=== PATIENT | male | born 1945 | race Caucasian/White ===

== ENCOUNTER 2016-10-26 20:18 | Emergency (ER) | payer MEDICARE, OTHER ==
[~2016-10-26] VITALS: Ht 175.3 cm; Wt 113.8 kg
[~2016-10-26 20:18] MED LIST: BENADRYL ALLERG25 MG PO; COUMADIN5 MG PO; DILAUDID4 MG PO; ENOXAPARIN120 MG/0.8 SUB-Q; FAMOTIDINE40 MG PO; FENOFIBRATE40 MG PO; GLUCOPHAGE XR500 MG PO; IRON325 MG PO; LEVOTHYROXINE50 MCG PO; LISINOPRIL5 MG PO; METOPROLOL SUCC50 MG PO; MIRALAX17 GM PO; OXYCODONE HCL10 MG PO; PERCOCET 10-321 EACH PO; PERCOCET 5-3251 EACH PO; SUPER B COMPLE1 EACH PO; TOPROL XL100 MG PO; TOPROL XL50 MG PO; XARELTO10 MG PO; XARELTO20 MG PO; ZOSTAVAX VIAL1 VIAL SUB-Q
[2016-10-26] MEDS ORDERED: EZETIMIBE10 MG PO (20:28)
--- NOTE | 2016-10-27 12:27 | EKG ---
[facility] [address] [facility] [place], [place] [address] Signed Normal sinus rhythm Normal ECG No previous ECGs available Confirmed by SUREKHA ESPARZA MD ([id number]) on 10/27/2016 12:27:43 PM Electronically Signed By: SUREKHA ESPARZA MD 10/27/16 1227 PATIENT NAME: NOLA VELASCO JR Electrocardiogram DATE OF : 47 PHYSICIAN: SUREKHA ESPARZA MD REPORT #: [id number] REPORT IS CONFIDENTIAL AND NOT TO BE RELEASED WITHOUT AUTHORIZATION
[2016-11-07] MEDS ORDERED: BAYER CHEWABLE81 MG PO (08:32)
[2016-11-07] MEDS ORDERED: PLAVIX75 MG PO (08:32)
[2017-01-16] MEDS ORDERED: VITAMIN D1000 UNI1 PO (08:44)
== END 2016-10-27 01:49 | disposition short-term general hospital (02) ==
LOC: ED 20:18
DX: I20.0 Unstable angina (principal); E11.9 Type 2 diabetes mellitus without complications; E78.00 Pure hypercholesterolemia, unspecified; I10 Essential (primary) hypertension; E03.9 Hypothyroidism, unspecified; Z87.891 Personal history of nicotine dependence; Z88.0 Allergy status to penicillin; Z88.5 Allergy status to narcotic agent; Z88.8 Allergy status to other drugs, medicaments and biological substances; Z90.49 Acquired absence of other specified parts of digestive tract; Z96.653 Presence of artificial knee joint, bilateral; Z96.612 Presence of left artificial shoulder joint; Z79.899 Other long term (current) drug therapy; Z79.84 Long term (current) use of oral hypoglycemic drugs
CPT/HCPCS: 71010; 80053; 82550; 82553; 83735; 83874; 84484; 85025; 85610; 85730; 93005; 93010; 99285

== ENCOUNTER 2017-10-15 18:27 | Emergency (ER) | payer MEDICARE, OTHER ==
[~2017-10-15] VITALS: Ht 175.3 cm; Wt 113.8 kg
[~2017-10-15 18:27] MED LIST changes: +BAYER CHEWABLE81 MG PO; +EZETIMIBE10 MG PO; +PLAVIX75 MG PO; +VITAMIN D1000 UNI1 PO
== END 2017-10-15 19:05 | disposition home or self-care (01) ==
LOC: ED 18:27
DX: S51.012A Laceration without foreign body of left elbow, initial encounter (principal); E11.9 Type 2 diabetes mellitus without complications; E78.00 Pure hypercholesterolemia, unspecified; I10 Essential (primary) hypertension; E03.9 Hypothyroidism, unspecified; Z87.891 Personal history of nicotine dependence; Z88.0 Allergy status to penicillin; Z88.8 Allergy status to other drugs, medicaments and biological substances; Z88.5 Allergy status to narcotic agent; Z88.1 Allergy status to other antibiotic agents; Z79.899 Other long term (current) drug therapy; Z79.84 Long term (current) use of oral hypoglycemic drugs; Z79.01 Long term (current) use of anticoagulants; W22.8XXA Striking against or struck by other objects, initial encounter
CPT/HCPCS: 99282

== ENCOUNTER 2019-02-10 15:20 | Inpatient (IN) | payer MEDICARE, OTHER ==
[~2019-02-10] VITALS: Ht 175.3 cm; Wt 119.3 kg
--- OUTSIDE RECORDS SUMMARY | ~2019-02-10 | XMS | Encounter Summary ---
Demographics + + + | Address | [address] | | | [place] [address] | + + + | Home Phone | | + + + | Preferred Language | Unknown | + + + | Marital Status | | + + + | Moravian Affiliation | NRP | + + + | Race | White | + + + | Ethnic Group | Not or | + + + Author + + + | Organization | Unknown | + + + | Address | Unknown | + + + | Phone | Unavailable | + + + Support + + +---------+ + | Name | Relationship | Address | Phone | + + +---------+ + | Lara Azevedo | BECKY | Unknown | | + + +---------+ + Care Team Providers + +------+ + | Care Black Studies Professor Name | Role | Phone | + +------+ + | Kait Velazquez MD PCP | | + +------+ + Encounter Details +--------+--------+ + + + | Date | Type | Department | Care Team | Description | +--------+--------+ + + + | 11/19/ | Travel | | | | | 2019 | | | | | +--------+--------+ + + + Social History + +-------+ [...] Description | +--------+---------+ + + + | 02/18/ | Office | Urology | Andrew Cloud, | | | 2018 | Visit | | [address] | | | | | | [address] | | | | | | [place] [address] | | | | | | [phone] | | | | | | | | +--------+---------+ + + + | 02/28/ | Office | Neurological Surgery | Cosme Baker, | | | 2019 | Visit | | [address] | | | | | | [place] | | | | | | [address] | | | | | | | | +--------+---------+ + + + documented as of this encounter Visit Diagnoses Not on filedocumented in this encounter"
--- OUTSIDE RECORDS SUMMARY | ~2019-02-10 | XMS | Encounter Summary ---
Demographics + + + | Address | [address] | | | [place] [address] | + + + | Home Phone | | + + + | Preferred Language | Unknown | + + + | Marital Status | | + + + | Temple Affiliation | NRP | + + + [...] Team Providers + +------+ + | Care Signal Maintainer Name | Role | Phone | + [...] INTERBODY FUSION | | | | [address] [place], [place] | [address] | L4-5/TRANSFORAMINAL | | | | [address] | [place] [address] | INTERBODY FUSION | | | | | [phone] | L5-S1/POSTERIOR | | | | | [...] + documented as of this encounter Discharge Instructions Discharge Instr - [...] -No forward bending to the floor to fern picker objects -Keep head above the level [...] NOT RESTART THESE MEDICATIONS UNTIL CLEARED BY [facility] NE[facility]OS[facility]ERY. Activity: -Activity instructions: no strenuous exercise, no bending/twisting, lifting restricted to < 1/2 gallon of milk in weight. -No forward bending to the floor to fern picker objects -Keep head above the level [...] appt. Check in on 1st Floor in [address] [place] [address] Building. Office Address: Dr Sanjay Finnegan [facility] [address], [address] [place] [address] PPD per policy Facility MD to follow/manage patient "I certify that post-hospital inpatient fdc facility care is medically necessar y on [...] - 02/10/2019 11:27 AM PDTPt discharged to [facility]. Pt left at 1125. [facility] [place]. Medicated with Robaxin and oxycodone prio [...] for d/c: Discharge to swing bed at [facility] ([phone]). RNC M received message regarding call from Maryann at [facility]. RNCM left voice message request ing call back to discuss discharge planning. Discharge destination: [facility] ([phone]) Transportation (mode/via): [facility] / Stretcher Patient Support/Family Contact (name & #): JASMIN AZEVEDO (spouse) : [phone] Potential Barriers to discharge : None Communication: Hospitalist and message left for floor RN. Brigid Suresh RN ladys Motta P A-C - 02/10/2019 9:03 AM PDT [...] 10 mg 10 mg oral QPM Perico Brwon MD 10 mg at 01/15 apixaban (ELIQUIS) [...] 1 capsule 1 capsule oral DAILY Cryst al Tamar Pagan, RD 1 capsule at 02/10/19 0819 [...] Marvin Coburn MD 50 mg at 02/09/19 2047 mineral oil (FLEET MINERAL OIL) rectal enema [...] Marvin Coburn MD 34 g a t 02/07/195 senna-docusate (SENOKOT S) 8.6-50 mg 2 tablet [...] 5 C8 (Wrist Ext) 5 5 C8 (Herb Digger) 5 5 T1 (Pinky Abd) 5 5 [...] Care Post-Op Abx: -Cipro 400 mg IV [id number] Consults: -Hospitalist service to assess medical issues. [...] Discharge to SNF today. Gladys Motta PA-C [facility] MED SURG [address] [address] Chloe Del Angel DO - 02/09/2019 8:55 [...] hours) at 02/09/20192054 Last data filed at 02/09/2019 181 Gross per 24 hour Intake 250 ml [...] started. Montano came out and patient is voi ding w/o difficulty. #Opiate-induced constipation: Continue senna and [...] Contact - Anticipated Discharge - Sunday to [facility] Chloe Osei DO [facility] Medicine This note was written using the assistance of [employer] dictation software. I spent more than 25 [...] by RNCM. [facility] E[facility]. Original document given to Patient. 02/09/19 at 1615 Yvonne DELEON automotive glass technician Marvin Rodríguez M D - 02/09/2019 7:31 [...] QPM, Perico Brown MD, 10 mg at 2217 bisacodyl (DULCOLAX) suppository 10 mg, 10 mg, [...] QPM, Chloe Osei DO, 40 mg at 02/08/192217 famotidine (PEPCID) tablet 20 mg, 20 mg, oral, BID, Sanjay Finnegan MD, 20 mg at 02/08/192217 glucagon (GLUCAGEN) injection 1 mg, 1 mg, intramuscular, PRN, Gianna Glynn MD hydrocortisone 1 % cream, , topical, BID, Sanjay Finnegan MD insulin lispro (HUMALOG) injection 1-11 Units, 1-11 Units, subcutaneous, TID W/MEALS, Minet effie Glynn MD, 1 Units at 02/08/19 0100 lactobacillus [...] 133 mL, rectal, DAILY PRN, Cosme sifuentes, PA-C, 133 mL at 02/06/19 1733 ondansetron [...] lumbar region Essential hypertension Coronary arteriosclerosis in sokaogon artery Chronic anticoagulation Chronic deep vein thrombosis (DVT) of femoral vein of left lower extremity (HCC) Dyslipidemia Hypothyroidism Morbid obesity (HCC) Obstructive sleep apnea syndrome Paroxysmal atrial fibrillation (HCC) Status post insertion of drug-eluting stent into left anterior descending (LAD) artery 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 [...] then voiding trial in their office at [facility] t time. No prophylactic abx indicated for [...] given his procedure and duratio n/distance to [facility].Pt will require medication prior to discharge. I saw and performed a physical examination of the patient and discussed the patient's manag ement with Dr Coburn's. I reviewed Dr Coburn note and agree with the documented findings and plan of care. Jamie Deng MD [facility] Department of Neurological Detective Bureau ChiefStaining Machine Operator hloe Osei, DO - 1 4:24 PM PDT Hospital [...] Contact - Anticipated Discharge - Sunday to [facility] Chloe Osei DO Hospital Medicine This note was written using the assistance of [employer] dictation software. 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 [...] then voiding trial in their office at [facility] t time. No prophylactic abx indicated for [...] DVT DVT prophylaxis Jamie Deng MD [facility] Department of Neurological Detective Bureau ChiefStaining Machine Operator Marvin Coburn MD - 02/07/2019 8:07 PM PDTFormatting of [...] 4 mg, 4 mg, intravenous, Q12H, Kenyetta Osei, dextrose (GLUTOSE) 40 % gel 15 g, [...] 1-11 Units, 1-11 Units, subcutaneous, TID W/MEALS, Mineramiro Davis MD, 1 Units at 02/07/19 1713 labetalol (TRANDATE) IV injection 10-20 mg, 10-20 mg, intravenous, Q10MIN PRN, Marvin roland MD lactobacillus rhamnosus (GG) (CULTURELLE) capsule 1 capsule, 1 capsule, oral, DAILY, Smitha Pagan RD, 1 capsule at 02/07/19 0758 levothyroxine tablet [...] lumbar region Essential hypertension Coronary arteriosclerosis in sokaogon artery Chronic anticoagulation Chronic deep vein thrombosis [...] Post-Op Abx: -Continue Cipro 400 mg IV [id number] Consults: -Hospitalist service to assess medical issues. [...] Coburn MD Neurosurgery, PGY-4 8:12 PM 02/07/2019 hloe roger, DO - 1 7:01 PM PDT [facility] Medicine Progress Note Hospital Day# 4 Interval [...] Discharge - 1-2 days to SNF Chloe Osei, DO Hospital Medicine This note was written using the assistance of [employer] dictation software. I spent more than 35 [...] for SNF rehab have been placed to [facility], [facility] and [facility] Transitional Care unit. All 3 faciliti es has accepted patient. Patient and his would like to go to [facility]. RNCM contacted [facility], and [facility] to advise that patient has elected to go to [facility] in [place] which is where he lives. Transportation discussed. Patient and have elected to use [employer] stretcher transpo rt. They are aware that they may be financially respondsive and have made a 50% payment to [employer]. Transport is tentatively scheduled for Sunday @ 9 am. RNCM left message for [facility] @ [facility], about their ability to accept patie nt [...] patient and his . Patient lives in [facility]. They are agreeable to SNF rehab. Provided list of SNF facility in [place] as requested from Medicare.gov. Referrals sent to [facility] [place], [facility] and [facility] Transitional care unit in [place]. Transport discussed with . Will need to determine if patient will require stretcher vs reclining w/c. Arranged by: June Bell RN onnors, Yue Boyle RD - 02/06/2019 3:02 PM PDTFormatting of [...] [facility] [address] [facility] [place] [address] [id number] signed by Yue Pagan RD at 02/06/2019 3:06 PM PDTGiles, Cosmezbigniew Mahoney PA-C - 02/06/2019 1:49 PM PDTFormatting of this note might be different from th e original. Neurosurgery - Follow Up Chief Complaint: [...] to void spontaneously. He has been straight access hospital dayton'ed multiple times. No BM yet. He was [...] capsule, 1 capsule, oral, DAILY, Smitha Pagan, RD, 1 capsule at 02/06/19 1613 levothyroxine [...] Marvin Coburn MD, 50 mg at 02/05/19 2155 mineral oil (FLEET MINERAL OIL) rectal enema [...] lumbar region Essential hypertension Coronary arteriosclerosis in sokaogon artery Chronic anticoagulation Chronic deep vein thrombosis [...] Post-Op Abx: -Continue Cipro 400 mg IV [id number] Consults: -Hospitalist service to assess medical issues. [...] ready. -Consult case management. COSME KENNY PA-C [facility] [address] [facility] [address] [facility] [address] [place] [address] Associated attestation - Jamie Deng MD - 02/06/2019 9:08 PM PDTNeurosurgery Attend ing I saw and performed a physical examination of the patient and discussed the patient's manag ement with MAKSIM Kenny. I reviewed MAKSIM Kenny note and agree with the documented findings and yanci n of care. Jamie Deng MD [facility] Department of Neurological Detective Bureau ChiefStaining Machine Operator Josee Wilson RN - 02/06/2019 2:00 AM PDTWife left beside as patient appears to be comfo rtable and resting. Pain currently controlled with IV dilaudid and first dose of IV decadron . Patient aroused with gentle touch. Bed alarm placed. osee Wilson RN - 02/05/2019 9:37 PM PDTPatient confused [...] by Josee Wilson RN at 9:48 PM PDTLadiges, Gladys To PA-C - 02/05/2019 10:51 AM PDT Neurosurgery [...] Q12H Sanjay Finnegan MD Stopped at 02/05/19 09 hydrALAZINE (APRESOLINE) injection 10-20 mg 10-20 mg intravenous Q10MIN PRN Marvin alvarez MD hydrocortisone 0.5 % cream topical BID [...] Marvin Coburn MD 500 mg a t 02/04/191952 metoclopramide HCl (REGLAN) injection 5-10 mg 5-10 mg intravenous Q4H PRN Marvin roland MD metoclopramide HCl (REGLAN) tablet 5-10 mg 5-10 mg oral Q4H PRN Marvin Coburn MD metoprolol succinate (TOPROL-XL) tablet 50 mg 50 mg oral HS Marvin Coburn MD 50 mg at 02/04/192134 ondansetron (ZOFRAN) injection 4 mg 4 mg [...] lumbar region Essential hypertension Coronary arteriosclerosis in sokaogon artery Chronic anticoagulation Chronic deep vein thrombosis [...] ready. -Consult case management. Gladys Motta PA-C [facility] MED SURG [address] [address] Apolonia Pickard RN - 02/04/2019 1:07 PM [...] Provider: CPAP Home Health/Infusion Agency: N/A Insurance/Funding: @PAYORNAME@, Assessment: Antonio Azevedo is a 74 y.o. male HD#1 with lumbar DDD, L4-S1 foraminal stenosi s, degenerative scoliosis s/p L4-5 XLIF/L5-S1 TLIF/L4-S1 PIF on 02/03/19. Spoke with patient and Jasmin [phone] at bedside. The plan is to discharge [...] in place BRIONNA outputs since [place]: flank=50, kdst=067 OBJECTIVE: Last 24 hour min/max Temp: 37.7 [...] intake/output data recorded. 02/03 0701 - 02/04 0700 In: 4253.8 [P.O.:600; I.V.:3653.8] Out: 1410 [Urine:1250; [...] sample for T&Sc confirmatory. Lab called . 0845 Lab here to draw spec. Call placed into the [place] to report patient's yeast areas, additional order received. 2177 Fluconazole hung. P DTdocumented in this encounter Plan of Treatment +--------+---------+ + + + | Date | Type | Specialty | Care Team | Description | +--------+---------+ + + + | 02/18/ | Office | Urology | Andrew Cloud, | | | 2019 | Visit | | MD [address] | | | | | | [address] | | | | | | [place] [address] | | | | | | [phone] | | | | | | | | +--------+---------+ + + + | 02/28/ | Office | Neurological Surgery | Cosme Kenny, | | | 2019 | Visit | | MAKSIM[facility] [address] | | | | | | [place], [place] | | | | | | [address] | | | | | | | | +--------+---------+ + + + + + +--------+ + + | Name | Type | Priori | Associated Diagnoses | Order Schedule | | | | ty | | | + + +--------+ + + | GLUCOSE, POC | Lab - Point | Routin | | As Needed for 20 | | | of Care | e | | Occurrences starting | | | Interface | | | 02/06/2019 | + + +--------+ + + documented as of this encounter [...] Note | + -------+ | Service Account, Picturae Res In Interface - 02/06/2019 3:03 PM PDT [...] RADIOLOGY | [address] | [place] [address] | [phone] | | VOICE RECOGNITION | | | [...] Note | + --------+ | Service Account, Picturae Res In Interface - 02/06/2019 2:55 PM [...] RADIOLOGY | [address] | [place] [address] | [phone] | | VOICE RECOGNITION | | | [...] to this test. | | | | [facility] | | | [facility] | + + + + + + + + | Performing | Address | City/State/Zipcode | Phone Number | | Organization | | | | + + + + + | [facility] | [address] | [place] [address] | | | LAB | | | | + + + + + MAGNESIUM, PLASMA (02/06/2019 1:46 PM PDT) + +-------+ + + + | Component | Value | Ref Range | Performed | Pathologist | | | | | At | Signature | + +-------+ + + + | MAGNESIUM,P | 2.1 | 1.6 - 2.6 mg/dL | [facility] | | | [facility] | | | [...] [facility] | [address] | [place] [address] | | | LAB | | | [...] | | [facility] | | | [place] [facility] | | | | | + +---------+ [...] [facility] | [address] | [place] [address] | | | LAB | | | [...] | [address] | [place], [place] [address] | | | LAB | | | [...] [facility] | [address] | [place] [address] | | | LAB | | | [...] [facility] | [address] | [place] [address] | | | LAB | | | [...] [facility] | [address] | [place] [address] | | | LAB | | | [...] | | [facility] | | | [place] | | | | | + +---------+ [...] Disease Education Program. Estimated GFR Interpretive | [facility] | | Information: <60 mL/min/1.73 sq m [...] [facility] | [address] | [place] [address] | | | LAB | | | [...] gross fracture identified. Vertebral body heights appear maintainmario dMayo | | | |IMPRESSION: | |Status post [...] RADIOLOGY | [address] | [place] [address] | [phone] | | VOICE RECOGNITION | | | [...] RADIOLOGY | [address] | [place] [address] | [phone] | + + + + + CONFIRMATORY [...] BLOOD | [address] | [place] [address] | | | BANK | | | [...] | | | 02/06/19 at 1829, Until | | | | | | | Discontinued, fever, mild pain | | | | | | [...] | | | | | modification) on [facility] 02/06/19 at | | | | [...] DAILY, First | | | dose on 02/10/19 at 2100, | | | Until Discontinued [...] g, oral, NEEDED, | | | Starting [facility] 02/06/19 at 2220, | | | Until Discontinued, PRN blood | | | glucose LESS THAN 70. Give if | | | able to take PO. May substitute | | | with 4 ounces juice or regular | | | soda, or 8 ounces fat free or 1% | | | milk | | + +---+ | | | + +---+ | dextrose 50 % in water IV 25 mL | | | 25 mL, intravenous, NEEDED, | | | Starting [facility] 02/06/19 at 2220, | | | Until Discontinued, CBG less than | | | 70 mg/dL if unable to take PO | | + +---+ | | | + +---+ + +-------+ +-------+---+---+ | famotidine (PEPCID) tablet 20 | Given | 02/11/20 | 20 mg | | | | mg 20 mg, oral, TWICE DAILY, | | 19 8:19 | | | | | First dose on [facility] 02/06/19 at | | AM PDT [...] 02/06/19 at | | | 2220, Until Discontinued, CBG | | | less than 70 mg/dL per Adult | [...] | | WITH MEALS, First dose on Sun | | | | | | | [...] PDT | | | | | Until Discontinued, insomnia | | | | | | [...] | | | 02/03/19 at 1850, Until | | | | | | | Discontinued, muscle spasms | | | | | [...] | | Tiara 02/06/19 at 1144, Until | | | | | | | Discontinued, constipation | | | | | | + +-------+ +--------+---+---+ +---+---+ | | | +---+---+ + +-------+ +------+---+---+ | oxyCODONE (immediate release) | Given | 02/11/20 | 5 mg | | | | (ROXICODONE) tablet 5-15 mg 5-15 | | 19 11:00 | | | | | mg, oral, EVERY 3 HOURS | | AM PDT | | | | | NEEDED, Starting 02/03/19 at | | | | | | | 1850, Until Discontinued, | | | | | | | [...] | | | | First dose on 02/03/19 at | | AM PDT | | [...] | | | 02/03/19 at 1850, Until | | | | | | | Discontinued, 1st line - for no | | | | | | | BM for 2 days | | | [...] | | | | | dose on 02/05/19 at 1230, | | AM PDT | [...] +-------+ +--------+---+---+ +---+---+ | | | +---+---+ +---+ | | +---+ + +--------+ +---------+------+ + | Medication Order | MAR | Action | Dose | Rate | Site | | | Action | Date | | | | + +--------+ +---------+------+ + | bacitracin (BACIIM) injection | Given | 02/04/20 | 50,000 | | Surgical | | INTRAPROCEDURE PRN, Starting Mon | | 19 12:28 | Units | | Site | | 02/03/19 at 1228, Until Mon | | PM PDT | | | | | 02/03/19 at 1637 | | | | | | + +--------+ +---------+------+ + +---+---+ | | | +---+---+ documented in this encounter
--- OUTSIDE RECORDS SUMMARY | ~2019-02-10 | XMS | Encounter Summary ---
Demographics + + + | Address | [address] | | | [place] [address] | + + + | Home Phone | | + + + | Preferred Language | Unknown | + + + | Marital Status | | + + + | Nondenominational Affiliation | NRP | + + + [...] Team Providers + +------+ + | Care Arc Furnace Operator Name | Role | Phone | [...] | | | | [address] | [place] [address] | | | | | [place], [place] | [phone] | | | | | [address] | | | | | | [phone] | | | +--------+ + + + [...] | Visit | | [address] | | | | | | [facility] [address] | | | | | | [place] [address] | | | | | | [phone] | | | | | | | | +--------+---------+ + + + | 02/28/ | Office | Neurological Surgery | Cosme Baker, | | | 2018 | Visit | | [facility] [address] | | | | | | [place] | | | | | | [address] | | | | | | | | +--------+---------+ + + + documented as of this encounter Visit Diagnoses Not on filedocumented in this encounter"
--- OUTSIDE RECORDS SUMMARY | ~2019-02-10 | XMS | Encounter Summary ---
Demographics + + + | Address | [address] | | | [place] [address] | + + + | Home Phone | | + + + | Preferred Language | Unknown | + + + | Marital Status | | + + + | Nondenominational Affiliation | Unknown | + + + | Race | Unknown | + + + | Ethnic Group | Unknown | + + + Author + + + | Author | [facility] | | | and [place] | + + + | Organization | [facility] | | | [...] Team Providers + +------+ + | Care Warehouse Associate Driver Name | Role | Phone | + +------+ + | Kait Velazquez MD | PCP | | + +------+ + Reason for Visit +--------+ + | Reason | Comments | +--------+ + | Other | Lab codes | +--------+ + Encounter Details +--------+ + + + + | Date | Type | Department | Care Team | Description | +--------+ + + + + | 11/14/ | Telephone | [facility] | Shemar Gillis, | Other (Lab codes) | | 2019 | | PHYSIATRY [address] | PA-C [address] | | | | | [place], | [address] [place] | | | | | [place] [address] | [place] [address] | | | | | [phone] | [phone] | | | | | | | [...] + +---------+ + | Alcohol Use | Drinks/We | oz/Week | Comments | | | ek | | | + + +---------+ + | Yes [...] Description | +--------+---------+ + + + | 02/12/ | Office | Cardiology | Bing Terrazas, | | | 2019 | Visit | | MD [address] | | | | | | [place] | | | | | | [address] | | | | | | | | +--------+---------+ + + + documented as of this encounter Visit Diagnoses Not on filedocumented in this encounter"
--- OUTSIDE RECORDS SUMMARY | ~2019-02-10 | XMS | Encounter Summary ---
Demographics + + + | Address | [address] | | | [place] [address] | + + + | Home Phone | | + + + | Preferred Language | Unknown | + + + | Marital Status | | + + + | Zoroastrian Affiliation | NRP | + + + [...] Team Providers + +------+ + | Care Wet Pan Operator Name | Role | Phone | + +------+ + PCP | Unavailable | + +------+ + Encounter Details +--------+ + + + + | Date | Type | Department | Care Team | Description | +--------+ + + + + | 10/07/ | Document-Sc | [facility] | Sanjay Finnegan MD | | | 2019 | anned | [facility] | [address] | | | | | [address] | [address] | | | | | [address] | [place] [address] | | | | | [place], [place] | [phone] | | | | | [address] | | | | | | [phone] | | | +--------+ + + + [...] | | | | | | [address] | | | | | | [place] [address] | | | | | | [phone] | | | | | | | | +--------+---------+ + + + | 02/28/ | Office | Neurological Surgery | Cosme Baker, | | | 2018 | Visit | | [facility] [address] | | | | | | [place], [place] | | | | | | [address] | | | | | | | | +--------+---------+ + + + documented as of this encounter Procedures + +--------+ + + + | Procedure Name | Priori | Date/Time | Associated Diagnosis | Comments | | | ty | | | | + +--------+ + + + | OUTSIDE RADIOLOGY - | | 10/07/2018 | | Results for this | | MRI | | 12:00 AM | | procedure are in the | | | | PDT | | results section. | + +--------+ + + + documented in this encounter Results OUTSIDE RADIOLOGY - MRI (10/07/2018 12:00 AM PDT) + + + | Narrative | Performed At | + + + | | | + + + documented in this encounter Visit Diagnoses Not on filedocumented in this encounter"
--- OUTSIDE RECORDS SUMMARY | ~2019-02-10 | XMS | Encounter Summary ---
Demographics + + + | Address | [address] | | | [place] [address] | + + + | Home Phone | | + + + | Preferred Language | Unknown | + + + | Marital Status | | + + + | Adventist Affiliation | NRP | + + + | Race | White | + + + | Ethnic Group | Not or | + + + Author + + + | Author | [facility] | + + + | Organization | [facility] | + + + | Address | Unknown | + + + | Phone | Unavailable | + + + Support + + +---------+ + | Name | Relationship | Address | Phone | + + +---------+ + | Lara Azevedo | ECON | Unknown | | + + +---------+ + Care Team Providers + +------+ + | Care Child Development Professor Name | Role | Phone | + +------+ + PCP | Unavailable | + +------+ + Encounter Details +--------+ + + + + | Date | Type | Department | Care Team | Description | +--------+ + + + + | 06/23/ | Hospital | Dermatopathology | | | | 2017 | Encounter | [address] | | | | | | Mailcode: [id number] | | | | | | [facility] | | | | | | and Healing, | | | | | | [facility] [address] | | | | | | [place], [place] | | | | | | [address] | | | | | | [phone] | | | +--------+ + + + [...] | | 2018 | Visit | | MD Nima Kelly | | | | | | [facility] [address] | | | | | | [place] [address] | | | | | | [phone] | | | | | | | | +--------+---------+ + + + | 02/28/ | Office | Neurological Surgery | Cosme Baker, | | | 2019 | Visit | | [address] | | | | | | [place], [place] | | | | | | [address] | | | | | | | | +--------+---------+ + + + documented as of this encounter Procedures + +--------+ + + + | Procedure Name | Priori | Date/Time | Associated Diagnosis | Comments | | | ty | | | | + +--------+ + + + | DERM PATHOLOGY | Routin | 06/23/2016 | Other seborrheic | Results for this | | | e | | keratosis Carcinoma | procedure are in the | | | | | in situ of skin of | results section. | | | | | other parts of face | | + +--------+ + + + documented in this encounter Results DERM PATHOLOGY (06/23/2016) + + + + + + | Component | Value | Ref Range | Performed | Pathologist | | | | | At | Signature | + + + + + + | DERMATOPATH | SOURCE OF SPECIMEN:A Rt. | | [facility] | | | OLOGY(WET | dorsal arm, shave | | DERMATOPATH | | | MNT) | biopsySOURCE OF | | OLOGY | | | | SPECIMEN:B Rt. | | | | | | preauricular, shave | | | | | | biopsy CLINICAL | | | | | | DESCRIPTION:A: 4 x 4 | | | | | | pink papule; r/o NMSC.B: | | | | | | 3 x 3 mm pink papule; | | | | | | r/o MNSC. GROSS | | | | | | DESCRIPTION:Received in | | | | | | formalin are two | | | | | | specimens labeled | | | | | | Antonio Azevedo:A: | | | | | | Specimen is labeled "A | | | | | | | | | | | | | | | | | | R dorsal arm" and | | | | | | consists of an | | | | | | irregularshave of | | | | | | papular white-rico skin, | | | | | | [id number]. The surgical | | | | | | margin is inkedblack; | | | | | | the tissue is bisected, | | | | | | and entirely submitted | | | | | | in cassette A1.B: | | | | | | Specimen is labeled "B | | | | | | | | | | | | | | | | | | R preauricular" and | | | | | | consists of an | | | | | | irregularshave of scaly | | | | | | papular white-rico skin, | | | | | | [id number]. The surgical | | | | | | margin isinked black; | | | | | | the tissue is bisected, | | | | | | and entirely submitted | | | | | | in cassette B1. | | | | | | MICROSCOPIC | | | | | | DESCRIPTION:A: There is | | | | | | epidermal hyperplasia | | | | | | with interweaving of the | | | | | | rete and nucleiof | | | | | | uniform size and shape. | | | | | | B: There is an | | | | | | asymmetric and poorly | | | | | | circumscribed neoplasm | | | | | | characterizedby | | | | | | parakeratosis overlying | | | | | | atypical keratinocytes | | | | | | at all levels of | | | | | | theepidermis. Most of | | | | | | the cells have | | | | | | pleomorphic, | | | | | | hyperchromatic nuclei, | | | | | | someare in mitosis, and | | | | | | most have eosinophilic | | | | | | cytoplasm. | | | | | | DIAGNOSIS:A: SEBORRHEIC | | | | | | KERATOSIS. B: | | | | | | SQUAMOUS CELL CARCINOMA | | | | | | IN SITU, INVOLVING | | | | | | FOLLICULAR EPITHELIUM. | | | | | | NOTE: The right | | | | | | pre-auricular SQUAMOUS | | | | | | CELL CARCINOMA IN SITU | | | | | | extends tothe surgical | | | | | | margins of the shave | | | | | | specimen and additional | | | | | | treatment toassure | | | | | | complete removal would | | | | | | be prudent. My | | | | | | electronic signature | | | | | | indicates that I have | | | | | | personally reviewed | | | | | | alldiagnostic slides, | | | | | | the gross and/or | | | | | | microscopic portion of | | | | | | thisreport and | | | | | | formulated the final | | | | | | diagnosis. 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
--- OUTSIDE RECORDS SUMMARY | ~2019-02-10 | XMS | Clinical Summary ---
Demographics + + + | Address | [address] | | | [place] [address] | + + + | Home Phone | | + + + | Preferred Language | Unknown | + + + | Marital Status | | + + + | Baptism Affiliation | Unknown | + + + | Race | Unknown | + + + | Ethnic Group | Unknown | + + + Author + + + | Author | [facility] | | | and [place] | + + + | Organization | [facility] | | | and [...] Team Providers + +------+ + | Care Produce Clerk Name | Role | Phone | + +------+ + | Kait Velazquez MD | PCP | | + +------+ + Allergies + + + + + + | Active Allergy | Reactions | Severity | Noted | Comments | | | | | Date | | + + + + + + | Food | Shortness Of Breath | High | 10/11/19 | Seafood, shellfish | | | | | 18 | | + + + + + + | Formaldehyde | Shortness Of Breath | High | 10/28/19 | | | | | | 17 | | + + + + + + | Hydrocodone-Acetamin | Rash | Low | 09/21/19 | | | ophen | | | 17 | | + + + + + + | Iodinated Diagnostic | Shortness Of Breath, | High | 10/28/19 | Trouble Breathing | | Agents | Rash | | 17 | | + + + + + + | Iodine | Anaphylaxis | High | 10/12/19 | | | | | | 18 | | + + + + + + | Lovastatin | Anaphylaxis, | High | 09/21/19 | Aches and pains | | | Diarrhea, Nausea And | | 17 | | | | Vomiting | | | | + + + + + + | Niacin And Related | Other (See Comments) | | 10/28/19 | Doesn't recall | | | | | 17 | | + + + + + + | Penicillins | Shortness Of Breath, | High | 09/21/19 | | | | Rash | | 17 | | + + + + + + | Povidone Iodine | Hives | | 10/26/19 | | | | | | 19 | | + + + + + + | Sodium Chloride | Shortness Of Breath | High | 10/28/19 | "hallogens" | | | | | 17 | | + + + + + + | Tamsulosin | Other (See Comments) | Medium | 09/21/19 | Unable to remember | | | | | 17 | | + + + + + + Medications + + + +---------+------+------+-------+ | Medication | Sig | Dispensed | Refills | Star | End | Statu | | | | | | t | Date | s | | | | | | Date | | | + + + +---------+------+------+-------+ | levothyroxine | Take 50 mcg by mouth | | 0 | | | Activ | | (SYNTHROID) 50 mcg | Daily. | | | | | e | | tablet | | | | | | | + + + +---------+------+------+-------+ | metoprolol | Take 50 mg by mouth | | 0 | | | Activ | | succinate | nightly. | | | | | e | | (TOPROL-XL) 50 mg 24 | | | | | | | | hr tablet | | | | | | | + + + +---------+------+------+-------+ | nitroglycerin | Place 0.4 mg under | | 0 | 07/1 | | Activ | | (NITROSTAT) 0.4 mg | the tongue as | | | 5/20 | | e | | SL tablet | needed. | | | 17 | | | + + + +---------+------+------+-------+ | aspirin 81 MG | Take 81 mg by mouth | | 0 | | | Activ | | tablet | Daily. | | | | | e | + + + +---------+------+------+-------+ | ELIQUIS 5 MG | Take 1 tablet by | | 4 | 08/2 | | Activ | | tablet | mouth 2 times daily. | | | 2/20 | | e | | | | | | 18 | | | + + + +---------+------+------+-------+ | lisinopril | Take 10 mg by mouth | | 0 | | | Activ | | (PRINIVIL, ZESTRIL) | Daily. | | | | | e | | 10 mg tablet | | | | | | | + + + +---------+------+------+-------+ | amitriptyline | Take 50 mg by mouth | | 0 | | | Activ | | (ELAVIL) 50 mg | nightly. | | | | | e | | tablet | | | | | | | + + + +---------+------+------+-------+ | oxyCODONE | Take 5 mg by mouth | | 0 | | | Activ | | (ROXICODONE) 5 mg | every 12 hours as | | | | | e | | tablet | needed for Pain. | | | | | | + + + +---------+------+------+-------+ | ezetimibe (ZETIA) | take 1 tablet by | 90 | 3 | 10/2 | | Activ | | 10 mg tablet | mouth once daily | tablet | | 1/20 | | e | | | | | | 19 | | | + + + +---------+------+------+-------+ | Desoximetasone | Apply 1 Application | | 0 | | 10/1 | Disco | | 0.05 % GEL | topically 2 times | | | | 7/20 | ntinu | | | daily. | | | | 19 | ed | + + + +---------+------+------+-------+ | cetirizine | Take 10 mg by mouth | | 0 | | 10/1 | Disco | | (ZYRTEC) 10 mg | Daily. | | | | 7/20 | ntinu | | tablet | | | | | 19 | ed | + + + +---------+------+------+-------+ | ezetimibe (ZETIA) | Take 10 mg by mouth | | 0 | | 10/2 | Disco | | 10 mg tablet | Daily. | | | | /20 | ntinu | | | | | | | 19 | ed | + + + +---------+------+------+-------+ | ezetimibe (ZETIA) | take 1 tablet by | | 0 | 07/1 | 10/1 | Disco | | 10 mg tablet | mouth once daily | | | 7/20 | 7/20 | ntinu | | | | | | 19 | 19 | ed | + + + +---------+------+------+-------+ | diphenhydrAMINE | Take 25 mg by mouth | | 0 | | 10/1 | Disco | | (BENADRYL) 25 mg | Daily. Take two | | | | 7/20 | ntinu | | tablet | tablets by mouth | | | | 19 | ed | | | nightly | | | | | | + + + +---------+------+------+-------+ Active Problems + + + | Problem | Noted Date | + + + | Expected difficult intubation | 01/23/2019 | + + + | Paroxysmal atrial fibrillation | 12/26/2018 | + + + | Status post insertion of drug-eluting stent into left anterior | 12/26/2018 | | descending (LAD) artery | | + + + | Dyslipidemia | 12/26/2018 | + + + | Statin intolerance | 12/26/2018 | + + + | Essential hypertension | 12/26/2018 | + + + | Recurrent deep vein thrombosis (DVT) | 12/26/2018 | + + + | Chronic anticoagulation | 12/26/2018 | + + + | Hypothyroidism | 12/26/2018 | + + + | Pre-operative cardiovascular examination | 12/26/2018 | + + + | Screening for iron deficiency anemia | 12/26/2018 | + + + | Lumbar spine scoliosis | 11/19/2018 | + + + | Other spondylosis with radiculopathy, lumbar region | 11/19/2018 | + + + | Coronary artery disease involving [place] heart without angina | 01/02/2018 | | pectoris | | + + + | Morbid obesity | 08/08/2017 | + + + | Lumbar spondylosis | 07/30/2017 | + + + | Lumbar facet arthropathy | 04/13/2017 | + + + | Lumbar foraminal stenosis | 04/13/2017 | + + + | Lumbar degenerative disc disease | 04/13/2017 | + + + | Lumbar radicular pain | 04/13/2017 | + + + | High cholesterol | 10/27/2016 | + + + + + | Overview: Last Assessment & Plan: | | History of statin intolerance, recetly started on Zetia | | Plan | | Check fasting panel | | Continue Zetia | + + + + + | Type 2 diabetes mellitus with stage 3 chronic kidney disease, | 10/27/2016 | | without long-term current use of insulin | | + + + + + | Overview: Last Assessment & Plan: | | Type 2 DM managed by diet and Metformin, generally FBS ~ 100-110 | | Plan | | Holding metformin for Dye marybeth | | Cover with insulin sliding scale | + + + + + | Chronic deep vein thrombosis (DVT) of femoral vein of left lower | 09/20/2016 | | extremity | | + + + | APRIL on CPAP | 09/20/2016 | + + + Encounters +--------+ + + + + | Date | Type | Specialty | Care Team | Description | +--------+ + + + + | 02/03/ | Refill | Cardiology | Bing Terrazas, | Medication Refill | | 2019 | | | MD | | +--------+ + + + + | 01/30/ | Office | Cardiology | Mercedes Berrios | Coronary artery | | 2019 | Visit | | [address] | disease involving | | | | | | [place] coronary | | | | | | artery of [place] | | | | | | heart without angina | | | | | | pectoris (Primary | | | | | | Dx); Status post | | | | | | insertion of | | | | | | drug-eluting stent | | | | | | into left anterior | | | | | | descending (LAD) | | | | | | artery; Paroxysmal | | | | | | atrial fibrillation | | | | | | ([facility]); Essential | | | | | | hypertension; | | | | | | Dyslipidemia; Statin | | | | | | intolerance; | | | | | | Recurrent deep vein | | | | | | thrombosis (DVT) | | | | | | ([facility]); Chronic | | | | | | anticoagulation; | | | | | | Hypothyroidism, | | | | | | unspecified type; | | | | | | Type 2 diabetes | | | | | | mellitus with stage | | | | | | 3 chronic kidney | | | | | | disease, without | | | | | | long-term current | | | | | | use of insulin | | | | | | (HCC); Pre-operative | | | | | | cardiovascular | | | | | | examination; | | | | | | Screening for iron | | | | | | deficiency anemia | +--------+ + + + + | 01/24/ | Telephone | Oncology | Mahin Marks, | Other | | 2019 | | | MD | | +--------+ + + + + | 12/26/ | Office | Cardiology | Mercedes Berrios | Coronary artery | | 2018 | Visit | | [address] | disease involving | | | | | | [place] coronary | | | | | | artery of [place] | | | | | | heart without angina | | | | | | pectoris (Primary | | | | | | Dx); Status post | | | | | | insertion of | | | | | | drug-eluting stent | | | | | | into left anterior | | | | | | descending (LAD) | | | | | | artery; Paroxysmal | | | | | | atrial fibrillation | | | | | | (HCC); Essential | | | | | | hypertension; | | | | | | Dyslipidemia; Statin | | | | | | intolerance; | | | | | | Recurrent deep vein | | | | | | thrombosis (DVT) | | | | | | ([facility]); Chronic | | | | | | anticoagulation; | | | | | | Hypothyroidism, | | | | | | unspecified type; | | | | | | Type 2 diabetes | | | | | | mellitus with stage | | | | | | 3 chronic kidney | | | | | | disease, without | | | | | | long-term current | | | | | | use of insulin | | | | | | ([facility]); Pre-operative | | | | | | cardiovascular | | | | | | examination; | | | | | | Screening for iron | | | | | | deficiency anemia; | | | | | | Murmur | +--------+ + + + + | 12/25/ | Office | Physical Medicine | Shemar Gillis, | Lumbar radiculopathy | | 2019 | Visit | and Rehabilitation | PA-C | (Primary Dx) | +--------+ + + + + | 11/14/ | Telephone | Physical Medicine | Shemar Gillis, | Other (Lab codes) | | 2019 | | and Rehabilitation | PA-C | | +--------+ + + + + from Last 3 Months Family History + + +------+ + | Medical History | Relation | Name | Comments | + + +------+ + | Lung cancer | Brother | | | + + +------+ + | Bleeding problems | Father | | Blood Clots | + + +------+ + | Heart disease | Father | | | + + +------+ + | No known problems | Maternal | | | | | Grandfath | | | | | er | | | + + +------+ + | No known problems | Maternal | | | | | Grandmoth | | | | | er | | | + + +------+ + | Arthritis | Mother | | | + + +------+ + | Cancer | Mother | | | + + +------+ + | Diabetes | Mother | | | + + +------+ + | Heart disease | Mother | | | + + +------+ + | Hypertension | Mother | | | + + +------+ + | High blood pressure | Other | | | + + +------+ + | Cancer | Paternal | | | | | Grandfath | | | | | er | | | + + +------+ + | No known problems | Paternal | | | | | Grandmoth | | | | | er | | | + + +------+ + | Bleeding problems | Paternal | | Blood Clots | | | Uncle | | | + + +------+ + | Lung cancer | Sister | | | + + +------+ + + +------+ + + | Relation | Name | Status | Comments | + +------+ + + | Brother | | | | + +------+ + + | Father | | | Heart disease, hypertension | | | | (Age | | | | | 73) | | + +------+ + + | Maternal Grandfather | | | | + +------+ + + | Maternal Grandmother | | | | + +------+ + + | Mother | | | Heart hypertension, diabetes, skin ca | | | | (Age | | | | | 88) | | + +------+ + + | Other | | | | + +------+ + + | Paternal Grandfather | | | | + +------+ + + | Paternal Grandmother | | | | + +------+ + + | Paternal Uncle | | | | + +------+ + + | Sister | | | Lung Cancer | | | | (Age | | | | | 66) | | + +------+ + + Social History + + + [...] | | + + +---------+ + | Not [...] recent travel history available. | + + Last Filed Vital Signs + + + + | Vital Sign | Reading | Time Taken | + + + + | Blood Pressure | 116/56 | 01/30/2019 1046 PDT | + + + + | Pulse | 85 | 01/30/20191045 PDT | + + + + | Temperature | 37.3 C (99.1 F) | 10/30/20181444 PDT | + + + + | Respiratory Rate | 18 | 10/30/20181444 PDT | + + + + | Oxygen Saturation | 95% | 01/30/20191045 PDT | + + + + | Inhaled Oxygen | - | - | | Concentration | | | + + + + | Weight | 127.6 kg (281 lb 3.2 | 01/30/20191045 PDT | | | oz) | | + + + + | Height | 175.3 cm (5' 9") | 01/30/20191045 PDT | + + + + | Body Mass Index | 41.53 | 01/30/20191045 PDT | + + + + Plan of Treatment +--------+---------+ + + + | Date | Type | Specialty | Care Team | Description | +--------+---------+ + + + | 02/12/ | Office | Cardiology | Bing Terrazas, | | | 2018 | Visit | | MD Chin A[place] | | | | | | [facility] | | | | | | [address] | | | | | | | | +--------+---------+ + + + + + + + + | Health Maintenance | Due Date | Last Done | Comments | + + + + + | Hepatitis C | | | | | Screening | 6 | | | + + + + + | Diabetic Eye Exam | | | | | | 4 | | | + + + + + | Diabetic Foot Exam | | | | | | 4 | | | + + + + + | Hemoglobin A1c | | | | | Screening | 4 | | | + + + + + | Vaccine: | | | | | Dtap/Tdap/Td (1 - | 5 | | | | Tdap) | | | | + + + + + | AAA Screening | | | | | | 1 | | | + + + + + | Adult Annual | | | | | Wellness Visit | 7 | | | + + + + + | Vaccine: | | 07/12/2016 | | | Pneumococcal 65+ | 8 | | | | Low/Medium Risk (2 | | | | | of 2 - PCV13) | | | | + + + + + | Colorectal Cancer | | 04/16/2008 | | | Screening | 9 | | | | (Colonoscopy) | | | | + + + + + | Vaccine: Zoster | Completed | 05/03/2018, 02/06/2018, | | | | | 06/16/2014 | | + + + + + | Vaccine: Influenza | Completed | 01/20/2019, 01/31/2018, | | | | | 03/14/2017, Additional history | | | | | exists | | + + + + + Procedures + +--------+ + + + | Procedure Name | Priori | Date/Time | Associated Diagnosis | Comments | | | ty | | | | + +--------+ + + + | ECG 12 LEAD | Routin | 12/26/2018 | Coronary artery | Results for this | | | e | 12:41 PDT | disease involving | procedure are in the | | | | | [place] coronary | results section. | | | | | artery of [place] | | | | | | heart without angina | | | | | | pectoris | | | | | | Paroxysmal atrial | | | | | | fibrillation (HCC) | | | | | | Essential | | | | | | hypertension | | + +--------+ + + + from Last 3 Months Results ECG 12 lead (12/26/2018 12:41 PDT) + + + + + + | Component | Value | Ref Range | Performed | Pathologist | | | | | At | Signature | + + + + + + | VENTRICULAR | 69 | BPM | [facility] | | | RATE EKG | | | | | + + + + + + | ATRIAL RATE | 69 | BPM | [facility] | | + + + + + + | P-R | 140 | ms | [facility] | | | INTERVAL | | | | | + + + + + + | QRS | 82 | ms | [facility] | | | DURATION | | | | | + + + + + + | Q-T | 402 | ms | [facility] | | | INTERVAL | | | | | + + + + + + | Q-T | 430 | ms | [facility] | | | INTERVAL | | | | | | (CORRECTED) | | | | | + + + + + + | P WAVE AXIS | 51 | degrees | [facility] | | + + + + + + | QRS AXIS | 36 | degrees | [facility] | | + + + + + + | T AXIS | 43 | degrees | [facility] | | + + + + + + | INTERPRETAT | Please refer to | | [facility] | | | ION TEXT | Providers office visit | | | | | | note for Providers | | | | | | Interpretation.Confirmed | | | | | | by [facility] [place] Read Only, | | | | | | [facility] ([id number]), | | | | | | editor house organ KARLOS SLAUGHTER | | | | | | ([id number]) on 12/30/2018 | | | | | | 1:25:55 PM | | | | + + + [...] | | + +---------+ + + | [facility] | | | | + +---------+ + + from Last 3 Months Insurance + +--------+ +--------+ +---------+--------+ | Payer | Benefi | Subscriber | Effect | Phone | Address | Type | | | t Plan | ID | meghann | | | | | | / | | Dates | | | | | | Group | | | | | | + +--------+ +--------+ +---------+--------+ | MEDICARE | MEDICA | [id number] | | [phone] | | Medica | | | RE | | 011-Pr | 5 | | re | | | PART A | | esent | | | | | | AND B | | | | | | + +--------+ +--------+ +---------+--------+ | MEDICARE | MEDICA | [id number] | | [phone] | | Medica | | | RE | | 011-Pr | 5 | | re | | | PART A | | esent | | | | | | AND B | | | | | | + +--------+ +--------+ +---------+--------+ | [employer] | [place] | [id number] | | [phone] | | Indemn | | | OF | | 018-Pr | 0 | | ity | | | [employer] | | esent | | | | | | MDCR | | | | | | | | SUPPL | | | | | | + +--------+ +--------+ +---------+--------+ | [employer] | [place] | [id number] | | [phone] | | Indemn | | | OF | | 018-Pr | 0 | | ity | | | [employer] | | esent | | | | | | MDCR | | | | | | | | SUPPL | | | | | | + +--------+ +--------+ +---------+--------+ + +--------+ +--------+ + + | Guarantor Name | Accoun | Relation to | Date | Phone | Billing Address | | | t Type | Patient | of | | | | | | | | | | + +--------+ +--------+ + + | Antonio Azevedo | Person | Self | [birth year] | [address] | | . | al/Fam | | 1945 | [phone] | [place] | | | [place] | | | 0 (Home) | [address] | | | | | | [phone] | | | | | | | 5 (Work) | | + +--------+ +--------+ + + | Antonio Azevedo | Person | Self | [birth year] | [address] | | . | al/Fam | | 1945 | [phone] | [place] | | | [place] | | | 0 (Home) | [address] | | | | | | [phone] | | | | | | | 5 (Work) | | + +--------+ +--------+ + + Advance Directives Patient has advance care planning documents on file. For more information, please contact:[facility] [place] [address]
--- OUTSIDE RECORDS SUMMARY | ~2019-02-10 | XMS | Encounter Summary ---
Demographics + + + | Address | [address] | | | [place] [address] | + + + | Home Phone | | + + + | Preferred Language | Unknown | + + + | Marital Status | | + + + | Taoist Affiliation | NRP | + + + [...] Team Providers + +------+ + | Care Reflow Operator Name | Role | Phone | + +------+ + | Kait Velazquez MD | PCP | | + +------+ + Reason for Visit + + + | Reason | Comments | + + + | Question | | + + + Encounter Details +--------+ + + + + | Date | Type | Department | Care Team | Description | +--------+ + + + + | 11/28/ | Telephone | [facility] | Sanjay Finnegan MD | Question | | 2019 | | Neurosurgery at [address] | [address] | | | | | [address] | [address] | | | | | [address] | [place] [address] | | | | | [place], [place] | [phone] | | | | | [address] | | | | | | [phone] | | | +--------+ + + + [...] Ave | | | | | | [facility] [address] | | | | | | [facility] [place] [address] | | | | | | [phone] | | | | | | | | +--------+---------+ + + + | 02/28/ | Office | Neurological Surgery | Cosme Baker, | | | 2018 | Visit | | [address] | | | | | | [place], [place] | | | | | | [address] | | | | | | | | +--------+---------+ + + + documented as of this encounter Visit Diagnoses Not on filedocumented in this encounter"
--- OUTSIDE RECORDS SUMMARY | ~2019-02-10 | XMS | Encounter Summary ---
Demographics + + + | Address | [address] | | | [place] [address] | + + + | Home Phone | | + + + | Preferred Language | Unknown | + + + | Marital Status | | + + + | Sikh Affiliation | Unknown | + + + | Race | Unknown | + + + | Ethnic Group | Unknown | + + + Author + + + | Author | [facility] | | | and [place] | + + + | Organization | [facility] | | | [...] Team Providers + +------+ + | Care Professor Of Musicology Name | Role | Phone | + [...] + + | 02/03/ | Refill | [facility] | Bing Terrazas, | Medication Refill | | 2019 | | CARDIOLOGY [facility] | [address] | | | | | [address] | [place], [place] | | | | | [place], [place] | [address] | | | | | [address] | | | | | | [phone] | | | +--------+--------+ + + + [...] | | | | | | [place], [place] | | | | | | [address] | | | | | | | | +--------+---------+ + + + documented as of this encounter Visit Diagnoses Not on filedocumented in this encounter"
--- OUTSIDE RECORDS SUMMARY | ~2019-02-10 | XMS | Encounter Summary ---
Demographics + + + | Address | [address] | | | [place] [address] | + + + | Home Phone | | + + + | Preferred Language | Unknown | + + + | Marital Status | | + + + | Roman Catholic Affiliation | Unknown | + + + [...] Team Providers + +------+ + | Care Social Media Marketing Specialist Name | Role | Phone | [...] + + | 01/30/ | Office | [facility] | Mercedes Berrios | Coronary artery | | 2019 | Visit | CARDIOLOGY [place] | [address] | disease involving | | | | [address] | [address] | [place] coronary | | | | [address] | [place] [address] | artery of [place] | | | | [place] | [phone] | heart without angina | | | | [address] | | pectoris (Primary | | | | [phone] | | Dx); Status post | | [...] + | Blood Pressure | 116/56 | 01/30/20191045 PDT | + + + [...] 01/30/20191045 PDT | + + + + documented in this encounter Patient Instructions Patient Instructions Mercedes Berrios FNP - 01/30/2019 11:00 PDTYour Echo was very nor mal, and I consider you a low cardiac risk of surgery Your labs overall looked good, but LDL over 100 , and sugars higher, so work and on diet an d exercise Stop Benadryl, as to 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 Terrazas next, but see me if needed documented in this encounter Progress Notes Mercedes Berrios FNP - 01/30/2019 1100 PDTFormatting of this note might be different f rom the original. Date of visit: 01/31/2019 Primary Care Physician: Kait Velazquez MD CHIEF COMPLAINT: Chief Complaint Patient presents with Follow-up, Office Visit Echo , pre-op CV risk assessment HISTORY OF PRESENT ILLNESS: Mr. Catracho Azevedo is a 74 year old man who is here today to for preoperative cardiac r isk evaluation for planned back surgery In [place] , and to follow up on his [...] CPAP use, history of recurrent DVT and filament tester lyle back pain due to degenerative lumbar [...] Finnegan, who he previously sa w in [place], but is now at [facility] in [facility], which is [facility] with [facility]. He reports he will be getting [...] He quit smoking in 1990 with a 01-amjp-rmox history but denies any ongoing pulmonary diseas [...] shoulder reyes rgery, bilateral knee replacement in 2014 and 16, nerve ablation for back pain [...] recreational or illicit drug use. Lives in [place] . to [place]. Since June 2018 Outpatient [...] results found for: TOTEPI CARDIAC PROCEDURES/IMAGING Last angiogram:10/27/2016:[facility]. Left main with no significant disease. LAD [...] QRS leads III, aVL, aVF, previous inferior HI. Rate 90 bpm, HI 126 ms, QRS 86 ms, QTC 420 ms, tracing personally reviewed by me EK02/06/2018: Normal sinus rhythm, low voltage QRS to limb leads, V1. Rate 70 bpm, HI 1 34 ms, QRS 78 ms, QTC 412 ms, old inferior HI, tracing personally reviewed by me EK12/26/2018: Normal sinus rhythm, persistent low voltage QRS to inferior leads consisten t with previous inferior HI, low voltage QRS to limb leads V1, V2. Rate 69 bpm, HI 140 ms, QRS 82 ms, QTC 430 [...] risk evaluation for planned back surgery at [facility] in [place], [place] by Dr. Yam He has problems as detailed below. His [...] echo performed on January 07, 2019 at [facility] was a normal echo with an [...] normal testing. 1. Coronary artery disease involving [place] coronary artery of [place] heart without angina pectoris 2. Status post insertion of drug-eluting stent into left anterior descending (LAD) artery 3. Paroxysmal atrial fibrillation (HCC) 4. Essential hypertension 5. Dyslipidemia 6. Statin intolerance 7. Recurrent deep vein thrombosis (DVT) (HCC) 8. Chronic anticoagulation 9. Hypothyroidism, unspecified type [...] procedure reports and d manish, medication bottles brought to visit today Allergies, current medications.labs Family history, past medical history, past social history, past surgical history. Problem list. [facility] Cardiology 01/31/2019 document ed in this encounter Plan of Treatment +--------+---------+ + + + | Date | Type | Specialty | Care Team | Description | +--------+---------+ + + + | 02/12/ | Office | Cardiology | Bing Terrazas, | | | 2018 | Visit | | MD Chin AUG[place] | | | | | | [place] | | | | | | [address] | | | | | | | | +--------+---------+ + + + documented as of this encounter Visit Diagnoses + + | Diagnosis | + + | Coronary artery disease involving [place] coronary artery of [place] heart without | | angina pectoris - [...]
--- OUTSIDE RECORDS SUMMARY | ~2019-02-10 | XMS | Clinical Summary ---
Demographics + + + | Address | [address] | | | [place] [address] | + + + | Home Phone | | + + + | Preferred Language | Unknown | + + + | Marital Status | | + + + | Caodaism Affiliation | Unknown | + + + | Race | Unknown | + + + | Ethnic Group | Unknown | + + + Author + + + | Author | [facility] (Historical as of | | | 11-30-18) | + + + | Organization | [facility] (Historical as of | | | 11-30-18) [...] Team Providers + +------+ + | Care Field Project Manager Name | Role | Phone | [...] + + | Coronary artery disease involving [place] coronary artery of | 10/28/2016 | | [place] heart without angina pectoris | | + [...] + + | 02/12/ | Office | | Bing Terrazas, | | | 2019 | Visit | | MD Chin Knutson | | | | | | Dr [address], | | | | | | [place] [address] | | | | | | [phone] | | | | | | | [...] + +--------+ +------+-------+ + | [employer] [place] | MUTUAL | [id number] | | | | | | [place] | | | | | | | [place] | | | | | + +--------+ +------+-------+ + | MEDICARE | MEDICA | [id number] | | | [address] | | | RE | | | | [place] [address] | | | IP-OP | | | [...] | Self | [birth year] Home: | [address] | | | al/[place] | | 1945 | [phone] [place] | | | fernanda | | | [address] | [phone] | + +--------+ +--------+ + +
--- OUTSIDE RECORDS SUMMARY | ~2019-02-10 | XMS | Encounter Summary ---
Demographics + + + | Address | [address] | | | [place] [address] | + + + | Home Phone | | + + + | Preferred Language | Unknown | + + + | Marital Status | | + + + | Muslim Affiliation | NRP | + + + [...] Providers + +------+ + | Care Metal Casting Trades Worker Name | Role | Phone | [...] Av | | | | [facility] [place], [place] | | | | | [place] [address] | [address] | | | | | [phone] | | | +--------+ + + + [...] Ave | | | | | | [address] | | | | | | [place] [address] | | | | | | [phone] | | | | | | | | +--------+---------+ + + + | 02/28/ | Office | Neurological Surgery | Cosme Baker, | | | 2018 | Visit | | [facility] [address] | | | | | | [place], [place] | | | | | | [address] | | | | | | | | +--------+---------+ + + + documented as of this encounter Visit Diagnoses Not on filedocumented in this encounter"
--- OUTSIDE RECORDS SUMMARY | ~2019-02-10 | XMS | Encounter Summary ---
Demographics + + + | Address | [address] | | | [place] [address] | + + + | Home Phone | | + + + | Preferred Language | Unknown | + + + | Marital Status | | + + + | Jain Affiliation | NRP | + + + [...] Team Providers + +------+ + | Care Meat Products Demonstrator Name | Role | Phone | + [...] + + + + | 02/03/ | Anesthesia | [facility] | Ivis Williamson, | | | 2018 | Event | OP LOC [address] | [address] | | | | | Ave [place], [place] | [place] [address] | | | | | [address] | [phone] | | +--------+ + + + + Anesthesia Record + + + + + | Procedure Name | Responsible | Anesthesia Start | Anesthesia Stop Time | | | Anesthesiologist | Time | | + + + + + | EXTREME LATERAL | Ivis Ambriz MD | 02/03/19 1123 | 02/03/19 1643 | | INTERBODY FUSION | | | | | L4-5/TRANSFORAMINAL | | | | | INTERBODY FUSION | | | | | L5-S1/POSTERIOR | | | | | L4-S1 FUSION (N/A | | | | | Neck) | | | | + + + + + +----+---+ + + | Da | T | Event | Comment | | te | i | | | | | m | | | | | e | | | +----+---+ + + | 10 | 1 | Abx | | | /2 | 0 | Administere | | | 1/ | 3 | d | | | 20 | 0 | | | | 19 | | | | +----+---+ + + | | 1 | Eq Check | Anesthesia machine checked Equipment verified | | | 0 | | | | | 4 | | | | | 4 | | | +----+---+ + + | | 1 | Pt. Check | Prior to anesthesia start, pt. Identified, examined, chart | | | 0 | | reviewed, PARQ held, anesthetic plan made or approved by | | | 4 | | attending anesthesiologist. NPO status confirmed as appropriate | | | 6 | | for procedure Preoperative evaluation: unchanged | +----+---+ + + | | 1 | Ready | | | | 0 | | | | | 4 | | | | | 6 | | | +----+---+ + + | | 1 | An Start | | | | 0 | Data | | | | 4 | | | | | 6 | | | +----+---+ + + | | 1 | An Start | | | | 1 | | | | | 2 | | | | | 3 | | | +----+---+ + + | | 1 | an michale now | | | | 1 | | | | | 2 | | | | | 6 | | | +----+---+ + + | | 1 | Vitals | Monitors applied Vital signs checked Patient ready for anesthesia | | | 1 | Checked | | | | 3 | | | | | 2 | | | +----+---+ + + | | 1 | ETT | | | | 1 | | | | | 3 | | | | | 7 | | | +----+---+ + + | | 1 | an michael now | | | | 1 | | | | | 4 | | | | | 8 | | | +----+---+ + + | | 1 | Quick Note | Right lateral position | | | 1 | | | | | 4 | | | | | 8 | | | +----+---+ + + | | 1 | Incision | | | | 2 | | | | | 0 | | | | | 5 | | | +----+---+ + + | | 1 | an michael now | | | | 3 | | | | | 0 | | | | | 3 | | | +----+---+ + + | | 1 | Quick Note | Placed in prone position. Pressure points checked. Left UE with | | | 3 | | limited mobility - placed in neutral position with padding. | | | 0 | | Pulse Ox placed on Left finger for perfusion | | | 3 | | | +----+---+ + + | | 1 | Quick Note | TLIF incision | | | 3 | | | | | 2 | | | | | 7 | | | +----+---+ + + | | 1 | Quick Note | No urine in montano despite fluid bolus. Unable to check montano | | | 3 | | placement | | | 3 | | | | | 0 | | | +----+---+ + + | | 1 | Quick Note | Reinserting montano | | | 6 | | | | | 3 | | | | | 3 | | | +----+---+ + + | | 1 | An Extubate | Neuromuscular function Intact. Pharynx suctioned. Patient obeys | | | 6 | | commands. Adequate pulmonary mechanics. 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 Procedure: 1. Minimally invasive L4-S1 | | | 4 | | fusion using anterior and posterior approaches 2. Posterolateral | | | 3 | | and posterior interbody arthrodesis L5-S1 3. Posterolateral | | | | | lumbar arthrodesis L4-5 4. Anterior lumbar interbody arthrodesis | | | | | L4-5 5. PEEK interbody spacer L4-5 and L5-S1 6. Posterior | | | | | spinal instrumentation L4-S1 using Precept 7. L5 and partial S1 | | | | | laminectomy, L5-S1 facetectomy, L5 and S1 foraminotomy for | | | | | decompression of L5 and S1 nerves 8. Microsurgical technique | | | | | with use of operating microscope 9. Allograft for arthrodesis. | +----+---+ + + | | 1 | PACU Rpt | | | | 6 | Given | | | | 4 | | | | | 3 | | | +----+---+ + + | | 1 | Post-Op | | | | 8 | Page | | | | 3 | | | | | 0 | | | +----+---+ + + +------+ | Meds | +------+ + + + | Name | Total | + + + | midazolam IV 1 mg/mL | 2 mg | + + + | fentaNYL inj | 250 mcg | + + + | ondansetron inj | 8 mg | + + + | propofol IV | 170 mg | + + + | rocuronium IV | 50 mg | + + + | succinylcholine IV | 200 mg | + + + | HYDROmorphone 1mg/mL | 1 mg | + + + | PHENYLEPHrine 100mcg/mL | 450 mcg | + + + | propofol (DIPRIVAN) 200 mg | 1,957,777.5 mcg | + + + | remifentanil (ULTIVA) INF 1 mg | 1,860.36 mcg | + + + | PHENYLEPHrine | 377.1 mcg | + + + | tranexamic acid (CYCLOKAPRON) IV | 1,000 mg | | (minibag+) 1,000 mg | | + + + | vancomycin 1g | 2 g | + + + | lactated ringers IV | 2,300 mL | + + + + + | Name | + + | O2 FR Avance (Total Liters) | + + | N2O FR Avance (l/min) | + + | Air FR Avance (l/min) | + + | Insp Sevo | + + | Et Sevo | + + | EtN2O % | + + | Insp N2O % | + + + + | No blood administrations on file. | + + +--------+ + + + | Type | Details | Placement | Removal | +--------+ + + + | Incisi | 02/03/19; Dr. Isidro; Left; Lateral; | 02/03/19 0000 by | | | on | flank | Moses Alexandra RN | | +--------+ + + + | Drain | 02/03/19; dR. ISIDRO; Other | 02/03/19 0000 by | | | | (Comment) (10FR CHANNEL DRAIN); | Moses Alexandra RN | | | | Other (comment); Lateral; (LEFT | | | | | FLANK); 1 | | | +--------+ + + + | Incisi | 02/03/19; 1205; dr isidro; | 02/03/19 1205 by | | | on | Posterior; back | Juanis Blair RN | | +--------+ + + + | Incisi | 02/03/19; 1326; Dr Isidro; Midline, | 02/03/19 1326 by | | | on | Posterior; back | Juanis Blair RN | | +--------+ + + + | Urethr | 02/03/19; moses anders; 2; | 02/03/19 0000 by | 02/04/19 1331 by | | al | Montano; 16 Fr.; 10 mL; 02/04/19; | Moses Alexandra RN | Ambar Nath CNA | | Cathet | 1331; Discharge | | | | er | | | | +--------+ + + + | Periph | 02/03/19; 0839; Carolyn; Right; | 02/03/19 0839 by | 02/04/19 1032 by | | eral | Distal; Wrist; 18 g; No; | Nisa Leon RN | Angela Salazar RN | | IV | Lidocaine; Positive; 02/04/19; | | | | | 1032; Infiltrated | | | +--------+ + + + | ETT | 02/03/19; 1137 (created via | 02/03/19 1137 by | 02/03/19 163 by | | | procedure documentation); 7.5; | Ivis Ambriz MD | Ivis Ambriz MD | | | Oral; Cuffed; 02/03/19; 1635 | | | +--------+ + + + | Drain | 02/03/19; 160; dr liberty Armstrong ( | 02/03/19 160 by | 02/05/192119 by | | | fr channel); Left; Posterior; | Juanis Blair RN | Josee Wilson RN | | | back; 2; 02/05/19; 2119; Removed | | | | | by patient | | | +--------+ + + + documented in this encounter Social [...] | | 2019 | Visit | | [address] | | | | | | [address] | | | | | | [place] [address] | | | | | | [phone] | | | | | | | | +--------+---------+ + + + | 02/28/ | Office | Neurological Surgery | Cosme Baker, | | | 2018 | Visit | | [address] | | | | | | [place], [place] | | | | | | [address] | | | | | | | | +--------+---------+ + + + documented as of this encounter Procedures + +--------+ + + + | Procedure Name | Priori | Date/Time | Associated Diagnosis | Comments | | | ty | | | | + +--------+ + + + | ANE ETT | Routin | 02/03/2019 | | Results for this | | | e | 1:56 PM | | procedure are in the | | | | PDT | | results section. | + +--------+ + + + documented in this encounter Results ETT (02/03/2019 1:56 PM PDT) + + + | Narrative | Performed At | + + + | Ivis Ambriz MD 02/03/2019 1:57 PM AIRWAY MANAGEMENT - | | | ETT Time of Placement: 02/03/2019 11:37 AM Intubation Reason: For | | | surgical procedure Positioning: Supine Location Performed:OR | | | OXYGENATION Patient was preoxygenated No apneic oxygenation Grade: | | | Grade 0 - Ventilation by mask not attempted Manual in-Line | | | Stabilization: No Induction:Rapid sequence, with Cricoid Pressure | | | INTUBATION ATTEMPT 1 Videolaryngoscopy: Glidescope Intubation | | | Adjuncts: w/ Stylet Laryngoscopic View: Grade I Surgical Airway: no | | | Surgical Airway ETT DETAILS ETT Type:Standard, Hi-Lo Cuffed | | | Intubation Type: Oral Cuff Status: Cuffed Size: 7.5 ETT secured | | | with adhesive tape Depth at Lip: 23 cm Airway Leak: Yes 25 cmH2O | | | CONFIRMATION Number of Attempts: 1 Atraumatic placement Positive | | | for EtCO2:Waveform capnography Breath Sounds: Bilateral and equal | | | NARRATIVE Attending was physically present for the critical portions | | | of the procedure as described in the procedure note | | | Attending/Authorizing Provider: Ivis Ambriz MD Performing | | | Provider: Ivis M Christina Huh, MD | | + + + documented in this encounter Visit Diagnoses Not on filedocumented in this encounter Administered Medications + +--------+ +--------+------+------+ | Medication Order | MAR | Action | Dose | Rate | Site | | | Action | Date | | | | + +--------+ +--------+------+------+ | fentaNYL (SUBLIMAZE) injection | Given | 02/04/20 | 50 mcg | | | | intravenous, INTRAPROCEDURE PRN, | | 19 11:34 | | | | | Starting Sun02/03/19 at 1123, | | AM PDT | | | | | Until Sun02/03/19 at 1638 | | | | | | + +--------+ +--------+------+------+ +-------+ +--------+---+---+ | Given | 02/04/20 | 50 mcg | | | | | 19 11:32 | | | | | | AM PDT | | | | +-------+ +--------+---+---+ | Given | 02/04/20 | 50 mcg | | | | | 19 11:26 | | | | | | AM PDT | | | | +-------+ +--------+---+---+ +---+---+ | | | +---+---+ + +-------+ +--------+---+---+ | HYDROmorphone (DILAUDID) | Given | 02/04/20 | 0.2 mg | | | | injection intravenous, | | 19 4:32 | | | | | INTRAPROCEDURE PRN, Starting Mon | | PM PDT | | | | | 02/03/19 at 1621, Until Mon | | | | | | | 02/03/19 at 1638 | | | | | | + +-------+ +--------+---+---+ +-------+ +--------+---+---+ | Given | 02/04/20 | 0.2 mg | | | | | 19 4:30 | | | | | | PM PDT | | | | +-------+ +--------+---+---+ | Given | 10/21/20 | 0.2 mg | | | | | 19 4:27 | | | | | | PM [...] | +---+---+ + +-------+ +------+---+---+ | midazolam (PF) (VERSED) | Given | 02/04/20 | 2 mg | | | | injection intravenous, | | 19 11:23 | | | | | INTRAPROCEDURE PRN, Starting Mon | | AM PDT | | | | | 02/03/19 at 1123, Until Mon | | | | | | | 02/03/19 at 1638 | | | | | | + +-------+ +------+---+---+ +---+---+ | | | +---+---+ + +-------+ +------+---+---+ | ondansetron (ZOFRAN) injection | Given | 02/04/20 | 4 mg | | | | intravenous, INTRAPROCEDURE PRN, | | 19 4:15 | | | | | Starting 02/03/19 at 1123, | | PM PDT | | | | | Until 02/03/19 at 1638 | | | | | | + +-------+ +------+---+---+ +-------+ +------+---+---+ | Given | 02/04/20 | 4 mg | | | | | 19 11:23 | | | | | | AM PDT | | | | +-------+ +------+---+---+ +---+---+ | | | +---+---+ + +-------+ +---------+---+---+ | PHENYLEPHrine 100 mcg/mL IV | Given | 02/04/20 | 100 mcg | | | | syringe intravenous, | | 19 12:40 | | | | | INTRAPROCEDURE PRN, Starting Mon | | PM PDT | | | | | 02/03/19 at 1138, Until Mon | | | | | | | 02/03/19 at 1638 | | | | | | + +-------+ +---------+---+---+ +-------+ +---------+---+---+ | Given | 02/04/20 | 100 mcg | | | | | 19 12:33 | | | | | | PM PDT | | | | +-------+ +---------+---+---+ | Given | 02/04/20 | 50 mcg | | | | | 19 12:31 | | | | | | PM PDT | | | | +-------+ +---------+---+---+ +---+---+ | | | +---+---+ + +---------+ + +--------+---+ | PHENYLEPHrine INTRAPROCEDURE | New Bag | 02/04/20 | 0.5 | 38.09 | | | CONTINUOUS PRN, Starting Mon | | 19 12:51 | mcg/kg/m | mL/hr | | | 02/03/19 at 1251, Until Mon | | PM PDT | in | | | | 02/03/19 at 1638 | | | | | | + +---------+ + +--------+---+ +---+---+ | | | +---+---+ + + + + +---+---+ | propofol (DIPRIVAN) 200 mg | Rate/Dos | 02/04/20 | 50 | | | | intravenous, INTRAPROCEDURE | e Change | 19 1:45 | mcg/kg/m | | | | CONTINUOUS PRN, Starting Mon | | PM PDT | in | | | | 02/03/19 at 1200, Until Mon | | | | | | | 02/03/19 at 1638 | | | | | | + + + + +---+---+ +---------+ + +---+---+ | New Bag | 02/04/20 | 75 | | | | | 19 12:00 | mcg/kg/m | | | | | PM PDT | in | | | +---------+ + +---+---+ +---+---+ | | | +---+---+ + +-------+ +-------+---+---+ | propofol (DIPRIVAN) injection | Given | 02/04/20 | 50 mg | | | | intravenous, INTRAPROCEDURE PRN, | | 19 12:27 | | | | | Starting Sun02/03/19 at 1136, | | PM PDT | | | | | Until Sun02/03/19 at 1638 | | | | | | + +-------+ +-------+---+---+ +-------+ +--------+---+---+ | Given | 02/04/20 | 120 mg | | | | | 19 11:36 | | | | | | AM PDT | | | | +-------+ +--------+---+---+ +---+---+ | | | +---+---+ + + + + +---+---+ | remifentanil (ULTIVA) INF 1 mg | Rate/Dos | 02/04/20 | 0.03 | | | | INTRAPROCEDURE CONTINUOUS PRN, | e Change | 19 2:35 | mcg/kg/m | | | | Starting 02/03/19 at 1215, | | PM PDT | in | | | | Until Sun02/03/19 at 1638 | | | | | | + + + + +---+---+ + + + +---+---+ | Rate/Dose Change | 02/04/20 | 0.05 | | | | | 19 1:45 | mcg/kg/m | | | | | PM PDT | in | | | + + + +---+---+ | Rate/Dose Change | 02/04/20 | 0.07 | | | | | 19 1:34 | mcg/kg/m | | | | | PM PDT | in | | | + + + +---+---+ +---+---+ | | | +---+---+ + +-------+ +-------+---+---+ | Rocuronium injection syrg | Given | 02/04/20 | 40 mg | | | | intravenous, INTRAPROCEDURE PRN, | | 19 1:00 | | | | | Starting Sun02/03/19 at 1136, | | PM PDT | | | | | Until Sun02/03/19 at 1638 | | | | | | + +-------+ +-------+---+---+ +-------+ +-------+---+---+ | Given | 02/04/20 | 10 mg | | | | | 19 11:36 | | | | | | AM PDT | | | | +-------+ +-------+---+---+ +---+---+ | | | +---+---+ + +-------+ +--------+---+---+ | succinylcholine (PF) (ANECTINE) | Given | 02/04/20 | 200 mg | | | | injection intravenous, | | 19 11:36 | | | | | INTRAPROCEDURE PRN, Starting Mon | | AM PDT | | | | | 02/03/19 at 1136, Until Mon | | | | | | | 02/03/19 at 1638 | | | | | | + +-------+ +--------+---+---+ +---+---+ | | | +---+---+ + +---------+ + +---+---+ | tranexamic acid (CYCLOKAPRON) | New Bag | 02/04/20 | 1,000 mg | | | | IV (minibag+) 1,000 mg 1,000 mg, | | 19 1:20 | | | | | intravenous, ONCE, 1 dose, Mon | | PM PDT | | | | | 02/03/19 at 1245 | | | | | | + +---------+ + +---+---+ +---+---+ | | | +---+---+ + +-------+ +-----+---+---+ | vancomycin (VANCOCIN) injection | Given | 02/04/20 | 2 g | | | | intravenous, INTRAPROCEDURE | | 19 10:30 | | | | | PRN, Starting 02/03/19 at | | AM PDT | | | | | 1030, Until Sun02/03/19 at 1638 | | | | | | + +-------+ +-----+---+---+ +---+---+ | | | +---+---+ documented in this encounter"
--- OUTSIDE RECORDS SUMMARY | ~2019-02-10 | XMS | Encounter Summary ---
Demographics + + + | Address | [address] | | | [place] [address] | + + + | Home Phone | | + + + | Preferred Language | Unknown | + + + | Marital Status | | + + + | Hoahaoism Affiliation | NRP | + + + [...] Team Providers + +------+ + | Care Artist Agent Name | Role | Phone | + +------+ + | Kait Velazquez MD | PCP | | + +------+ + Encounter Details +--------+ + + + + | Date | Type | Department | Care Team | Description | +--------+ + + + + | 02/03/ | Procedure | [facility] | | | | 2018 | Pass | OP LOC [address] [place] [address] | | | | | | [place], [place] | | | | | | [address] | | | +--------+ + + + [...] | 2018 | Visit | | [address] | | | | | | [address] | | | | | | [place] [address] | | | | | | [phone] | | | | | | | | +--------+---------+ + + + | 02/28/ | Office | Neurological Surgery | Cosme Baker, | | | 2018 | Visit | | [facility] [address] | | | | | | [place] | | | | | | [address] | | | | | | | | +--------+---------+ + + + documented as of this encounter Visit Diagnoses Not on filedocumented in this encounter"
--- OUTSIDE RECORDS SUMMARY | ~2019-02-10 | XMS | Encounter Summary ---
Demographics + + + | Address | [address] | | | [place] [address] | + + + | Home Phone | | + + + | Preferred Language | Unknown | + + + | Marital Status | | + + + | Synagogue Affiliation | Unknown | + + + | Race | Unknown | + + + | Ethnic Group | Unknown | + + + Author + + + | Author | [facility] | | | and [place] | + + + | Organization | [facility] | | [...] Providers + +------+ + | Care Sports Complex Attendant Name | Role | Phone | + [...] | Required | | | artery | COUNTY MANAGER [address] | | | | | disease | [address] | [place], [place] | | | | | involving | [place] | [address] | | | | | [place] | [place], [place] | Phone: | | | | | coronary | [address] | [phone] | | | | | artery of | Phone: | Fax: | | | | | [place] heart | [phone] | [phone] | | | | | without | Fax: | | | | | | angina | [phone] | | | | | | pectoris [...] + + | 12/26/ | Office | [facility] | Mercedes Berrios | Coronary artery | | 2019 | Visit | [facility] [place] | [address] | disease involving | | | | [address] | [address] | [place] coronary | | | | [address] | [place] [address] | artery of [place] | | | | [place] | [phone] | heart without angina | | | | [address] | | pectoris (Primary | | | | [phone] | | Dx); Status post | | [...] | | | | | | ([facility]); Chronic | | | | | | [...] | | | | | | ([facility]); Pre-operative | | | | | | [...] | Blood Pressure | 130/62 | 12/26/2018 1231 PDT | + + + + | Pulse | 69 | 12/26/2018 1231 PDT | + + + + | Temperature | - | - | + + + + | Respiratory Rate | - | - | + + + + | Oxygen Saturation | 95% | 12/26/20181230 PDT | + + + + | Inhaled Oxygen | - | - | | Concentration | | | + + + + | Weight | 125.5 kg (276 lb 9.6 | 12/26/20181230 PDT | | | oz) | | + + + + | Height | 175.3 cm (5' 9") | 12/26/20181230 PDT | + + + + | Body Mass Index | 40.85 | 12/26/2018 1231 PDT | + + + + documented in this encounter Patient Instructions Patient Instructions Mercedes Berrios FNP - 12/26/2018 12:30 PDTI have ordered you fas ting labs to be done at [facility], in next week . I also ordered you an Echo to be done at [place] I made no changes to medications See me back in 4 weeks documented in this encounter Progress Notes Mercedes Berrios FNP - 12/26/2018 1230 PDTFormatting of this note might be different f rom the original. Date of visit: 12/26/2018 Primary Care Physician: Kait Velazquez MD CHIEF COMPLAINT: Chief Complaint Patient presents with Follow-up HISTORY OF PRESENT ILLNESS: Mr. Catracho Azevedo is a 73 year old man who is here today to for preoperative cardiac risk evaluation for planned back surgery In [place] . He is accompanied today by his [...] Dr. Finnegan, he is to be in [place], and [facility] which [facility]. He reports he will be [...] He quit smoking in 1990 with a 67-cyaw-pzet history but denies any ongoing pulmonary diseas [...] recreational or illicit drug use. Lives in [place] . to [place]. Outpatient Medications Prior to [...] results found for: TOTEPI CARDIAC PROCEDURES/IMAGING Last angiogram:10/27/2016:[facility]. Left main with no significant disease. [...] QRS leads III, aVL, aVF, previous inferior FL. Rate 90 bpm, VT 126 ms, QRS 86 ms, QTC 420 ms, tracing personally reviewed by me EK02/06/2018: Normal sinus rhythm, low voltage QRS to limb leads, V1. Rate 70 bpm, VT 1 34 ms, QRS 78 ms, QTC 412 ms, old inferior FL, tracing personally reviewed by me EK12/26/2018: Normal sinus rhythm, persistent low voltage QRS to inferior leads consisten t with previous inferior FL, low voltage QRS to limb leads V1, V2. Rate 69 bpm, VT 140 ms, QRS 82 ms, QTC 430 [...] dispense report. 1. Coronary artery disease involving [place] coronary artery of [place] heart without angina pectoris 2. Status post insertion of drug-eluting stent into left anterior descending (LAD) artery 3. Paroxysmal atrial fibrillation (HCC) 4. Essential hypertension 5. Dyslipidemia 6. Statin intolerance 7. Recurrent deep vein thrombosis (DVT) ([facility]) 8. Chronic anticoagulation 9. Hypothyroidism, unspecified type 10. Type 2 diabetes mellitus with stage 3 chronic kidney disease, without long-term current use of insulin ([facility]) 11. Pre-operative cardiovascular examination 12. Screening for [...] surgical history. Problem list. Shreyas CHAMPAGNE [facility] Cardiology 12/26/2018 documente d in this encounter Plan of Treatment +--------+---------+ + + + | Date | Type | Specialty | Care Team | Description | +--------+---------+ + + + | 02/12/ | Office | Cardiology | Bing Terrazas, | | | 2018 | Visit | | MD Chin [address] | | | | | | [place] | | | | | | [address] | | | | | | | | +--------+---------+ + + + + +--------+ + + | Name | Priori | Associated Diagnoses | Order Schedule | | | ty | | | + +--------+ + + | Comprehensive Metabolic Panel | Routin | Essential | Expected: | | | e | hypertension | 12/26/2018, Expires: | | | | Dyslipidemia Type 2 | 12/27/2019 | | | | diabetes mellitus | | | | | with stage 3 chronic | | | | | kidney disease, | | | | | without long-term | | | | | current use of | | | | | insulin (HCC) | | + +--------+ + + | Lipid Panel | Routin | Dyslipidemia | Expected: | | | e | | 12/26/2018, Expires: | | | | | 12/27/2019 | + +--------+ + + | CBC with Differential | Routin | Chronic | Expected: | | | e | anticoagulation | 12/26/2018, Expires: | | | | Screening for iron | 12/27/2019 | | | | deficiency anemia | | + +--------+ + + | TSH, Reflex Free T4 | Routin | Hypothyroidism, | Expected: | | | e | unspecified type | 12/26/2018, Expires: | | | | | 12/27/2019 | + +--------+ + + | ECHO Complete | Routin | Coronary artery | Expected: | | | e | disease involving | 12/26/2018, Expires: | | | | [place] coronary | 12/27/2019 | | | | artery of [place] | | | | | heart without angina | | | | | pectoris Status | | | | | post insertion of | | | | | drug-eluting stent | | | | | into left anterior | | | | | descending (LAD) | | | | | artery Paroxysmal | | | | | atrial fibrillation | | | | | (HCC) Chronic | | | | | anticoagulation | | | | | Pre-operative | | | | | cardiovascular | | | | | examination Murmur | | + +--------+ + + documented as of [...] in the | | | | | [place] coronary | results section. | | | | | artery of [place] | | | | | | heart without angina | | | | | | pectoris | | | | | | Paroxysmal atrial | | | | | | fibrillation (HCC) | | | | | | Essential | | | | | | hypertension | | + +--------+ + + + documented in this encounter Results ECG 12 lead (12/26/2018 12:41 PDT) [...] | | | | | by [employer] Read Only, | | | | | | [employer] ([id number]), | | | | | | international editorial producer KARLOS SLAUGHTER | | | | | [...] + + | Coronary artery disease involving [place] coronary artery of [place] heart without | | angina pectoris - [...]
--- OUTSIDE RECORDS SUMMARY | ~2019-02-10 | XMS | Encounter Summary ---
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 He is scheduled for an XLIF L4-5/TLIF L5-S1 with L4-S1 stock replenisher ior fusion on 02/03/2019. He presented to [...] mid-LAD (2017). Asymptomatic. Seen at cardiology office ([place]) last month for preop eval without issues. [...] 2017. Had hematology cons ultation with Dr. Mahin Marks ([place], [place]) on 10/30/18 for periop erative anticoagulation [...] 5 C8 (Wrist Ext) 5 5 C8 (Dredge Pump Operator) 5 5 T1 (Pinky Abd) 5 5 [...] drawn in December at [facility] in [place], [place]. Not available for review at present. MRSA/MSSA Nasal culture: In process Lab Results Component Value Date A1C 6.6 (H) 01/23/2019 Diagnostic Results: EK02/06/2018: Normal sinus rhythm, low voltage QRS to limb leads, V1. Rate 70 bpm, OH 13 4 ms, QRS 78 ms, QTC 412 ms, old inferior MD, tracing personally reviewed by me EK12/26/2018: Normal sinus rhythm, persistent low voltage QRS to inferior leads consisten t with previous inferior MD, low voltage QRS to limb leads V1, V2. Rate 69 bpm, OH 140 ms, Q RS 82 ms, QTC [...] MEDIA TAB 1 ) Cosme Baker PA-C [facility] Neurosurgery [phone] signed by Cosme Baker PA-C at 01/30/2019 [...] | 2018 | Visit | | [address] [facility] [address] | | | | | | [place] [address] | | | | | | [place] [address] | | | | | | [phone] | | | | | | | | +--------+---------+ + + + | 02/28/ | Office | Neurological Surgery | Cosme Baker, | | | 2018 | Visit | | [facility] [address] | | | | | | [place], [place] | | | | | | [address] | | | | | | | [...]
--- OUTSIDE RECORDS SUMMARY | ~2019-02-10 | XMS | Encounter Summary ---
Demographics + + + | Address | [address] | | | [place] [address] | + + + | Home Phone | | + + + | Preferred Language | Unknown | + + + | Marital Status | | + + + | Quaker Affiliation | NRP | + + + [...] Providers + +------+ + | Care Sales Closer Name | Role | Phone | + +------+ + | Kait Velazquez MD | PCP | | + +------+ + Encounter Details +--------+ + + + + | Date | Type | Department | Care Team | Description | +--------+ + + + + | 01/01/ | Telephone | [facility] | Sanjay Finnegan MD | | | 2019 | | Neurosurgery at [address] | [address] | | | | | [address] | [address] | | | | | [address] | [place] [address] | | | | | [place], [place] | [phone] | | | | | [address] | | | | | | [phone] | | | +--------+ + + + [...] Ave | | | | | | [facility] [address] | | | | | | [place] [address] | | | | | | [phone] | | | | | | | | +--------+---------+ + + + | 02/28/ | Office | Neurological Surgery | Cosme Baker, | | | 2018 | Visit | | [facility] [address] | | | | | | [place] | | | | | | [address] | | | | | | | | +--------+---------+ + + + documented as of this encounter Visit Diagnoses Not on filedocumented in this encounter"
--- OUTSIDE RECORDS SUMMARY | ~2019-02-10 | XMS | Encounter Summary ---
Demographics + + + | Address | [address] | | | [place] [address] | + + + | Home Phone | | + + + | Preferred Language | Unknown | + + + | Marital Status | | + + + | Yarsanism Affiliation | NRP | + + + [...] Team Providers + +------+ + | Care Lawyer Name | Role | Phone | + [...] | | foraminal | [address] [facility] | | | | | | stenosis | Ave Room | | | | | | Lumbar | 325 | | | | | | degenerative | [place], | | | | | | disc | [place] [address] | | | | | | disease | Phone: | | | | | | Procedures | [phone] | | | | | | OCCUPATIONAL | Fax: | | | | | | THERAPY | [phone] | | | | | | REFERRAL [...] | | | foraminal | [address] [facility] | | | | | | stenosis | Ave Room | | | | | | Lumbar | 325 | | | | | | degenerative | [facility] | | | | | | disc | [place] [address] | | | | | | disease | Phone: | | | | | | Procedures | [phone] | | | | | | PHYSICAL | Fax: | | | | | | THERAPY | [phone] | | | | | | REFERRAL [...] [address] | | | | | [place] [address] | [address] | | | 02/10/ | | [phone] | [place] [address] | | | 2019 | | | [phone] | | +--------+ + + + + [...] -No forward bending to the floor to strip picker objects -Keep head above the level [...] NOT RESTART THESE MEDICATIONS UNTIL CLEARED BY [facility]. Activity: -Activity instructions: no strenuous exercise, no bending/twisting, lifting restricted to < 1/2 gallon of milk in weight. -No forward bending to the floor to strip picker objects -Keep head above the level [...] appt. Check in on 1st Floor in [address] [place] [address]. Office Address: Dr Sanjay Finnegan [facility] [address] [facility] [address], [address] [place] [address] PPD per policy Facility MD to follow/manage patient "I certify that post-hospital inpatient snf facility care is medically necessar y on a continuing basis for treatment of the same condition for which inpatient acute hospit al care was received." Violet De Leóntronically signed by Cosme Kenny PA-C at 02/10/2019 8:11 AM PD T documented in this encounter Medications at [...] - 02/10/2019 11:27 AM PDTPt discharged to [facility]. Pt left at 1125. Discharged summary [...] for d/c: Discharge to swing bed at [facility] ([phone]). RNC M received message regarding call from Maryann at [facility]. RNCM left voice message request ing call back to discuss discharge planning. Discharge destination: [facility] ([phone]) Transportation (mode/via): [facility] / [facility] Patient Support/Family Contact (name & #): JASMIN AZEVEDO (spouse) : [phone] Potential Barriers to discharge : None Communication: Hospitalist and message left for floor RN. Brigid Suresh RN adiges, Thais Brewster - 02/10/2019 9:03 AM PDT Neurosurgery - [...] Marvin Coburn MD 10 mg at 02/10 08 melatonin tablet 3 mg 3 mg oral [...] Coburn MD 34 g a t 02/07/19 2135 senna-docusate (SENOKOT S) 8.6-50 mg 2 tablet [...] 5 C8 (Wrist Ext) 5 5 C8 (Exterior Designer) 5 5 T1 (Pinky Abd) 5 5 [...] Care Post-Op Abx: -Cipro 400 mg IV [id number] Consults: -Hospitalist service to assess medical issues. [...] Discharge to SNF today. Gladys Motta PA-C [facility] SURG [address] [place] [address] Chloe Del Angel DO - 02/09/2019 8:55 [...] Contact - Anticipated Discharge - Sunday to [facility] Chloe Osei, DO [facility] This note was written using the assistance of [employer] dictation software. I spent more than 25 [...] by RNCM. Document signed and [facility] to be scanned into EMR. Original document given to Patient. 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 [...] given his procedure and duratio n/distance to [facility].Pt will require medication prior to discharge. I saw and performed a physical examination of the patient and discussed the patient's manag ement with Dr Coburn's. I reviewed Dr Coburn note and agree with the documented findings and plan of care. 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 [...] DVT DVT prophylaxis Jamie Deng MD [facility] Department of Neurological Supervisor MillMedical Education Specialist Marvin Coburn MD - 02/07/2019 8:07 PM [...] PRN, Marvin Coburn MD, 3 mg at 02/05/192157 methocarbamol (ROBAXIN) tablet 500 mg, 500 mg, oral, TID PRN, Marvin Coburn MD, 500 mg at 02/07/19 075 metoclopramide [...] lumbar region Essential hypertension Coronary arteriosclerosis in [place] artery Chronic anticoagulation Chronic deep vein thrombosis [...] Post-Op Abx: -Continue Cipro 400 mg IV [id number] Consults: -Hospitalist service to assess medical issues. [...] trial in their office at [facility] t time. No prophylactic abx indicated for Montano. DVT (p): -Screening duplex US ordered -negative -History of DVT; start SQ heparin now that drain is out. Dispo planning: - SNF when ready. -Consult case management. Marvin Coburn MD Neurosurgery, PGY-4 8:12 PM 02/07/2019 [facility] - 1 7:01 PM PDT Hospital [...] possible. Awaiting to hear back fro jaclyn IBARRA regarding this. #Obstructive sleep apnea: Patient using CPAP at bedtime #Hypertension: Currently stable, continue Toprol-XL and lisinopril #Hypothyroidism Continue Synthroid #DVT prophylaxis Heparin for now, awaiting to hear back from NSGY regarding Eliquis Nutrition: Regular diet Code status - Full Emergency Contact - Anticipated Discharge - 1-2 days to SNF Chloe Osei DO Hospital Medicine This note was written using the assistance of [employer] dictation software. I spent more than 35 [...] for SNF rehab have been placed to [facility], [facility] and [facility] Transitional Care unit. All 3 faciliti es has accepted patient. Patient and his would like to go to [facility]. [facility] and Kelly Awad to advise that patient has elected to go to [facility] in [place] which is where he lives. Transportation discussed. Patient and have elected to use [facility] stretcher transpo rt. They are aware that they may be financially respondsive and have made a 50% payment to [facility]. Transport is tentatively scheduled for Sunday @ 9 am. RNCM left message for Mars @ [facility], about their ability to accept patie nt over the weekend. Arranged by: June Bell RN adha Telles RN - 02/07/2019 10:00 AM PDTPt. C/o [...] - 02/06/2019 4:42 PM PDTCase Management Discharge Fl eds PT & OT are recommending SNF rehab. Patient is s/p Minimally invasive L4-S1 fusion using a nterior and posterior approaches. Patient is max assist of 1 or 2 in all Mobiity functions. RNCM met with patient and his . Patient lives in [facility]. They are agreeable to SNF rehab. Provided list of SNF facility in [facility] as requested from Medicare.gov. Referrals sent to [facility], [facility] and [facility] Transitional care unit in [place]. Transport discussed with . Will need to [...] kg/m. Ht: 175 cm LABS Recent Labs 02/03/19 2019 02/06/19 0731 02/06/19 0927 02/06/19 1346 GLU 145* [...] Yue Pagan RD [facility] [address] [place] [address] [place] [address] [email or web address] signed by Yue Pagan RD at 02/06/2019 3:06 PM PDTGiCosme wade PA-C - 02/06/2019 1:49 PM PDTFormatting of [...] DAILY, Smitha Pagan, KAMLA, 1 capsule at 02/06/19 1613 levothyroxine tablet [...] 8 mg, 8 mg, oral, Q8H PRN, Mravin Coburn MD oxyCODONE (immediate release) (ROXICODONE) tablet [...] lumbar region Essential hypertension Coronary arteriosclerosis in [place] artery Chronic anticoagulation Chronic deep vein thrombosis [...] Post-Op Abx: -Continue Cipro 400 mg IV [id number] Consults: -Hospitalist service to assess medical issues. [...] ready. -Consult case management. COSME KENNY PA-C [facility] Neurosurgery [address] [place] [address] Associated attestation - Jamie Deng MD - 02/06/2019 9:08 PM PDTNeurosurgery Attend ing I saw and performed a physical examination of the patient and discussed the patient's manag ement with MAKSIM Kenny. I reviewed MAKSIM Kenny note and agree with the documented findings and yanci n of care. Jamie Deng MD [facility] Department of Neurological Supervisor MillMedical Education Specialist Josee Wilson RN - 02/06/2019 2:00 AM [...] Q6H Marvin Coburn MD 1,000 mg at 02/05/19 0527 amitriptyline (ELAVIL) tablet 75 mg 75 mg [...] DAILY Marvin Coburn MD 10 mg at 02/0550 melatonin tablet 3 mg 3 mg oral [...] PRN Marvin Coburn MD 10 mg at 02/05/19526 polyethylene glycol (MIRALAX) packet 17 g 17 [...] lumbar region Essential hypertension Coronary arteriosclerosis in [place] artery Chronic anticoagulation Chronic deep vein thrombosis [...] ready. -Consult case management. Gladys Motta PA-C [facility] [address] [place] [address] Apolonia Pickard RN - 02/04/2019 1:07 PM [...] provide Equipment Currently used at Home/DME Provider: [facility] Home Health/Infusion Agency: N/A Insurance/Funding: @PAYORNAME@, Assessment: Antonio Azevedo is a 74 y.o. male HD#1 with lumbar DDD, L4-S1 foraminal stenosi s, degenerative scoliosis s/p L4-5 XLIF/L5-S1 TLIF/L4-S1 PIF on 02/03/19. Spoke with patient and Jasmin [phone] at bedside. The plan is to discharge home when he is medically stable. Due to the long drive home, the patient and his will staying in a hotel for a night or two to break up the length of driving. At home there are three steps to get into th e house and he has a walk [...] XLIF, L5-S1 TLIF Afebrile overnight TMax 37.[address] BRIONNA outputs since OR: flank=50, xqma=894 OBJECTIVE: Last 24 hour min/max Temp: 37.7 [...] hours. Chemistry Recent Labs 02/03/19 0747 02/03/19201802/04/19 06 NA -- 139 -- K -- 4.6 [...] sample for T&Sc confirmatory. Lab called . 45 Lab here to draw spec. Call placed into the [place] to report patient's yeast areas, additional order received. 4430 Fluconazole hung. P DTdocumented in this encounter Plan of Treatment +--------+---------+ + + + | Date | Type | Specialty | Care Team | Description | +--------+---------+ + + + | 02/18/ | Office | Urology | Andrew Cloud, | | | 2018 | Visit | | [address] | | | | | | [facility] [address] | | | | | | [place] [address] | | | | | | [phone] | | | | | | | | +--------+---------+ + + + | 02/28/ | Office | Neurological Surgery | Cosme Kenny, | | | 2018 | Visit | | [facility] [address] | | | | | | [place], [place] | | | | | | [facility] [phone] | | | | | | | [...] Note | + -------+ | Service Account, [facility] - 02/06/2019 3:03 PM PDT [...] RADIOLOGY | [address] | [place] [address] | [phone] | | VOICE RECOGNITION | | | [...] RADIOLOGY | [address] | [place] [address] | [phone] | | VOICE RECOGNITION | | | [...] to this test. | | | | [facility] | | | RO LAB | + + + + + + + + | Performing | Address | City/State/Zipcode | Phone Number | | Organization | | | | + + + + + | [facility] | [address] | [place] [address] | | | LAB | | | [...] [facility] | [address] | [place] [address] | | | LAB | | | [...] | | [facility] | | | [place] | | | | | + +---------+ [...] [facility] | [address] | [place] [address] | | | LAB | | | [...] [facility] | [address] | [place] [address] | | | LAB | | | [...] [facility] | [address] | [place] [address] | | | LAB | | | [...] [facility] | [address] | [place] [address] | | | LAB | | | [...] [facility] | [address] | [place] [address] | | | LAB | | | [...] | | [facility] | | | GABONESE | | | | | + +---------+ [...] [facility] | [address] | [place] [address] | | | LAB | | | [...] RADIOLOGY | [address] | [place] [address] | [phone] | | VOICE RECOGNITION | | | [...] RADIOLOGY | [address] | [place] [address] | [phone] | + + + + + CONFIRMATORY [...] BLOOD | [address] | [place] [address] | | | BANK | | | [...] | | | | | modification) on [facility] 02/06/19 at | | | | | [...] g, oral, NEEDED, | | | Starting [facility] 02/06/19 at 2220, | | | Until [...] mL, intravenous, NEEDED, | | | Starting [facility] 02/06/19 at 2220, | | | Until [...] | | | | First dose on [facility] 02/06/19 at | | AM PDT | [...] +---+---+ +---+ | | +---+ + +--------+ + +------+------+ | Medication Order [...] +---+---+ | | | +---+---+ + +---------+ +--------+-------+---+ | ciprofloxacin (CIPRO) IV 400 | New Bag | 02/07/20 | 400 mg | 200 | | | mg in D5W (RTU) 400 mg, | | 19 8:13 | | mL/hr | | | intravenous, EVERY 12 HOURS, 6 | | AM PDT | | | | | doses, First dose on 02/03/19 | | | | | | | [...] | | | | | dose on [facility] 02/06/19 at 0600, | | | | [...] +---+---+ | | | +---+---+ + +-------+ +-------+---+---------+ | enoxaparin (LOVENOX) injection [...] | | | | Starting 02/03/19 at 1626, | | | | | [...] | | | | | 1 dose, 02/03/19 at 0930 | | AM PDT | | | | + +---------+ +--------+---+---+ +---+---+ | | | +---+---+ + +-------+ +--------+---+---------+ | heparin injection 5,000 [...] | | | | intravenous, RECOVERY PRN (DAVID), | | PM PDT | | | | | Starting 02/03/19 at 1626, | | | | | [...] +---+ +---+---+ | | | +---+---+ + +---------+ [...] | | | | Until Sun02/03/19 at 1336 | | | | | [...] | | | | | | dose, 02/04/19 at 0400 | | | | | | + +---------+ + +---+---+ +---+---+ | | | +---+---+ documented in this encounter
--- OUTSIDE RECORDS SUMMARY | ~2019-02-10 | XMS | Encounter Summary ---
Demographics + + + | Address | [address] | | | [place] [address] | + + + | Home Phone | | + + + | Preferred Language | Unknown | + + + | Marital Status | | + + + | Mandaeism Affiliation | NRP | + + + [...] Team Providers + +------+ + | Care Medical Office Technologist Name | Role | Phone | + +------+ + | Kait Velazquez MD | PCP | | + +------+ + Encounter Details +--------+ + + + + | Date | Type | Department | Care Team | Description | +--------+ + + + + | 02/07/ | Telephone | [facility] | [place], | | | 2019 | | Associates [address] | Dhruv Mcmanus MD [address] | | | [address] | [address] | | | | | [place], [place] | [address] [place], [place] | | | | | [address] | [address] | | | | | [phone] | | | +--------+ + + + [...] Ave | | | | | | [facility] [address] | | | | | | [place] [address] | | | | | | [phone] | | | | | | | | +--------+---------+ + + + | 02/28/ | Office | Neurological Surgery | Cosme Baker, | | | 2018 | Visit | | [facility] [address] | | | | | | [place], [place] | | | | | | [address] | | | | | | | | +--------+---------+ + + + documented as of this encounter Visit Diagnoses Not on filedocumented in this encounter"
--- OUTSIDE RECORDS SUMMARY | ~2019-02-10 | XMS | Encounter Summary ---
Demographics + + + | Address | [address] | | | [place] [address] | + + + | Home Phone [...] Team Providers + +------+ + | Care Penology Professor Name | Role | Phone | [...] | | | | Assessment Clinic | [place] [address] | | | | | [address] | | | | | | [facility] [address] | | | | | | [place], [place] | | | | | | [address] | | | | | | [phone] | | | +--------+ + + + [...] 2018 | Visit | | [address] | | | | | | [facility] [address] | | | | | | [place] [address] | | | | | | [phone] | | | | | | | | +--------+---------+ + + + | 02/28/ | Office | Neurological Surgery | Cosme Baker, | | | 2018 | Visit | | [facility] [address] | | | | | | [place], [place] | | | | | | [address] | | | | | | | | +--------+---------+ + + + documented as of this encounter Visit Diagnoses Not on filedocumented in this encounter"
--- OUTSIDE RECORDS SUMMARY | ~2019-02-10 | XMS | Encounter Summary ---
Demographics + + + | Address | [address] | | | [place] [address] | + + + | Home Phone [...] Team Providers + +------+ + | Care Account Development Executive Name | Role | Phone | + +------+ + | Kait Velazquez MD | PCP | | + +------+ + Encounter Details +--------+ + + + + | Date | Type | Department | Care Team | Description | +--------+ + + + + | 11/19/ | Hospital | Diagnostic Imaging | Cosme Baker, | | | 2018 | Encounter | at [facility] | PA-C [address] | | | | | Healthcare [address] | [place], [place] | | | | | [facility] | [id number] | | | | | [place] [address] | | | | | | [phone] | | | +--------+ + + + [...] Ave | | | | | | [facility] [address] | | | | | | [place] [address] | | | | | | [phone] | | | | | | | | +--------+---------+ + + + | 02/28/ | Office | Neurological Surgery | Cosme Baker, | | | 2018 | Visit | | [facility] [address] | | | | | | [place], [place] | | | | | | [address] | | | | | | | [...] RADIOLOGY | [address] | [place] [address] | [phone] | | VOICE RECOGNITION | | | | + + + + + documented in this encounter Visit Diagnoses + + | Diagnosis | + + | Back pain, unspecified back location, unspecified back pain laterality, unspecified | | chronicity | + + documented in this encounter"
--- OUTSIDE RECORDS SUMMARY | ~2019-02-10 | XMS | Encounter Summary ---
Demographics + + + | Address | [address] | | | [place] [address] | + + + | Home Phone | | + + + | Preferred Language | Unknown | + + + | Marital Status | | + + + | Amish Affiliation | NRP | + + + [...] Team Providers + +------+ + | Care Lasting Machine Operator Name | Role | Phone [...] | | [address] | [place] [address] | disease; Obstructive | | | | [address] | [phone] | sleep apnea | | | | [place], [place] | | syndrome; Coronary | | | | [address] | | arteriosclerosis in | | | | [phone] | | tejon artery; | | | | | | [...] MOTRIN, IBUPROFEN, ALEVE), vitamin E, herbal supplements, Derry 3 fish oil 7-10 days before surgery [...] bottle of 4.0% Chlorhexidine Gluconate solution from [employer], or your local drug [...] no liver disease Renal: no renal failure Urology/Line Installer: Within Defined Limits except as noted below [...] no liver disease Renal: no renal failure Urology/Line Installer: Within Defined Limits except as noted below [...] Date ABO B 01/23/2019 RH Negative 01/23/2019 [facility] ([facility]): EK12/26/2018: Normal sinus rhythm, persistent low voltage QRS to inferior leads consistent with previous inferior AR, low voltage QRS to limb leads V 1, V2. Rate 69 bpm, IA 140 ms, QRS 82 ms, QTC 430 ms, tracing personally reviewed by Mercedes MANCINI, and similar morphology to EKG performed in January 2018 [facility] "[facility]. Findings pertinent to this [...] mid-LAD (2017). Asymptomatic. Seen at cardiology office ([place]) last month for preop eval without issues. [...] hematology cons ultation with Dr. Mahin Marks ([place], [place]. [phone]) on 10/14 11/01 for perioperative anticoagulation management. [...] the visit) obtaining and reviewing extensive external [facility] records, counseling the pt regarding [...] to this patient's care. Franklin Cody MD [facility] [address] [place] [address] PREOPER[facility]IVE ASS[facility]IC [address] [place] [phone] Trini Castillo MA - 01/23/2019 10:30 AM [...] Dental Issues: False teeth Trini Campa MA [facility] [address] [place] [phone] documented in this en counter Plan of Treatment +--------+---------+ + + + | Date | Type | Specialty | Care Team | Description | +--------+---------+ + + + | 02/18/ | Office | Urology | Andrew Cloud, | | | 2018 | Visit | | [address] | | | | | | [address] | | | | | | [place] [address] | | | | | | [phone] | | | | | | | | +--------+---------+ + + + | 02/28/ | Office | Neurological Surgery | Cosme Baker, | | | 2018 | Visit | | [facility] [address] | | | | | | [place], [place] | | | | | | [address] | | | | | | | [...] BLOOD | [address] | [place] [address] | | | BANK | | | [...] BLOOD | [address] | [place] [address] | | | BANK | | | [...] [facility] | [address] | [place] [address] | | | LAB | | | [...] on | RO LAB | | the [place] [employer]'s Standards of Medical Care in | | | Diabetes - 2012. | | + + + + + + + + | Performing | Address | City/State/Zipcode | Phone Number | | Organization | | | | + + + + + | [facility] | [address] | [place] [address] | | | LAB | | | [...] | + + | Coronary arteriosclerosis in tejon artery Coronary atherosclerosis of tejon | | coronary artery | + + [...]
--- OUTSIDE RECORDS SUMMARY | ~2019-02-10 | XMS | Encounter Summary ---
Demographics + + + | Address | [address] | | | [place] [address] | + + + | Home Phone [...] Team Providers + +------+ + | Care Broomcorn Seeder Name | Role | Phone | + [...] | | | | | | [address] | | | | | | [place] [address] | | | | | | [phone] | | | | | | | | +--------+---------+ + + + | 02/28/ | Office | Neurological Surgery | Cosme Baker, | | | 2019 | Visit | | [address] | | | | | | [place] | | | | | | [address] | | | | | | | | +--------+---------+ + + + documented as of this encounter Visit Diagnoses Not on filedocumented in this encounter"
--- OUTSIDE RECORDS SUMMARY | ~2019-02-10 | XMS | Encounter Summary ---
Demographics + + + | Address | [address] | | | [place] [address] | + + + | Home Phone [...] Team Providers + +------+ + | Care Recenterer Name | Role | Phone | + [...] | | | | | | [address] | | | | | | [place] [address] | | | | | | [phone] | | | | | | | | +--------+---------+ + + + | 02/28/ | Office | Neurological Surgery | Cosme Baker, | | | 2019 | Visit | | [address] | | | | | | [place] | | | | | | [address] | | | | | | | | +--------+---------+ + + + documented as of this encounter Visit Diagnoses Not on filedocumented in this encounter"
--- OUTSIDE RECORDS SUMMARY | ~2019-02-10 | XMS | Encounter Summary ---
Demographics + + + | Address | [address] | | | [place] [address] | + + + | Home Phone [...] Team Providers + +------+ + | Care Land Law Examiner Name | Role | Phone | + [...] | | | | [address] | [place] [address] | | | | | [place], [place] | [phone] | | | | | [address] | | | | | | [phone] | | | +--------+ + + + [...] | | | | | | [address] | | | | | | [place] [address] | | | | | | [phone] | | | | | | | | +--------+---------+ + + + | 02/28/ | Office | Neurological Surgery | Cosme Baker, | | | 2018 | Visit | | [facility] [address] | | | | | | [place], [place] | | | | | | [address] | | | | | | | [...]
--- OUTSIDE RECORDS SUMMARY | ~2019-02-10 | XMS | Clinical Summary ---
Demographics + + + | Address | [address] | | | [place] [address] | + + + | Home Phone | | + + + | Preferred Language | Unknown | + + + | Marital Status | | + + + | Taoism Affiliation | NRP | + + + [...] Team Providers + +------+ + | Care Safety Person Name | Role | Phone | + +------+ + | Kait Velazquez MD | PCP | | + +------+ + Source Comments LINDSAY is fully live on both [facility] Ambulatory and [facility] InPatient.[facility] Allergies + + + + + + [...] + + + | Coronary arteriosclerosis in [place] artery | 10/28/2016 | + + + [...] Sanjay Finnegan MD | | | 2018 - | Encounter | | | | [...] Finnegan MD | | | 2018 | annlorena | | | | +--------+ + + + + | 01/23/ | Anesthesia | Pre-operative | Trini Campa | | | 2019 | Event | Medicine | [place] | | +--------+ + + + + | 01/23/ | Office | Neurological Surgery | Cosme Baker, | Lumbar degenerative | | 2018 | Visit | | PAAmanda | disc disease | | | | [...] in | | | | | | [place] artery; | | | | | | [...] | | | 2018 | | | PA-C | | +--------+ + + + + | 11/28/ | Telephone | Neurological Surgery | Sanjay Finnegan MD | Question | | 2018 | | | | | +--------+ + + + + | 11/19/ | Office | Neurological Surgery | Sanjay Finnegan MD | Lumbar degenerative | | 2018 | Visit | | | disc disease | | | | | | (Primary Dx); Lumbar | | | | | | foraminal stenosis; | | | | | | Other idiopathic | | | | | | scoliosis, lumbar | | | | | | region; Other | | | | | | spondylosis with | | | | | | radiculopathy, | | | | | | lumbar region | +--------+ + + + + | 11/19/ | Hospital | Radiology | Cosme Baker, | | | 2018 | Encounter | | MAKSIM-Cachorro | | +--------+ + + + + | 11/19/ | Travel | | | | | 2018 | | | | | +--------+ + + + + | 11/15/ | Shield Installer | Neurological Surgery | Sanjay Finnegan MD | Back pain, | | 2018 | | | | unspecified back | [...] | 2018 | Visit | | MD [address] | | | | | | [address] | | | | | | [place] [address] | | | | | | [phone] | | | | | | | | +--------+---------+ + + + | 02/28/ | Office | Neurological Surgery | Cosme Baker, | | | 2018 | Visit | | PA-C [address] | | | | | | [place], [place] | | | | | | [address] | | | | | | | [...] / Lot | + +------+-------+ +--------+--------+--------+ | Putty Conor Maxxeus 10cc /Box | | N/A: | COMMUNITY | | 10/13/ | 2017- | | - [id number]: Qty: | | Spine | TISSUE BANK | | 2020 | 0 | | 1 on 02/03/2019 by Sanjay Finnegan | | | | | | /[id number] | | MD Tamar at [facility] Location | | | | | | 1-358 | | | | | | | | /00-33 | | | | | | | | 50 | + +------+-------+ +--------+--------+--------+ | Bone Infuse Kit X Small | | N/A: | | | | | | [id number] - [id number]: | | Spine | | | | | | Qty: 1 on 02/03/2019 by Sivan | | | | | | | | Sanjay Boyle MD at [facility] | | | | | | | | Location | | | | | | | + +------+-------+ +--------+--------+--------+ | Bone Infuse Kit Xx Small | | N/A: | NUVASIVE | | 01/13/ | [id number] | | [id number] - [id number]: | | Spine | | | 2020 | 0 / | | Qty: 1 on 02/03/2019 by Sivan, | | | | | | /[id number] | | Sanjay Boyle MD at [facility] | | | | | | [id number] | | Location | | | | | | | + +------+-------+ +--------+--------+--------+ | Oblique Tlif, Implanted: Qty: | | N/A: | | | | [id number] | | 1 on 02/03/2019 by Sivan, | | Spine | | | | 4 / / | | Sanjay Boyle MD at [facility] | | | | | | | | Location | | | | | | | + +------+-------+ +--------+--------+--------+ | Implant Coroent Xl Wide 15 8 | | N/A: | | | | [id number] | | X 22 X 55mm [id number] - | | Spine | | | | 5 / / | | [id number]: Qty: 1 on | | | | | | | | 02/03/2019 by Sanjay Finnegan | | | | | | | | at [facility] Location | | | | | | | + +------+-------+ +--------+--------+--------+ | Screw Precept Polyaxial 7.5 X | | N/A: | | | | [id number] | | 50mm [id number] - | | Spine | | | | 0A / / | | [id number]: Qty: 4 on | | | | | | | | 02/03/2019 by Sanjay Finnegan, | | | | | | | | MD at [facility] Location | | | | | | | + +------+-------+ +--------+--------+--------+ | Screw Precept Polyaxial 8.5 X | | N/A: | | | | [id number] | | 50mm [id number] - | | Spine | | | | 0A / / | | [id number]: Qty: 2 on | | | | | | | | 02/03/2019 by Sanjay Finnegan, | | | | | | | | MD at [facility] Location | | | | | | | + +------+-------+ +--------+--------+--------+ | Set Screw Precept [id number] | | N/A: | | | | [id number] | | [id number]: Qty: 6 on | | Spine | | | | 0 / / | | 02/03/2019 by Sanjay Finnegan, | | | | | | | | MD at [facility] Location | | | | | | | + +------+-------+ +--------+--------+--------+ | Precept Ti RodImplanted: Qty: | | N/A: | | | | [id number] | | 2 on 02/03/2019 by Sivan, | | Spine | | | | 5 / / | | Sanjay Boyle MD at [facility] Rev | | | | | | [...] | + +--------+ + + + | ESTEFANY HIDALGOICK ONLY | Routin | 02/06/2019 | | [...] Note | + -------+ | Service Account, Polyvore Res In Interface - 02/06/2019 3:03 PM [...] + + | Performing | Address | City/State/[facility] | Phone Number | | Organization | | | | + + + + + | [facility] | [address] | [place] [address] | [phone] | | VOICE RECOGNITION | | | [...] Note | + --------+ | Service Account, Kensho In Interface - 02/06/2019 2:55 PM PDT [...] RADIOLOGY | [address] | [place] [address] | [phone] | | VOICE RECOGNITION | | | [...] [facility] | [address] | [place] [address] | | | LAB | | | [...] | | [facility] | | | [place] | | | | | + +---------+ [...] [facility] | [address] | [place] [address] | | | LAB | | | [...] [facility] | [address] | [place] [address] | | | LAB | | | [...] [address] | [place] [address] | | | LAB | | | [...] [address] | [place] [address] | | | LAB | | | [...] [facility] | [address] | [place] [address] | | | LAB | | | [...] | Positive, specimen sent for culture. | [facility] | | | [facility] | + + + + + + + + | Performing | Address | City/State/Zipcode | Phone Number | | Organization | | | | + + + + + | [facility] | [address] | [place] [address] | | | LAB | | | [...] | | [facility] | | | [place] | | | | | + +---------+ [...] [facility] | [address] | [place] [address] | | | LAB | | | [...] RADIOLOGY | [address] | [place] [address] | [phone] | | VOICE RECOGNITION | | | [...] [address] | [place] [address] | [phone] | + + + + + ETT [...] BLOOD | [address] | [place] [address] | | | BANK | | | [...] [facility] | [address] | [place] [address] | | | LAB | | | [...] BLOOD | [address] | [place] [address] | | | BANK | | | [...] BLOOD | [address] | [place] [address] | | | BANK | | | [...] on | RO LAB | | the [employer]'s Standards of Medical Care in | | | Diabetes - 2012. | | + + + + + + + + | Performing | Address | City/State/Zipcode | Phone Number | | Organization | | | | + + + + + | [facility] | [address] | [place] [address] | | | LAB | | | | + + + + + X-RAY SPINE LUMBOSACRAL 4 VIEWS (11/19/2018 8:29 [...] RADIOLOGY | [address] | [place] [address] | [phone] | | VOICE RECOGNITION | | | [...] MEDICARE | MEDICA | xxxxxxxxxxx | | [phone] | [address] | Medica | | | RE A & | | [address] | 1 | [phone] | re | | | B | | esent | | [place] | | | | | | | | [address] | | + +--------+ +--------+ + +--------+ [...] | B | | esent | | [place], [place] | | | | | | | | [address] | | + +--------+ +--------+ + +--------+ | [employer] [place] | MUTUAL | [id number] | Effect | [phone] | [employer] OF | Indemn | | MEDICARE SUPPL | OF | | meghann | 0 | [place] | ity | | | [place] | | for | | PLAZA | | | | MEDICA | | all | | [place] | | | | RE | | dates | | [phone] | | | | SUPPL | | [...] Person | Self | [birth year] | [address] | | | al/Fam | | 1945 | [phone] | [place] [address] | | | fernanda | | | 0 (Home) | | + +--------+ +--------+ + + | Antonio Azevedo | Person | Self | [birth year] | [address] | | | al/Fam | | 1945 | [phone] | [place] [address] | | | fernanda | | | 0 (Home) | | + +--------+ +--------+ + + Advance Directives + + + + + | Code Status | Date | Date | Comments | | | Activated | Inactivated | | + + + + + | Full Code | 02/04/2019 | | | | | 8:49 AM | | | + + + + + + + + +---+ | | | | | + + + +---+ | Full Code | 02/03/2019 | 02/03/2019 | | | | 7:13 AM | 6:49 PM | | + + + +---+
--- OUTSIDE RECORDS SUMMARY | ~2019-02-10 | XMS | Encounter Summary ---
Demographics + + + | Address | [address] | | | [place] [address] | + + + | Home Phone | | + + + | Preferred Language | Unknown | + + + | Marital Status | | + + + | Orthodoxy Affiliation | Unknown | + + + [...] Team Providers + +------+ + | Care Stone Lathe Operator Name | Role | Phone | [...] | Required | Rehabilitatio | facet | [address] | [address] | | | | n | arthropathy | [address] | [place] | | | | | [place] | [place], | [place] | | | | | stenosis of | [place] | [address] Phone: | | | | | lumbar | [address] | [phone] | | | | | region | Phone: | Fax: | | | | | Lumbar | [phone] | [phone] | | | | | radiculopath | Fax: | | | | | | y | [phone] | | + + + + + + + Encounter Details +--------+---------+ + + + | Date | Type | Department | Care Team | Description | +--------+---------+ + + + | 12/25/ | Office | [facility] | Shemar Gillis, | Lumbar radiculopathy | | 2019 | Visit | PHYSIATRY [address] | PA-C [address] | (Primary Dx) | | | | [place], | [address] [place] | | | | | [place] [address] | [place] [address] | | | | | [phone] | [phone] | | | | | | | [...] | Blood Pressure | 124/60 | 12/25/2018 1333 PDT | + + + + | Pulse | 78 | 12/25/20181332 PDT | + + + + | Temperature | - | - | + + + + | Respiratory Rate | - | - | + + + + | Oxygen Saturation | - | - | + + + + | Inhaled Oxygen | - | - | | Concentration | | | + + + + | Weight | 124 kg (273 lb 5.9 | 12/25/20181332 PDT | | | oz) | | + + + + | Height | 175.3 cm (5' 9") | 12/25/20181332 PDT | + + + + | Body Mass Index | 40.37 | 12/25/2018 1333 PDT | + + + + documented in this encounter Patient Instructions Patient Instructions Shemar Gillis PA-C - 12/25/2018 13:40 PDTFormatting of this note migh t be different from the original. Injections ordered. [...] of the procedure you must provide a electric train driver to take you home. Common Spine [...] disk, and irritate nerves. Date Last Reviewed: 09/14/201719990007-5751 [employer]. [address] [place] [address], [place] [address]. All righ ts reserved. This information is not intended as a substitute for professional medical care. Always follow your healthcare professional's instructions. documented in this encounter Progress Notes Shemar Gillis PA-C - 12/25/2018 1340 PDTFormatting of this note might be different from latrice garcia. Shemar Gillis PA-C [address] [facility], [address] [place] [address] FAX: CHIEF COMPLAINT: Chief Complaint Patient presents with Follow-up Back Pain HISTORY OF PRESENT ILLNESS: Antonio Azevedo Jr. is a 73 y.o. male being seen today in follow-up for complaints of low back pain. The patient has been seen for this complaint in the past. Previously it was recommended that he be seen by neurosurgeon at tertiary [facility] due to other commodities . Patient [...] no apparent deficits with short or manager long term care memory. The cranial nerves appear grossly intact. [...] PT (multiple sessions over the years) and hearing care practitioner. Unfortunately Antonio Azevedo Jr. continues to have significant discomfort. It appears to me that the pain is primarily coming from L4/5 and L5/S1 region I did feel that Antonio [place] Roberto Carlos Haile would be a good candidate for interventional pr ocedures and I offered a LEFT L4/5 and L5/S1 TFESI to be done. I did feel that Antonio [place] Roberto Carlos Haile would be a good candidate for medication: [...] Shemar Gillis PA-C, 12/25/2018 documented in this encou nter Plan of Treatment +--------+---------+ + + + | Date | Type | Specialty | Care Team | Description | +--------+---------+ + + + | 02/12/ | Office | Cardiology | Bing Terrazas, | | | 2018 | Visit | | MD Chin A[facility] | | | | | | [place] | | | | | | [address] | | | | | | | | +--------+---------+ + + + + +--------+ + + | Name | Priori | Associated Diagnoses | Order Schedule | | | ty | | | + +--------+ + + | FL KASSIDY Lumbar Transforaminal | ANGELY | Lumbar | Expected: | | | | radiculopathy | 12/25/2018, Expires: | | | | | 01/12/2019 | + +--------+ + + documented as of this encounter Visit Diagnoses + + | Diagnosis | + + | Lumbar radiculopathy - Primary Thoracic or lumbosacral neuritis or radiculitis, | | unspecified | + + documented in this encounter
--- OUTSIDE RECORDS SUMMARY | ~2019-02-10 | XMS | Encounter Summary ---
Demographics + + + | Address | [address] | | | [place] [address] | + + + | Home Phone | | + + + | Preferred Language | Unknown | + + + | Marital Status | | + + + | Alevism Affiliation | NRP | + + + [...] Team Providers + +------+ + | Care Bolt Machine Operator Name | Role | Phone | + +------+ + PCP | Unavailable | + +------+ + Encounter Details +--------+ + + + + | Date | Type | Department | Care Team | Description | +--------+ + + + + | 11/15/ | Early Childhood Special Educator | [facility] | Sanjay Finnegan MD | Back pain, | | 2019 | | Neurosurgery at [address] | [address] | unspecified back | | | | [address] | [address] | location, | | | | [address] | [place] [address] | unspecified back | | | | [place], [place] | [phone] | pain laterality, | | | | [address] | | unspecified | | | | [phone] | | chronicity (Primary | | | [...] | | | | | | [address] | | | | | | [place] [address] | | | | | | [phone] | | | | | | | | +--------+---------+ + + + | 02/28/ | Office | Neurological Surgery | Cosme Baker, | | | 2018 | Visit | | [facility] [address] [place] [address] Ave | | | | | | [place], [place] | | | | | | [address] | | | | | | | [...] RADIOLOGY | [address] | [place] [address] | [phone] | | VOICE RECOGNITION | | | | + + + + + documented in this encounter Visit Diagnoses + + | Diagnosis | + + | Back pain, unspecified back location, unspecified back pain laterality, unspecified | | chronicity - Primary | + + documented in this encounter"
--- OUTSIDE RECORDS SUMMARY | ~2019-02-10 | XMS | Encounter Summary ---
Demographics + + + | Address | [address] | | | [place] [address] | + + + | Home Phone | | + + + | Preferred Language | Unknown | + + + | Marital Status | | + + + | Episcopalian Affiliation | NRP | + + + [...] Team Providers + +------+ + | Care Preassembler Printed Circuit Board Name | Role | Phone | + +------+ + | Kait Velazquez MD | PCP | | + +------+ + Reason for Referral Consult to [place] (Routine) + +--------+ + + + + | Status | Reason | Specialty | Diagnoses / | Referred By | Referred To | | | | | Procedures | Contact | Contact | + +--------+ + + + + | Authorized | | Neurological | Diagnoses | Sanjay Finnegan | Doug | | | | Surgery | Lumbar | MD [address] | Neurosurgery | | | | | degenerative | [address] | [address] | | | | | disc | [address] | [address] | | | | | disease | [facility] | [facility] [address] | | | | | Lumbar | [place] [address] | [place], [place] | | | | | foraminal | Phone: | [address] | | | | | stenosis | [phone] | Phone: | | | | | Other | | [phone] | | | | | idiopathic | | Fax: | | | | | scoliosis, | | [phone] | | | | | lumbar | [...] | | | | | | | REPAIRER SASH AND DOOR | | | | | | | NH LUMBAR | | | | | | | SPINE FUSN | | | | | | | INCLUDE | | | | | | | LAMINECTOMY | | | | | | | AND OR | | | | | | | DISCECTOMY | | | | | | | NH SPINE | | | | | | | FUSN,POST | | | | | | | TECH,EA | | | | | | | ADDNL SGMT | | | | | | | NH LUMBAR | | | | | | | SPINE | | | | | | | FUSION,ANTER | | | | | | | APPRCH NH | | | | | | | INSERT VERT | | | | | | | FIX | | | | | | | DEV,POST,3-6 | | | | | | | SGMTS NH | | | | | | | LAMINEC/FACE | | | | | | | TECT/FORAMIN | | | | | | | ,LUMBAR NH | | | | | | | LAMINEC/FACE | | | | | | | TECT/FORAMIN | | | | | | | ,EACH ADDNL | | | | | | | NH SPIN | | | | | | | BONE | | | | | | | ALLOGRFT | | | | | | | MORSELIZED | | | | | | | NH SCAN PROC | | | | | | | SPINAL | | | + +--------+ + + [...] | | | | | | [address] | | | | | | | [address] | | | | | | | [place], [place] | | | | | | | [address] | | | | | | | Phone: | | | | | | | [phone] | | | | | | | Fax: | | | | | | | [phone] | + +--------+ + + + + [...] | | | | [address] | [place] [address] | foraminal stenosis; | | | | [place], [place] | [phone] | Other idiopathic | | | | [address] | | scoliosis, lumbar | | | | [phone] | | region; Other | | | [...] 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 Sanjay Finnegan MD [facility] Neurosurgery [facility] [address] [address] NEUROSURGERY HISTORY AND PHYSICAL EXAMINATION CHIEF COMPLAINT: [...] deficits with short or nursing home memory. CRANIAL NERVES: II: Acuity is [...] Intrinsics 5 5 Ulnar Intrinsics 5 5 Retail Store Assistant Strength 5 5 Hip Flexion 5 5 [...] clearance for the operation.. 11/19/2018 11:21 AM Ntaalya Izaguirre MA - 09/2018 9:00 [address] [...] Ave | | | | | | [facility] [address] | | | | | | [place] [address] | | | | | | [phone] | | | | | | | | +--------+---------+ + + + | 02/28/ | Office | Neurological Surgery | Cosme Baker, | | 2018 | Visit | | [facility] [address] | | | | | | [place], [place] | | | | | | [address] | | | | | | | [...]
--- OUTSIDE RECORDS SUMMARY | ~2019-02-10 | XMS | Encounter Summary ---
Demographics + + + | Address | [address] | | | [place] [address] | + + + | Home Phone [...] Team Providers + +------+ + | Care Flatware Maker Name | Role | Phone | [...] [place], | | | | | [address] [place] | [place] [address] | | | | | [place] [address] | [phone] | | | | | [phone] | | | +--------+ + + + [...] [place] | | | | | | [address] | | | | | | | | +--------+---------+ + + + documented as of this encounter Visit Diagnoses Not on filedocumented in this encounter"
--- NOTE | 2019-02-10 15:35 | NUR ---
PT ARRIVED TO FLOOR VIA AMBULANCE FROM [place]. PT WAS UNCOMFORTABLE. PT WAS ABLE TO SELF TRANSFER OFF GURNEY TO BED. VITAL SIGNS TAKEN. ASSESSMENT COMPLETE. PT REQUESTED TO GET IN BED DUE TO PAIN. PT STATES HIS ANKLE IS MOST PAINFUL AT THIS TIME. PT IS TO WEAR BACK LISSETH AT ALL TIMES WHEN OUT OF BED. PT IS ABLE TO DIRECT PLACEMENT OF BRACE, SPOUSE IS ALSO ABLE TO ASSIST IF SHE IS PRESENT. PT HAS A RESTRICTED EXTRIMEITY DUE TO LEFT SHOULDER REPLACEMENT. PT DOES NOT HAVE IGLESIAS CATH. ONLY PERSONAL BELONGINGS AT BEDSIDE ARE PHONE, WATCH. GLASSES, UPPER AND LOWER PARTAL DENTURES, NO HEARING AIDS.
--- NOTE | 2019-02-10 17:56 | NUR ---
PT ASSISTED TO ORDER DINNER. HE REPORTS NEEDING AMUSCLE RELAXER, THIS WAS GIVEN AT 1619 WITH OXYCODONE. PRIMARY RN NOTIFIED OF PT REQUEST. TYLENOL IS AVAILABLE AND WILL BE OFFERED.
--- NOTE | 2019-02-10 18:39 | NUR ---
PATIENT SITTING UP IN BED WATCHING TV. CALL LIGHT IN REACH. NO FURTHER NEEDS AT THIS TIME.
--- NOTE | 2019-02-10 19:21 | NUR ---
SHIFT REPORT REVIEVED FROM YOGI BROOKS. PT RESTING IN BED, WATCHING TV. PAIN 5/10 IN LEFT LEG. DENIES BACK PAIN. ICE PACK AND WARM PACK ON LEFT LEG. PT REPOSITIONED. NO NEES AT THIS TIME. CALL LIGHT IN REACH.
--- NOTE | 2019-02-10 20:17 | NUR ---
PT CALLS TO USE BR. BACK BRACE ON, SBA, FWW TO BR AND CHAIR. PT SITTING IN CHAIR. ICE PACKS PROVIDED TO LOWER BACK. ICE WATER PROVIDED. CALL LIGHT IN REACH. NO OTHER NEEDS AT THIS TIME.
--- NOTE | 2019-02-10 20:35 | NUR ---
PT CALLS TO MOVE TO BED. BACK BRACE ON, SBA, FWW. BANDAGE CHANGED ON RIGHT BACK INCISION DUE TO BUNCHING. NO OTHER NEEDS AT THIS TIME. CALL LIGHT IN REACH.
--- NOTE | 2019-02-10 21:10 | NUR ---
PT HAS 8/10 PAIN IN L KNEE AND CALF. NO REDNESS OR SWELLING NOTED. MD NOTIFIED OF PAIN. PRN ASPERCREME ORDERED AND APPLIED. NO OTHER NEEDS AT THIS TIME. CALL LIGHT. CALL LIGHT IN REACH.
--- NOTE | 2019-02-10 21:10 | NUR ---
PT ASSESSMENT COMPLETED. PT STATES PAIN 5/10. COLD PACKS APPLIED TO LEFT KNEE AND LEFT CALF. PT DECLINES PAIN MEDS AT THIS TIME. NO OTHER NEEDS AT THIS TIME. CALL LIGHT IN REACH.
--- NOTE | 2019-02-11 01:20 | NUR ---
PT RESTING IN BED, EYES CLOSED. RR 16, EVEN, UNLABORED. CALL LIGHT IN REACH.
--- NOTE | 2019-02-11 03:21 | NUR ---
PT CALLS AND STATES HE IS IN 9/10 PAIN IN LOWER BACK. PRN PAIN MED PROVIDED. NO OTHER NEEDS AT THIS TIME. CALL LIGHT IN REACH.
--- NOTE | 2019-02-11 04:41 | NUR ---
PT CALLS STATING PAIN 10/10 IN LEFT KNEE. BACK BRACE ON, UP TO AMBULATE. PT DECLINES SITTING UP IN CHAIR. WARM PACK APPLIED TO KNEE. PT CALMS AFTER GETTING BACK IN BED AND CALLING ON PHONE. PT EDUCATED THAT THE PRN PAIN MED RECENTLY PROVIDED TAKES TIME TO PROVIDE RELIEF. PT RESTING IN BED, TALKING WITH ON PHONE.
--- NOTE | 2019-02-11 06:46 | NUR ---
PT AWAKE IN ROOM. IN ROOM. PRN MED PROVIDED FOR 10/10 PAIN. PT REPOSITIONED. WARM PACK PROVIDED. SCHEDULED MED PROVIDED. CALL LIGHT IN REACH.
--- NOTE | 2019-02-11 07:44 | NUR ---
PT LYING FLAT ON BACK. SO AT BEDSIDE. PT C/O PAIN IN LEFT LEG WHICH HAS BEEN AN ISSUE ALL NOC. RECIEVED REPORT. PT REQUESTS ANALGESIC WHEN ABLE. CALL LIGHT IN REACH.
--- NOTE | 2019-02-11 10:08 | NUR ---
RATING PAIN 5/10 AT THIS TIME. SO ET PT VERBALIZE THEY WOULD LIKE TO SPEAK C PHYSICIAN REGARDING PAIN ET WANTING STEROIDS. DR. ESPARZA NOTIFIED OF PT ET SO REQUEST. STATES HE WILL SEE PT SOMETIME TODAY. SPOUSE REMAINS AT BEDSIDE BR UP X2, CALL LIGHT IN REACH.
--- NOTE | 2019-02-11 10:30 | NUR ---
Met with Ctaracho and his Ana. Cont. with pain in his back and deconditioning from surgery. Goal is to work with PT/OT and dc to home independently with .
[2019-02-11] MEDS ORDERED: AMITRIPTYLINE H50 MG PO (11:59)
[2019-02-11] MEDS ORDERED: OXYCODONE HCL5 MG PO (12:00)
[2019-02-11] MEDS ORDERED: ELIQUIS5 MG PO (12:01)
[2019-02-11] MEDS ORDERED: LISINOPRIL10 MG PO (12:01)
[2019-02-11] MEDS ORDERED: NITROGLYCERIN0.4 MG SL (12:03)
--- NOTE | 2019-02-11 13:03 | NUR ---
MED REC COMPLETE
--- NOTE | 2019-02-11 13:58 | NUR ---
SO ASSISTED PT TO BR. CONTINENT OF URINE. GRIMACES IN PAIN. ASSIST INTO BED. DENIES OTHER NEEDS AT THIS TIME. SO AT BEDSIDE. STATES LUNCH HAS BEEN ORDERED.
--- NOTE | 2019-02-11 15:00 | NUR ---
PT UP AMBULATING IN HALLS WITH PHYSICAL THERAPY.
--- NOTE | 2019-02-11 15:32 | NUR ---
LYING IN BED, C HOB ELEVATED. STATES PAIN IS CURRENTLY 5/[address] IN[address]. SOFIA WILL BE HERE TO SEE HIM IN THE MORNING. STATE XRAY JUST TOOK FILMS. DENIES OTHER NEEDS AT THIS TIME. BR UP X2. CALL LIGHT IN REACH.
--- NOTE | 2019-02-11 17:25 | NUR ---
PT WAS VERY PAINFULL 10/10 THIS AM, HAVE MAINTAINED REGULAR PAIN MEDICATIONS. PT HAS BEEN UP AMBULATING IN HALLS WITH PHYSICAL THERAPY WITH BACK BRACE ON. HE HAS REPORTED IMPROVED PAIN MANAGEMENT THROUGHOUT THE DAY. HE HAS INCREASE SWELLING OF LEFT KNEE,THIS IS ALSO POINT OF MOST PAIN. NOTIFIED X-RAY COMPLETE AND CONSULT ORDER IN AND HAS BEEN NOTIFIED.
--- NOTE | 2019-02-11 19:25 | NUR ---
PT RESTING IN BED, WATCHING TV. PAIN 5/10 IN LEFT CALF. SHIFT REPORT RECIEVED FROM LARS BROOKS. PT REPOSITIONED, EDUCATED CONCERNING MEDICATION SCHEDULE. NO FURTHER NEEDS AT THIS TIME. CALL LIGHT IN REACH.
--- NOTE | 2019-02-11 20:52 | NUR ---
CALL LIGHT ANSWERED. ASSISTED pt TO SIT AT SIDE OF BED TO USE URINAL FOR VOID, CONCENTRATED. pt RATES PAIN 6/10 IN LEFT KNEE. PRN PO PAIN MEDICATION AND TOPICAL MEDICATION APPLIED. CALL LIGHT IN REACH. ICE WATER PROVIDED.
--- NOTE | 2019-02-11 22:12 | NUR ---
PT RESTING IN BED. ASSESSMENT COMPLETED. SLIGHT EDEMA AT LEFT KNEE. PAIN 5/10, ICE PACK PROVIDED, PILLOWS FOR REPOSITIONING, EDUCATION ABOUT PAIN MANAGEMENT. CMS INTACT X4 EXTREMITIES. PT DENIES BACK PAIN AT THIS TIME. SCHEDULED MEDS PROVIDED. NO OTHER NEEDS AT THIS TIME.
--- NOTE | 2019-02-11 23:23 | NUR ---
ACCOMPANIED PATIENT AMBULATED THE HALLWAY X1. PATIENT IS BACK IN BED. TRIED WARM COMPRESS UNDER LEFT KNEE FOR A FEW MINUTES THEN PATIENT WANT IT OFF. REFILLED ICE WATER. PATIENT STILL AWAKE AND READING NEWS PAPER. CALL LIGHT IN REACH.
--- NOTE | 2019-02-12 00:10 | NUR ---
PT CALLS STATING HIS CALF IS IN PAIN 09/23. PT REPOSITIONED, ICE PACK PROVIDED. NO OTHER NEEDS AT THIS TIME. CALL LIGHT IN REACH.
--- NOTE | 2019-02-12 00:52 | NUR ---
PT RESTING IN BED. PAIN 8/10 IN LLE. PRN PAIN MEDS PROVIDED. ICE WATER PROVIDED. NO OTHER NEEDS. CALL LIGHT IN REACH.
--- NOTE | 2019-02-12 01:12 | NUR ---
CALL LIGHT ANSWERED. pt ASSISTED TO SIDE OF BED TO USE URINAL FOR VOID. CONCENTRATED. CALL LIGHT IN REACH. NO ADDITIONAL REQUESTS AT THIS TIME.
--- NOTE | 2019-02-12 03:10 | NUR ---
PT CALLS TO STATE BACK PAIN IS 01/23. MD NOTIFIED BY PHONE. ONE DOSE BENDRYL AND DECDRON ORDERED AND REPEATED BACK. MEDS PROVIDED. ICE PACK PROVIDED, PT REPOSITIONED. NO OTHER NEEDS AT THIS TIME. CALL LIGHT IN REACH.
--- NOTE | 2019-02-12 03:15 | NUR ---
PT CALLS TO STATE BACK PAIN IS 01/23. MD NOTIFIED BY PHONE. NEW ORDERS RECIEVED AND REPEATED BACK. MEDS PROVIDED ORDERED. ICE PACK PROVIDED, PT REPOSITIONED. NO OTHER NEEDS AT THIS TIME. CALL LIGHT IN REACH.
--- NOTE | 2019-02-12 03:54 | NUR ---
CALL LIGHT ANSWERED. pt COMPLAINING OF PAIN IN LEFT LEG. EDUCATED pt AND ON PHARMACOKINETICS OF ADMINISTERED MEDICATIONS. WARM WASH RAGS PROVIDED REQUESTED. pt DENIES AMBULATION AT THIS TIME. NO ADDITIONAL REQUESTS AT THIS TIME. CALL LIGHT IN REACH.
--- NOTE | 2019-02-12 05:07 | NUR ---
PT CALLS TO USE BR. BACK BRACE ON. PAIN 3/10 IN LOWER BACK. PRN PAIN MEDS PROVIDED. NO FURTHER NEEDS. CALL LIGHT IN REACH.
--- NOTE | 2019-02-12 06:00 | NUR ---
PT HAS NOT SLEPT THIS SHIFT. PT PAIN WAS NOT CONTROLLED WITH SCHEDULED AND PRN PAIN MEDS. MD NOTIFIED. NEW ORDERS RECIEVED, MEDS GIVEN. PAIN DOWN TO 3/10 IN LOWER BACK. AT PT SIDE.
--- NOTE | 2019-02-12 06:22 | NUR ---
PT AWAKE IN ROOM. AT BEDSIDE. SCHEDULED MED PROVIDED. NO FURTHER NEEDS. CALL LIGHT IN REACH.
--- NOTE | 2019-02-12 07:26 | NUR ---
BEDSIDE REPORT RECEIVED PT ALERT AND INTERACTIVE AT BEDSIDE. IMMEDIATE NEEDS DENIED
--- NOTE | 2019-02-12 07:45 | NUR ---
PATIENT RESTING IN BED. AND RN IN ROOM. PATIENT'S FACE AND HANDS CLEANED. CALL LIGHT WITHIN REACH. NO OTHER NEEDS AT THIS TIME
--- NOTE | 2019-02-12 09:18 | NUR ---
PATIENT RESTING IN BED. IN ROOM. VITAL SIGNS AND I&O DONE. CALL LIGHT WITHIN REACH. NO OTHER NEEDS AT THIS TIME
--- NOTE | 2019-02-12 09:30 | NUR ---
PT RESTING IN BED IN ROOM. HE DENIES PAIN AT THIS TIME, DISCUSSED PAIN CONTROL AT LENGTH HE VERBALIZES UNDERSTANDING AND AGREES TO CALL FOR NEEDS. PT TOLERATES BREAKFAST WELL, DENIES NEEDS AT THIS TIME. DR SOFIA IN TO SEE HIM
--- NOTE | 2019-02-12 11:20 | NUR ---
Sleeping. Not awakened. Per report, painful night.
--- NOTE | 2019-02-12 12:00 | NUR ---
pt resting in bed, denies pain but agrees to take tylenol in anticipation of p/t. refuses up to the chair or other activities at this time states he will wait for p/t to get him up.
--- NOTE | 2019-02-12 12:49 | NUR ---
PATIENT RESTING IN BED. VITAL SIGNS AND I&O DONE. CALL LIGHT WITHIN REACH. NO OTHER NEEDS AT THIS TIME
--- NOTE | 2019-02-12 14:21 | NUR ---
PT UP TO CHAIR AFTER APPLYING BACK BRACE. REMAINS IN CHAIR AT THIS TIME
--- NOTE | 2019-02-12 15:19 | NUR ---
PT TOLERATES P/T WELL RETURNS TO THERECLINER FOR A TIME. PT TO BED TO REST DENIES WANT OF PAIN MEDICATION STATES HE THINKS IF HE JUST RELAXES FOR AWHILE HE'LL BE FINE. AGREES TO CALL FOR ANY NEED, CALL LIGHT IN HAND
--- NOTE | 2019-02-12 17:43 | NUR ---
PT RESTING IN BED MEAL HAS BEEN SERVED HE DECLINES TO EAT WAITING FOR . DENIES PAIN AGREES OXY 5MG WAS EFFECTIVE FOR HIM. ROBAXIN GIVEN IN ADVANCE OF NEED
--- NOTE | 2019-02-12 18:25 | NUR ---
PATIENT RESTING IN BED. IN ROOM. I&O DONE. CALL LIGHT WITHIN REACH. NO OTHER NEEDS AT THIS TIME
--- NOTE | 2019-02-12 19:40 | NUR ---
pt RESTING IN BED, MASSAGING FEET. RATES PAIN 6/10 IN LEFT LEG. PRN PAIN MEDICATION PROVIDED. ICE PROVIDED REQUESTED. CALL LIGHT IN REACH.
--- NOTE | 2019-02-12 19:45 | NUR ---
SHIFT REPORT RECIEVED FROM JORGE ALBERTO BROOKS. PT RESTING IN BED, AT SIDE. NO NEEDS AT THIS TIME. CALL LIGHT IN REACH.
--- NOTE | 2019-02-12 20:48 | NUR ---
PT RESTING IN BED. SCHEDULED MEDS PROVIDED. PRN PAIN MED PROVIDED FOR 5/10 CALF PAIN. ASSESSMENT COMPLETED. IN ROOM. NO OTHER NEEDS AT THIS TIME. CALL LIGHT IN REACH.
--- NOTE | 2019-02-12 20:48 | NUR ---
ROUNDED CHARGE. PATIENT IS RESTING IN BED. IS PRESENT IN THE ROOM. PATIENT DENIES ANY COMMENTS, QUESTIONS, OR CONCERNS. EAN BROOKS PRESENT IN THE ROOM. CALL LIGHT IN REACH.
--- NOTE | 2019-02-12 22:30 | NUR ---
pt RESTING IN BED WITH EYES CLOSED. HOME CPAP IN PLACE. CALL LIGHT IN REACH.
--- NOTE | 2019-02-12 22:52 | NUR ---
PATIENT WAS AWAKE IS IN THE ROOM , REQUESTED HEAT PACKS FOR HIS LEG,.PATIENT IS 1 PERSON ASSIST. WITH FWW TO BATHROOM. BACK BRACE IS ON WHEN OUT OF BED. AMBULATED PATIENT FROM BED TO BATHROOM BACK TO BED..VITALS DONE FESH WATER GIVEN AND CALL LIGHT IN REACH.
--- NOTE | 2019-02-12 23:30 | NUR ---
PT USED CALL LIGHT TO CALL FOR "HELP". CECILIA COLE AND MYSELF WENT TO CHECK ON PT. HE WAS SITTING AT THE EDGE OF THE BED. WE HELPED HIM BACK TO THE HEAD OF THE BED AND TUCKED HIM IN. BI-PAP ON, BED ALARM SET, CALL LIGHT WITHIN REACH. NOTHING FURTHER NEEDED AT THIS TIME.
--- NOTE | 2019-02-13 00:01 | NUR ---
PT UP TO BR WITH DARA KNOX. PAIN 10/ LLE. PRN PAIN MED PROVIDED. WARM PACK PROVIDED. NO OTHER NEEDS. CALL LIGHT IN REACH.
--- NOTE | 2019-02-13 00:59 | NUR ---
PT CALLS STATING HIS LLE PAIN IS 10/10. PRN PAIN MEDS PROVIDED. NO OTHER NEEDS AT THIS TIME. CALL LIGHT IN REACH.
--- NOTE | 2019-02-13 02:34 | NUR ---
CALL LIGHT ANSWERED. PRN MEDICATION ADMINISTERED. pt C/O 01/23 PAIN IN LEFT CALF/SCHAFER. DENIES WARM OR COLD COMPRESS AT THIS TIME. CALL LIGHT IN REACH. NO ADDITIONAL REQUESTS AT THIS TIME. DENIES TOILETING NEEDS.
--- NOTE | 2019-02-13 03:38 | NUR ---
CALL LIGHT ANSWERED. PT UP TO BR WITH BRACE, FWW, AND SBA TO VOID. BACK TO BED, CASSY WELL. WARM BLANKET PROVIDED PER PT REQUEST. CALL LIGHT WITHIN REACH.
--- NOTE | 2019-02-13 05:13 | NUR ---
PT CALLS T STATE HE HAS 7/10 PAIN IN LLE. PRN PAIN MED AND SCHEDULED MEDS PROVIDED. NO OTHER NEEDS AT THIS TIME. CALL LIGHT IN REACH.
--- NOTE | 2019-02-13 06:43 | NUR ---
PT SLEPT OFF AND ON THIS SHIFT. PAIN MANAGED WITH PRN PAIN MEDS AND WARM PACKS. PT USES BACK BRACE AND FWW WELL. CPAP TOLERATED WELL.
--- NOTE | 2019-02-13 07:49 | NUR ---
PT RESTING IN SEMIFOWLERS POSITION IN BED WATCHIGN TV. RESPIRATIONS EVEN AND UNLABORED. PT DENIES NAUSEA, PAIN OR SOB. CALL LIGHT AND H2O IN REACH. BEDSIDE REPORT RECEIVED FROM [place] RN. PT DENIES NEEDS OR CONCERNS. AT BEDSIDE.
--- NOTE | 2019-02-13 09:05 | NUR ---
PT REPORTS PAIN OF 8/10 TO LLE AND BACK. PRN PO TYLENOL AND PRN PO OXY ADMNISTERED PER PT REQUEST. CALL LIGHT AND H2O IN REACH. FRESH H2O PROVIDED AND NO FURTHER NEEDS OR CONCERNS VOICED.
--- NOTE | 2019-02-13 10:00 | NUR ---
MDT completed. Pt. cont. with nerve pain. Will cont. to work with PT and OT for strengthening and to be able to complete self care. SC will see for support.
--- NOTE | 2019-02-13 12:45 | NUR ---
PATIENT SITTING UP IN CHAIR. PATIENT GOES TO TAKE A SHOWER. PATIENT USES WALKER AND SITS DOWN IN THE SHOWER CHAIR. ONE PERSON ASSISTING. LINENS CHANGED. PATIENT BACKS TO BED. WARM BLANKET PROVIDED. CALL LIGHT WITHIN REACH. NO OTHER NEEDS AT THIS TIME
--- NOTE | 2019-02-13 14:07 | NUR ---
PATIENT SLEEPING. I&O DONE. CALL LIGHT WITHIN REACH. NO OTHER NEEDS AT THIS TIME
--- NOTE | 2019-02-13 14:13 | NUR ---
PT RESTING IN SEMIFOWLERS POSITION IN BED, EYES CLOSED AND RESPIRATIONS EVEN AND UNLABORED. CALL LIGHT AND H2O IN REACH. PT APPEARS TO BE SLEEPING COMFORTABLY. RESPIRATIONS EVEN AND UNLABORED.
--- NOTE | 2019-02-13 14:37 | NUR ---
PT RESTING SUPINE IN BED, USED CALL LIGHT AND PT ASSISTED UP TO BATHROOM WITH 1PA AND FWW WITH USE OF ASPEN BACK BRACE. PT BACK TO BED AND PRN ANALGESICS ADMINISTERED PER PT REQUEST FOR REPORTED 9/10 LOWER BACK PAIN. PT DENIES NAUSEA, SOB OR NUMBNESS/TINGLING TO ARMS OR LEGS. CALL LIGHT AND H2O IN REACH.
--- NOTE | 2019-02-13 15:30 | NUR ---
PT RESTING SUPINE IN BED ALERT AND ORIENTED. CALL LIGHT AND H2O IN REACH. NO NEEDS OR CONCERNS VOICED.
--- NOTE | 2019-02-13 17:47 | NUR ---
PATIENT RESTING IN BED. PATIENT GOES TO USE BATHROOM. PATIENT USES BACK BRACE AND WALKER. PATIENT BACKS TO CHAIR. SETS UP TABLE FOR DINNER. CALL LIGHT WITHIN REACH. NO OTHER NEEDS AT THIS TIME
--- NOTE | 2019-02-13 18:23 | NUR ---
PT RESTING RECLINED IN CHAIR REQUESTED AND RECEIVED SBA WITH FWW BACK TO BED. CALL LIGHT H2O, ICED TEA AND PERSONAL ITEMS IN REACH. PT REPORTS INCREASED PAIN PRN PO ANALGESIC TO BE ADMINISTERED -SEE EMAR.
--- NOTE | 2019-02-13 20:00 | NUR ---
RECEIVED REPORT AT 1900, FOUND PT IN BED. PT HAD NO NEEDS AT THAT TIME.
--- NOTE | 2019-02-13 22:00 | NUR ---
V/S ARE WDL, PAIN IS SOMEWHAT BETTER STATED BY PT BUT HE STILL HAS BILATERAL LOWER LEG PAIN PRESENT. BACK INCISION ON LEFT SIDE STILL HAS SOME SEROUSANG. DRAINAGE PRESENT. THAT SAME INCISION HAS DEHISCED ABOUT 2 MM. RIGHT SIDE BACK INCISION IS WELL APPROXIMATED AND THE LEFT LATERAL INCISION IS WELL APPROXIMATED ALSO. ALL LOBES ARE CLEAR, NO PERIPHERAL EDEMA WAS NOTED. OVERALL STRENGTH +4.
--- NOTE | 2019-02-14 00:43 | NUR ---
AT 2345 5MG OXY WAS GIVEN FOR PAIN 10/23. PT THEN WALKED IN THE HALLWAY A SHORT DISTANCE. WILL CONTINUE TO MONITOR.
--- NOTE | 2019-02-14 01:51 | NUR ---
PT AT THIS TIME IS SITTING ON SIDE OF BED. PAIN IS 4/10. PT HAS NOT BEEN ABLE TO SLEEP SO FAR. PT HAD NO NEEDS AT THIS TIME.
--- NOTE | 2019-02-14 02:38 | NUR ---
PT CALLED AND WANTED ASSISTANCE UP. PUT BRACE ON AND HE DECIDED NOT TO GET UP. HELPED HIM LAY BACK DOWN. HE DENIES FURTHER NEEDS AT THIS TIME. CALL LIGHT IS CLOSE.
--- NOTE | 2019-02-14 03:10 | NUR ---
PT NEEDED SOME ASPER CREAM FOR BILATERAL LEG PAIN. PT REFUSED PRN TYLENOL SINCE IT'S NOT HELPING STATED BY PT.
--- NOTE | 2019-02-14 03:47 | NUR ---
PAIN AT THIS TIME IS 10/10. PRN OXY 5MG AND PRN TYLENOL WERE GIVEN. WILL CONTINUE TO MONITOR. CHANGE OF PRN PAIN MEDICATION MAY BE NEEDED TODAY.
--- NOTE | 2019-02-14 05:28 | NUR ---
PAIN CONTROL WAS A BIG ISSUE THIS SHIFT. ALL PRN PAIN MEDS WERE UTILIZED BUT PT DID NOT GET MUCH PAIN RELIEF. PT FINALLY FELL ASLEEP AROUND 0500. HOT/ICE PACKES WERE APPLIED AND PT ALSO WALKED BUT TO NO AVAIL. LEFT LOWER BACK INCISION HAS A SCANT AMOUNT OF SEROUSANG. DRAINAGE PRESENT. THE TOP TO THAT INCISION HAS DEHISCED ABOUT 2 MM. NO REDNESS/ HEAT OR EDEMA NOTED. THE RIGHT LOWER BACK INCISION IS APPROXIMATED WELL AND SO IS HIS LEFT LATERAL INCISION. OTHERWISE NO NEW ISSUES WERE NOTED SO FAR.
--- NOTE | 2019-02-14 07:25 | NUR ---
Pt reports 10/10 pain to mid lower back. prn po methocarbimal administered -see emar. Call light and h2o in reach. no furhter needs or concerns voiced. pt denies nausea sob numbness or tingling.
--- NOTE | 2019-02-14 07:39 | NUR ---
PT REPORTS 10/10 PERSISTANT PAIN TO LOWER BACK DOWN TO BOTH CALVES. PT STATES "IT FEELS LIKE I'M BEING STABBED IN THE LOWER BACK AND IN THE CALVES AND THAT IT'S SPASMING. IT FEELS JUST LIKE IT DID BEFORE THE SURGERY AND IN THE SAME LOCATIONS. MAYBE JUST A LITTE LOWER IN MY BACK THAN IT WAS BEFORE BUT OTHERWISE IT FEELS THE SAME". PRN PO ANALGESICS ADMINISTERED. PT REPOSISIIONED IN BED AND LIGHTS DIMMED. ICE PACK FOR COMFORT PER PT REQUEST. JOHANNA IN TO SEE PT AND PROVIDES COFFEE PER PT REQUEST. NO FURTHER NEEDS OR CONCERNS VOICED.
--- NOTE | 2019-02-14 08:30 | NUR ---
PT RESTING IN BED, AM ASSESSMENT COMPLETED. AND AM MEDS ADMINISTERED. PT STATES SPASMING HAS SUBSIDED AND THAT PAIN IS NOW TOLERABLE. CALL LIGHT AND H2O IN REACH. NO NEEDS OR CONCERNS VOICED.
--- NOTE | 2019-02-14 09:18 | NUR ---
PATIENT RESTING. VITAL SIGNS DONE BY RN. I&O DONE. PATIENT REFUSED TO ORDER BREAKFAST TODAY, HE ONLY ASKS FOR COFFEE, COFFEE GIVEN. CALL LIGHT WITHIN REACH. NO OTHER NEEDS AT THIS TIME
--- NOTE | 2019-02-14 09:45 | NUR ---
PT RESTING SUPINE IN BED EYES CLOSED AND RESPIRATIONS EVEN AND UNLABORED AT 14. CALL LIGHT AND H2O IN REACH. PT APPEARS TO BE SLEEPING COMFORTABLY.
--- NOTE | 2019-02-14 10:54 | NUR ---
PATIENT UP TO BATHROOM TO VOID, WEARING BACK BRACE PLACED BY SELF AND WALKER. LINENS CHANGED, PATIENT BACK TO BED, ICE PACK AND ICE WATER FILLED.
--- NOTE | 2019-02-14 11:05 | NUR ---
PT RESTING SUPINE IN BED ALERT AND ORIENTED. PT STATES PAIN IS TOLERABLE AND APPEARS TO BE IN NO ACUTE DISTRESS. PT'S PHONE WAS PLUGGED INTO RECONCILIATION MACHINE OPERATOR AND IN REACH ALONG WITH CALL LIGHT AND FRESH H2O PER PT REQUEST. PT DENIES FURTHER NEEDS OR CONCERNS. STATES "I HOPE THERES NO MORE MEDS DUE BECASUE I'M GOING TO TAKE A NAP NOW".
--- NOTE | 2019-02-14 11:24 | NUR ---
PT'S CALLED AND WAS INFORMED THAT PT IS FEELING MUCH BETTER AND THAT HE WOULD LIKE TO GET SOME REST. SHE WAS ALSO INFORMED THAT DR ESPARZA IS STARTING NEW MEDICATION REGIMINE TO HELP MANAGE PT'S PAIN. .
--- NOTE | 2019-02-14 12:08 | NUR ---
PT RESTING SUPINE IN BED ALERT AND ORIENTED TO VOICE. SCHEULED DECADRON PO ADMINISTERED. PT STATES PAIN IS TOLERABLE AND DENIES NEEDS OR CONCERNS. CALL LIGHT AND H2O IN REACH.
--- NOTE | 2019-02-14 13:24 | NUR ---
PATIENT RESTING IN BED. I&O DONE. PATIENT REFUSED TO ORDER LUNCH. RN NOTIFIED. CALL LIGHT WITHIN REACH. NO OTHER NEEDS AT THIS TIME
--- NOTE | 2019-02-14 15:27 | NUR ---
Spoke with Catracho. He states he had a bad night last night. States it maybe as he worries about the pain returning and feels he tenses up at night. States has used a cream for pain in the past which worked well. He will get the name from his , as Dr. Rojas had ordered some time ago.
--- NOTE | 2019-02-14 16:02 | NUR ---
PT RESTING IN SEMIFOWLERS POSITION IN BED ALERT AND ORIENTED. SCHEDUELED 1500 MEDS ADMINSITERED -SEE EMAR. CALL LIGHT AND H2O IN REACH. PT SPEAKING ON CELL PHONE, NO NEEDS OR CONCERNS VOICED.
--- NOTE | 2019-02-14 17:38 | NUR ---
PATIENT USING BATHROOM. PATIENT BACKS TO BED. PATIENT USES WALKER AND BACKS BRACE. ONE PERSON ASSISTING. SETS UP TABLE FOR DINNER. I&O DONE. CALL LIGHT WITHIN REACH. NO OTHER NEEDS AT THIS TIME
--- NOTE | 2019-02-14 20:00 | NUR ---
RECEIVED REPORT AT 1900, FOUND PT IN BED ON THE PHONE. PT HAD NO IMMEDIATE NEEDS AND DENIED PAIN AT THAT TIME.
--- NOTE | 2019-02-14 22:00 | NUR ---
V/S ARE WDL, PAIN IS VERY WELL CONTROLLED SINCE DECADRON WAS STARTED THIS MORNING. LEFT LOWER BACK INCISION WAS COVERED WITH GAUZE AND TAPE. THERE ARE STILL TWO 2MM SPOTS THAT HAVE DEHISCED. SO FAR NO DRAINAGE NOTED. LOBES ARE CLEAR, ABD SOUNDS PRESENT, NO PERIPHERAL EDEMA NOTED AND PT IS NEUROLOGICALLY INTACT. NO NEW CONCERNS NOTED SO FAR.
--- NOTE | 2019-02-14 22:19 | NUR ---
HELPED PT TO THE BATHROOM AND BACK TO BED WITH HIS BACK BRACE AND HIS FWW. BEDSIDE TABLE AND CALL LIGHT IN REACH. HELPED HIM WITH HIS CPAP. ALARM SET, PER HIS .
--- NOTE | 2019-02-15 | NUR ---
PT AT THIS TIME IS SLEEPING. NO NEW CONCERNS NOTED.
--- NOTE | 2019-02-15 01:48 | NUR ---
PT IS STILL SLEEPING, SNORING SOME. PT IS NOT WEARING HOME C-PAP AGREED EARLIER IN THE SHIFT. NO NEW CONCERNS NOTED.
--- NOTE | 2019-02-15 04:00 | NUR ---
PT HAS NOT CAllED ALL SHIFT. PT IS SLEEPING AT THIS TIME.
--- NOTE | 2019-02-15 05:44 | NUR ---
PAIN HAS NOT BEEN AN ISSUE ALL SHIFT SO FAR. NO PRN PAIN MEDICATIONS WERE GIVEN SO FAR. PT SLEPT ALL SHIFT AND STILL IS SLEEPING. PT HAS NOT URINATED THIS SHIFT SO FAR AND STATED THAT HE DID NOT HAVE TO JUST YET. PT DID ALSO NOT DRINK ANY FLUIDS EITHER. V/S WERE WDL AT START OF SHIFT. LEFT LOWER BACK INCISION HAS A DRESSING PRESENT. NO OTHER ISSUES NOTED.
--- NOTE | 2019-02-15 07:23 | NUR ---
PT RESTING SUPINE IN BED ALERT AND ORIENTED. PT DENIES NEEDS OR CONCERNS BEDSIDE REPORT RECEIVED FROM CECILIA JHA. CALL LIGHT AND H2O IN REACH.
--- NOTE | 2019-02-15 08:33 | NUR ---
PT RESTING SUPINE IN BED ALERT AND ORIENTED CALL LIGHT AND H2O IN REACH. ASSESSMENT COMPLETED. PT DENIES NEEDS OR CONCERNS. NO REPORTS OF NAUSEA, PAIN OR SOB.
--- NOTE | 2019-02-15 09:59 | NUR ---
PATIENT RESTING IN BED. IN ROOM. VITAL SIGNS AND I&O DONE. CALL LIGHT WITHIN REACH. NO OTHER NEEDS AT THIS TIME
--- NOTE | 2019-02-15 10:15 | NUR ---
In to answer call light pt assisted to restroom with sba and fww with back brace in place. Pt back to bed and denies further needs or concerns.
--- NOTE | 2019-02-15 11:46 | NUR ---
PATIENT RESTING IN BED. PATIENT GOES TO USE BATHROOM. PATIENT USES WALKER AND BACK BRACE. ONE PERSON ASSISTING. LINENS CHANGED. PATIENT BACKS TO BED. CALL LIGHT WITHIN REACH. ORANGE JUICE GIVEN. NO OTHER NEEDS AT THIS TIME
--- NOTE | 2019-02-15 13:49 | NUR ---
PATIENT RESTING IN BED. PATIENT REFUSED TO ORDER LUNCH. I&O DONE. CALL LIGHT WITHIN REACH. NO OTHER NEEDS AT THIS TIME
--- NOTE | 2019-02-15 13:54 | NUR ---
PT RESTING SUPINE IN BED ALERT AND ORIENTED REPORTS MILD PAIN TO SCHAFER/ LEFT LATERAL ASPECT OF LEFT LOWER EXTREMITY. CALL LIGHT AND H2O IN REACH. PT APPEARS TO BE IN NO ACUTE DISTRESS. CALL LIGHT AND H2O IN REACH.
--- NOTE | 2019-02-15 16:06 | NUR ---
PT RESTING SUPINE IN BED ALERT AND ORIENTED, CALL LIGHT AND H2O IN REACH. PT STATES PAIN IS TOELRABLE. SCHEDULED MEDS ADMINSITERED -SEE EMAR. NO NEEDS OR [id number] VOICED.
--- NOTE | 2019-02-15 17:52 | NUR ---
PATIENT RESTING IN BED. I&O DONE. ICE GIVEN. CALL LIGHT WITHIN REACH. NO OTHER NEEDS AT THIS TIME
--- NOTE | 2019-02-15 20:04 | NUR ---
RECEIVED REPORT FROM DAY SHIFT RN. PATIENT IS RESTING IN BED. IS PRESENT IN THE ROOM. PATIENT IS EATING DINNER. NO NEEDS NOTED. CALL LIGHT IN REACH.
--- NOTE | 2019-02-15 20:10 | NUR ---
PT CALLED REQUESTING ASPERCREME. APPLIED PT PT'S LEFT CALF. FRESH ICE WATER AT BEDSIDE. PT DENIES NEEDS AT THIS TIME. CALL LIGHT IS CLOSE.
--- NOTE | 2019-02-15 21:30 | NUR ---
PATIENT ASSESMENT COMPLETED. PATIENT DENIES ANY PAIN IN HIS BACK. PATIENT COMPLAINS OF A HEADACHE. PATIENT PROVIDED WITH PRN TYLENOL. PATIENTS VITALS TAKEN AND RECORDED BY [employer]. PATIENTS EVENING MEDICATIONS GIVEN PER ORDER. PATIENTS IS PRESENT IN THE ROOM. PATIENT DENIES ANY NEEDS. CALL LIGHT IN REACH.
--- NOTE | 2019-02-15 23:25 | NUR ---
PATIENT IS RESTING IN BED WEARING HOME CPAP, RR 17. CALL LIGHT IN REACH.
--- NOTE | 2019-02-16 01:49 | NUR ---
PATIENT IS RESTING IN BED WITH HOME CPAP ON, RR 18. CALL LIGHT IN REACH.
--- NOTE | 2019-02-16 03:46 | NUR ---
PATIENT IS RESTING IN BED WITH EYES CLOSED. PATIENT IS WEARING HOME CPAP, RR 19. CALL LIGHT IN REACH.
--- NOTE | 2019-02-16 04:47 | NUR ---
PATIENT CALLED AND REQUESTED TYLENOL FOR 5/10 PAIN IN HIS BACK. PATIENT GIVEN PRN TYLENOL. PATIENT DENIES ANY FURTHER NEEDS. CALL LIGHT IN REACH.
--- NOTE | 2019-02-16 05:07 | NUR ---
PATIENT RESTED WELL THROUGHOUT THE SHIFT. PATIENT IS ON A 2G NA LIMIT DIET. PATIENT IS A 1PA W/FWW. PATIENT IS ON SPINAL PRECAUTIONS AND WEARS A BACK BRACE WHEN UP. PATIENT IS LEFT ARM RESTRICTED. PATIENT RECEIVED PRN PAIN MEDICATION X2. PATIENT IS AAOX3 AND USES CALL LIGHT APPROPRIATELY. PATIENT IS ON SWING BED AND WORKING WITH PT/OT.
--- NOTE | 2019-02-16 06:21 | NUR ---
PATIENT IS RESTING IN BED. PATIENTS INTAKE AND OUPUT RECORDED. MORNING MEDICATIONS GIVEN PER ORDER. PATIENT DENIES ANY NEEDS. PATIENT RATES PAIN AT A 2/10. PATIENT DENIES THE NEED FOR PAIN MEDICATIONS AT THIS TIME. CALL LIGHT IN REACH.
--- NOTE | 2019-02-16 07:02 | NUR ---
Pt resting supine in bed eyes closed nad respirations even and unlabored. Call light and H2O in reach. Pt appears to be sleeping comfortably. Report received from CECILIA Chavarria.
--- NOTE | 2019-02-16 09:06 | NUR ---
PT SITTING UP AT SIDE OF BED EATING BREAKFAST. PT ALERT AND ORIENTED REPORTS SOME MILD PAIN TO LOWER BACK AND TO LEFT ANTERIOR/LEFT LATERAL SCHAFER. ASPER CREAM APPLIED TO THIS AREA PER PT REQUEST. AM MEDS ADMINISTERED AND ASSESSMENT COMPLETED. PT DENIES FURTHER NEEDS OR CONCERNS. CALL LIGHT AND H2O IN REACH. BACK BRACE IS ALSO IN PLACE.
--- NOTE | 2019-02-16 09:09 | NUR ---
BROUGHT PATIENT COFFEE, PATIENT SAID HIS LEG AND LOWER BACK WERE HURTING, REPORTED TO THE NURSE
--- NOTE | 2019-02-16 10:19 | NUR ---
PATIENT AMBULATING IN THE HALLWAY WITH PHYSICAL THERAPIST.
--- NOTE | 2019-02-16 10:30 | NUR ---
PATIENT RESTING IN BED. VITAL SIGNS AND I&O DONE. LOW SYSTOLIC BLOOD PRESSURE. RN NOTIFIED. CALL LIGHT WITHIN REACH. NO OTHER NEEDS AT THIS TIME
--- NOTE | 2019-02-16 10:36 | NUR ---
Pt resting supine in bed states "I'm borderline diabetic and when I take steroids sometimes my blood sugar will go real high" pt reqeusted cbg check and bs found to be 117 at this time. philip Nguyen also reported pt had low bp. BP rechecked at this time and found to be WNL. Pt denies further needs or concerns. Call light and h2o in reach.
--- NOTE | 2019-02-16 13:02 | NUR ---
PT RESTING SUPINE IN BED LISTENING TO AUDIO BOOK. PT ALERT AND ORIENTED DENIES PAIN, NAUSEA OR SOB.CALL LIGHT AND FRESH H2O IN REACH. NO FURTHER NEEDS OR CONCERNS VOICED.
--- NOTE | 2019-02-16 16:12 | NUR ---
PT RESTING SUPINE IN BED LISTENING TO AUDIO BOOK. PT ALERT AND ORIENTED DENIES PAIN, NAUSEA OR SOB. PM MEDS AMDINISTERED AND CALL LIGHT/H2O IN REACH. NO NEEDS OR CONCERNS VOICED.
--- NOTE | 2019-02-16 17:40 | NUR ---
PATIENT RESTING IN BED. I&O DONE. ICE GIVEN. CALL LIGHT WITHIN REACH. NO OTHER NEEDS AT THIS TIME
--- NOTE | 2019-02-16 18:50 | NUR ---
Pt reports 5/10 lower back. Pt requested and received prn tylenol. Call light and h2o in reach. Pt denies further needs and returns to listening to audio book.
--- NOTE | 2019-02-16 19:15 | NUR ---
PT RESTING IN BED, LISTENING TO A BOOK. SHIFT REPORT RECIEVED FROM ANA BROOKS. NOO NEEDS AT THIS TIME. CALL LIGHT IN REACH.
--- NOTE | 2019-02-16 21:14 | NUR ---
ROUNDED CHARGE. PATIENT IS RESTING IN BED LISTENING TO A BOOK ON TAPE. PATIENT DENIES ANY NEEDS. CALL LIGHT IN REACH.
--- NOTE | 2019-02-16 21:39 | NUR ---
PT AWAKE IN ROOM, TALKING ON PHONE. ASSESSMENT COMPLETED. PAIN 3/10 IN BACK SCHEDULED MEDS PROVIDED. NO OTHER NEEDS AT THIS TIME. CALL LIGHT IN REACH.
--- NOTE | 2019-02-16 23:37 | NUR ---
PT RESTING IN BED, EYES CLOSED, CPAP ON. RR 18, EVEN, UNLABORED. CALL LIGHT IN REACH.
--- NOTE | 2019-02-17 01:00 | NUR ---
PT RESTING IN BED, EYES CLOSED. RR 18, EVEN, UNLABORED. CPAP ON. CALL LIGHT IN REACH.
--- NOTE | 2019-02-17 02:57 | NUR ---
CALL LIGHT ANSWERED. pt RESTING IN BED. C/O 6/10 PAIN IN "BACK DOWN LEFT LEG". PRN PAIN MEDICATION ADMINSITERED. WARM PACK AND WARM BLANKET PROVIDED. ICE WATER, PERSONAL SUPPLIES, CALL LIGHT IN REACH. NO ADDITIONAL REQUESTS AT THIS TIME. pt INSTRUCTED TO VOID IN URINAL TO MEASURE OUTPUT, VERBALIZES UNDERSTANDING.
--- NOTE | 2019-02-17 05:28 | NUR ---
PT AWAKE IN ROOM. PAIN 6/10 IN LOWER BACK AND LLE. SCHEDULED MED PROVIDED. PRN PAIN MED PROVIDED. NO OTHER NEEDS AT THIS TIME. CALL LIGHT IN REACH.
--- NOTE | 2019-02-17 06:16 | NUR ---
PT SLEPT ON AND OFF THIS SHIFT. PAIN HAS BEEN IN LOWER BACK AND LLE. PAIN MANAGED WITH PRN PAIN MEDS AND TOPICAL PAIN MED. PT USING BACK BRACE AND AMBULATING WITH SBA WELL.
--- NOTE | 2019-02-17 06:17 | NUR ---
I&O'S COLLECTED AND RECORDED. PT BACK TO BED, SPINAL RESTRICTIONS IN PLACE. COFFEE PROVIDED PER PT REQUEST, PRIMARY RN EAN LAKHANI. NO FURTHER NEEDS, CALL LIGHT IN REACH.
--- NOTE | 2019-02-17 08:03 | NUR ---
PATIENT GIVEN WEEKEND AND MORNING NEWSPAPER. PATIENT SITTING UP IN BED, CALL LIGHT IN REACH. NO OTHER NEEDS AT THIS TIME.
--- NOTE | 2019-02-17 08:13 | NUR ---
PATIENT WAS AWAKE SETTING UP N BED, FRESH WATER GIVEN OFFERED WASH COLTH FOR HIS HAND AND FACE, WAITING ON BREAKFAST, CALL LIGHT IN REACH.
--- NOTE | 2019-02-17 11:46 | NUR ---
PT RESTING IN BED, ON PHONE. WILL CHECK BACK LATER.
--- NOTE | 2019-02-17 13:34 | NUR ---
PT CALL LIGHT ON. THIS RN TO BEDSIDE. PT REQUESTS PAIN MEDICATION FOR 6/10 PAIN IN "TOP OF MY HIP" ON LEFT SIDE. SEE MAR FOR MEDICATION GIVEN. PT DENIES ADDITIONAL REQUESTS OR COMPLAINTS AT THIS TIME. CALL LIGHT WITHIN REACH.
--- NOTE | 2019-02-17 15:11 | NUR ---
PATIENT REPORTS HAPPY WITH CARE, ROOM HAS BEEN CLEAN. PATIENT REPORTS ONLY COMPLAINT " I JUST CAN'T SLEEP IN A HOSPITAL". REPORTS GOOD PAIN CONTROL AND PLENTY OF ACTIVITIES TO KEEP HIMSELF BUSY. NO OTHER NEEDS AT THIS TIME.
--- NOTE | 2019-02-17 16:05 | NUR ---
Met with Catracho and Pauline. Catracho would like to dc tomorrow as he has met his dc goals. Pain is controlled.
--- NOTE | 2019-02-17 17:28 | NUR ---
Transitional care letter of discharge given and reviewed with Tom. Aguilera letter completed.
--- NOTE | 2019-02-17 18:54 | NUR ---
PATIENT UP AMBULATING IN HALLS, PAIN CONTROLLED THROUGHOUT DAY. VOIDING WELL, GOOD BOWEL MOVEMENTS. USING BRACE WHEN UP AND COMPLIANT WITH CARE. VS STABLE.
--- NOTE | 2019-02-17 19:38 | NUR ---
PT RESTING IN BED, WATCHING TV. PAIN 10/23, PRN PAIN MED PROVIDED. SHIFT EXCHANGED RECIEVED FROM DANIEL BROOKS. NO OTHER NEEDS AT THIS TIME. CALL LIGHT IN REACH.
--- NOTE | 2019-02-17 20:19 | NUR ---
CALL LIGHT ANSWERED. ICE PACKS PROVIDED REQUESTED. CALL LIGHT IN REACH.
--- NOTE | 2019-02-17 21:27 | NUR ---
PT RESTING IN BED, WATCHING TV. ASSESSMENT COMPLETED. SCHEDULED MEDS PROVIDED. PRN PAIN MEDS PROVIDED FOR BACK AND LLE PAIN 11/23. VS, A&O COMPLETED. NO THER NEEDS. CALL LIGHT IN REACH.
--- NOTE | 2019-02-17 23:32 | NUR ---
ANSWERED BATHROOM LIGHT. 1 PA HELPED PATIENT WIPE. PATIENT VOIDED AND BOWEL MOVEMENT. PATIENT IS BACK IN BED. WARM PACK MADE PER PATIENT'S REQUEST.
--- NOTE | 2019-02-18 00:21 | NUR ---
PT RESTING IN BED, EYES CLOSED. RR 18, EVEN, UNLABORED. CPAP ON. CALL LIGHT IN REACH.
--- NOTE | 2019-02-18 01:59 | NUR ---
PT RESTING IN BED, EYES CLOSED. RR 16, EVEN, UNLABORED. CPAP ON. CALL LIGHT IN REACH.
--- NOTE | 2019-02-18 03:24 | NUR ---
ANSWERED CALL LIGHT. 1 PA TO THE BATHROOM USING WALKER AND BACK TO BED. WARM BLANKET PROVIDED. PATIENT ASKED FOR PAIN MEDICATION. PRIMARY RN NOTIFIED.
--- NOTE | 2019-02-18 03:32 | NUR ---
PT STATES PAIN IN LOWER BACK IN LLE IS 6/10. PRN PAIN MEDS AND HOT PACK PROVIDED. NO OTHER NEEDS AT THIS TIME. CALL LIGHT IN REACH.
--- NOTE | 2019-02-18 04:03 | NUR ---
CALL LIGHT ANSWERED. COFFEE PROVIDED REQUESTED. NO ADDITIONAL REQUESTS.
--- NOTE | 2019-02-18 05:22 | NUR ---
PT SLEPT ON AND OFF THIS SHIFT. PAIN IN LOWER BACK AND LLE MANAGED WELL WITH SHEDULED AND PRN MEDS. PT USES BACK BRACE AND TOLERATES AMBULATION WELL. SPINAL PRECAUTIONS IN PLACE AND WELL TOLERATED. CPAP USED WHILE SLEEPING. VSS. A&O X4.
--- NOTE | 2019-02-18 06:02 | NUR ---
PT AWAKE IN ROOM.SCHEDULED MED PROVIDED. COFFEE PROVIDED. NO OTHER NEEDS AT THIS TIME. CALL LIGHT IN REACH.
--- NOTE | 2019-02-18 07:51 | NUR ---
REPORT RECEIVED FROM PRIVATE DUTY NURSE RN. PT IN BED AWAKE. DENEIS PAIN OR NEEDS. CALL LIGHT IN REACH.
--- NOTE | 2019-02-18 09:05 | NUR ---
PT SITTING IN CHAIR. PT HAS NO COMPLAINTS AT THIS TIME. CALL LIGHT WITHIN REACH.
[2019-02-18] MEDS ORDERED: OXYCODONE HCL5 MG PO (09:42)
[2019-02-18] MEDS ORDERED: GABAPENTIN600 MG PO (09:42)
[2019-02-18] MEDS ORDERED: AMITRIPTYLINE H10 MG PO (09:43)
[2019-02-18] MEDS ORDERED: POLYETHYLENE GL17 GM PO (09:44)
[2019-02-18] MEDS ORDERED: SENNA LAX8.6 MG PO (09:44)
[2019-02-18] MEDS ORDERED: DEXAMETHASONE1 MG PO (09:45)
--- NOTE | 2019-02-18 09:45 | NUR ---
MEDICATIONS GIVEN. ASSESSMENT COMPLETED. DR HAYDEN TO BEDSIDE FOR ROUNDS AND TO DISCUSSED DISCHRAGE PLAN. PT REPORTS 3/10 PAIN. PT UP IN CHAIR WITH COMPUTER. CALL LIGTH IN REACH. ANTHONY FURTHER NEEDS.
[2019-02-18] MEDS ORDERED: FLUTICASONE PRO16 GM NAS (09:46)
--- NOTE | 2019-02-18 11:18 | NUR ---
PT WORKING WITH PHYSICAL THERAPY IN [place]. BACK BRACE IN PLACE.
--- NOTE | 2019-02-18 12:08 | NUR ---
Pt chart faxed to OP therapy for further Pt/OT. Face sheet, H&P, dc summary, pt eval and notes, OT eval and notes.
--- NOTE | 2019-02-18 13:58 | NUR ---
PT SHARED WITH ME ABOUT HIS RIDE HERE [facility] FROM [place]. HE STATED IT TOOK A DAY JUST TO RECOVER FROM THE RIDE. VERY PLEASED WITH SWING BED PROGRAM. GAVE HIM THE ABILITY TO REHAB HERE THAN IN [place]. PT TO BE DC'D TODAY, EXTENDED A BLESSING. WILL FOLLOW NEEDED
--- NOTE | 2019-02-18 14:26 | NUR ---
DISCHARGE ISTRUCTIONS GIVEN TO PT AND . QUESTIONS ANSWERED. NO IV ACCESS. KIT PHYSICAL THERAPIST TO CAR WITH PT TO DO TRANSFER.
== END 2019-02-18 14:15 | disposition home or self-care (01) | DRG 561 ==
LOC: MS 15:20
PROVIDERS: ADMIT Internal Medicine
DX: Z47.89 Encounter for other orthopedic aftercare (principal); Z98.1 Arthrodesis status; M54.32 Sciatica, left side; I25.10 Atherosclerotic heart disease of native coronary artery without angina pectoris; I48.0 Paroxysmal atrial fibrillation; I10 Essential (primary) hypertension; E03.9 Hypothyroidism, unspecified; M54.10 Radiculopathy, site unspecified; F51.04 Psychophysiologic insomnia; G47.33 Obstructive sleep apnea (adult) (pediatric); N40.0 Benign prostatic hyperplasia without lower urinary tract symptoms; Z86.718 Personal history of other venous thrombosis and embolism; Z87.891 Personal history of nicotine dependence; Z79.01 Long term (current) use of anticoagulants; Z95.5 Presence of coronary angioplasty implant and graft; Z79.84 Long term (current) use of oral hypoglycemic drugs; Z79.891 Long term (current) use of opiate analgesic; Z79.899 Other long term (current) drug therapy; Z88.5 Allergy status to narcotic agent; Z88.0 Allergy status to penicillin; Z88.8 Allergy status to other drugs, medicaments and biological substances
CPT/HCPCS: 73562; 94760; 97110; 97116; 97162; 97166; 97530; 97535; J1100; J8540

== ENCOUNTER 2019-02-23 15:35 | Emergency (ER) | payer MEDICARE, OTHER ==
[~2019-02-23] VITALS: Ht 175.3 cm; Wt 119.3 kg
--- OUTSIDE RECORDS SUMMARY | ~2019-02-23 | XMS | Encounter Summary ---
Demographics + + + | Address | [address] | | | [place] [address] | + + + | Home Phone | | + + + | Preferred Language | Unknown | + + + | Marital Status | | + + + | Scientologist Affiliation | Unknown | + + + | Race | Unknown | + + + | Ethnic Group | Unknown | + + + Author + + + | Author | [facility] | | | and [place] | + + + | Organization | [facility] | | | and [place] | + + + | Address | Unknown | + + + | Phone | Unavailable | + + + Support + + +---------+ + | Name | Relationship | Address | Phone | + + +---------+ + | Lara Azevedo | ECON | Unknown | | + + +---------+ + Care Team Providers + +------+ + | Care Air Carrier Inspector Name | Role | Phone | + +------+ + | Paul Boss MD | PCP | | + +------+ + Encounter Details +--------+ + + + + | Date | Type | Department | Care Team | Description | +--------+ + + + + | 02/02/ | [facility] | [facility] | Sanjay Finnegan MD | Back pain, | | 2017 | Encounter | MED CTR XRAY [address] | [address] | unspecified back | | | | [place] | [place] [address] | location, | | | | [place] [address] | [phone] | unspecified back | | | | [phone] | | pain laterality, | | | | | | unspecified | | | | | | chronicity | +--------+ + + + + Social History + + + +--------+ + | Tobacco Use | Types | Packs/Day | Years | Date | | | | | Used | | + + + +--------+ + | Former Smoker | Cigarettes | 1 | 22 | Quit: 04/16/1990 | + + + +--------+ + + +---+---+---+ | Smokeless Tobacco: | | | | | Never Used | | | | + +---+---+---+ + + +---------+ + | Alcohol Use | Drinks/Week | oz/Week | Comments | + + +---------+ + | Yes | | | Rare | + + +---------+ + + + + | Sex Assigned at | Date Recorded | | | | + + + | Not on file | | + + + + + + + | Job Start Date | Occupation | Industry | + + + + | Not on file | Not on file | Not on file | + + + + + + + + | Travel History | Travel Start | Travel End | + + + + + + | No recent travel history available. | + + documented as of this encounter Medications at Time of Discharge + + + +---------+ + + | Medication | Sig | Dispensed | Refills | Start | End Date | | | | | | Date | | + + + +---------+ + + | levothyroxine | Take 50 mcg by mouth | | 0 | | | | (SYNTHROID) 50 mcg | Daily. | | | | | | tablet | | | | | | + + + +---------+ + + | metoprolol | Take 50 mg by mouth | | 0 | | | | succinate | nightly. | | | | | | (TOPROL-XL) 50 mg 24 | | | | | | | hr tablet | | | | | | + + + +---------+ + + | nitroglycerin | Place 0.4 mg under | | 0 | 10/29/19 | | | (NITROSTAT) 0.4 mg | the tongue as | | | 17 | | | SL tablet | needed. | | | | | + + + +---------+ + + | B Complex-C (SUPER | Take 1 tablet by | | 0 | | | | B COMPLEX/VITAMIN C | mouth Daily. | | | | 8 | | PO) | | | | | | + + + +---------+ + + | cholecalciferol | Take 1,000 Units by | | 0 | | | | (VITAMIN D-3) 1,000 | mouth Daily. | | | | 8 | | units capsule | | | | | | + + + +---------+ + + | clopidogrel | Take 75 mg by mouth | | 0 | 10/29/19 | | | (PLAVIX) 75 mg | Daily. | | | 17 | 8 | | tablet | | | | | | + + + +---------+ + + | Desoximetasone | Apply 1 Application | | 0 | | | | 0.05 % GEL | topically 2 times | | | | 9 | | | daily. | | | | | + + + +---------+ + + | ezetimibe (ZETIA) | Take 10 mg by mouth | | 0 | 12/21/19 | | | 10 mg tablet | Daily. | | | 17 | 8 | + + + +---------+ + + | famotidine | Take 1 tablet by | | 1 | 11/21/19 | | | (PEPCID) 40 MG | mouth nightly. | | | 17 | 8 | | tablet | | | | | | + + + +---------+ + + | furosemide (LASIX) | Take 40 mg by mouth | | 0 | | | | 40 mg tablet | Daily. | | | | 8 | + + + +---------+ + + | lisinopril | Take 5 mg by mouth 2 | | 0 | | | | (PRINIVIL, ZESTRIL) | times daily. | | | | 8 | | 5 mg tablet | | | | | | + + + +---------+ + + | metFORMIN | Take 500 mg by mouth | | 0 | | | | (GLUCOPHAGE) 500 mg | Daily. | | | | 8 | | tablet | | | | | | + + + +---------+ + + | | Take 1 tablet by | | 0 | | | | oxyCODONE-acetaminop | mouth 4 times daily | | | | 8 | | hen (PERCOCET) 5-325 | as needed (Taking | | | | | | mg per tablet | 1.5 tablets daily). | | | | | + + + +---------+ + + | warfarin | Take 7.5 mg by mouth | | 0 | | | | (COUMADIN) 5 mg | Daily. | | | | 8 | | tablet | | | | | | + + + +---------+ + + documented as of this encounter Plan of Treatment Not on filedocumented as of this encounter Procedures + +--------+ + + + | Procedure Name | Priori | Date/Time | Associated Diagnosis | Comments | | | ty | | | | + +--------+ + + + | XR LUMBAR SPINE 4 + | Routin | 02/02/2017 | Back pain, | Results for this | | VW | e | 8:32 AM | unspecified back | procedure are in the | | | | PDT | location, | results section. | | | | | unspecified back | | | | | | pain laterality, | | | | | | unspecified | | | | | | chronicity | | + +--------+ + + + documented in this encounter Results XR Lumbar Spine 4 + Vw (02/02/2017 8:32 AM PDT) + + | Specimen | + + | | + + + + + | Narrative | Performed At | + + + | CLINICAL INFORMATION: Back pain. COMPARISON: MRI dated | [facility] | | 12/08/2016. FINDINGS: AP and lateral views of the lumbosacral | | | spine. Number of lumbar-type vertebrae: 5 Alignment: Mild | | | levocurvature. No listhesis. No abnormal translation with flexion | | | or extension. Vertebral bodies: Normal in height. No vertebral | | | fracture. Degeneration: Mild degenerative disc disease at T12-L1, | | | L2-L3, and L3-L4. Moderate degenerative disc disease at L4-L5 and | | | L5-S1. Diffuse facet arthrosis, moderate at L4-L5, and L5-S1. | | | Soft tissues: Unremarkable. IMPRESSION - Mild levocurvature | | | of the lumbar spine. Multilevel degenerative changes, most | | | prominent at L4-L5 and L5-S1 with moderate degenerative disc disease | | | and facet arthrosis. Dictated and Signed by: Quinn Guzman MD | | | Electronically signed: 02/02/2017 9:44 AM | | + + + + + | Procedure Note | + + | Demond, Rad Results In - 02/02/2017 9:47 AM PDT | | CLINICAL INFORMATION: Back pain. | | | | COMPARISON: MRI dated 12/08/2016. | | | | FINDINGS: | | AP and lateral views of the lumbosacral spine. | | | | Number of lumbar-type vertebrae: 5 | | | | Alignment: Mild levocurvature. No listhesis. No abnormal translation with | | flexion or extension. | | | | Vertebral bodies: Normal in height. No vertebral fracture. | | | | Degeneration: Mild degenerative disc disease at T12-L1, L2-L3, and L3-L4. | | Moderate degenerative disc disease at L4-L5 and L5-S1. Diffuse facet arthrosis, | | moderate at L4-L5, and L5-S1. | | | | Soft tissues: Unremarkable. | | | | | | IMPRESSION - | | Mild levocurvature of the lumbar spine. | | | | Multilevel degenerative changes, most prominent at L4-L5 and L5-S1 with moderate | | degenerative disc disease and facet arthrosis. | | | | Dictated and Signed by: Quinn Guzman MD | | Electronically signed: 02/02/2017 9:44 AM | + + + +---------+ + + | Performing | Address | City[facility] | Phone Number | | Organization | | | | + +---------+ + + | [facility] | | | | + +---------+ + + documented in this encounter Visit Diagnoses + + | Diagnosis | + + | Back pain, unspecified back location, unspecified back pain laterality, unspecified | | chronicity | + + documented in this encounter"
--- OUTSIDE RECORDS SUMMARY | ~2019-02-23 | XMS | Encounter Summary ---
Demographics + + + | Address | [address] | | | [place] [address] | + + + | Home Phone | | + + + | Preferred Language | Unknown | + + + | Marital Status | | + + + | Samaritan Affiliation | NRP | + + + | Race | White | + + + | Ethnic Group | Not or | + + + Author + + + | Author | [facility] | + + + | Organization | [facility] | + + + | Address | Unknown | + + + | Phone | Unavailable | + + + Support + + +---------+ + | Name | Relationship | Address | Phone | + + +---------+ + | Lara Azevedo | ECON | Unknown | | + + +---------+ + Care Team Providers + +------+ + | Care Casting Room Operator Name | Role | Phone | + +------+ + | Kait Velazquez MD | PCP | | + +------+ + Encounter Details +--------+ + + + + | Date | Type | Department | Care Team | Description | +--------+ + + + + | 02/03/ | Procedure | [facility] | | | | 2018 | Pass | OP LOC [address] [place] [address] | | | | | | [place], [place] | | | | | | [address] | | | +--------+ + + + + Social History + +-------+ +--------+ + | Tobacco Use | Types | Packs/Day | Years | Date | | | | | Used | | + +-------+ +--------+ + | Former Smoker | | | | Quit: 1991 | + +-------+ +--------+ + + +---+---+---+ | Smokeless Tobacco: | | | | | Never Used | | | | + +---+---+---+ + + +---------+ + | Alcohol Use | Drinks/Week | oz/Week | Comments | + + +---------+ + | Not Currently | | | | + + +---------+ + + + [...] as of this encounter Plan of Treatment +--------+---------+ + + + | Date | Type | Specialty | Care Team | Description | +--------+---------+ + + + | 02/28/ | Office | Neurological Surgery | Cosme Baker, | | | 2018 | Visit | | [facility] [address] | | | | | | [facility] [place] | | | | | | [address] | | | | | | | | +--------+---------+ + + + documented as of this encounter Visit Diagnoses Not on filedocumented in this encounter"
--- OUTSIDE RECORDS SUMMARY | ~2019-02-23 | XMS | Encounter Summary ---
Demographics + + + | Address | [address] | | | [place] [address] | + + + | Home Phone | | + + + | Preferred Language | Unknown | + + + | Marital Status | | + + + | Zoroastrian Affiliation | Unknown | + + + | Race | Unknown | + + + | Ethnic Group | Unknown | + + + Author + + + | Author | [facility] | | | and [place] | + + + | Organization | [facility] | | | and [...] Team Providers + +------+ + | Care Micro Lab Analyst Name | Role | Phone | + +------+ + | Kait Velazquez MD | PCP | | + +------+ + Reason for Visit + + + | Reason | Comments | + + + | Medication Refill | | + + + Encounter Details +--------+--------+ + + + | Date | Type | Department | Care Team | Description | +--------+--------+ + + + | 01/02/ | Refill | [facility] [place] | [place], | Medication Refill | | 2018 | | PHYSIATRY [address] | [address] | | | | | [place], | [place], | | | | | [place] [address] | [place] [address] | | | | | [phone] | [phone] | | | | | | | | +--------+--------+ + + + Social History + + [...] Not on filedocumented as of this encounter Visit Diagnoses Not on filedocumented in this encounter"
--- OUTSIDE RECORDS SUMMARY | ~2019-02-23 | XMS | Encounter Summary ---
Demographics + + + | Address | [address] | | | [place] [address] | + + + | Home Phone | | + + + | Preferred Language | Unknown | + + + | Marital Status | | + + + | Taoism Affiliation | Unknown | + + + | Race | Unknown | + + + | Ethnic Group | Unknown | + + + Author + + + | Author | [facility] | | | and [place] | + + + | Organization | [facility] | | | and [...] Team Providers + +------+ + | Care Advertising Operations Manager Name | Role | Phone | + [...] Description | +--------+--------+ + + + | 12/04/ | Refill | [facility] [place] | [place], | Medication Refill | | 2018 | | PHYSIATRY [address] | [address] | | | | | [place], | [place], | | | | | [place] [address] | [place] [address] | | | | | [phone] | [phone] | | | | | | | [...]
--- OUTSIDE RECORDS SUMMARY | ~2019-02-23 | XMS | Encounter Summary ---
Demographics + + + | Address | [address] | | | [place] [address] | + + + | Home Phone | | + + + | Preferred Language | Unknown | + + + | Marital Status | | + + + | Jewish Affiliation | NRP | + + + [...] Team Providers + +------+ + | Care Inside Barrel Polisher Name | Role | Phone | + +------+ + | Kait Velazquez MD | PCP | | + +------+ + Encounter Details +--------+ + + + + | Date | Type | Department | Care Team | Description | +--------+ + + + + | 01/24/ | Document-Sc | [facility] | Sanjay Finnegan MD | | | 2019 | anned | [facility] [address] | [address] | | | | | [address] | [address] | | | | | [address] | [place] [address] | | | | | [place], [place] | [phone] | | | | | [address] | | | | | | [phone] | | | +--------+ + + + [...] | 2018 | Visit | | [address] | | | | | | [place] | | | | | | [address] | | | | | | | | +--------+---------+ + + + documented as of this encounter Visit Diagnoses Not on filedocumented in this encounter"
--- OUTSIDE RECORDS SUMMARY | ~2019-02-23 | XMS | Encounter Summary ---
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 | [phone] | Lumbar spondylosis; | | | | | | Foraminal stenosis | | | | | | of lumbar region; | | | | | | DDD (degenerative | | | | | | disc disease), | | | | | | lumbar | +--------+---------+ + + + Social History + + [...] + + documented as of this encounter Last Filed Vital Signs + + + + + | Vital Sign | Reading | Time Taken | Comments | + + + + + | Blood Pressure | 123/68 | 01/02/2018 8:36 AM | | | | | PDT | | + + + + + | Pulse | 63 | 01/02/2018 8:36 AM | | | | | PDT | | + + + + + | Temperature | - | - | | + + + + + | Respiratory Rate | - | - | | + + + + + | Oxygen Saturation | - | - | | + + + + + | Inhaled Oxygen | - | - | | | Concentration | | | | + + + + + | Weight | 120.2 kg (265 lb) | 01/02/2018 8:36 AM | | | | | PDT | | + + + + + | Height | 175.3 cm (5' 9") | 01/02/2018 8:36 AM | | | | | PDT | | + + + + + | Body Mass Index | 39.13 | 01/02/2018 8:36 AM | | | | | PDT | | + + + + + documented in this encounter Progress Notes Елена Patino PA-C - 01/02/2018 8:40 AM PDTFormatting of this note might be differe nt from the original. Елена Patino PA-C [address] [facility] [place], [address] [place] [address] FAX: PHYSICAL MEDICINE AND REHABILITATION H&P CHIEF COMPLAINT: Chief Complaint Patient presents with Follow-up Bilateral L5-S1 TFESI HISTORY OF PRESENT ILLNESS: The patient is a 72 y.o. male being seen today for follow up c omplaints of back pain that began a chronic issue for months now. He reports over 50% improv ement. Has has the majority of low back pain with prolonged standing and activities. He has no pain with rest, sitting, lying down. The pain no longer wakes him at night. Since he saw me this spring, he has undergone facet steroid injections and RFA therapy of t he L4/L5, L5/S1 facet joints. He reports this procedure gave him 60% improvement. The angelica ent is then under went a bilateral L5/S1 TFESI to target the spinal stenosis at L4/L5. This gave him 50% relief. He also got off his oxycodone, he went through withdrawls, but this was minimized due to th e ativan I gave him. A Gene Sight testing was done and he was switched onto Celebrex, l-mye thylfolate, carbamezapine, Wellbutrin. The patient and his report with all these clemente es, he is much more happy, motivated and both his and his sister have noticed a huge di fference. He is very happy with his overall results. He was having left leg symptoms, however this improved with PT and facet ablation therapy. The patient does not describe numbness of the legs. He does not report weakness of the leg s. He does not have bowel and bladder dysfunction. He does not have saddle anesthesia. Treatments for these complaints have included physical therapy, use of narcotics, muscle re laxer's and RFA therapy of the L4-L5, L5/S1 facet joints. Patient's medications, allergies, past medical, surgical, social and family histories were reviewed and updated as appropriate. CURRENT MEDICATIONS: Current Outpatient Prescriptions Medication Sig Dispense Refill aspirin 81 MG tablet Take 81 mg by mouth Daily. B Complex-C (SUPER B COMPLEX/VITAMIN C PO) Take 1 tablet by mouth Daily. buPROPion (WELLBUTRIN XL) 150 mg 24 hr tablet TAKE 1 TABLET BY MOUTH EVERY DAY 90 table t 0 carBAMazepine (TEGRETOL) 100 mg chewable tablet CHEW AND SWALLOW 1 TABLET BY MOUTH 3 TI MES DAILY WITH MEALS 270 tablet 0 celecoxib (CELEBREX) 200 mg capsule TAKE 1 CAPSULE BY MOUTH TWICE DAILY 180 capsule 2 cholecalciferol (VITAMIN D-3) 1,000 units capsule Take 1,000 Units by mouth Daily. Desoximetasone 0.05 % GEL Apply 1 Application topically 2 times daily. ELIQUIS 5 MG tablet Take 1 tablet by mouth Daily. 4 famotidine (PEPCID) 40 MG tablet Take 1 tablet by mouth nightly. 1 l-methylfolate 15 mg tablet Take 1 tablet by mouth Daily. 30 tablet 2 levothyroxine (SYNTHROID) 50 mcg tablet Take 50 mcg by mouth Daily. lisinopril (PRINIVIL, ZESTRIL) 5 mg tablet Take 5 mg by mouth 2 times daily. LORazepam (ATIVAN) 1 mg tablet Take 1 tablet by mouth Twice daily as needed for Anxiet y. 20 tablet 0 metFORMIN (GLUCOPHAGE) 500 mg tablet Take 500 mg by mouth Daily. methylPREDNISolone (MEDROL DOSEPAK) 4 mg tablet Follow package directions. 21 tablet 0 metoprolol succinate (TOPROL-XL) 50 mg 24 hr tablet Take 50 mg by mouth Daily. metroNIDAZOLE (METROCREAM) 0.75 % cream Apply 45 g topically as needed. 3 nitroglycerin (NITROSTAT) 0.[address] 0.4 mg under the tongue as needed. No current facility-administered medications for this visit. ALLERGIES: Allergies Allergen Reactions Food Shortness Of Breath Seafood Formaldehyde Shortness Of Breath Iodinated Diagnostic Agents Shortness Of Breath and Rash Trouble Breathing Iodine Anaphylaxis Lovastatin Anaphylaxis, Diarrhea and Nausea And Vomiting Aches and pains Penicillins Shortness Of Breath and Rash Sodium Chloride Shortness Of Breath "hallogens" Tamsulosin Other (See Comments) Unable to remember Niacin And Related Other (See Comments) Doesn't recall Hydrocodone-Acetaminophen Rash REVIEW OF SYSTEMS: A multisystem review of system checklist was reviewed with the patient and shows only the p ain and/or parasthesias and other complaints as in HPI. All remaining review of systems was negative. PHYSICAL EXAMINATION: Vitals: 01/02/18 0836 BP: 123/68 Pulse: 63 PainSc: 4 PainLoc: Generalized Body mass index is 39.13 kg/m. GENERAL: The patient is well developed and well nourished. He does not appear uncomfortabl e when seated. HEENT: HEAD/FACE: EYES: EARS: NASOPHARNYX: OROPHARNYX: Normocephalic and atraumatic. There are no areas of recent trauma. Normal sclerae without icterus. No drainage or tenderness. Clear without drainage. Clear without erythema. SKIN Limited skin exam shows no significant rashes or lesions. There are not scars in the lumbar region. CHEST: The patient is in no acute respiratory distress with unlabored respirations. HEART: There is not lower extremity edema. ABDOMEN: The patient is overweight. NEUROLOGIC: The patient is awake, alert, and oriented to time, place, person. He follows simple and complex commands. His speech is fluent. He comprehends speech well. He has no apparent deficits with short or meterman memory. He has appropriate fund of knowledge Cranial nerves 2-12 appear grossly intact. Sensory exam does not show diminished sensation to light touch in the lower extremities. MUSCULOSKELETAL There is no tenderness in the midline of the cervical or thoracic spine. T here is no major palpable deformity of the spine. Straight leg raise and slump-sit are negative. Quinn's maneuver and impingement testing were negative for any groin pain. There was no tenderness to palpation over the greater tr ochanters or sacral sulci. The patient localized the majority of the pain to the L5/S1 amrita on . Lumbar facet loading was negative. Strength testing showed 5/5 strength throughout th e lower extremities. The patient was able to heel and toe walk without difficulty. There w as no redness, effusion, warmth or joint line tenderness in the knees or ankles. RADIOGRAPHIC REVIEW: The patient's imaging was reviewed in detail with the patient today during the visit. Lumb ar MRI from 2017 shows lumbar DDD with disc space narrowing at L4/L5, L5/S1, moderate to sev ere facet arthritis/hypertrophy with foraminal stenosis on the left at L4/L5. ASSESSMENT: 1. Lumbar facet arthropathy (HCC) 2. Lumbar radicular pain 3. Lumbar spondylosis 4. Foraminal stenosis of lumbar region 5. DDD (degenerative disc disease), lumbar PLAN: 1. Patient is seeing Atul Lawler and Dr. Finnegan today to discuss surgery, I do feel if they were to offer a surgery, such as fusion L4-S1, the patient would benefit greatly from this. 2. Patient has participated in physical therapy, this was done at [facility]. 3. I will follow up with him in 3 months, at this time, we may repeat the bilateral L5/S1 TFESI or do RFA therapy again if surgery has not been performed. 4. He is to continue on the L-methylfolate 15mg daily, Wellbutrin 150mg q24 hours in AM. Celebrex 200mg BID, and Carbamezapine 100mg up to TID if needed. ELECTRONICALLY SIGNED BY: Елена Patino PA-C, 01/02/2018 CC: Aleksander Velazqueztronically signed by Елена Patino PA-C at 01/02/2018 9:20 AM PD Tdocumented in this encounter Plan of Treatment Not on filedocumented as of this encounter Visit Diagnoses + + | Diagnosis | + + | Lumbar facet arthropathy - Primary Lumbosacral spondylosis without myelopathy | + + | Lumbar radicular pain Thoracic or lumbosacral neuritis or radiculitis, unspecified | + + | Lumbar spondylosis Lumbosacral spondylosis without myelopathy | + + | Foraminal stenosis of lumbar region Spinal stenosis, lumbar region, without | | neurogenic claudication | + + | DDD (degenerative disc disease), lumbar Degeneration of lumbar or lumbosacral | | intervertebral disc | + + documented in this encounter
--- OUTSIDE RECORDS SUMMARY | ~2019-02-23 | XMS | Encounter Summary ---
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
--- OUTSIDE RECORDS SUMMARY | ~2019-02-23 | XMS | Encounter Summary ---
Demographics + + + | Address | [address] | | | [place] [address] | + + + | Home Phone | | + + + | Preferred Language | Unknown | + + + | Marital Status | | + + + | Roman Catholic Affiliation | NRP | + + + [...] Phone | + + +---------+ + | Jasmin Azevedo | ECON | Unknown | | + + +---------+ + Care Team Providers + +------+ + | Care Manager Of Exhibitions And Collections Name | Role | Phone | + +------+ + | Kait Velazquez MD | PCP | | + +------+ + Reason for Visit AUTH/CERT +--------+--------+ + + + + | Status | Reason | Specialty | Diagnoses / | Referred By | Referred To | | | | | Procedures | Contact | Contact | +--------+--------+ + + + + | | | | | | | +--------+--------+ + + + + Encounter Details +--------+---------+ + + + | Date | Type | Department | Care Team | Description | +--------+---------+ + + + | 02/03/ | Surgery | [facility] | Sanjay Finnegan MD | EXTREME LATERAL | | 2019 | | OP LOC [address] | [address] | INTERBODY FUSION | | | | [address] [place], [place] | [address] | L4-5/TRANSFORAMINAL | | | | [address] | [place] [address] | INTERBODY FUSION | | | | | [phone] | L5-S1/POSTERIOR | | | | | | L4-S1 FUSION | +--------+---------+ + + + Social History + +-------+ [...] + + + | Blood Pressure | 149/78 | 02/10/2019 5:05 AM | | | | | PDT | | + + + + + | Pulse | 68 | 02/10/2019 5:05 AM | | | | | PDT | | + + + + + | Temperature | 36.4 C (97.5 F) | 02/10/2019 5:05 AM | | | | | PDT | | + + + + + | Respiratory Rate | 18 | 02/10/2019 5:05 AM | | | | | PDT | | + + + + + | Oxygen Saturation | 98% | 02/10/2019 5:05 AM | | | | | PDT | | + + + + + | Inhaled Oxygen | - | - | | | Concentration | | | | + + + + + | Weight | 125.7 kg (277 lb 1.9 | 02/03/2019 6:57 AM | | | | oz) | PDT | | + + + + + | Height | 175.3 cm (5' 9") | 02/03/2019 6:57 AM | | | | | PDT | | + + + + + | Body Mass Index | 40.92 | 02/03/2019 6:57 AM | | | | | PDT | | + + + + + documented in this encounter Functional Status + + + + | Functional Status | Response | Date of Assessment | + + + + | Because of a physical, mental, or emotional | No | 02/04/2019 | | condition, do you have serious difficulty | | | | doing errands alone such as visiting the | | | | doctor? | | | + + + + + + + + | Cognitive Status | Response | Date of Assessment | + + + + | Because of a physical, mental, or emotional | No | 02/04/2019 | | condition, do you have serious difficulty | | | | concentrating, remembering, or making | | | | decisions? 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 Patient has had low back pain with num bness and failed conservative management. Patient underwent a minimally invasive L4-S1 fusi on using anterior and posterior approaches on 02/03/[address] Finnegan. He also had the foll owing medical problems: #Lumbar DJD and radiculopathy Status post minimally invasive L4-S1 anterior posterior approach fusion by Dr. Finnegan on 02/03 C/w PT/OT Encouraged incentive spirometry. NSGY following Steroids with last dose on discharge. Will be at SNF for rehab #Postop urinary retention: NS team discussed the case with Dr. English with urology and he recommended Montano catheter. Flomax has been started. Montano came out and patient is v oiding w/o difficulty. #Opiate-induced constipation:Continue senna and MiraLAX. Enema was ordered by NS team. Patient had bowel movements prior to discharge #Coronary artery disease with history of LAD stent placement in 2017:Continue metoprolol. No aspirin for now. Patient cannot tolerate statin. #Paroxysmal A. fib:Currently appears to be in sinus rhythm. Continue metoprolol. Contin ue to hold Eliquis and resume POD#7. Postoperative day #7 is 02/10/2018 #History of recurrent DVT unprovoked 1976 82 and unprovoked 2006 POD#7 will resume Eliquis. 02/10 #Obstructive sleep apnea:Patient using CPAP at bedtime #Hypertension:Currently stable, continue Toprol-XL and lisinopril #Hypothyroidism Continue Synthroid Discharge physical exam: Last Vitals: BP 149/78 (BP Location: Right upper arm, Patient Position: Lying on back) | P ulse 68 | Temp 36.4 C (97.5 F) (Temporal) | Resp 18 | Ht 1.753 m (5' 9") | Wt 125.7 kg (277 lb 1.9 oz) | SpO2 98% | BMI 40.92 kg/m | BSA 2.47 m 24 Hour Vital Min/Max: Systolic (24hrs), Av , Min:130 , Max:149 Diastolic (24hrs), Av, Min:71, Max:78 Pulse Min: 68 Max: 68 Temp Min: 36.2 C (97.2 F) Max: 36.4 C (97.5 F) Resp Min: 16 Max: 18 SpO2 Min: 96 % Max: 98 % Intake/Output Summary (Last 24 hours) at 02/10/2019 1820 Last data filed at 02/10/2019 0800 Gross per 24 hour Intake 300 ml Output Net 300 ml General Appearance: no apparent distress Eyes: PERRLA, EOMI, normal conjunctiva, anicteric sclera HENT: moist mucous membranes, oropharynx clear Neck: supple, no lymphadenopathy, no thyromegaly, full range of motion Respiratory: Clear to auscultation without wheezes, rales, rhonchi, breathing comfortably o n room air Cardiovascular: Normal rate, regular rhythm without murmurs, rubs or gallops, radial pulses 2+ Gastrointestinal: Soft, non distended, non tender, normal bowel sounds Extremities: Warm and well perfused, no edema Skin: Incisions clean and dry Neurologic: Alert, answering questions appropriately, fluent speech, no facial droop, movin g all extremities spontaneously and against gravity Psych: cooperative and pleasant, well groomed List of medications: Medication List START taking these medications acetaminophen 325 mg Tab Commonly known as: TYLENOL Take 2 tablets by mouth every six hours as needed for fever or mild pain. bisacodyl 10 mg Supp Commonly known as: DULCOLAX Unwrap and insert 1 suppository rectally once daily as needed (2nd line for no BM in past 2 days OR if no response to MIRALAX or if patient unable to tolerate oral). dexAMETHasone 2 mg Tab Commonly known as: DECADRON Take 1 tablet by mouth every twenty-four hours. lactobacillus rhamnosus (GG) Cap Commonly known as: CULTURELLE Take 1 capsule by mouth once daily. methocarbamol 500 mg Tab Commonly known as: ROBAXIN Take 1 tablet by mouth three times daily as needed. tamsulosin 0.4 mg Cap Commonly known as: FLOMAX Take 1 capsule by mouth once daily. CHANGE how you take these medications amitriptyline 10 mg Tab Commonly known as: ELAVIL Take 1 tablet by mouth once daily in the evening. What changed: medication strength how much to take oxyCODONE (immediate release) 5 mg Tab Commonly known as: ROXICODONE Take 1 tablet by mouth every six hours as needed for severe pain. What changed: when to take this reasons to take this CONTINUE taking these medications ELIQUIS 5 mg Tab Generic drug: apixaban take 1 tablet by mouth twice a day ezetimibe 10 mg Tab Commonly known as: ZETIA take 1 tablet by mouth once daily levothyroxine 50 mcg Tab Take 50 mcg by mouth before breakfast. lisinopril 10 mg Tab Commonly known as: PRINIVIL Take 10 mg by mouth once daily. metoprolol succinate 50 mg Tb24 Commonly known as: TOPROL-XL Take 50 mg by mouth once daily at bedtime. STOP taking these medications aspirin EC 81 mg Tbec cholecalciferol (Vitamin D3) 1,000 unit Cap Commonly known as: VITAMIN D diclofenac 1 % Gel Commonly known as: VOLTAREN diphenhydrAMINE 25 mg Cap Commonly known as: BENADRYL nitroglycerin 0.4 mg Subl Commonly known as: NITROSTAT Outstanding diagnostic studies requiring followup: Neurosurgery follow-up Condition on discharge: Stable Discharge destination: Home Follow-up Appointments: Future Appointments Provider Department Dept Phone Center 02/28/2019 10:45 AM Cosme Kenny [facility] Neurosurgery at 7th [phone] [facility] Neurosur Code Status for Facility Status: Full Code Condition on Discharge Stable Discharge Follow Up - Facility MD to follow Facility MD to follow patient. Please CC to: Primary Care Provider Kait Velazquez MD [address] [place] [address] If you have any of the following: Difficulty breathing or unusual shortness of breath Excessive bleeding, drainage at the operative site Fevers, chills, increased pain that is not relieved by pain medications Persistent nausea or vomiting Discharging Attending: Chloe Osei DO I spent more than 35 minutes in the discharge planning of this patient with over 50% of my time [id number] with the patient in evaluating and counseling, evaluating labs/images and other clinical data, as well as in coordination of care. Conservative management.Electronic ally signed by Chloe Osei DO at 02/12/2019 11:01 PM PDTdocumented in this encounter Discharge Instructions Discharge Instr - Diet (facility) Cosme Kenny PA-C - 02/07/2019 2:33 PM PDTDiet Type : Diabetic diet (Consistent Carbohydrate)Electronically signed by Cosme Kenny PA-C at 1 2:33 PM PDT Discharge Instr - Activity (facility) Cosme Kenny PA-C - 02/07/2019 2:33 PM PDTActiv ity: -Activity instructions: no strenuous exercise, no bending/twisting, lifting restricted to < 1/2 gallon of milk in weight. -No forward bending to the floor to scrap picker objects -Keep head above the level of the heart -Walk 150 feet 3-4 times daily -You may remove compression stockings when you are able to walk 150 feet three times daily. -No driving after surgery or while taking opioid pain medications, muscle relaxants or any other medication that causes drowsiness. This will be addressed at your 2 weeks post-op vis it. -Physical therapy recommendations will be addressed at your 2 weeks post-op visit. -LSO brace on at all times except to shower. Discharge Instr - Additional Instructions (facility) Cosme Kenny PA-C - 02/07/2019 1 :32 PM PDTPhysical Therapy: Evaluate & Treat Occupational Therapy: Evaluate & Treat Full Code Neurosurgery Discharge Plan of Care Wound Care: LUMBAR and flank incisions *no submersion in water - no bath or swimming *If you have Dermabond (SKIN GLUE) on your incision you may shower on post-op day #3. Pain: -PRN Tylenol -Do not exceed 4 grams of acetaminophen daily -As needed pain medication. Wean off as soon as possible -NO NSAIDs (Ibuprofen, motrin, Aleve) DVT: Re-start Eliquis 5 mg PO BID on 02/10/2019 @2100. Medication warning Continue to AVOID the following: *All non-steroidal anti-inflammatories and anti-platelet medications. *All Marijuana products (inhalational, edible, topical) *All herbal supplements, including herbal tea *Topical NSAIDs/pain relievers (Diclofenac, Aspercreme, Voltaren gel, etc.) DO NOT RESTART THESE MEDICATIONS UNTIL CLEARED BY [facility]ICAL [facility] NEUROSURGERY. Activity: -Activity instructions: no strenuous exercise, no bending/twisting, lifting restricted to < 1/2 gallon of milk in weight. -No forward bending to the floor to scrap picker objects -Keep head above the level of the heart -Walk 150 feet 3-4 times daily -You may remove compression stockings when you are able to walk 150 feet three times daily. -No driving after surgery or while taking opioid pain medications, muscle relaxants or any other medication that causes drowsiness. This will be addressed at your 2 weeks post-op vis it. -Physical therapy recommendations will be addressed at your 2 weeks post-op visit. -LSO brace on at all times except to shower. Diet: -Diabetic diet : Montano out. Voiding well. UC was negative-no growth. Bowel: -daily bowel protocol recommend Miralax, Metamucil -no straining Neurosurgery Follow-up -follow-up in 4 weeks for recheck.- sooner should additional concerns arise. 02/28/2019 @ 1 0:30 AM. Xrays prior to appt. Check in on 1st Floor in [address] [place] [address]. Office Address: Dr Sanjay Finnegan [facility] [address], [address] [place] [address] PPD per policy Facility MD to follow/manage patient "I certify that post-hospital inpatient assisted facility care is medically necessar y on a continuing basis for treatment of the same condition for which inpatient acute hospit al care was received." MAKSIM De León-C T documented in this encounter Medications at Time of Discharge + + + +---------+ + + | Medication | Sig | Dispensed | Refills | Start | End Date | | | | | | Date | | + + + +---------+ + + | acetaminophen 325 | Take 2 tablets by | | 0 | 02/11/20 | | | mg oral | mouth every six | | | 19 | | | tabletIndications: | hours as needed for | | | | | | Lumbar degenerative | fever or mild pain. | | | | | | disc disease | | | | | | + + + +---------+ + + | amitriptyline 10 | Take 1 tablet by | 30 | 0 | 02/11/20 | | | mg oral tablet | mouth once daily in | tablet | | 19 | | | | the evening. | | | | | + + + +---------+ + + | bisacodyl 10 mg | Unwrap and insert 1 | | 0 | 02/11/20 | | | rectal suppository | suppository rectally | | | 19 | | | | once daily as | | | | | | | needed (2nd line for | | | | | | | no BM in past 2 | | | | | | | days OR if no | | | | | | | response to MIRALAX | | | | | | | or if patient unable | | | | | | | to tolerate oral). | | | | | + + + +---------+ + + | dexAMETHasone 2 mg | Take 1 tablet by | 1 | 0 | 02/11/20 | | | oral tablet | mouth every | tablet | | 19 | | | | twenty-four hours. | | | | | + + + +---------+ + + | ELIQUIS 5 mg oral | take 1 tablet by | | 0 | 01/08/20 | | | tablet | mouth twice a day | | | 19 | | + + + +---------+ + + | ezetimibe 10 mg | take 1 tablet by | | 0 | 10/31/19 | | | oral tablet | mouth once daily | | | 19 | | + + + +---------+ + + | lactobacillus | Take 1 capsule by | | 0 | 02/11/20 | | | rhamnosus (GG) oral | mouth once daily. | | | 19 | | | capsule | | | | | | + + + +---------+ + + | levothyroxine 50 | Take 50 mcg by mouth | | 0 | | | | mcg oral tablet | before breakfast. | | | | | + + + +---------+ + + | lisinopril 10 mg | Take 10 mg by mouth | | 0 | 12/01/19 | | | oral tablet | once daily. | | | 19 | | + + + +---------+ + + | methocarbamol 500 | Take 1 tablet by | 15 | 0 | 02/11/20 | | | mg oral tablet | mouth three times | tablet | | 19 | | | | daily as needed. | | | | | + + + +---------+ + + | metoprolol | Take 50 mg by mouth | | 0 | 11/10/19 | | | succinate 50 mg oral | once daily at | | | 19 | | | tablet extended | bedtime. | | | | | | release 24 hr | | | | | | + + + +---------+ + + | oxyCODONE | Take 1 tablet by | 20 | 0 | 02/11/20 | | | (immediate release) | mouth every six | tablet | | 19 | | | 5 mg oral tablet | hours as needed for | | | | | | | severe pain. | | | | | + + + +---------+ + + | tamsulosin 0.4 mg | Take 1 capsule by | 30 | 0 | 02/11/20 | | | oral | mouth once daily. | capsule | | 19 | | | capsuleIndications: | | | | | | | Lumbar foraminal | | | | | | | stenosis, Other | | | | | | | idiopathic | | | | | | | scoliosis, lumbar | | | | | | | region, Other | | | | | | | spondylosis with | | | | | | | radiculopathy, | | | | | | | lumbar region, | | | | | | | Lumbar degenerative | | | | | | | disc disease | | | | | | + + + +---------+ + + documented as of this encounter Progress Notes Raya Ernandez RN - 02/10/2019 11:27 AM PDTPt discharged to [facility]. Pt left at 1125. Discharged summary sent with Augustin hamilton. Medicated with Robaxin and oxycodone prio r to discharge. Sack lunch sent with pt. All belonging checked and correct per list. to ok all the belongings. Called to give report to Maryann and call went to voicemail x2, left me ssage to call back regarding report on pt and that pt has left already the hospital. Await c all back from maryann for report. 12: 02 PM Brigid Cota RN - 02/10/2019 10:28 AM PDTADDENDUM: Per floor RN, second disc harge packet was found at RN station, which contained prescription of oxycodone. Floor RN h as notified facility and Hospitalist. Per facility, doc to doc may be necessary, if patient requesting pain control. Care Management Discharge Planning Note: Plan Discharge date/time: 02/10/19899 Recommendations for d/c: Discharge to swing bed at [facility] ([phone]). RNC M received message regarding call from Maryann at [facility]. RNCM left voice message request ing call back to discuss discharge planning. Discharge destination: [facility] ([phone]) Transportation (mode/via): [employer] / [employer] Patient Support/Family Contact (name & #): JASMIN AZEVEDO (spouse) : [phone] Potential Barriers to discharge : None Communication: Hospitalist and message left for floor RN. Brigid Suresh RN Gladys Resendez P A-C - 02/10/2019 9:03 AM PDT Neurosurgery - Follow up Chief Complaint: Back Pain Referring Provider: Sanjay Finnegan MD History of Present Illness: Mr. Azevedo, a 74 y.o. male, who underwent the following on 02/03/2019: 1. Minimally invasive L4-S1 fusion using anterior and posterior approaches 2. Posterolateral and posterior interbody arthrodesis L5-S1 3. Posterolateral lumbar arthrodesis L4-5 4. Anterior lumbar interbody arthrodesis L4-5 5. PEEK interbody spacer L4-5 and L5-S1 6. Posterior spinal instrumentation L4-S1 using Precept 7. L5 and partial S1 laminectomy, L5-S1 facetectomy, L5 and S1 foraminotomy for decompres becky of L5 and S1 nerves 8. Microsurgical technique with use of operating microscope 9. Allograft for arthrodesis. Today he is feeling well overall with mild pain around his left flank incision, which has b een improving. He was sitting up at the side of bed for breakfast, packed and ready to go to SNF. Voiding and having BMs without difficulty. Allergies Allergen Reactions Formaldehyde Dyspnea Iodinated Contrast Media Rash and Dyspnea Trouble Breathing Iodine Anaphylaxis Lovastatin Anaphylaxis, Diarrhea and Nausea and Vomiting Aches and pains Aches and pains Nut - Unspecified Dyspnea Seafood, shellfish Penicillins Unknown, Rash and Dyspnea Does not remember Sodium Chloride Dyspnea "hallogens" Hydrocodone-Acetaminophen Rash Does not remember Niacin Unknown Doesn't recall Povidone-Iodine Urticaria Sulfa (Sulfonamide Antibiotics) Unknown Current Facility-Administered Medications Medication Dose Route Frequency Provider Last Rate Last Dose acetaminophen (TYLENOL) tablet 650 mg 650 mg oral Q6H PRN Cosme Kenny PA-C 650 mg at 02/10/19 0611 amitriptyline (ELAVIL) tablet 10 mg 10 mg oral QPM Perico Brown MD 10 mg at 01/15 apixaban (ELIQUIS) tablet 5 mg 5 mg oral BID Chloe Osei DO bisacodyl (DULCOLAX) suppository 10 mg 10 mg rectal DAILY PRN Marvin Coburn MD dexAMETHasone (DECADRON) tablet 2 mg 2 mg oral Q24H Chloe Osei DO dextrose (GLUTOSE) 40 % gel 15 g 15 g oral PRN Gianna Glynn MD dextrose 50 % in water IV 25 mL 25 mL intravenous PRN Gianna Glynn MD famotidine (PEPCID) tablet 20 mg 20 mg oral BID Sanjay Finnegan MD 20 mg at 02/10/19 08 19 glucagon (GLUCAGEN) injection 1 mg 1 mg intramuscular PRN Gianna Glynn MD hydrocortisone 1 % cream topical BID Sanjay Finnegan MD insulin lispro (HUMALOG) injection 1-11 Units 1-11 Units subcutaneous TID W/MEALS Ashley Glynn MD 1 Units at 02/08/19 0100 lactobacillus rhamnosus (GG) (CULTURELLE) capsule 1 capsule 1 capsule oral DAILY Cryst joan Pagan, RD 1 capsule at 02/10/19 0819 levothyroxine tablet 50 mcg 50 mcg oral BEFORE BREAKFAST Marvin Coburn MD 50 mcg at 02/10/19 0611 lisinopril (PRINIVIL) tablet 10 mg 10 mg oral DAILY Marvin Coburn MD 10 mg at 02/10 0819 melatonin tablet 3 mg 3 mg oral HS PRN Marvin Coburn MD 3 mg at 02/05/19 2158 methocarbamol (ROBAXIN) tablet 500 mg 500 mg oral TID PRN Marvin Coburn MD 500 mg a t 02/10/19 0019 metoclopramide HCl (REGLAN) tablet 5-10 mg 5-10 mg oral Q4H PRN Marvin Coburn MD metoprolol succinate (TOPROL-XL) tablet 50 mg 50 mg oral HS Marvin Coburn MD 50 mg at 02/09/19 204 mineral oil (FLEET MINERAL OIL) rectal enema 133 mL 133 mL rectal DAILY PRN Cosme Kenny PA-C 133 mL at 02/06/19 1733 ondansetron ODT (ZOFRAN ODT) tablet 8 mg 8 mg oral Q8H PRN Marvin Coburn MD oxyCODONE (immediate release) (ROXICODONE) tablet 5-15 mg 5-15 mg oral Q3H PRN Marvin Coburn MD 5 mg at 02/09/19 2048 polyethylene glycol (MIRALAX) packet 17 g 17 g oral DAILY Marvin Coburn MD 17 g at 02/09/19 0822 polyethylene glycol (MIRALAX) packet 34 g 34 g oral TID PRN Marvin Coburn MD 34 g a t 02/07/192134 senna-docusate (SENOKOT S) 8.6-50 mg 2 tablet 2 tablet oral BID Marvin Coburn MD 2 tablet at 02/09/19 0823 tamsulosin (FLOMAX) capsule 0.4 mg 0.4 mg oral DAILY Cosme Kenny PA-C 0.4 mg at 02/10/19 0819 Past Medical History: Diagnosis Date Arthritis Bleeding tendency (HCC) BP (high blood pressure) Diabetes (HCC) Heart disease High cholesterol Sleep apnea Thyroid disorder Past Surgical History Procedure Laterality Date Knee surgery 2013, 2015 Total replacement of left shoulder joint Femur surgery Left 1977 Coronary stent placement 2016 Social History Tobacco Use Smoking status: Former Smoker Last attempt to quit: 1990 Years since quittin.8 Smokeless tobacco: Never Used Substance Use Topics Alcohol use: Not Currently Family History Problem Relation Hypertension Mother Heart Disease Mother Cancer Mother Diabetes Mother Heart Attack Father Arthritis Sister Atrial fibrillation Sister No Known Problems Brother Lung Cancer Sister Physical Exam: BP 149/78 (BP Location: Right upper arm, Patient Position: Lying on back) | Pulse 68 | Te mp 36.4 C (97.5 F) (Temporal) | Resp 18 | Ht 1.753 m (5' 9") | Wt 125.7 kg (277 lb 1. 9 oz) | SpO2 98% | BMI 40.92 kg/m | BSA 2.47 m Body mass index is 40.92 kg/m. General: NAD, speech fluent, mood and behavior within normal limits Resp: non-labored Neurological: Musculoskeletal: Gait: Not assessed. Tone: Normal tone in upper and lower extremities MOTOR SCORE LEFT RIGHT C5 (Shoulder Abduct) 5 5 C6 (Elbow Flex) 5 5 C7 (Elbox Ext) 5 5 C8 (Wrist Ext) 5 5 C8 (Museum Docent) 5 5 T1 (Pinky Abd) 5 5 Hand Intrinsics 5 5 L2 (Hip Flex) 4+ pain limited 5 L3 (Knee Ext) 5 5 L4 (Dorsiflexion) 5 5 L5 (EHL) 5 5 S1 (Plantar Flex) 5 5 Sensory: Sensation grossly intact to light touch throughout. Surgical Incisions: L flank incision benign, no shadowing. There is some superficial tape sheer. The areas are dry without weaping, no signs of infection. Posterior lumbar incisions clean dry and intact. Assessment: 1. Lumbar foraminal stenosis 2. Other idiopathic scoliosis, lumbar region 3. Other spondylosis with radiculopathy, lumbar region 4. Lumbar degenerative disc disease Neurosurgery Post-Op Plan of Care Post-Op Abx: -Cipro 400 mg IV [id number] Consults: -Hospitalist service to assess medical issues. Post-op Imaging/Laboratory: -AP/Lateral Lumbar x rays on POD #0Done Post-Op Hemodynamic Recommendations: -Keep SBP < 150 -Anti-hypertensives PRN Steroid Recommendations: -decadron taper completes tomorrow 02/11/19 Wound Care: -Keep the lumbarand left flanksurgical site covered x 7-10 daysthen remove the dressi ng. NO chloroprep to the surgical site Pain/Sedation: -PRN Tylenol -PRN robaxin -PRN oxycodone -PRNIV diladid Activity: -Up with assistwith PT/OT. Encourage patient to be out of bed to chair. -Activity instructions: no strenuous exercise, no bending/twisting, lifting restricted to < 1/2 gallon of milk in weight -SCDs while in bed Diet/Bowel: -Diabetic diet. -Daily stool softeners to prevent constipation : -Montano fell out over the weekend, pt has been voiding spontaneously. -Flomax 0.4 mg daily- Ordered. DVT (p): -Screening duplex US ordered -negative -lovenox discontinued -re-start eloquis 5 mg BID, start with 2100 dose Dispo planning: - Discharge to SNF today. Gladys Motta PA-C [facility] [address] [place] [address] Chloe Del Angel DO - 02/09/2019 8:55 PM PDT Hospital Medicine Progress Note Hospital Day# 6 Interval Hx: Seen walking in hallway with PT, doing well. Patient set to go to SNF in [place]. Objective Vitals Last Vitals: BP 130/71 (BP Location: Right upper arm, Patient Position: Lying on back) | P ulse 68 | Temp 36.2 C (97.2 F) (Temporal) | Resp 16 | Ht 1.753 m (5' 9") | Wt 125.7 kg (277 lb 1.9 oz) | SpO2 96% | BMI 40.92 kg/m | BSA 2.47 m 24 Hour Vital Min/Max: Systolic (24hrs), Av , Min:120 , Max:145 Diastolic (24hrs), Av, Min:66, Max:78 Pulse Min: 57 Max: 71 Temp Min: 36.2 C (97.2 F) Max: 36.9 C (98.4 F) Resp Min: 16 Max: 20 SpO2 Min: 95 % Max: 97 % Intake/Output Summary (Last 24 hours) at 02/09/20192054 Last data filed at 02/09/20191811 Gross per 24 hour Intake 250 ml Output Net 250 ml Physical Exam General Appearance: no apparent distress Eyes: PERRLA, EOMI, normal conjunctiva, anicteric sclera HENT: moist mucous membranes, oropharynx clear Neck: supple, no lymphadenopathy, no thyromegaly, full range of motion Respiratory: Clear to auscultation without wheezes, rales, rhonchi, breathing comfortably o n room air Cardiovascular: Normal rate, regular rhythm without murmurs, rubs or gallops, radial pulses 2+ Gastrointestinal: Soft, diffusely tender, surgical incision site covered with dressing Extremities: Warm and well perfused, no edema Skin: No rashes Neurologic: Alert, answering questions appropriately, fluent speech, no facial droop, movin g all extremities spontaneously and against gravity Psych: cooperative and pleasant, well groomed Laboratory Chemistries: Last 72 Hours (or 3 results) - Refreshable Recent Labs 02/09/19 0736 02/09/19 1315 02/09/19 1757 GLU 85 96 94 CBC with diff last 72 hours (or 3 results) - Refreshable Assessment and Plan: #Lumbar DJD and radiculopathy Status post minimally invasive L4-S1 anterior posterior approach fusion by Dr. Finnegan on 02/03 C/w PT/OT Encouraged incentive spirometry. NSGY following Steroids being tapered, last dose tomorrow #Postop urinary retention: NS team discussed the case with Dr. Tameka with urology and he recommended Montano catheter. Flomax has been started. Montano came out and patient is easton grace w/o difficulty. #Opiate-induced constipation: Continue senna and MiraLAX. Enema was ordered by NS team. Bowel Movements today #Coronary artery disease with history of LAD stent placement in 2017: Continue metoprolol. No aspirin for now. Patient cannot tolerate statin. #Paroxysmal A. fib: Currently appears to be in sinus rhythm. Continue metoprolol. 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 02/10 #Obstructive sleep apnea: Patient using CPAP at bedtime #Hypertension: Currently stable, continue Toprol-XL and lisinopril #Hypothyroidism Continue Synthroid #DVT prophylaxis Transtioned to Lovenox prophylaxis per NSGY, resume NOAC POD#7 02/10 Nutrition: Regular diet Code status - Full Emergency Contact - Anticipated Discharge - Sunday to [facility] Chloe Osei DO [facility] This note was written using the assistance of [employer] dictation software. I spent more than 25 minutes in the care of this patient with over 50% of my time face-to-f chris with the patient in evaluating and counseling, evaluating labs/images and other clinical data, as well as in coordination of care.Electronically signed by Chloe Osei DO at 01/15 8:55 PM Yvonne Jacobsen RN - 02/09/2019 4:27 PM PDT"Important Message from Medicare" letter explained and given to Patient by RNCM. Document signed and [facility] to [facility] to be scanned into EMR. Original document given to Patient. 02/09/19 at 1615 Yvonne DELEON glue clamp operator Marvin Rodríguez M D - 02/09/2019 7:31 AM PDT Neurosurgery - Inpatient note Attd: Sanjay Finnegan MD History of Present Illness: Mr. Azevedo, a 74 y.o. male, who underwent the following on 02/03: 1. Minimally invasive L4-S1 fusion using anterior and posterior approaches 2. Posterolateral and posterior interbody arthrodesis L5-S1 3. Posterolateral lumbar arthrodesis L4-5 4. Anterior lumbar interbody arthrodesis L4-5 5. PEEK interbody spacer L4-5 and L5-S1 6. Posterior spinal instrumentation L4-S1 using Precept 7. L5 and partial S1 laminectomy, L5-S1 facetectomy, L5 and S1 foraminotomy for decompres becky of L5 and S1 nerves 8. Microsurgical technique with use of operating microscope 9. Allograft for arthrodesis. Surgery date: 02/03/2019 Interval Events: MARIA E overnight Up in chair having breakfast this morning Pain controlled Voiding and having BMs without difficulty Allergies Allergen Reactions Formaldehyde Dyspnea Iodinated Contrast Media Rash and Dyspnea Trouble Breathing Iodine Anaphylaxis Lovastatin Anaphylaxis, Diarrhea and Nausea and Vomiting Aches and pains Aches and pains Nut - Unspecified Dyspnea Seafood, shellfish Penicillins Unknown, Rash and Dyspnea Does not remember Sodium Chloride Dyspnea "hallogens" Hydrocodone-Acetaminophen Rash Does not remember Niacin Unknown Doesn't recall Povidone-Iodine Urticaria Sulfa (Sulfonamide Antibiotics) Unknown Current Facility-Administered Medications: acetaminophen (TYLENOL) tablet 650 mg, 650 mg, oral, Q6H PRN, Cosme Kenny PA-C, 650 mg at 02/08/192217 amitriptyline (ELAVIL) tablet 10 mg, 10 mg, oral, QPM, Perico Brown MD, 10 mg at 8 bisacodyl (DULCOLAX) suppository 10 mg, 10 mg, rectal, DAILY PRN, Marvin Coburn MD dexAMETHasone (DECADRON) tablet 2 mg, 2 mg, oral, Q12H, Chloe Osei DO, 2 mg at 02/09/19 0547 dextrose (GLUTOSE) 40 % gel 15 g, 15 g, oral, PRN, Gianna Glynn MD dextrose 50 % in water IV 25 mL, 25 mL, intravenous, PRN, Gianna Glynn MD enoxaparin (LOVENOX) injection 40 mg, 40 mg, subcutaneous, QPM, Chloe Osei DO, 40 mg at 02/08/19 2218 famotidine (PEPCID) tablet 20 mg, 20 mg, oral, BID, Sanjay Finnegan MD, 20 mg at 02/08/19 2218 glucagon (GLUCAGEN) injection 1 mg, 1 mg, intramuscular, PRN, Gianna Glynn MD hydrocortisone 1 % cream, , topical, BID, Sanjay Finnegan MD insulin lispro (HUMALOG) injection 1-11 Units, 1-11 Units, subcutaneous, TID W/MEALS, Lion Davis MD, 1 Units at 02/08/19 0100 lactobacillus rhamnosus (GG) (CULTURELLE) capsule 1 capsule, 1 capsule, oral, DAILY, Smitha Pagan RD, 1 capsule at 02/08/19 0956 levothyroxine tablet 50 mcg, 50 mcg, oral, BEFORE BREAKFAST, Marvin Coburn MD, 50 mcg at 1 0547 lisinopril (PRINIVIL) tablet 10 mg, 10 mg, oral, DAILY, Marvin Coburn MD, 10 mg at 9 0955 melatonin tablet 3 mg, 3 mg, oral, HS PRN, Marvin Coburn MD, 3 mg at 02/05/19 2158 methocarbamol (ROBAXIN) tablet 500 mg, 500 mg, oral, TID PRN, Marvin Coburn MD, 500 mg at 02/07/19 0759 metoclopramide HCl (REGLAN) tablet 5-10 mg, 5-10 mg, oral, Q4H PRN, Marvin Coburn MD metoprolol succinate (TOPROL-XL) tablet 50 mg, 50 mg, oral, HS, Marvin Coburn MD, 50 mg at 02/08/19 2218 mineral oil (FLEET MINERAL OIL) rectal enema 133 mL, 133 mL, rectal, DAILY PRN, Cosme sifuentes PA-C, 133 mL at 02/06/19 1733 ondansetron ODT (ZOFRAN ODT) tablet 8 mg, 8 mg, oral, Q8H PRN, Marvin Coburn MD oxyCODONE (immediate release) (ROXICODONE) tablet 5-15 mg, 5-15 mg, oral, Q3H PRN, Marvin hanna MD, 5 mg at 02/09/19 0240 polyethylene glycol (MIRALAX) packet 17 g, 17 g, oral, DAILY, Marvin Coburn MD, 17 g at 1008 polyethylene glycol (MIRALAX) packet 34 g, 34 g, oral, TID PRN, Marvin Coburn MD, 34 g at 02/07/192134 senna-docusate (SENOKOT S) 8.6-50 mg 2 tablet, 2 tablet, oral, BID, Marvin Coburn MD, 2 ta blet at 02/08/19 0956 tamsulosin (FLOMAX) capsule 0.4 mg, 0.4 mg, oral, DAILY, Cosme Kenny PA-C, 0.4 mg at 1 0955 Labs: Lab Results Component Value Date WBC 6.80 02/06/2019 HB 11.6 02/06/2019 HCT 35.1 02/06/2019 PLT 145 02/06/2019 MCV 93.7 02/06/2019 RDW 13.3 02/06/2019 Lab Results Component Value Date NA 138 02/06/2019 K 4.1 02/06/2019 CL 102 02/06/2019 BICARB 25 02/06/2019 BUN 19 02/06/2019 CR 1.2 02/06/2019 GLU 146 02/08/2019 CA 8.8 02/06/2019 AST 28 02/06/2019 ALT 18 02/06/2019 AP 44 02/06/2019 TBILI 0.4 02/06/2019 TP 6.3 02/06/2019 ALB 3.2 02/06/2019 ANIONGAP 11 02/06/2019 Physical Exam: Last Vitals: BP 125/71 (BP Location: Right upper arm, Patient Position: Lying on back) | P ulse 58 | Temp 36.5 C (97.7 F) (Temporal) | Resp 20 | Ht 1.753 m (5' 9") | Wt 125.7 kg (277 lb 1.9 oz) | SpO2 95% | BMI 40.92 kg/m | BSA 2.47 m 24 Hour Vital Min/Max: Systolic (24hrs), Av , Min:108 , Max:136 Diastolic (24hrs), Av, Min:60, Max:77 Pulse Min: 58 Max: 114 Temp Min: 36.5 C (97.7 F) Max: 37.4 C (99.3 F) Resp Min: 20 Max: 20 SpO2 Min: 92 % Max: 97 % Intake/Output Summary (Last 24 hours) at 02/09/2019 0732 Last data filed at 02/08/2019 2218 Gross per 24 hour Intake 560 ml Output Net 560 ml General: NAD, speech fluent, mood and behavior within normal limits Resp: non-labored Neurological: A&O X3. NAD. Interactive. Musculoskeletal: Gait: Not assessed. Tone: Normal tone in upper and lower extremities MOTOR SCORE RIGHT LEFT L2 (Hip Flex) 4+ pain limit 4+ pain limit L3 (Knee Ext) 5 5 L4 (Dorsiflexion) 5 5 L5 (EHL) 4+ 5 S1 (Plantar Flex) 5 5 Sensory: Sensation grossly intact to light touch BLE. Surgical Incisions: L flank incision benign, no shadowing. Posterior lumbar incisions clean dry and intact. Diagnostic Results: X-ray Spine Lumbosacral 2 Views Result Date: 02/04/2019 EXAM DESCRIPTION: X-RAY SPINE LUMBOSACRAL 2 VIEWS CLINICAL HISTORY: Postop L4-S1 fusion C OMPARISON: 11/19/2018. TECHNIQUE: Two views of the lower lumbar spine. FINDINGS: Right upp er are partially obscured on the lateral view. There is intact posterior fusion hardware at L4 through S1. Two surgical drains are seen on the left. Interbody spaces are present at the L3-4 and L4-5 levels. No gross fracture identified. Vertebral body heights appear maintaine d. IMPRESSION: Status post L4 through S1 discectomy and fusion. Signed By: Luis M Perdomo On 02/04/2019 08:13:21 Assessment: 1. Lumbar foraminal stenosis 2. Other idiopathic scoliosis, lumbar region 3. Other spondylosis with radiculopathy, lumbar region 4. 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 -Urology for urinary retention Post-op Imaging/Laboratory: -AP/Lateral Lumbar x rays on POD #0 Done Post-Op Hemodynamic Recommendations: -Keep SBP < 150 -Anti-hypertensives PRN Steroid Recommendations: -decadron taper Wound Care: -Keep the lumbar and left flank surgical site covered x 7-10 days then remove the dressing. NO chloroprep to the surgical site Pain/Sedation: -Scheduled Tylenol x 10 doses post-op -PRN robaxin -PRN oxycodone -PRN IV diladid Activity: -Up with assist with PT/OT. Encourage patient to be out of bed to chair. -Activity instructions: no strenuous exercise, no bending/twisting, lifting restricted to < 1/2 gallon of milk in weight -SCDs while in bed Diet/Bowel: -Diabetic diet. -Daily stool softeners to prevent constipation : -Mild urinary retention after removal of montano catheter. -Flomax 0.4 mg daily- Ordered. -Montano placement for 10 days for bladder rest and then voiding trial in their office at [facility] t time. No prophylactic abx indicated for Montano. -now voiding independently. Low threshold for straight cath if unable DVT (p): -Screening duplex US ordered -negative -lovenox -re-start home PO AC on POD7 Dispo planning: - SNF when bed available. Ready for discharge Marvin Coburn MD Neurosurgery, PGY-4 7:32 AM 02/09/2019 Neurosurgery Attending Patient requires medical transport w stretcher at discharge given his procedure and duratio n/distance to [facility].Pt will require medication prior to discharge. I saw and performed a physical examination of the patient and discussed the patient's manag ement with Dr Coburn's. I reviewed Dr Coburn note and agree with the documented findings and plan of care. Jamie Deng MD [facility] Department of Neurological Sas Sql DeveloperBurning Supervisor Mer, Chloe Brown, DO - 1 4:24 PM PDT Hospital Medicine Progress Note Hospital Day# 5 Interval Hx: Seen walking in hallway with PT, doing well. Met with patient and . He has no complaints. Montano came out last night, voiding w/o difficulty. Objective Vitals Last Vitals: BP 108/60 (BP Location: Right upper arm, Patient Position: Lying on back) | P ulse 84 | Temp 36.5 C (97.7 F) (Temporal) | Resp 20 | Ht 1.753 m (5' 9") | Wt 125.7 kg (277 lb 1.9 oz) | SpO2 94% | BMI 40.92 kg/m | BSA 2.47 m 24 Hour Vital Min/Max: Systolic (24hrs), Av , Min:104 , Max:127 Diastolic (24hrs), Av, Min:58, Max:71 Pulse Min: 75 Max: 114 Temp Min: 36.5 C (97.7 F) Max: 37.4 C (99.3 F) Resp Min: 20 Max: 20 SpO2 Min: 92 % Max: 95 % Intake/Output Summary (Last 24 hours) at 02/08/2019 1624 Last data filed at 02/08/2019 0927 Gross per 24 hour Intake 910 ml Output 200 ml Net 710 ml Physical Exam General Appearance: no apparent distress Eyes: PERRLA, EOMI, normal conjunctiva, anicteric sclera HENT: moist mucous membranes, oropharynx clear Neck: supple, no lymphadenopathy, no thyromegaly, full range of motion Respiratory: Clear to auscultation without wheezes, rales, rhonchi, breathing comfortably o n room air Cardiovascular: Normal rate, regular rhythm without murmurs, rubs or gallops, radial pulses 2+ Gastrointestinal: Soft, diffusely tender, surgical incision site covered with dressing Extremities: Warm and well perfused, no edema Skin: No rashes Neurologic: Alert, answering questions appropriately, fluent speech, no facial droop, movin g all extremities spontaneously and against gravity Psych: cooperative and pleasant, well groomed Laboratory Chemistries: Last 72 Hours (or 3 results) - Refreshable Recent Labs 02/06/19 1346 02/07/19 1705 02/08/19 0741 02/08/19 1239 NA 138 -- -- -- -- K 4.1 -- -- -- -- CL 102 -- -- -- -- BICARB 25 -- -- -- -- BUN 19 -- -- -- -- EGFRAFRICAN >60 -- -- -- -- CR 1.2 -- -- -- -- GLU 171* < > 150* 144* 145* CA 8.8 -- -- -- -- MG 2.1 -- -- -- -- < > = values in this interval not displayed. CBC with diff last 72 hours (or 3 results) - Refreshable Recent Labs 02/06/19 1346 WBC 6.80 HB 11.6* HCT 35.1* PLT 145* Assessment and Plan: #Lumbar DJD and radiculopathy Status post minimally invasive L4-S1 anterior posterior approach fusion by Dr. Finnegan on 02/03 C/w PT/OT Encouraged incentive spirometry. NSGY following Steroids being tapered #Postop urinary retention: NS team discussed the case with Dr. English with urology and he recommended Montano catheter. Flomax has been started. Montano came out last night and angelica ent is voiding w/o difficulty. #Opiate-induced constipation: Continue senna and MiraLAX. Enema was ordered by NS team. Bowel Movements today #Coronary artery disease with history of LAD stent placement in 2017: Continue metoprolol. No aspirin for now. Patient cannot tolerate statin. #Paroxysmal A. fib: Currently appears to be in sinus rhythm. Continue metoprolol. Continue to hold Eliquis and resume POD#7 #History of recurrent DVT unprovoked 1976 82 and unprovoked 2006 Currently Eliquis is on hold, should resume as soon as possible. Changed to Lovenox subQ p px dosing today per NSGY, POD#7 will resume Eliquis. #Obstructive sleep apnea: Patient using CPAP at bedtime #Hypertension: Currently stable, continue Toprol-XL and lisinopril #Hypothyroidism Continue Synthroid #DVT prophylaxis Transtioned to Lovenox prophylaxis per NSGY, resume NOAC POD#7 Nutrition: Regular diet Code status - Full Emergency Contact - Anticipated Discharge - Sunday to [facility] Chloe Osei, DO [facility] This note was written using the assistance of Dragon dictation software. I spent more than 35 minutes in the care of this patient with over 50% of my time face-to-f chris with the patient in evaluating and counseling, evaluating labs/images and other clinical data, as well as in coordination of care.Electronically signed by Chloe Osei DO at 01/15 10:01 PM Marvin Rodríguez MD - 02/08/2019 4:00 PM PDT Neurosurgery - Inpatient note Attd: Sanjay Finnegan MD History of Present Illness: Mr. Azevedo, a 74 y.o. male, who underwent the following on 02/03: 1. Minimally invasive L4-S1 fusion using anterior and posterior approaches 2. Posterolateral and posterior interbody arthrodesis L5-S1 3. Posterolateral lumbar arthrodesis L4-5 4. Anterior lumbar interbody arthrodesis L4-5 5. PEEK interbody spacer L4-5 and L5-S1 6. Posterior spinal instrumentation L4-S1 using Precept 7. L5 and partial S1 laminectomy, L5-S1 facetectomy, L5 and S1 foraminotomy for decompres becky of L5 and S1 nerves 8. Microsurgical technique with use of operating microscope 9. Allograft for arthrodesis. Surgery date: 02/03/2019 Montano spontaneously removed overnight. Patient ambulated to bathroom due to urge to void. Successful with voiding and did have BM as well. Pain controlled. Steroids tapering, BG c ontrolled Allergies Allergen Reactions Formaldehyde Dyspnea Iodinated Contrast Media Rash and Dyspnea Trouble Breathing Iodine Anaphylaxis Lovastatin Anaphylaxis, Diarrhea and Nausea and Vomiting Aches and pains Aches and pains Nut - Unspecified Dyspnea Seafood, shellfish Penicillins Unknown, Rash and Dyspnea Does not remember Sodium Chloride Dyspnea "hallogens" Hydrocodone-Acetaminophen Rash Does not remember Niacin Unknown Doesn't recall Povidone-Iodine Urticaria Sulfa (Sulfonamide Antibiotics) Unknown Current Facility-Administered Medications: acetaminophen (TYLENOL) tablet 650 mg, 650 mg, oral, Q6H PRN, Cosme Kenny PA-C, 650 mg at 02/08/19 1006 amitriptyline (ELAVIL) tablet 10 mg, 10 mg, oral, QPM, Perico Brown MD, 10 mg at 2110 bisacodyl (DULCOLAX) suppository 10 mg, 10 mg, rectal, DAILY PRN, Marvin Coburn MD dexAMETHasone (DECADRON) tablet 4 mg, 4 mg, oral, Q12H, Sanjay Finnegan MD dextrose (GLUTOSE) 40 % gel 15 g, 15 g, oral, PRN, Gianna Glynn MD dextrose 50 % in water IV 25 mL, 25 mL, intravenous, PRN, Gianna Glynn MD famotidine (PEPCID) tablet 20 mg, 20 mg, oral, BID, Sanjay Finnegan MD, 20 mg at 02/08/19 0956 glucagon (GLUCAGEN) injection 1 mg, 1 mg, intramuscular, PRN, Gianna Glynn MD heparin injection 5,000 Units, 5,000 Units, subcutaneous, Q12H (Scheduled), Perico Brown MD, 5,000 Units at 02/08/19 0957 hydrALAZINE (APRESOLINE) injection 10-20 mg, 10-20 mg, intravenous, Q10MIN PRN, Marvin atkins MD hydrocortisone 1 % cream, , topical, BID, Sanjay Finnegan MD HYDROmorphone (DILAUDID) injection 0.2-0.6 mg, 0.2-0.6 mg, intravenous, Q2H PRN, Marvin alvarez MD, 0.6 mg at 02/06/19 1017 insulin lispro (HUMALOG) injection 1-11 Units, 1-11 Units, subcutaneous, TID W/MEALS, Lion Davis MD, 1 Units at 02/08/19 0100 labetalol (TRANDATE) IV injection 10-20 mg, 10-20 mg, intravenous, Q10MIN PRN, Marvin roland MD lactobacillus rhamnosus (GG) (CULTURELLE) capsule 1 capsule, 1 capsule, oral, DAILY, Smitha Pagan RD, 1 capsule at 02/08/19 0956 levothyroxine tablet 50 mcg, 50 mcg, oral, BEFORE BREAKFAST, Marvin Coburn MD, 50 mcg at 1 0523 lisinopril (PRINIVIL) tablet 10 mg, 10 mg, oral, DAILY, Marvin Coburn MD, 10 mg at 9 0955 melatonin tablet 3 mg, 3 mg, oral, HS PRN, Marvin Coburn MD, 3 mg at 02/05/19 2158 methocarbamol (ROBAXIN) tablet 500 mg, 500 mg, oral, TID PRN, Marvin Coburn MD, 500 mg at 02/07/19 0759 metoclopramide HCl (REGLAN) injection 5-10 mg, 5-10 mg, intravenous, Q4H PRN, Marvin Coburn MD metoclopramide HCl (REGLAN) tablet 5-10 mg, 5-10 mg, oral, Q4H PRN, Marvin Coburn MD metoprolol succinate (TOPROL-XL) tablet 50 mg, 50 mg, oral, HS, Marvin Coburn MD, 50 mg at 02/07/19 2134 mineral oil (FLEET MINERAL OIL) rectal enema 133 mL, 133 mL, rectal, DAILY PRN, Cosme sifuentes PA-C, 133 mL at 02/06/19 1733 ondansetron (ZOFRAN) injection 4 mg, 4 mg, intravenous, Q8H PRN, Marvin Coburn MD ondansetron ODT (ZOFRAN ODT) tablet 8 mg, 8 mg, oral, Q8H PRN, Marvin Coburn MD oxyCODONE (immediate release) (ROXICODONE) tablet 5-15 mg, 5-15 mg, oral, Q3H PRN, Marvin hanna MD, 5 mg at 02/08/19 1006 polyethylene glycol (MIRALAX) packet 17 g, 17 g, oral, DAILY, Marvin Coburn MD, 17 g at 1008 polyethylene glycol (MIRALAX) packet 34 g, 34 g, oral, TID PRN, Marvin Coburn MD, 34 g at 02/07/19 2135 senna-docusate (SENOKOT S) 8.6-50 mg 2 tablet, 2 tablet, oral, BID, Marvin Coburn MD, 2 ta blet at 02/08/19 0956 tamsulosin (FLOMAX) capsule 0.4 mg, 0.4 mg, oral, DAILY, Cosme Kenyn PA-C, 0.4 mg at 1 0955 Labs: Lab Results Component Value Date WBC 6.80 02/06/2019 HB 11.6 02/06/2019 HCT 35.1 02/06/2019 PLT 145 02/06/2019 MCV 93.7 02/06/2019 RDW 13.3 02/06/2019 Lab Results Component Value Date NA 138 02/06/2019 K 4.1 02/06/2019 CL 102 02/06/2019 BICARB 25 02/06/2019 BUN 19 02/06/2019 CR 1.2 02/06/2019 GLU 145 02/08/2019 CA 8.8 02/06/2019 AST 28 02/06/2019 ALT 18 02/06/2019 AP 44 02/06/2019 TBILI 0.4 02/06/2019 TP 6.3 02/06/2019 ALB 3.2 02/06/2019 ANIONGAP 11 02/06/2019 Physical Exam: Last Vitals: BP 108/60 (BP Location: Right upper arm, Patient Position: Lying on back) | P ulse 84 | Temp 36.5 C (97.7 F) (Temporal) | Resp 20 | Ht 1.753 m (5' 9") | Wt 125.7 kg (277 lb 1.9 oz) | SpO2 94% | BMI 40.92 kg/m | BSA 2.47 m 24 Hour Vital Min/Max: Systolic (24hrs), Av , Min:104 , Max:127 Diastolic (24hrs), Av, Min:58, Max:71 Pulse Min: 75 Max: 114 Temp Min: 36.5 C (97.7 F) Max: 37.4 C (99.3 F) Resp Min: 20 Max: 20 SpO2 Min: 92 % Max: 95 % Intake/Output Summary (Last 24 hours) at 02/08/2019 1602 Last data filed at 02/08/2019 0927 Gross per 24 hour Intake 910 ml Output 200 ml Net 710 ml General: NAD, speech fluent, mood and behavior within normal limits Resp: non-labored Neurological: A&O X3. NAD. Interactive. Musculoskeletal: Gait: Not assessed. Tone: Normal tone in upper and lower extremities MOTOR SCORE RIGHT LEFT L2 (Hip Flex) 4+ 4+ L3 (Knee Ext) 5 5 L4 (Dorsiflexion) 5 5 L5 (EHL) 5 5 S1 (Plantar Flex) 5 5 Sensory: Sensation grossly intact to light touch BLE. Surgical Incisions: L flank incision benign, no shadowing. Posterior lumbar incisions clean dry and intact. Diagnostic Results: X-ray Spine Lumbosacral 2 Views Result Date: 02/04/2019 EXAM DESCRIPTION: X-RAY SPINE LUMBOSACRAL 2 VIEWS CLINICAL HISTORY: Postop L4-S1 fusion C OMPARISON: 11/19/2018. TECHNIQUE: Two views of the lower lumbar spine. FINDINGS: Right upp er are partially obscured on the lateral view. There is intact posterior fusion hardware at L4 through S1. Two surgical drains are seen on the left. Interbody spaces are present at the L3-4 and L4-5 levels. No gross fracture identified. Vertebral body heights appear maintaine d. IMPRESSION: Status post L4 through S1 discectomy and fusion. Signed By: Luis M Perdomo On 02/04/2019 08:13:21 Assessment: 1. Lumbar foraminal stenosis 2. Other idiopathic scoliosis, lumbar region 3. Other spondylosis with radiculopathy, lumbar region 4. 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 -Urology for urinary retention Post-op Imaging/Laboratory: -AP/Lateral Lumbar x rays on POD #0 Done Post-Op Hemodynamic Recommendations: -Keep SBP < 150 -Anti-hypertensives PRN Steroid Recommendations: -decadron taper Wound Care: -Keep the lumbar and left flank surgical site covered x 7-10 days then remove the dressing. NO chloroprep to the surgical site Pain/Sedation: -Scheduled Tylenol x 10 doses post-op -PRN robaxin -PRN oxycodone -PRN IV diladid Activity: -Up with assist with PT/OT. Encourage patient to be out of bed to chair. -Activity instructions: no strenuous exercise, no bending/twisting, lifting restricted to < 1/2 gallon of milk in weight -SCDs while in bed Diet/Bowel: -Diabetic diet. -Daily stool softeners to prevent constipation : -Mild urinary retention after removal of montano catheter. -Flomax 0.4 mg daily- Ordered. -Montano placement for 10 days for bladder rest and then voiding trial in their office at [facility] t time. No prophylactic abx indicated for Montano. -now voiding independently. Low threshold for straight cath if unable DVT (p): -Screening duplex US ordered -negative -start lovenox today. Hold oral anticoag until further notice Dispo planning: - SNF when ready. -Consult case management. Marvin Coburn MD Neurosurgery, PGY-4 4:04 PM 02/08/2019 Associated attestation - Jamie Deng MD - 02/08/2019 9:22 PM PDTNeurosurgery Attend ing I saw and performed a physical examination of the patient and discussed the patient's manag ement with Dr Coburn I reviewed Dr Coburn note and agree with the documented findings and pl an of care. Pt has been walking and US BLE neg for DVT DVT prophylaxis Jamie Deng MD [facility] Department of Neurological Sas Sql DeveloperBurning SupervisorMarvin Mckoy MD - 02/07/2019 8:07 PM PDTFormatting of this note sabine ht be different from the original. Neurosurgery - Inpatient note Attd: Sanjay Finnegan MD History of Present Illness: Mr. Azevedo, a 74 y.o. male, who underwent the following on 02/03: 1. Minimally invasive L4-S1 fusion using anterior and posterior approaches 2. Posterolateral and posterior interbody arthrodesis L5-S1 3. Posterolateral lumbar arthrodesis L4-5 4. Anterior lumbar interbody arthrodesis L4-5 5. PEEK interbody spacer L4-5 and L5-S1 6. Posterior spinal instrumentation L4-S1 using Precept 7. L5 and partial S1 laminectomy, L5-S1 facetectomy, L5 and S1 foraminotomy for decompres becky of L5 and S1 nerves 8. Microsurgical technique with use of operating microscope 9. Allograft for arthrodesis. Surgery date: 02/03/2019 Awake and alert this morning. Sitting up and eating breakfast independently. Pain control improving. Has yet to mobilize adequately Allergies Allergen Reactions Formaldehyde Dyspnea Iodinated Contrast Media Rash and Dyspnea Trouble Breathing Iodine Anaphylaxis Lovastatin Anaphylaxis, Diarrhea and Nausea and Vomiting Aches and pains Aches and pains Nut - Unspecified Dyspnea Seafood, shellfish Penicillins Unknown, Rash and Dyspnea Does not remember Sodium Chloride Dyspnea "hallogens" Hydrocodone-Acetaminophen Rash Does not remember Niacin Unknown Doesn't recall Povidone-Iodine Urticaria Sulfa (Sulfonamide Antibiotics) Unknown Current Facility-Administered Medications: acetaminophen (TYLENOL) tablet 650 mg, 650 mg, oral, Q6H PRN, Cosme Kenny PA-C, 650 mg at 02/07/19 0758 amitriptyline (ELAVIL) tablet 10 mg, 10 mg, oral, QPM, Perico Brown MD, 10 mg at 2012 bisacodyl (DULCOLAX) suppository 10 mg, 10 mg, rectal, DAILY PRN, Marvin Coburn MD [START ON 02/08/2019] dexamethasone (DECADRON) injection 4 mg, 4 mg, intravenous, Q12H, Kenyetta Osei DO dextrose (GLUTOSE) 40 % gel 15 g, 15 g, oral, PRN, Gianna Glynn MD dextrose 50 % in water IV 25 mL, 25 mL, intravenous, PRN, Gianna Glynn MD famotidine (PEPCID) tablet 20 mg, 20 mg, oral, BID, Sanjay Finnegan MD, 20 mg at 02/07/19 0758 glucagon (GLUCAGEN) injection 1 mg, 1 mg, intramuscular, PRN, Gianna Glynn MD heparin injection 5,000 Units, 5,000 Units, subcutaneous, Q12H (Scheduled), Perico Brown MD, 5,000 Units at 02/07/19 0759 hydrALAZINE (APRESOLINE) injection 10-20 mg, 10-20 mg, intravenous, Q10MIN PRN, Marvin atkins MD hydrocortisone 1 % cream, , topical, BID, Sanjay Finnegan MD HYDROmorphone (DILAUDID) injection 0.2-0.6 mg, 0.2-0.6 mg, intravenous, Q2H PRN, Marvin alvarez MD, 0.6 mg at 02/06/19 1017 insulin lispro (HUMALOG) injection 1-11 Units, 1-11 Units, subcutaneous, TID W/MEALS, Lion Davis MD, 1 Units at 02/07/19 1713 labetalol (TRANDATE) IV injection 10-20 mg, 10-20 mg, intravenous, Q10MIN PRN, Marvin roland MD lactobacillus rhamnosus (GG) (CULTURELLE) capsule 1 capsule, 1 capsule, oral, DAILY, Smitha Pagan, KAMLA, 1 capsule at 02/07/19 0758 levothyroxine tablet 50 mcg, 50 mcg, oral, BEFORE BREAKFAST, Marvin Coburn MD, 50 mcg at 1 0602 lisinopril (PRINIVIL) tablet 10 mg, 10 mg, oral, DAILY, Marvin Coburn MD, 10 mg at 9 0759 melatonin tablet 3 mg, 3 mg, oral, HS PRN, Marvin Coburn MD, 3 mg at 02/05/19 2158 methocarbamol (ROBAXIN) tablet 500 mg, 500 mg, oral, TID PRN, Marvin Cobrun MD, 500 mg at 02/07/19 075 metoclopramide HCl (REGLAN) injection 5-10 mg, 5-10 mg, intravenous, Q4H PRN, Marvin Coburn MD metoclopramide HCl (REGLAN) tablet 5-10 mg, 5-10 mg, oral, Q4H PRN, Marvin Coburn MD metoprolol succinate (TOPROL-XL) tablet 50 mg, 50 mg, oral, HS, Marvin Coburn MD, 50 mg at 02/05/19 215 mineral oil (FLEET MINERAL OIL) rectal enema 133 mL, 133 mL, rectal, DAILY PRN, Cosme sifuentes, MAKSIM-C, 133 mL at 02/06/19 1733 ondansetron (ZOFRAN) injection 4 mg, 4 mg, intravenous, Q8H PRN, Marvin Coburn MD ondansetron ODT (ZOFRAN ODT) tablet 8 mg, 8 mg, oral, Q8H PRN, Marvin Cobunr MD oxyCODONE (immediate release) (ROXICODONE) tablet 5-15 mg, 5-15 mg, oral, Q3H PRN, Marvin hanna MD, 15 mg at 02/07/19 1438 polyethylene glycol (MIRALAX) packet 17 g, 17 g, oral, DAILY, Marvin Coburn MD, 17 g at 0758 polyethylene glycol (MIRALAX) packet 34 g, 34 g, oral, TID PRN, Marvin Coburn MD, 34 g at 02/07/19 1438 senna-docusate (SENOKOT S) 8.6-50 mg 2 tablet, 2 tablet, oral, BID, Marvin Coburn MD, 2 ta blet at 02/07/19 0759 tamsulosin (FLOMAX) capsule 0.4 mg, 0.4 mg, oral, DAILY, Cosme Kenny PA-C, 0.4 mg at 1 0758 Labs: Lab Results Component Value Date WBC 6.80 02/06/2019 HB 11.6 02/06/2019 HCT 35.1 02/06/2019 PLT 145 02/06/2019 MCV 93.7 02/06/2019 RDW 13.3 02/06/2019 Lab Results Component Value Date NA 138 02/06/2019 K 4.1 02/06/2019 CL 102 02/06/2019 BICARB 25 02/06/2019 BUN 19 02/06/2019 CR 1.2 02/06/2019 GLU 150 02/07/2019 CA 8.8 02/06/2019 AST 28 02/06/2019 ALT 18 02/06/2019 AP 44 02/06/2019 TBILI 0.4 02/06/2019 TP 6.3 02/06/2019 ALB 3.2 02/06/2019 ANIONGAP 11 02/06/2019 Physical Exam: Last Vitals: BP 104/64 (BP Location: Right upper arm, Patient Position: Lying on back) | P ulse 79 | Temp 36.5 C (97.7 F) (Temporal) | Resp 20 | Ht 1.753 m (5' 9") | Wt 125.7 kg (277 lb 1.9 oz) | SpO2 95% | BMI 40.92 kg/m | BSA 2.47 m 24 Hour Vital Min/Max: Systolic (24hrs), Av , Min:94 , Max:118 Diastolic (24hrs), Av, Min:51, Max:77 Pulse Min: 67 Max: 90 Temp Min: 36 C (96.8 F) Max: 36.8 C (98.2 F) Resp Min: 20 Max: 20 SpO2 Min: 93 % Max: 96 % Intake/Output Summary (Last 24 hours) at 02/07/20192008 Last data filed at 02/07/2019 0900 Gross per 24 hour Intake 215 ml Output 1225 ml Net -1010 ml General: NAD, speech fluent, mood and behavior within normal limits Resp: non-labored Neurological: A&O X3. NAD. Interactive. Musculoskeletal: Gait: Not assessed. Tone: Normal tone in upper and lower extremities MOTOR SCORE RIGHT LEFT L2 (Hip Flex) 4+ 4+ L3 (Knee Ext) 5 5 L4 (Dorsiflexion) 5 5 L5 (EHL) 5 5 S1 (Plantar Flex) 5 5 Sensory: Sensation grossly intact to light touch BLE. Surgical Incisions: L flank incision benign, no shadowing. Posterior lumbar incisions clean dry and intact. Diagnostic Results: X-ray Spine Lumbosacral 2 Views Result Date: 02/04/2019 EXAM DESCRIPTION: X-RAY SPINE LUMBOSACRAL 2 VIEWS CLINICAL HISTORY: Postop L4-S1 fusion C OMPARISON: 11/19/2018. TECHNIQUE: Two views of the lower lumbar spine. FINDINGS: Right upp er are partially obscured on the lateral view. There is intact posterior fusion hardware at L4 through S1. Two surgical drains are seen on the left. Interbody spaces are present at the L3-4 and L4-5 levels. No gross fracture identified. Vertebral body heights appear maintaine d. IMPRESSION: Status post L4 through S1 discectomy and fusion. Signed By: Luis M Perdomo On 02/04/2019 08:13:21 Assessment: 1. Lumbar foraminal stenosis 2. Other idiopathic scoliosis, lumbar region 3. Other spondylosis with radiculopathy, lumbar region 4. 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 -Urology for urinary retention Post-op Imaging/Laboratory: -AP/Lateral Lumbar x rays on POD #0 Done Post-Op Hemodynamic Recommendations: -Keep SBP < 150 -Anti-hypertensives PRN Steroid Recommendations: -decadron taper Wound Care: -Keep the lumbar and left flank surgical site covered x 7-10 days then remove the dressing. NO chloroprep to the surgical site Pain/Sedation: -Scheduled Tylenol x 10 doses post-op -PRN robaxin -PRN oxycodone -PRN IV diladid Activity: -Up with assist with PT/OT. Encourage patient to be out of bed to chair. -Activity instructions: no strenuous exercise, no bending/twisting, lifting restricted to < 1/2 gallon of milk in weight -SCDs while in bed Diet/Bowel: -Diabetic diet. -Daily stool softeners to prevent constipation : -Mild urinary retention after removal of montano catheter. -Flomax 0.4 mg daily- Ordered. -Montano placement for 10 days for bladder rest and then voiding trial in their office at [place] t time. No prophylactic abx indicated for Montano. DVT (p): -Screening duplex US ordered -negative -History of DVT; start SQ heparin now that drain is out. Dispo planning: - SNF when ready. -Consult case management. Marvin Coburn MD Neurosurgery, PGY-4 8:12 PM 02/07/2019 Chloe roger, DO - 1 7:01 PM PDT Hospital Medicine Progress Note Hospital Day# 4 Interval Hx: Patient seen and examined at bedside, doing well. No complaints. Objective Vitals Last Vitals: BP 104/64 (BP Location: Right upper arm, Patient Position: Lying on back) | P ulse 79 | Temp 36.5 C (97.7 F) (Temporal) | Resp 20 | Ht 1.753 m (5' 9") | Wt 125.7 kg (277 lb 1.9 oz) | SpO2 95% | BMI 40.92 kg/m | BSA 2.47 m 24 Hour Vital Min/Max: Systolic (24hrs), Av , Min:94 , Max:118 Diastolic (24hrs), Av, Min:51, Max:77 Pulse Min: 67 Max: 90 Temp Min: 36 C (96.8 F) Max: 36.8 C (98.2 F) Resp Min: 20 Max: 20 SpO2 Min: 93 % Max: 96 % Intake/Output Summary (Last 24 hours) at 02/07/2019 1901 Last data filed at 02/07/2019 0900 Gross per 24 hour Intake 415 ml Output 1225 ml Net -810 ml Physical Exam General Appearance: no apparent distress Eyes: PERRLA, EOMI, normal conjunctiva, anicteric sclera HENT: moist mucous membranes, oropharynx clear Neck: supple, no lymphadenopathy, no thyromegaly, full range of motion Respiratory: Clear to auscultation without wheezes, rales, rhonchi, breathing comfortably o n room air Cardiovascular: Normal rate, regular rhythm without murmurs, rubs or gallops, radial pulses 2+ Gastrointestinal: Soft, diffusely tender, surgical incision site covered with dressing Extremities: Warm and well perfused, no edema Skin: No rashes Neurologic: Alert, answering questions appropriately, fluent speech, no facial droop, movin g all extremities spontaneously and against gravity Psych: cooperative and pleasant, well groomed Montano in place Laboratory Chemistries: Last 72 Hours (or 3 results) - Refreshable Recent Labs 02/06/19 1346 02/07/19 0735 02/07/19 1221 02/07/19 1705 NA 138 -- -- -- -- K 4.1 -- -- -- -- CL 102 -- -- -- -- BICARB 25 -- -- -- -- BUN 19 -- -- -- -- EGFRAFRICAN >60 -- -- -- -- CR 1.2 -- -- -- -- GLU 171* < > 190* 156* 150* CA 8.8 -- -- -- -- MG 2.1 -- -- -- -- < > = values in this interval not displayed. CBC with diff last 72 hours (or 3 results) - Refreshable Recent Labs 02/06/19 1346 WBC 6.80 HB 11.6* HCT 35.1* PLT 145* Assessment and Plan: Lumbar DJD and radiculopathy POA: Status post minimally invasive L4-S1 anterior posterior a pproach fusion by Dr. Finnegan on 02/03/2019 C/w PT/OT Encouraged incentive spirometry. NSGY following Steroids being tapered Postop delirium: Likely combination of hospital-acquired delirium, use of narcotics, urinar y retention and postop pain. Delirium has now completely resolved. C/w amitriptyline to 10 mg at bedtime Frequent reorientation. Family by the bedside. Encourage ambulation and PT OT #Postop urinary retention: NS team discussed the case with Dr. English with urology and he recommended Montano catheter. Flomax is already been started. Patient will need outpatien t follow-up with urology for voiding trial, appt made with Urology by NSGY #Opiate-induced constipation: Continue senna and MiraLAX. Enema was ordered by NS team. Passing flatus #Coronary artery disease with history of LAD stent placement in 2017: Continue metoprolol. No aspirin for now. Patient cannot tolerate statin. #Paroxysmal A. fib: Currently appears to be in sinus rhythm. Continue metoprolol. Continue to hold Eliquis and resume when okay with neurosurgery. 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 Awaiting to hear back fro m NSGY regarding this. #Obstructive sleep apnea: Patient using CPAP at bedtime #Hypertension: Currently stable, continue Toprol-XL and lisinopril #Hypothyroidism Continue Synthroid #DVT prophylaxis Heparin for now, awaiting to hear back from NSGY regarding Eliquis Nutrition: Regular diet Code status - Full Emergency Contact - Anticipated Discharge - 1-2 days to SNF Chloe Osei DO [facility] This note was written using the assistance of [employer] dictation software. I spent more than 35 minutes in the care of this patient with over 50% of my time face-to-f chris with the patient in evaluating and counseling, evaluating labs/images and other clinical data, as well as in coordination of care.Electronically signed by Chloe Osei DO at 01/15 7:14 PM June Huitron RN - 02/07/2019 2:28 PM PDTCase Management Discharge Need s Referrals for SNF rehab have been placed to [facility], [facility] and [facility]. All 3 faciliti es has accepted patient. Patient and his would like to go to [facility]. RNCM contacted [facility], and [facility] to advise that patient has elected to go to [facility] in [place] which is where he lives. Transportation discussed. Patient and have elected to use [facility] stretcher transpo rt. They are aware that they may be financially respondsive and [facility] Transport is tentatively scheduled for Sunday @ 9 am. RNCM left message for Mars @ [facility], about their ability to accept patie nt over the weekend. Arranged by: June Bell RN Radha Granda RN - 02/07/2019 10:00 AM PDTPt. C/o back discomfort this a.m. Pt. R eceived oxy mg along with tylenol and muscle relaxant. Pt. Request to be getting up multipl e times today if able. Ate % breakfast. No bm yet. Bowel meds given. at bedside. Pt . Verbalized understanding of POC today. Electronically signed by Radha Telles RN at 10:02 AM June Huitron RN - 02/06/2019 4:42 PM PDTCase Management Discharge Ne eds PT & OT are recommending SNF rehab. Patient is s/p Minimally invasive L4-S1 fusion using a nterior and posterior approaches. Patient is max assist of 1 or 2 in all Mobiity functions. RNCM met with patient and his . Patient lives in [facility]. They are agreeable to SNF rehab. Provided list of SNF facility in [facility] and [facility] as requested from Medicare.gov. Referrals sent to [facility], [facility] and [facility] Transitional care unit in [place]. Transport discussed with . Will need to determine if patient will require stretcher vs reclining w/c. Arranged by: June Bell RN onnoYue becerril, RD - 02/06/2019 3:02 PM PDTFormatting of this note might be diffe rent from the original. NUTRITION SCREEN NRS 2002 score of 2 indicates low nutrition status ADMISSION DATA Wt Readings from Last 4 Encounters: 02/03/19 125.7 kg (277 lb 1.9 oz) 01/23/19 126.4 kg (278 lb 10.6 oz) 01/23/19 126.6 kg (279 lb) 11/19/18 124 kg (273 lb 5.9 oz) Body mass index is 40.92 kg/m. Ht: 175 cm LABS Recent Labs 02/03/19201802/06/19 0731 02/06/19 0927 02/06/19 1346 GLU 145* < > 155* 166* 171* BUN 13 -- -- -- 19 CR 1.1 -- -- -- 1.2 NA 139 -- -- -- 138 K 4.6 -- -- -- 4.1 MG -- -- -- -- 2.1 < > = values in this interval not displayed. Lab Results Lab Test Name Results Date/Time A1C 6.6 01/23/19 TBILI 0.4 02/06/19 DIET INFORMATION Nutrition Orders (From admission to next 24h) Start Ordered 02/05/19 1045 DIET DIABETIC (CONSISTENT CARBOHYDRATE) Eff. Now DIET EFFECTIVE NOW 02/05/19 1041 Pt out of room for scan. Per pt he has a good appetite. He follows a regular diet at home and typically has good glucose control and was able to stop taking metformin. No diet education at this time. Pt states that he does not like yogurt and would not like kefi r probiotic. Culturelle ordered instead. ORDERS Culturelle probiotic d/t ABx protocol GOALS Achieve 80% of needs in 3 days MONITORING Po Intake and Labs Yue Pagan RD [employer] [facility] [address] [place] [id number] Hyazolbsjecojz signed by Yue Pagan RD at 02/06/2019 3:06 PM PDTGiles, Cosme Mahoney PA-C - 02/06/2019 1:49 PM PDTFormatting of this note might be different from latrice martin original. Neurosurgery - Follow Up Chief Complaint: Back Pain Referring Provider: Sanjay Finnegan MD History of Present Illness: Mr. Azevedo, a 74 y.o. male, was seen today for a neurosurgical follow up s/p: 1. Minimally invasive L4-S1 fusion using anterior and posterior approaches 2. Posterolateral and posterior interbody arthrodesis L5-S1 3. Posterolateral lumbar arthrodesis L4-5 4. Anterior lumbar interbody arthrodesis L4-5 5. PEEK interbody spacer L4-5 and L5-S1 6. Posterior spinal instrumentation L4-S1 using Precept 7. L5 and partial S1 laminectomy, L5-S1 facetectomy, L5 and S1 foraminotomy for decompres becky of L5 and S1 nerves 8. Microsurgical technique with use of operating microscope 9. Allograft for arthrodesis. Surgery date: 02/03/2019 He is wide awake this AM. He recalls the nature of his hospitalization unlike on previous mornings. His pain is better as well-he was started on steroids yesterday. He has not been able to void spontaneously. He has been straight cath'ed multiple times. No BM yet. He was very painful last night, perhaps some delirium. His BRIONNA drain was pulled out inadver tently. Allergies Allergen Reactions Formaldehyde Dyspnea Iodinated Contrast Media Rash and Dyspnea Trouble Breathing Iodine Anaphylaxis Lovastatin Anaphylaxis, Diarrhea and Nausea and Vomiting Aches and pains Aches and pains Nut - Unspecified Dyspnea Seafood, shellfish Penicillins Unknown, Rash and Dyspnea Does not remember Sodium Chloride Dyspnea "hallogens" Hydrocodone-Acetaminophen Rash Does not remember Niacin Unknown Doesn't recall Povidone-Iodine Urticaria Sulfa (Sulfonamide Antibiotics) Unknown Current Facility-Administered Medications: acetaminophen (TYLENOL) tablet 1,000 mg, 1,000 mg, oral, Q6H, Marvin Coburn MD, 1,000 mg at 02/06/19 1613 amitriptyline (ELAVIL) tablet 10 mg, 10 mg, oral, QPM, Perico Brown MD bisacodyl (DULCOLAX) suppository 10 mg, 10 mg, rectal, DAILY PRN, Marvin Coburn MD dexamethasone (DECADRON) injection 4 mg, 4 mg, intravenous, Q6H, Sanjay Finnegan MD, 4 mg at 1 1612 famotidine (PEPCID) tablet 20 mg, 20 mg, oral, BID, Sanjay Finnegan MD, 20 mg at 02/06/19 0924 heparin injection 5,000 Units, 5,000 Units, subcutaneous, Q12H (Scheduled), Perico Brown MD hydrALAZINE (APRESOLINE) injection 10-20 mg, 10-20 mg, intravenous, Q10MIN PRN, Marvin atkins MD hydrocortisone 1 % cream, , topical, BID, Sanjay Finnegan MD HYDROmorphone (DILAUDID) injection 0.2-0.6 mg, 0.2-0.6 mg, intravenous, Q2H PRN, Marvin alvarez MD, 0.6 mg at 02/06/19 1017 labetalol (TRANDATE) IV injection 10-20 mg, 10-20 mg, intravenous, Q10MIN PRN, Marvin roland MD lactobacillus rhamnosus (GG) (CULTURELLE) capsule 1 capsule, 1 capsule, oral, DAILY, Smitha Pagan RD, 1 capsule at 02/06/19 1613 levothyroxine tablet 50 mcg, 50 mcg, oral, BEFORE BREAKFAST, Marvin Coburn MD, 50 mcg at 1 0922 lisinopril (PRINIVIL) tablet 10 mg, 10 mg, oral, DAILY, Marvin Coburn MD, 10 mg at 9 0923 melatonin tablet 3 mg, 3 mg, oral, HS PRN, Marvin Coburn MD, 3 mg at 02/05/19 2158 methocarbamol (ROBAXIN) tablet 500 mg, 500 mg, oral, TID PRN, Marvin Coburn MD, 500 mg at 02/06/19 1327 metoclopramide HCl (REGLAN) injection 5-10 mg, 5-10 mg, intravenous, Q4H PRN, Marvin Coburn MD metoclopramide HCl (REGLAN) tablet 5-10 mg, 5-10 mg, oral, Q4H PRN, Marvin Coburn MD metoprolol succinate (TOPROL-XL) tablet 50 mg, 50 mg, oral, HS, Marvin Coburn MD, 50 mg at 02/05/19 215 mineral oil (FLEET MINERAL OIL) rectal enema 133 mL, 133 mL, rectal, DAILY PRN, Cosme sifuentes PA-C, 133 mL at 02/06/19 1733 ondansetron (ZOFRAN) injection 4 mg, 4 mg, intravenous, Q8H PRN, Marvin Coburn MD ondansetron ODT (ZOFRAN ODT) tablet 8 mg, 8 mg, oral, Q8H PRN, Marvin Coburn MD oxyCODONE (immediate release) (ROXICODONE) tablet 5-15 mg, 5-15 mg, oral, Q3H PRN, Marvin hanna MD, 10 mg at 02/06/19 1327 polyethylene glycol (MIRALAX) packet 17 g, 17 g, oral, DAILY, Marvin Coburn MD, 17 g at 0926 polyethylene glycol (MIRALAX) packet 34 g, 34 g, oral, TID PRN, Marvin Coburn MD senna-docusate (SENOKOT S) 8.6-50 mg 2 tablet, 2 tablet, oral, BID, Marvin Coburn MD, 2 ta blet at 02/06/19 0920 tamsulosin (FLOMAX) capsule 0.4 mg, 0.4 mg, oral, DAILY, Cosme Kenny PA-C, 0.4 mg at 1 0918 Past Medical History: Diagnosis Date Arthritis Bleeding tendency (HCC) BP (high blood pressure) Diabetes (HCC) Heart disease High cholesterol Sleep apnea Thyroid disorder Past Surgical History Procedure Laterality Date Knee surgery 2013, 2015 Total replacement of left shoulder joint Femur surgery Left 1977 Coronary stent placement 2017 Social History Tobacco Use Smoking status: Former Smoker Last attempt to quit: 1990 Years since quittin.8 Smokeless tobacco: Never Used Substance Use Topics Alcohol use: Not Currently FamilyHistory Family History Problem Relation Hypertension Mother Heart Disease Mother Cancer Mother Diabetes Mother Heart Attack Father Arthritis Sister Atrial fibrillation Sister No Known Problems Brother Lung Cancer Sister Labs: Lab Results Component Value Date WBC 6.80 02/06/2019 HB 11.6 02/06/2019 HCT 35.1 02/06/2019 PLT 145 02/06/2019 MCV 93.7 02/06/2019 RDW 13.3 02/06/2019 Lab Results Component Value Date NA 138 02/06/2019 K 4.1 02/06/2019 CL 102 02/06/2019 BICARB 25 02/06/2019 BUN 19 02/06/2019 CR 1.2 02/06/2019 GLU 155 02/06/2019 CA 8.8 02/06/2019 AST 28 02/06/2019 ALT 18 02/06/2019 AP 44 02/06/2019 TBILI 0.4 02/06/2019 TP 6.3 02/06/2019 ALB 3.2 02/06/2019 ANIONGAP 11 02/06/2019 Physical Exam: Last Vitals: BP 100/60 (BP Location: Right lower arm, Patient Position: Lying on back) | P ulse 98 | Temp 36.7 C (98.1 F) | Resp 20 | Ht 1.753 m (5' 9") | Wt 125.7 kg (277 lb 1.9 oz) | SpO2 95% | BMI 40.92 kg/m | BSA 2.47 m 24 Hour Vital Min/Max: Systolic (24hrs), Av , Min:100 , Max:129 Diastolic (24hrs), Av, Min:60, Max:79 Pulse Min: 82 Max: 108 Temp Min: 36.5 C (97.7 F) Max: 37.3 C (99.1 F) Resp Min: 16 Max: 20 SpO2 Min: 88 % Max: 97 % Intake/Output Summary (Last 24 hours) at 02/06/2019 1825 Last data filed at 02/06/2019 1135 Gross per 24 hour Intake 530 ml Output 1420 ml Net -890 ml General: NAD, speech fluent, mood and behavior within normal limits Resp: non-labored, on O2 by nasal cannula. Neurological: A&O X3. NAD. Interactive. Musculoskeletal: Gait: Not assessed. Tone: Normal tone in upper and lower extremities MOTOR SCORE LEFT RIGHT L2 (Hip Flex) 4+ 4+ L3 (Knee Ext) 5 5 L4 (Dorsiflexion) 5 5 L5 (EHL) 4 4 S1 (Plantar Flex) 4+ 4+ Sensory: Sensation grossly intact to light touch BLE. Surgical Incisions: L flank incision benign, no shadowing. Posterior lumbar incisions clean dry and intact. Diagnostic Results: X-ray Spine Lumbosacral 2 Views Result Date: 02/04/2019 EXAM DESCRIPTION: X-RAY SPINE LUMBOSACRAL 2 VIEWS CLINICAL HISTORY: Postop L4-S1 fusion C OMPARISON: 11/19/2018. TECHNIQUE: Two views of the lower lumbar spine. FINDINGS: Right upp er are partially obscured on the lateral view. There is intact posterior fusion hardware at L4 through S1. Two surgical drains are seen on the left. Interbody spaces are present at the L3-4 and L4-5 levels. No gross fracture identified. Vertebral body heights appear maintaine d. IMPRESSION: Status post L4 through S1 discectomy and fusion. Signed By: Luis M Perdomo On 02/04/2019 08:13:21 Assessment: 1. Lumbar foraminal stenosis 2. Other idiopathic scoliosis, lumbar region 3. Other spondylosis with radiculopathy, lumbar region 4. 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 Post-op Imaging/Laboratory: -AP/Lateral Lumbar x rays on POD #1 Done Post-Op Hemodynamic Recommendations: -Keep SBP < 150 -Anti-hypertensives PRN Steroid Recommendations: -Not indicated Wound Care: -Keep the lumbar and left flank surgical site covered x 7-10 days then remove the dressing. NO chloroprep to the surgical site Pain/Sedation: -Scheduled Tylenol x 10 doses post-op -PRN robaxin -PRN oxycodone -PRN IV diladid Activity: -Up with assist with PT/OT. Encourage patient to be out of bed to chair. -Activity instructions: no strenuous exercise, no bending/twisting, lifting restricted to < 1/2 gallon of milk in weight -SCDs while in bed Diet/Bowel: -Diabetic diet. -Daily stool softeners to prevent constipation : -Mild urinary retention after removal of montano catheter. -Bladder scan, straight cath PRN for discomfort. -Flomax 0.4 mg daily- Ordered. -Discussed with Urology this afternoon. Will order Montano placement for 10 days for bladder rest and then voiding trial in their office at that time. No prophylactic abx indicated fo r Montano. DVT (p): -LMWH currently contraindicated -Screening duplex US ordered -negative -History of DVT; start SQ heparin now that drain is out. Dispo planning: - SNF when ready. -Consult case management. COSME KENNY PA-C [facility] Neurosurgery [address] [place] [id number] Associated attestation - Jamie Deng MD - 02/06/2019 9:08 PM PDTNeurosurgery Attend ing I saw and performed a physical examination of the patient and discussed the patient's manag ement with MAKSIM Kenny. I reviewed MAKSIM Kenny note and agree with the documented findings and yanci n of care. Jamie Deng MD [facility] Department of Neurological [employer] Sql DeveloperBurning Supervisor Josee Wilson RN - 02/06/2019 2:00 AM PDTWife left beside as patient appears to be comfo rtable and resting. Pain currently controlled with IV dilaudid and first dose of IV decadron . Patient aroused with gentle touch. Bed alarm placed. aJosee bullard RN - 02/05/2019 9:37 PM PDTPatient confused /disoriented. Patient found attempting to get OOB, talking to self and BRIONNA pulled out by angelica ent. Patient complaining of excruciating pain, stated "the pain is killing me". Patient also reported bladder discomfort simultaneously. Straight cath inserted d/t discomfort, 700ml da rk urine noted. Dr. Finnegan made aware, orders to continue pain medications given. jaida murphy, will be in to stay overnight at bedside. Electronically signed by Josee Wilson RN at 9:48 PM PDTLadiGladys dougherty PA-C - 02/05/2019 10:51 AM PDT Neurosurgery - Follow Up Chief Complaint: Back Pain Referring Provider: Sanjay Finnegan MD History of Present Illness: Mr. Azevedo, a 74 y.o. male, was seen today for a neurosurgical follow up s/p: 1. Minimally invasive L4-S1 fusion using anterior and posterior approaches 2. Posterolateral and posterior interbody arthrodesis L5-S1 3. Posterolateral lumbar arthrodesis L4-5 4. Anterior lumbar interbody arthrodesis L4-5 5. PEEK interbody spacer L4-5 and L5-S1 6. Posterior spinal instrumentation L4-S1 using Precept 7. L5 and partial S1 laminectomy, L5-S1 facetectomy, L5 and S1 foraminotomy for decompress ion of L5 and S1 nerves 8. Microsurgical technique with use of operating microscope 9. Allograft for arthrodesis. Surgery date: 02/03/2019 Patient is awake and alert at present. Earlier this morning he was drowsy and had trouble p articipating in the exam. At present he is fully engaged. He complains of low back and franco- incisional pain, mild tingling in the lower extremities. Pain control is marginal. His is present and she endorses that he has had trouble emptying his bladder since the montano was removed. He required straight cath. He has been passing gas but has not yet had a BM. He is in bed right now and has not been up with therapy yet today. Notes from yesterday sug gest he did not ambulate. Allergies Allergen Reactions Formaldehyde Dyspnea Iodinated Contrast Media Rash and Dyspnea Trouble Breathing Iodine Anaphylaxis Lovastatin Anaphylaxis, Diarrhea and Nausea and Vomiting Aches and pains Aches and pains Nut - Unspecified Dyspnea Seafood, shellfish Penicillins Unknown, Rash and Dyspnea Does not remember Sodium Chloride Dyspnea "hallogens" Hydrocodone-Acetaminophen Rash Does not remember Niacin Unknown Doesn't recall Povidone-Iodine Urticaria Sulfa (Sulfonamide Antibiotics) Unknown Current Facility-Administered Medications Medication Dose Route Frequency Provider Last Rate Last Dose acetaminophen (TYLENOL) tablet 1,000 mg 1,000 mg oral Q6H Marvin Coburn MD 1,000 mg at 02/05/19526 amitriptyline (ELAVIL) tablet 75 mg 75 mg oral QPM Marvin Coburn MD 75 mg at 1952 bisacodyl (DULCOLAX) suppository 10 mg 10 mg rectal DAILY PRN Marvin Coburn MD ciprofloxacin (CIPRO) IV 400 mg in D5W (RTU) 400 mg intravenous Q12H Sanjay Finnegan MD Stopped at 02/05/19 0953 hydrALAZINE (APRESOLINE) injection 10-20 mg 10-20 mg intravenous Q10MIN PRN Marvin lavarez MD hydrocortisone 0.5 % cream topical BID Cosme Kenny PA-C HYDROmorphone (DILAUDID) injection 0.2-0.6 mg 0.2-0.6 mg intravenous Q2H PRN Marvin Quiñonez MD 0.6 mg at 02/04/191949 labetalol (TRANDATE) IV injection 10-20 mg 10-20 mg intravenous Q10MIN PRN Marvin atkins MD levothyroxine tablet 50 mcg 50 mcg oral BEFORE BREAKFAST Marvin Coburn MD 50 mcg at 02/05/19526 lisinopril (PRINIVIL) tablet 10 mg 10 mg oral DAILY Marvin Coburn MD 10 mg at 02/05 0850 melatonin tablet 3 mg 3 mg oral HS PRN Marvin Coburn MD 3 mg at 02/03/192130 methocarbamol (ROBAXIN) tablet 500 mg 500 mg oral TID PRN Marvin Coburn MD 500 mg a t 10/22/19 1953 metoclopramide HCl (REGLAN) injection 5-10 mg 5-10 mg intravenous Q4H PRN Marvin roland MD metoclopramide HCl (REGLAN) tablet 5-10 mg 5-10 mg oral Q4H PRN Marvin Coburn MD metoprolol succinate (TOPROL-XL) tablet 50 mg 50 mg oral HS Marvin Coburn MD 50 mg at 02/04/19 2135 ondansetron (ZOFRAN) injection 4 mg 4 mg intravenous Q8H PRN Marvin Coburn MD ondansetron ODT (ZOFRAN ODT) tablet 8 mg 8 mg oral Q8H PRN Marvin Coburn MD oxyCODONE (immediate release) (ROXICODONE) tablet 5-15 mg 5-15 mg oral Q3H PRN Marvin Coburn MD 10 mg at 02/05/19 0527 polyethylene glycol (MIRALAX) packet 17 g 17 g oral DAILY Marvin Coburn MD 17 g at 02/05/19 0850 polyethylene glycol (MIRALAX) packet 34 g 34 g oral TID PRN Marvin Coburn MD senna-docusate (SENOKOT S) 8.6-50 mg 2 tablet 2 tablet oral BID Marvin Coburn MD 2 tablet at 02/05/19 0850 tamsulosin (FLOMAX) capsule 0.4 mg 0.4 mg oral DAILY Cosme Kenny PA-C Past Medical History: Diagnosis Date Arthritis Bleeding tendency (HCC) BP (high blood pressure) Diabetes (HCC) Heart disease High cholesterol Sleep apnea Thyroid disorder Past Surgical History Procedure Laterality Date Knee surgery 2013, 2015 Total replacement of left shoulder joint Femur surgery Left 1977 Coronary stent placement 2017 Social History Tobacco Use Smoking status: Former Smoker Last attempt to quit: 1990 Years since quittin.8 Smokeless tobacco: Never Used Substance Use Topics Alcohol use: Not Currently Family History Problem Relation Hypertension Mother Heart Disease Mother Cancer Mother Diabetes Mother Heart Attack Father Arthritis Sister Atrial fibrillation Sister No Known Problems Brother Lung Cancer Sister Labs: POC glucose: 105 Physical Exam: BP 124/68 (BP Location: Left upper arm, Patient Position: Lying on back) | Pulse 99 | Tem p 37 C (98.6 F) (Temporal) | Resp 18 | Ht 1.753 m (5' 9") | Wt 125.7 kg (277 lb 1.9 o z) | SpO2 95% | BMI 40.92 kg/m | BSA 2.47 m Body mass index is 40.92 kg/m. General: NAD, speech fluent, mood and behavior within normal limits Resp: non-labored, on O2 by nasal cannula. Neurological: A&O to person, date, 's birthday, anniversary, follows simple and complex commands easi ly. Musculoskeletal: Gait: Not assessed. Tone: Normal tone in upper and lower extremities MOTOR SCORE LEFT RIGHT L2 (Hip Flex) 4+ 4+ L3 (Knee Ext) 5 5 L4 (Dorsiflexion) 5 5 L5 (EHL) 4 4 S1 (Plantar Flex) 4+ 4+ Sensory: Sensation grossly intact to light touch BLE. Surgical Incisions: L flank incision benign, no shadowing. Drain output <10 ml, drain remov ed from left flank and Tegaderm applied. Posterior lumbar incisions clean dry and intact. Dr sandoval output about 30 ml last 8 hrs, serosanguinous. Diagnostic Results: X-ray Spine Lumbosacral 2 Views Result Date: 02/04/2019 EXAM DESCRIPTION: X-RAY SPINE LUMBOSACRAL 2 VIEWS CLINICAL HISTORY: Postop L4-S1 fusion C OMPARISON: 11/19/2018. TECHNIQUE: Two views of the lower lumbar spine. FINDINGS: Right upp er are partially obscured on the lateral view. There is intact posterior fusion hardware at L4 through S1. Two surgical drains are seen on the left. Interbody spaces are present at the L3-4 and L4-5 levels. No gross fracture identified. Vertebral body heights appear maintaine d. IMPRESSION: Status post L4 through S1 discectomy and fusion. Signed By: Luis M Perdomo On 02/04/2019 08:13:21 Assessment: 1. Lumbar foraminal stenosis 2. Other idiopathic scoliosis, lumbar region 3. Other spondylosis with radiculopathy, lumbar region 4. 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 Post-op Imaging/Laboratory: -AP/Lateral Lumbar x rays on POD #1 Done Post-Op Hemodynamic Recommendations: -Keep SBP < 150 -Anti-hypertensives PRN Steroid Recommendations: -Not indicated Wound Care: -Keep the lumbar and left flank surgical site covered x 7-10 days then remove the dressing. NO chloroprep to the surgical site -BRIONNA drain to bulb suction. Measure and record the BRIONNA drain output every 8 hours. Pain/Sedation: -Scheduled Tylenol x 10 doses post-op -PRN robaxin -PRN oxycodone -PRN IV diladid Activity: -Up with assist with PT/OT. Encourage patient to be out of bed to chair. -Activity instructions: no strenuous exercise, no bending/twisting, lifting restricted to < 1/2 gallon of milk in weight -SCDs while in bed Diet/Bowel: -General diet changed to diabetic diet. -Daily stool softeners to prevent constipation : -Mild urinary retention after removal of montano catheter. -Bladder scan, straight cath PRN for discomfort. -Flomax 0.4 mg daily- Ordered. DVT (p): -LMWH currently contraindicated -Screening duplex US ordered on HD # 7 -History of DVT, will discuss starting Lovenox with Dr Finnegan. Dispo planning: - SNF when ready. -Consult case management. Gladys Motta PA-C [facility] [address] [address] Apolonia Pickard RN - 02/04/2019 1:07 PM PDTCase Management Initial Assessment Reason for Admission: XLIF L4-5/TLIF L5-S1 with L4-S1 posterior fusion on 02/03/2019 Admitted From: Home Emergency Contact: Extended Emergency Contact Information Primary Emergency Contact: JASMIN AZEVEDO Mobile Relation: Spouse Past Medical History: M51.36 (ICD-10-CM) - 722.52 (ICD-9-CM) Lumbar degenerative disc disea se M99.83 (ICD-10-CM) - 724.02 (ICD-9-CM) Lumbar foraminal stenosis M41.26 (ICD-10-CM) - 737 .30 (ICD-9-CM) Other idiopathic scoliosis, lumbar region M47.26 (ICD-10-CM) - 721.3 (ICD-9-C M) Other spondylosis with radiculopathy, lumbar region, EXTREME LATERAL INTERBODY FUSION Lives With: spouse Living Arrangement: house Functional Level Prior to Admission: 0-->independent Transportation Available: family or friend will provide Equipment Currently used at Home/DME Provider: CPAP Home Health/Infusion Agency: N/A Insurance/Funding: @[email or web address], Assessment: Antonio Azevedo is a 74 y.o. male HD#1 with lumbar DDD, L4-S1 foraminal stenosi s, degenerative scoliosis s/p L4-5 XLIF/L5-S1 TLIF/L4-S1 PIF on 02/03/19. Spoke with patient and Jasmin [phone] at bedside. The plan is to discharge home when he is medically stable. Due to the long drive home, the patient and his will staying in a hotel for a night or two to break up the length of driving. At home there are three steps to get into e house and he has a walk in shower. He uses a CPAP at home and states that he has other med ical equipment such as a front wheel walker from previous surgeries that he can use if neede d. Anticipated Discharge Needs: To be determined Anticipated Discharge Disposition: home Assessment done by: Apolonia Shultz RN Marvin Rodríguez MD - 02/04/2019 7:54 AM PDT NEUROSURGERY PROGRESS NOTE INTERVAL UPDATE: OR yesterday for L4-5 XLIF, L5-S1 TLIF Afebrile overnight TMax 37.[address] BRIONNA outputs since OR: flank=50, risl=419 OBJECTIVE: Last 24 hour min/max Temp: 37.7 C (99.9 F) Temp Min: 35.9 C (96.6 F) Max: 37.9 C (100.2 F) Pulse: 104 Pulse Min: 78 Max: 104 Resp: 20 Resp Min: 16 Max: 20 BP: 112/66 BP Min: 112/66 Max: 153/79 SpO2: 93 % SpO2 Min: 89 % Max: 99 % Body mass index is 40.92 kg/m. I/O/Drains Current Shift I/O/Drains Last 3 Completed Shifts No intake/output data recorded. 02/03 0701 - 02/04 07 In: 4253.8 [P.O.:600; I.V.:3653.8] Out: 1410 [Urine:1250; Drains:160] No data recorded No data recorded Labs: Complete Blood Count/Coags No results for input(s): WBC, HB, HCT, PLT in the last 8640 hours. Invalid input(s): INR CSF Results No results for input(s): WBCCSF, RBCCSF, GLUCOSECSF, PROTEINCSF in the last 8640 hours. Chemistry Recent Labs 02/03/19 0747 02/03/19201802/04/19 0604 NA -- 139 -- K -- 4.6 -- CL -- 106 -- BICARB -- 29 -- BUN -- 13 -- CR -- 1.1 -- GLU 135* 145* 133* CA -- 8.3* -- Culture Results CULTURE RESULT MRSA/MSSA (no units) Date Value 01/23/2019 No Methicillin Resistant Staph aureus (MRSA) or Methicillin Susceptible Staph aureus (MSSA ) isolated. No results found for: APTT, FIBRINOGEN No results found for: RBCCSF, WBCCSF, PROTEINCSF, GLUCOSECSF, CSFAPP NEUROLOGICAL EXAM: Awake, alert, oriented Speech fluent, answers appropriately Conj gaze Face symmetric BUE spont Pain limited L HF as expected, 5/5 all else RLE 5/5 HF/KE/DF/EHL/PF SILT Incisions clean/dry/intact ASSESSMENT/PLAN: Antonio Azevedo is a 74 y.o. male HD#1 with lumbar DDD, L4-S1 foraminal stenosis, degenerat meghann scoliosis s/p L4-5 XLIF/L5-S1 TLIF/L4-S1 PIF on 02/03/19 Neurosurgery Post-Op Plan of Care Keep montano and BRIONNA drains for now Encourage incentive spirometry Post-Op Abx: -vanco/cipro Post-op Imaging/Laboratory: -post op Xrays obtained in PACU Post-Op Hemodynamic Recommendations: -Keep SBP < 140 -MAP > 65 -anti-hypertensives PRN Seizure prophylaxis: -n/a Steroid Recommendations: -Not indicated Wound Care: -closed with dermabond, no wound care needed. Change bandaids if soiled or saturated -BRIONNA drain to bulb suction. Measure and record the BRIONNA drain output every 8 hours Pain/Sedation: -Scheduled Tylenol -PRN robaxin -PRN oxycodone -PRN morphine Activity: -Up with assist, brace when oob -Activity instructions: no strenuous exercise, no bending/twisting, lifting restricted to < 1/2 gallon of milk in weight -SCDs while in bed Diet/Bowel: -General diet -Daily stool softeners to prevent constipation DVT (p): -LMWH currently contraindicated -Screening duplex on HD # 7 if remains in house Dispo planning: - pending clinical course Marvin Coburn MD Neurosurgery, PGY-4 7:54 AM 02/04/2019 Nisa Nolasco RN - 8:30 AM PDTIV started but unable to draw sample for T&Sc confirmatory. Lab called . [id number] Lab here to draw spec. Call placed into the [place] to report patient's yeast areas, additional order received. 6274 Fluconazole hung. P DTdocumented in this encounter Plan of Treatment +--------+---------+ + + + | Date | Type | Specialty | Care Team | Description | +--------+---------+ + + + | 02/28/ | Office | Neurological Surgery | Cosme Kenny, | | | 2018 | Visit | | PA-Cachorro [address] | | | | | | [place], [place] | | | | | | [phone] | | | | | | | | +--------+---------+ + + + documented as of this encounter Procedures + +--------+ + + + | Procedure Name | Priori | Date/Time | Associated Diagnosis | Comments | | | ty | | | | + +--------+ + + + | GLUCOSE, POC | Routin | 02/10/2019 | Lumbar | Results for this | | | e | 7:34 AM | degenerative disc | procedure are in the | | | | PDT | disease | results section. | + +--------+ + + + | GLUCOSE, POC | Routin | 02/09/2019 | Lumbar | Results for this | | | e | 5:57 PM | degenerative disc | procedure are in the | | | | PDT | disease | results section. | + +--------+ + + + | GLUCOSE, POC | Routin | 02/09/2019 | Lumbar | Results for this | | | e | 1:15 PM | degenerative disc | procedure are in the | | | | PDT | disease | results section. | + +--------+ + + + | GLUCOSE, POC | Routin | 02/09/2019 | Lumbar | Results for this | | | e | 7:36 AM | degenerative disc | procedure are in the | | | | PDT | disease | results section. | + +--------+ + + + | GLUCOSE, POC | Routin | 02/08/2019 | Lumbar | Results for this | | | e | 9:29 PM | degenerative disc | procedure are in the | | | | PDT | disease | results section. | + +--------+ + + + | GLUCOSE, POC | Routin | 02/08/2019 | Lumbar | Results for this | | | e | 5:04 PM | degenerative disc | procedure are in the | | | | PDT | disease | results section. | + +--------+ + + + | GLUCOSE, POC | Routin | 02/08/2019 | Lumbar | Results for this | | | e | 12:39 PM | degenerative disc | procedure are in the | | | | PDT | disease | results section. | + +--------+ + + + | GLUCOSE, POC | Routin | 02/08/2019 | Lumbar | Results for this | | | e | 7:41 AM | degenerative disc | procedure are in the | | | | PDT | disease | results section. | + +--------+ + + + | GLUCOSE, POC | Routin | 02/07/2019 | Lumbar | Results for this | | | e | 5:05 PM | degenerative disc | procedure are in the | | | | PDT | disease | results section. | + +--------+ + + + | GLUCOSE, POC | Routin | 02/07/2019 | Lumbar | Results for this | | | e | 12:21 PM | degenerative disc | procedure are in the | | | | PDT | disease | results section. | + +--------+ + + + | GLUCOSE, POC | Routin | 02/07/2019 | Lumbar | Results for this | | | e | 7:35 AM | degenerative disc | procedure are in the | | | | PDT | disease | results section. | + +--------+ + + + | GLUCOSE, POC | Routin | 02/06/2019 | Lumbar | Results for this | | | e | 10:09 PM | degenerative disc | procedure are in the | | | | PDT | disease | results section. | + +--------+ + + + | GLUCOSE, POC | Routin | 02/06/2019 | Chronic deep vein | Results for this | | | e | 3:11 PM | thrombosis (DVT) of | procedure are in the | | | | PDT | femoral vein of left | results section. | | | | | lower extremity | | | | | | (HCC) | | + +--------+ + + + | EKG, ADULT - TUALITY | Routin | 02/06/2019 | | Results for this | | ONLY | e | 3:07 PM | | procedure are in the | | | | PDT | | results section. | + +--------+ + + + | X-RAY CHEST 1 VIEW | Routin | 02/06/2019 | | Results for this | | | e | 2:51 PM | | procedure are in the | | | | PDT | | results section. | + +--------+ + + + | US LOWER EXTREMITY | Routin | 02/06/2019 | | Results for this | | VENOUS DUPLEX | e | 2:35 PM | | procedure are in the | | BILATERAL | | PDT | | results section. | + +--------+ + + + | CBC (HEMOGRAM) ONLY | Routin | 02/06/2019 | | Results for this | | | e | 1:46 PM | | procedure are in the | | | | PDT | | results section. | + +--------+ + + + | COMPLETE METABOLIC | Routin | 02/06/2019 | | Results for this | | SET | e | 1:46 PM | | procedure are in the | | (NA,K,CL,CO2,BUN,CRE | | PDT | | results section. | | AT,GLUC,CA,AST,ALT,B | | | | | | [place] TOTAL,ALK | | | | | | PHOS,ALB,PROT TOTAL) | | | | | + +--------+ + + + | CBC ONLY | Routin | 02/06/2019 | | Results for this | | | e | 1:46 PM | | procedure are in the | | | | PDT | | results section. | + +--------+ + + + | MAGNESIUM, PLASMA | Routin | 02/06/2019 | | Results for this | | | e | 1:46 PM | | procedure are in the | | | | PDT | | results section. | + +--------+ + + + | CULTURE, URINE | Routin | 02/06/2019 | | Results for this | | | e | 12:15 PM | | procedure are in the | | | | PDT | | results section. | + +--------+ + + + | UA, DIPSTICK ONLY | Routin | 02/06/2019 | | Results for this | | | e | 12:15 PM | | procedure are in the | | | | PDT | | results section. | + +--------+ + + + | URINE, MICROSCOPIC | Routin | 02/06/2019 | | Results for this | | EXAM | e | 12:15 PM | | procedure are in the | | | | PDT | | results section. | + +--------+ + + + | URINE SCREEN FOR | Routin | 02/06/2019 | | Results for this | | CULTURE | e | 12:15 PM | | procedure are in the | | | | PDT | | results section. | + +--------+ + + + | GLUCOSE, POC | Routin | 02/06/2019 | Lumbar foraminal | Results for this | | | e | 9:27 AM | stenosis | procedure are in the | | | | PDT | | results section. | + +--------+ + + + | GLUCOSE, POC | Routin | 02/06/2019 | Lumbar foraminal | Results for this | | | e | 7:31 AM | stenosis | procedure are in the | | | | PDT | | results section. | + +--------+ + + + | GLUCOSE, POC | Routin | 02/05/2019 | Lumbar foraminal | Results for this | | | e | 5:45 AM | stenosis | procedure are in the | | | | PDT | | results section. | + +--------+ + + + | GLUCOSE, POC | Routin | 02/04/2019 | Lumbar foraminal | Results for this | | | e | 6:04 AM | stenosis | procedure are in the | | | | PDT | | results section. | + +--------+ + + + | BASIC METABOLIC SET | Routin | 02/03/2019 | | Results for this | | (NA, K, CL, TCO2, | e | 8:19 PM | | procedure are in the | | BUN, CR, GLU, CA) | | PDT | | results section. | + +--------+ + + + | X-RAY SPINE | Routin | 02/03/2019 | | Results for this | | LUMBOSACRAL 2 VIEWS | e | 5:08 PM | | procedure are in the | | | | PDT | | results section. | + +--------+ + + + | X-RAY FLUOROSCOPY > | Routin | 02/03/2019 | | Results for this | | 1 HOUR | e | 4:25 PM | | procedure are in the | | | | PDT | | results section. | + +--------+ + + + | EXTREME LATERAL | Electi | 02/03/2019 | M51.36 (ICD-10-CM) | | | INTERBODY FUSION | ve | 11:25 AM | - 722.52 (ICD-9-CM) | | | | Surgic | PDT | Lumbar degenerative | | | | al | | disc disease | | | | | | M99.83 (ICD-10-CM) - | | | | | | 724.02 (ICD-9-CM) | | | | | | Lumbar foraminal | | | | | | stenosis M41.26 | | | | | | (ICD-10-CM) - 737.30 | | | | | | (ICD-9-CM) Other | | | | | | idiopathic | | | | | | scoliosis, lumbar | | | | | | region M47.26 | | | | | | (ICD-10-CM) - 721.3 | | | | | | (ICD-9-CM) Other | | | | | | spondylosis with | | | | | | radiculopathy, | | | | | | lumbar region | | + +--------+ + + + | CONFIRMATORY ABO/RH | Routin | 02/03/2019 | | Results for this | | | e | 8:51 AM | | procedure are in the | | | | PDT | | results section. | + +--------+ + + + | GLUCOSE, POC | Routin | 02/03/2019 | Lumbar foraminal | Results for this | | | e | 7:47 AM | stenosis | procedure are in the | | | | PDT | | results section. | + +--------+ + + + | CARDIOLOGY | | 02/03/2019 | | Results for this | | | | 12:00 AM | | procedure are in the | | | | PDT | | results section. | + +--------+ + + + documented in this encounter Results GLUCOSE, POC (02/10/2019 7:34 AM PDT) + +---------+ + + + | Component | Value | Ref Range | Performed | Pathologist | | | | | At | Signature | + +---------+ + + + | BLOOD | 114 (H) | 60 - 99 mg/dL | [facility] | | | GLUCOSE, | | | INPATIENT - | | | POC | | | POINT OF | | | | | | CARE | | + +---------+ + + + + + | Specimen | + + | Blood | + + + +---------+ + + | Performing | Address | City/State/Zipcode | Phone Number | | Organization | | | | + +---------+ + + | [facility] | | | | | - POINT OF CARE | | | | + +---------+ + + GLUCOSE, POC (02/09/2019 5:57 PM PDT) + +-------+ + + + | Component | Value | Ref Range | Performed | Pathologist | | | | | At | Signature | + +-------+ + + + | BLOOD | 94 | 60 - 99 mg/dL | [facility] | | | GLUCOSE, | | | INPATIENT - | | | POC | | | POINT OF | | | | | | CARE | | + +-------+ + + + + + | Specimen | + + | Blood | + + + +---------+ + + | Performing | Address | City/State/Zipcode | Phone Number | | Organization | | | | + +---------+ + + | [facility] | | | | | - POINT OF CARE | | | | + +---------+ + + GLUCOSE, POC (02/09/2019 1:15 PM PDT) + +-------+ + + + | Component | Value | Ref Range | Performed | Pathologist | | | | | At | Signature | + +-------+ + + + | BLOOD | 96 | 60 - 99 mg/dL | [facility] | | | GLUCOSE, | | | INPATIENT - | | | POC | | | POINT OF | | | | | | CARE | | + +-------+ + + + + + | Specimen | + + | Blood | + + + +---------+ + + | Performing | Address | City/State/Zipcode | Phone Number | | Organization | | | | + +---------+ + + | [facility] | | | | | - POINT OF CARE | | | | + +---------+ + + GLUCOSE, POC (02/09/2019 7:36 AM PDT) + +-------+ + + + | Component | Value | Ref Range | Performed | Pathologist | | | | | At | Signature | + +-------+ + + + | BLOOD | 85 | 60 - 99 mg/dL | [facility] | | | GLUCOSE, | | | INPATIENT - | | | POC | | | POINT OF | | | | | | CARE | | + +-------+ + + + + + | Specimen | + + | Blood | + + + +---------+ + + | Performing | Address | City/State/Zipcode | Phone Number | | Organization | | | | + +---------+ + + | [facility] | | | | | - POINT OF CARE | | | | + +---------+ + + GLUCOSE, POC (02/08/2019 9:29 PM PDT) + +---------+ + + + | Component | Value | Ref Range | Performed | Pathologist | | | | | At | Signature | + +---------+ + + + | BLOOD | 146 (H) | 60 - 99 mg/dL | [facility] | | | GLUCOSE, | | | INPATIENT - | | | POC | | | POINT OF | | | | | | CARE | | + +---------+ + + + + + | Specimen | + + | Blood | + + + +---------+ + + | Performing | Address | City/State/Zipcode | Phone Number | | Organization | | | | + +---------+ + + | [facility] | | | | | - POINT OF CARE | | | | + +---------+ + + GLUCOSE, POC (02/08/2019 5:04 PM PDT) + +---------+ + + + | Component | Value | Ref Range | Performed | Pathologist | | | | | At | Signature | + +---------+ + + + | BLOOD | 110 (H) | 60 - 99 mg/dL | [facility] | | | GLUCOSE, | | | INPATIENT - | | | POC | | | POINT OF | | | | | | CARE | | + +---------+ + + + + + | Specimen | + + | Blood | + + + +---------+ + + | Performing | Address | City/State/Zipcode | Phone Number | | Organization | | | | + +---------+ + + | [facility] | | | | | - POINT OF CARE | | | | + +---------+ + + GLUCOSE, POC (02/08/2019 12:39 PM PDT) + +---------+ + + + | Component | Value | Ref Range | Performed | Pathologist | | | | | At | Signature | + +---------+ + + + | BLOOD | 145 (H) | 60 - 99 mg/dL | [facility] | | | GLUCOSE, | | | INPATIENT - | | | POC | | | POINT OF | | | | | | CARE | | + +---------+ + + + + + | Specimen | + + | Blood | + + + +---------+ + + | Performing | Address | City/State/Zipcode | Phone Number | | Organization | | | | + +---------+ + + | [facility] | | | | | - POINT OF CARE | | | | + +---------+ + + GLUCOSE, POC (02/08/2019 7:41 AM PDT) + +---------+ + + + | Component | Value | Ref Range | Performed | Pathologist | | | | | At | Signature | + +---------+ + + + | BLOOD | 144 (H) | 60 - 99 mg/dL | [facility] | | | GLUCOSE, | | | INPATIENT - | | | POC | | | POINT OF | | | | | | CARE | | + +---------+ + + + + + | Specimen | + + | Blood | + + + +---------+ + + | Performing | Address | City/State/Zipcode | Phone Number | | Organization | | | | + +---------+ + + | [facility] | | | | | - POINT OF CARE | | | | + +---------+ + + GLUCOSE, POC (02/07/2019 5:05 PM PDT) + +---------+ + + + | Component | Value | Ref Range | Performed | Pathologist | | | | | At | Signature | + +---------+ + + + | BLOOD | 150 (H) | 60 - 99 mg/dL | [facility] | | | GLUCOSE, | | | INPATIENT - | | | POC | | | POINT OF | | | | | | CARE | | + +---------+ + + + + + | Specimen | + + | Blood | + + + +---------+ + + | Performing | Address | City/State/Zipcode | Phone Number | | Organization | | | | + +---------+ + + | [facility] | | | | | - POINT OF CARE | | | | + +---------+ + + GLUCOSE, POC (02/07/2019 12:21 PM PDT) + +---------+ + + + | Component | Value | Ref Range | Performed | Pathologist | | | | | At | Signature | + +---------+ + + + | BLOOD | 156 (H) | 60 - 99 mg/dL | [facility] | | | GLUCOSE, | | | INPATIENT - | | | POC | | | POINT OF | | | | | | CARE | | + +---------+ + + + + + | Specimen | + + | Blood | + + + +---------+ + + | Performing | Address | City/State/Zipcode | Phone Number | | Organization | | | | + +---------+ + + | [facility] | | | | | - POINT OF CARE | | | | + +---------+ + + GLUCOSE, POC (02/07/2019 7:35 AM PDT) + +---------+ + + + | Component | Value | Ref Range | Performed | Pathologist | | | | | At | Signature | + +---------+ + + + | BLOOD | 190 (H) | 60 - 99 mg/dL | [facility] | | | GLUCOSE, | | | INPATIENT - | | | POC | | | POINT OF | | | | | | CARE | | + +---------+ + + + + + | Specimen | + + | Blood | + + + +---------+ + + | Performing | Address | City/State/Zipcode | Phone Number | | Organization | | | | + +---------+ + + | [facility] | | | | | - POINT OF CARE | | | | + +---------+ + + GLUCOSE, POC (02/06/2019 10:09 PM PDT) + +---------+ + + + | Component | Value | Ref Range | Performed | Pathologist | | | | | At | Signature | + +---------+ + + + | BLOOD | 233 (H) | 60 - 99 mg/dL | [facility] | | | GLUCOSE, | | | INPATIENT - | | | POC | | | POINT OF | | | | | | CARE | | + +---------+ + + + + + | Specimen | + + | Blood | + + + +---------+ + + | Performing | Address | City/State/Zipcode | Phone Number | | Organization | | | | + +---------+ + + | [facility] | | | | | - POINT OF CARE | | | | + +---------+ + + GLUCOSE, POC (02/06/2019 3:11 PM PDT) + +---------+ + + + | Component | Value | Ref Range | Performed | Pathologist | | | | | At | Signature | + +---------+ + + + | BLOOD | 155 (H) | 60 - 99 mg/dL | [facility] | | | GLUCOSE, | | | INPATIENT - | | | POC | | | POINT OF | | | | | | CARE | | + +---------+ + + + + + | Specimen | + + | Blood | + + + +---------+ + + | Performing | Address | City/State/Zipcode | Phone Number | | Organization | | | | + +---------+ + + | [facility] | | | | | - POINT OF CARE | | | | + +---------+ + + EKG, ADULT - [facility] ONLY (02/06/2019 3:07 PM PDT) + + + + + + | Component | Value | Ref Range | Performed | Pathologist | | | | | At | Signature | + + + + + + | EKG | Test Reason :Blood | | [facility] - | | | DIAGNOSIS | Pressure : */* mmHGVent. | | CARDIOLOGY | | | | Rate : 094 BPM | | | | | | Atrial Rate : 094 BPMP-R | | | | | | Int : 138 ms | | | | | | QRS Dur : 086 msQT | | | | | | Int : 358 ms | | | | | | P-R-T Axes : 042 044 063 | | | | | | degreesQTc Int : 447 | | | | | | msNormal sinus | | | | | | rhythmNormal ECGNo | | | | | | previous ECGs | | | | | | availableConfirmed by | | | | | | Reji Jaffe | | | | | | ([id number]) on 02/06/2019 | | | | | | 4:43:56 PMReferred By: | | | | | | | | | | | | Finalized By:Reji Carlton | | | | | | Ld | | | | + + + + + + + + | Specimen | + + | | + + + + + | Narrative | Performed At | + + + | | | + + + + +---------+ + + | Performing | Address | City/State/Zipcode | Phone Number | | Organization | | | | + +---------+ + + | [facility] | | | | [facility] | | | | + +---------+ + + X-RAY CHEST 1 VIEW (02/06/2019 2:51 PM PDT) + + | Specimen | + + | | + + + + + | Narrative | Performed At | + + + | EXAM DESCRIPTION: X-RAY CHEST 1 VIEW CLINICAL HISTORY: | [facility] | | Hypoxia. COMPARISON: None. TECHNIQUE: One view(s). | RADIOLOGY VOICE | | FINDINGS: The heart size is normal. Basilar atelectasis accentuated | RECOGNITION | | by small lung volume. No consolidation, pleural effusion or | | | pneumothorax. Postop change of both shoulders. Mild osteopenia. | | | IMPRESSION: Bibasilar atelectasis. Signed By: Sunday Monaco | | | Emily Staff Radiologist On 02/06/2019 15:00:13 | | + + + + -------+ | Procedure Note | + -------+ | Service Account, [employer] In Interface - 02/06/2019 3:03 PM PDT EXAM | | DESCRIPTION:X-RAY CHEST 1 VIEW CLINICAL HISTORY:Hypoxia. COMPARISON:None. TECHNIQUE:One | | view(s). FINDINGS:The heart size is normal. Basilar atelectasis accentuated by small | | lung volume. No consolidation,pleural effusion or pneumothorax. Postop change of both | | shoulders. Mild osteopenia. IMPRESSION:Bibasilar atelectasis. Signed By: Sunday Monaco | Caden Diaz Staff Radiologist On 02/06/2019 15:00:13 | |COMPARISON: | |None. | | | |TECHNIQUE: | |One view(s). | | | |FINDINGS: | |The heart size is normal. Basilar atelectasis accentuated by small lung volume. No consolid ation, | |pleural effusion or pneumothorax. Postop change of both shoulders. Mild osteopenia. | | | |IMPRESSION: | |Bibasilar atelectasis. | | | | | |Signed By: Sunday Monaco M.D. Staff Radiologist On 02/06/2019 15:00:13 | + -------+ + + + + + | Performing | Address | City/State/Zipcode | Phone Number | | Organization | | | | + + + + + | [facility] | [address] | [place] [address] | [phone] | | VOICE RECOGNITION | | | | + + + + + US DUPLEX LOWER EXTREMITY VENOUS BILATERAL (02/06/2019 2:35 PM PDT) + + | Specimen | + + | | + + + + + | Narrative | Performed At | + + + | EXAM DESCRIPTION: US DUPLEX LOWER EXTREMITY VENOUS BILATERAL | [facility] | | CLINICAL HISTORY: Leg pain. History of DVT. COMPARISON: None. | RADIOLOGY VOICE | | TECHNIQUE: Flynn-scale, color Doppler and spectral analysis of the | RECOGNITION | | both lower extremity venous structures has been performed. | | | FINDINGS: The common femoral, superficial femoral and popliteal | | | veins, as well as calf veins, are normally compressible, with no | | | associated filling defects identified suggestive of thrombus. Normal | | | phasic and symmetric flow of the common femoral veins. No evidence | | | of superficial thrombophlebitis. IMPRESSION: No evidence of deep | | | venous thrombosis. Signed By: Sunday Monaco M.D. Staff | | | Radiologist On 02/06/2019 14:51:53 | | + + + + --------+ | Procedure Note | + --------+ | Service Account, [employer] In Interface - 02/06/2019 2:55 PM PDT EXAM | | DESCRIPTION:US DUPLEX LOWER EXTREMITY VENOUS BILATERAL CLINICAL HISTORY:Leg pain. | | History of DVT. COMPARISON:None. TECHNIQUE:Flynn-scale, color Doppler and spectral | | analysis of the both lower extremity venous structures hasbeen performed. FINDINGS:The | | common femoral, superficial femoral and popliteal veins, as well as calf veins, are | | normallycompressible, with no associated filling defects identified suggestive of | | thrombus. Normal phasicand symmetric flow of the common femoral veins. No evidence of | | superficial thrombophlebitis. IMPRESSION:No evidence of deep venous thrombosis. Signed | | By: Sunday Monaco M.D. Staff Radiologist On 02/06/2019 14:51:53 | |TECHNIQUE: | |Flynn-scale, color Doppler and spectral analysis of the both lower extremity venous structur es has | |been performed. | | | |FINDINGS: | |The common femoral, superficial femoral and popliteal veins, as well as calf veins, are nor kay | |compressible, with no associated filling defects identified suggestive of thrombus. Normal phasic | |and symmetric flow of the common femoral veins. No evidence of superficial thrombophlebitis . | | | |IMPRESSION: | |No evidence of deep venous thrombosis. | | | | | |Signed By: Sunday Monaco M.D. Staff Radiologist On 02/06/2019 14:51:53 | + --------+ + + + + + | Performing | Address | City/State/Zipcode | Phone Number | | Organization | | | | + + + + + | [facility] | [address] | [place] [address] | [phone] | | VOICE RECOGNITION | | | | + + + + + CBC (HEMOGRAM) ONLY (02/06/2019 1:46 PM PDT) + + + + + + | Component | Value | Ref Range | Performed | Pathologist | | | | | At | Signature | + + + + + + | WHITE CELL | 6.80 | 3.50 - 10.80 | [facility] | | | COUNT | | K/cu mm | [facility] | | + + + + + + | RED CELL | 3.75 (L) | 4.50 - 6.00 | [facility] | | | COUNT | | M/cu mm | [facility] | | + + + + + + | HEMOGLOBIN | 11.6 (L) | 13.5 - 17.5 | [facility] | | | | | g/dL | [facility] | | + + + + + + | HEMATOCRIT | 35.1 (L) | 41.0 - 53.0 % | [facility] | | | | | | [facility] | | + + + + + + | MCV | 93.7 | 80.0 - 100.0 fL | [facility] | | | | | | [facility] | | + + + + + + | MCH | 30.8 | 27.0 - 34.0 pg | [facility] | | | | | | [facility] | | + + + + + + | MCHC | 32.9 (L) | 33.0 - 35.5 | [facility] | | | | | g/dL | [facility] | | + + + + + + | RDW | 13.3 | 11.5 - 14.5 % | [facility] | | | | | | [facility] | | + + + + + + | PLATELET | 145 (L) | 150 - 400 K/cu | [facility] | | | COUNT | | mm | [facility] | | + + + + + + | MPV | 8.6 | 7.4 - 10.4 fL | [facility] | | | | | | [facility] | | + + + + + + + + | Specimen | + + | Blood - Blood | | (substance) | + + + + + | Narrative | Performed At | + + + | No reflex rules apply to this test. | | | | [facility] | | | [facility] | + + + + + + + + | Performing | Address | City/State/Zipcode | Phone Number | | Organization | | | | + + + + + | [facility] | [address] | [place] [address] | | | LAB | | | | + + + + + MAGNESIUM, PLASMA (02/06/2019 1:46 PM PDT) + +-------+ + + + | Component | Value | Ref Range | Performed | Pathologist | | | | | At | Signature | + +-------+ + + + | MAGNESIUM,P | 2.1 | 1.6 - 2.6 mg/dL | [facility] | | | LASMA | | | [facility] | | + +-------+ + + + + + | Specimen | + + | Blood - Blood | | (substance) | + + + + + + + | Performing | Address | City/State/Zipcode | Phone Number | | Organization | | | | + + + + + | [facility] | [address] | [place] [address] | | | LAB | | | | + + + + + COMPLETE METABOLIC SET (NA,K,CL,CO2,BUN,CREAT,GLUC,CA,AST,ALT,BILI TOTAL,ALK PHOS,ALB,PROT TOTAL) (02/06/2019 1:46 PM PDT) + +---------+ + + + | Component | Value | Ref Range | Performed | Pathologist | | | | | At | Signature | + +---------+ + + + | GLUCOSE, | 171 (H) | 70 - 99 mg/dL | [facility] | | | PLASMA | | | [facility] | | | (LAB) | | | | | + +---------+ + + + | BUN, PLASMA | 19 | 6 - 20 mg/dL | [facility] | | | (LAB) | | | [facility] | | + +---------+ + + + | CREATININE, | 1.2 | 0.6 - 1.3 mg/dL | [facility] | | | PLASMA | | | [facility] | | + +---------+ + + + | SODIUM, | 138 | 136 - 145 | [facility] | | | PLASMA | | mmol/L | [facility] | | | (LAB) | | | | | + +---------+ + + + | POTASSIUM, | 4.1 | 3.4 - 5.0 | [facility] | | | PLASMA | | mmol/L | [facility] | | | (LAB) | | | | | + +---------+ + + + | CHLORIDE, | 102 | 97 - 108 mmol/L | [facility] | | | PLASMA | | | [facility] | | | (LAB) | | | | | + +---------+ + + + | TOTAL CO2, | 25 | 21 - 32 mmol/L | [facility] | | | PLASMA | | | [facility] | | | (LAB) | | | | | + +---------+ + + + | CALCIUM, | 8.8 | 8.6 - 10.2 | [facility] | | | PLASMA | | mg/dL | [facility] | | | (LAB) | | | | | + +---------+ + + + | BILIRUBIN | 0.4 | 0.3 - 1.2 mg/dL | [facility] | | | TOTAL | | | [facility] | | + +---------+ + + + | TOTAL | 6.3 (L) | 6.4 - 8.2 g/dL | [facility] | | | PROTEIN, | | | [facility] | | | PLASMA | | | | | | (LAB) | | | | | + +---------+ + + + | ALBUMIN, | 3.2 (L) | 3.5 - 5.2 g/dL | [facility] | | | PLASMA | | | [facility] | | | (LAB) | | | | | + +---------+ + + + | ALK PHOS | 44 | 34 - 104 U/L | [facility] | | | | | | [facility] | | + +---------+ + + + | AST(SGOT) | 28 | 13 - 39 U/L | [facility] | | | | | | [facility] | | + +---------+ + + + | ALT (SGPT) | 18 | 7 - 52 U/L | [facility] | | | | | | [facility] | | + +---------+ + + + | EGFR | >60 | >60 mL/min | [facility] | | | - | | | [facility] | | | BRITISH | | | | | + +---------+ + + + | EGFR NON | 59 (L) | >60 mL/min | [facility] | | | -MICHAEL | | | [facility] | | | RICAN | | | | | + +---------+ + + + | ANION GAP | 11 | 4 - 11 mmol/L | [facility] | | | | | | [facility] | | + +---------+ + + + | BUN/CREATIN | 16 | 8 - 25 | [facility] | | | INE RATIO | | | [facility] | | + +---------+ + + + | GLOBULIN | 3.1 | 2.3 - 3.5 gm/dL | [facility] | | | LVL | | | [facility] | | + +---------+ + + + | ALBUMIN/JESI | 1.0 | 0.9 - 2.0 | [facility] | | | BULIN RATIO | | | [facility] | | + +---------+ + + + + + | Specimen | + + | Blood - Blood | | (substance) | + + + + + | Narrative | Performed At | + + + | GFR is estimated using the MDRD equation recommended by the National | | | Kidney Disease Education Program. Estimated GFR Interpretive | [facility] | | Information: <60 mL/min/1.73 sq m Chronic Kidney | [facility] | | Disease <15 mL/min/1.73 sq m Kidney Failure | | | Estimated GFR greater than 60 mL/min/1.73 sq m is of limited clinical | | | value. The MDRD equation is not valid in the following situations: | | | - Patients under 18 years of age - Severe malnutrition or obesity | | | - Vegetarian diet - Rapidly changing kidney function - Amputees, | | | paraplegics, or other muscle-wasting diseases | | + + + + + + + + | Performing | Address | City/State/Zipcode | Phone Number | | Organization | | | | + + + + + | [facility] | [address] | [place] [address] | | | LAB | | | | + + + + + CULTURE, URINE (02/06/2019 12:15 PM PDT) + + + + + + | Component | Value | Ref Range | Performed | Pathologist | | | | | At | Signature | + + + + + + | CULTURE | No Growth | | [facility] | | | RESULT | | | [facility] | | | URINE | | | | | + + + + + + + + | Specimen | + + | Urine - Catheter - | | straight | + + + + + + + | Performing | Address | City/State/Zipcode | Phone Number | | Organization | | | | + + + + + | [facility] | [address] | [place] [address] | | | LAB | | | | + + + + + UA, DIPSTICK ONLY (02/06/2019 12:15 PM PDT) + + + + + + | Component | Value | Ref Range | Performed | Pathologist | | | | | At | Signature | + + + + + + | COLOR(UR) | Yellow | Colorless, | [facility] | | | | | Straw, Yellow, | [facility] | | | | | [place] | | | + + + + + + | APPEARANCE | Clear | Clear | [facility] | | | | | | [facility] | | + + + + + + | GLUCOSE(UR) | Negative | Negative mg/dL | [facility] | | | | | | [facility] | | + + + + + + | PROTEIN(LAB | Negative | Negative mg/dL | [facility] | | | ) | | | [facility] | | + + + + + + | BILIRUBIN | Negative | Negative | [facility] | | | | | | [facility] | | + + + + + + | UROBILINOGE | Normal | Normal mg/dL | [facility] | | | N | | | [facility] | | + + + + + + | PH(UR) | 5.0 | 5.0 - 9.0 | [facility] | | | | | | [facility] | | + + + + + + | BLOOD | Large (A) | Negative | [facility] | | | | | | [facility] | | + + + + + + | KETONES | 20.0 (A) | Negative mg/dL | [facility] | | | | | | [facility] | | + + + + + + | NITRITES | Negative | Negative | [facility] | | | | | | [facility] | | + + + + + + | LEUKOCYTE | Negative | Negative | [facility] | | | ESTERASE | | | [facility] | | + + + + + + | SPECIFIC | 1.019 | 1.003 - 1.029 | [facility] | | | GRAVITY | | | [facility] | | + + + + + + + + | Specimen | + + | Urine - Catheter - | | straight | + + + + + + + | Performing | Address | City/State/Zipcode | Phone Number | | Organization | | | | + + + + + | [facility] | [address] | [place] [address] | | | LAB | | | | + + + + + URINE, MICROSCOPIC EXAM (02/06/2019 12:15 PM PDT) + +---------+ + + + | Component | Value | Ref Range | Performed | Pathologist | | | | | At | Signature | + +---------+ + + + | RED CELLS | 2 | 0 - 5 /hpf | [facility] | | | | | | [facility] | | + +---------+ + + + | WHITE CELLS | 3 | 0 - 5 /hpf | [facility] | | | | | | [facility] | | + +---------+ + + + | BACTERIA | Few (A) | None /hpf | [facility] | | | | | | [facility] | | + +---------+ + + + | YEAST (LAB) | | | [facility] | | | | | | [facility] | | + +---------+ + + + | MUCOUS | Few | None, Few /hpf | [facility] | | | | | | [facility] | | + +---------+ + + + | TRICHOMONAS | | | [facility] | | | | | | [facility] | | + +---------+ + + + | TRIPLE P04 | | | [facility] | | | CRYSTALS | | | [facility] | | + +---------+ + + + | CALCIUM | | | [facility] | | | OXALATE | | | [facility] | | | FIONA | | | | | + +---------+ + + + | URIC ACID | | | [facility] | | | [facility] | | | [facility] | | + +---------+ + + + | AMORPHOUS | | | [facility] | | | CRYSTALS | | | [facility] | | + +---------+ + + + | SQUAMOUS | Few | None, Few /hpf | [facility] | | | EPITHELIAL | | | [facility] | | + +---------+ + + + + + | Specimen | + + | Urine - Catheter - | | straight | + + + + + + + | Performing | Address | City/State/Zipcode | Phone Number | | Organization | | | | + + + + + | [facility] | [address] | [place] [address] | | | LAB | | | | + + + + + URINE SCREEN FOR CULTURE (02/06/2019 12:15 PM PDT) + + + + + + | Component | Value | Ref Range | Performed | Pathologist | | | | | At | Signature | + + + + + + | URINE | Sent for Culture (A) | Negative | [facility] | | | SCREEN FOR | | | [facility] | | | CULTURE | | | | | + + + + + + + + | Specimen | + + | Urine - Catheter - | | straight | + + + + + | Narrative | Performed At | + + + | Culture Screen Negative. Culture not indicated. Culture Screen | | | Positive, specimen sent for culture. | [facility] | | | [facility] | + + + + + + + + | Performing | Address | City/State/Zipcode | Phone Number | | Organization | | | | + + + + + | [facility] | [address] | [place] [address] | | | LAB | | | | + + + + + GLUCOSE, POC (02/06/2019 9:27 AM PDT) + +---------+ + + + | Component | Value | Ref Range | Performed | Pathologist | | | | | At | Signature | + +---------+ + + + | BLOOD | 166 (H) | 60 - 99 mg/dL | [facility] | | | GLUCOSE, | | | INPATIENT - | | | POC | | | POINT OF | | | | | | CARE | | + +---------+ + + + + + | Specimen | + + | Blood | + + + +---------+ + + | Performing | Address | City/State/Zipcode | Phone Number | | Organization | | | | + +---------+ + + | [facility] | | | | | - POINT OF CARE | | | | + +---------+ + + GLUCOSE, POC (02/06/2019 7:31 AM PDT) + +---------+ + + + | Component | Value | Ref Range | Performed | Pathologist | | | | | At | Signature | + +---------+ + + + | BLOOD | 155 (H) | 60 - 99 mg/dL | [facility] | | | GLUCOSE, | | | INPATIENT - | | | POC | | | POINT OF | | | | | | CARE | | + +---------+ + + + + + | Specimen | + + | Blood | + + + +---------+ + + | Performing | Address | City/State/Zipcode | Phone Number | | Organization | | | | + +---------+ + + | [facility] | | | | | - POINT OF CARE | | | | + +---------+ + + GLUCOSE, POC (02/05/2019 5:45 AM PDT) + +---------+ + + + | Component | Value | Ref Range | Performed | Pathologist | | | | | At | Signature | + +---------+ + + + | BLOOD | 105 (H) | 60 - 99 mg/dL | [facility] | | | GLUCOSE, | | | INPATIENT - | | | POC | | | POINT OF | | | | | | CARE | | + +---------+ + + + + + | Specimen | + + | Blood | + + + +---------+ + + | Performing | Address | City/State/Zipcode | Phone Number | | Organization | | | | + +---------+ + + | [facility] | | | | | - POINT OF CARE | | | | + +---------+ + + GLUCOSE, POC (02/04/2019 6:04 AM PDT) + +---------+ + + + | Component | Value | Ref Range | Performed | Pathologist | | | | | At | Signature | + +---------+ + + + | BLOOD | 133 (H) | 60 - 99 mg/dL | [facility] | | | GLUCOSE, | | | INPATIENT - | | | POC | | | POINT OF | | | | | | CARE | | + +---------+ + + + + + | Specimen | + + | Blood | + + + +---------+ + + | Performing | Address | City/State/Zipcode | Phone Number | | Organization | | | | + +---------+ + + | [facility] | | | | | - POINT OF CARE | | | | + +---------+ + + BASIC METABOLIC SET (NA, K, CL, TCO2, BUN, CR, GLU, CA) (02/03/2019 8:19 PM PDT) + +---------+ + + + | Component | Value | Ref Range | Performed | Pathologist | | | | | At | Signature | + +---------+ + + + | GLUCOSE, | 145 (H) | 70 - 99 mg/dL | [facility] | | | PLASMA | | | [facility] | | | (LAB) | | | | | + +---------+ + + + | BUN, PLASMA | 13 | 6 - 20 mg/dL | [facility] | | | (LAB) | | | [facility] | | + +---------+ + + + | CREATININE, | 1.1 | 0.6 - 1.3 mg/dL | [facility] | | | PLASMA | | | [facility] | | + +---------+ + + + | SODIUM, | 139 | 136 - 145 | [facility] | | | PLASMA | | mmol/L | [facility] | | | (LAB) | | | | | + +---------+ + + + | POTASSIUM, | 4.6 | 3.4 - 5.0 | [facility] | | | PLASMA | | mmol/L | [facility] | | | (LAB) | | | | | + +---------+ + + + | CHLORIDE, | 106 | 97 - 108 mmol/L | [facility] | | | PLASMA | | | [facility] | | | (LAB) | | | | | + +---------+ + + + | TOTAL CO2, | 29 | 21 - 32 mmol/L | [facility] | | | PLASMA | | | [facility] | | | (LAB) | | | | | + +---------+ + + + | CALCIUM, | 8.3 (L) | 8.6 - 10.2 | [facility] | | | PLASMA | | mg/dL | [facility] | | | (LAB) | | | | | + +---------+ + + + | BUN/CREATIN | 12 | 8 - 25 | [facility] | | | INE RATIO | | | [facility] | | + +---------+ + + + | EGFR | >60 | >60 mL/min | [facility] | | | - | | | [facility] | | | BRITISH | | | | | + +---------+ + + + | EGFR NON | >60 | >60 mL/min | [facility] | | | -MICHAEL | | | [facility] | | | RICAN | | | | | + +---------+ + + + | ANION GAP | 4 | 4 - 11 mmol/L | [facility] | | | | | | [facility] | | + +---------+ + + + + + | Specimen | + + | Blood - Blood | | (substance) | + + + + + | Narrative | Performed At | + + + | GFR is estimated using the MDRD equation recommended by the National | | | Kidney Disease Education Program. Estimated GFR Interpretive | [facility] | | Information: <60 mL/min/1.73 sq m Chronic Kidney | [facility] | | Disease <15 mL/min/1.73 sq m Kidney Failure | | | Estimated GFR greater than 60 mL/min/1.73 sq m is of limited clinical | | | value. The MDRD equation is not valid in the following situations: | | | - Patients under 18 years of age - Severe malnutrition or obesity | | | - Vegetarian diet - Rapidly changing kidney function - Amputees, | | | paraplegics, or other muscle-wasting diseases | | + + + + + + + + | Performing | Address | City/State/Zipcode | Phone Number | | Organization | | | | + + + + + | [facility] | [address] | [place] [address] | | | LAB | | | | + + + + + X-RAY SPINE LUMBOSACRAL 2 VIEWS (02/03/2019 5:08 PM PDT) + + | Specimen | + + | | + + + + + | Narrative | Performed At | + + + | EXAM DESCRIPTION: X-RAY SPINE LUMBOSACRAL 2 VIEWS CLINICAL | [facility] | | HISTORY: Postop L4-S1 fusion COMPARISON: 11/19/2018. | RADIOLOGY VOICE | | TECHNIQUE: Two views of the lower lumbar spine. FINDINGS: Right | RECOGNITION | | upper are partially obscured on the lateral view. There is intact | | | posterior fusion hardware at L4 through S1. Two surgical drains are | | | seen on the left. Interbody spaces are present at the L3-4 and L4-5 | | | levels. No gross fracture identified. Vertebral body heights appear | | | maintained. IMPRESSION: Status post L4 through S1 discectomy and | | | fusion. Signed By: Luis M Perdomo On 02/04/2019 08:13:21 | | + + + + -------+ | Procedure Note | + -------+ | Service Account, Radiant Res In Interface - 02/04/2019 8:16 AM PDT EXAM | | DESCRIPTION:X-RAY SPINE LUMBOSACRAL 2 VIEWS CLINICAL HISTORY:Postop L4-S1 fusion | | COMPARISON:11/19/2018. TECHNIQUE:Two views of the lower lumbar spine. FINDINGS:Right | | upper are partially obscured on the lateral view. There is intact posterior fusion | | hardwareat L4 through S1. Two surgical drains are seen on the left. Interbody spaces are | | present at theL3-4 and L4-5 levels. No gross fracture identified. Vertebral body | | heights appear maintained. IMPRESSION:Status post L4 through S1 discectomy and fusion. | | Signed By: Luis M Perdomo On 02/04/2019 08:13:21 | | | |TECHNIQUE: | |Two views of the lower lumbar spine. | | | |FINDINGS: | |Right upper are partially obscured on the lateral view. There is intact posterior fusion key rdware | |at L4 through S1. Two surgical drains are seen on the left. Interbody spaces are present at the | |L3-4 and L4-5 levels. No gross fracture identified. Vertebral body heights appear maintaine d. | | | |IMPRESSION: | |Status post L4 through S1 discectomy and fusion. | | | | | |Signed By: Luis M Perdomo On 02/04/2019 08:13:21 | + -------+ + + + + + | Performing | Address | City/State/Zipcode | Phone Number | | Organization | | | | + + + + + | [facility] | [address] | [place] [address] | [phone] | | VOICE RECOGNITION | | | | + + + + + X-RAY FLUOROSCOPY > 1 HOUR (02/03/2019 4:25 PM PDT) + + | Specimen | + + | | + + + + + | Narrative | Performed At | + + + | - At the time of the study, no professional interpretation was | [facility] | | requested. - | RADIOLOGY | + + + + + + + + | Performing | Address | City/State/Zipcode | Phone Number | | Organization | | | | + + + + + | [facility] | [address] | [place] [address] | [phone] | + + + + + CONFIRMATORY ABO/RH (02/03/2019 8:51 AM PDT) + + + + + + | Component | Value | Ref Range | Performed | Pathologist | | | | | At | Signature | + + + + + + | ABO Group | B | | [facility] | | [facility] | | + + + + + + | Rh Type | Negative | | [facility] | | | | | [facility] | | + + + + + + + + | Specimen | + + | Blood - Blood | | (substance) | + + + + + + + | Performing | Address | City/State/Zipcode | Phone Number | | Organization | | | | + + + + + | [facility] | [address] | [place] [address] | | | BANK | | | | + + + + + GLUCOSE, POC (02/03/2019 7:47 AM PDT) + +---------+ + + + | Component | Value | Ref Range | Performed | Pathologist | | | | | At | Signature | + +---------+ + + + | BLOOD | 135 (H) | 60 - 99 mg/dL | [facility] | | | GLUCOSE, | | | INPATIENT - | | | POC | | | POINT OF | | | | | | CARE | | + +---------+ + + + + + | Specimen | + + | Blood | + + + +---------+ + + | Performing | Address | City/State/Zipcode | Phone Number | | Organization | | | | + +---------+ + + | [facility] | | | | | - POINT OF CARE | | | | + +---------+ + + CARDIOLOGY (02/03/2019 12:00 AM PDT) + + + | Narrative | Performed At | + + + | | | + + + documented in this encounter Visit Diagnoses Not on filedocumented in this encounter Administered Medications + +--------+ +--------+------+------+ | Medication Order | MAR | Action | Dose | Rate | Site | | | Action | Date | | | | + +--------+ +--------+------+------+ | acetaminophen (TYLENOL) tablet | Given | 02/11/20 | 650 mg | | | | 650 mg 650 mg, oral, EVERY 6 | | 19 6:11 | | | | | HOURS NEEDED, Starting Tiara | | AM PDT | | | | | 02/06/19 at 1829, Until Mon | | | | | | | 02/10/19 at 1804, fever, mild | | | | | | | pain | | | | | | + +--------+ +--------+------+------+ +-------+ +--------+---+---+ | Given | 02/10/20 | 650 mg | | | | | 19 11:26 | | | | | | PM PDT | | | | +-------+ +--------+---+---+ | Given | 02/10/20 | 650 mg | | | | | 19 3:15 | | | | | | PM PDT | | | | +-------+ +--------+---+---+ +---+---+ | | | +---+---+ + +-------+ +-------+---+---+ | amitriptyline (ELAVIL) tablet | Given | 02/10/20 | 10 mg | | | | 10 mg 10 mg, oral, EVERY | | 19 8:47 | | | | | EVENING, First dose (after last | | PM PDT | | | | | modification) on [facility] 02/06/19 at | | | | | | | 2100, Until Discontinued | | | | | | + +-------+ +-------+---+---+ +-------+ +-------+---+---+ | Given | 02/09/20 | 10 mg | | | | | 19 10:18 | | | | | | PM PDT | | | | +-------+ +-------+---+---+ | Given | 02/08/20 | 10 mg | | | | | 19 9:11 | | | | | | PM PDT | | | | +-------+ +-------+---+---+ + +---+ | | | + +---+ | apixaban (ELIQUIS) tablet 5 mg | | | 5 mg, oral, TWICE DAILY, First | | | dose on Sun02/10/19 at 2100, | | | Until Discontinued | | + +---+ | | | + +---+ + +-------+ +---------+---+ + | bacitracin (BACIIM) injection | Given | 02/04/20 | 50,000 | | Surgical | | INTRAPROCEDURE PRN, Starting Mon | | 19 12:28 | Units | | Site | | 02/03/19 at 1228, Until Mon | | PM PDT | | | | | 02/03/19 at 1637 | | | | | | + +-------+ +---------+---+ + + +---+ | | | + +---+ | dexAMETHasone (DECADRON) tablet | | | 2 mg 2 mg, oral, EVERY 24 | | | HOURS, First dose (after last | | | modification) on 02/10/19 at | | | 1715, Until Discontinued | | + +---+ | | | + +---+ | dextrose (GLUTOSE) 40 % gel 15 | | | g 15 g, oral, NEEDED, | | | Starting Tiara 02/06/19 at 2220, | | | Until 02/10/19 at 1804, PRN | | | blood glucose LESS THAN 70. Give | | | if able to take PO. May | | | substitute with 4 ounces juice or | | | regular soda, or 8 ounces fat | | | free or 1% milk | | + +---+ | | | + +---+ | dextrose 50 % in water IV 25 mL | | | 25 mL, intravenous, NEEDED, | | | Starting Tiara 02/06/19 at 2220, | | | Until 02/10/19 at 1804, CBG | | | less than 70 mg/dL if unable to | | | take PO | | + +---+ | | | + +---+ + +-------+ +-------+---+---+ | famotidine (PEPCID) tablet 20 | Given | 02/11/20 | 20 mg | | | | mg 20 mg, oral, TWICE DAILY, | | 19 8:19 | | | | | First dose on [facility] 02/06/19 at | | AM PDT | | | | | 0900, Until Discontinued | | | | | | + +-------+ +-------+---+---+ +-------+ +-------+---+---+ | Given | 02/10/20 | 20 mg | | | | | 19 8:48 | | | | | | PM PDT | | | | +-------+ +-------+---+---+ | Given | 02/10/20 | 20 mg | | | | | 19 8:22 | | | | | | AM PDT | | | | +-------+ +-------+---+---+ + +---+ | | | + +---+ | glucagon (GLUCAGEN) injection 1 | | | mg 1 mg, intramuscular, | | | NEEDED, Starting Tiara 02/06/19 at | | | 2220, Until Sun02/10/19 at 1804, | | | CBG less than 70 mg/dL per Adult | | | Hypoglycemia Protocol | | + +---+ | | | + +---+ + +-------+ +---+---+---+ | hydrocortisone 1 % cream | Given | 02/07/20 | | | | | topical, TWICE DAILY, First dose | | 19 8:13 | | | | | on Sun02/05/19 at 1230, Until | | PM PDT | | | | | Discontinued | | | | | | + +-------+ +---+---+---+ +-------+ +---+---+---+ | Given | 02/07/20 | | | | | | 19 9:36 | | | | | | AM PDT | | | | +-------+ +---+---+---+ | Given | 02/06/20 | | | | | | 19 8:03 | | | | | | PM PDT | | | | +-------+ +---+---+---+ +---+---+ | | | +---+---+ + +-------+ +---------+---+ + | insulin lispro (HUMALOG) | Given | 02/09/20 | 1 Units | | Left Arm | | injection 1-11 Units 1-11 Units, | | 19 1:00 | | | | | subcutaneous, THREE TIMES DAILY | | AM PDT | | | | | WITH MEALS, First dose on Fri | | | | | | | 02/07/19 at 0730, Until | | | | | | | Discontinued | | | | | | + +-------+ +---------+---+ + +-------+ +---------+---+ + | Given | 02/08/20 | 1 Units | | Left Arm | | | 19 5:13 | | | | | | PM PDT | | | | +-------+ +---------+---+ + | Given | 02/08/20 | 1 Units | | Abdomen | | | 19 12:39 | | | | | | PM PDT | | | | +-------+ +---------+---+ + +---+---+ | | | +---+---+ + +-------+ +---------+---+---+ | lactobacillus rhamnosus (GG) | Given | 02/11/20 | 1 | | | | (CULTURELLE) capsule 1 capsule 1 | | 19 8:19 | capsule | | | | capsule, oral, DAILY, First dose | | AM PDT | | | | | on Sun02/06/19 at 1700, Until | | | | | | | Discontinued | | | | | | + +-------+ +---------+---+---+ +-------+ +---------+---+---+ | Given | 02/10/20 | 1 | | | | | 19 8:21 | capsule | | | | | AM PDT | | | | +-------+ +---------+---+---+ | Given | 02/09/20 | 1 | | | | | 19 9:56 | capsule | | | | | AM PDT | | | | +-------+ +---------+---+---+ +---+---+ | | | +---+---+ + +-------+ +--------+---+---+ | levothyroxine tablet 50 mcg 50 | Given | 02/11/20 | 50 mcg | | | | mcg, oral, BEFORE BREAKFAST, | | 19 6:11 | | | | | First dose on Sun02/04/19 at | | AM PDT | | | | | 0630, Until Discontinued | | | | | | + +-------+ +--------+---+---+ +-------+ +--------+---+---+ | Given | 02/10/20 | 50 mcg | | | | | 19 5:47 | | | | | | AM PDT | | | | +-------+ +--------+---+---+ | Given | 02/09/20 | 50 mcg | | | | | 19 5:23 | | | | | | AM PDT | | | | +-------+ +--------+---+---+ +---+---+ | | | +---+---+ + +-------+ +-------+---+---+ | lisinopril (PRINIVIL) tablet 10 | Given | 02/11/20 | 10 mg | | | | mg 10 mg, oral, DAILY, First | | 19 8:19 | | | | | dose on Sun02/04/19 at 0900, | | AM PDT | | | | | Until Discontinued | | | | | | + +-------+ +-------+---+---+ +-------+ +-------+---+---+ | Given | 02/10/20 | 10 mg | | | | | 19 8:22 | | | | | | AM PDT | | | | +-------+ +-------+---+---+ | Given | 02/09/20 | 10 mg | | | | | 19 9:55 | | | | | | AM PDT | | | | +-------+ +-------+---+---+ +---+---+ | | | +---+---+ + +-------+ +------+---+---+ | melatonin tablet 3 mg 3 mg, | Given | 02/06/20 | 3 mg | | | | oral, AT BEDTIME NEEDED, | | 19 9:58 | | | | | Starting 02/03/19 at 1850, | | PM PDT | | | | | Until 02/10/19 at 1804, | | | | | | | insomnia | | | | | | + +-------+ +------+---+---+ +-------+ +------+---+---+ | Given | 02/04/20 | 3 mg | | | | | 19 9:31 | | | | | | PM PDT | | | | +-------+ +------+---+---+ +---+---+ | | | +---+---+ + +-------+ +--------+---+---+ | methocarbamol (ROBAXIN) tablet | Given | 02/11/20 | 500 mg | | | | 500 mg 500 mg, oral, THREE TIMES | | 19 11:00 | | | | | DAILY NEEDED, Starting Mon | | AM PDT | | | | | 02/03/19 at 1850, Until Mon | | | | | | | 02/10/19 at 1804, muscle spasms | | | | | | + +-------+ +--------+---+---+ +-------+ +--------+---+---+ | Given | 02/11/20 | 500 mg | | | | | 19 12:19 | | | | | | AM PDT | | | | +-------+ +--------+---+---+ | Given | 02/08/20 | 500 mg | | | | | 19 7:59 | | | | | | AM PDT | | | | +-------+ +--------+---+---+ +---+---+ | | | +---+---+ + +-------+ +-------+---+---+ | metoprolol succinate | Given | 02/10/20 | 50 mg | | | | (TOPROL-XL) tablet 50 mg 50 mg, | | 19 8:47 | | | | | oral, AT BEDTIME, First dose on | | PM PDT | | | | | 02/03/19 at 2200, Until | | | | | | | Discontinued | | | | | | + +-------+ +-------+---+---+ +-------+ +-------+---+---+ | Given | 02/09/20 | 50 mg | | | | | 19 10:18 | | | | | | PM PDT | | | | +-------+ +-------+---+---+ | Given | 02/08/20 | 50 mg | | | | | 19 9:34 | | | | | | PM PDT | | | | +-------+ +-------+---+---+ +---+---+ | | | +---+---+ + +-------+ +--------+---+---+ | mineral oil (FLEET MINERAL OIL) | Given | 02/07/20 | 133 mL | | | | rectal enema 133 mL 133 mL, | | 19 5:33 | | | | | rectal, DAILY NEEDED, Starting | | PM PDT | | | | | Tiara 02/06/19 at 1144, Until Mon | | | | | | | 02/10/19 at 1804, constipation | | | | | | + +-------+ +--------+---+---+ +---+---+ | | | +---+---+ + +-------+ +------+---+---+ | oxyCODONE (immediate release) | Given | 02/11/20 | 5 mg | | | | (ROXICODONE) tablet 5-15 mg 5-15 | | 19 11:00 | | | | | mg, oral, EVERY 3 HOURS | | AM PDT | | | | | NEEDED, Starting Sun02/03/19 at | | | | | | | 1850, Until Sun02/10/19 at 1804, | | | | | | | moderate pain | | | | | | + +-------+ +------+---+---+ +-------+ +------+---+---+ | Given | 02/10/20 | 5 mg | | | | | 19 8:48 | | | | | | PM PDT | | | | +-------+ +------+---+---+ | Given | 02/10/20 | 5 mg | | | | | 19 2:40 | | | | | | AM PDT | | | | +-------+ +------+---+---+ +---+---+ | | | +---+---+ + +-------+ +------+---+---+ | polyethylene glycol (MIRALAX) | Given | 02/10/20 | 17 g | | | | packet 17 g 17 g, oral, DAILY, | | 19 8:22 | | | | | First dose on Sun02/03/19 at | | AM PDT | | | | | 1900, Until Discontinued | | | | | | + +-------+ +------+---+---+ +-------+ +------+---+---+ | Given | 02/09/20 | 17 g | | | | | 19 10:08 | | | | | | AM PDT | | | | +-------+ +------+---+---+ | Given | 02/08/20 | 17 g | | | | | 19 7:58 | | | | | | AM PDT | | | | +-------+ +------+---+---+ +---+---+ | | | +---+---+ + +-------+ +------+---+---+ | polyethylene glycol (MIRALAX) | Given | 02/08/20 | 34 g | | | | packet 34 g 34 g, oral, THREE | | 19 9:35 | | | | | TIMES DAILY NEEDED, Starting | | PM PDT | | | | | 02/03/19 at 1850, Until Mon | | | | | | | 02/10/19 at 1804, 1st line - for | | | | | | | no BM for 2 days | | | | | | + +-------+ +------+---+---+ +-------+ +------+---+---+ | Given | 02/08/20 | 34 g | | | | | 19 2:38 | | | | | | PM PDT | | | | +-------+ +------+---+---+ +---+---+ | | | +---+---+ + +-------+ +---------+---+---+ | senna-docusate (SENOKOT S) | Given | 02/10/20 | 2 | | | | 8.6-50 mg 2 tablet 2 tablet, | | 19 8:23 | tablets | | | | oral, TWICE DAILY, First dose on | | AM PDT | | | | | 02/03/19 at 2100, Until | | | | | | | Discontinued | | | | | | + +-------+ +---------+---+---+ +-------+ +---------+---+---+ | Given | 02/09/20 | 2 | | | | | 19 9:56 | tablets | | | | | AM PDT | | | | +-------+ +---------+---+---+ | Given | 02/08/20 | 2 | | | | | 19 9:12 | tablets | | | | | PM PDT | | | | +-------+ +---------+---+---+ +---+---+ | | | +---+---+ + +-------+ +--------+---+---+ | tamsulosin (FLOMAX) capsule 0.4 | Given | 02/11/20 | 0.4 mg | | | | mg 0.4 mg, oral, DAILY, First | | 19 8:19 | | | | | dose on Sun02/05/19 at 1230, | | AM PDT | | | | | Until Discontinued | | | | | | + +-------+ +--------+---+---+ +-------+ +--------+---+---+ | Given | 02/10/20 | 0.4 mg | | | | | 19 8:22 | | | | | | AM PDT | | | | +-------+ +--------+---+---+ | Given | 02/09/20 | 0.4 mg | | | | | 19 9:55 | | | | | | AM PDT | | | | +-------+ +--------+---+---+ +---+---+ | | | +---+---+ documented in this encounter
--- OUTSIDE RECORDS SUMMARY | ~2019-02-23 | XMS | Encounter Summary ---
Demographics + + + | Address | [address] | | | [place] [address] | + + + | Home Phone | | + + + | Preferred Language | Unknown | + + + | Marital Status | | + + + | Sabianism Affiliation | Unknown | + + + | Race | Unknown | + + + | Ethnic Group | Unknown | + + + Author + + + | Author | [facility] | | | and [place] | + + + | Organization | [facility] | | | and [...] Team Providers + +------+ + | Care Client Solutions Manager Name | Role | Phone | + +------+ + | Kait Velazquez MD | PCP | | + +------+ + Encounter Details +--------+ + + + + | Date | Type | Department | Care Team | Description | +--------+ + + + + | 08/14/ | Orders Only | [facility] | Shemar Gillis, | Medication refill | | 2019 | | PHYSIATRY [address] | PA-C [address] | (Primary Dx) | | | | [place], | [address] [place] | | | | | [place] [address] | [place] [address] | | | | | [phone] | [phone] | | | | | | | | +--------+ + + + [...] as of this encounter Plan of Treatment + +------+--------+ + + | Name | Type | Priori | Associated Diagnoses | Order Schedule | | | | ty | | | + +------+--------+ + + | Basic Metabolic | Lab | Routin | Medication refill | 1 Occurrences | | Panel | | e | | starting 08/14/2018 | | | | | | until 08/15/2019 | + +------+--------+ + + documented as of this encounter Visit Diagnoses + + | Diagnosis | + + | Medication refill - Primary Issue of repeat prescriptions | + + documented in this encounter"
--- OUTSIDE RECORDS SUMMARY | ~2019-02-23 | XMS | Encounter Summary ---
Demographics + + + | Address | [address] | | | [place] [address] | + + + | Home Phone | | + + + | Preferred Language | Unknown | + + + | Marital Status | | + + + | Jain Affiliation | Unknown | + + + | Race | Unknown | + + + | Ethnic Group | Unknown | + + + Author + + + | Author | [facility] | | | and [place] | + + + | Organization | [facility] | | | [...] Team Providers + +------+ + | Care Advertisement Compositor Name | Role | Phone | + +------+ + | Paul Boss MD | PCP | | + +------+ + Reason for Visit +--------+ + | Reason | Comments | +--------+ + | Pain | | +--------+ + Encounter Details +--------+ + + + + | Date | Type | Department | Care Team | Description | +--------+ + + + + | 11/09/ | Telephone | [facility] | Tahir Handley | Pain | | 2017 | | PHYSIATRY [address] | | | | | [place], | [place], [place] | | | | | [place] [address] | [address] | | | | | [phone] | | | +--------+ + + + [...]
--- OUTSIDE RECORDS SUMMARY | ~2019-02-23 | XMS | Encounter Summary ---
Demographics + + + | Address | [address] | | | [place] [address] | + + + | Home Phone | | + + + | Preferred Language | Unknown | + + + | Marital Status | | + + + | Lutheran Affiliation | Unknown | + + + | Race | Unknown | + + + | Ethnic Group | Unknown | + + + Author + + + | Author | [facility] | | | and [place] | + + + | Organization | [facility] | | | [...] Team Providers + +------+ + | Care Photogeologist Name | Role | Phone | + +------+ + | Kait Velazquez MD | PCP | | + +------+ + Encounter Details +--------+---------+ + + + | Date | Type | Department | Care Team | Description | +--------+---------+ + + + | 05/20/ | Surgery | [facility] | Tahir Handley | [facility] | | 2019 | | [facility] | MD Joel [address] | | | | | [address] | [address] [place], [place] | | | | | [place], [place] | [address] | | | | | [address] | | | | | | [phone] | | | +--------+---------+ + + + Social History [...] + + + | Blood Pressure | 103/60 | 05/20/2018 3:30 PM | | | | | PST | | + + + + + | Pulse | 91 | 05/20/2018 3:30 PM | | | | | PST | | + + + + + | Temperature | 37 C (98.6 F) | 05/20/2018 1:44 PM | | | | | PST | | + + + + + | Respiratory Rate | 16 | 05/20/2018 3:30 PM | | | | | PST | | + + + + + | Oxygen Saturation | 95% | 05/20/2018 3:30 PM | | | | | PST | | + + + + + | Inhaled Oxygen | - | - | | | Concentration | | | | + + + + + | Weight | 123.4 kg (272 lb 0.8 | 05/20/2018 12:40 PM | | | | oz) | PST | | + + + + + | Height | 175.3 cm (5' 9") | 05/20/2018 12:40 PM | | | | | PST | | + + + + + | Body Mass Index | 40.17 | 05/20/2018 12:40 PM | | | | | PST | | + + + + + documented in this encounter Discharge Instructions Instructions Claribel Newell RN - 05/20/2018Formatting of this note might be different f rom the original. Procedural Sedation Procedural sedation is medicine to ease discomfort, pain, and anxiety during a procedure. T he medicine is often given through an IV (intravenous) line in your arm or hand. In some ac es, the medicine may be taken by mouth or inhaled. While you are under sedation, you will li danielle be awake. But you may not remember anything afterward. Why procedural sedation is used Sedation is used for many types of procedures. The goal is to reduce pain, anxiety, and str essful memories of a procedure. It can also help your healthcare provider treat you. For exa mple, having a broken bone fixed may be easier if you feel relaxed. Procedural sedation is used only for short, basic procedures. It is not used for complex reyes rgeries. Some procedures that use this type of sedation include: Dental surgery Breast biopsy, to take a sample of breast tissue Endoscopy, to look at gastrointestinal problems Bronchoscopy, to check for lung problems Bone or joint realignment, to fix a broken bone or dislocated joint Minor foot or skin surgery Electrical cardioversion, to restore a normal heart rhythm Lumbar puncture, to assess neurological disease Risks of procedural sedation Procedural sedation has some risks and possible side effects, such as: Headache Nausea and vomiting Unpleasant memory of the procedure Lowered rate of breathing Changes in heart rate and blood pressure (rare) Inhalation of stomach contents into your lungs (rare) Side effects will likely go away shortly after the procedure. Your healthcare team will vic ch your heart rate and breathing during your sedation. This is to help prevent problems. Your own risks may vary based on your age and your overall health. They also depend on the type of sedation you are given. Talk with your healthcare provider about the risks that appl y most to you. Getting ready for procedural sedation Talk with your healthcare provider about how to get ready for your procedure. Tell him or h er about all the medicines you take. This includes oetb-ytr-qlrojdm medicines such as ibupro fen. It also includes vitamins, herbs, and other supplements. You may need to stop taking so me medicines before the procedure, such as blood thinners and aspirin. If you smoke, you jono uld stop to lessen the chance of a lung issue. Talk with your healthcare provider if you nee d help to stop smoking. Tell your healthcare provider if you: Have had any problems in the past with sedation or anesthesia Have had any recent changes in your health, such as an infection or fever Are or think you may be Also be sure to: Ask a family member or friend to take you home after the procedure. You can t drive on the day you receive sedation. Not eat or drink after midnight the night before your procedure, if advised. Not plan on making any important decisions, such as financial or legal, for the day afte r you receive the sedation. Follow all other instructions from your healthcare provider. During your procedural sedation You may have your procedure in a hospital or a medical clinic. Sedation is done by a traine d healthcare provider. In general, you can expect the following: You will be given medicine through an IV line in your arm or hand. Or you may receive a shot. The medicine may also be given by mouth. Or you may inhale it through a mask. If you receive medicine through an IV, you may feel the effects very quickly. You will s tart to feel relaxed and drowsy. During the procedure, your heart rate, breathing, and blood pressure will be closely vic ched. Your breathing and blood pressure may decrease a little. But you will likely not need help with your breathing. You may receive a little extra oxygen through a mask or through so me soft plastic prongs underneath your nose. You will probably be awake the entire time. If you do fall asleep, you should be easy to wake up, if needed. You should feel little or no pain. When your procedure is over, the sedative medicine will be stopped. After your procedural sedation You will begin to feel more awake and aware. But you will likely be drowsy for a while afte rward. You will be closely watched as you become more alert. You may have a faint memory of the procedure. Or you may not remember it at all. You should be able to return home within an hour or two after your procedure. Plan to have someone stay with you for a few hours. Side effects such as headache and nausea may go away quickly. Tell your healthcare provider if they continue. Don t drive or make any important decisions for at least 24 hours. Be sure to follow all after-care instructions. When to call your healthcare provider Have someone call your healthcare provider right away if you have any of these: Drowsiness that gets worse Weakness or dizziness that gets worse Repeated vomiting You can t be awakened Severe or ongoing pain from the procedure, not relieved by the pain medicine Date Last Reviewed: 05/17/201619995708-3369 [employer]. [address] [place] [address]. All righ ts reserved. This information is not intended as a substitute for professional medical care. Always follow your healthcare professional's instructions. Understanding Radiofrequency Denervation Radiofrequency denervation is a treatment choice for some kinds of lower back and neck pain . It uses an electrical current created by radio waves. The radio waves make heat that destr oys nerves along the spine that are causing pain. It s also known as radiofrequency lesion ing, ablation, neurotomy, or rhizomotomy. How to say it JWZ-ova-zi-OQUM-uhbw-vmnkorina No Why radiofrequency denervation is done This treatment may be an option to reduce or stop lower back or neck pain that has lasted f or a month or more. It can help treat pain caused by arthritis, normal wear and tear, disk d isease, injury, and other problems. It s used when other treatment hasn t worked, such a s medicine and physical therapy. It may be done after an injection of medicine into the nerv e area to confirm that the nerve will respond to treatment. How radiofrequency denervation is done The procedure is done in a hospital or medical clinic. During the treatment: You lie on your stomach. The area in your back or neck to be treated may be numbed. You may be given some medicine to help you relax. The healthcare provider inserts a thin tube through the skin over the spine in your lowe r back or neck. He or she uses moving X-ray machine called a fluoroscope to help make sure t he thin tube is in the right place. You may feel some discomfort. When the tube is in place, the provider puts a wire through the tube. The wire is connec gato to a machine that sends radio waves through the wire. The radio waves heat the nerve and destroy it. More than one nerve may need to be treated. You can go home 1 to 2 hours after the proce dure. You may feel more pain right after the treatment. The pain should then go away over 1 to 3 weeks. The pain relief may last for less than a month, or for 6 months or more. This depends on what is causing your pain, and how well this treatment can work for it. It may help you be able to take less medicine for pain. The nerve will likely grow back. But it may not caus e pain, or as much pain as before. Risks of radiofrequency denervation More pain after the procedure for a period of time Mild burning feeling that may last up to 3 weeks Numbness in the area that may last up to 4 months Date Last Reviewed: 09/15/201519998463-7212 [employer]. [address] [place] [address]. All righ ts reserved. This information is not intended as a substitute for professional medical care. Always follow your healthcare professional's instructions. documented in this encounter Medications at Time of Discharge + + + +---------+ + + | Medication | Sig | Dispensed | Refills | Start | End Date | | | | | | Date | | + + + +---------+ + + | aspirin 81 MG | Take 81 mg by mouth | | 0 | | | | tablet | Daily. | | | | | + + + +---------+ + + | ELIQUIS 5 MG | Take 1 tablet by | | 4 | 12/06/19 | | | tablet | mouth 2 times daily. | | | 18 | | + + + +---------+ + [...] + + +---------+ + + | amitriptyline | Take 50 mg by mouth | | 0 | 02/27/20 | | | (ELAVIL) 25 mg | Daily. | | | 18 | 9 | | tablet | | | | | | + + + +---------+ + + | cetirizine | Take 10 mg by mouth | | 0 | | | | (ZYRTEC) 10 mg | Daily. | | | | 9 | | tablet | | | | | | + + + +---------+ + + | Desoximetasone | Apply 1 Application | | 0 | | | | 0.05 % GEL | topically 2 times | | | | 9 | | | daily. | | | | | + + + +---------+ + + | metroNIDAZOLE | Apply 45 g topically | | 3 | 09/28/19 | | | (METROCREAM) 0.75 % | as needed. | | | 18 | 9 | | cream | | | | | | + + + +---------+ + + documented as of this encounter Plan of Treatment Not on filedocumented as of this encounter Procedures + +--------+ + + + | Procedure Name | Priori | Date/Time | Associated Diagnosis | Comments | | | ty | | | | + +--------+ + + + | FL DESTRUCTION BY | Routin | 05/20/2018 | Lumbar facet | Results for this | | NEUROLYTIC AGENT | e | 2:49 PM | arthropathy Lumbar | procedure are in the | | LUMBAR SACRAL | | PST | spondylosis DDD | results section. | | | | | (degenerative disc | | | | | | disease), lumbar | | + +--------+ + + + | INJECTION FACET | | 05/20/2018 | Lumbar facet | | | LUMBAR / SACRAL | | 1:33 PM | arthropathy | | | (91084) | | PST | | | + +--------+ + + + +---+--------+ | | Case | | | Notes | | | [facility] | +---+--------+ | | | | | Specia | | | l | | | Needs | | | | | | CHECKI | | | NG IN | | | @ 1230 | +---+--------+ documented in this encounter Results FL DESTRUCTION BY NEUROLYTIC AGENT LUMBA (05/20/2018 2:49 PM PST) + + | Specimen | + + | | + + + + + | Narrative | Performed At | + + + | | [facility] | | 05/20/2018RADIOFREQUENCY ABLATION CLINICAL HISTORY: ICD-10 Code M47.816 | | | LUMBAR SPONDYLOSIS. Antonio Skyler Azevedo Jr. presents to the | | | fluoroscopy suite for fluoroscopically guided radiofrequency ablation | | | of the bilateral L3, L4 medial branches and bilateral L5 dorsal rami | | | as part of conservative management for chronic pain and lumbar | | | spondylosis. Prior to the start of the procedure, the following were | | | performed and/or verified including correct patient identify, correct | | | site/side marked and visible, agreement on the procedure to be done, | | | correct patient positioning and an accurate procedure consent form. | | | Any safety precautions based on clinical history and/or medication use | | | have been addressed. After informed consent was obtained, the | | | patient lay in the prone position on the fluoroscopy table. The areas | | | were identified under fluoroscopic guidance. The areas were prepped | | | and draped in a sterile fashion. A 25-gauge 1-1/2-inch needle was | | | inserted into each region and approximately 3 mL of buffered 1% | | | lidocaine was infused. Then an 18-gauge radiofrequency ablation needle | | | was inserted into each area under direct fluoroscopic guidance. | | | Confirmation into the appropriate areas was obtained by taking | | | multiple images from different angles and by motor stimulation. We | | | were able to obtain muscle contraction with motor stimulation at all | | | of the sites. The needles were adjusted until the patient did not have | | | any symptoms down into the legs with any motor or sensory | | | stimulation. Prior to performing the radiofrequency ablation at each | | | site, a small amount of lidocaine was infused, then ablation was | | | conducted at each site for 90 seconds at 80 degrees Celsius. The | | | needles were slightly readjusted and a second burn was performed at | | | each site. At the conclusion of the procedure approximately 10 mg of | | | triamcinolone was injected into each site along with 0.5 mL of 0.5% | | | ropivacaine for post procedure neuritis prophylaxis. The needles were | | | then removed and the areas were bandaged. The procedure was performed | | | using conscious sedation with 3 mg Versed and 150 mcg fentanyl | | | supervised by me and administered by the radiology nurse during the | | | procedure according to hospital conscious sedation protocol. At the | | | conclusion of the procedure the patient was transferred to recovery in | | | stable condition. The patient was given verbal as well as written | | | followup instructions post procedure. I personally performed the | | | procedure above.Sedation start time: 13:50Sedation end time: | | | 14:50Estimated blood loss: MinimalComplications: NoneFindings: As | | | expectedAnesthesia: Local 1% Lidocaine | | | | | | | | |I personally performed the procedure above. | | |Sedation start time: 13:50 | | |Sedation end time: 14:50 | | |Estimated blood loss: Minimal | | |Complications: None | | |Findings: As expected | | |Anesthesia: Local 1% Lidocaine | | | | | + + + + +---------+ + + | Performing | Address | City/State/Zipcode | Phone Number | | Organization | | | | + +---------+ + + | [facility] | | | | + +---------+ + + documented in this encounter Visit Diagnoses + + | Diagnosis | + + | Lumbar facet arthropathy Lumbosacral spondylosis without myelopathy | + + documented in this encounter Administered Medications + +--------+ +--------+------+------+ | Medication Order | MAR | Action | Dose | Rate | Site | | | Action | Date | | | | + +--------+ +--------+------+------+ | fentaNYL (PF) injection PRN, | Given | 05/20/19 | 50 mcg | | | | Starting 05/20/18 at 1353 | | 19 2:13 | | | | | | | PM PST | | | | + +--------+ +--------+------+------+ +-------+ +--------+---+---+ | Given | 05/20/19 | 50 mcg | | | | | 19 1:59 | | | | | | PM PST | | | | +-------+ +--------+---+---+ | Given | 05/20/19 | 50 mcg | | | | | 19 1:53 | | | | | | PM PST | | | | +-------+ +--------+---+---+ +---+---+ | | | +---+---+ + +-------+ +-------+---+---+ | lidocaine (PF) 4% injection 3 | Given | 05/20/19 | 3 mLs | | | | mL 3 mL, Other, ONCE, Sun05/20/18 | | 19 2:30 | | | | | at 1330, For 1 dose | | PM PST | | | | + +-------+ +-------+---+---+ +---+---+ | | | +---+---+ + +-------+ +--------+---+ + | lidocaine buffered 0.9% | Given | 05/20/19 | 10 mLs | | Other | | injection 10 mL 10 mL, | | 19 2:05 | | | (Comment | | Intradermal, ONCE, Sun05/20/18 at | | PM PST | | | ) | | 1330, For 1 dose | | | | | | + +-------+ +--------+---+ + +---+---+ | | | +---+---+ + +-------+ +------+---+---+ | midazolam (VERSED) 1 mg/mL | Given | 05/20/19 | 1 mg | | | | injection PRN, Starting Mon | | 19 2:13 | | | | | 05/20/18 at 1353 | | PM PST | | | | + +-------+ +------+---+---+ +-------+ +------+---+---+ | Given | 05/20/19 | 1 mg | | | | | 19 1:59 | | | | | | PM PST | | | | +-------+ +------+---+---+ | Given | 05/20/19 | 1 mg | | | | | 19 1:53 | | | | | | PM PST | | | | +-------+ +------+---+---+ +---+---+ | | | +---+---+ + +-------+ +-------+---+---+ | ropivacaine (NAROPIN) 5 mg/mL | Given | 05/20/19 | 3 mLs | | | | (0.5%) injection 3 mL 3 mL, | | 19 2:39 | | | | | PERINEURAL, ONCE, 05/20/18 at | | PM PST | | | | | 1330, For 1 dose | | | | | | + +-------+ +-------+---+---+ +---+---+ | | | +---+---+ + +---------+ +---+ +---+ | sodium chloride 0.9% (NS) | New Bag | 05/20/19 | | 50 mL/hr | | | infusion at 50 mL/hr, | | 19 1:06 | | | | | Intravenous, CONTINUOUS, Starting | | PM PST | | | | | 05/20/18 at 1300, OK to use | | | | | | | implantable port., Pre-op | | | | | | + +---------+ +---+ +---+ +---+---+ | | | +---+---+ + +-------+ +-------+---+---+ | triamcinolone acetonide | Given | 05/20/19 | 80 mg | | | | (KENALOG-40) 40 mg/mL injection | | 19 2:39 | | | | | 80 mg 80 mg, Other, ONCE, Mon | | PM PST | | | | | 05/20/18 at 1330, For 1 dose, Shake | | | | | | | well. Not for IV use., | | | | | | + +-------+ +-------+---+---+ +---+---+ | | | +---+---+ documented in this encounter
--- OUTSIDE RECORDS SUMMARY | ~2019-02-23 | XMS | Encounter Summary ---
Demographics + + + | Address | [address] | | | [place] [address] | + + + | Home Phone | | + + + | Preferred Language | Unknown | + + + | Marital Status | | + + + | Episcopal Affiliation | NRP | + + + [...] Team Providers + +------+ + | Care Speech Professor Name | Role | Phone | + +------+ + | Kait Velazquez MD | PCP | | + +------+ + Encounter Details +--------+ + + + + | Date | Type | Department | Care Team | Description | +--------+ + + + + | 01/23/ | Anesthesia | [facility] | Trini Campa, | | | 2019 | Event | Preoperative | [place] [address] | | | | | Assessment Clinic | [place] [address] | | | | | [address] | | | | | | [facility] [address] | | | | | | [place], [place] | | | | | | [address] | | | | | | [phone] | | | +--------+ + + + + Anesthesia Record + + + + + | Procedure Name | Responsible | Anesthesia Start | Anesthesia Stop Time | | | Anesthesiologist | Time | | + + + + + | PREANESTHETIC | | | | | EVALUATION | | | | + + + + + + + | No events on file. | + + +------+ | Meds | +------+ + + + No medications | on file. | + + + + + | No agents on file. | + + + + | No blood administrations on file. | + + + + | No LDAs on file. | + + documented in this encounter Social History + +-------+ +--------+ + | [...] [address] | | | | | | [place], [place] | | | | | | [address] | | | | | | | | +--------+---------+ + + + documented as of this encounter Visit Diagnoses Not on filedocumented in this encounter"
--- OUTSIDE RECORDS SUMMARY | ~2019-02-23 | XMS | Encounter Summary ---
Demographics + + + | Address | [address] | | | [place] [address] | + + + | Home Phone | | + + + | Preferred Language | Unknown | + + + | Marital Status | | + + + | Congregation Affiliation | Unknown | + + + | Race | Unknown | + + + | Ethnic Group | Unknown | + + + Author + + + | Author | [facility] | | | and [place] | + + + | Organization | [facility] | | | and [...] Team Providers + +------+ + | Care Dye Beck Reel Operator Name | Role | Phone | + +------+ + | Kait Vleazquez MD | PCP | | + +------+ + Reason for Referral Diagnostic/Screening (Routine) +--------+--------+ + + + + | Status | Reason | Specialty | Diagnoses / | Referred By | Referred To | | | | | Procedures | Contact | Contact | +--------+--------+ + + + + | Closed | | MRI | Diagnoses | [facility] | | | | | Lumbar | [facility] | | | | | radiculopath | [address] | | | | | y | [address] | [place] | | | | | Procedures | [address] | [place], [place] | | | | | MRI Lumbar | [place], | [address] | | | | | Spine wo | [place] [address] | Phone: | | | | | Contrast | Phone: | [phone] | | | | | Let Pt. | [phone] | Fax: | | | | | know when | Fax: | [phone] | | | | | auth. | [phone] | | +--------+--------+ + + + + Encounter Details +--------+ + + + + | Date | Type | Department | Care Team | Description | +--------+ + + + + | 10/02/ | Orders Only | [facility] | Shemar Gillis, | Lumbar radiculopathy | | 2019 | | PHYSIATRY [address] | PA-C [address] | (Primary Dx) | | | | [place], | [address] [place] | | | | | [place] [address] | [place] [address] | | | | | [phone] | [phone] | | | | | | | [...] of this encounter Plan of Treatment + +---------+--------+ + + | Name | Type | Priori | Associated Diagnoses | Order Schedule | | | | ty | | | + +---------+--------+ + + | MRI Lumbar Spine wo | Imaging | Routin | Lumbar | Expected: | | Contrast | | e | radiculopathy | 10/02/2018, Expires: | | | | | | 10/03/2019 | + +---------+--------+ + + documented as of this encounter Visit Diagnoses + + | Diagnosis | + + | Lumbar radiculopathy - Primary Thoracic or lumbosacral neuritis or radiculitis, | | unspecified | + + documented in this encounter"
--- OUTSIDE RECORDS SUMMARY | ~2019-02-23 | XMS | Encounter Summary ---
Demographics + + + | Address | [address] | | | [place] [address] | + + + | Home Phone | | + + + | Preferred Language | Unknown | + + + | Marital Status | | + + + | Bahai Affiliation | Unknown | + + + | Race | Unknown | + + + | Ethnic Group | Unknown | + + + Author + + + | Author | [facility] | | | and [place] | + + + | Organization | [facility] | | | and [...] Team Providers + +------+ + | Care Bit Tapper Name | Role | Phone | + +------+ + | Kait Velazquez MD | PCP | | + +------+ + Reason for Visit Service/Procedure (Routine) +--------+--------+ + + + + | Status | Reason | Specialty | Diagnoses / | Referred By | Referred To | | | | | Procedures | Contact | Contact | +--------+--------+ + + + + | Closed | | Radiology | Diagnoses | | [facility] | | | | | Lumbar | [place], | [address] | | | | | radiculopath | Tahir Maldonado, MD | [place], | | | | | y | [address] | [place] | | | | | Procedures | [address] [place] | [address] | | | | | PA INJECT | [place] | Phone: | | | | | ANES/STEROID | [address] | [phone] | | | | | FORAMEN | Phone: | Fax: | | | | | LUMBAR/SACRA | [phone] | [phone] | | | | | L W IMG | Fax: | | | | | | GUIDE ,1 | [phone] | | | | | | LEVEL PA | | | | | | | TRIAMCINOLON | | | | | | | E ACET INJ | | | | | | | NOS, 10 MG | | | | | | | Bilat. L5-S1 | | | | | | | TFESI | | | | | | | Eliquis | | | +--------+--------+ + + + + Encounter Details +--------+ + + + + | Date | Type | Department | Care Team | Description | +--------+ + + + + | 05/30/ | Hospital | [facility] | Shemar Gillis, | Lumbar radiculopathy | | 2019 | Encounter | MED CTR XRAY [address] | PA-C [address] | | | | | [place] | [address] [place] | | | | | [place] [address] | [place] [address] | | | | | [phone] | | | | | | | | | | | | Acid Etch Operator, [facility] | | +--------+ + + + + [...] this encounter Last Filed Vital Signs + +---------+ + + | Vital Sign | Reading | Time Taken | Comments | + +---------+ + + | Blood Pressure | 168/79 | 09/12/2018 4:08 PM | | | | | PDT | | + +---------+ + + | Pulse | 111 | 09/12/2018 3:41 PM | | | | | PDT | | + +---------+ + + | Temperature | - | - | | + +---------+ + + | Respiratory Rate | - | - | | + +---------+ + + | Oxygen Saturation | - | - | | + +---------+ + + | Inhaled Oxygen | - | - | | | Concentration | | | | + +---------+ + + | Weight | - | - | | + +---------+ + + | Height | - | - | | + +---------+ + + | Body Mass Index | - | - | | + +---------+ + + documented in this encounter Medications at Time [...] +---------+ + + | lisinopril | Take 10 mg by mouth | | 0 | | | | (PRINIVIL, ZESTRIL) | Daily. | | | | | | 10 mg tablet | | | | | [...] 0.4 mg under | | 0 | 07/15/20 | | | (NITROSTAT) 0.4 mg | [...] + + + +---------+ + + | meloxicam (MOBIC) | Take 1-2 tabs per | 60 | 3 | 08/21/19 | | | 7.5 mg tablet | day PRN | tablet | | 19 | 9 | + + + +---------+ + + [...] + +--------+ + + + | FL EPIDURAL STEROID | Routin | 09/12/2018 | Lumbar | Results for this | | INJECTION LUMBAR | e | 3:41 PM | radiculopathy | procedure are in the | | TRANSFORAMINAL | | PDT | | results section. | + +--------+ + + + documented in this encounter Results FL KASSIDY Lumbar Transforaminal (09/12/2018 3:41 PM PDT) + + | Specimen | + + | | + + + + -+ | Narrative | Performed At | + + -+ | 09/12/2018 | [facility] | | Bilateral Transforaminal Epidural Steroid Injections Diagnosis: Lumbar | | | radiculopathy ICD-10 Code M54.16 Antonio Azevedo Jr. presents to | | | the fluoroscopy suite for fluoroscopically-guided bilateral L5-S1 | | | transforaminal epidural steroid injections as part of conservative | | | management for chronic pain with lumbar radiculopathy and degenerative | | | disc disease. After informed consent was obtained, the patient lay in | | | the prone position on the fluoroscopy table. The areas were | | | identified under fluoroscopic guidance. The areas were prepped and | | | draped in sterile fashion. A 25-gauge, 1.5-inch needle was inserted | | | into each region and approximately 3 mL of buffered 1% lidocaine was | | | infused. Then, a 22-gauge spinal needle was inserted into the | | | posterior superior transforaminal space bilaterally and advanced into | | | the epidural space under fluoroscopic guidance. No iodinated contrast | | | was used due to a contrast dye allergy. Once the needle was in the | | | correct position a combination of 2 mL of 1% lidocaine and 1.5 mL of | | | 10 mg/mL dexamethasone was infused, divided between the two sides. The | | | patient tolerated the procedure well without complications. Pre- and | | | post-procedure blood pressures were stable. The patient was given | | | verbal as well as written follow-up instructions. Prior to the start | | | of the procedure, the following were performed and/or verified, | | | including correct patient identity, correct site/side marked and | | | visible, agreement on the procedure to be done, correct patient | | | positioning and an accurate procedure consent form. Any safety | | | precautions based on clinical history and/or medication use have been | | | addressed. I personally performed the procedure above. Estimated blood | | | loss: MinimalComplications: NoneFindings: As expectedAnesthesia: | | | Local 1% Lidocaine | | |visible, agreement on the procedure to be done, correct patient | | |positioning and an accurate procedure consent form. Any safety precautions | | |based on clinical history and/or medication use have been addressed. I | | |personally performed the procedure above. | | | | | |Estimated blood loss: Minimal | | |Complications: None | | |Findings: As expected | | |Anesthesia: Local 1% Lidocaine | | | | | | | | | | | + + -+ + +---------+ + + | Performing | Address | City/State/Zipcode | Phone Number | | Organization | | | | + +---------+ + + | [facility] | | | | + +---------+ + + documented in this encounter Visit Diagnoses + + | Diagnosis | + + | Lumbar radiculopathy Thoracic or lumbosacral neuritis or radiculitis, unspecified | + + documented in this encounter Administered Medications + +--------+ +-------+------+------+ | Medication Order | MAR | Action | Dose | Rate | Site | | | Action | Date | | | | + +--------+ +-------+------+------+ | dexamethasone (PF) 10 mg/mL | Given | 09/13/19 | 15 mg | | | | injection 15 mg 15 mg, Other, | | 19 3:52 | | | | | ONCE, [facility] 09/12/18 at 1545, For 1 | | PM PDT | | | | | dose, When ordered IV push: | | | | | | | Dilute to 10-20 mL with NS and | | | | | | | give slowly over 1-2 minutes., | | | | | | + +--------+ +-------+------+------+ +---+---+ | | | +---+---+ + +-------+ +-------+---+---+ | lidocaine (PF) 1% injection 2 | Given | 09/13/19 | 2 mLs | | | | mL 2 mL, Other, ONCE, [facility] | | 19 3:54 | | | | | 09/12/18 at 1545, For 1 dose | | PM PDT | | | | + +-------+ +-------+---+---+ +---+---+ | | | +---+---+ + +-------+ +-------+---+ + | lidocaine buffered 0.9% | Given | 09/13/19 | 3 mLs | | Other | | injection 3 mL 3 mL, | | 19 3:50 | | | (Comment | | Intradermal, ONCE, [facility] 09/12/18 at | | PM PDT | | | ) | | 1545, For 1 dose | | | | | | + +-------+ +-------+---+ + +---+---+ | | | +---+---+ documented in this encounter"
--- OUTSIDE RECORDS SUMMARY | ~2019-02-23 | XMS | Encounter Summary ---
Demographics + + + | Address | [address] | | | [place] [address] | + + + | Home Phone | | + + + | Preferred Language | Unknown | + + + | Marital Status | | + + + | Taoism Affiliation | Unknown | + + + | Race | Unknown | + + + | Ethnic Group | Unknown | + + + Author + + + | Author | [facility] | | | and [place] | + + + | Organization | [facility] | | | [...] Team Providers + +------+ + | Care Sandblaster Supervisor Name | Role | Phone | + +------+ + | Paul Boss MD | PCP | | + +------+ + Reason for Visit + + + | Reason | Comments | + + + | Injections | | + + + | Medication Question | | + + + Encounter Details +--------+ + + + + | Date | Type | Department | Care Team | Description | +--------+ + + + + | 08/14/ | Telephone | [facility] [place] | Tahir Handley | Injections; | | 2017 | | PHYSIATRY [address] | Medication Question | | | | [address] [place], | [place], [place] | | | | | [place] [address] | [address] | | | | | [phone] | | | +--------+ + + + [...]
--- OUTSIDE RECORDS SUMMARY | ~2019-02-23 | XMS | Encounter Summary ---
Demographics + + + | Address | [address] | | | [place] [address] | + + + | Home Phone | | + + + | Preferred Language | Unknown | + + + | Marital Status | | + + + | Advent Affiliation | NRP | + + + [...] Providers + +------+ + | Care Warehouse Assembly Worker Name | Role | Phone | + +------+ + | Kait Velazquez MD | PCP | | + +------+ + Encounter Details +--------+ + + + + | Date | Type | Department | Care Team | Description | +--------+ + + + + | 11/19/ | Hospital | Diagnostic Imaging | Cosme Baker, | | | 2018 | Encounter | at [facility] | PA-C [address] | | | | | [address] | [place], [place] | | | | [facility] [phone] | | | | | [place] [address] | | | | | | [phone] | | | +--------+ + + + + Social History + +-------+ +--------+ + | Tobacco Use | Types | Packs/Day | Years | Date | | | | | Used | | + +-------+ +--------+ + | Former Smoker | | | | Quit: 1990 | + +-------+ +--------+ + + +---+---+---+ [...] 2018 | Visit | | [facility] [address] | | | | | | [place], [place] | | | | | | [address] | | | | | | | | +--------+---------+ + + + documented as of this encounter Procedures + +--------+ + + + | Procedure Name | Priori | Date/Time | Associated Diagnosis | Comments | | | ty | | | | + +--------+ + + + | X-RAY SPINE | Routin | 11/19/2018 | Back pain, | Results for this | | LUMBOSACRAL 4 VIEWS | e | 8:29 AM | unspecified back | procedure are in the | | | | PDT | location, | results section. | | | | | unspecified back | | | | | | pain laterality, | | | | | | unspecified | | | | | | chronicity | | + +--------+ + + + documented in this encounter Results X-RAY SPINE LUMBOSACRAL 4 VIEWS (11/19/2018 8:29 AM PDT) + + | Specimen | + + | | + + + + + | Narrative | Performed At | + + + | EXAM DESCRIPTION: X-RAY SPINE LUMBOSACRAL 4 VIEWS CLINICAL | [facility] | | HISTORY: Chronic left-sided back pain. COMPARISON: None. | RADIOLOGY VOICE | | TECHNIQUE: AP view. Lateral views in neutral, flexion and extension. | RECOGNITION | | FINDINGS: There is diffuse osseous demineralization. There is | | | levoscoliosis centered at L2-3. There is no spondylolisthesis or | | | instability. No fracture line is seen. Vertebral body heights are | | | maintained. There is mild loss of intervertebral disc height from | | | L2-3 through L5-S1. There are small to moderate multilevel endplate | | | spurs throughout the thoracolumbar spine. There is multilevel mid to | | | lower lumbar facet arthropathy. IMPRESSION: 1. No fracture, | | | subluxation or instability. 2. Levoscoliosis. 3. Multilevel | | | spondylosis Signed By: Luis M Perdomo On 11/19/2018 09:07:09 | | + + + + --------+ | Procedure Note | + --------+ | Service Account, Radiant Res In Interface - 11/19/2018 9:10 AM PDT EXAM | | DESCRIPTION:X-RAY SPINE LUMBOSACRAL 4 VIEWS CLINICAL HISTORY:Chronic left-sided back | | pain. COMPARISON:None. TECHNIQUE:AP view. Lateral views in neutral, flexion and | | extension. FINDINGS:There is diffuse osseous demineralization. There is levoscoliosis | | centered at L2-3. There is nospondylolisthesis or instability. No fracture line is seen. | | Vertebral body heights are maintained.There is mild loss of intervertebral disc height | | from L2-3 through L5-S1. There are small tomoderate multilevel endplate spurs throughout | | the thoracolumbar spine. There is multilevel mid tolower lumbar facet arthropathy. | | IMPRESSION:1. No fracture, subluxation or instability.2. Levoscoliosis.3. Multilevel | | spondylosis Signed By: Luis M Perdomo On 11/19/2018 09:07:09 | |AP view. Lateral views in neutral, flexion and extension. | | | |FINDINGS: | |There is diffuse osseous demineralization. There is levoscoliosis centered at L2-3. There i s no | |spondylolisthesis or instability. No fracture line is seen. Vertebral body heights are main tained. | |There is mild loss of intervertebral disc height from L2-3 through L5-S1. There are small t o | |moderate multilevel endplate spurs throughout the thoracolumbar spine. There is multilevel mid to | |lower lumbar facet arthropathy. | | | |IMPRESSION: | |1. No fracture, subluxation or instability. | |2. Levoscoliosis. | |3. Multilevel spondylosis | | | | | |Signed By: Luis M Perdomo On 11/19/2018 09:07:09 | + --------+ + + + + + | Performing | Address | City/State/Zipcode | Phone Number | | Organization | | | | + + + + + | [facility] | [address] | [place] [address] | [phone] | | VOICE RECOGNITION | | | | + + + + + documented in this encounter Visit Diagnoses + + | Diagnosis | + + | Back pain, unspecified back location, unspecified back pain laterality, unspecified | | chronicity | + + documented in this encounter"
--- OUTSIDE RECORDS SUMMARY | ~2019-02-23 | XMS | Encounter Summary ---
Demographics + + + | Address | [address] | | | [place] [address] | + + + | Home Phone | | + + + | Preferred Language | Unknown | + + + | Marital Status | | + + + | Voodoo Affiliation | NRP | + + + [...] Team Providers + +------+ + | Care Armature Varnisher Name | Role | Phone | + +------+ + | Kait Velazquez MD | PCP | | + +------+ + Reason for Referral Consult to [place] (Routine) +--------+--------+ + + + + | Status | Reason | Specialty | Diagnoses / | Referred By | Referred To | | | | | Procedures | Contact | Contact | +--------+--------+ + + + + | Closed | | Neurological | Diagnoses | Sanjay Finnegan | Doug | | | | Surgery | Lumbar | MD [address] | Neurosurgery | | | | | degenerative | [address] | [address] | | | | | disc | [address] | [address] | | | | | disease | [place], [facility] [address] | | | | | Lumbar | [place] [address] | [place], [place] | | | | | foraminal | Phone: | [phone] | | | | | stenosis | [phone] | Phone: | | | | | Other | | [phone] | | | | | idiopathic | | Fax: | | | | | scoliosis, | | [phone] | | | | | lumbar | | | | | | | region | | | | | | | Other | | | | | | | spondylosis | | | | | | | with | | | | | | | radiculopath | | | | | | | y, lumbar | | | | | | | region | | | | | | | Procedures | | | | | | | REQUEST TO | | | | | | | SURGERY | | | | | | | SHIP SCRAPER | | | | | | | MO LUMBAR | | | | | | | SPINE FUSN | | | | | | | INCLUDE | | | | | | | LAMINECTOMY | | | | | | | AND OR | | | | | | | DISCECTOMY | | | | | | | MO SPINE | | | | | | | FUSN,POST | | | | | | | TECH,EA | | | | | | | ADDNL SGMT | | | | | | | MO LUMBAR | | | | | | | SPINE | | | | | | | FUSION,ANTER | | | | | | | APPRCH MO | | | | | | | INSERT VERT | | | | | | | FIX | | | | | | | DEV,POST,3-6 | | | | | | | SGMTS MO | | | | | | | LAMINEC/FACE | | | | | | | TECT/FORAMIN | | | | | | | ,LUMBAR MO | | | | | | | LAMINEC/FACE | | | | | | | TECT/FORAMIN | | | | | | | ,EACH ADDNL | | | | | | | MO SPIN | | | | | | | BONE | | | | | | | ALLOGRFT | | | | | | | MORSELIZED | | | | | | | MO SCAN PROC | | | | | | | SPINAL | | | +--------+--------+ + + + + Reason for Visit + + + | Reason | Comments | + + + | New patient | Lumbar | | consultation | | + + + Consultation (Routine) + +--------+ + + + + | Status | Reason | Specialty | Diagnoses / | Referred By | Referred To | | | | | Procedures | Contact | Contact | + +--------+ + + + + | Pending | | Neurological | | Non-[facility] | [facility] | | Review | | Surgery | | Epic Dept | Neurosurgery | | | | | | | [address] | [address] | | | | | | | [address] | | | | | | | [place], [place] | | | | | | | [address] | | | | | | | Phone: | | | | | | | [phone] | | | | | | | Fax: | | | | | | | [phone] | + +--------+ + + + + Encounter Details +--------+---------+ + + + | Date | Type | Department | Care Team | Description | +--------+---------+ + + + | 11/19/ | Office | [facility] | Sanjay Finnegan MD | Lumbar degenerative | | 2019 | Visit | Neurosurgery at [address] | [address] | disc disease | | | | [address] | [address] | (Primary Dx); Lumbar | | | | [address] | [place] [address] | foraminal stenosis; | | | | [place], [place] | [phone] | Other idiopathic | | | | [address] | | scoliosis, lumbar | | | | [phone] | | region; Other | | | | | | spondylosis with | | | | | | radiculopathy, | | | | | | lumbar region | +--------+---------+ + + + Social History [...] + + + | Blood Pressure | 121/70 | 11/19/2018 9:08 AM | | | | | PDT | | + + + + + | Pulse | 71 | 11/19/2018 9:08 AM | | | | | PDT | | + + + + + | Temperature | 36.8 C (98.3 F) | 11/19/2018 9:08 AM | | | | | PDT | | + + + + + | Respiratory Rate | - | - | | + + + + + | Oxygen Saturation | 93% | 11/19/2018 9:08 AM | | | | | PDT | | + + + + + | Inhaled Oxygen | - | - | | | Concentration | | | | + + + + + | Weight | 124 kg (273 lb 5.9 | 11/19/2018 9:08 AM | | | | oz) | PDT | | + + + + + | Height | 175.3 cm (5' 9") | 11/19/2018 9:08 AM | | | | | PDT | | + + + + + | Body Mass Index | 40.37 | 11/19/2018 9:08 AM | | | | | PDT | | + + + + + documented in this encounter Progress Notes Sanjay Finnegan MD - 11/19/2018 9:00 AM PDTFormatting of this note might be 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 Sanjay Finnegan MD [place] [address] [address] [address] NEUROSURGERY HISTORY AND PHYSICAL EXAMINATION CHIEF COMPLAINT: New patient consultation (Lumbar) REFERRING PROVIDER: Sanjay Finnegan MD HISTORY OF PRESENT ILLNESS: The patient is a 73 y.o. male with the complaint of back and left leg pain and foot numbnes s symptoms that began many years ago. The patient describes increasing pain to the point lavon t it is daily and limits most of his activities. The symptoms have been gradually worsening. He rates the pain as moderate most days but inc reases now to severe frequently. The symptoms are continuous. He describes the pain as sharp , shooting, dull and throbbing. The patient describes leg symptoms that occur on both sides but worse on the left. The leg symptoms account for 25% of his symptoms. The leg symptoms are constant, and the symptoms tr shree from the back to the posterior buttock region. The patient also describes numbness of t he feet and weakness of the legs. The patient does not report any change in bowel or bladder function recently. His symptoms improve with changing positions and sitting. His symptoms worsen with standing, walking, kneeling and twisting. He has tried Ablations, PT, Opioids, NSAIDS and Injections. The patient is not currently ta donald opioids. These measures used to work but are now failing. PAST MEDICAL HISTORY: Past Medical History: Diagnosis Date Arthritis Bleeding tendency (HCC) BP (high blood pressure) Diabetes (HCC) Heart disease High cholesterol Sleep apnea Thyroid disorder PAST SURGICAL HISTORY: Past Surgical History Procedure Laterality Date Knee surgery 2013, 2015 Total replacement of left shoulder joint Femur surgery Left 1977 Coronary stent placement 2016 CURRENT MEDICATIONS: No current outpatient medications on file. No current facility-administered medications for this visit. ALLERGIES: Allergies Allergen Reactions Formaldehyde Dyspnea Iodinated Contrast Media Rash and Dyspnea Trouble Breathing Iodine Anaphylaxis Lovastatin Anaphylaxis, Diarrhea and Nausea and Vomiting Aches and pains Aches and pains Nut - Unspecified Dyspnea Seafood, shellfish Penicillins Unknown, Rash and Dyspnea Does not remember Sodium Chloride Dyspnea "hallogens" Hydrocodone-Acetaminophen Rash Does not remember Niacin Unknown Doesn't recall Povidone-Iodine Urticaria Sulfa (Sulfonamide Antibiotics) Unknown SOCIAL HISTORY: Social History Tobacco Use Smoking status: Former Smoker Last attempt to quit: 1990 Years since quittin.6 Smokeless tobacco: Never Used Substance Use Topics Alcohol use: Not Currently FAMILY HISTORY: Family History Problem Relation Hypertension Mother Heart Disease Mother Cancer Mother Diabetes Mother REVIEW OF SYSTEMS: Constitutional: Positive for malaise/fatigue. HENT: Negative. Eyes: Wear glasses Respiratory: Negative. Cardiovascular: Positive for palpitations. Gastrointestinal: Negative. Genitourinary: Negative. Musculoskeletal: Negative. Skin: Negative. Neurological: Positive for weakness. Numbness Endo/Heme/Allergies: Bruises/bleeds easily. Ankle swelling Psychiatric/Behavioral: Negative. . PHYSICAL EXAMINATION: Blood pressure 121/70, pulse 71, temperature 36.8 C (98.3 F), height 1.753 m (5' 9"), w eight 124 kg (273 lb 5.9 oz), SpO2 93 %. Body mass index is 40.37 kg/m. GENERAL: Antonio Azevedo is in no acute distress with unlabored respirations. The patient d oes appear uncomfortable throughout the exam today. HEENT: Head: Normocephalic/atraumatic with no areas of recent trauma. Eyes: Normal sclerae without icterus. Ears: No drainage or tenderness. Nasopharnyx: Clear without drainage. Oropharnyx: Clear without erythema. NECK (ANTERIOR): Supple and without palpable masses. CHEST: Clear to ausculation without crackles or wheeze. HEART: Regular rate and rhythm without murmurs. ABDOMEN: Soft, non-tender, non-distended, and without palpable masses. The patient is obese . SPINE: There is no tenderness of there cervical or thoracic spine. The lumbar spine shows there is tenderness in the midline of the L4-S1 levels. To palpation , there is no significant myofascial tenderness. There is no significant pain to provacative testing of the SI joint. There is no major deformity noted. EXTREMITIES: No cyanosis, clubbing, or edema. Distal pulses are diminished but palpable. NEUROLOGICAL EXAM: MENTAL STATUS: The patient is awake, alert, and oriented. He follows simple and complex commands. His speech is fluent, he comprehends speech well, and he repeats well. He has no apparent deficits with short or longterm memory. CRANIAL NERVES: II: Acuity is intact. Uriarte are full to confrontation. III, IV, : The pupils are reactive. Extraocular movements are intact. No ptosis is note d. V: Facial sensation is intact and symmetric. VII: Facial movements are symmetric. VIII: Hearing is intact bilaterally. IX, X: The uvula and palate move appropriately. XI: Shrug is equal bilaterally. XII: Tongue protrusion is midline. MOTOR EXAM: (5 IS NORMAL) * Indicates pain limited MUSCLE/ MOVEMENT: RIGHT LEFT Deltoids 5 5 Biceps 5 5 Triceps 5 5 Wrist Flexion 5 5 Wrist Extension 5 5 Median Intrinsics 5 5 Ulnar Intrinsics 5 5 Excelsior Machine Operator Strength 5 5 Hip Flexion 5 5 Hip Extension 5 5 Knee Flexion 5 5 Knee Extension 5 5 Dorsiflexion 5 4 Extensor Hallicus Longus 5 4 Plantarflexion 5 5 SENSORY EXAM: Sensory exam shows diminished sensation to light touch over the feet bilaterally. REFLEXES: (2 OR 2+ IS NORMAL) REFLEX: RIGHT LEFT BICEPS 1 1 BRACHIORADIALIS 1 1 TRICEPS 1 1 PATELLAR 1 1 ACHILLES 1 1 RIZVI'S Absent Absent PLANTAR Down Down GAIT: Gait reveals a limp on the left leg. TEST AND RADIOGRAPHIC REVIEW: The patient's imaging was reviewed in detail with the patient today during the visit. The M RI from 2019 shows L4-5 and L5-S1 DDD with increased foraminal stenosis on the right at L5-S 1 from 2017. There is bilaterally foraminal narrowing on the left at L4-5 and L5-S1. Lumbar x-rays show severe degenerative disc disease at L4-S1. ASSESSMENT: NEUROSURGICAL DIAGNOSES: 1. Lumbar degenerative disc disease 2. Lumbar foraminal stenosis 3. Other idiopathic scoliosis, lumbar region 4. Other spondylosis with radiculopathy, lumbar region GENERAL DIAGNOSES: Past Medical History: Diagnosis Date Arthritis Bleeding tendency (HCC) BP (high blood pressure) Diabetes (HCC) Heart disease High cholesterol Sleep apnea Thyroid disorder PLAN: Antonio Azevedo presented today, and it was a pleasure seeing this patient and assessing hi s neurologic problems. The patient has L4-S1 DDD and is symptomatic. The patient has progressive symptoms despite non-operative measures. I had a lengthy discussion with the patient about his options for care including surgical a nd non-surgical options. In discussing the surgical options, we discussed in detail the patient's options for a comb ined LAIF at L4-5 and a TLIF at L5-S1 with posterior instrumentation using anterior and post erior approaches. The indications for fusion are the need to remove greater than 50% of the facet for adequate decompression at L5-S1 which would require stabilization and fusion. The fusion at L4-5 is indicated for severe DDD correction of his early scoliotic deformity that is contributing to his foraminal stenosis. The patient understands that in most instances the recovery from surgery can be lengthy and sometimes difficult. We discussed the risks, alternatives, and benefits to surgical intervention with Mr. Ely dumas. These risks included but were not limited to , stroke, heart attack, numbness, wea kness, paralysis, failure of fusion, failure of hardware, subsidence, adjacent segment degen eration, cerebrospinal fluid leak, bleeding, infection, injury to surrounding tissues and or monico, injury from positioning, injury to the nerves, difficulty with breathing, difficulty w ith swallowing, difficulty with voice change, and need for additional surgery. Surgical options were discussed and the technique to be employed was described in detail to him. All his questions were answered. We discussed that the goal of the surgery is to prevent progression of his disease, but it is not considered a cure. We also discussed that although some patients may obtain 100% sym ptom relief, it is realistic to anticipate that some symptoms will continue postoperatively despite a successful surgery. We also discussed that there is no guarantee that surgery will provide improvement in his c ondition, and indeed may even worsen the symptoms. We also discussed that in the course of the procedure the operative plan may be altered to include more, less, or different levels d epending upon findings in order to provide him with the best possible outcome. I am prescribing a brace before surgery to improve his stability now to support his weak mu scles and to reduce pain by restricting mobility. For multiple (more than 1 level) fusions, I am also prescribing a bone growth stimulator po stoperatively. This is to improve the probability and rate of fusion. The patient would like to be considered for surgery as discussed and would like us to seek authorization and clearance for the operation.. 11/19/2018 11:21 AM Natalya Izaguirre MA - 09/2018 9:00 AM PDTReview of Systems Constitutional: Positive for malaise/fatigue. HENT: Negative. Eyes: Wear glasses Respiratory: Negative. Cardiovascular: Positive for palpitations. Gastrointestinal: Negative. Genitourinary: Negative. Musculoskeletal: Negative. Skin: Negative. Neurological: Positive for weakness. Numbness Endo/Heme/Allergies: Bruises/bleeds easily. Ankle swelling Psychiatric/Behavioral: Negative. documented in this enco unter Plan of Treatment +--------+---------+ + + + | Date | Type | Specialty | Care Team | Description | +--------+---------+ + + + | 02/28/ | Office | Neurological Surgery | Cosme Baker, | | | 2018 | Visit | | [facility] [address] [place] [address] [place] | | | | | | [place], [place] | | | | | | [address] | | | | | | | | +--------+---------+ + + + documented as of this encounter Procedures + +--------+ + + + | Procedure Name | Priori | Date/Time | Associated Diagnosis | Comments | | | ty | | | | + +--------+ + + + | OUTSIDE RADIOLOGY - | | 02/02/2017 | | Results for this | | MRI | | 12:00 AM | | procedure are in the | | | | PDT | | results section. | + +--------+ + + + documented in this encounter Results OUTSIDE RADIOLOGY - MRI (02/02/2017 12:00 AM PDT) + + + | Narrative | Performed At | + + + | | | + + + documented in this encounter Visit Diagnoses + + | Diagnosis | + + | Lumbar degenerative disc disease - Primary Degeneration of lumbar or lumbosacral | | intervertebral disc | + + | Lumbar foraminal stenosis Spinal stenosis, lumbar region, without neurogenic | | claudication | + + | Other idiopathic scoliosis, lumbar region | + + | Other spondylosis with radiculopathy, lumbar region | + + documented in this encounter
--- OUTSIDE RECORDS SUMMARY | ~2019-02-23 | XMS | Encounter Summary ---
Demographics + + + | Address | [address] | | | [place] [address] | + + + | Home Phone | | + + + | Preferred Language | Unknown | + + + | Marital Status | | + + + | Taoist Affiliation | Unknown | + + + | Race | Unknown | + + + | Ethnic Group | Unknown | + + + Author + + + | Author | [facility] | | | and [place] | + + + | Organization | [facility] | | | [...] Team Providers + +------+ + | Care Transition Mgr Rn Name | Role | Phone | + +------+ + | Paul Boss MD | PCP | | + +------+ + Encounter Details +--------+ + + + + | Date | Type | Department | Care Team | Description | +--------+ + + + + | 12/27/ | Orders Only | [facility] | Sanjay Finnegan MD | Back pain, | | 2017 | | NEUROSURGERY [address] | [address] | unspecified back | | | | [address] | [place] [address] | location, | | | | [place] | [phone] | unspecified back | | | | [address] | | pain laterality, | | | | [phone] | | unspecified | | | | | | chronicity (Primary | | | | | | Dx) | +--------+ + + + + Social History + +-------+ +--------+------+ | Tobacco Use | Types | Packs/Day | Years | Date | | | | | Used | | + +-------+ +--------+------+ | Never Assessed | | | | | + +-------+ +--------+------+ + + + | Sex Assigned at [...] Not on filedocumented as of this encounter Results XR Lumbar Spine 4 [...] back pain laterality, unspecified | | chronicity - Primary | + + documented in this encounter"
--- OUTSIDE RECORDS SUMMARY | ~2019-02-23 | XMS | Encounter Summary ---
Demographics + + + | Address | [address] | | | [place] [address] | + + + | Home Phone | | + + + | Preferred Language | Unknown | + + + | Marital Status | | + + + | Anabaptism Affiliation | Unknown | + + + | Race | Unknown | + + + | Ethnic Group | Unknown | + + + Author + + + | Author | [facility] | | | and [place] | + + + | Organization | [facility] | | | and [...] Team Providers + +------+ + | Care Process Safety Specialist Name | Role | Phone | + [...] | Lumbar | [place], | [address] | | | | | spondylosis | Tahir T, MD | [place], | | | | | Procedures | [address] | [place] | | | | | [place] IN[place] | [address] [place] | [address] | | | | | DX/THER AGNT | [place], [place] | Phone: | | | | | [place] | [address] | [phone] | | | | | [address], | Phone: | Fax: | | | | | LUMBAR/SAC, | [phone] | [phone] | | | | | [address] | Fax: | | | | | | [place] | [phone] | | | | | | TRIAMCINOLON | | | | | | | E ACET INJ | | | | | | | NOS, 10 MG | | | | | | | Apt. 05/10/17 | | | | | | | Bilat. | | | | | | | L4-L5 Facet | | | | | | | Ref. Atul | | | | | | | [place] | | | +--------+--------+ + + + + Encounter Details +--------+ + + + + | Date | Type | Department | Care Team | Description | +--------+ + + + + | 05/10/ | Hospital | [facility] | Carey, | Lumbar spondylosis | | 2018 | Encounter | MED CTR XRAY [address] | [address] | | | | | [address] [place] | [facility], | | | | | [place] [address] | [place] [address] | | | | | [phone] | [phone] | | | | | | | | | | | | Corporate Officer, [employer] | | +--------+ + + + [...] +---------+ + + | Blood Pressure | 151/76 | 05/10/2017 12:15 PM | | | | | PST | | + +---------+ + + | Pulse | - | - | | + [...] + +--------+ + + + | FL FACET INJECTION | Routin | 05/10/2017 | Lumbar spondylosis | Results for this | | LUMBAR SACRAL | e | 12:01 PM | | procedure are in the | | | | PST | | results section. | + +--------+ + + + | LABS - EXTERNAL SCAN | | 05/10/2017 | | Results for this | | | | 12:00 AM | | procedure are in the | | | | PST | | results section. | + +--------+ + + + documented in this encounter Results FL Facet Injection Lumbar Sacral (05/10/2017 12:01 PM PST) + + | Specimen | + + | | + + + + -+ | Narrative | Performed At | + + -+ | 05/10/2017 | [facility] | | Bilateral Lumbar Facet Steroid Injection Diagnosis: Lumbar Spondylosis | | | ICD-10 Code M47.816 Antonio Azevedo Jr. presents to the | | | fluoroscopy suite for fluoroscopically-guided bilateral L4-L5 facet | | | injections as part of conservative management for chronic pain with | | | lumbar spondylosis.Based on the patient's history, physical | | | examination and review of the available imaging the patient has been | | | diagnosed with pain coming primarily from the lumbar facet joints. | | | The patient's pain has been moderate to severe, rated as an 8 or | | | higher usually on a 0-10 scale. The pain is impacting activities of | | | daily living including standing, sitting, walking, running, kneeling, | | | bending and twisting. The patient has been dealing with this pain for | | | more than 3 months and has failed conservative treatment with | | | medications, PT and a home exercise program. He cannot take NSAIDS | | | as he is on Coumadin and Plavix therefore therapeutic facet injections | | | was ordered today by Thomas Lawler PA-C targeting the bilateral L4-L5 | | | facet joints. After informed consent was obtained, the patient | | | laid in the prone position on the fluoroscopy [...] 22-gauge spinal needle was inserted into the superior | | | portion of each facet under fluoroscopic guidance. Confirmation into | | | the joint spaces with iodinated contrast could not be performed due to | | | a dye allergy. Once the needles were in position based on imaging | | | studies a combination of 1 mL of 1% lidocaine and 1 mL of 10 mg/mL | | | dexamethasone was infused into the joints. The patient tolerated the | | | procedure well without complications. Pre- and post-procedure blood | | | pressures were stable. The patient was given verbal as well as written | | | follow-up instructions. The patient was reexamined after the | | | procedure. He reported moderate improvement of his symptoms after | | | the procedure. The patient's symptoms were somewhat improved even | | | with bending and twisting maneuvers. The patient was instructed to | | | keep a detailed pain diary of the response to treatment and will | | | return the pain diary to our office 2 weeks after the procedure. Prior | | | to the start of the procedure, the following were performed and/or | | | verified, including correct patient identity, correct site/side marked | | | and visible, agreement on the procedure to be done, correct patient | | | positioning and an accurate procedure consent form. Any safety | | | precautions based on clinical history and/or medication use have been | | | addressed. I personally performed the procedure above. Estimated | | | blood loss: MinimalComplications: NoneFindings: As expectedAnesthesia: | | | Local 1% Lidocaine | | |the procedure. | | | | | |Prior to the start of the procedure, the following were performed and/or | | |verified, including correct patient identity, correct site/side marked and | | |visible, agreement on the procedure to be done, correct patient | | |positioning and an accurate procedure consent form. Any safety precautions | | |based on clinical history and/or medication use have been addressed. I | | |personally performed the procedure above. | | | | | | | | |Estimated blood loss: Minimal | | |Complications: None | | |Findings: As expected | | |Anesthesia: Local 1% Lidocaine | | | | | | | | + + -+ + +---------+ + + | Performing | Address | City/State/[facility] | Phone Number | | Organization | | | | + +---------+ + + | [facility] | | | | + +---------+ + + LABS - EXTERNAL SCAN (05/10/2017 12:00 AM PST) + + + | Narrative | Performed At | + + + | Ordered by an | | | unspecified provider. | | + + + documented in this encounter Visit Diagnoses + + | Diagnosis | + + | Lumbar spondylosis Lumbosacral spondylosis without myelopathy | + + documented in this encounter Administered Medications + +--------+ +-------+------+------+ | Medication Order | MAR | Action | Dose | Rate | Site | | | Action | Date | | | | + +--------+ +-------+------+------+ | dexamethasone (PF) 10 mg/mL | Given | 05/10/19 | 10 mg | | | | injection 10 mg 10 mg, | | 18 12:10 | | | | | Intra-articular, ONCE, Tiara | | PM PST | | | | | 05/10/17 at 1230, For 1 dose | | | | | | + +--------+ +-------+------+------+ +---+---+ | | | +---+---+ + +-------+ +-------+---+---+ | lidocaine (PF) 1% injection 2 | Given | 05/10/19 | 2 mLs | | | | mL 2 mL, Other, ONCE, Tiara | | 18 12:10 | | | | | 05/10/17 at 1230, For 1 dose | | PM PST | | | | + +-------+ +-------+---+---+ +---+---+ | | | +---+---+ + +-------+ +--------+---+ + | lidocaine buffered 1% injection | Given | 05/10/19 | 10 mLs | | Other | | 10 mL 10 mL, Intradermal, ONCE, | | 18 12:05 | | | (Comment | | Tiara 05/10/17 at 1230, For 1 dose | | PM PST | | | ) | + +-------+ +--------+---+ + +---+---+ | | | +---+---+ documented in this encounter"
--- OUTSIDE RECORDS SUMMARY | ~2019-02-23 | XMS | Encounter Summary ---
Demographics + + + | Address | [address] | | | [place] [address] | + + + | Home Phone | | + + + | Preferred Language | Unknown | + + + | Marital Status | | + + + | Latter-Day Affiliation | NRP | + + + [...] Team Providers + +------+ + | Care Tumor Registrar Name | Role | Phone | + +------+ + | Kait Velazquez MD | PCP | | + +------+ + Reason for Visit + + + | Reason | Comments | + + + | History and physical | Lumbar | | examination | | + + + Encounter Details +--------+---------+ + + + | Date | Type | Department | Care Team | Description | +--------+---------+ + + + | 01/23/ | Office | [facility] | Cosme Baker, | Lumbar degenerative | | 2019 | Visit | [facility] at [facility] | PA-C [address] | disc disease | | | | [address] | [place], [place] | (Primary Dx); Lumbar | | | | [address] | [id number] | foraminal stenosis; | | | | [place], [place] | | Other spondylosis | | | | [phone] | | with radiculopathy, | | | | [phone] | | lumbar region; Other | | | | | | idiopathic | | | | | | scoliosis, lumbar | | | | | | region; Back pain, | | | | | | unspecified back | | | | | | location, | | | | | | unspecified back | | | | | | pain laterality, | | | | | | unspecified | | | | | | chronicity; | | | | | | Hypertension, | | | | | | unspecified type; | | | | | | APRIL (obstructive | | | | | | sleep apnea); | | | | | | Hypothyroidism, | | | | | | unspecified type; | | | | | | Atrial fibrillation, | | | | | | unspecified type | | | | | | (HCC) | +--------+---------+ + + + Social History [...] + + + | Blood Pressure | 125/78 | 01/23/2019 1:21 PM | | | | | PDT | | + + + + + | Pulse | 88 | 01/23/2019 1:21 PM | | | | | PDT | | + + + + + | Temperature | 36.8 C (98.2 F) | 01/23/2019 1:21 PM | | | | | PDT | | + + + + + | Respiratory Rate | - | - | | + + + + + | Oxygen Saturation | 96% | 01/23/2019 1:21 PM | | | | | PDT | | + + + + + | Inhaled Oxygen | - | - | | | Concentration | | | | + + + + + | Weight | 126.4 kg (278 lb | 01/23/2019 1:21 PM | | | | 10.6 oz) | PDT | | + + + + + | Height | 175.3 cm (5' 9") | 01/23/2019 1:21 PM | | | | | PDT | | + + + + + | Body Mass Index | 41.15 | 01/23/2019 1:21 PM | | | | | PDT | | + + + + + documented in this encounter Patient Instructions Patient Instructions Cosme Baker PA-C - 01/23/2019 1:30 PM Eve call you chaka fam other labs results once reviewed, including the Nasal culture. Empty stomach before surgery On the day BEFORE your surgery, drink plenty of fluids and stay well hydrated NOTHING to eat or drink after midnight the night before surgery, or 8 hours prior to tristen rajan. This includes water, coffee, candy, mints, gum. Medications Instructions: Hold ASPIRIN, NSAIDS (e.g. ADVIL, MOTRIN, IBUPROFEN, ALEVE), vitamin E, herbal supplements, [place] 3 fish oil 10 days before surgery depending on surgeon's instructions. Hold diclofenac 10 days before surgery STOP ELIQUIS 48 HRS BEFORE SURGERY (FULL 2 DAYS). LAST DOSE ON 01/31 Take all your usual medications before surgery as you normally do until the morning of surg sahil, then follow the instructions below: TAKE ONLY the following medications with a sip of water on the morning of surgery: levothyroxine If you need a pain medication for general purposes, use Tylenol as directed. OK to take it even on the morning of surgery, if needed. If you are in doubt about any medications that you are taking, please contact our office . Other Important Guidelines Do not shave the surgical area Do not smoke, drink alcohol or use recreational drugs for 24 hours before your surgery Watch for any change in your health condition. Let your surgeon know right away if you do not feel well. Do not wear makeup, perfume, lotions, deodorant, powder or hairspray. Do not wear any jewelry to the hospital. Wear loose, comfortable clothing. Leave all your valuables at home. Allow enough travel time so you re not late for your check in for surgery. Take a bath or shower and remember to shampoo your hair using your usual hair product be fore your arrival at the hospital. Please remember to brush your teeth the night before and the morning of your procedure. Preventing post op complications while you are in the hospital Use an incentive spirometer or deep breathe to keep your lungs working properly an d to help prevent respiratory complications. It helps you take long, deep breaths. Use i t at least once every hour while you are awake. Leg and feet exercises will maintain good circulation and help prevent blood clots in yo ur legs. Sometimes your doctor will order air compression stockings. Compressed air help s the circulation in your legs. Walking and moving will help stimulate normal circulation and deep breathing. After yo ur surgery, your nurse may ask you to sit, stand or walk. Going Home Your surgical team will decide when you are medically ready to go home. If you are released to go home on the same day as your procedure/surgery please note the following: ? You will not be able to drive. ? You will be required to have a competent person drive you or accompany you by taxi or pub lic transportation on the day of discharge. ? It is also required that you have a competent person assist you and look after you on the first night after you have undergone regional blocks (72 hours for patients going home with regional block pump), deep sedation, and/or general anesthesia. If you stayed in the hospital after surgery, please arrange for your ride to come for yo u around 9AM on the day your doctor says you can go home. Check out time is 11AM. Directions for Pre-Surgical Showering: Proper skin cleansing prior to surgery can reduce the risk of surgical site infection. We highly recommend that you obtain a bottle of 4.0% Chlorhexidine Gluconate solution from [facility] [employer], or your local drug store and follow the shower/cleansing i nstructions below before your surgery. (*Do not use if you are allergic to Chlorhexidine or other ingredient in this product.) Shower on the night before surgery- wash your face and genitals with your regular soap and water only; rinse with warm water. Apply 2 oz (half bottle) of Chlorehexidine Gluconate umang ution to body surface (avoid eyes, nose, ears and genitals), rub it in well, and wait two mi nutes before rinsing. After showering, allow your skin to air dry, or use a freshly laundered towel to dry your s kin. Do not apply any lotions, moisturizers or makeup after using this product. Wear clean bed clothes and sleep in clean sheets. During at least one shower (night before or morning of), wash hair with your normal hair ca re product. This should be done first, prior to applying the Chlorhexidine Gluconate soluti on to your skin. Repeat shower on the morning of surgery- wash your face and genitals with your regular soap and water only; rinse with warm water. Apply 2 oz. (half bottle) of Chlorhexidine Gluconat e solution to body surface (avoid eyes, nose, ears, and genitals); rub it in well, and wait two minutes before rinsing. After showering, allow your skin to air dry, or use a freshly laundered towel to dry your s kin. Dress in clean clothes. Wash your hands often. This helps lesson the amount of germs on your hands that would pass to the surgical site before and after surgery. Please use caution while showering, as the soap can make the shower suleman extra slippery . documented in this encounter Progress Notes Cosme Baker PA-C - 01/23/2019 1:30 PM PDT Neurosurgery - H&P Chief Complaint: History and physical examination (Lumbar ) Referring Provider: Kait Velazquez MD History of Present Illness: Mr. Azevedo, a 73 y.o. male, was seen today for a neurosurgical H&P in preparation for [facility]. 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 He presented to the office on November 2018 with complaints of lower back and LEFT leg pain a nd LEFT foot numbness symptoms that began many years ago. His symptoms have been gradually w orsening. Today, he endorses LBP and LLE pain ranging from 6/10 to 9/10. It is both sharp and aching and can be intermittent. His pain is exacerbated by standing and walking or by sitting wi thout support. He feels better sitting in his recliner or supine. The lower back pain accounts for 75% of his pain; the LEFT leg 25%, similar to his last off ice visit. He denies saddle anesthesia; he denies bowel or bladder incontinence. 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 He is on Eliquis for these diagnoses. He was seen on 12/26/18 by Mercedes MANCINI. CMP, CBC , TSH, and lipid panel were ordered. Results not available today. He was seen earlier today by Dr Cody in [facility]. He was felt to be optimized for tristen rajan pending review of labs and ECHO. Documentation of that visit as follows: "OBSTRUCTIVE SLEEP APNEA: Compliant with cpap CORONARY ARTERY DISEASE: JOSH to mid-LAD (2017). Asymptomatic. Seen at cardiology office ([place]) last month for preop eval without issues. TTE done earlier this month in [place], results requested. Appears stable and optimized. PAROXYSMAL A-FIB: Currently in sinus rhythm. On apixaban + asa (for recurrent DVTs as wel l). Plan to hold apixaban 48 hrs prior to surgery and ASA 7-10 days. RECURRENT DVT: 2 provoked episodes in left leg (1976, 1982) anad 1 unprovked in right leg (2006), had been on coumadin until switching to asa + apixaban in 2017. Had hematology cons ultation with Dr. Mahni Marks ([place], [place]) on 10/30/18 for periop erative anticoagulation management. He states the following: "Regarding the proposed surge ry, typically discontinuation of the ODAC (oral direct anticoagulant) is done 2-3 days befor e surgery, then resumed 2-3 days afterwards for major procedures. Certainly aspirin would ne ed to be discontinued before the procedure as well. While bridging with low molecular weight heparin is an option, that will increase the risk of perioperative bleeding and that at mos t would normally be considered postoperatively until the ODAC is resumed." The recommendati on seems to be in agreement with the current plan, which is to stop apixaban and asa preop w ithout bridging. TYPE 2 DIABETES: Diet controlled. Check A1c today." Review of Systems Constitutional: Positive for malaise/fatigue. General tiredness-chronic HENT: Positive for hearing loss. No hearing aids (tinnitus) Eyes: Failing vision, wear glasses Respiratory: Negative. Cardiovascular: Negative. Gastrointestinal: Negative. Genitourinary: Negative. Musculoskeletal: Negative. Skin: Negative. Neurological: Positive for tingling and weakness. RElated to the back Numbness, lack of coordination, problems walking, loss of balance Endo/Heme/Allergies: Bruises/bleeds easily. On anticoagulation Ankle swelling Psychiatric/Behavioral: Anxiety Allergies Allergen Reactions Formaldehyde Dyspnea Iodinated Contrast Media Rash and Dyspnea Trouble Breathing Iodine Anaphylaxis Lovastatin Anaphylaxis, Diarrhea and Nausea and Vomiting Aches and pains Aches and pains Nut - Unspecified Dyspnea Seafood, shellfish Penicillins Unknown, Rash and Dyspnea Does not remember Sodium Chloride Dyspnea "hallogens" Hydrocodone-Acetaminophen Rash Does not remember Niacin Unknown Doesn't recall Povidone-Iodine Urticaria Sulfa (Sulfonamide Antibiotics) Unknown Current Outpatient Medications Medication Sig amitriptyline 75 mg oral tablet Take by mouth once daily in the evening. aspirin EC 81 mg oral tablet,delayed release (DR/EC) Take 81 mg by mouth once daily in the morning. cholecalciferol (Vitamin D3) 1,000 unit oral capsule Take by mouth. diclofenac 1 % topical gel APPLY NICKEL SIZED AMOUNT TO PAINFUL AREA AND RUB INTO SKIN UNTIL... (REFER TO PRESCRIPTION NOTES). diphenhydrAMINE 25 mg oral capsule Take 25 mg by mouth. ELIQUIS 5 mg oral tablet take 1 tablet by mouth twice a day ezetimibe 10 mg oral tablet take 1 tablet by mouth once daily levothyroxine 50 mcg oral tablet Take 50 mcg by mouth before breakfast. lisinopril 10 mg oral tablet Take 10 mg by mouth once daily. metoprolol succinate 50 mg oral tablet extended release 24 hr Take 50 mg by mouth once daily at bedtime. nitroglycerin 0.4 mg sublingual tablet, sublingual Place 0.4 mg under tongue. No current facility-administered medications for this visit. He has never used the nitroglycerin Past Medical History: Diagnosis Date Arthritis Bleeding tendency (HCC) BP (high blood pressure) Diabetes (HCC) Heart disease High cholesterol Sleep apnea Thyroid disorder Past Surgical History Procedure Laterality Date Knee surgery 2013, 2015 Total replacement of left shoulder joint Femur surgery Left 1977 Coronary stent placement 2016 Social History Tobacco Use Smoking status: Former Smoker Last attempt to quit: 1990 Years since quittin.7 Smokeless tobacco: Never Used Substance Use Topics Alcohol use: Not Currently Family History Problem Relation Hypertension Mother Heart Disease Mother Cancer Mother Diabetes Mother Heart Attack Father Arthritis Sister Atrial fibrillation Sister No Known Problems Brother Lung Cancer Sister Physical Exam: BP 125/78 (BP Location: Right upper arm, Patient Position: Sitting) | Pulse 88 | Temp 36. 8 C (98.2 F) (Oral) | Ht 1.753 m (5' 9") | Wt 126.4 kg (278 lb 10.6 oz) | SpO2 96% | BMI 41.15 kg/m | BSA 2.48 m Body mass index is 41.15 kg/m. General: NAD, speech fluent, mood and behavior within normal limits HEENT: NCAT; trachea midline Resp: non-labored Neurological: CRANIAL NERVES II PERRL III, IV, Extraocular movements intact. V Facial sensation intact to light touch. VII Facies symmetric. VIII Hearing WNL. IX, X Normal phonation XI Good SCM and Trapezius muscle function bilaterally. XII Tongue protrudes in midline. Musculoskeletal: Gait: Antalgic to the LEFT. He can elevate on the heels and on the toes. Tone: Normal tone in upper and lower extremities MOTOR SCORE LEFT RIGHT C5 (Shoulder Abduct) 5 5 C6 (Elbow Flex) 5 5 C7 (Elbox Ext) 5 5 C8 (Wrist Ext) 5 5 C8 (Cashier Manager) 5 5 T1 (Pinky Abd) 5 5 Hand Intrinsics 5 5 L2 (Hip Flex) 5 5 L3 (Knee Ext) 5 5 L4 (Dorsiflexion) 4 5 L5 (EHL) 4 5 S1 (Plantar Flex) 5 5 TENDON REFLEXES LEFT RIGHT C5-6 (Biceps) 1 1 C6 (Brachioradialis) 1 1 C7-8 (Triceps) 1 1 L3-4 (Knee jerk) Tr Tr S1-2 (Achilles) Tr Tr PATHOLOGIC REFLEXES LEFT RIGHT Sol neg neg Clonus neg neg Sensory: Sensation decreased to light touch in both feet. Labs Reportedly drawn in December at [facility] in [place], [place]. Not available for review at present. MRSA/MSSA Nasal culture: In process Lab Results Component Value Date A1C 6.6 (H) 01/23/2019 Diagnostic Results: EK02/06/2018: Normal sinus rhythm, low voltage QRS to limb leads, V1. Rate 70 bpm, NJ 13 4 ms, QRS 78 ms, QTC 412 ms, old inferior WA, tracing personally reviewed by me EK12/26/2018: Normal sinus rhythm, persistent low voltage QRS to inferior leads consisten t with previous inferior WA, low voltage QRS to limb leads V1, V2. Rate 69 bpm, NJ 140 ms, Q RS 82 ms, QTC 430 ms, tracing personally reviewed by me, and similar morphology to EKG perfo rmed in January 2018 Echocardiogram: Ordered by Cardiology PA - results pending. MRI lumbar spine 10/07/2018 Degenerative lumbar disc disease and spondylosis L4-5 and L5-S1. There is foraminal stenosi s L5-S1 on the RIGHT. There is foraminal stenosis L4-5 and L5-S1 on the LEFT. X-RAY SPINE LUMBOSACRAL 4 VIEWS 11/19/2018 CLINICAL HISTORY: Chronic left-sided back pain. COMPARISON: None. TECHNIQUE: AP view. Lateral views in neutral, flexion and extension. FINDINGS: There is diffuse osseous demineralization. There is levoscoliosis centered at L2-3. There i s no spondylolisthesis or instability. No fracture line is seen. Vertebral body heights are main tained. There is mild loss of intervertebral disc height from L2-3 through L5-S1. There are small t o moderate multilevel endplate spurs throughout the thoracolumbar spine. There is multilevel mid to lower lumbar facet arthropathy. IMPRESSION: 1. No fracture, subluxation or instability. 2. Levoscoliosis. 3. Multilevel spondylosis NEUROSURGICAL DIAGNOSES: 1. Lumbar degenerative disc disease 2. Lumbar foraminal stenosis 3. Other idiopathic scoliosis, lumbar region 4. Other spondylosis with radiculopathy, lumbar region GENERAL DIAGNOSES: Past Medical History: Diagnosis Date Arthritis Bleeding tendency (HCC) BP (high blood pressure) Diabetes (HCC) Heart disease High cholesterol Sleep apnea Thyroid disorder PLAN: Recommendation is for a combined XLIF at L4-5 and a TLIF at L5-S1 with posterior instrument ation using anterior and posterior approaches. The risks included but were not limited to , stroke, heart attack, numbness, weakness, paralysis, failure of fusion, failure of hardware, subsidence, adjacent segment degeneratio n, cerebrospinal fluid leak, bleeding, infection, injury to surrounding tissues and organs, injury from positioning, injury to the nerves, difficulty with breathing, difficulty with sw allowing, difficulty with voice change, and need for additional surgery. Informed consent was signed in the office The patient was informed: No blood thinners for 10 days before surgery. This includes all n on-steroidal anti-inflammatories and anti-platelet medications (Aspirin or any medication th at contains aspirin, Aleve, Advil, Celebrex, Excedrin, Ibuprofen, Fish oil products, Indocin , Naproxen, Fragmen, Plavix supplements, root bear, etc.) At the end of the visit, the patient understood the treatment plan and had no further quest ions. Pre-op labs will require review prior to final clearance, as well as ECHO. He patient has been instructed to discontinue aspirin and diclofenac gel 10 days prior to surgery. He is t o stop Eliquis 2 full days prior to surgery per [facility] recommendations. Prescription for oxycodone 5 mg #15 provided. Addendum: CMP + CBC FROM 01/20/19 REVIEWED FROM OUTSIDE FACILITY: ALL SATISFACTORY (UNDER MEDIA TAB 1 ) Cosme Baker PA-C [facility] Neurosurgery [phone] signed by Cosme Baker PA-C at 01/30/2019 8:01 AM Jordyn Young MA - 01/23/2019 1:30 PM PDTReview of Systems Constitutional: Positive for malaise/fatigue. HENT: Positive for hearing loss. Eyes: Failing vision, wear glasses Respiratory: Negative. Cardiovascular: Negative. Gastrointestinal: Negative. Genitourinary: Negative. Musculoskeletal: Negative. Skin: Negative. Neurological: Positive for tingling and weakness. Numbness, lack of coordination, problems walking, loss of balance Endo/Heme/Allergies: Bruises/bleeds easily. Ankle swelling Psychiatric/Behavioral: Anxiety documented in this e ncounter Plan of Treatment +--------+---------+ + + + | Date | Type | Specialty | Care Team | Description | +--------+---------+ + + + | 02/28/ | Office | Neurological Surgery | Cosme Baker, | | 2018 | Visit | | [facility] [address] | | | | | | [place], [place] | | | | | | [address] | | | | | | | | +--------+---------+ + + + documented as of this encounter Visit Diagnoses + + | Diagnosis | + + | Lumbar degenerative disc disease - Primary Degeneration of lumbar or lumbosacral | | intervertebral disc | + + | Lumbar foraminal stenosis Spinal stenosis, lumbar region, without neurogenic | | claudication | + + | Other spondylosis with radiculopathy, lumbar region | + + | Other idiopathic scoliosis, lumbar region | + + | Back pain, unspecified back location, unspecified back pain laterality, unspecified | | chronicity | + + | Hypertension, unspecified type | + + | APRIL (obstructive sleep apnea) Obstructive sleep apnea (adult) (pediatric) | + + | Hypothyroidism, unspecified type | + + | Atrial fibrillation, unspecified type (HCC) | + + documented in this encounter
--- OUTSIDE RECORDS SUMMARY | ~2019-02-23 | XMS | Encounter Summary ---
Demographics + + + | Address | [address] | | | [place] [address] | + + + | Home Phone | | + + + | Preferred Language | Unknown | + + + | Marital Status | | + + + | Taoism Affiliation | Unknown | + + + | Race | Unknown | + + + | Ethnic Group | Unknown | + + + Author + + + | Author | [facility] | | | and [place] | + + + | Organization | [facility] | | [...] Team Providers + +------+ + | Care Flatwork Folder Name | Role | Phone | + +------+ + | Kait Velazquez MD | PCP | | + +------+ + Reason for Referral Evaluate & Treat (Routine) + + + + + + + | Status | Reason | Specialty | Diagnoses / | Referred By | Referred To | | | | | Procedures | Contact | Contact | + + + + + + + | Authorized | Specialty | Hematology | Diagnoses | Schlitt, | Selina, | | | Services | and Oncology | | Lawrence To, | Mahin Boyle MD | | | Required | / Oncology | Hypercoagula | [address] | | | | | ble [place] | [address] | | | | | ([facility]) | [address] [place] | [place], | | | | | | [place], [place] | [place] [address] | | | | | | [address] | Phone: | | | | | | Phone: | [phone] | | | | | | [phone] | Fax: | | | | | | Fax: | [phone] | | | | | | [phone] | | + + + + + + + Reason for Visit + + + | Reason | Comments | + + + | Back Pain | | + + + Encounter Details +--------+---------+ + + + | Date | Type | Department | Care Team | Description | +--------+---------+ + + + | 10/11/ | Office | [facility] [place] | Matthewdeirdre Lawrence | Back pain, | | 2018 | Visit | NEUROSURGERY [address] | MD Zuleika [address] | unspecified back | | | | [address] | [address] [place] | location, | | | | [place], [place] | [place] [address] | unspecified back | | | | [address] | [phone] | pain laterality, | | | | [phone] | | unspecified | | | | | | chronicity (Primary | | | | | | Dx); Spinal stenosis | | | | | | of lumbar region, | | | | | | unspecified whether | | | | | | neurogenic | | | | | | claudication | | | | | | present; Lumbar | | | | | | foraminal stenosis; | | | | | | Osteoarthritis of | | | | | | lumbar spine, | | | | | | unspecified spinal | | | | | | osteoarthritis | | | | | | complication status; | | | | | | Facet arthropathy, | | | | | | lumbar; Obesity, | | | | | | unspecified | | | | | | classification, | | | | | | unspecified obesity | | | | | | type, unspecified | | | | | | whether serious | | | | | | comorbidity present; | | | | | | Atrial | | | | | | fibrillation, | | | | | | unspecified type | | | | | | (HCC); | | | | | | Hypercoagulable | | | | | | state (HCC) | +--------+---------+ + + + Social [...] + + + | Blood Pressure | 115/64 | 10/11/2018 12:36 PM | | | | | PDT | | + + + + + | Pulse | 72 | 10/11/2018 12:36 PM | | | | | PDT [...] + | Weight | 123.4 kg (272 lb) | 10/11/2018 12:36 PM | | | | | PDT | | + + + + + | Height | 175.3 cm (5' 9") | 10/11/2018 12:36 PM | | | | | PDT | | + + + + + | Body Mass Index | 40.17 | 10/11/2018 12:36 PM | | | | | PDT | | + + + + + documented in this encounter Patient Instructions Patient Instructions Eli Sy, Oyster Sorter - 10/11/2018 12:15 PM PDT Let pain be your guide. If you are doing an activity that starts causing you pain back off and ease back into it slowly. We don't want you taking any risks that do not need to be ta cristóbal. We like to use surgery as a last resort. We are permanently altering your spine for the re st of your life. You will need to be off your Eliquis 3-5 days prior to surgery however we will further disc uss this when we come up with a surgical date. Surgery will likely not take away all of your pain. We also highly recommend that you work on weight loss. After surgery there is a possibilit y that the bone could grow back. We will also put a referral in for you to see Dr. Marks to discuss your atrial fibrillatio n. If you do choose back surgery it would look something like this: -1-3 days in the hospital, spend the first month lifting no more than 5lbs, no bending, lif ting above your head, or twisting. -We will want you to be up and walking very frequently. For the first 10-14 days we want y ou to be up every 45 minutes for 2-3 minutes in your house. After 10-14 days when you are f eeling comfortable you can walk outside with a walking partner. -No intercourse for the first month. -No driving for the first few weeks to 1 month as long as you have your strength back and a re not taking pain medication then you could drive. -You would need help with things like tying your shoes, getting socks on and what not to pr event you from bending over for that first month at least. -Recovery time would be 6-12 months depending on bone fusion and healing. You will have lona e waxing and waning of symptoms. The pain will vary in intensity and vary from day to day. As time moves on the frequency and intensity of the pain will slowly go away. documented in this encounter Progress Notes Lawrence Cabrera MD - 10/11/2018 12:15 PM PDT Lawrence Cabrera MD [address] [facility], [address] [place] [address] PHONE: FAX: NEUROSURGERY HISTORY AND PHYSICAL EXAMINATION CHIEF COMPLAINT: Chief Complaint Patient presents with Back Pain HISTORY OF PRESENT ILLNESS: Antonio Azevedo Jr. is a 73 y.o. male with the complaint of back pain and left leg symptoms that began several years ago. The back symptoms have been gradually worsening. He rates the back pain as moderate to sev ere. The back symptoms are daily and continuous. He describes the back pain as sharp, numb ing, tingling, dull and aching. He describes leg symptoms that occur on primarily on the left. The leg symptoms account fo r 25% of his symptoms. The leg symptoms are constant. He also describes the loss of the ab ility to walk distances without sitting, numbness of the legs and weakness of the leg. He does not report any change in bowel or bladder function recently. His symptoms improve with rest and changing position. His symptoms worsen with standing, sitting, walking, running, kneeling, bending, twisting, stairs and light exertion. The patient had a fluoroscopically guided radiofrequency ablation of the bilateral L3, L4 m edial branches and bilateral L5 dorsal rami as part of conservative management for chronic p ain and lumbar spondylosis by Dr. Handley on 05/20/2018. He reports this procedure gave him relief in legs but not his back pain. The patient has a history of blood clots and AFIB.He's had 3 different episodes of bloo d clots in his legs. He takes his Eliquis for this as well as his atrial fibrillation real ly has a history of coronary artery disease with previous stenting. He states he has never had a hematology workup. 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) 10/27/2016 Venous insufficiency Wears partial dentures PAST SURGICAL HISTORY: Past Surgical History: Procedure Laterality Date APPENDECTOMY CARPAL TUNNEL RELEASE Right COLONOSCOPY 2008 [place] CORONARY ANGIOPLASTY 10/27/2016 [place] FEMUR SURGERY Left KNEE ARTHROSCOPY Left 2004 NOSE SURGERY OTHER SURGICAL HISTORY N/A 10/11/2017 Procedure: IR PAIN MANAGEMENT / SKELETAL; Surgeon: Tahir Handley MD; Location: [facility] INTERVENTIONAL RADIOLOGY MD INJ DX/THER AGNT PARAVERT FACET JOINT, CERV/THORAC, ADD LEVEL N/A 05/20/2018 Procedure: RFA; Surgeon: Tahir Handley MD; Location: [facility] INTERVENTIONAL RADIOLOGY SHOULDER SURGERY Left 1979 Weeks; [facility] [place] 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 Gonzalez SKIN GRAFT Right Ankle TONSILLECTOMY AND ADENOIDECTOMY TOOTH EXTRACTION 03/20/2018 TOTAL KNEE ARTHROPLASTY Right 2013 Rojas; [facility] [place] TOTAL KNEE ARTHROPLASTY Left 2015 Rojas; [facility] [place] VASECTOMY CURRENT MEDICATIONS: Current Outpatient Medications Medication Sig Dispense Refill amitriptyline (ELAVIL) 25 mg tablet Take 50 mg by mouth Daily. 0 aspirin 81 MG tablet Take 81 mg by mouth Daily. cetirizine (ZYRTEC) 10 mg tablet Take 10 mg by mouth Daily. Desoximetasone 0.05 % GEL Apply 1 Application topically 2 times daily. ELIQUIS 5 MG tablet Take 1 tablet by mouth 2 times daily. 4 ezetimibe (ZETIA) 10 mg tablet Take 10 mg by mouth Daily. levothyroxine (SYNTHROID) 50 mcg tablet Take 50 mcg by mouth Daily. lisinopril (PRINIVIL, ZESTRIL) 10 mg tablet Take 10 mg by mouth Daily. metoprolol succinate (TOPROL-XL) 50 mg 24 hr [...] Other (See Comments) Doesn't recall Hydrocodone-Acetaminophen Rash SOCIAL HISTORY: He reports that he quit smoking about 28 years ago. His smoking use included cigarettes. Arlette martin has a 22.00 pack-year smoking history. He has never used smokeless tobacco. He reports lavon t he drinks alcohol. He reports that he has current or past drug history. Drug: Marijuana. FAMILY HISTORY: Family History Problem Relation Age of Onset Heart disease Mother Diabetes Mother Cancer Mother Arthritis Mother Heart disease Father Bleeding problems Father Blood Clots Lung cancer Brother Lung cancer Sister No known problems Maternal Grandmother No known problems Maternal Grandfather No known problems Paternal Grandmother Cancer Paternal Grandfather High blood pressure Other Bleeding problems Paternal Uncle Blood Clots REVIEW OF SYSTEMS: GENERALLY: No fever, no night sweats, no anemia, + fatigue, no recent profound weight brian nges. EYES: No eye problems, no impaired sight, + use of corrective lenses, no eye injury, no do uble vision, no transient blindness. EARS, NOSE, AND THROAT: No changes in taste or smell, no hearing difficulty, + ringing in the ears, no ear drainage, no ear injury, no dizziness, no voice changes, no difficulty swal lowing, + significant snoring, + sleep apnea/CPAP, no sinus problems, no major dental work. NEUROLOGICALLY: Please see the review of systems discussed above in the history of present illness. In addition, He has numbness/pain of arms, awake with numbness/pain, weakness, mu scle aching. PSYCHIATRIC: + depression, no difficulty sleeping, no anxiety, no bipolar disorder. CARDIOVASCULAR: No heart attacks, no heart murmur, no heart fluttering, no chest pain, no ankle swelling. LUNG DISEASE: No shortness of breath, no cough, no tuberculosis, no bloody cough, no asthm a, no emphysema/COPD. GASTROINTESTINAL: No bowel disease, no nausea or vomiting, no rectal bleeding, no constipa tion, no fecal stool incontinence, no liver/gallbladder disease, no abdominal pain, no ulcer s. KIDNEY DISEASE: No urinary frequency, no painful or difficult urination, no urinary incont inence, no bladder problems, no impotence. ENDOCRINE: + diabetes, no thyroid disease, no osteopenia or osteoporosis, no breast draina ge. SKIN: No breast lumps, no skin disease or skin changes, no rashes/itches. HEMATOLOGIC/LYMPHATIC: No enlarged lymph nodes, no easy or unusual bleeding, no personal h istory of cancer. RHEUMATOLOGIC: + joint pain/arthritis, no rheumatoid arthritis. PHYSICAL EXAMINATION: Blood pressure 115/64, pulse 72, height 1.753 m (5' 9"), weight 123.4 kg (272 lb). Body mas s index is 40.17 kg/m. GENERAL: Antonio Azevedo Jr. is in no acute distress with unlabored respirations. He does not appear uncomfortable throughout the exam today. HEENT: Head: Normocephalic/atraumatic with no areas of recent trauma. Eyes: Normal sclerae without icterus. Ears: No drainage or tenderness. Nasopharynx: Clear without drainage. Oropharynx: Clear without erythema. NECK (ANTERIOR): Supple and without palpable masses. CHEST: Clear to ausculation without crackles or wheeze. HEART: Regular rate and rhythm without murmurs. ABDOMEN: Soft, non-tender, non-distended, and without palpable masses. He is obese. EXTREMITIES: No cyanosis, clubbing, or edema. Distal pulses are palpable. NEUROLOGICAL EXAM: MENTAL STATUS: He is awake, alert, and oriented. He follows simple and complex commands. His speech is fluent, he comprehends speech well, and he repeats well. He has no apparent deficits with short or lepidopterist memory. CRANIAL NERVES: II: Acuity is intact. [...] Indicates pain limited MUSCLE/ MOVEMENT: RIGHT LEFT Hip Flexion 5 5 Hip Extension 5 5 Knee Flexion 5 5 Knee Extension 5 5 Dorsiflexion 5 5 Extensor Hallicus Longus 5 5 Plantarflexion 5 5 SENSORY EXAM: Sensory exam shows no diminished sensation to light touch or pain throughout the upper and lower extremities. REFLEXES: (2 OR 2+ IS NORMAL) REFLEX: RIGHT LEFT BICEPS 0 0 BRACHIORADIALIS 0 0 TRICEPS +1 +1 PATELLAR 0 0 ACHILLES 0 0 RIZVI'S ABSENT ABSENT BABINSKI NEGATIVE NEGATIVE GAIT: Gait is steady. PERIPHERAL NERVE/MISC: Straight leg raise is negative bilaterally. Quinn's test of the hips is negative bilaterally. TEST AND RADIOGRAPHIC REVIEW: His imaging was reviewed in detail today during the visit. The MRI from 10/07/2018 shows ca nal stenosis at L4-5 due to facet hypertrophy and disc protrusion, and left lateral recess a nd neural foraminal narrowing with a milder degree of canal stenosis due to the combination of a disc protrusion plus a large osteophyte. Lumbar x-rays from 02/02/2017 shows no major instability. ASSESSMENT:lumbar spinal stenosis Outpatient Morphine Equivalent Daily Dose (MEDD) None PEG Pain screening tool: Total score: 7.67 (10/11/18 1239) NEUROSURGICAL DIAGNOSES:same as above Encounter Diagnoses Name Primary? Back pain, unspecified back location, unspecified back pain laterality, unspecified chr onicity Yes Spinal stenosis of lumbar region, unspecified whether neurogenic claudication present Lumbar foraminal stenosis Osteoarthritis of lumbar spine, unspecified spinal osteoarthritis complication status Facet arthropathy, lumbar Obesity, unspecified classification, unspecified obesity type, unspecified whether seri ous comorbidity present Atrial fibrillation, unspecified type (HCC) Hypercoagulable state (HCC) GENERAL DIAGNOSES: Past Medical History: Diagnosis Date Atherosclerosis Atrial fibrillation (HCC) Diabetes mellitus type 2, controlled (HCC) Enlarged prostate with lower urinary tract symptoms (LUTS) Essential hypertension Hyperlipidemia Hypothyroidism Impaired fasting glucose Lumbar disc disease with radiculopathy Lumbar spondylosis 07/30/2017 Obesity Osteoarthrosis Osteoarthrosis involving lower leg Prostate hyperplasia with urinary 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 presented today, and it was a pleasure seeing this patient and ass essing his neurologic problems. He has Lumbar spinal stenosis which is life limiting at this time. He has stable symptom s but they continue to cause a great deal of impairment and harm to his quality of life. I had a lengthy discussion with him about his options for care including surgical and non-s urgical options. In discussing the surgical options, we discussed in detail his options for a lumbar decompr ession at L4-S1 on the left. The indications for decompression are severe symptoms refracto ry to conservative care. He understands that in most instances the recovery from surgery can be lengthy and sometime s difficult. We've also discussed the risks of surgery including , paralysis, bleeding , infection, and a slightly increased risk of stroke while he is off his anticoagulation due to atrial fibrillation. I've emphasized that I don't think the average patient becomes com pletely pain free after surgery. Patient and his indicate they understand all of this and want to go home and discuss it further. We look forward to hearing from them. I spent more than 50% of the 45 minute long the patient consultation [id number] with this nice cou ple. I, Lawrence Cabrera MD, personally performed the services described in this documentatio n, as scribed by GLADYS Conklin, in my presence, and it is both accurate and complete . Lawrence Cabrera MD ELECTRONICALLY SIGNED BY: Lawrence Cabrera MD, 10/11/2018 13:23 documented in this encounter Plan of Treatment + + +--------+ + + | Name | Type | Priori | Associated Diagnoses | Order Schedule | | | | ty | | | + + +--------+ + + | Hematology / | Outpatient | Routin | Hypercoagulable | Ordered: 10/11/2018 | | Oncology, External - | Referral | e | state ([facility]) | | | AMB Referral | | | | | + + +--------+ + + documented as of this encounter Visit Diagnoses + + | Diagnosis | + + | Back pain, unspecified back location, unspecified back pain laterality, unspecified | | chronicity - Primary | + + | Spinal stenosis of lumbar region, unspecified whether neurogenic claudication present | + + | Lumbar foraminal stenosis Spinal stenosis, lumbar region, without neurogenic | | claudication | + + | Osteoarthritis of lumbar spine, unspecified spinal osteoarthritis complication status | + + | Facet arthropathy, lumbar Lumbosacral spondylosis without myelopathy | + + | Obesity, unspecified classification, unspecified obesity type, unspecified whether | | serious comorbidity present | + + | Atrial fibrillation, unspecified type (HCC) | + + | Hypercoagulable state (HCC) Primary hypercoagulable state | + + documented in this encounter
--- OUTSIDE RECORDS SUMMARY | ~2019-02-23 | XMS | Encounter Summary ---
Demographics + + + | Address | [address] | | | [place] [address] | + + + | Home Phone | | + + + | Preferred Language | Unknown | + + + | Marital Status | | + + + | Gnosticist Affiliation | Unknown | + + + [...] Team Providers + +------+ + | Care Riveting Machine Operator Automatic Name | Role | Phone | + +------+ + | Kait Velazquez MD | PCP | | + +------+ + Reason for Visit + + + | Reason | Comments | + + + | Coordination Of Care | | + + + Encounter Details +--------+ + + + + | Date | Type | Department | Care Team | Description | +--------+ + + + + | 09/25/ | Telephone | [facility] [place] | Sanjay Finnegan MD | Coordination Of Care | | 2019 | | NEUROSURGERY [address] | [address] | | | | | [address] | [place] [address] | | | | | [place] | [phone] | | | | | [address] | | | | | | [phone] | | | +--------+ + + + [...]
--- OUTSIDE RECORDS SUMMARY | ~2019-02-23 | XMS | Encounter Summary ---
Demographics + + + | Address | [address] | | | [place] [address] | + + + | Home Phone | | + + + | Preferred Language | Unknown | + + + | Marital Status | | + + + | Shinto Affiliation | Unknown | + + + | Race | Unknown | + + + | Ethnic Group | Unknown | + + + Author + + + | Author | [facility] | | | and [place] | + + + | Organization | [facility] | | | [...] Team Providers + +------+ + | Care Counselling Psychologist Name | Role | Phone | + +------+ + | Paul Boss MD | PCP | | + +------+ + Reason for Visit +--------+ + | Reason | Comments | +--------+ + | Other | post procedure results | +--------+ + Encounter Details +--------+ + + + + | Date | Type | Department | Care Team | Description | +--------+ + + + + | 09/03/ | Telephone | [facility] | Tahir Handley | Other (post | | 2017 | | PHYSIATRY [address] | procedure results) | | | | [address], | [place], [place] | | | | | [place] [address] | [address] | | | | | [phone] | | | +--------+ + + + [...] on filedocumented as of this encounter Results [place] Facet Injection Lumbar Sacral (09/11/2017 2:47 PM PDT) + + | Specimen | + + | | + + + + -+ | Narrative | Performed At | + + -+ | | [facility] | | 09/11/2017Bilateral Lumbar Medial Branch Block Diagnosis: Lumbar | | | spondylosis ICD-10 M47.817 Antonio Azevedo Jr. presents to the | | | fluoroscopy suite for fluoroscopically-guided bilateral L3, L4 medial | | | branch blocks and bilateral L5 dorsal ramus blocks as part of | | | conservative management for chronic pain with lumbar spondylosis.Based | | | on the patient's history, physical examination and review of the | | | available imaging the patient has been diagnosed with pain coming | | | primarily from the lumbar facet joints. The patient's pain has been | | | moderate to severe, rated as a 5 or higher usually on a 0-10 scale. | | | The pain is impacting activities of daily living including any | | | activities that include bending, lifting or twisting. The patient | | | has been dealing with this pain for more than 3 months and has failed | | | conservative treatment with NSAIDs, PT and a home exercise program | | | therefore diagnostic medial branch blocks were ordered today targeting | | | the bilateral L4-L5 and L5-S1 facet joints. After informed | | | consent was obtained, the patient lay in a prone position on the | | | fluoroscopy table. The areas were identified under fluoroscopic | | | guidance. The areas were prepped and draped in a sterile fashion. A | | | 25-gauge 1.5-inch needle was inserted into each region and | | | approximately 2 mL of buffered 1% lidocaine was infused. Then a | | | 22-gauge spinal needle was advanced to the correct position at each | | | site under fluoroscopic guidance. Confirmation into the proper | | | location was obtained with infusion of a small amount of Isovue | | | contrast at each site. Then 0.5 mL of 0.5% ropivacaine was infused at | | | each location. Pre- and postprocedure blood pressures were stable. The | | | patient was given verbal as well as written followup instructions. | | | The patient was reexamined after the procedure. He reported moderate | | | improvement of his symptoms after the procedure. His symptoms were | | | improved with bending and twisting maneuvers. The patient was | | | instructed to keep a detailed pain diary of the response to treatment | | | and will return the pain diary to our office within the next few days | | | for further evaluation and additional treatment planning. Prior to the | | | start of the procedure, the following were [...] | |Anesthesia: Local 1% Lidocaine | | + + -+ + +---------+ + + | Performing | Address | City/State[facility] | Phone Number | | Organization | | | | + +---------+ + + | [facility] | | | | + +---------+ + + documented in this encounter Visit Diagnoses + + | Diagnosis | + + | Spondylosis without myelopathy or radiculopathy, lumbar region - Primary | + + documented in this encounter"
--- OUTSIDE RECORDS SUMMARY | ~2019-02-23 | XMS | Encounter Summary ---
Demographics + + + | Address | [address] | | | [place] [address] | + + + | Home Phone | | + + + | Preferred Language | Unknown | + + + | Marital Status | | + + + | Jainism Affiliation | Unknown | + + + | Race | Unknown | + + + | Ethnic Group | Unknown | + + + Author + + + | Author | [facility] | | | and [place] | + + + | Organization | [facility] | | [...] Team Providers + +------+ + | Care Television Cable Installer Name | Role | Phone | + +------+ + | Kait Velazquez MD | PCP | | + +------+ + Reason for Visit + + + | Reason | Comments | + + + | Medication Problem | | + + + Encounter Details +--------+--------+ + + + | Date | Type | Department | Care Team | Description | +--------+--------+ + + + | 12/20/ | Refill | [facility] [place] | Carey, | Medication Problem | | 2017 | | [address]YSIATRY [address] | [address] | | | | | [place], | [address] [place], | | | | | [place] [address] | [place] [address] | | | | | [phone] | [phone] | | | | | | | [...]
--- OUTSIDE RECORDS SUMMARY | ~2019-02-23 | XMS | Encounter Summary ---
Demographics + + + | Address | [address] | | | [place] [address] | + + + | Home Phone | | + + + | Preferred Language | Unknown | + + + | Marital Status | | + + + | Church Affiliation | Unknown | + + + | Race | Unknown | + + + | Ethnic Group | Unknown | + + + Author + + + | Author | [facility] | | | and [place] | + + + | Organization | [facility] | | [...] Team Providers + +------+ + | Care Broadcast Meteorologist Name | Role | Phone | + +------+ + | Paul Boss MD | PCP | | + +------+ + Encounter Details +--------+---------+ + + + | Date | Type | Department | Care Team | Description | +--------+---------+ + + + | 10/11/ | Surgery | [facility] | Tahir Handley | IR PAIN MANAGEMENT / | | 2018 | | [facility] OP | T, [address] | SKELETAL | | | | [address] | [address] [place] | | | | | [place] | [address] | | | | | [address] | | | | | | [phone] | | | +--------+---------+ + + + [...] + + + | Blood Pressure | 139/81 | 10/11/2017 3:15 PM | | | | | PDT | | + + + + + | Pulse | 56 | 10/11/2017 3:15 PM | | | | | PDT | | + + + + + | Temperature | 37.1 C (98.7 F) | 10/11/2017 1:21 PM | | | | | PDT | | + + + + + | Respiratory Rate | 26 | 10/11/2017 2:44 PM | | | | | PDT | | + + + + + | Oxygen Saturation | 95% | 10/11/2017 3:15 PM | | | | | PDT | | + + + + + | Inhaled Oxygen | - | - | | | Concentration | | | | + + + + + | Weight | 120.6 kg (265 lb 14 | 10/11/2017 12:16 PM | | | | oz) | PDT | | + + + + + | Height | 175.3 cm (5' 9") | 10/11/2017 12:16 PM | | | | | PDT | | + + + + + | Body Mass Index | 39.26 | 10/11/2017 12:16 PM | | | | | PDT | | + + + + + documented in this encounter Discharge Instructions Instructions Sonido White RN - 10/11/2017Formatting of this note might be different fr om the original. Understanding Radiofrequency Denervation Radiofrequency denervation is a treatment choice for some kinds of lower back and neck pain . It uses an electrical current created by radio waves. The radio waves make heat that destr oys nerves along the spine that are causing pain. It s also known as radiofrequency lesion ing, ablation, neurotomy, or rhizomotomy. How to say it [id number]-adjkorina No Why radiofrequency denervation is done This [...] up to 4 months Date Last Reviewed: 09/15/201519999109-8467 [employer]. [address] [place] [address]. All righ ts reserved. This information is [...] by mouth | | 0 | | 12/11/201 | | (GLUCOPHAGE) 500 mg | Daily. [...] | + +--------+ + + + | IR PAIN MANAGEMENT / | | 10/11/2017 | Bilateral L3 and | | | SKELETAL | | 1:19 PM | L4 medial branch and | | | | | PDT | L5 doral ramus RFA | | + +--------+ + + + +---+--------+ | | | | | Specia | | | l | | | Needs | | | UNDER | | | CONS | | | SED | | | Bilate | | | ral L3 | | | and | | | L4 | | | medial | | | | | | branch | | | and | | | L5 | | | doral | | | ramus | | | RFA | +---+--------+ + +--------+ +---+ + | POC GLUCOSE | Routin | 10/11/2017 | | Results for this | | | e | 1:07 PM | | procedure are in the | | | | PDT | | results section. | + +--------+ +---+ + documented in this encounter Results POC Glucose (10/11/2017 1:07 PM PDT) + +-------+ + + + | Component | Value | Ref Range | Performed | Pathologist | | | | | At | Signature | + +-------+ + + + | Glucose, | 101 | 70 - 109 mg/dL | [facility] | | [facility] | | | [facility] | | [facility] | | | | | | [facility] - | | | | | | LABORATORY | | + +-------+ + + + + + | Specimen | + + | Blood | + + + + + + + | Performing | Address | City/State/Zipcode | Phone Number | | Organization | | | | + + + + + | [facility] | [address] | [place], [place] | [phone] | | [facility] | | [address] | | | - LABORATORY | | | | + + + + + documented in this encounter Visit Diagnoses Not on filedocumented in this encounter Administered Medications + +--------+ +--------+------+------+ | Medication Order | MAR | Action | Dose | Rate | Site | | | Action | Date | | | | + +--------+ +--------+------+------+ | fentaNYL (PF) injection PRN, | Given | 10/12/19 | 50 mcg | | | | Starting Tiara 10/11/17 at 1331 | | 18 2:12 | | | | | | | PM PDT | | | | + +--------+ +--------+------+------+ +-------+ +--------+---+---+ | Given | 10/12/19 | 50 mcg | | | | | 18 1:58 | | | | | | PM PDT | | | | +-------+ +--------+---+---+ | Given | 10/12/19 | 50 mcg | | | | | 18 1:42 | | | | | | PM PDT | | | | +-------+ +--------+---+---+ +---+---+ | | | +---+---+ + +-------+ +--------+---+---+ | midazolam (VERSED) 1 mg/mL | Given | 10/12/19 | 0.5 mg | | | | injection PRN, Starting Tiara | | 18 1:58 | | | | | 10/11/17 at 1331 | | PM PDT | | | | + +-------+ +--------+---+---+ +-------+ +------+---+---+ | Given | 10/12/19 | 1 mg | | | | | 18 1:42 | | | | | | PM PDT | | | | +-------+ +------+---+---+ | Given | 10/12/19 | 1 mg | | | | | 18 1:31 | | | | | | PM PDT | | | | +-------+ +------+---+---+ +---+---+ | | | +---+---+ documented in this encounter
--- OUTSIDE RECORDS SUMMARY | ~2019-02-23 | XMS | Encounter Summary ---
Demographics + + + | Address | [address] | | | [place] [address] | + + + | Home Phone | | + + + | Preferred Language | Unknown | + + + | Marital Status | | + + + | Cheondoism Affiliation | Unknown | + + + | Race | Unknown | + + + | Ethnic Group | Unknown | + + + Author + + + | Author | [facility] | | | and [place] | + + + | Organization | [facility] | | | [...] Team Providers + +------+ + | Care Trade Clerk Name | Role | Phone | + +------+ + | Kait Velazquez MD | PCP | | + +------+ + Reason for Visit + + + | Reason | Comments | + + + | Follow-up | Post Injections Bilateral L5-S1 TFESI | + + + Encounter Details +--------+---------+ + + + | Date | Type | Department | Care Team | Description | +--------+---------+ + + + | 04/25/ | Office | [facility] | Carey, | Lumbar facet | | 2019 | Visit | PHYSIATRY [address] | [address] | arthropathy (Primary | | | | [place], | [address] [place], | Dx); Lumbar | | | | [place] [address] | [place] [address] | spondylosis; DDD | | | | [phone] | [phone] | (degenerative disc | | | | | | disease), lumbar | +--------+---------+ + + + Social [...] + + + | Blood Pressure | 113/67 | 04/25/2018 11:14 AM | | | | | PST | | + + + + + | Pulse | 78 | 04/25/2018 11:14 AM | | | | | PST | [...] + + + + | Weight | 119.3 kg (263 lb) | 04/25/2018 11:14 AM | | | | | PST | | + + + + + | Height | 175.3 cm (5' 9") | 04/25/2018 11:14 AM | | | | | PST | | + + + + + | Body Mass Index | 38.84 | 04/25/2018 11:14 AM | | | | | PST | | + + + + + documented in this encounter Patient Instructions Patient Instructions Елена Patino PA-C - 04/25/2018 11:20 AM PSTRFA therapy of the low back pain - we will call you once approved and then schedule Radiofrequency Ablation (RFA) Burning of the nerves: This procedure is typically done when the steroid injections give excellent initial relief but does not last long. It is the same procedure as the steroid injections however it take s approximately 2 hours to complete. A needle is placed inside the facet joints and then co nnected to a battery pack which heats up the needle to burn the nerves inside the joint. Yo u must not eat after midnight the night before as you are put into procedural sedation where you can hear and talk but do not feel pain. You must have a wood pile driver operator to get home from the hospital. You will feel more bruising pain to the location of the needles for taurus maxwell 4-5 days after this procedure, but once that clears up, you should be pain free for 8 m onths to 2 years, depends on when the nerve grows back. [email or web address] Follow-up at the hospital thirty minutes before your scheduled procedure to allow for time to check in. You may eat and drink as usual on the day of the procedure. If you are scheduled for an epidural injection do not take any blood thinning medications f or at least 5-7 days prior to your procedure unless you have been instructed by another phys ician not to discontinue blood thinning medications. If you are having a procedure other than an epidural injection (i.e. facet injection, media l branch block, SI joint injection or other joint injection) it is not absolutely necessary to discontinue blood thinning medications but doing so will decrease the risk of bruising or bleeding. If you have had a prior stroke, DVT or PE or if you are taking blood thinning medication be cause you have atrial fibrillation, a prosthetic cardiac valve replacement or heart stenting do not stop taking your blood thinning medications unless you have permission from your car diologist or primary care provider. All other medications should be taken as usual on the day of the procedure. Common blood thinning medications include: Aspirin (a baby aspirin is o.k.) Ibuprofen (Advil or Motrin) Naproxen (Aleve) Nabumetone (Relafen) Clopidogrel (Plavix) Dipyridamole/ASA (Aggrenox) Warfarin (Coumadin) Dabigatran (Pradaxa) Rivaroxaban (Xarelto) There are many others. If you have questions about your medications and whether or not you should stop any medications please contact our office. If you are having an epidural injection or if you take any medication for relaxation/sedati on on the day of the procedure you must provide a wood pile driver operator to take you home. For all procedur es it is recommended that someone else drive you home. documented in this encounter Progress Notes Елена Patino PA-C - 04/25/2018 11:20 AM PSTFormatting of this note might be differe nt from the original. Елена Patino PA-C [address] [facility], [address] [place] [address] FAX: PHYSICAL MEDICINE AND REHABILITATION H&P CHIEF COMPLAINT: Chief Complaint Patient presents with Follow-up Post Injections Bilateral L5-S1 TFESI HISTORY OF PRESENT ILLNESS: The patient is a 73 y.o. male being seen today for follow up c omplaints of back pain that began a chronic issue for months now. He last received bilatera l L5/S1 TFESI with Dr. Handley 12/13/2017. He reported 50% relief for 3 months. He then had a second bilateral L5/S1 TFESI on 04/04/2018 and reports 50% immediate relief followed b y 75% relief after 24 hours, 4 days and then is slowly tapered off so that at 2 weeks he onl y had 25% improvement. He last received RFA therapy of the lumbar facet joints 10/11/2017 an d he feels this pain is starting to return. He reports his pain is worse with standing and walking. His pain is relieved with sitting especially in the recliner. He describes his pain is more of the achy throbbing to the lowe r back buttocks region. He does not report any paresthesias or weakness at this time. He i s no longer able to take Celebrex for pain relief due to kidney injury, he is taking amitrip tyline which is helping him sleep at night. Treatments for these complaints have included physical therapy, use of narcotics, muscle re laxer's and RFA therapy of the L4-L5, L5/S1 facets. Patient's medications, allergies, past medical, surgical, social and family histories were reviewed and updated as appropriate. CURRENT MEDICATIONS: Current Outpatient Prescriptions Medication Sig Dispense Refill amitriptyline (ELAVIL) 25 mg tablet Take 100 mg by mouth Daily. 0 aspirin 81 MG tablet Take 81 mg by mouth Daily. cetirizine (ZYRTEC) 10 mg tablet Take 10 mg by mouth Daily. Desoximetasone 0.05 % GEL Apply 1 Application topically 2 times daily. ELIQUIS 5 MG tablet Take 1 tablet by mouth Daily. 4 levothyroxine (SYNTHROID) 50 mcg tablet Take 50 mcg by mouth Daily. metoprolol succinate (TOPROL-XL) 50 [...] of systems was negative. PHYSICAL EXAMINATION: Vitals: 04/25/18 1114 BP: 113/67 Pulse: 78 PainSc: 5 PainLoc: Back Body mass index is 38.84 kg/m. GENERAL: The patient is well developed [...] has no apparent deficits with short or exterminator termite memory. He has appropriate fund of knowledge [...] amrita on . Lumbar facet loading was positive more to the left than right. Strength testing showe d 5/5 strength throughout the lower extremities. The patient was able to heel and toe walk without difficulty. There was no redness, effusion, warmth or joint line tenderness in the knees or ankles. RADIOGRAPHIC REVIEW: The patient's imaging was reviewed in detail with the patient today during the visit. Lumb ar MRI from 2017 shows lumbar DDD with disc space narrowing at L4/L5, L5/S1, moderate to sev ere facet arthritis/hypertrophy with foraminal stenosis on the left at L4/L5. ASSESSMENT: 1. Lumbar facet arthropathy 2. Lumbar spondylosis 3. DDD (degenerative disc disease), lumbar PLAN: 1. It has been 6 months since having the RFA therapy to the bilateral L4/L5, L5/S1 facet j oints. I do think he is a candidate for this again. The RFA therapy gave him 6 months of o jessie 60% improvement for 6 months. 2. Patient has participated in physical therapy, this was done at [facility]. 3. I have not made any changes in his medications today. 4. He will follow up in office for an H & P that has to be done 30 days prior to the RFA p rocedure. ELECTRONICALLY SIGNED BY: Елена Patino PA-C, 04/25/2018 CC: Aleksander Velazqueztronically signed by Елена Patino PA-C at 04/25/2018 1:08 PM PS Tdocumented in this encounter Plan of Treatment Not on filedocumented as of this encounter Results FL DESTRUCTION BY NEUROLYTIC AGENT LUMBA (05/20/2018 2:49 PM PST) + + | Specimen | + + | | + + + + + | Narrative | Performed At | + + + | | [facility] | | 05/20/2018RADIOFREQUENCY ABLATION CLINICAL HISTORY: ICD-10 Code M47.816 | | | LUMBAR SPONDYLOSIS. Antonio Azevedo Jr. presents to the | [...] without myelopathy | + + | Lumbar spondylosis Lumbosacral spondylosis without myelopathy | + + | DDD (degenerative disc disease), lumbar Degeneration of lumbar or lumbosacral | | intervertebral disc | + + documented in this encounter
--- OUTSIDE RECORDS SUMMARY | ~2019-02-23 | XMS | Encounter Summary ---
Demographics + + + | Address | [address] | | | [place] [address] | + + + | Home Phone | | + + + | Preferred Language | Unknown | + + + | Marital Status | | + + + | Restoration Affiliation | Unknown | + + + [...] Team Providers + +------+ + | Care Finisher Denture Name | Role | Phone | + [...] Description | +--------+--------+ + + + | 02/03/ | Refill | [facility] | Bing Terrazas, | Medication Refill | | 2019 | | CARDIOLOGY [facility] | [address] | | | | | [address] | [place], [place] | | | | | [place], [place] | [address] | | | | | [address] | | | | | | [phone] | | | +--------+--------+ + + + [...] + | Not Currently | | | Rare | + + [...]
--- OUTSIDE RECORDS SUMMARY | ~2019-02-23 | XMS | Encounter Summary ---
Demographics + + + | Address | [address] | | | [place] [address] | + + + | Home Phone | | + + + | Preferred Language | Unknown | + + + | Marital Status | | + + + | Hinduism Affiliation | Unknown | + + + | Race | Unknown | + + + | Ethnic Group | Unknown | + + + Author + + + | Author | [facility] | | | and [place] | + + + | Organization | [facility] | | | [...] Team Providers + +------+ + | Care Graduate Studies Dean Name | Role | Phone | + [...] | Lumbar | [place], | [address] | | | | | radiculopath | Tahir Maldonado MD | [place], | | | | | y | [address] | [place] | | | | | Procedures | [place] | [address] | | | | | [place] INJECT | [place], [place] | Phone: | | | | | ANES/STEROID | [address] | [phone] | | | | | FORAMEN | Phone: | Fax: | | | | | LUMBAR/SACRA | [phone] | [phone] | | | | | [address] IMG | Fax: | | | | | | GUIDE ,1 | [phone] | | | | | | LEVEL [place] | | | | | | | TRIAMCINOLON | | | | | | | E ACET INJ | | | | | | | NOS, 10 MG | | | | | | | Bilateral | | | | | | | L5-S1 TFESI | | | +--------+--------+ + + + + Encounter Details +--------+ + + + + | Date | Type | Department | Care Team | Description | +--------+ + + + + | 12/13/ | Hospital | [facility] | Carey, | Lumbar radicular | | 2018 | Encounter | MED CTR XRAY [address] | [address] | pain; Foraminal | | | | [address] [place] | [address], | stenosis of lumbar | | | | [place] [address] | [place] [address] | region; DDD | | | | [phone] | [phone] | (degenerative disc | | | | | | disease), lumbar | | | | | [facility] | | +--------+ + + + + [...] +---------+ + + | Blood Pressure | 139/65 | 12/13/2017 3:17 PM | | | | | PDT [...] + + + +---------+ + + | buPROPion | TAKE 1 TABLET BY | 90 | 0 | 12/11/19 | | | (WELLBUTRIN XL) 150 | MOUTH EVERY DAY | tablet | | 18 | 8 | | mg 24 hr tablet | | | | | | + + + +---------+ + + | carBAMazepine | CHEW AND SWALLOW 1 | 270 | 0 | 12/11/19 | | | (TEGRETOL) 100 mg | TABLET BY MOUTH 3 | tablet | | 18 | 8 | | chewable tablet | TIMES DAILY WITH | | | | | | | MEALS | | | | | + + + +---------+ + + | celecoxib | TAKE 1 CAPSULE BY | 180 | 2 | 12/11/19 | | | (CELEBREX) 200 mg | MOUTH TWICE DAILY | capsule | | 18 | 8 | | capsule | | | | [...] + + + +---------+ + + | l-methylfolate 15 | Take 1 tablet by | 30 | 2 | 12/06/19 | | | mg tablet | mouth Daily. | tablet | | 18 | 9 | + + + +---------+ + + | lisinopril | Take 5 mg by mouth 2 | | 0 | | | | (PRINIVIL, ZESTRIL) | times daily. | | | | 8 | | 5 mg tablet | | | | | | + + + +---------+ + + | LORazepam (ATIVAN) | Take 1 tablet by | 20 | 0 | 12/05/19 | | | 1 mg tablet | mouth Twice daily | tablet | | 18 | 8 | | | as needed for | | | | | | | Anxiety. | | | | | + + + +---------+ + + | metFORMIN | Take 500 mg by mouth | | 0 | | | | (GLUCOPHAGE) 500 mg | Daily. | | | | 8 | | tablet | | | | | | + + + +---------+ + + | methylPREDNISolone | Follow package | 21 | 0 | 11/14/19 | | | (MEDROL DOSEPAK) 4 | directions. | tablet | | 18 | 9 | | mg tablet | | | | | | + + + +---------+ + + | metroNIDAZOLE | Apply 45 g topically | | 3 | 09/28/19 | | | (METROCREAM) 0.75 % | as needed. | | | 18 | 9 | | cream | | | | | | + + + +---------+ + + | | Take 1 tablet by | 60 | 0 | 11/14/19 | | | oxyCODONE-acetaminop | mouth 2 times daily. | tablet | | 18 | 8 | | hen (PERCOCET) 5-325 | | | | | | | mg per tablet | | | | | | [...] | FL EPIDURAL STEROID | Routin | 12/13/2017 | Lumbar radicular | Results for this | | INJECTION LUMBAR | e | 3:01 PM | pain Foraminal | procedure are in the | | TRANSFORAMINAL | | PDT | stenosis of lumbar | results section. | | | | | region DDD | | | | | | (degenerative disc | | | | | | disease), lumbar | | + +--------+ + + + documented in this encounter Results FL KASSIDY Lumbar Transforaminal (12/13/2017 3:01 PM PDT) + + | Specimen | + + | | + + + + -+ | Narrative | Performed At | + + -+ | 12/13/2017 | [facility] | | Bilateral Transforaminal [...] | the epidural space under fluoroscopic guidance. Confirmation into the | | | epidural space was obtained with infusion of approximately 1 mL of | | | Omnipaque contrast which showed epidural flow as well as nerve sheath | | | flow. Then, a combination of 2 mL of 1% lidocaine and 1.5 mL of 10 | | | mg/mL dexamethasone was infused, divided between the [...] | Diagnosis | + + | Lumbar radicular pain Thoracic or lumbosacral neuritis or radiculitis, unspecified | + + | Foraminal stenosis of [...] dexamethasone (PF) 10 mg/mL | Given | 08/30/20 | 15 mg | | | | injection 15 mg 15 mg, Other, | | 18 3:01 | | | | | ONCE, [facility] 12/13/17 at 1530, For 1 | | PM PDT | | | | | dose | | | | | | + +--------+ +-------+------+------+ +---+---+ | | | +---+---+ + +-------+ +-------+---+---+ | lidocaine (PF) 1% injection 2 | Given | 12/14/19 | 2 mLs | | | | mL 2 mL, Other, ONCE, [facility] | | 18 3:01 | | | | | 12/13/17 at 1530, For 1 dose | | PM PDT | | | | + +-------+ +-------+---+---+ +---+---+ | | | +---+---+ + +-------+ +-------+---+ + | lidocaine buffered 1.3% | Given | 12/14/19 | 6 mLs | | Other | | injection 6 mL 6 mL, | | 18 3:01 | | | (Comment | | Intradermal, ONCE, [facility] 12/13/17 at | | PM PDT | | | ) | | 1530, For 1 dose | | | | | | + +-------+ +-------+---+ + +---+---+ | | | +---+---+ documented in this encounter"
--- OUTSIDE RECORDS SUMMARY | ~2019-02-23 | XMS | Encounter Summary ---
Demographics + + + | Address | [address] | | | [place] [address] | + + + | Home Phone | | + + + | Preferred Language | Unknown | + + + | Marital Status | | + + + | Mu-Ism Affiliation | Unknown | + + + | Race | Unknown | + + + | Ethnic Group | Unknown | + + + Author + + + | Author | [facility] | | | and [place] | + + + | Organization | [facility] | | | [...] Team Providers + +------+ + | Care Fixture Repairer Fabricator Name | Role | Phone | + [...] | STREET | | | | | ([facility]) | [address] [place] | [place], | | | | | | [place], [place] | [place] [address] | | | | | | [address] | Phone: | | | | | | Phone: | [phone] | | | | | | [phone] | Fax: | | | | | | Fax: | [phone] | | | | | | [phone] | | + + + + + + + Reason for Visit + + + | Reason | Comments | + + + | Back Pain | | + + + Encounter Details +--------+---------+ + + + | Date | Type | Department | Care Team | Description | +--------+---------+ + + + | 10/11/ | Office | [facility] [place] | Matthewdeirdre Lawrence | Back pain, | | 2018 | Visit | NEUROSURGERY [address] | MD Zuleika [address] | unspecified back | | | | [address] | [address] [place] | location, | | | | [place], [place] | [place] [address] | unspecified back | | | | [address] | [phone] | pain laterality, | | | | [phone] | | unspecified | | | | [...] encounter Patient Instructions Patient Instructions Eli Sy, Chief Of Party - 10/11/2018 12:15 PM PDT Let pain [...] 12:15 PM PDT Lawrence Cabrera MD [address] [facility], [address] [place] [address] PHONE: FAX: NEUROSURGERY HISTORY AND PHYSICAL EXAMINATION [...] Right COLONOSCOPY 2008 Jeevan CORONARY ANGIOPLASTY 10/27/2016 Eddy FEMUR SURGERY Left KNEE ARTHROSCOPY Left 2004 NOSE SURGERY OTHER SURGICAL HISTORY N/A 10/11/2017 Procedure: IR PAIN MANAGEMENT / SKELETAL; Surgeon: Tahir Handley MD; Location: [facility] [place] INJ DX/THER AGNT PARAVERT FACET JOINT, CERV/THORAC, ADD LEVEL N/A 05/20/2018 Procedure: RFA; Surgeon: Tahir Handley MD; Location: [facility] SHOULDER SURGERY Left 1979 Weeks; [...] has no apparent 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 CRANIAL NERVES: II: Acuity is intact. [...] the 45 minute long the patient consultation [id number] with this nice cou ple. I, Lawrence [...] - | Referral | e | state ([facility]) | | | AMB Referral | [...]
--- OUTSIDE RECORDS SUMMARY | ~2019-02-23 | XMS | Encounter Summary ---
Demographics + + + | Address | [address] | | | [place] [address] | + + + | Home Phone | | + + + | Preferred Language | Unknown | + + + | Marital Status | | + + + | Advent Affiliation | Unknown | + + + | Race | Unknown | + + + | Ethnic Group | Unknown | + + + Author + + + | Author | [facility] | | | and [place] | + + + | Organization | [facility] | | | [...] Team Providers + +------+ + | Care Ostomy Rn Name | Role | Phone | + +------+ + | Paul Boss MD | PCP | | + +------+ + Encounter Details +--------+ + + + + | Date | Type | Department | Care Team | Description | +--------+ + + + + | 01/18/ | Abstract | [facility] [place] | Sanjay Finnegan MD | | | 2017 | | NEUROSURGERY [address] | [address] | | | | | [address] | [place] [address] | | | | | [place] | [phone] | | | | | [address] | | | | | | [phone] | | | +--------+ + + + [...]
--- OUTSIDE RECORDS SUMMARY | ~2019-02-23 | XMS | Encounter Summary ---
Demographics + + + | Address | [address] | | | [place] [address] | + + + | Home Phone | | + + + | Preferred Language | Unknown | + + + | Marital Status | | + + + | Yazidi Affiliation | Unknown | + + + | Race | Unknown | + + + | Ethnic Group | Unknown | + + + Author + + + | Author | [facility] | | | and [place] | + + + | Organization | [facility] | | | [...] Team Providers + +------+ + | Care Wardrobe Assistant Name | Role | Phone | + [...] [address] | | | | [place], | [place], | | | | | [place] [address] | [place] [address] | | | | | [phone] | [phone] | | | | | | | [...]
--- OUTSIDE RECORDS SUMMARY | ~2019-02-23 | XMS | Encounter Summary ---
Demographics + + + | Address | [address] | | | [place] [address] | + + + | Home Phone [...] Team Providers + +------+ + | Care Stockroom Coordinator Name | Role | Phone | + +------+ + PCP | Unavailable | + +------+ + Encounter Details +--------+ + + + + | Date | Type | Department | Care Team | Description | +--------+ + + + + | 12/08/ | Document-Sc | [facility] | Sanjay Finnegan MD | | | 2017 | anned | Neurosurgery at [address] | [address] | | | | | [address] | [address] | | | | | [address] | [place] [address] | | | | | [place], [place] | [phone] | | | | | [address] | | | | | | [phone] | | | +--------+ + + + [...] Visit | | PA-C [address] | | | | | | [place], [place] | | | | | | [address] | | | | | | | | +--------+---------+ + + + documented as of this encounter Procedures + +--------+ + + + | Procedure Name | Priori | Date/Time | Associated Diagnosis | Comments | | | ty | | | | + +--------+ + + + | OUTSIDE RADIOLOGY - | | 12/08/2016 | | Results for this | | MRI | | 12:00 AM | | procedure are in the | | | | PDT | | results section. | + +--------+ + + + documented in this encounter Results OUTSIDE RADIOLOGY - MRI (12/08/2016 12:00 AM PDT) + + + | Narrative | Performed At | + + + | | | + + + documented in this encounter Visit Diagnoses Not on filedocumented in this encounter"
--- OUTSIDE RECORDS SUMMARY | ~2019-02-23 | XMS | Encounter Summary ---
Demographics + + + | Address | [address] | | | [place] [address] | + + + | Home Phone | | + + + | Preferred Language | Unknown | + + + | Marital Status | | + + + | Hindu Affiliation | Unknown | + + + [...] Team Providers + +------+ + | Care Apparatus Engineering Technologist Name | Role | Phone | + +------+ + | Kait Velazquez MD | PCP | | + +------+ + Reason for Visit + + + | Reason | Comments | + + + | Follow-up | Back Pain | + + + Follow Up (Routine) + + + + + + + | Status | Reason | Specialty | Diagnoses / | Referred By | Referred To | | | | | Procedures | Contact | Contact | + + + + + + + | Authorized | Specialty | Physical | Diagnoses | Caroline, | Ender, | | | Services | Medicine and | Lumbar | Kait Duque, | Tahir Maldonado MD | | | Required | Rehabilitatio | facet | MD [address] | [address] | | | | n | arthropathy | [address] | [address] [place] | | | | | [place] | [place], | [place], [place] | | | | | stenosis of | [place] | [address] Phone: | | | | | lumbar | [address] | [phone] | | | | | region | Phone: | Fax: | | | | | Lumbar | [phone] | [phone] | | | | | radiculopath | Fax: | | | | | | y | [phone] | | + + + + + + + Encounter Details +--------+---------+ + + + | Date | Type | Department | Care Team | Description | +--------+---------+ + + + | 12/25/ | Office | [facility] [place] | Shemar Gillis, | Lumbar radiculopathy | | 2019 | Visit | PHYSIATRY [address] | PA-C [address] | (Primary Dx) | | | | [place], | [address] [place] | | | | | [place] [address] | [place] [address] | | | | | [phone] | [phone] | | | | | | | [...] + + + | Blood Pressure | 124/60 | 12/25/2018 1:33 PM | | | | | PDT | | + + + + + | Pulse | 78 | 12/25/2018 1:33 PM | | | | | PDT [...] | 124 kg (273 lb 5.9 | 12/25/2018 1:33 PM | | | | oz) | PDT | | + + + + + | Height | 175.3 cm (5' 9") | 12/25/2018 1:33 PM | | | | | PDT | | + + + + + | Body Mass Index | 40.37 | 12/25/2018 1:33 PM | | | | | PDT | | + + + + + documented in this encounter Patient Instructions Patient Instructions Shemar Gillis PA-C - 12/25/2018 1:40 PM PDTFormatting of this note m ight be different from the original. Injections ordered. We will try to get you in [place]. We will coordinate with managing provider of anticoagulant prior to injection date. You will need to briefly discontinue blood thinning medication before injection. Injection orders usually take about a week for insurance to authorize my order. Once approv ed, we will call you for scheduling. Expect a call from our office in 7-10 days. Please remember to complete pain log form after having injection. This is an insurance requ irement and allows faster approval of any future injections. Follow-up at the hospital thirty minutes before [...] of the procedure you must provide a auto transport driver to take you home. Common Spine and Disk Problems The most common serious back problemshappen when disks tear, bulge, or rupture. In such c ases, an injured disk can no longer cushion the vertebrae and absorb shock. As a result, the rest of your spine may also weaken. This can lead to pain, stiffness, and other symptoms. Torn annulus. A sudden movement may cause a tiny tear in an annulus. Nearby ligaments ma y stretch. Contained herniated disk. As a disk wears out, the nucleus may bulge into the annulus an d press on nerves. Extruded herniateddisk. When a disk ruptures, its nucleus can squeeze out and irritate a nerve. Arthritis. As disks wear out over time, bone spurs form. These growths can irritate nerv es and inflame facets. Instability. As a disk stretches, the vertebrae slip back and forth. This can put pressu re on the annulus. Spondylolisthesis.Thisis a condition in which one vertebra has moved forward or back cowart, in relation to the one above or below it. Thiscauses a crack (stress fracture) in th e areas that link the vertebrae together. This may put pressure on the annulus, stretch the disk, and irritate nerves. Date Last Reviewed: 09/14/201719993967-0533 [employer]. [address] [place] [address], [place] [address]. All [facility] ts reserved. This information is not intended as a substitute for professional medical care. Always follow your healthcare professional's instructions. documented in this encounter Progress Notes Shemar Gillis PA-C - 12/25/2018 1:40 PM PDTFormatting of this note might be different fro m the original. Shemar Gillis PA-C [address] [facility], [address] [place] [address] FAX: CHIEF COMPLAINT: Chief Complaint Patient presents with Follow-up Back Pain HISTORY OF PRESENT ILLNESS: Antonio Azevedo Jr. is a 73 y.o. male being seen today in follow-up for complaints of low back pain. The patient has been seen for this complaint in the past. Previously it was recommended that he be seen by neurosurgeon at tertiary care center due to other commodities . Patient was seen and is scheduled for lumbar surgery. The surgeon stated the patient coul d try one more injection before 01/11/19 in an attempt to provide some relief until surgery. Patient is here today for injection eval. Overall the patient reports that the symptoms are worsening. He rates the pain as moderate . He describes the pain as aching, sharp, stabbing, burning or tingling. His symptoms wor sen with standing, bending, twisting, walking. His symptoms improve with nothing. The pat ient does describe numbness of the leg(s). He does report weakness of the leg(s). He does not have bowel and bladder dysfunction. He does not have saddle anesthesia. Treatments for these complaints have included PT, injections, medications, chiropractic, T ENS unit. Patient's medications, allergies, past medical, surgical, social and family histories were reviewed and updated as appropriate. CURRENT MEDICATIONS: Current Outpatient Medications Medication Sig [...] daily. 4 ezetimibe (ZETIA) 10 mg tablet take 1 tablet by mouth once daily ezetimibe (ZETIA) 10 mg tablet Take 10 [...] Allergies Allergen Reactions Food Shortness Of Breath Seafood, shellfish Formaldehyde Shortness Of Breath Iodinated Diagnostic Agents Shortness Of Breath and Rash Trouble Breathing Iodine Anaphylaxis Lovastatin Anaphylaxis, Diarrhea and Nausea And Vomiting Aches and pains Penicillins Shortness Of Breath and Rash Sodium Chloride Shortness Of Breath "hallogens" Tamsulosin Other (See Comments) Unable to remember Acetaminophen Hives Niacin And Related Other (See Comments) Doesn't recall Povidone Iodine Hives Hydrocodone-Acetaminophen Rash Review of Systems Constitutional: Negative for chills, diaphoresis, fever, malaise/fatigue and weight loss. Musculoskeletal: Positive for back pain. Negative for falls, joint pain, myalgias and neck pain. Neurological: Positive for tingling, sensory change and weakness. Negative for dizziness, t remors, speech change, focal weakness, seizures, loss of consciousness and headaches. Social History Socioeconomic History Marital status: Spouse name: Not on file Number of children: 2 Years of education: Not on file Highest education level: Not on file Social Needs Financial resource strain: Not on file Food insecurity - worry: Not on file Food insecurity - inability: Not on file Transportation needs - medical: Not on file Transportation needs - non-medical: Not on file Occupational History Comment: Retired Tobacco Use Smoking status: Former Smoker Packs/day: 1.00 Years: 22.00 Pack years: 22.00 Types: Cigarettes Last attempt to quit: 04/16/1990 Years since quittin.7 Smokeless tobacco: Never Used Substance and Sexual Activity Alcohol use: Yes Comment: Rare Drug use: Yes Types: Marijuana Comment: cbc lotion on lower back Sexual activity: Yes Other Topics Concern Not on file Social History Narrative Not on file PHYSICAL EXAMINATION: Blood pressure 124/60, pulse 78, height 1.753 m (5' 9"), weight 124 kg (273 lb 5.9 oz). Bod y mass index is 40.37 kg/m. GENERAL: The patient is well developed and well nourished. He does appear uncomfortable wh en seated. HEENT: Normocephalic and atraumatic. Normal sclerae without icterus. NECK (ANTERIOR): There is no apparent cervical lymphadenopathy or thyromegaly. PULMONARY: The patient is in no acute respiratory distress with unlabored respirations. CARDIOVASCULAR: There is not lower extremity edema. ABDOMEN: Non-distended. SKIN: Limited skin exam shows no significant rashes or lesions. NEUROLOGIC: The patient is awake, alert, and oriented. He follows simple and complex commands. His speech is fluent. He comprehends speech well. He has no apparent deficits with short or [facility] memory. The cranial nerves appear grossly intact. Sensory exam does show diminished sensation to light touch in the leg(s). REFLEX: RIGHT LEFT PATELLAR 2+ 2+ ACHILLES 2+ 2+ MUSCULOSKELETAL : Straight leg raise and slump-sit are negative. Quinn's maneuver and impingement testing were negative for any groin pain. There was no tenderness to palpation over the greater trochanters or sacral sulci. The patient localized the majority of the pain to the L5 region. Lumbar facet loading was negative. Strength testing showed 5/5 strength throughout the lower extremities. The patient was able to heel and toe walk without difficulty. There was no redness, effusion, warmth or joint line tenderness in the knees or ankles. RADIOGRAPHIC REVIEW: The patient's imaging was reviewed in detail with the patient today during the visit. Lumb ar MRI from 09/2018 shows ASSESSMENT: Encounter Diagnosis Name Primary? Lumbar radiculopathy Yes PLAN: 1) Today we discussed the patient's differential diagnosis with the likely primary issue be ing LUMBAR RADICULOPATHY. Patient's description of symptoms, physical exam, and imaging sugg est this diagnosis at this time. 2) I counseled patient on treatment options which included conservative self management usi ng OTC NSAIDs/Ice and heat packs, physical therapy, prescription medications, epidural stero id injection, neuromodulation devices, as well as possible surgical intervention. 3) Imaging: As descibed above in radiology review. 4) The patient has had significant conservative care including medications (NSAIDS and narc otics), PT (multiple sessions over the years) and manager intensive care. Unfortunately Antonio Mejia Azevedo Jr. continues to have significant discomfort. It appears to me that the pain is primarily coming from L4/5 and L5/S1 region I did feel that Antonio Azevedo Jr. would be a good candidate for interventional pr ocedures and I offered a LEFT L4/5 and L5/S1 TFESI to be done. I did feel that Antonio Azevedo Jr. would be a good candidate for medication: diclo fenac gel 1% order to pharmacy 5) Patient will follow up with me 3 weeks post injection/as needed to discuss any imaging a nd/or progress with today's treatment plan. 6) Patient is already scheduled for lumbar surgery I spent 30 minutes in visit with Antonio Azevedo Jr. today with the majority of time s pent counselling the patient on his diagnosis, options for his care, and coordinating his ca re. ELECTRONICALLY SIGNED BY: Shemar Gillis PA-C, 12/25/2018 documented in this en counter Plan of Treatment + +---------+--------+ + + | Name | Type | Priori | Associated Diagnoses | Order Schedule | | | | ty | | | + +---------+--------+ + + | [facility] Lumbar | Imaging | [place] | Lumbar | Expected: | | Transforaminal | | | radiculopathy | 12/25/2018, Expires: | | | | | | 01/12/2019 | + +---------+--------+ + + documented as of this encounter Visit Diagnoses + + | Diagnosis | + + | Lumbar radiculopathy - Primary Thoracic or lumbosacral neuritis or radiculitis, | | unspecified | + + documented in this encounter
--- OUTSIDE RECORDS SUMMARY | ~2019-02-23 | XMS | Encounter Summary ---
Demographics + + + | Address | [address] | | | [place] [address] | + + + | Home Phone | | + + + | Preferred Language | Unknown | + + + | Marital Status | | + + + | Sikh Affiliation | NRP | + + + [...] Team Providers + +------+ + | Care X Ray Consultant Name | Role | Phone | + +------+ + | Kait Velazquez MD | PCP | | + +------+ + Encounter Details +--------+ + + + + | Date | Type | Department | Care Team | Description | +--------+ + + + + | 02/20/ | Telephone | [facility] | Sanjay Finnegan MD | | | 2019 | | Neurosurgery at [address]th | [address] | | | | | [address] | [address] | | | | | [address] | [place] [address] | | | | | [place], [place] | [phone] | | | | | [address] | | | | | | [phone] | | | +--------+ + + + [...] + + documented as of this encounter Functional Status + + + [...] Kelly | | | | | | [place], [place] | | | | | | [address] | | | | | | | | +--------+---------+ + + + documented as of this encounter Visit Diagnoses Not on filedocumented in this encounter"
--- OUTSIDE RECORDS SUMMARY | ~2019-02-23 | XMS | Encounter Summary ---
Demographics + + + | Address | [address] | | | [place] [address] | + + + | Home Phone | | + + + | Preferred Language | Unknown | + + + | Marital Status | | + + + | Latter Day Affiliation | Unknown | + + + | Race | Unknown | + + + | Ethnic Group | Unknown | + + + Author + + + | Author | [facility] | | | and [place] | + + + | Organization | [facility] | | | [...] Team Providers + +------+ + | Care Leather Whitener Name | Role | Phone | + +------+ + | Paul Boss MD | PCP | | + +------+ + Encounter Details +--------+ + + + + | Date | Type | Department | Care Team | Description | +--------+ + + + + | 01/31/ | Abstract | [facility] [place] | Sanjay Finnegan MD | | | 2017 | | NEUROSURGERY [address] | [address] | | | | | [address] | [place] [address] | | | | | [place] | [phone] | | | | | [address] | | | | | | [phone] | | | +--------+ + + + [...]
--- OUTSIDE RECORDS SUMMARY | ~2019-02-23 | XMS | Encounter Summary ---
Demographics + + + | Address | [address] | | | [place] [address] | + + + | Home Phone | | + + + | Preferred Language | Unknown | + + + | Marital Status | | + + + | Presybeterian Affiliation | Unknown | + + + | Race | Unknown | + + + | Ethnic Group | Unknown | + + + Author + + + | Author | [facility] | | | and [place] | + + + | Organization | [facility] | | [...] Team Providers + +------+ + | Care Proof Inspector Name | Role | Phone | [...] | Lumbar | [place], | [address] | | | | | radiculopath | Tahir Maldonado MD | [place], | | | | | y | [address] | [place] | | | | | Procedures | [place] | [address] | | | | | [place] INJECT | [place], [place] | Phone: | | | | | ANES/STEROID | [address] | [phone] | | | | | [place] | Phone: | Fax: | | | | | LUMBAR/SACRA | [phone] | [phone] | | | | | [address] IM[address] | Fax: | | | | | | GUIDE ,1 | [phone] | | | | | | [place]EL [place] | | | | | | | [...] + + | 12/13/ | Hospital | [facility] | [place], | Lumbar radicular | | 2018 | Encounter | MED CTR XRAY [address] | [address] | pain; [address] | | | | [place] | [place] [address], | stenosis of lumbar | | | | [place] [address] | [place] [address] | region; DDD | | | | [phone] | [phone] | (degenerative disc | | | | | | disease), lumbar | | | | | [employer] [facility] | | +--------+ + + + + [...] 3:01 | | | | | ONCE, [facility] 12/13/17 at 1530, For 1 | [...] | | (Comment | | Intradermal, ONCE, [facility] 12/13/17 at | | PM PDT | | | ) | | 1530, For 1 dose | | | | | | + +-------+ +-------+---+ + +---+---+ | | | +---+---+ documented in this encounter"
--- OUTSIDE RECORDS SUMMARY | ~2019-02-23 | XMS | Encounter Summary ---
Demographics + + + | Address | [address] | | | [place] [address] | + + + | Home Phone | | + + + | Preferred Language | Unknown | + + + | Marital Status | | + + + | Druze Affiliation | Unknown | + + + | Race | Unknown | + + + | Ethnic Group | Unknown | + + + Author + + + | Author | [facility] | | | and [place] | + + + | Organization | [facility] | | | and [...] Team Providers + +------+ + | Care Window Trimmer Apprentice Name | Role | Phone | + [...] Description | +--------+--------+ + + + | 02/01/ | Refill | [facility] [place] | Carey, | Medication Refill | | 2017 | | PHYSIATRY [address] | [address] | | | | | [place], | [place], | | | | | [place] [address] | [place] [address] | | | | | [phone] | [phone] | | | | | | | [...]
--- OUTSIDE RECORDS SUMMARY | ~2019-02-23 | XMS | Encounter Summary ---
Demographics + + + | Address | [address] | | | [place] [address] | + + + | Home Phone | | + + + | Preferred Language | Unknown | + + + | Marital Status | | + + + | Rastafarian Affiliation | Unknown | + + + | Race | Unknown | + + + | Ethnic Group | Unknown | + + + Author + + + | Author | [facility] | | | and [place] | + + + | Organization | [facility] | | | [...] Team Providers + +------+ + | Care Voicer Name | Role | Phone | + +------+ + | Kait Velazquez MD | PCP | | + +------+ + Reason for Visit + + + | Reason | Comments | + + + | Medication Question | | + + + Encounter Details +--------+ + + + + | Date | Type | Department | Care Team | Description | +--------+ + + + + | 12/05/ | Telephone | [facility] [place] | Carey, | Medication Question | | 2017 | | PHYSIATRY [address] | [address] | | | | | [place], | [place] [facility], | | | | | [place] [address] | [place] [address] | | | | | [phone] | [phone] | | | | | | | [...]
--- OUTSIDE RECORDS SUMMARY | ~2019-02-23 | XMS | Encounter Summary ---
Demographics + + + | Address | [address] | | | [place] [address] | + + + | Home Phone | | + + + | Preferred Language | Unknown | + + + | Marital Status | | + + + | Confucianism Affiliation | NRP | + + + [...] Team Providers + +------+ + | Care Greenhouse Worker Name | Role | Phone | + +------+ + | Kait Velazquez MD | PCP | | + +------+ + Reason for Visit + + + | Reason | Comments | + + + | Pre-op evaluation | | + + + Encounter Details +--------+---------+ + + + | Date | Type | Department | Care Team | Description | +--------+---------+ + + + | 01/23/ | Office | [facility] | Franklin Cody, | Pre-op evaluation | | 2019 | Visit | Preoperative | [address] | (Primary Dx); Lumbar | | | | Assessment Clinic | [address] | degenerative disc | | | | [address] | [place] [address] | disease; Obstructive | | | | [address] | [phone] | sleep apnea | | | | [place], [place] | | syndrome; Coronary | | | | [address] | | arteriosclerosis in | | | | [phone] | | iliamna artery; | | | | | | Status post | | | | | | insertion of | | | | | | drug-eluting stent | | | | | | into left anterior | | | | | | descending (LAD) | | | | | | artery; Essential | | | | | | hypertension; | | | | | | Paroxysmal atrial | | | | | | fibrillation (HCC); | | | | | | Chronic deep vein | | | | | | thrombosis (DVT) of | | | | | | femoral vein of left | | | | | | lower extremity | | | | | | (HCC); Type 2 | | | | | | diabetes mellitus | | | | | | with stage 3 chronic | | | | | | kidney disease, | | | | | | without long-term | | | | | | current use of | | | | | | insulin (HCC); | | | | | | Expected difficult | | | | | | intubation | +--------+---------+ + + + Anesthesia Record + + [...] + + + | Blood Pressure | 142/75 | 01/23/2019 10:45 AM | | | | | PDT | | + + + + + | Pulse | 91 | 01/23/2019 10:45 AM | | | | | PDT | | + + + + + | Temperature | 37.6 C (99.6 F) | 01/23/2019 10:45 AM | | | | | PDT | | + + + + + | Respiratory Rate | 20 | 01/23/2019 10:45 AM | | | | | PDT | | + + + + + | Oxygen Saturation | 96% | 01/23/2019 10:45 AM | | | | | PDT | | + + + + + | Inhaled Oxygen | - | - | | | Concentration | | | | + + + + + | Weight | 126.6 kg (279 lb) | 01/23/2019 10:45 AM | | | | | PDT | | + + + + + | Height | 175.3 cm (5' 9") | 01/23/2019 10:45 AM | | | | | PDT | | + + + + + | Body Mass Index | 41.2 | 01/23/2019 10:45 AM | | | | | PDT | | + + + + + documented in this encounter Patient Instructions Patient Instructions Franklin Cody MD - 01/23/2019 10:30 AM PDTEmpty stomach before tristen rajan On the day BEFORE your surgery, drink plenty of fluids and stay well hydrated NOTHING to eat or drink after midnight the night before surgery, or 8 hours prior to tristen rajan. This includes water, coffee, candy, mints, gum. Medications Instructions: Hold ASPIRIN, NSAIDS (e.g. ADVIL, MOTRIN, IBUPROFEN, ALEVE), vitamin E, herbal supplements, [place] 3 fish oil 7-10 days before surgery depending on surgeon's instructions. Hold diclofenac 10 days before surgery STOP ELIQUIS 48 HRS BEFORE SURGERY (FULL 2 DAYS). LAST DOSE ON 01/31 Take all your usual medications before surgery as you normally do until the morning of surg sahil, then follow the instructions below: TAKE ONLY the following medications with a sip of water on the morning of surgery: Levothyroxine If you need a pain medication for general purposes, use Tylenol as directed. OK to take it even on the morning of surgery, if needed. If you are in doubt about any medications that you are taking, please contact our office . Other Important Guidelines ? Do not shave the surgical area Do not smoke, drink alcohol or use recreational drugs for 24 hours before your surgery Watch for any change in your health condition. Let your surgeon know right away if you do not feel well. ? Do not wear makeup, perfume, lotions, deodorant, powder or hairspray. Do not wear any jewelry to the hospital. Wear loose, comfortable clothing. Leave all your valuables at home. Allow enough travel time so you re not late for your check in for surgery. ? Take a bath or shower and remember to shampoo your hair using your usual hair product bef ore your arrival at the hospital. Please remember to brush your teeth the night before and the morning of your procedure. Preventing post op complications while you are in the hospital Use an incentive spirometer or deep breathe to keep your lungs working properly an d to help prevent respiratory complications. It helps you take long, deep breaths. Use it at least once every hour while you are awake. Leg and feet exercises will maintain good circulation and help prevent blood clots in yo ur legs. Sometimes your doctor will order air compression stockings. Compressed air helps the circulation in your legs. Walking and moving will help stimulate normal circulation and deep breathing. After you r surgery, your nurse may ask you to sit, stand or walk. Going Home Your surgical team will decide when you are medically ready to go home. If you are released to go home on the same day as your procedure/surgery please note the following: You will not be able to drive. You will be required to have a competent person drive you or accompany you by taxi or pu blic transportation on the day of discharge. It is also required that you have a competent person assist you and look after you on e first night after you have undergone regional blocks (72 hours for patients going home wit h regional block pump), deep sedation, and/or general [...] bottle of 4.0% Chlorhexidine Gluconate solution from [employer], or your local drug [...] . documented in this encounter Progress Notes Franklin Cody MD - 01/23/2019 10:30 AM PDTFormatting of this note might be different fr om the original. PREOPERATIVE ASSESSMENT CLINIC CONSULT NOTE Referring Surgeon: MORGAN DISLA MD Age: 73 y.o. Primary Care Provider: Kait Velazquez MD Surgery Planned: XLIF L4-5, TLIF L5-S1 Date of Planned Surgery: 02/03/19 Reason for Consult: Preoperative evaluation and risk assessment HISTORY OF PRESENT ILLNESS: Antonio Azevedo is a 73 y.o. male here for preoperative evaluat ion of medical problems in anticipation of the above procedure. Lumbar back pain for many y ears. Pain is constant, varies from sharp/shooting to dull/throbbing ache, radiates to both legs L > R, with foot numbness and leg weakness, better if sitting or laying on back, worse if standing or walking. Failed conservative measures. Primary dx: Lumbar degenerative di sc disease + lumbar foraminal stenosis with radiculopathy. ROS: Prior Anesthetic Problems: No Pulmonary: no shortness of breath no cough no wheezing Pt. 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 Has no asthma no COPD Dx of sleep a pnea Uses BiPap/CPAP Cardiovascular: no chest pain no CHF no hypertension CAD Sx cardiac stents no valvular problems/murm urs arrhythmia Atrial fibrillation/flutter GI/Hepatic: no GERD no liver disease Renal: no renal failure Urology/Rougher Helper: Within Defined Limits except as noted below Endo: Diabetes: type 2 diet Neuro/Psych: No cva, sz pain Current pain score: 5 Musculoskeletal: arthritis Type: osteoarthritis Manifestations: Extremities (Arms, Legs, Hands) Additional C omments: Heme/Onc: Skin cancers no bleeding disorder No clotting disorders no malignancy Infectious Disease: no MRSA Skin: no open wounds No active skin infections AutoImmune Disorders: autoimmune disorders within defined limits Past medical history reviewed / updated Past Medical History: Diagnosis Date Arthritis Bleeding tendency (HCC) BP (high blood pressure) Diabetes (HCC) Heart disease High cholesterol Sleep apnea Thyroid disorder Past surgery reviewed / updated Past Surgical History Procedure Laterality Date Knee surgery 2013, 2015 Total replacement of left shoulder joint Femur surgery Left 1977 Coronary stent placement 2017 Family history reviewed / updated Family History Problem Relation Hypertension Mother Heart Disease Mother Cancer Mother Diabetes Mother Heart Attack Father Arthritis Sister Atrial fibrillation Sister No Known Problems Brother Lung Cancer Sister Social history reviewed / updated Social History Tobacco Use Smoking status: Former Smoker Last attempt to quit: 1990 Years since quittin.7 Smokeless tobacco: Never Used Substance Use Topics Alcohol use: Not Currently Drug use: Yes Comment: CBD Oil- Pain Past Anesthesia history reviewed / updated Patient: No Complications Family: No Complications Perioperative cardiac risks: Intraperitoneal or Intrathoracic no CAD yes CHF no CVA no CKD with creatinine >2 no DM treated with insulin no Current medications reviewed / updated Current Outpatient Medications Medication Sig amitriptyline 75 [...] tablet, sublingual Place 0.4 mg under tongue. oxyCODONE (immediate release) 5 mg oral tablet Take 1 tablet by mouth every twelve hour s as needed for severe pain (for pain.). Allergies reviewed / updated Allergies Allergen Reactions Formaldehyde Dyspnea Iodinated Contrast Media Rash and Dyspnea Trouble Breathing Iodine Anaphylaxis Lovastatin Anaphylaxis, Diarrhea and Nausea and Vomiting Aches and pains Aches and pains Nut - Unspecified Dyspnea Seafood, shellfish Penicillins Unknown, Rash and Dyspnea Does not remember Sodium Chloride Dyspnea "hallogens" Hydrocodone-Acetaminophen Rash Does not remember Niacin Unknown Doesn't recall Povidone-Iodine Urticaria Sulfa (Sulfonamide Antibiotics) Unknown Physical Exam: Last Vitals: BP 142/75 (BP Location: Right upper arm, Patient Position: Sitting) | Pulse 9 1 | Temp 37.6 C (99.6 F) (Forehead) | Resp 20 | Ht 1.753 m (5' 9") | Wt 126.6 kg (27 9 lb) | SpO2 96% | BMI 41.20 kg/m | BSA 2.48 m Body mass index is 41.2 kg/m. General: Appearance: Age appropriate, No distress and Smiling LOC: Alert HEENT: Normocephalic/Atraumatic, Normal sclerae/conjunctivae, EOMI, PERRL and Oropharyngeal mucos a pink/moist Airway: Dentition: dentures-upper Dentition Comments: partial upper and lower Mallampati: 3 Mouth O pening: > 3 cm TM Distance:> 6 cm Vidales: Yes C-Spine ROM: Normal Neck Anatomy: Thick, obese Jaw Protrusion: Normal (lower incisors go above upper incisors) Pulmonary: Respiratory: pulmonary exam normal Breath Sounds: breath sounds normal Cardiovascular: Rhythm: Regular Rate: Normal Cardiovascular comments: NO MURMURS, GALLOPS, CAROTIID BRUITS Abdomen: General: Normal Body Habitus: obesity Bowel Sounds: bowel sounds are normal Musculoskeletal: Range of Motion: Normal range of motion Neuro/Psych: Affect: Normal Cognitive Status: Normal Speech: Normal speech Cranial Nerves: Normal Skin: Color: skin color normal Texture: Normal Turgor: turgor normal Temperature: Warm REVIEW/MANAGEMENT CMP + CBC FROM 01/20/19 REVIEWED FROM OUTSIDE FACILITY: ALL SATISFACTORY (UNDER MEDIA TAB 1 ) Lab Results Component Value Date ABO B 01/23/2019 RH Negative 01/23/2019 [facility] ([facility]): EK12/26/2018: Normal sinus rhythm, persistent low voltage QRS to inferior leads consistent with previous inferior KS, low voltage QRS to limb leads V 1, V2. Rate 69 bpm, NC 140 ms, QRS 82 ms, QTC 430 ms, tracing personally reviewed by Mercedes MANCINI, and similar morphology to EKG performed in January 2018 Outside records reviewed from [facility] and "media" tab. Findings pertinent to this pr eoperative visit are as follows: Perioperative risk calculators Lockett Activity Scale (METS): > 4 Revised Cardiac Risk Index (RCRI) Estimate of major adverse cardiac events: 0.9% Janey Perioperative Cardiac Risk: 0.39% ASA class 3 ASSESSMENT and RECOMMENDATIONS: Perioperative risk assessment: Antonio Azevedo is a 73 y.o. male with diagnosis of LUM BAR STENOSIS, scheduled for XLIF + TLIF. Based on the clinical information obtained and rev iewed during this visit, the overall assessment is that the patient is having elective major surgery with identified risk factors. The patient is optimized for surgery. Additional te sting is not needed. Medication management recommendations: The patient was advised to continue all usual med ications except as noted in Patient Instructions (After Visit Summary given to pt). Pre-procedure antibiotic recommendation: Per standard protocol. OBSTRUCTIVE SLEEP APNEA: Compliant with cpap Instructed to bring on day of surgery. CORONARY ARTERY DISEASE: JOSH to mid-LAD (2017). Asymptomatic. Seen at cardiology office ([place]) last month for preop eval without issues. [...] until switching to asa + apixaban in 2016. Had hematology cons ultation with Dr. Mahin Marks ([place], [place]. [phone]) on 10/14 11/01 for perioperative anticoagulation management. He states the following: "Regarding the proposed surgery, typically discontinuation of the ODAC (oral direct anticoagulant) is done 2-3 days before surgery, then resumed 2-3 days afterwards for major procedures. Certainly a spirin would need to be discontinued before the procedure as well. While bridging with low m olecular weight heparin is an option, that will increase the risk of perioperative bleeding and that at most would normally be considered postoperatively until the ODAC is resumed." T he recommendation seems to be in agreement with the current plan, which is to stop apixaban and asa preop without bridging. He does not appear to be advocating perioperative bridging. Will contact Dr. Marks for confirmation/clarification. TYPE 2 DIABETES: Diet controlled. A1c today 6.6, acceptable to proceed. DIFFICULT INTUBATION: Anatomy strongly suggestive of difficult direct laryngoscopy. Video laryngoscopic intubation likely needed. I spent time (60 minutes, >50% of the visit) obtaining and reviewing extensive external [facility] records, counseling the pt regarding perioperative risk (cardiac/bleeding/ DVT/ respir atory failure/ infection, etc) and methods to mitigate risk. I advised the patient regardin g NPO requirements, hydration before surgery, showering, general body hygiene. All pre-proc edure instructions given to the patient (after-visit summary). All of patient's questions w ere addressed. The patient verbalized understanding of the instructions given. Thank you for the opportunity to contribute to this patient's care. Franklin Cody MD [facility] [address] [place] [address] PREOPERATIVE ASSESSMENT CLINIC [address] [place] [id number] Trini Castillo MA - 01/23/2019 10:30 AM PDTI have reviewed medical history, medication and allergies with the patient. Blood drawn from right arm no ekg done Additional Information: Indicators of possible sleep apnea: Has been observed to snore loudly, Feels tired or fati gued during daytime, Has been observed to stop breathing while asleep and Currently being tr eated for HTN Current home treatments: CPAP Prostheses/Implants: yes - hardware in shoulder and knee and heart stent Assistive Devices: None Will accept a Blood Transfusion, if needed? yes Hospitalization in the last 60 days? no If so, where and why? Dental Issues: False teeth Trini Campa MA [facility] PREOPERATIVE ASSESSMENT CLINIC [address] [place] [phone] documented in this en counter Plan of Treatment +--------+---------+ + + + | Date | Type | Specialty | Care Team | Description | +--------+---------+ + + + | 02/28/ | Office | Neurological Surgery | Cosme Baker, | | | 2018 | Visit | | [facility] [address] | | | | | | [place], [place] | | | | | | [id number] | | | | | | | | +--------+---------+ + + + documented as of this encounter Procedures + +--------+ + + + | Procedure Name | Priori | Date/Time | Associated Diagnosis | Comments | | | ty | | | | + +--------+ + + + | CULTURE, MRSA/MSSA | Routin | 01/23/2019 | Pre-op evaluation | Results for this | | SCREEN | e | 12:18 PM | | procedure are in the | | | | PDT | | results section. | + +--------+ + + + | ANTIBODY SCREEN | Routin | 01/23/2019 | Pre-op evaluation | Results for this | | | e | 12:18 PM | | procedure are in the | | | | PDT | | results section. | + +--------+ + + + | TYPE AND SCREEN | Routin | 01/23/2019 | Pre-op evaluation | Results for this | | | e | 12:18 PM | | procedure are in the | | | | PDT | | results section. | + +--------+ + + + | ABO & RH TYPE | Routin | 01/23/2019 | Pre-op evaluation | Results for this | | | e | 12:18 PM | | procedure are in the | | | | PDT | | results section. | + +--------+ + + + | HEMOGLOBIN A1C, | Routin | 01/23/2019 | Pre-op evaluation | Results for this | | BLOOD | e | 12:18 PM | | procedure are in the | | | | PDT | | results section. | + +--------+ + + + documented in this encounter Results ANTIBODY SCREEN (01/23/2019 12:18 PM PDT) + + + + + + | Component | Value | Ref Range | Performed | Pathologist | | | | | At | Signature | + + + + + + | Antibody | Negative | | [facility] - | | | Screen | | | BLOOD BANK | | [...] BLOOD | [address] | [place] [address] | | | BANK | | | | + + + + + ABO & RH TYPE (01/23/2019 12:18 PM PDT) + + + + + [...] BLOOD | [address] | [place] [address] | | | BANK | | | | + + + + + CULTURE, MRSA/MSSA SCREEN (01/23/2019 12:18 PM PDT) + + + + + + | Component | Value | Ref Range | Performed | Pathologist | | | | | At | Signature | + + + + + + | CULTURE | No Methicillin Resistant | | [facility] | | | RESULT | Staph aureus (MRSA) or | | [facility] | | | MRSA/MSSA | Methicillin Susceptible | | | | | | Staph aureus (MSSA) | | | | | | isolated. | | | | + + + + + + + + | Specimen | + + | Swab - Nasal | | (qualifier value) | + + + + + + + | Performing | Address | City/State/Zipcode | Phone Number | | Organization | | | | + + + + + | [facility] | [address] | [place] [address] | | | LAB | | | | + + + + + HEMOGLOBIN A1C, BLOOD (01/23/2019 12:18 PM PDT) + +---------+ + + + | Component | Value | Ref Range | Performed | Pathologist | | | | | At | Signature | + +---------+ + + + | HEMOGLOBIN | 6.6 (H) | <5.7 % | [facility] | | | A1C | | | [facility] | | + +---------+ + + + | ESTIMATED | 143 | mg/dL | [facility] | | | AVERAGE | | | [facility] | | | GLUCOSE | | | | | + +---------+ + + + + + | Specimen | + + | Blood - Blood | | (substance) | + + + + + | Narrative | Performed At | + + + | Hgb A1c Normal: Less than 5.7% Diabetic Goal: Less than 7.0% | | | Increased risk for Diabetes: 5.7-6.4% Provisional Diagnosis of | [facility] | | Diabetes: Greater than, or equal to 6.5% New Reference Range based on | [facility] | | the [place] [employer]'s Standards of Medical Care in | | | Diabetes - 2012. | | + + + + + + + + | Performing | Address | City/State/Zipcode | Phone Number | | Organization | | | | + + + + + | [facility] | [address] | [place] [address] | | | LAB | | | | + + + + + documented in this encounter Visit Diagnoses + + | Diagnosis | + + | Pre-op evaluation - Primary Preoperative examination, unspecified | + + | Lumbar degenerative disc disease Degeneration of lumbar or lumbosacral intervertebral | | disc | + + | Obstructive sleep apnea syndrome Obstructive sleep apnea (adult) (pediatric) | + + | Coronary arteriosclerosis in iliamna artery Coronary atherosclerosis of iliamna | | coronary artery | + + | Status post insertion of drug-eluting stent into left anterior descending (LAD) artery | + + | Essential hypertension | + + | Paroxysmal atrial fibrillation (HCC) Atrial fibrillation | + + | Chronic deep vein thrombosis (DVT) of femoral vein of left lower extremity (HCC) | + + | Type 2 diabetes mellitus with stage 3 chronic kidney disease, without long-term | | current use of insulin (HCC) | + + | Expected difficult intubation | + + documented in this encounter
--- OUTSIDE RECORDS SUMMARY | ~2019-02-23 | XMS | Encounter Summary ---
Demographics + + + | Address | [address] | | | [place] [address] | + + + | Home Phone | | + + + | Preferred Language | Unknown | + + + | Marital Status | | + + + | Scientologist Affiliation | NRP | + + + [...] Team Providers + +------+ + | Care Glove Boarder Name | Role | Phone | + [...] | | | | [address] | [place] [address] | | | | | [place], [place] | [phone] | | | | | [address] | | | | | | [phone] | | | +--------+ + + + [...] [place] | | | | | | [address] | | | | | | | | +--------+---------+ + + + documented as of this encounter Visit Diagnoses Not on filedocumented in this encounter"
--- OUTSIDE RECORDS SUMMARY | ~2019-02-23 | XMS | Encounter Summary ---
Demographics + + + | Address | [address] | | | [place] [address] | + + + | Home Phone | | + + + | Preferred Language | Unknown | + + + | Marital Status | | + + + | Oriental Orthodox Affiliation | Unknown | + + + | Race | Unknown | + + + | Ethnic Group | Unknown | + + + Author + + + | Author | [facility] | | | and [place] | + + + | Organization | [facility] | | | and [...] + +------+ + | Care Manager Of Training Name | Role | Phone | + [...] | Lumbar | [place], | [address] | | | | | spondylosis | Tahir Maldonado MD | [place], | | | | | Lumbar | [address] | [place] | | | | | Spondylosis | [place] | [address] | | | | | Procedures | [place] | Phone: | | | | | [place] IN[place] | [address] | [phone] | | | | | DX/THER AGNT | Phone: | Fax: | | | | | PAR[place]ERT | [phone] | [phone] | | | | | FACET JOINT, | Fax: | | | | | | LUMBAR/SAC, | [phone] | | | | | | 1ST LEVEL | | | | | | | [place] IN[place] | | | | | | | DX/THER AGNT | | | | | | | [place]ERT | | | | | | | FACET JOINT, | | | | | | | LUMBAR/SAC, | | | | | | | 2ND LEVEL | | | | | | | Bilat. L3, | | | | | | | L4 MBB and | | | | | | | Bilat. L5 | | | | | | | dorsal root | | | | | | | rami | | | | | | | lidocain | | | | | | | block #1 | | | +--------+--------+ + + + + Encounter Details +--------+ + + + + | Date | Type | Department | Care Team | Description | +--------+ + + + + | 08/31/ | Hospital | [facility] | Carey, | Lumbar facet | | 2018 | Encounter | MED CTR XRAY [address] | [place] [address] | arthropathy (HCC); | | | | [place] | [facility], | DDD (degenerative | | | | [place] [address] | [place] [address] | disc disease), | | | | [phone] | [phone] | lumbar; Lumbar | | | | | | spondylosis | | | | | [place] | | +--------+ + + + + [...] +---------+ + + | Blood Pressure | 155/72 | 08/31/2017 11:48 AM | | | | | PDT [...] | FL FACET INJECTION | Routin | 08/31/2017 | Lumbar facet | Results for this | | LUMBAR SACRAL | e | 11:29 AM | arthropathy (HCC) | procedure are in the | | | | PDT | DDD (degenerative | results section. | | | | | disc disease), | | | | | | lumbar Lumbar | | | | | | spondylosis | | + +--------+ + + + documented in this encounter Results FL Facet Injection Lumbar Sacral (08/31/2017 11:29 AM PDT) + + | Specimen | + + | | + + + + -+ | Narrative | Performed At | + + -+ | | [facility] | | 08/31/2017Bilateral Lumbar Medial Branch Block Diagnosis: Lumbar | [...] L4-L5 and L5-S1 facet joints. After informed consent | | | was obtained, the patient lay in a prone position on the fluoroscopy | | | table. The areas were identified under fluoroscopic guidance. The | | | areas were prepped and draped in a sterile fashion. A 25-gauge | | | 1.5-inch needle was inserted into each region and approximately 2 mL | | | of buffered 1% lidocaine was infused. Then a 22-gauge spinal needle | | | was advanced to the correct position at each site under fluoroscopic | | | guidance. Confirmation into the proper location was obtained with | | | infusion of a small amount of Isovue contrast at each site. Then 0.5 | | | mL of 0.5% bupivacaine was infused at each location. Pre- and | | | postprocedure blood pressures were stable. The patient was given | | | verbal as well as written followup instructions. The patient was | | | reexamined after the procedure. He reported moderate improvement of | | | his symptoms after the procedure. His symptoms were improved with | | | bending and twisting maneuvers. The patient was instructed to keep a | | | detailed pain diary of the response to treatment and will return the | | | pain diary to our office within the next few days for further | | | evaluation and additional treatment planning. Prior to the start of | | | the procedure, the following were performed and/or verified, including | | | correct patient identity, correct site/side marked and visible, | | | agreement on the procedure to be done, correct patient positioning and | | | an accurate procedure consent form. Any safety precautions based on | | | clinical history and/or medication use have been addressed. I | | | personally performed the procedure above. Estimated blood loss: | | | MinimalComplications: NoneFindings: As expectedAnesthesia: Local 1% | | | Lidocaine | | |visible, agreement on the [...] intervertebral disc | + + | Lumbar spondylosis Lumbosacral spondylosis without myelopathy | + + documented in this encounter Administered Medications + +--------+ +-------+------+ + | Medication Order | MAR | Action | Dose | Rate | Site | | | Action | Date | | | | + +--------+ +-------+------+ + | lidocaine buffered 1.5% | Given | 09/01/19 | 6 mLs | | Other | | injection 6 mL 6 mL, | | 18 11:33 | | | (Comment | | Intradermal, ONCE, 08/31/17 at | | AM PDT | | | ) | | 1145, For 1 dose | | | | | | + +--------+ +-------+------+ + +---+---+ | | | +---+---+ + +-------+ +-------+---+---+ | ropivacaine (NAROPIN) 5 mg/mL | Given | 09/01/19 | 3 mLs | | | | (0.5%) injection 3 mL 3 mL, | | 18 11:36 | | | | | PERINEURAL, ONCE, Sun08/31/17 at | | AM PDT | | | | | 1145, For 1 dose | | | | | | + +-------+ +-------+---+---+ +---+---+ | | | +---+---+ documented in this encounter"
--- OUTSIDE RECORDS SUMMARY | ~2019-02-23 | XMS | Encounter Summary ---
Demographics + + + | Address | [address] | | | [place] [address] | + + + | Home Phone | | + + + | Preferred Language | Unknown | + + + | Marital Status | | + + + | Worship Affiliation | Unknown | + + + | Race | Unknown | + + + | Ethnic Group | Unknown | + + + Author + + + | Author | [facility] | | | and [place] | + + + | Organization | [facility] | | [...] Providers + +------+ + | Care Manager Wholesale Name | Role | Phone | + +------+ + | Paul Boss MD | PCP | | + +------+ + Encounter Details +--------+ + + + + | Date | Type | Department | Care Team | Description | +--------+ + + + + | 12/21/ | Imaging | [facility] | Provider, | | | 2017 | Exam | MED CTR EXTERNAL | [address] | | | | | IMAGING | [address] | | | | | [phone] | [place] [address] | | +--------+ + + + + [...] | + +--------+ + + + | MRI LUMBAR SPINE WO | Routin | 12/08/2016 | | Results for this | | CONTRAST | e | 10:00 AM | | procedure are in the | | | | PDT | | results section. | + +--------+ + + + documented in this encounter Results MRI Lumbar Spine wo Contrast (12/08/2016 10:00 AM PDT) + + | Specimen | + + | | + + + + + | Narrative | Performed At | + + + | External films for comparison only - no result from [place]. | [facility] | + + + + +---------+ + + | Performing | Address | City/State/Zipcode | Phone Number | | Organization | | | | + +---------+ + + | [facility] | | | | + +---------+ + + documented in this encounter Visit Diagnoses Not on filedocumented in this encounter"
--- OUTSIDE RECORDS SUMMARY | ~2019-02-23 | XMS | Clinical Summary ---
Demographics + + + | Address | [address] | | | [place] [address] | + + + | Home Phone | | + + + | Preferred Language | Unknown | + + + | Marital Status | | + + + | Sikh Affiliation | Unknown | + + + | Race | Unknown | + + + | Ethnic Group | Unknown | + + + Author + + + | Author | [employer] [facility] (Historical as of | | | 11-30-18) | + + + | Organization | [facility] (Historical as of | | | 11-30-18) | + + + | Address | Unknown | + + + | Phone | Unavailable | + + + Support + + +---------+ + | Name | Relationship | Address | Phone | + + +---------+ + | Gaetze,Lara | ECON | Unknown | | + + +---------+ + Care Team Providers + +------+ + | Care Liquor Grinder Mill Operator Name | Role | Phone | + +------+ + | Kait Velazquez MD | PP | | + +------+ + Allergies + [...] | Anaphylaxis, | High | 09/21/19 | | | | Diarrhea, Nausea and | | 17 | | | | Vomiting | | | | + + + + + + | Penicillins | Other (See Comments) | Medium | 09/21/19 | Does not remember | | | | | 17 | | + + + + + + | Hydrocodone-Acetamin | Other (See Comments) | Medium | 09/21/19 | Does not remember | | ophen | | | 17 | | + + + + + + Current Medications + + +--------+---------+------+------+-------+ | Prescription | Sig. | Disp. | Refills | Star | End | Statu | | | | | | t | Date | s | | | | | | Date | | | + + +--------+---------+------+------+-------+ | Cholecalciferol | Take 1,000 Units by | | | | | Activ | | 1000 units capsule | mouth daily. | | | | | e | + + +--------+---------+------+------+-------+ | B Complex-C (SUPER | Take by mouth. | | | | | Activ | | B COMPLEX PO) | | | | | | e | + + +--------+---------+------+------+-------+ | | Take 1 tablet by | | | | | Activ | | oxyCODONE-acetaminop | mouth 2 (two) times | | | | | e | | hen (PERCOCET) 5-325 | daily. | | | | | | | MG per tablet | | | | | | | + + +--------+---------+------+------+-------+ | metoprolol | Take 50 mg by mouth | | | | | Activ | | (TOPROL-XL) 50 MG 24 | daily. | | | | | e | | hr tablet | | | | | | | + + +--------+---------+------+------+-------+ | metFORMIN | Take 100 mg by mouth | | | | | Activ | | (GLUCOPHAGE) 500 MG | daily with | | | | | e | | tablet | breakfast. | | | | | | + + +--------+---------+------+------+-------+ | levothyroxine | Take 50 mcg by mouth | | | | | Activ | | (SYNTHROID) 50 MCG | every morning | | | | | e | | tablet | before breakfast. | | | | | | + + +--------+---------+------+------+-------+ | famotidine | Take 40 mg by mouth | | | | | Activ | | (PEPCID) 40 MG | daily. | | | | | e | | tablet | | | | | | | + + +--------+---------+------+------+-------+ | Archie MISC | by Does not apply | | | | | Activ | | | route. | | | | | e | + + +--------+---------+------+------+-------+ | Desoximetasone | Apply topically. | | | | | Activ | | 0.05 % GEL | | | | | | e | + + +--------+---------+------+------+-------+ | Blood Glucose | by Other route. | | | | | Activ | | Monitoring Suppl | | | | | | e | | (BLOOD GLUCOSE | | | | | | | | MONITOR SYSTEM) | | | | | | | | w/Device device kit | | | | | | | + + +--------+---------+------+------+-------+ | ferrous sulfate, | Take 65 mg of iron | | | | | Activ | | 65 FE, 324 (65 FE) | by mouth 2 (two) | | | | | e | | MG EC tablet | times daily. | | | | | | + + +--------+---------+------+------+-------+ | furosemide (LASIX) | Take 40 mg by mouth | | | | | Activ | | 40 MG tablet | daily. | | | | | e | + + +--------+---------+------+------+-------+ | diltiazem | Take 300 mg by mouth | | | | | Activ | | (CARDIZEM CD) 300 MG | daily. | | | | | e | | 24 hr capsule | | | | | | | + + +--------+---------+------+------+-------+ | aspirin 81 MG | Take 81 mg by mouth | | | | | Activ | | tablet | daily. | | | | | e | + + +--------+---------+------+------+-------+ | lisinopril | Take 1 tablet by | | | 10/1 | | Activ | | (ZESTRIL) 10 MG | mouth daily. | | | 1/20 | | e | | tablet | | | | 17 | | | + + +--------+---------+------+------+-------+ | buPROPion | Take 150 mg by mouth | | | | | Activ | | (WELLBUTRIN XL) 150 | every morning. | | | | | e | | MG 24 hr tablet | | | | | | | + + +--------+---------+------+------+-------+ | gabapentin | Take 100 mg by mouth | | | | | Activ | | (NEURONTIN) 100 MG | 3 (three) times | | | | | e | | capsule | daily. | | | | | | + + +--------+---------+------+------+-------+ | apixaban (ELIQUIS) | Take 5 mg by mouth 2 | | | | | Activ | | 5 MG tablet | (two) times daily. | | | | | e | + + +--------+---------+------+------+-------+ | carBAMazepine | Take 100 mg by mouth | | | | | Activ | | (TEGRETOL) 100 MG | 3 (three) times | | | | | e | | chewable tablet | daily. | | | | | | + + +--------+---------+------+------+-------+ | TURMERIC PO | Take by mouth. | | | | | Activ | | | | | | | | e | + + +--------+---------+------+------+-------+ | DiphenhydrAMINE | Take by mouth. | | | | | Activ | | HCl (BENADRYL PO) | | | | | | e | + + +--------+---------+------+------+-------+ | L-METHYLFOLATE PO | Take 15 mg by mouth | | | | | Activ | | | daily. | | | | | e | + + +--------+---------+------+------+-------+ | ezetimibe (ZETIA) | take 1 tablet by | 90 | 0 | 10/14 | | Activ | | 10 MG tablet | mouth once daily | tablet | | 11/02 | | e | | | | | | 19 | | | + + +--------+---------+------+------+-------+ Active Problems + + + | Problem | Noted Date | + + + | Morbid obesity (HCC) | 08/08/2017 | + + + | Foraminal stenosis of lumbar region | 04/13/2017 | + + + | Coronary artery disease involving [place] coronary artery of | 10/28/2016 | | [place] heart without angina pectoris | | + + + | Benign hypertension | 09/20/2016 | + + + | Paroxysmal atrial fibrillation (HCC) | 09/20/2016 | + + + | Chronic deep vein thrombosis (DVT) of femoral vein of left lower | 09/20/2016 | | extremity (HCC) | | + + + | APRIL on CPAP | 09/20/2016 | + + + Resolved Problems + + + + | Problem | Noted | Resolved | | | Date | Date | + + + + | Coronary artery calcification seen on CAT scan | 09/21/19 | | | | 17 | 7 | + + + + Family History + +------+ + + | Relation | Name | Status | Comments | + +------+ + + | Father | | | heart attack | | | | (Age | | | | | 74) | | + +------+ + + | Mother | | | heart attack | | | | (Age | | | | | 88) | | + +------+ + + Social History + +-------+ +--------+------+ | Tobacco Use | Types | Packs/Day | Years | Date | | | | | Used | | + +-------+ +--------+------+ | Former Smoker | | | | | + +-------+ +--------+------+ + +---+---+---+ | Smokeless Tobacco: | | | | | Never Used | | | | + +---+---+---+ + + +---------+ + | Alcohol Use | Drinks/We | oz/Week | Comments | | | ek | | | + + +---------+ + | Yes | | | occ | + + +---------+ + + + + | Sex Assigned at | Date Recorded | | | | + + + | Not on file | | + + + Last Filed Vital Signs + + + + | Vital Sign | Reading | Time Taken | + + + + | Blood Pressure | 126/76 | 02/06/2018 8:53 AM PDT | + + + + | Pulse | 71 | 02/06/2018 8:53 AM PDT | + + + + | Temperature | - | - | + + + + | Respiratory Rate | - | - | + + + + | Oxygen Saturation | 96% | 02/06/2018 8:53 AM PDT | + + + + | Inhaled Oxygen | - | - | | Concentration | | | + + + + | Weight | 120.8 kg (266 lb 6.4 | 02/06/2018 8:53 AM PDT | | | oz) | | + + + + | Height | 175.3 cm (5' 9") | 02/06/2018 8:53 AM PDT | + + + + | Body Mass Index | 39.34 | 02/06/2018 8:53 AM PDT | + + + + Plan of Treatment + + + + + | Health Maintenance | Due Date | Last Done | Comments | + + + + + | Vaccine: | | | | | Dtap/Tdap/Td (1 - | 5 | | | | Tdap) | | | | + + + + + | Colon Cancer | | | | | Screening | 6 | | | | (Colonoscopy) | | | | + + + + + | Vaccine: Zoster (1 | | | | | of 2) | 6 | | | + + + + + | Vaccine: | | | | | Pneumococcal 65+ | 1 | | | | Low/Medium Risk (1 | | | | | of 2 - PCV13) | | | | + + + + + | Vaccine: Influenza | | | | | (#1) | 9 | | | + + + + + Results Not on filefrom Last 3 Months Insurance + +--------+ +------+-------+ + | Payer | Benefi | Subscriber | Type | Phone | Address | | | t Plan | ID | | | | | | / | | | | | | | Group | | | | | + +--------+ +------+-------+ + | [employer] [place] | MUTUAL | [id number] | | | | | | [place] | | | | | | | [place] | | | | | + +--------+ +------+-------+ + | MEDICARE | MEDICA | [id number] | | | [address] | | | RE | | | | [place] [address] | | | IP-OP | | | | | + +--------+ +------+-------+ + + +--------+ +--------+ + + | Guarantor Name | Accoun | Relation to | Date | Phone | Billing Address | | | t Type | Patient | of | | | | | | | | | | + +--------+ +--------+ + + | NOLA VELASCO | Person | Self [birth year] Home: | [address] | | | [place] | | 1945 | [phone] | [place] | | | fernanda | | | [address] | [address] | + +--------+ +--------+ + +
--- OUTSIDE RECORDS SUMMARY | ~2019-02-23 | XMS | Encounter Summary ---
Demographics + + + | Address | [address] | | | [place] [address] | + + + | Home Phone [...] Team Providers + +------+ + | Care Circular Knitter Helper Name | Role | Phone | + +------+ + | Kait Velazquez MD | PCP | | + +------+ + Encounter Details +--------+ + + + + | Date | Type | Department | Care Team | Description | +--------+ + + + + | 12/20/ | Telephone | [facility] | Cosme Baker, | | | 2018 | | Neurosurgey [address] | PA-C [address] | | | | | [facility] | [place], [place] | | | | | [place] [address] | [address] | | | | | [phone] | | | +--------+ + + + [...] [place] | | | | | | [facility] [place] | | | | | | [address] | | | | | | | | +--------+---------+ + + + documented as of this encounter Visit Diagnoses Not on filedocumented in this encounter"
--- OUTSIDE RECORDS SUMMARY | ~2019-02-23 | XMS | Encounter Summary ---
Demographics + + + | Address | [address] | | | [place] [address] | + + + | Home Phone | | + + + | Preferred Language | Unknown | + + + | Marital Status | | + + + | Scientology Affiliation | Unknown | + + + | Race | Unknown | + + + | Ethnic Group | Unknown | + + + Author + + + | Author | [facility] | | | and [place] | + + + | Organization | [facility] | | | [...] Team Providers + +------+ + | Care Sports Therapist Name | Role | Phone | + +------+ + | Paul Boss MD | PCP | | + +------+ + Encounter Details +--------+ + + + + | Date | Type | Department | Care Team | Description | +--------+ + + + + | 02/02/ | [facility] | [facility] | Sanjay Finnegan MD | Back pain, | | 2017 | Encounter | MED CTR XRAY [address] | [address] | unspecified back | | | | [address] [place] | [place] [address] | location, | | | | [place] [address] | [phone] | unspecified back | | | | [phone] | | pain laterality, | | | [...] + + | Performing | Address | City/State[facility] | Phone Number | | Organization [...]
--- OUTSIDE RECORDS SUMMARY | ~2019-02-23 | XMS | Encounter Summary ---
Demographics + + + | Address | [address] | | | [place] [address] | + + + | Home Phone | | + + + | Preferred Language | Unknown | + + + | Marital Status | | + + + | Mormon Affiliation | NRP | + + + [...] Team Providers + +------+ + | Care Recovery Unit Operator Name | Role | Phone | + +------+ + | Kait Velazquez MD PCP | | + +------+ + Encounter Details +--------+--------+ + + + | Date | Type | Department | Care Team | Description | +--------+--------+ + + + | 02/03/ | Travel | | | | | [...] [place] | | | | | | [place] | | | | | | [address] | | | | | | | | +--------+---------+ + + + documented as of this encounter Visit Diagnoses Not on filedocumented in this encounter"
--- OUTSIDE RECORDS SUMMARY | ~2019-02-23 | XMS | Encounter Summary ---
Demographics + + + | Address | [address] | | | [place] [address] | + + + | Home Phone | | + + + | Preferred Language | Unknown | + + + | Marital Status | | + + + | Adventist Affiliation | Unknown | + + + [...] Team Providers + +------+ + | Care Ciso Name | Role | Phone | + +------+ + | Paul Boss MD | PCP | | + +------+ + Encounter Details +--------+ + + + + | Date | Type | Department | Care Team | Description | +--------+ + + + + | 04/19/ | Orders Only | [facility] | Tahir Handley | Lumbar spondylosis | | 2018 | | PHYSIATRY [address] | [address] | (Primary Dx) | | | | [place], | [facility] [place] | | | | | [place] [address] | [address] | | | | | [phone] | | | +--------+ + + + [...] + + | Performing | Address | City/State/[facility] | Phone Number | | Organization | | | | + +---------+ + + | [facility] | | | | + +---------+ + + documented in this encounter Visit Diagnoses + + | Diagnosis | + + | Lumbar spondylosis - Primary Lumbosacral spondylosis without myelopathy | + + documented in this encounter"
--- OUTSIDE RECORDS SUMMARY | ~2019-02-23 | XMS | Encounter Summary ---
Demographics + + + | Address | [address] | | | [place] [address] | + + + | Home Phone | | + + + | Preferred Language | Unknown | + + + | Marital Status | | + + + | Hindu Affiliation | NRP | + + + [...] Team Providers + +------+ + | Care Central Supply Clerk Name | Role | Phone | + +------+ + | Kait Velazquez MD | PCP | | + +------+ + Encounter Details +--------+ + + + + | Date | Type | Department | Care Team | Description | +--------+ + + + + | 11/19/ | Hospital | Diagnostic Imaging | Cosme Baker, | | | 2018 | Encounter | at [facility] | PA-C [address] | | | | | Healthcare [address] | [place], [place] | | | | [facility] [id number] | | | | | [place] [address] | | | | | | [phone] | | | +--------+ + + + [...] 2018 | Visit | | [place] [address] | | | | | | [place], [place] | | | | | | [address] | | | | | | | [...] RADIOLOGY | [address] | [place] [address] | [phone] | | VOICE RECOGNITION | | | | + + + + + documented in this encounter Visit Diagnoses + + | Diagnosis | + + | Back pain, unspecified back location, unspecified back pain laterality, unspecified | | chronicity | + + documented in this encounter"
--- OUTSIDE RECORDS SUMMARY | ~2019-02-23 | XMS | Encounter Summary ---
Demographics + + + | Address | [address] | | | [place] [address] | + + + | Home Phone | | + + + | Preferred Language | Unknown | + + + | Marital Status | | + + + | Restorationist Affiliation | Unknown | + + + | Race | Unknown | + + + | Ethnic Group | Unknown | + + + Author + + + | Author | [facility] | | | and [place] | + + + | Organization | [facility] | | | and [...] Team Providers + +------+ + | Care Doper Name | Role | Phone | + +------+ + | Kait Velazquez MD | PCP | | + +------+ + Reason for Referral Evaluate & Treat (Routine) +--------+ + + + + + | Status | Reason | Specialty | Diagnoses / | Referred By | Referred To | | | | | Procedures | Contact | Contact | +--------+ + + + + + | Closed | Specialty | Physical | Diagnoses | Ty | [facility] | | | Services | Therapy | DDD | Day | [facility] | | | Required | | (degenerativ | [address] | PHYSICAL | | | | | e disc | [address] | | | | | disease), | [address] | | | | | lumbar | [address] | [place], [place] | | | | | Lumbar | [address] | [address] | | | | | spondylosis | [place], | Phone: | | | | | Obesity, | [place] [address] | [phone] | | | | | unspecified | Phone: | Fax: | | | | | classificati | [phone] | [phone] | | | | | on, | Fax: | | | | | | unspecified | [phone] | | | | | | obesity | | | | | | | type, | | | | | | | unspecified | | | | | | | whether | | | | | | | serious | | | | | | | comorbidity | | | | | | | present St | | | | | | | [facility] | | | | | | | Procedures | | | | | | | Scheduled | | | | | | | 07/31 HIM | | | | | | | 07/08/18 | | | +--------+ + + + + + Reason for Visit + + + | Reason | Comments | + + + | Follow-up | Discuss symptoms | + + + Encounter Details +--------+---------+ + + + | Date | Type | Department | Care Team | Description | +--------+---------+ + + + | 07/05/ | Office | [facility] | Day Crawford | DDD (degenerative | | 2019 | Visit | NEUROSURGERY [address] | [address] | disc disease), | | | | [facility] | [facility] [address] | lumbar (Primary Dx); | | | | [place], [place] | [address] [place], [place] | Lumbar spondylosis; | | | | [address] | [address] | Obesity, | | | | [phone] | | unspecified | | | | | | classification, | | | | | | unspecified obesity | | | | | | type, unspecified | | | | | | whether serious | | | | | | comorbidity present | +--------+---------+ + + + Social History [...] + + + | Blood Pressure | 116/60 | 07/05/2018 10:13 AM | | | | | PDT | | + + + + + | Pulse | 72 | 07/05/2018 10:13 AM | | | | | PDT | | + + + + + | Temperature | - | - | | + + + + + | Respiratory Rate | 16 | 07/05/2018 10:13 AM | | | | | PDT | | + + + + + | Oxygen Saturation | - | - | | + + + + + | Inhaled Oxygen | - | - | | | Concentration | | | | + + + + + | Weight | 123.4 kg (272 lb) | 07/05/2018 10:13 AM | | | | | PDT | | + + + + + | Height | 175.3 cm (5' 9") | 07/05/2018 10:13 AM | | | | | PDT | | + + + + + | Body Mass Index | 40.17 | 07/05/2018 10:13 AM | | | | | PDT | | + + + + + documented in this encounter Patient Instructions Patient Instructions Darlyn Membreno Swine Genetics Researcher - 07/05/2018 10:00 AM PDT 1. I have placed a referral for physical therapy, the referral will be sent to [facility]. They will contact you to schedule. 2. Follow-up with Dr. Handley for further evaluation and recommendations. documented in this encounter Progress Notes Day Crawford PA-C - 07/05/2018 10:00 AM PDTFormatting of this note might be diffe rent from the original. Breanna Crawford PA-C [address] [facility] [place] [place], [address] [place] [address] PHONE: FAX: NEUROSURGERY FOLLOW-UP CHIEF COMPLAINT: Chief Complaint Patient presents with Follow-up Discuss symptoms HISTORY OF PRESENT ILLNESS: The patient is a 73 y.o. male that presents for a follow up to discuss his symptoms. Patient returns and overall is doing fair. Patient was last seen on 01/02/2018 with the complaints of back and left leg pain. It was r ecommended that he return in 6 months to re-evaluate symptoms. Today the patient has complains of back pain. He states his pain level is a 7-8/10 on a jazmyn ly basis. The patient had a fluoroscopically guided radiofrequency ablation of the bilateral L3, L4 m edial branches and bilateral L5 dorsal rami as part of conservative management for chronic p ain and lumbar spondylosis by Dr. Handley on 05/20/2018. The patient reports this procedure gave him relief in legs but not his back pain. The patient has a history of blood clots and AFIB. He's had 3 different episodes of blood clots in his legs. He takes his Eliquis for this as well as his atrial fibrillation really has a history of coronary artery disease with previous stenting. He states he has never had a hematology workup. CURRENT MEDICATIONS: Current Outpatient Prescriptions Medication Sig [...] Comments) Doesn't recall Hydrocodone-Acetaminophen Rash SOCIAL HISTORY: The patient reports that he quit smoking about 28 years ago. His smoking use included Ciga rettes. He has a 22.00 pack-year smoking history. He has never used smokeless tobacco. He re ports that he drinks alcohol. He reports that he uses drugs, including Marijuana. REVIEW OF SYSTEMS: GENERALLY: No fever, no night sweats, no anemia, no fatigue, no recent profound weight ch anges. EYES: No eye problems, no impaired sight, no use of corrective lenses, no eye injury, no d ouble vision, no transient blindness. EARS, NOSE, AND THROAT: No changes in taste or smell, no hearing difficulty, no ringing in the ears, no ear drainage, no ear injury, no dizziness, no voice changes, no difficulty swa llowing, no significant snoring, no sleep apnea/CPAP, no sinus problems, no major dental wor k. NEUROLOGICALLY: Please see the review of systems discussed above in the history of present illness. In addition, the patient has pain in back. PSYCHIATRIC: No depression, no difficulty sleeping, no anxiety, no [...] inence, no bladder problems, no impotence. ENDOCRINE: No diabetes, no thyroid disease, no osteopenia or osteoporosis, no breast drain age. SKIN: No breast lumps, no skin disease or skin changes, no rashes/itches. HEMATOLOGIC/LYMPHATIC: No enlarged lymph nodes, no easy or unusual bleeding, no personal h istory of cancer. RHEUMATOLOGIC: + joint pain/arthritis, no rheumatoid arthritis. INTERIM PHYSICAL EXAMINATION: Blood pressure 116/60, pulse 72, resp. rate 16, height 1.753 m (5' 9"), weight 123.4 kg (27 2 lb). Body mass index is 40.17 kg/m. GENERAL: Antonio Azevedo Jr. is in no acute distress with unlabored respirations. The patient does not appear uncomfortable throughout the exam [...] masses. The patient is obese . SPINE: The lumbar spine shows there is tenderness in the midline of the L4, L5 levels. To palpation, there is no significant myofascial tenderness. There is no significant pain to provacative testing of the SI joint. There is no major deformity noted. EXTREMITIES: No cyanosis, clubbing, or edema. Distal pulses are palpable. NEUROLOGICAL EXAM: MENTAL STATUS: The patient is awake, alert, and oriented. He follows simple and complex commands. His speech is fluent, he comprehends speech well, and he repeats well. He has no apparent deficits with short or termite technician memory. CRANIAL NERVES: II: Acuity is [...] OR 2+ IS NORMAL) REFLEX: RIGHT LEFT PATELLAR 2+ 2+ ACHILLES 2+ 2+ RIZVI'S ABSENT ABSENT PLANTAR DOWNGOING DOWNGOING GAIT: Gait is steady. PERIPHERAL NERVE/MISC: Straight leg raise is negative bilaterally. Quinn's test of the hips is negative bilaterally. TEST AND RADIOGRAPHIC REVIEW: The patient did not have new imaging to be reviewed at today's office visit. ASSESSMENT: Outpatient Morphine Equivalent Daily Dose (MEDD) None Encounter Diagnoses Name Primary? DDD (degenerative disc disease), lumbar Yes Lumbar spondylosis Obesity, unspecified classification, unspecified obesity type, unspecified whether seri ous comorbidity present Past Medical History: Diagnosis Date Atherosclerosis Atrial [...] 10/27/2016 Venous insufficiency Wears partial dentures PLAN: Overall, the patient is doing fairly well. The patient has a history of LBP that is somewhat improved with injections. The patient key s stable symptoms but they continue to impair the patient significantly. We had a lengthy discussion with the patient about his options for care including surgical and non-surgical options. I would like this patient to follow up with Physiatry in prn for ongoing chronic low back p ain conservative options. In the event that he would like to pursue surgery he will get sandra avila from Dr. Handley. IDay PA-C, personally performed the services described in this document ation, as scribed by NIKKO Deluca in my presence, and it is both accurate and complete . Breanna Crawford PA-C 07/05/18 ELECTRONICALLY SIGNED BY: Breanna Crawford PA-C, 07/05/2018 11:24 documented in this encounter Plan of Treatment + + +--------+ + + | Name | Type | Priori | Associated Diagnoses | Order Schedule | | | | ty | | | + + +--------+ + + | [facility] | Routin | DDD (degenerative | Ordered: 07/05/2018 | | Hospital Physical | Referral | e | disc disease), | | | Therapy, External - | | | lumbar Lumbar | | | [facility]B Referral | | | spondylosis | | | | | | Obesity, unspecified | | | | | | classification, | | | | | | unspecified obesity | | | | | | type, unspecified | | | | | | whether serious | | | | | | comorbidity present | | + + +--------+ + + documented as of this encounter Visit Diagnoses + + | Diagnosis | + + | DDD (degenerative disc disease), lumbar - Primary Degeneration of lumbar or | | lumbosacral intervertebral disc | + + | Lumbar spondylosis Lumbosacral spondylosis without myelopathy | + + | Obesity, unspecified classification, unspecified obesity type, unspecified whether | | serious comorbidity present | + + documented in this encounter
--- OUTSIDE RECORDS SUMMARY | ~2019-02-23 | XMS | Encounter Summary ---
Demographics + + + | Address | [address] | | | [place] [address] | + + + | Home Phone | | + + + | Preferred Language | Unknown | + + + | Marital Status | | + + + | Sabianist Affiliation | Unknown | + + + [...] Team Providers + +------+ + | Care Motor Pool Clerk Name | Role | Phone | + +------+ + | Paul Boss MD | PCP | | + +------+ + Encounter Details +--------+---------+ + + + | Date | Type | Department | Care Team | Description | +--------+---------+ + + + | 04/04/ | Office | [facility] | Zaina Nagy MS | Sensorineural | | 2017 | Visit | AUDIOLOGY AND | [facility] [address] | hearing loss (SNHL) | | | | [facility] | [address] [place] | of both ears | | | | [address] | [place] [address] | (Primary Dx); | | | | [address] [place] | [phone] | Subjective tinnitus, | | | | [place] [address] | | right | | | | [phone] | | | +--------+---------+ + + + [...] documented as of this encounter Progress Notes Zaina Nagy MS CCC-A - 04/04/2017 11:00 AM PSTReferring Provider: No additional provider found M.D. Otoscopy showed the both ear canal impacted with wax--duly removed by Dr. Guerin, Sr. Mr. Azevedo tells me that his right ear started to ring around June this year. About thr ee to four weeks ago, he was unable to hear out of the right ear. Otoscopy showed both ear canals to be impacted with wax. Results of Hearing Test: Right ear--Pure tone air and bone conduction testing showed 25-20d B threshold at 250 Hz through 1 KHz and 40-55dB at 1500 Hz through 8 KHz. Left ear --Pure tone air and bone conduction testing showed 20dB threshold at 250 Hz th rough 1 KHz and 35-60dB at 2 KHz through 8 KHz. Speech Recognition Thresholds were 20dB in the right ear and 20dB in the left ear. Speech Discrimination Scores were 88% in right ear and 100% in the left ear. Tympanometry showed normal type A tracings in both ears. Impression and Recommendation: A bilateral sensory-neural hearing loss with subjective tin nitus in the right ear. Follow-up care with Dr. Christina, ENT. Thank you. documented in thi s encounter Plan of Treatment Not on filedocumented as of this encounter Visit Diagnoses + + | Diagnosis | + + | Sensorineural hearing loss (SNHL) of both ears - Primary | + + | Subjective tinnitus, right | + + documented in this encounter"
--- OUTSIDE RECORDS SUMMARY | ~2019-02-23 | XMS | Encounter Summary ---
Demographics + + + | Address | [address] | | | [place] [address] | + + + | Home Phone | | + + + | Preferred Language | Unknown | + + + | Marital Status | | + + + | Confucianist Affiliation | Unknown | + + + | Race | Unknown | + + + | Ethnic Group | Unknown | + + + Author + + + | Author | [facility] | | | and [place] | + + + | Organization | [facility] | | | and [...] Team Providers + +------+ + | Care Metal Casket Assembler Name | Role | Phone | + +------+ + | Kait Velazquez MD | PCP | | + +------+ + Encounter Details +--------+ + + + + | Date | Type | Department | Care Team | Description | +--------+ + + + + | 08/20/ | Orders Only | [facility] | Shemar Gillis, | Medication refill | | 2019 | | PHYSIATRY [address] | PA-C [address] | (Primary Dx) | | | | [place], | [address] [place] | | | | | [place] [address] | [place] [address] | | | | | [phone] | [phone] | | | | | | | [...]
--- OUTSIDE RECORDS SUMMARY | ~2019-02-23 | XMS | Encounter Summary ---
Demographics + + + | Address | [address] | | | [place] [address] | + + + | Home Phone | | + + + | Preferred Language | Unknown | + + + | Marital Status | | + + + | Holiness Affiliation | Unknown | + + + | Race | Unknown | + + + | Ethnic Group | Unknown | + + + Author + + + | Author | [facility] | | | and [place] | + + + | Organization | [facility] | | | and [...] Team Providers + +------+ + | Care Car Usher Name | Role | Phone | + +------+ + | Paul Boss MD | PCP | | + +------+ + Reason for Visit + + + | Reason | Comments | + + + | Follow-up | 6m therapy follow up | + + + Encounter Details +--------+---------+ + + + | Date | Type | Department | Care Team | Description | +--------+---------+ + + + | 04/13/ | Office | [facility] | Thomas Lawler | Lumbar facet | | 2017 | Visit | NEUROSURGERY [address] | [address] | arthropathy; | | | | [address] | [address] | Foraminal stenosis | | | | [place], [place] | [place], [place] | of lumbar region; | | | | [phone] | [id number] | DDD (degenerative | | | | [phone] | | disc disease), | | | | | | lumbar; Lumbar | | | | | | radicular pain | +--------+---------+ + + + Social History [...] + + + | Blood Pressure | 102/60 | 04/13/2017 9:44 AM | | | | | PST | | + + + + + | Pulse | 68 | 04/13/2017 9:44 AM | | | | | PST [...] + + + + | Weight | 121 kg (266 lb 12.1 | 04/13/2017 9:44 AM | | | | oz) | PST | | + + + + + | Height | 175.3 cm (5' 9") | 04/13/2017 9:44 AM | | | | | PST | | + + + + + | Body Mass Index | 39.39 | 04/13/2017 9:44 AM | | | | | PST | | + + + + + documented in this encounter Patient Instructions Patient Instructions Thomas Lawler PA-C - 04/13/2017 9:45 AM PSTToday we decided t o order L4-5 bilateral facet injections. We will have you return to the office approximatel y 2 months after these injections have been completed to check on your progress. Today you told me he will be discontinuing her Plavix in the middle of April. He will also need to discontinue your Coumadin prior to that injection. 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 Thomas Lawler PA-C [address] [facility] [place] [address] [place] [address] FAX: NEUROSURGERY FOLLOW-UP CHIEF COMPLAINT: Chief Complaint Patient presents with Follow-up 6m therapy follow up HISTORY OF PRESENT ILLNESS: The patient is a 72 y[address] male that Dr. Finnegan and MAKSIM Gomez saw on 02/02/17 for back and left leg pain. He returns and overall is doing well. The patient has had a major change in their neurologic symptoms . His leg symptoms have improv ed. He no longer has radicular symptoms pain in his legs but he is had increased back pain The patient complains of intermittent mid back pain. This pain is new since he was last se en. He states he no longer has pain in his left calf. He is currently doing home therapy. Arlette martin is walking 5,000 steps a day when the weather is good. The patient states he will be off p lavix in the middle of April for a stent that was placed October 2016. He does not complain o f heart or chest problems. PAST MEDICAL HISTORY: Past Medical History: Diagnosis Date Atherosclerosis Atrial fibrillation (HCC) Enlarged prostate with lower urinary tract symptoms (LUTS) Essential hypertension Hyperlipidemia Hypothyroidism Impaired fasting glucose Lumbar disc disease with radiculopathy Obesity Osteoarthrosis Osteoarthrosis involving lower leg Prostate hyperplasia with urinary obstruction Skin neoplasm malignant Venous insufficiency PAST SURGICAL HISTORY: Past Surgical History: Procedure Laterality Date APPENDECTOMY CARPAL TUNNEL RELEASE Right COLONOSCOPY 2009 [facility] CORONARY ANGIOPLASTY 10/27/2016 [place] FEMUR SURGERY Left KNEE ARTHROSCOPY Left 2004 NOSE SURGERY SHOULDER SURGERY Left 1979 Weeks; [facility] [place] SHOULDER SURGERY Right 2006 SKIN CANCER EXCISION 2012 Forehead squamous cell SKIN GRAFT Right Ankle TONSILLECTOMY AND ADENOIDECTOMY TOTAL KNEE ARTHROPLASTY Right 2013 Rojas; [facility] [place] TOTAL KNEE ARTHROPLASTY Left 2015 Rojas; [facility] [place] VASECTOMY CURRENT MEDICATIONS: Current Outpatient Prescriptions Medication Sig Dispense Refill B Complex-C (SUPER B COMPLEX/VITAMIN C PO) Take 1 tablet by mouth Daily. cholecalciferol (VITAMIN D-3) 1,000 units capsule Take 1,000 Units by mouth Daily. clopidogrel (PLAVIX) 75 mg tablet Take 75 mg by mouth Daily. Desoximetasone 0.05 % GEL Apply 1 Application topically 2 times daily. ezetimibe (ZETIA) 10 mg tablet Take 10 mg by mouth Daily. famotidine (PEPCID) 40 MG tablet Take 1 tablet by mouth nightly. 1 furosemide (LASIX) 40 mg tablet Take 40 mg by mouth Daily. levothyroxine (SYNTHROID) 50 mcg tablet Take 50 mcg by mouth Daily. lisinopril (PRINIVIL, ZESTRIL) 5 mg tablet Take 5 mg by mouth 2 times daily. metFORMIN (GLUCOPHAGE) 500 mg tablet Take 500 mg by mouth Daily. metoprolol succinate (TOPROL-XL) 50 mg 24 hr tablet Take 50 mg by mouth Daily. nitroglycerin (NITROSTAT) 0.[address] 0.4 mg under the tongue as needed. oxyCODONE-acetaminophen (PERCOCET) 5-325 mg per tablet Take 1 tablet by mouth 4 times d aily as needed (Taking .5 am and 1 pm). warfarin (COUMADIN) 5 mg tablet Take 7.5 mg by mouth Daily. No current facility-administered medications for this visit. ALLERGIES: Allergies Allergen Reactions Lovastatin Anaphylaxis, Diarrhea and Nausea And Vomiting Aches and pains Hydrocodone-Acetaminophen Other (See Comments) Does not remember Penicillins Rash and Other (See Comments) Trouble Breathing Tamsulosin Other (See Comments) Unable to remember Formaldehyde Other (See Comments) Reaction not specified in care everywhere Hydrocodone Other (See Comments) Reaction not specified in care everywhere Niacin And Related Other (See Comments) Reaction not specified in care everywhere Sodium Chloride Other (See Comments) Reaction not specified in care everywhere Iodinated Diagnostic Agents Rash and Other (See Comments) Trouble Breathing SOCIAL HISTORY: The patient reports that he quit smoking about 27 years ago. His smoking use included Ciga rettes. He has a 22.00 pack-year smoking history. He has never used smokeless tobacco. He re ports that he drinks alcohol. He reports that he does not use drugs. FAMILY HISTORY: Family History Problem Relation Age of Onset Heart disease Mother Diabetes Mother Cancer Mother Arthritis Mother Heart disease Father Bleeding problems Father Blood Clots Lung cancer Brother Lung cancer Sister No Known Problems Maternal Grandmother No Known Problems Maternal Grandfather No Known Problems Paternal Grandmother Cancer Paternal Grandfather High blood pressure Other Bleeding problems Paternal Uncle Blood Clots INTERIM PHYSICAL EXAMINATION: Blood pressure 102/60, pulse 68, height 1.753 m (5' 9"), weight 121 kg (266 lb 12.1 oz). Yoni dy mass index is 39.39 kg/m. GENERAL: Antonio Azevedo Jr. is in no acute distress with unlabored respirations. HEENT: HEAD/FACE: Normocephalic and atraumatic. There are no areas of recent trauma. CHEST: Clear to ausculation without crackles or wheeze. HEART: Regular rate and rhythm without murmurs. SPINE: Tenderness to palpation at L4/L5 and over L5. EXTREMITIES: No lower extremity edema. NEUROLOGICAL EXAMINATION: MENTAL STATUS: The patient is awake, alert, and oriented. He follows simple and complex commands. He speech is fluent, his comprehends speech well, and his repeats well. He has no apparent deficits with short or remote computer terminal operator memory. CRANIAL NERVES: Fundoscopic Exam: The optic disc is sharp. Normal vascular pattern is visualized II: Acuity is intact. Uriarte are full [...] Intrinsics 5 5 Ulnar Intrinsics 5 5 Cattle Killer Strength 5 5 Hip Flexion 5 5 Hip Extension 5 5 Knee Flexion 5 5 Knee Extension 5 5 Dorsiflexion 5 5 Extensor Hallicus Longus 5 5 Plantarflexion 5 5 SENSORY EXAM: Sensory exam shows no diminished sensation to light touch or pain throughout the upper and lower extremities. REFLEXES: (2 OR 2+ IS NORMAL) REFLEX: RIGHT LEFT BICEPS 2 2 BRACHIORADIALIS 2 2 TRICEPS 2 2 PATELLAR 2 2 ACHILLES 2 2 RIZVI'S ABSENT ABSENT PLANTAR DOWNGOING DOWNGOING GAIT: Gait is steady. PERIPHERAL NERVE/MISC: Straight leg raise is negative bilaterally. Quinn's test of the hips is negative bilaterally. REVIEW OF SYSTEMS GENERALLY: No fever, no night sweats, no anemia, no fatigue, no recent profound weight ch anges. EYES: No eye problems, + use of corrective lenses, no eye injury, no double vision, no bli ndness. EARS, NOSE, AND THROAT: No changes in taste or smell, no hearing difficulty, + ringing in the ears, no ear drainage, no dizziness, no voice changes, no difficulty swallowing, no sign ificant snoring, + sleep apnea, no sinus problems, no major dental work. NEUROLOGICALLY: Please see the review of systems discussed above in the history of present illness. PSYCHIATRIC: No depression, no sleep disorders, no anxiety, no bipolar disorder, no psycho tic episodes. CARDIOVASCULAR: No heart attacks, no heart murmur, no heart fluttering, no chest pain, no ankle swelling. LUNG DISEASE: No shortness of breath, no cough, no tuberculosis, no bloody cough, no asth ma, no emphysema/COPD. GASTROINTESTINAL: No bowel disease, no nausea or vomiting, no rectal bleeding, no constipa tion, no stool incontinence, no liver disease, no gallbladder disease, no abdominal pain, no ulcers. KIDNEY DISEASE: No urinary frequency, no painful or difficult urination, no incontinence. ENDOCRINE: No diabetes, no thyroid disease, no osteopenia or osteoporosis, no breast drain age. SKIN: No breast lumps, no skin changes, no rashes, no itches. HEMATOLOGIC/LYMPHATIC: No enlarged lymph nodes, no easy or unusual bleeding, no personal h istory of cancer. RHEUMATOLOGIC: + joint arthritis, no rheumatoid arthritis. ASSESSMENT: Encounter Diagnoses Name Primary? 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 Overall, the patient is doing well. His leg symptoms hav e improved and his weakness of his left leg has improved since he was seen. He will be comi ng off of his Plavix. He would like to intensify conservative therapy I had a lengthy discussion with the patient about his options for care including surgical a nd non-surgical options. The patient decided that their best option based on my opinion was to continue with weight loss. We will also order L4-5 bilateral facet injections. I will have him return 2 months after his injections. These should be scheduled for around the end of April or the beginning of May. 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 He understands she needs to be off of these prior to hi s injection ELECTRONICALLY SIGNED BY: Thomas Lawler PA-C, 04/13/2017 10:30 I, Thomas Lawler PA-C, personally performed the services described in this documentation , as scribed by Yvonne Chandra RN in my presence, and it is both accurate and complete. Thomas Lawler PA-C 04/13/2017 documented in this encounter Plan of Treatment Not [...] intervertebral disc | + + | Lumbar radicular pain Thoracic or lumbosacral neuritis or radiculitis, unspecified | + + documented in this encounter
--- OUTSIDE RECORDS SUMMARY | ~2019-02-23 | XMS | Encounter Summary ---
Demographics + + + | Address | [address] | | | [place] [address] | + + + | Home Phone | | + + + | Preferred Language | Unknown | + + + | Marital Status | | + + + | Holiness Affiliation | NRP | + + + [...] Team Providers + +------+ + | Care Cocktail Waitress Name | Role | Phone | + +------+ + | Kait Velazquez MD | PCP | | + +------+ + Reason for Referral Occupational Therapy (Routine) + +--------+ + + + + | Status | Reason | Specialty | Diagnoses / | Referred By | Referred To | | | | | Procedures | Contact | Contact | + +--------+ + + + + | New Request | | Occupational | Diagnoses | Sea, | | | | | Therapy | Lumbar | Chloe Brown DO | | | | | | foraminal | [address] [facility] | | | | | | stenosis | [address] Room | | | | | | Lumbar | [address] | | | | | | degenerative | [place], | | | | | | disc | [place] [address] | | | | | | disease | Phone: | | | | | | Procedures | [phone] | | | | | | OCCUPATIONAL | Fax: | | | | | | THERAPY | [phone] | | | | | | REFERRAL | | | + +--------+ + + + + Physical Therapy (Routine) + +--------+ + + + + | Status | Reason | Specialty | Diagnoses / | Referred By | Referred To | | | | | Procedures | Contact | Contact | + +--------+ + + + + | New Request | | Physical | Diagnoses | Sea, | | | | | Therapy | Lumbar | Chloe Brown DO | | | | | | foraminal | [address] [facility] | | | | | | stenosis | Ave Room | | | | | | Lumbar | [address] | | | | | | degenerative | [facility] | | | | | | disc | [place] [address] | | | | | | disease | Phone: | | | | | | Procedures | [phone] | | | | | | PHYSICAL | Fax: | | | | | | THERAPY | [phone] | | | | | | REFERRAL | | | + +--------+ + + + + Reason for Visit AUTH/CERT +--------+--------+ + [...] + + + + | 02/03/ | Hospital | [facility] | Sanjay Finnegan MD | | | 2019 - | Encounter | [address] | [address] | | | | | [place] [address] | [address] | | | 02/10/ | | [phone] | [place] [address] | | | 2019 | | | [phone] | | +--------+ + + + + [...] See chart review tab Reason For Admission: 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 [...] Home Follow-up Appointments: Future Appointments Provider Department Dep Phone Center 02/28/2019 10:[address] [facility] Neurosurgery at 7th [phone] [facility] Neurosur Code Status for Facility Status: Full Code Condition on Discharge Stable Discharge Follow Up - Facility MD to follow Facility MD to follow patient. Please CC to: Primary Care Provider Kait Velazquez MD [address] [place] [address] If you have any of the following: Difficulty breathing or unusual shortness of breath Excessive bleeding, drainage at the operative site Fevers, chills, increased pain that is not relieved by pain medications Persistent nausea or vomiting Discharging Attending: Chloe Osei DO I spent more than 35 minutes in the discharge planning of this patient with over 50% of my time lnyl-nx-ceuo with the patient in evaluating and counseling, [...] -No forward bending to the floor to picker / packer objects -Keep head above the level of [...] NOT RESTART THESE MEDICATIONS UNTIL CLEARED BY [facility]. Activity: -Activity instructions: no strenuous exercise, no bending/twisting, lifting restricted to < 1/2 gallon of milk in weight. -No forward bending to the floor to picker / packer objects -Keep head above the level of [...] appt. Check in on 1st Floor in 7th e Building. Office Address: Dr Sanjay Finnegan [facility] [address], [address] [place] [address] PPD per policy Facility MD to follow/manage patient "I certify that post-hospital inpatient nursing home facility care is medically necessar y on [...] as of this encounter Progress Notes Raya Ernandez, CECILIA - 02/10/2019 11:27 AM PDTPt discharged to [facility]. Pt left at 1125. Discharged summary sent with Augustin hamilton. Medicated with Robaxin and oxycodone prio r to discharge. Sack lunch sent with pt. All belonging checked and correct per list. to ok all the belongings. Called to give report to Javier and call went to voicemail x2, left me ssage to call back regarding report on pt and that pt has left already the hospital. Await c all back from [facility] for report. 12: 02 PM Brigid Cota [...] for d/c: Discharge to swing bed at [facility] ([phone]). RNC M received message regarding call from Javier at [facility]. RNCM left voice message request ing call back to discuss discharge planning. Discharge destination: [facility] ([phone]) Transportation (mode/via): [facility] / St[facility]cher Patient Support/Family Contact (name & #): JASMIN AZEVEDO (spouse) : [phone] Potential Barriers to discharge : None Communication: [...] Cosme Kenny PA-C 650 mg at 02/10/19 06 amitriptyline (ELAVIL) tablet 10 mg 10 mg [...] PRN Marvin Coburn MD 3 mg at 02/05/192157 methocarbamol (ROBAXIN) tablet 500 mg 500 mg oral TID PRN Marvin Coburn MD 500 mg a t 02/10/19 0019 metoclopramide HCl (REGLAN) tablet 5-10 mg 5-10 mg oral Q4H PRN Marvin Coburn MD metoprolol succinate (TOPROL-XL) tablet 50 mg 50 mg oral HS Marvin Coburn MD 50 mg at 02/09/192046 mineral oil (FLEET MINERAL OIL) rectal enema 133 mL 133 mL rectal DAILY PRN Cosme Kenny PA-C 133 mL at 02/06/19 173 ondansetron ODT (ZOFRAN ODT) tablet 8 mg 8 mg oral Q8H PRN Marvin Coburn MD oxyCODONE (immediate release) (ROXICODONE) tablet 5-15 mg 5-15 mg oral Q3H PRN Marvin Coburn MD 5 mg at 02/09/19 204 polyethylene glycol (MIRALAX) packet 17 g 17 g oral DAILY Marvin Coburn MD 17 g at 02/09/19 0822 polyethylene glycol (MIRALAX) packet 34 g 34 g oral TID PRN Marvin Coburn MD 34 g a t 02/07/19 213 senna-docusate (SENOKOT S) 8.6-50 mg 2 tablet [...] 5 C8 (Wrist Ext) 5 5 C8 (Historical Guide) 5 5 T1 (Pinky Abd) 5 5 [...] Care Post-Op Abx: -Cipro 400 mg IV [id number] Consults: -Hospitalist service to assess medical issues. [...] Discharge to SNF today. Gladys Motta PA-C [facility] SURG [address] [place] [address] Chloe Del Angel DO - 02/09/2019 8:55 [...] at 02/09/20192054 Last data filed at 02/09/2019 1812 Gross per 24 hour Intake 250 ml [...] Contact - Anticipated Discharge - Sunday to [facility] Chloe Osei DO Hospital Medicine This note was written using the assistance of In Flow dictation software. I spent more than 25 [...] by RNCM. Document signed and sent to [facility] records to be scanned into EMR. Original document given to Patient. 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 [...] then voiding trial in their office at [facility] t time. No prophylactic abx indicated [...] his procedure and duratio n/distance to [facility].Pt will require medication prior to discharge. I saw and performed a physical examination of the patient and discussed the patient's manag ement with Dr Coburn's. I reviewed Dr Coburn note and agree with the documented findings and plan of care. Jamie Deng MD [facility] Department of Neurological Membership Sales ManagerSourcing Assistant Chloe roger, DO - 1 4:24 PM PDT Hospital [...] Contact - Anticipated Discharge - Sunday to [facility] Chloe Osei DO [facility] Medicine This note was written using the assistance of In Flow dictation software. 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 [...] DVT DVT prophylaxis Jamie Deng MD [facility] Department of Neurological Membership Sales ManagerSourcing Assistant [place], Marvin Fofana MD - 02/07/2019 8:07 PM PDTFormatting of [...] lumbar region Essential hypertension Coronary arteriosclerosis in [place] artery Chronic anticoagulation Chronic deep vein thrombosis [...] Post-Op Abx: -Continue Cipro 400 mg IV [id number] Consults: -Hospitalist service to assess medical issues. [...] Coburn MD Neurosurgery, PGY-4 8:12 PM 02/07/2019 [facility] - 1 7:01 PM PDT [facility] Medicine Progress Note Hospital Day# 4 [...] as possible. Awaiting to hear back fro jaclyn NSHERRERA regarding this. #Obstructive sleep apnea: Patient using CPAP at bedtime #Hypertension: Currently stable, continue Toprol-XL and lisinopril #Hypothyroidism Continue Synthroid #DVT prophylaxis Heparin for now, awaiting to hear back from NSGY regarding Eliquis Nutrition: Regular diet Code status - Full Emergency Contact - Anticipated Discharge - 1-2 days to SNF Chloe Osei DO Hospital Medicine This note was written using the assistance of In Flow dictation software. I spent more than 35 minutes in the care of this patient with over 50% of my time face-to-f chris with the patient in evaluating and counseling, evaluating labs/images and other clinical data, as well as in coordination of care.Electronically signed by Chloe Osei DO at 01/15 7:14 PM PDTFogg, June Pedroza RN - 02/07/2019 2:28 PM PDTCase Management Discharge Need s Referrals for SNF rehab have been placed to [facility], [facility] in [facility] and [facility] Transitional Care unit. All 3 faciliti es has accepted patient. Patient and his would like to go to [facility]. RNCM contacted [facility] and [facility] to advise that patient has elected to go to [facility] in [place] which is where he lives. Transportation discussed. Patient and have elected to use [facility] stretcher transpo rt. They are aware that they may be financially respondsive and have made a 50% payment to [facility]. Transport is tentatively scheduled for Sunday @ 9 am. RNCM left message for Mars @ [facility], about their ability to accept patie nt [...] patient and his . Patient lives in [facility]. They are agreeable to SNF rehab. Provided list of SNF facility in [place] and [facility] as requested from Medicare.gov. [facility] Trans[facility] care unit in [place]. Transport discussed with . Will need to determine if patient will require stretcher vs reclining w/c. Arranged by: June Bell RN ue Pagan RD - 02/06/2019 3:02 PM PDTFormatting of [...] 166* 171* BUN 13 -- -- -- CR 1.1 -- -- -- 1.2 NA [...] [facility] Services [address] [facility] [place] [id number] [phone] signed by Yue Pagan RD at 02/06/2019 3:06 PM AMIEGimauro, Cosme Mahoney PA-C - 02/06/2019 1:49 PM [...] tablet 20 mg, 20 mg, oral, BID, aSnjay Finnegan MD, 20 mg at 02/06/19 0924 [...] DAILY, Marvin Coburn MD, 10 mg at 12 2323 melatonin tablet 3 mg, 3 mg, oral, HS PRN, Marvin Coburn MD, 3 mg at 02/05/198 methocarbamol (ROBAXIN) tablet 500 mg, 500 mg, [...] History Procedure Laterality Date Knee surgery 2013, 2016 Total replacement of left shoulder joint Femur [...] lumbar region Essential hypertension Coronary arteriosclerosis in [place] artery Chronic anticoagulation Chronic deep vein thrombosis [...] Post-Op Abx: -Continue Cipro 400 mg IV [id number] Consults: -Hospitalist service to assess medical issues. [...] ready. -Consult case management. COSME KENNY PA-C [facility] Neurosurgery [address] [place] [address] Associated attestation - Jamie Deng MD - 02/06/2019 9:08 PM PDTNeurosurgery Attend ing I saw and performed a physical examination of the patient and discussed the patient's manag ement with MAKSIM Kenny. I reviewed MAKSIM Kenyn note and agree with the documented findings and yanci n of care. Jamie Deng MD [facility] Department of Neurological Membership Sales ManagerSourcing Assistant Josee [place] RN - 02/06/2019 2:00 AM [...] by Josee [place] RN at 9:48 PM PDTGladys Motta PA-C - 02/05/2019 10:51 AM PDT Neurosurgery [...] PRN Marvin Coburn MD 10 mg at 10/23/19 0527 polyethylene glycol (MIRALAX) packet 17 g [...] lumbar region Essential hypertension Coronary arteriosclerosis in [place] artery Chronic anticoagulation Chronic deep vein thrombosis [...] ready. -Consult case management. Gladys Motta PA-C [facility] SURG [address] [place] [id number] Apolonia Pickard RN - 02/04/2019 1:07 PM [...] provide Equipment Currently used at Home/DME Provider: [facility]fusion Agency: N/A Insurance/Funding: @PAYORNAME@, Assessment: Antonio Azevedo is a 74 y.o. male HD#1 with lumbar DDD, L4-S1 foraminal stenosi s, degenerative scoliosis s/p L4-5 XLIF/L5-S1 TLIF/L4-S1 PIF on 02/03/19. Spoke with patient and Jasmin [phone] at bedside. The plan is to discharge [...] in place BRIONNA outputs since OR: flank=50, wbga=540 OBJECTIVE: Last 24 hour min/max Temp: 37.7 [...] report patient's yeast areas, additional order received. 0577 Fluconazole hung. P DTdocumented in this encounter Plan of Treatment +--------+---------+ + + + | Date | Type | Specialty | Care Team | Description | +--------+---------+ + + + | 02/28/ | Office | Neurological Surgery | Cosme Kenny, | | | 2018 | Visit | | [facility] [address] | | | | | | [place], [place] | | | | | | [address] | | | | | | | [...] + + documented in this encounter Results GLUCOSE POC (02/10/2019 7:34 AM PDT) + +---------+ [...] Note | + -------+ | Service Account, Tynker In Interface - 02/06/2019 3:03 PM PDT EXAM | | DESCRIPTION:X-RAY CHEST 1 VIEW CLINICAL HISTORY:Hypoxia. COMPARISON:None. TECHNIQUE:One | | view(s). FINDINGS:The heart size is normal. Basilar atelectasis accentuated by small | | lung volume. No consolidation,pleural effusion or pneumothorax. Postop change of both | | shoulders. Mild osteopenia. IMPRESSION:Bibasilar atelectasis. Signed By: Sunday Monaco | | Emily Staff Radiologist On 02/06/2019 15:00:13 | |COMPARISON: [...] RADIOLOGY | [address] | [place] [address] | [phone] | | VOICE RECOGNITION | | | [...] Service Account, Radiant Res In Interface - 02/06/2019 2:55 PM [...] RADIOLOGY | [address] | [place] [address] | [phone] | | VOICE RECOGNITION | | | [...] [facility] | [address] | [place] [address] | | | LAB | | | | + + + + + MAGNESIUM, PLASMA (02/06/2019 1:46 PM PDT) + +-------+ + + + | Component | Value | Ref Range | Performed | Pathologist | | | | | At | Signature | + +-------+ + + + | MAGNESIUM,P | 2.1 | 1.6 - 2.6 mg/dL | [facility] | | | [facility] | | | [...] [address] | [place] [address] | | | LAB | | | [...] | | [facility] | | | [facility] | | | | | + +---------+ [...] [facility] | [address] | [place] [address] | | | LAB | | | [...] [facility] | [address] | [place] [address] | | | LAB | | | | + + + + + ROCKY DIPSTICK ONLY (02/06/2019 12:15 PM PDT) + [...] [facility] | [address] | [place] [address] | | | LAB | | | [...] [facility] | [address] | [place] [address] | | | LAB | | | | + + + + + URINE SCREEN FOR CULTURE (02/06/2019 12:15 PM PDT) + + + + + + | Component | Value | Ref Range | Performed | Pathologist | | | | | At | Signature | + + + + + + | URINE | Sent for Culture (A) | Negative | [facility] | | | SCREEN FOR | | | [facility] | | | CULTURE | | [...] | Positive, specimen sent for culture. | [facility] | | | [facility] | + + + + + + + + | Performing | Address | City/State/Zipcode | Phone Number | | Organization | | | | + + + + + | [facility] | [address] | [place] [address] | | | LAB | | | [...] | | [facility] | | | [place] | | | | | + +---------+ [...] [facility] | [address] | [place] [address] | | | LAB | | | [...] RADIOLOGY | [address] | [place] [address] | [phone] | | VOICE RECOGNITION | | | [...] RADIOLOGY | [address] | [place] [address] | [phone] | + + + + + CONFIRMATORY [...] BLOOD | [address] | [place] [address] | | | BANK | | | [...] radiculopathy, lumbar region | + + | Chronic deep vein thrombosis (DVT) of femoral vein of left lower extremity (HCC) | + + documented in this encounter Administered Medications + +--------+ + +------+------+ | Medication Order | MAR | Action | Dose | Rate | Site | | | Action | Date | | | | + +--------+ + +------+------+ | acetaminophen (TYLENOL) tablet | Given | 02/07/20 | 1,000 mg | | | | 1,000 mg 1,000 mg, oral, EVERY 6 | | 19 4:13 | | | | | HOURS, First dose on Mon | | PM PDT | | | | | 02/03/19 at 2200, Until | | | | | | | Discontinued | | | | | | + +--------+ + +------+------+ +-------+ + +---+---+ | Given | 02/07/20 | 1,000 mg | | | | | 19 9:19 | | | | | | AM PDT | | | | +-------+ + +---+---+ | Given | 02/06/20 | 1,000 mg | | | | | 19 9:55 | | | | | | PM PDT | | | | +-------+ + +---+---+ +---+---+ | | | +---+---+ + +-------+ +--------+---+---+ | acetaminophen (TYLENOL) tablet | Given | [...] | | | | | modification) on [facility] 02/06/19 at | | | | | [...] | amitriptyline (ELAVIL) tablet | Given | 02/06/20 | 75 mg | | | | 75 mg 75 mg, oral, EVERY | | 19 7:51 | | | | | EVENING, First dose on Mon | | PM PDT | | | | | 02/03/19 at 2100, Until | | | | | | | Discontinued | | | | | | + +-------+ +-------+---+---+ +-------+ +-------+---+---+ | Given | 02/05/20 | 75 mg | | | | | 19 7:53 | | | | | | PM PDT | | | | +-------+ +-------+---+---+ | Given | 02/04/20 | 75 mg | | | | | 19 [...] +---+ | | | + +---+ + +---------+ +--------+-------+---+ | ciprofloxacin (CIPRO) IV 400 | New Bag | 02/07/20 | 400 mg | 200 | | | mg in D5W (RTU) 400 mg, | | 19 8:13 | | mL/hr | | | intravenous, EVERY 12 HOURS, 6 | | AM PDT | | | | | doses, First dose on Sun02/03/19 | | | | | | | at 2000, Last dose on Sun | | | | | | | 02/06/19 at 0800 | | | | | | + +---------+ +--------+-------+---+ +---------+ +--------+---+---+ | New Bag | 02/06/20 | 400 mg | | | | | 19 7:50 | | | | | | PM PDT | | | | +---------+ +--------+---+---+ | New Bag | 02/06/20 | 400 mg | | | | | 19 8:43 | | | | | | AM PDT | | | | +---------+ +--------+---+---+ +---+---+ | | | +---+---+ + +-------+ +-------+---+---+ | dexamethasone (DECADRON) | Given | 02/06/20 | 10 mg | | | | injection 10 mg 10 mg, | | 19 11:43 | | | | | intravenous, ONCE, 1 dose, [facility] | | PM PDT | | | | | 02/06/19 at 0000 | | | | | | + +-------+ +-------+---+---+ +---+---+ | | | +---+---+ + +-------+ +------+---+---+ | dexamethasone (DECADRON) | Given | 02/08/20 | 4 mg | | | | injection 4 mg 4 mg, | | 19 4:29 | | | | | intravenous, EVERY 6 HOURS, First | | PM PDT | | | | | dose on [facility] 02/06/19 at 0600, | | | | | | | Until Discontinued | | | | | | + +-------+ +------+---+---+ +-------+ +------+---+---+ | Given | 02/08/20 | 4 mg | | | | | 19 10:57 | | | | | | AM PDT | | | | +-------+ +------+---+---+ | Given | 02/08/20 | 4 mg | | | | | 19 4:05 | | | | | | AM PDT | | | | +-------+ +------+---+---+ +---+---+ | | | +---+---+ + +-------+ +------+---+---+ | dexamethasone (DECADRON) | Given | 02/09/20 | 4 mg | | | | injection 4 mg 4 mg, | | 19 5:49 | | | | | intravenous, EVERY 12 HOURS, | | AM PDT | | | | | First dose (after last | | | | | | | modification) on 02/08/19 at | | | | | | | 0430, Until Discontinued | | | | | | + +-------+ +------+---+---+ +---+---+ | | | +---+---+ + +-------+ +------+---+---+ | dexAMETHasone (DECADRON) tablet | Given | 02/10/20 | 2 mg | | | | 2 mg 2 mg, oral, EVERY 12 | | 19 5:01 | | | | | HOURS, First dose (after last | | PM PDT | | | | | modification) on 02/08/19 at | | | | | | | 1630, Until Discontinued | | | | | | + +-------+ +------+---+---+ +-------+ +------+---+---+ | Given | 02/10/20 | 2 mg | | | | | 19 5:47 | | | | | | AM PDT | | | | +-------+ +------+---+---+ | Given | 02/09/20 | 2 mg | | | | | 19 4:57 | | | | | | PM PDT | | | | +-------+ +------+---+---+ + +---+ | | | + +---+ | dexAMETHasone (DECADRON) tablet | | | 2 mg 2 mg, oral, EVERY 24 | | | HOURS, First dose (after last | | | modification) on Sun02/10/19 at | | | 1715, Until Discontinued | | + +---+ | | | + +---+ | dextrose (GLUTOSE) 40 % gel 15 | | | g 15 g, oral, NEEDED, | | | Starting [facility] 02/06/19 at 2220, | | | Until Sun02/10/19 at 1804, PRN | | | blood [...] mL, intravenous, NEEDED, | | | Starting [facility] 02/06/19 at 2220, | | | Until Sun02/10/19 at 1804, CBG | | | less than 70 mg/dL if unable to | | | take PO | | + +---+ | | | + +---+ + +-------+ +-------+---+---------+ | enoxaparin (LOVENOX) injection | Given | 02/10/20 | 40 mg | | Abdomen | | 40 mg 40 mg, subcutaneous, EVERY | | 19 8:47 | | | | | EVENING, First dose on Sat | | PM PDT | | | | | 02/08/19 at 2100, Until | | | | | | | Discontinued | | | | | | + +-------+ +-------+---+---------+ +-------+ +-------+---+---------+ | Given | 02/09/20 | 40 mg | | Abdomen | | | 19 10:18 | | | | | | PM PDT | | | | +-------+ +-------+---+---------+ +---+---+ | | | +---+---+ + +-------+ +-------+---+---+ | famotidine (PEPCID) tablet 20 | Given | 02/11/20 | 20 mg | | | | mg 20 mg, oral, TWICE DAILY, | | 19 8:19 | | | | | First dose on [facility] 02/06/19 at | | AM PDT | [...] | | +---+---+ + +-------+ +--------+---+---+ | fentaNYL (SUBLIMAZE) injection | Given | 02/04/20 | 25 mcg | | | | 25 mcg 25 mcg, intravenous, | | 19 6:23 | | | | | RECOVERY PRN (TUA), 8 doses, | | PM PDT | | | | | Starting Sun02/03/19 at 1626, | | | | | | | Until Sun02/03/19 at 1849, | | | | | | | severe pain while in Phase I | | | | | | | Recovery | | | | | | + +-------+ +--------+---+---+ +-------+ +--------+---+---+ | Given | 02/04/20 | 25 mcg | | | | | 19 6:13 | | | | | | PM PDT | | | | +-------+ +--------+---+---+ | Given | 02/04/20 | 25 mcg | | | | | 19 5:46 | | | | | | PM PDT | | | | +-------+ +--------+---+---+ +---+---+ | | | +---+---+ + +---------+ +--------+---+---+ | fluconazole IV 400 mg IN NaCl | New Bag | 02/04/20 | 400 mg | | | | (RTU) 400 mg, intravenous, ONCE, | | 19 9:26 | | | | | 1 dose, Sun02/03/19 at 0930 | | AM PDT | | | | + +---------+ +--------+---+---+ + +---+ | | | + +---+ | glucagon (GLUCAGEN) injection 1 | | | mg 1 mg, intramuscular, | | | NEEDED, Starting [facility] 02/06/19 at | | | 2220, Until 02/10/19 at 1804, | | | CBG less than 70 mg/dL per Adult | | | Hypoglycemia Protocol | | + +---+ | | | + +---+ + +-------+ +--------+---+---------+ | heparin injection 5,000 Units | Given | 02/09/20 | 5,000 | | Abdomen | | 5,000 Units, subcutaneous, EVERY | | 19 9:57 | Units | | | | 12 HOURS, First dose on Tiara | | AM PDT | | | | | 02/06/19 at 2100, Until | | | | | | | Discontinued | | | | | | + +-------+ +--------+---+---------+ +-------+ +--------+---+---------+ | Given | 02/08/20 | 5,000 | | Abdomen | | | 19 9:12 | Units | | | | | PM PDT | | | | +-------+ +--------+---+---------+ | Given | 02/08/20 | 5,000 | | Abdomen | | | 19 7:59 | Units | | | | | AM PDT | | | | +-------+ +--------+---+---------+ +---+---+ | | | +---+---+ + +-------+ +---+---+---+ | hydrocortisone 1 % cream | Given | 02/07/20 | | | | | topical, TWICE DAILY, First dose | | 19 8:13 | | | | | on 02/05/19 at 1230, Until | | PM PDT [...] | | +---+---+ + +-------+ +--------+---+---+ | HYDROmorphone (DILAUDID) | Given | 02/04/20 | 0.5 mg | | | | injection 0.2-0.5 mg 0.2-0.5 mg, | | 19 5:57 | | | | | intravenous, RECOVERY PRN (TUA), | | PM PDT | | | | | Starting Sun02/03/19 at 1626, | | | | | | | Until Sun02/03/19 at 1849, | | | | | | | moderate pain while in Phase I | | | | | | | Recovery | | | | | | + +-------+ +--------+---+---+ +-------+ +--------+---+---+ | Given | 02/04/20 | 0.5 mg | | | | | 19 5:34 | | | | | | PM PDT | | | | +-------+ +--------+---+---+ +---+---+ | | | +---+---+ + +-------+ +--------+---+---+ | HYDROmorphone (DILAUDID) | Given | 02/07/20 | 0.6 mg | | | | injection 0.2-0.6 mg 0.2-0.6 mg, | | 19 10:17 | | | | | intravenous, EVERY 2 HOURS | | AM PDT | | | | | NEEDED, Starting 02/03/19 at | | | | | | | 1850, Until 02/08/19 at 1928, | | | | | | | severe pain | | | | | | + +-------+ +--------+---+---+ +-------+ +--------+---+---+ | Given | 02/07/20 | 0.6 mg | | | | | 19 3:06 | | | | | | AM PDT | | | | +-------+ +--------+---+---+ | Given | 02/06/20 | 0.6 mg | | | | | 19 9:54 | | | | | | PM [...] + +---+---+ | | | +---+---+ + +---------+ + + +---+ | lactated ringers IV 10 mL/hr, | New Bag | 02/04/20 | 10 mL/hr | 10 mL/hr | | | intravenous, PROCEDURE | | 19 5:36 | | | | | CONTINUOUS, Starting 02/03/19 | | PM PDT | | | | | at 0715, Until Sun02/03/19 at | | | | | | | 1849 | | | | | | + +---------+ + + +---+ +---------+ +---+---+---+ | New Bag | 02/04/20 | | | | | | 19 3:20 | | | | | | PM PDT | | | | +---------+ +---+---+---+ | New Bag | 02/04/20 | | | | | | 19 12:45 | | | | | | PM PDT | | | | +---------+ +---+---+---+ +---+---+ | | | +---+---+ + [...] +---+---+ + +-------+ +--------+---+ + | lidocaine (XYLOCAINE) 10 mg/mL | Given | 02/04/20 | 0.5 mg | | Left Arm | | (1 %) injection subcutaneous, | | 19 8:40 | | | | | PREPROCEDURE PRN, Starting Mon | | AM PDT | | | | | 02/03/19 at 0713, Until Mon | | | | | | | 02/03/19 at 1849, IV start | | | | | | + [...] | | +---+---+ + +-------+ +-------+---+---+ | pregabalin (LYRICA) capsule 75 | Given | 02/04/20 | 75 mg | | | | mg 75 mg, oral, PREPROCEDURE | | 19 8:05 | | | | | ONCE, 1 dose, Starting Mon | | AM PDT | | | | | 02/03/19 at 0713, Until Mon | | | | | | | 02/03/19 at 0805 | | | | | | + [...] +---------+---+---+ +---+---+ | | | +---+---+ + +---------+ + + +---+ | sodium chloride 0.9 % (NS) IV | New Bag | 02/04/20 | 75 mL/hr | 75 mL/hr | | | infusion 75 mL/hr, intravenous, | | 19 8:05 | | | | | CONTINUOUS, Starting Sun02/03/19 | | PM PDT | | | | | at 1900, Until Sun02/03/19 at | | | | | | | 2359 | | | | | | + +---------+ + + +---+ +---+---+ | | | +---+---+ + [...] +--------+---+---+ +---+---+ | | | +---+---+ + +---------+ + +-------+---+ | vancomycin (VANCOCIN) IV 2,000 | New Bag | 02/04/20 | 2,000 mg | 260 | | | mg 2,000 mg, intravenous, | | 19 10:36 | | mL/hr | | | PREPROCEDURE ONCE, 1 dose, | | AM PDT | | | | | Starting 02/03/19 at 0713, | | | | | | | Until 02/03/19 at 1336 | | | | | | + +---------+ + +-------+---+ +---+---+ | | | +---+---+ + +---------+ + +---+---+ | vancomycin (VANCOCIN) IV 2,000 | New Bag | 02/05/20 | 2,000 mg | | | | mg 2,000 mg (rounded from | | 19 4:48 | | | | | 1,885.5 mg = 15 mg/kg | | AM PDT | | | | | 125.7 kg), intravenous, ONCE, 1 | | | | | | | dose, Maegan 02/04/19 at 0400 | | | | | | + +---------+ + +---+---+ +---+---+ | | | +---+---+ documented in this encounter
--- OUTSIDE RECORDS SUMMARY | ~2019-02-23 | XMS | Encounter Summary ---
Demographics + + + | Address | [address] | | | [place] [address] | + + + | Home Phone | | + + + | Preferred Language | Unknown | + + + | Marital Status | | + + + | Adventism Affiliation | NRP | + + + [...] Team Providers + +------+ + | Care Service Operator Name | Role | Phone | [...] | | | | [address] | [place] [address] | | | | | [place], [place] | [phone] | | | | | [address] | | | | | | [phone] | | | +--------+ + + + [...] Leticia | | | | | | [place], [place] | | | | | | [address] | | | | | | | [...]
--- OUTSIDE RECORDS SUMMARY | ~2019-02-23 | XMS | Encounter Summary ---
Demographics + + + | Address | [address] | | | [place] [address] | + + + | Home Phone | | + + + | Preferred Language | Unknown | + + + | Marital Status | | + + + | Zoroastrianism Affiliation | Unknown | + + + | Race | Unknown | + + + | Ethnic Group | Unknown | + + + Author + + + | Author | [facility] | | | and [place] | + + + | Organization | [facility] | | | [...] Team Providers + +------+ + | Care Licensed Practical Nurse Clinic Nurse Name | Role | Phone | + [...] S[facility] | | | | [address] | [address] [place] [address] | | | | | [place] | [address] | | | | | [address] | | | | | | [phone] | | | +--------+---------+ + + + [...] neurotomy, or rhizomotomy. How to say it [id number] No Why radiofrequency denervation is done This [...] up to 4 months Date Last Reviewed: 09/15/201519990969-7123 [employer]. [address] [place] [address]. All righ ts reserved. This information is [...] ST. | [address] | [place], [place] | [phone] | | [facility] | | [address] | | | - LABORATORY | | [...]
--- OUTSIDE RECORDS SUMMARY | ~2019-02-23 | XMS | Clinical Summary ---
Demographics + + + | Address | [address] | | | [place] [address] | + + + | Home Phone | | + + + | Preferred Language | Unknown | + + + | Marital Status | | + + + | Uatsdin Affiliation | Unknown | + + + | Race | Unknown | + + + | Ethnic Group | Unknown | + + + Author + + + | Author | [facility] | | | and [place] | + + + | Organization | [facility] | | | and [...] Team Providers + +------+ + | Care Rural Service Engineer Name | Role | Phone | + +------+ + | Kait Velazquez MD | PCP | | + +------+ + Allergies + + + + + + | Active Allergy | Reactions | Severity | Noted | Comments | | | | | Date | | + + + + + + | Food | Shortness Of Breath | High | 06/27/20 | Seafood, shellfish | | | | [...] mouth once daily | tablet | | 05/05 | | e | | | | | | 19 | | | + + + +---------+------+------+-------+ | Desoximetasone | Apply 1 Application | | 0 | | 10/1 | Disco | | 0.05 % GEL | topically 2 times | | | | 11/02 | ntinu | | | daily. | | | | 19 | ed | | | | | | | | (Tiffany | | | | | | | | ent | | | | | | | | Not | | | | | | | | Takin | | | | | | | | g) | + + + +---------+------+------+-------+ | cetirizine | Take 10 mg by mouth | | 0 | | 01/14 | Disco | | (ZYRTEC) 10 mg | Daily. | | | | 11/02 | ntinu | | tablet | | | | | 19 | ed | | | | | | | | (Tiffany | | | | | | | | ent | | | | | | | | Not | | | | | | | | Takin | | | | | | | | g) | + + + +---------+------+------+-------+ | ezetimibe (ZETIA) | Take 10 mg by mouth | | 0 | | 01/15 | Disco | | 10 mg tablet | Daily. | | | | 05/05 | ntinu | | | | | | | 19 | ed | | | | | | | | (Reor | | | | | | | | gerry) | + + + +---------+------+------+-------+ | ezetimibe (ZETIA) | take 1 tablet by | | 0 | 10/14 | 01/14 | Disco | | 10 mg tablet | mouth once daily | | | 11/02 | 11/02 | ntinu | | | | | | 19 | 19 | ed | | | | | | | | (Dupl | | | | | | | | icate | | | | | | | | | | | | | | | | Entry | | | | | | | | ) | + + + +---------+------+------+-------+ | diphenhydrAMINE | Take 25 mg by mouth | | 0 | | 10/ | Disco | | (BENADRYL) 25 mg | Daily. Take two | | | | 11/02 | ntinu | | tablet | tablets by mouth | | | | 19 | ed | | | nightly | | | | | (Side | | | | | | | | | | | | | | | | effec | | | | | | | | ts) | + + + +---------+------+------+-------+ Active Problems [...] + + | Coronary artery disease involving [place] heart without angina | 01/02/2018 | | [...] Bing Terrazas, | Medication Refill | | 2018 | | | MD | | +--------+ + + + + | 01/30/ | Office | Cardiology | Mercedes Berrios | Coronary artery | | 2019 | Visit | | ADDIS Noe | disease involving | | | | | | [place] coronary | | | | | | artery of [place] | | | | | | heart [...] fibrillation | | | | | | ([facility]); Essential | | | | | | hypertension; | | | | | | Dyslipidemia; Statin | | | | | | intolerance; | | | | | | Recurrent deep vein | | | | | | thrombosis (DVT) | | | | | | ([facility]); Chronic | | | | | | [...] insulin | | | | | | ([facility]); Pre-operative | | | | | | [...] involving | | | | | | [place] coronary | | | | | | artery of [place] | | | | | | heart [...] (DVT) | | | | | | (HCC); Chronic | | | | | | [...] Shemar Gillis, | Lumbar radiculopathy | | 2018 | Visit | and Rehabilitation | PA-C | (Primary Dx) | +--------+ + + + + from [...] | Blood Pressure | 116/56 | 01/30/2019 10:46 AM | | | | | PDT | | + + + + + | Pulse | 85 | 01/30/2019 10:46 AM | | | | | PDT | | + + + + + | Temperature | 37.3 C (99.1 F) | 10/30/2018 2:45 PM | | | | | PDT | | + + + + + | Respiratory Rate | 18 | 10/30/2018 2:45 PM | | | | | PDT | | + + + + + | Oxygen Saturation | 95% | 01/30/2019 10:46 AM | | | | | PDT | | + + + + + | Inhaled Oxygen | - | - | | | Concentration | | | | + + + + + | Weight | 127.6 kg (281 lb 3.2 | 01/30/2019 10:46 AM | | | | oz) | PDT | | + + + + + | Height | 175.3 cm (5' 9") | 01/30/2019 10:46 AM | | | | | PDT | | + + + + + | Body Mass Index | 41.53 | 01/30/2019 10:46 AM | | | | | PDT | | + + + + + Plan of Treatment [...] this | | | e | 12:41 PM | disease involving | procedure are in the | | | | PDT | [place] coronary | results section. | | | | | artery of [place] | | | | | | heart without angina | | | | | | pectoris | | | | | | Paroxysmal atrial | | | | | | fibrillation (HCC) | | | | | | Essential | | | | | | hypertension | | + +--------+ + + + from Last 3 Months Results ECG 12 lead (12/26/2018 12:41 PM PDT) + + + + + [...] INTERPRETAT | Please refer to | | RENAMT MUSE | | | ION TEXT | Providers office visit | | | | | | note for Providers | | | | | | Interpretation.Confirmed | | | | | | by [facility], | | | | | | [facility] ([id number]), | | | | | | graphic editor KARLOS SLAUGHTER | | | | | [...] +--------+ +---------+--------+ | MEDICARE | MEDICA | [id number] | | [phone] | | Medica | | | RE | | 011-Pr | 5 | | re | | | PART A | | esent | | | | | | AND B | | | | | | + +--------+ +--------+ +---------+--------+ | MEDICARE | MEDICA | [id number] | | [phone] | | Medica | | | RE | | 011-Pr | 5 | | re | | | PART A | | esent | | | | | | AND B | | | | | | + +--------+ +--------+ +---------+--------+ | [employer] | [place] | [id number] | [phone] | | Indemn | | | OF | | 018-Pr | 0 | | ity | | | [employer] | | esent | | | | | | MDCR | | | | | | | | SUPPL | | | | | | + +--------+ +--------+ +---------+--------+ | [employer] | [place] | [id number] | | [phone] | | Indemn | | | OF | | 018-Pr | 0 | | ity | | | [employer] | | esent | | | | [...] Person | Self [birth year] | [address] | | . | al/Fam | | 1945 | [phone] | [place] | | | fernanda | | | 0 (Home) | [address] | | | | | | [phone] | | | | | | | 5 (Work) | | + +--------+ +--------+ + + | Antonio Azevedo | Person | Self | [birth year] | [address] | | Jr. | al/Fam | | 1945 | [phone] | [place] | | | [place]anda | | | 0 (Home) | [address] | | | | | | [phone] | | | | | | | 5 (Work) | | + +--------+ +--------+ + + Advance Directives + + + + + | Type | Date Recorded | Patient | Explanation | | | | Hasher Operator | | + + + + + | Power of | | | | | Farmworker Rice | | | | + + + + + | Advance | 10/11/2017 12:11 | | | | Directive | PM | | | + + + + +
--- OUTSIDE RECORDS SUMMARY | ~2019-02-23 | XMS | Encounter Summary ---
Demographics + + + | Address | [address] | | | [place] [address] | + + + | Home Phone | | + + + | Preferred Language | Unknown | + + + | Marital Status | | + + + | Quaker Affiliation | Unknown | + + + | Race | Unknown | + + + | Ethnic Group | Unknown | + + + Author + + + | Author | [facility] | | | and [place] | + + + | Organization | [facility] | | [...] Team Providers + +------+ + | Care Sales Engineer [employer] Name | Role | Phone | + +------+ + | Kait Velazquez MD | PCP | | + +------+ + Reason for Visit + + + | Reason | Comments | + + + | Follow-up, Office | Echo , pre-op CV risk assessment | | Visit | | + + + Encounter Details +--------+---------+ + + + | Date | Type | Department | Care Team | Description | +--------+---------+ + + + | 01/30/ | Office | [facility] | Mercedes Berrios | Coronary artery | | 2019 | Visit | [facility] | [address] | disease involving | | | | [address] | [address] | yuhaaviatam coronary | | | | [address] | [place] [address] | artery of yuhaaviatam | | | | [place] | [phone] | heart without angina | | | | [address] | | pectoris (Primary | | | | [phone] | | Dx); Status post | | [...] | | | | deficiency anemia | +--------+---------+ + + + Social History [...] in this encounter Patient Instructions Patient Instructions Mercedes Berrios FNP - 01/30/2019 11:00 AM PDTYour Echo was very normal, and I consider you a low cardiac risk of surgery Your labs overall looked good, but LDL over 100 , and sugars higher, so work and on diet an d exercise Stop Benadryl, as to much intermediate anticholinergic side effects, try saline sinus rinse tw ice a day mixed with Distilled water, and then use Nasocort or flonase to help with nasal c ongestion, use breathe rite strips, and see ENT about nasal deviation I made no changes to medications See Dr. Terrazas next, but see me if needed documented in this encounter Progress Notes Mercedes Berrios FNP - 01/30/2019 11:00 AM PDTFormatting of this note might be differe nt from the original. Date of visit: 01/31/2019 Primary Care Physician: Kait Velazquez MD CHIEF COMPLAINT: Chief Complaint Patient presents with Follow-up, Office Visit Echo , pre-op CV risk assessment HISTORY OF PRESENT ILLNESS: Mr. Catracho Azevedo is a 74 year old man who is here today to for preoperative cardiac r isk evaluation for planned back surgery In [place] , and to follow up on his Echo and lab results . He is accompanied today by his , Lucinda, who contributed to history. He is a patient of and last seen by him 01/2018 . Today, I reviewed all previous documentation available to me in electronic medical susi rd and from external sources. 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 I saw him last on December 26, 2018 for preoperative cardiac risk assessment, and ordere d him a CMP and lipid panel, as well as a CBC, and also ordered him an Echo, and made no brian nges to medications. He reports today that he continues to feel well, and denies any chest pain, but still has some mild dyspnea with exertion which he attributes to being deconditioned and overweight. He reports rare palpitations, but denies any dizziness or syncope, and has chronic mild sw elling to his left leg secondary to venous insufficiency as saphenous vein removed after tra delmer of left femur fracture. He reports he will be getting his back surgery performed by Dr. Finnegan, who he previously sa w in [place], but is now at [facility] in [facility], which is affiliate d with [facility]. He reports he will be getting wedges placed for collapsed vertebrae, and also getting a bone spur removed. Dr. Finnegan's note in November documents a plan for a bone growth st imulator postoperatively as well as fusions and other methods to help stabilize his discs, a nd surgery now scheduled for February 03, 2019. He reports he has recently seen Dr. Myers, and I previously reviewed his 08/2018 clinic note, and he has now has a new CPAP machine, and his sleep apnea is now well controlled, an d he continues to use it nightly. He continues to struggle with his weight, as he is unable to exercise due to ongoing back a nd joint pain, and he hopes this will improve after his surgery. His weight is up 15 pounds since last seen in January when weighed 266 lbs. He quit smoking in 1990 with a [id number] history but denies any ongoing pulmonary diseas e, and denies any use of alcohol, or recreational or illicit drugs, drinks 2 servings of cof fee daily. He brought his medications to the clinic today, and personally reviewed by me REVIEW OF SYSTEMS: Negative except for pertinent items noted in HPI. Constitutional: Denies fatigue or unexplained weight loss. Appetite is good. Weight up 15 lbs from 01/2019 when weighed 266. Denies night sweats fevers or chills HENT: Denies nosebleeds. Chronic tinnitus, mild hearing loss. Denies dysphagia Eyes: Denies visual disturbance or double vision. Respiratory/Sleep:: Sleep apnea on nightly CPAP, sees Dr. Myers denies cough and shortness of breath. Denies hemoptysis or excessive sputum production. Denies orthopnea, PND. Cardiovascular: Chronic venous insufficiency to left leg secondary to left femur fracture w ith removal of left saphenous vein denies chest pain, palpitations. Denies history of rheuma tic fever. Denies claudication . Gastrointestinal: Denies GERD. Denies nausea, vomiting, abdominal pain and blood in stool . Genitourinary: Denies hematuria. CKD stage III, GFR in 60's in August 2018 Musculoskeletal: Degenerative joint and disc disease. History of knee surgery, shoulder reyes rgery, bilateral knee replacement in 2013 and 16, nerve ablation for back pain in 2018. Pre vious left femoral fracture. Denies myalgias. Skin: Denies color change. Denies rash or lesions. Hx skin cancer left cheek and forehe ad, squamous cell, chronic dry skin Neurological: Chronic pedal neuropathy. Denies history of stroke/Transient ischemic attack .Denies history of seizures. Denies dizziness, syncope. Hematological/Oncology . Recurrent DVT to both lower extremity x2. bruises easily. Denies bleeding . History of skin cancer only Endocrine: Type 2 diabetes Diet controlled , hypothyroidism. Vit D deficiency. Denies exc essive thirst or hunger. Psychiatric/Behavioral : Situational depression with chronic pain. Denies any history of a nxiety or other psychiatric illness. Vaccines: Current on 2018 flu vaccine. Current on post 65 pneumonia vaccine, x2 , shingle s Habits/Social : history of smoking, quit 1990, smoked 1 pack/day x 22 years.. Denies EtOH use. Drinks 2 servings of caffeine daily . Denies recreational or illicit drug use. Lives in [place] . to Lucinda. Since June 2018 Outpatient Medications Prior to Visit Medication Sig Dispense Refill amitriptyline (ELAVIL) 50 mg tablet Take 50 mg by mouth nightly. aspirin 81 MG tablet Take 81 mg by mouth Daily. cetirizine (ZYRTEC) 10 mg tablet Take 10 mg by mouth Daily. Desoximetasone 0.05 % GEL Apply 1 Application topically 2 times daily. diphenhydrAMINE (BENADRYL) 25 mg tablet Take 25 mg by mouth Daily. Take two tablets by mouth nightly ELIQUIS 5 MG tablet Take 1 tablet by mouth 2 times daily. 4 ezetimibe (ZETIA) 10 mg tablet Take 10 mg by mouth Daily. ezetimibe (ZETIA) 10 mg tablet take 1 tablet by mouth once daily levothyroxine (SYNTHROID) 50 mcg tablet Take 50 mcg by mouth Daily. lisinopril (PRINIVIL, ZESTRIL) 10 mg tablet Take 10 mg by mouth Daily. metoprolol succinate (TOPROL-XL) 50 mg 24 hr tablet Take 50 mg by mouth nightly. nitroglycerin (NITROSTAT) 0.[address] 0.4 mg under the tongue as needed. oxyCODONE (ROXICODONE) 5 mg tablet Take 5 mg by mouth every 12 hours as needed for Pain . No facility-administered medications prior to visit. PHYSICAL EXAM: Wt Readings from Last 3 Encounters: 01/30/19 127.6 kg (281 lb 3.2 oz) 12/26/18 125.5 kg (276 lb 9.6 oz) 12/25/18 124 kg (273 lb 5.9 oz) Temp Readings from Last 3 Encounters: 10/30/18 37.3 C (99.1 F) (Temporal) 05/20/18 37 C (98.6 F) (Temporal) 10/11/17 37.1 C (98.7 F) BP Readings from Last 3 Encounters: 01/30/19 116/56 12/26/18 130/62 12/25/18 124/60 Pulse Readings from Last 3 Encounters: 01/30/19 85 12/26/18 69 12/25/18 78 Vital signs:02/06/2019 Wt: 266 Lbs. BP: 126/76 . HR. 71 GENERAL: Well developed, well nourished, in no distress. Appears approximately stated age . HEENT: Normocephalic, atraumatic. EYES: PERRL, EOM normal. MOUTH: Oral mucosae moist, dentition adequate, no lesions noted NECK: No JVD, lymphadenopathy, thyromegaly, bruits. Carotid pulses are 2+ bilaterally LUNGS/CHEST: Clear bilaterally, with no rales, rhonchi or wheezing noted, respirations unl abored HEART: Nondisplaced PMI, regular rate and rhythm, S1, S2 normal. 2/6 Murmur LLB towards a pex. No rubs or gallops noted. ABDOMEN: Soft, nontender, no organomegaly, masses or bruits. Bowel sounds are normal in a ll 4 quadrants. The abdominal aortic pulsation is not palpable. EXTREMITIES: Mild swelling to left lower leg, well-healed scar to left leg. No edema to ri ght leg, minor varicosities to both lower legs. . Radial pulses 2+ bilaterally. Femoral pu lses are 2+ bilaterally without bruits. DP and PT pulses are 2+ bilaterally. No clubbing. SKIN: Warm and dry, capillary refill is normal, no lesions. NEUROLOGIC: Awake, alert and oriented x 3. No focal motor or sensory deficits. PSYCHIATRIC: Appropriate, affect appears normal DATA: Blood tests: Lab Results Component Value Date WBC 7.3 10/30/2018 RBC 5.09 10/30/2018 HGB 16.1 10/30/2018 HCT 48.2 10/30/2018 PLT 171 10/30/2018 No results found for: NA, K, CL, CO2, ANIONGAP, GLUF, BUN, CREATININE, BCR, EGFR No results found for: CHOL, TRIG, LDL, LDL, GLUF No results found for: BNP, TSH, CRP No results found for: TOTEPI CARDIAC PROCEDURES/IMAGING Last angiogram:10/27/2016:[facility]. Left main with no significant disease. LAD h as 80% mid segment stenosis. Left circumflex has nonsignificant disease. RCA moderate size with no significant disease. PCI with 3.0 x [address] CA scorin07/21/2016: Total 517 mostly in the LAD, minimal in LCX. VASCULAR TESTING AND PROCEDURES NON CARDIAC VASCULAR TESTING AND PROCEDURES Sleep study: 04/20/2013: Severe sleep apnea: AHI 79.7, RDI 96.3 SPO2 daryn 64%, 91.1 minutes <89%. CPAP titration: 05/20/2013. CPAP 9-11, AHI 21.1 ECHO Echo: 01/07/2019: ([facility]). EF 60-70%, LV normal in size with mild LVH. No regional wall talia on abnormalities. Normal diastolic pattern for age. Be normal in size and function. Virginie l size left atria, normal size right atria. Aortic valve leaflet and mildly thickened, no e vidence of aortic regurgitation or stenosis. Mitral valve normal, trace MR. Tricuspid valv e normal with trace TR. N pulmonary hypertension, RVSP 28 mmHg. Pulmonic valve not well vis ualized. DC normal, normal respiratory change consistent with normal CVP. Sinus of [place]als[place] a through a sending aorta appears normal counter. No pericardial or pleural effusion. EKG/EVENT MONITOR EK10/26/2016: Normal sinus rhythm, low voltage QRS leads III, aVL, aVF, previous inferior MD. Rate 90 bpm, SD 126 ms, QRS 86 ms, QTC 420 ms, tracing personally reviewed by me EK02/06/2018: Normal sinus rhythm, low voltage QRS to limb leads, V1. Rate 70 bpm, SD 1 34 ms, QRS 78 ms, QTC 412 ms, old inferior MD, tracing personally reviewed by me EK12/26/2018: Normal sinus rhythm, persistent low voltage QRS to inferior leads consisten t with previous inferior MD, low voltage QRS to limb leads V1, V2. Rate 69 bpm, SD 140 ms, QRS 82 ms, QTC 430 ms, tracing personally reviewed by me, and similar morphology to EKG perf ormed in January 2018 LABS Labs: 06/22/2017: CBC: WBC 7, hemoglobin 15.4, platelets 164. CMP: Sodium 143, potassium 4.9 , chloride 106, BUN 14, creatinine 1.12, GFR 65, AST 21, A LT 26, alk phos 66. Labs: 10/26/2016: CBC: WBC 7.2, hemoglobin 15.5, platelets 152. Sodium 140, potassium 4.2, c hloride 107, bicarbonate 25, BUN 19, creatinine 1.4, GFR 50. Calcium 9.2, AST 17, AST 22, al k phos 68, magnesium 1.9. INR 2.0 Labs: 08/19/2018 BMP sodium 139, potassium 4.2, chloride 104, glucose 112, BUN 16, creatinine 1.18, GFR 61 Labs: 01/20/2019: Lipids: (Zetia 10 mg):Cholesterol 180, triglycerides 158, HDL 34, LDL 114. CMP: Sodium 138, potassium 4.4, chloride 104, glucose 140, BUN 17, creatinine 1.04, AST 17 , ALT 19, alk phos 78, total bili 0.4, GFR 70, albumin 3.8. CBC: WBC 6.6, RBC 4.77 Hgb 15, hematocrit 45.4, platelets 176 ASSESSMENT & PLAN: He was here today for preoperative cardiac risk evaluation for planned back surgery at [facility] in [place], [place] by Dr. Finnegan He has problems as detailed below. His labs performed on January 20 are detailed above, and show lipids borderline controlle d by Juwan with mildly elevated triglycerides of 158, and LDL of 114, his CMP was normal exc ept for elevated glucose of 140, and his CBC was also normal, and I also ordered a TSH which was not performed. His echo performed on January 07, 2019 at [facility] was a normal echo with an EF of 60-65%, RV normal in size and function, mild tricuspid regurgitation with no pulmonary h ypertension, and no evidence of pericardial effusion. I reviewed the results of his labs and echo in detail with him, and also gave him copies to take with him for his surgery. I discussed with him and his that I considered him a low cardiac risk for back surgery . I did discuss with him my concern for his weight gain, and elevation in his blood glucose , and told him to work intensively to lose weight, and keep his blood sugars well controlled after surgery He is to see Dr. Padron at the end of January, but may be having his back surgery 01/15, so this may need to be rescheduled, and primary cardiology visit can be delayed give n his normal testing. 1. Coronary artery disease involving yuhaaviatam coronary artery of yuhaaviatam heart without angina pectoris 2. Status post insertion of drug-eluting stent into left anterior descending (LAD) artery 3. Paroxysmal atrial fibrillation (HCC) 4. Essential hypertension 5. Dyslipidemia 6. Statin intolerance 7. Recurrent deep vein thrombosis (DVT) ([facility]) 8. Chronic anticoagulation 9. Hypothyroidism, unspecified type 10. Type 2 diabetes mellitus with stage 3 chronic kidney disease, without long-term current use of insulin ([facility]) 11. Pre-operative cardiovascular examination 12. Screening for iron deficiency anemia No orders of the defined types were placed in this encounter. The following portions of the patient's history were personally reviewed by me and updated as appropriate: EKG tracings, other specialty provider and PCP notes,any Hospital admission and discharge summaries, any ER records , current and previous cardiac testing and procedure reports and d amnish, medication bottles brought to visit today Allergies, current medications.labs Family history, past medical history, past social history, past surgical history. Problem list. Shreyas CHAMPAGNE [facility] 01/31/2019 docum ented in this encounter Plan of Treatment Not on filedocumented as of this encounter Visit Diagnoses + + | Diagnosis | + + | Coronary artery disease involving yuhaaviatam coronary artery of yuhaaviatam heart without | | angina pectoris - Primary | + + | Status post insertion of drug-eluting stent into left anterior descending (LAD) artery | + + | Paroxysmal atrial fibrillation (HCC) Atrial fibrillation | + + | Essential hypertension Unspecified essential hypertension | + + | Dyslipidemia Other and unspecified hyperlipidemia | + + | Statin intolerance Other drug allergy | + + | Recurrent deep vein thrombosis (DVT) ([facility]) | + + | Chronic anticoagulation Encounter for long-term (current) use of anticoagulants | + + | Hypothyroidism, unspecified type | + + | Type 2 diabetes mellitus with stage 3 chronic kidney disease, without long-term | | current use of insulin ([facility]) | + + | Pre-operative cardiovascular examination | + + | Screening for iron deficiency anemia | + + documented in this encounter
--- OUTSIDE RECORDS SUMMARY | ~2019-02-23 | XMS | Encounter Summary ---
Demographics + + + | Address | [address] | | | [place] [address] | + + + | Home Phone | | + + + | Preferred Language | Unknown | + + + | Marital Status | | + + + | Adventist Affiliation | Unknown | + + + | Race | Unknown | + + + | Ethnic Group | Unknown | + + + Author + + + | Author | [facility] | | | and [place] | + + + | Organization | [facility] | | [...] Team Providers + +------+ + | Care Division Order Technician Name | Role | Phone | + +------+ + | Kait Velazquez MD | PCP | | + +------+ + Reason for Referral Diagnostic/Screening (Routine) + +--------+ + + + + | Status | Reason | Specialty | Diagnoses / | Referred By | Referred To | | | | | Procedures | Contact | Contact | + +--------+ + + + + | Authorizatio | | Radiology | Diagnoses | Agustina | [facility] | | n not | | | Coronary | Mercedes Noe, | [address] | | Required | | | artery | WAITER/WAITRESS TAKE OUT [address] | | | | | disease | [address] | [place], [place] | | | | | involving | [place] | [address] | | | | | douglas | [place], [place] | Phone: | | | | | coronary | [address] | [phone] | | | | | artery of | Phone: | Fax: | | | | | douglas heart | [phone] | [phone] | | | | | without | Fax: | | | | | | angina | [phone] | | | | | | pectoris | | | | | | | Status post | | | | | | | insertion of | | | | | | | | | | | | | | drug-eluting | | | | | | | stent into | | | | | | | left | | | | | | | anterior | | | | | | | descending | | | | | | | (LAD) artery | | | | | | | Paroxysmal | | | | | | | atrial | | | | | | | fibrillation | | | | | | | (HCC) | | | | | | | Chronic | | | | | | | anticoagulat | | | | | | | ion | | | | | | | Pre-operativ | | | | | | | e | | | | | | | cardiovascul | | | | | | | ar | | | | | | | examination | | | | | | | Murmur | | | | | | | Procedures | | | | | | | ECHO | | | | | | | Complete | | | + +--------+ + + + + Reason for Visit + + + | Reason | Comments | + + + | Follow-up | | + + + Encounter Details +--------+---------+ + + + | Date | Type | Department | Care Team | Description | +--------+---------+ + + + | 12/26/ | Office | [facility] | Mercedes Berrios | Coronary artery | | 2019 | Visit | CARDIOLOGY [place] | [address] | disease involving | | | | [address] | [address] | douglas coronary | | | | [address] | [place] [address] | artery of douglas | | | | [place] | [phone] | heart without angina | | | | [address] | | pectoris (Primary | | | | [phone] | | Dx); Status post | | [...] (DVT) | | | | | | ([facility]); Chronic | | | | | | [...] insulin | | | | | | ([facility]); Pre-operative | | | | | | cardiovascular | | | | | | examination; | | | | | | Screening for iron | | | | | | deficiency anemia; | | | | | | Murmur | +--------+---------+ + + + Social History [...] + + + | Blood Pressure | 130/62 | 12/26/2018 12:31 PM | | | | | PDT | | + + + + + | Pulse | 69 | 12/26/2018 12:31 PM | | | | | PDT | | + + + + + | Temperature | - | - | | + + + + + | Respiratory Rate | - | - | | + + + + + | Oxygen Saturation | 95% | 12/26/2018 12:31 PM | | | | | PDT | | + + + + + | Inhaled Oxygen | - | - | | | Concentration | | | | + + + + + | Weight | 125.5 kg (276 lb 9.6 | 12/26/2018 12:31 PM | | | | oz) | PDT | | + + + + + | Height | 175.3 cm (5' 9") | 12/26/2018 12:31 PM | | | | | PDT | | + + + + + | Body Mass Index | 40.85 | 12/26/2018 12:31 PM | | | | | PDT | | + + + + + documented in this encounter Patient Instructions Patient Instructions Mercedes Berrios FNP - 12/26/2018 12:30 PM PDTI have ordered you fasting labs to be done at [facility], in next week . I also ordered you an Echo to be done at [facility] I made no changes to medications See me back in 4 weeks documented in this encounter Progress Notes Mercedes Berrios FNP - 12/26/2018 12:30 PM PDTFormatting of this note might be differe nt from the original. Date of visit: 12/26/2018 Primary Care Physician: Kait Velazquez MD CHIEF COMPLAINT: Chief Complaint Patient presents with Follow-up HISTORY OF PRESENT ILLNESS: Mr. Catracho Azevedo is a 73 year old man who is here today to for preoperative cardiac risk evaluation for planned back surgery In [place] . He is accompanied today by his , Lucinda, who contributed to history. He is a patient of and last seen by him 01/2018 . Today, I reviewed all previous documentation available to me in electronic medical susi rd and from external sources. He has a history of artery disease with stenting to his LAD in , paroxysmal atrial fibrillation, hypertension, chronic venous insufficiency, type 2 diabetes, hyperlipidemia wi th statin intolerance, hypothyroidism, chronic kidney disease stage III though improved GFR of 60 lately, sleep apnea with nightly CPAP use, history of recurrent DVT and chronic back pain due to degenerative lumbar spinal disease His current and previous testing and procedures are detailed below. He reports today that he has felt well, and denies any chest pain, does have some mild dy spnea with exertion which he attributes to being deconditioned and overweight. He reports r are palpitations, but denies any dizziness or syncope, and has chronic mild swelling to his left leg secondary to venous insufficiency as saphenous vein removed after trauma of left fe mur fracture. He reports he will be getting his back surgery performed by Dr. Finnegan, he is to be in [place], and [facility], which is affiliated with [facility]. He reports he will be getting wedges placed for collapsed vertebrae, and also getting a bone spur removed. Dr. Finnegan's note in November documents a plan for a bone growth stimulator posto peratively as well as fusions and other methods to help stabilize his discs, He reports he has recently seen Dr. Myers, and I reviewed his 08/2018 clinic note, and rakan martin has now has a new CPAP machine, and his sleep apnea is now well controlled, and he continu es to use it nightly. He continues to struggle with his weight, as he is unable to exercise due to ongoing back a nd joint pain, and he hopes this will improve after his surgery. His weight is up 10 pounds since last seen in January. He quit smoking in 1990 with a 75-wckl-sene history but denies any ongoing pulmonary diseas e, he denies any use of alcohol, or recreational or illicit drugs, drinks 2 servings of coff ee daily REVIEW OF SYSTEMS: Negative except for pertinent items noted in HPI. Constitutional: Denies fatigue or unexplained weight loss. Appetite is good. Weight up 10 labs form 01/2019 when weighed 266. Denies night sweats [...] 17, nerve ablation for back pain in 2019. Pre vious left femoral fracture. Denies myalgias. [...] recreational or illicit drug use. Lives in [place] . to Lucinda. Outpatient Medications Prior to Visit Medication Sig Dispense Refill amitriptyline (ELAVIL) 25 mg tablet Take 50 mg by mouth Daily. 0 amitriptyline (ELAVIL) 50 mg tablet Take 50 mg by mouth nightly. aspirin 81 MG tablet Take 81 mg by mouth Daily. cetirizine (ZYRTEC) 10 mg tablet Take 10 mg by mouth Daily. Desoximetasone 0.05 % GEL Apply 1 Application topically 2 times daily. diclofenac (VOLTAREN) 1% GEL Apply nickel sized amount to painful area and rub into ski n until absorbed. Wash hands after. 2 Tube 3 ELIQUIS 5 MG tablet Take 1 tablet [...] tablet Take 50 mg by mouth nightly. metroNIDAZOLE (METROCREAM) 0.75 % cream Apply 45 g topically as needed. 3 nitroglycerin (NITROSTAT) 0.[address] 0.4 mg under the tongue as needed. No facility-administered medications prior to visit. PHYSICAL EXAM: Wt Readings from Last 3 Encounters: 12/26/18 125.5 kg (276 lb 9.6 oz) 12/25/18 124 kg (273 lb 5.9 oz) 10/30/18 124 kg (273 lb 5.9 oz) Temp Readings from Last 3 Encounters: 10/30/18 37.3 C (99.1 F) (Temporal) 05/20/18 37 C (98.6 F) (Temporal) 10/11/17 37.1 C (98.7 F) BP Readings from Last 3 Encounters: 12/26/18 130/62 12/25/18 124/60 10/30/18 127/67 Pulse Readings from Last 3 Encounters: 12/26/18 69 12/25/18 78 10/30/18 80 Vital signs:02/06/2019 Wt: 266 Lbs. BP: 126/76 [...] results found for: TOTEPI CARDIAC PROCEDURES/IMAGING Last angiogram:10/27/2016:[facility]. Left main with no significant disease. LAD [...] CPAP titration: 05/20/2013. CPAP 9-11, AHI 21.1 ECHO-none EKG/EVENT MONITOR EK10/26/2016: Normal sinus rhythm, low voltage QRS leads III, aVL, aVF, previous inferior PR. Rate 90 bpm, LA 126 ms, QRS 86 ms, QTC 420 ms, tracing personally reviewed by me EK02/06/2018: Normal sinus rhythm, low voltage QRS to limb leads, V1. Rate 70 bpm, LA 1 34 ms, QRS 78 ms, QTC 412 ms, old inferior PR, tracing personally reviewed by me EK12/26/2018: Normal sinus rhythm, persistent low voltage QRS to inferior leads consisten t with previous inferior PR, low voltage QRS to limb leads V1, V2. Rate 69 bpm, LA 140 ms, QRS 82 ms, QTC 430 [...] 112, BUN 16, creatinine 1.18, GFR 61 ASSESSMENT & PLAN: He was here today for preoperative cardiac risk evaluation for planned back surgery at th e end of January. He has problems as detailed below. His EKG performed in the clinic today shows normal sinus rhythm well-controlled at 69 bpm a nd his blood pressure controlled on current medications. I have ordered an Echo, as he has never had one done to evaluate his EF for preoperative cardiovascular evaluation. He also has a soft murmur which may indicate some regurgitant va lvular disease. I have also ordered an updated CMP, CBC, TSH, and lipid panel, with copies to be sent t o his PCP Dr. Velazquez. Since he had an angiogram with revascularization in 2016, I see no clear indication to or gerry a stress test, unless his echo shows wall motion abnormalities. I will see him back on January 30 to follow-up with him on the results of his echo, and giv e him his cardiac risk evaluation for surgery. He is to see Dr. Padron at the end of January, but may be having his back surgery 01/15, so this may need to be rescheduled. I have requested he bring his medication bottles to the next clinic visit, and I verified h is medication list with him today through a pharmacy dispense report. 1. Coronary artery disease involving douglas coronary artery of douglas heart without angina pectoris 2. Status post insertion of drug-eluting stent into left anterior descending (LAD) artery 3. Paroxysmal atrial fibrillation (HCC) 4. Essential hypertension 5. Dyslipidemia 6. Statin intolerance 7. Recurrent deep vein thrombosis (DVT) ([facility]) 8. Chronic anticoagulation 9. Hypothyroidism, unspecified type 10. Type 2 diabetes mellitus with stage 3 chronic kidney disease, without long-term current use of insulin (HCC) 11. Pre-operative cardiovascular examination 12. Screening for iron deficiency anemia 13. Murmur Orders Placed This Encounter Procedures Comprehensive Metabolic Panel Lipid Panel CBC with Differential TSH, Reflex Free T4 ECG 12 lead ECHO Complete The following portions of the patient's history were personally reviewed by me and updated as appropriate: EKG tracings, other specialty provider and PCP notes,any Hospital admission and discharge summaries, any ER records , current and previous cardiac testing and procedure reports and d manish, medication bottles NOT brought to visit today Allergies, current medications.labs Family history, past medical history, past social history, past surgical history. Problem list. Shreyas CHAMPAGNE [facility] 12/26/2018 docume nted in this encounter Plan of Treatment + + +--------+ + + | Name | Type | Priori | Associated Diagnoses | Order Schedule | | | | ty | | | + + +--------+ + + | Comprehensive | Lab | Routin | Essential | Expected: | | Metabolic Panel | | e | hypertension | 12/26/2018, Expires: | | | | | Dyslipidemia Type 2 | 12/27/2019 | | | | | diabetes mellitus | | | | | | with stage 3 chronic | | | | | | kidney disease, | | | | | | without long-term | | | | | | current use of | | | | | | insulin (HCC) | | + + +--------+ + + | Lipid Panel | Lab | Routin | Dyslipidemia | Expected: | | | | e | | 12/26/2018, Expires: | | | | | | 12/27/2019 | + + +--------+ + + | CBC with | Lab | Routin | Chronic | Expected: | | Differential | | e | anticoagulation | 12/26/2018, Expires: | | | | | Screening for iron | 12/27/2019 | | | | | deficiency anemia | | + + +--------+ + + | TSH, Reflex Free T4 | Lab | Routin | Hypothyroidism, | Expected: | | | | e | unspecified type | 12/26/2018, Expires: | | | | | | 12/27/2019 | + + +--------+ + + | ECHO Complete | Echocardiog | Routin | Coronary artery | Expected: | | | mendy | e | disease involving | 12/26/2018, Expires: | | | | | douglas coronary | 12/27/2019 | | | | | artery of douglas | | | | | | heart without angina | | | | | | pectoris Status | | | | | | post insertion of | | | | | | drug-eluting stent | | | | | | into left anterior | | | | | | descending (LAD) | | | | | | artery Paroxysmal | | | | | | atrial fibrillation | | | | | | (HCC) Chronic | | | | | | anticoagulation | | | | | | Pre-operative | | | | | | cardiovascular | | | | | | examination Murmur | | + + +--------+ + + [...] the | | | | PDT | douglas coronary | results section. | | | | | artery of douglas | | | | | | heart without angina | | | | | | pectoris | | | | | | Paroxysmal atrial | | | | | | fibrillation (HCC) | | | | | | Essential | | | | | | hypertension | | + +--------+ + + + documented in this encounter Results ECG 12 lead (12/26/2018 12:41 PM [...] INTERPRETAT | Please refer to | | WAMT MUSE | | | ION TEXT | Providers office visit | | | | | | note for Providers | | | | | | Interpretation.Confirmed | | | | | | by [employer] [place] Read Only, | | | | | | ICA Mata ([id number]), | | | | | | editorial director KARLOS SLAUGHTER | | | | | | ([id number]) on 12/30/2018 | | | | | [...] + + | Coronary artery disease involving douglas coronary artery of douglas heart without | | angina pectoris - [...] + | Recurrent deep vein thrombosis (DVT) (HCC) | + + | Chronic anticoagulation Encounter for long-term (current) use of anticoagulants | + + | Hypothyroidism, unspecified type | + + | Type 2 diabetes mellitus with stage 3 chronic kidney disease, without long-term | | current use of insulin (HCC) | + + | Pre-operative cardiovascular examination | + + | Screening for iron deficiency anemia | + + | Murmur Undiagnosed cardiac murmurs | + + documented in this encounter
--- OUTSIDE RECORDS SUMMARY | ~2019-02-23 | XMS | Encounter Summary ---
Demographics + + + | Address | [address] | | | [place] [address] | + + + | Home Phone | | + + + | Preferred Language | Unknown | + + + | Marital Status | | + + + | Mu-Ism Affiliation | Unknown | + + + | Race | Unknown | + + + | Ethnic Group | Unknown | + + + Author + + + | Author | [facility] | | | and [place] | + + + | Organization | [facility] | | | [...] Team Providers + +------+ + | Care Oxyhydrogen Welder Name | Role | Phone | + [...] not | | | Coronary | Mercedes Neo, | [address] | | Required | | | artery | ADMINISTRATIVE SALES ASSISTANT [address] | | | | | disease | [address] | [place], [place] | | | | | involving | [place] | [address] | | | | | [address]ma[address] | [place], [place] | Phone: | | | | | coronary | [address] | [phone] | | | | | artery of | Phone: | Fax: | | | | | mi'kmaq heart | [phone] | [phone] | | | | | without | Fax: | | | | | | angina | [phone] | | | | | | pectoris [...] + + | 12/26/ | Office | [facility] | Mercedes Berrios | Coronary artery | | 2019 | Visit | CARDIOLOGY [place] | [address] | disease involving | | | | [address] | [address] | mi'kmaq coronary | | | | [address] | [place] [address] | artery of mi'kmaq | | | | [place] | [phone] | heart without angina | | | | [address] | | pectoris (Primary | | | | [phone] | | Dx); Status post | | [...] (DVT) | | | | | | ([facility]); Chronic | | | | | | [...] insulin | | | | | | ([facility]); Pre-operative | | | | | | [...] you fasting labs to be done at [facility], in next week . I also ordered you an Echo to be done at [place] I made no changes to medications See [...] risk evaluation for planned back surgery In [place] . He is accompanied today by his [...] Dr. Finnegan, he is to be in [place], and is now at [facility] in [facility], which [facility]. He reports he will be getting wedges [...] He quit smoking in 1990 with a 14-mkzx-loce history but denies any ongoing pulmonary diseas [...] recreational or illicit drug use. Lives in [place] . to Lucinda. Outpatient Medications Prior to [...] results found for: TOTEPI CARDIAC PROCEDURES/IMAGING Last angiogram:10/27/2016:[facility]. Left main with no significant disease. [...] QRS leads III, aVL, aVF, previous inferior LA. Rate 90 bpm, ND 126 ms, QRS 86 ms, QTC 420 ms, tracing personally reviewed by me EK02/06/2018: Normal sinus rhythm, low voltage QRS to limb leads, V1. Rate 70 bpm, ND 1 34 ms, QRS 78 ms, QTC 412 ms, old inferior LA, tracing personally reviewed by me EK12/26/2018: Normal sinus rhythm, persistent low voltage QRS to inferior leads consisten t with previous inferior LA, low voltage QRS to limb leads V1, V2. Rate 69 bpm, ND 140 ms, QRS 82 ms, QTC 430 [...] dispense report. 1. Coronary artery disease involving mi'kmaq coronary artery of mi'kmaq heart without angina pectoris 2. Status post insertion of drug-eluting stent into left anterior descending (LAD) artery 3. Paroxysmal atrial fibrillation (HCC) 4. Essential hypertension 5. Dyslipidemia 6. Statin intolerance 7. Recurrent deep vein thrombosis (DVT) ([facility]) 8. Chronic anticoagulation 9. Hypothyroidism, unspecified type [...] past surgical history. Problem list. Shreyas CHAMPAGNE [facility] 12/26/2018 docume nted in this encounter [...] 12/26/2018, Expires: | | | | | mi'kmaq coronary | 12/27/2019 | | | | | artery of mi'kmaq | | | | | | heart [...] the | | | | PDT | mi'kmaq coronary | results section. | | | | | artery of mi'kmaq | | | | | | heart [...] | | | | | by ICA Cades Read Only, | | | | | | ICA Mata ([id number]), | | | | | | assistant editor KARLOS SLAUGHTER | | | | | | ([phone]) on 12/30/2018 | | | | | [...] + + | Coronary artery disease involving mi'kmaq coronary artery of mi'kmaq heart without | | angina pectoris - [...]
--- OUTSIDE RECORDS SUMMARY | ~2019-02-23 | XMS | Encounter Summary ---
Demographics + + + | Address | [address] | | | [place] [address] | + + + | Home Phone | | + + + | Preferred Language | Unknown | + + + | Marital Status | | + + + | Latter-Day Affiliation | Unknown | + + + [...] Team Providers + +------+ + | Care Toll Test Worker Name | Role | Phone | + +------+ + | Kait Velazquez MD | PCP | | + +------+ + Reason for Visit +--------+ + | Reason | Comments | +--------+ + | Other | | +--------+ + Encounter Details +--------+ + + + + | Date | Type | Department | Care Team | Description | +--------+ + + + + | 01/24/ | Telephone | [facility] | Mahin Marks, | Other | | 2019 | | [facility] | [address] | | | | | [facility] [address], | | | | | [place] | [place] [address] | | | | | [place] [address] | [phone] | | | | | [phone] | | | +--------+ + + + [...]
--- OUTSIDE RECORDS SUMMARY | ~2019-02-23 | XMS | Encounter Summary ---
Demographics + + + | Address | [address] | | | [place] [address] | + + + | Home Phone | | + + + | Preferred Language | Unknown | + + + | Marital Status | | + + + | Amish Affiliation | Unknown | + + + | Race | Unknown | + + + | Ethnic Group | Unknown | + + + Author + + + | Author | [facility] | | | and [place] | + + + | Organization | [facility] | | [...] Team Providers + +------+ + | Care Toolmaker Name | Role | Phone | + [...] + + | 04/13/ | Office | [facility] | Thomas Lawler | Lumbar facet | | 2017 | Visit | NEUROSURGERY [address] | [address] | arthropathy; | | | | [address] | [address] | Foraminal stenosis | | | | [place], [place] | [place], [place] | of lumbar region; | | | | [address] | [address] | DDD (degenerative | | | | [phone] | | disc disease), | | | [...] to that injection. Please check with your ski lift attendant and primary care provider regarding this.Electronically signed by Thomas Lawler PA-C at 1 10:27 AM PST documented in this encounter Progress Notes Thomas Lawler PA-C - 04/13/2017 9:45 AM PSTFormatting of this note might be differ ent from the original. Thomas Lawler PA-C [address] [facility] [address] [place] [address] FAX: NEUROSURGERY FOLLOW-UP CHIEF COMPLAINT: Chief Complaint [...] Right COLONOSCOPY 2009 [facility] CORONARY ANGIOPLASTY 10/27/2016 [place] FEMUR SURGERY Left KNEE ARTHROSCOPY Left 2004 NOSE SURGERY SHOULDER SURGERY Left 1979 Weeks; [facility] [place] SHOULDER SURGERY Right 2006 SKIN CANCER EXCISION 2012 Forehead squamous cell SKIN GRAFT Right Ankle TONSILLECTOMY AND ADENOIDECTOMY TOTAL KNEE ARTHROPLASTY Right 2013 Rojas; [facility] [place] TOTAL KNEE ARTHROPLASTY Left 2015 Rojas; [...] has no apparent deficits with short or ferry terminal agent memory. CRANIAL NERVES: Fundoscopic Exam: The optic [...] Intrinsics 5 5 Ulnar Intrinsics 5 5 Photo Finish Photographer Strength 5 5 Hip Flexion 5 5 [...] with his primary care provider in his ski lift attendant regard ing his blood thinning medications. He [...]
--- OUTSIDE RECORDS SUMMARY | ~2019-02-23 | XMS | Encounter Summary ---
Demographics + + + | Address | [address] | | | [place] [address] | + + + | Home Phone | | + + + | Preferred Language | Unknown | + + + | Marital Status | | + + + | Rastafarian Affiliation | NRP | + + + [...] Team Providers + +------+ + | Care Cold Patcher Name | Role | Phone | + [...] | | | | Assessment Clinic | [place] [address] | | | | | [address] | | | | | | [facility] [address] | | | | | | [place], [place] | | | | | | [address] | | | | | | [phone] | | | +--------+ + + + [...] Kelly | | | | | | [place], [place] | | | | | | [address] | | | | | | | | +--------+---------+ + + + documented as of this encounter Visit Diagnoses Not on filedocumented in this encounter"
--- OUTSIDE RECORDS SUMMARY | ~2019-02-23 | XMS | Encounter Summary ---
Demographics + + + | Address | [address] | | | [place] [address] | + + + | Home Phone | | + + + | Preferred Language | Unknown | + + + | Marital Status | | + + + | Baptist Affiliation | Unknown | + + + | Race | Unknown | + + + | Ethnic Group | Unknown | + + + Author + + + | Author | [facility]erged With [facility] | | | and [place] | + + + | Organization | Merged With [facility] | | | [...] Team Providers + +------+ + | Care Mental Health Counselor Name | Role | Phone | + [...] | | stenosis of | [place] | [address] Phone: | | | | | lumbar | [address] | [phone] | | | | | region | Phone: | Fax: | | | | | Lumbar | [phone] | [phone] | | | | | radiculopath | Fax: | | | | | | y | [phone] | | + + + + + + + Encounter Details +--------+---------+ + + + | Date | Type | Department | Care Team | Description | +--------+---------+ + + + | 12/25/ | Office | [facility] [place] | Shemar Gillis, | Lumbar radiculopathy | | 2019 | Visit | PHYSIATRY [address] | PA-C [address] | (Primary Dx) | | | | [place], | [address] [place] | | | | | [place] [address] | [place] [address] | | | | | [phone] | [phone] | | | | | | | [...] of the procedure you must provide a cdl truck driver to take you home. Common Spine [...] disk, and irritate nerves. Date Last Reviewed: 09/14/201719998164-2862 [employer] [place] [address], [place] [address]. [address] [facility] reserved. This information is not intended as a substitute for professional medical care. Always follow your healthcare professional's instructions. documented in this encounter Progress Notes Shemar Gillis PA-C - 12/25/2018 1:40 PM PDTFormatting of this note might be different fro m the original. Shemar Gillis PA-C [address] [facility] [place] [address] [place] [address] FAX: CHIEF COMPLAINT: Chief Complaint Patient presents with Follow-up Back Pain HISTORY OF PRESENT ILLNESS: Antonio Azveedo Jr. is a 73 y.o. male being [...] has no apparent deficits with short or fci memory. The cranial nerves appear grossly intact. [...] PT (multiple sessions over the years) and resident care aide. Unfortunately Antonio Mejia Azevedo Jr. continues to [...]
--- OUTSIDE RECORDS SUMMARY | ~2019-02-23 | XMS | Encounter Summary ---
Demographics + + + | Address | [address] | | | [place] [address] | + + + | Home Phone | | + + + | Preferred Language | Unknown | + + + | Marital Status | | + + + | Oriental Orthodox Affiliation | Unknown | + + + | Race | Unknown | + + + | Ethnic Group | Unknown | + + + Author + + + | Author | [facility] | | | and [place] | + + + | Organization | [facility] | | | and [...] Team Providers + +------+ + | Care Acid Treater Name | Role | Phone | + +------+ + | Kait Velazquez MD | PCP | | + +------+ + Reason for Visit + + + | Reason | Comments | + + + | Follow-up | Discuss GeneSight results | + + + Encounter Details +--------+---------+ + + + | Date | Type | Department | Care Team | Description | +--------+---------+ + + + | 12/04/ | Office | [facility] | Carey, | Lumbar facet | | 2018 | Visit | PHYSIATRY [address] | [address] | arthropathy (HCC) | | | | [place], | [address] [place], | (Primary Dx); Lumbar | | | | [place] [address] | [place] [address] | spondylosis; DDD | | | | [phone] | [phone] | (degenerative disc | | | | | | disease), lumbar; | | | | | | Foraminal stenosis | | | | | | of lumbar region; | | | | | | Lumbar radicular | | | | | | pain | +--------+---------+ + + + Social [...] + + + | Blood Pressure | 110/64 | 12/04/2017 3:30 PM | | | | | PDT | | + + + + + | Pulse | 80 | 12/04/2017 3:30 PM | | | | | PDT [...] Weight | 120.2 kg (265 lb) | 12/04/2017 3:30 PM | | | | | PDT | | + + + + + | Height | 175.3 cm (5' 9") | 12/04/2017 3:30 PM | | | | | PDT | | + + + + + | Body Mass Index | 39.13 | 12/04/2017 3:30 PM | | | | | PDT | | + + + + + documented in this encounter Patient Instructions Patient Instructions Елена Patino PA-C - 12/04/2017 4:00 PM PDT1- Start taking Angella ebrex 200mg twice daily, morning and night - ops, talk to PCP to switch to Eliquis so you ca n then take this NSAID 2 - Start taking over the counter L-methylfolate 1000mg - can get at [facility], [employer] etc. 3- Try anti-depressents either Wellbutrin After 1 week of being on NSAIDS you will wiene off oxycodone with Ativan 4 - Wiene off oxycodone - you will go through withdrawls, I'll give you Ativan for this per iod, but nothing longer - I just recommend 1.5 pills/day, then 1 pill/day, then 1/2 pill/day then off Then and then neuropathic pain medicine Carbamazapine documented in this encounter Progress Notes Елена Patino PA-C - 12/04/2017 4:00 PM PDTFormatting of this note might be differe nt from the original. Елена Patino PA-C [address] [facility], [address] [place], [place] [id number] FAX: PHYSICAL MEDICINE AND REHABILITATION H&P CHIEF COMPLAINT: Chief Complaint Patient presents with Follow-up Discuss GeneSight results HISTORY OF PRESENT ILLNESS: The patient is a 72 y.o. male being seen today for follow up c omplaints of back pain that began a chronic issue for months now. He has seen Dr. Lawler in n eurosurgery and is trying to exhaust conservative therapies. He underwent RFA therapy of th e L4-L5, L5-S1 facet joints with Dr. Handley on October 11, 2017. He reports overall feelin g 60% improvement. He has new symptoms pop-up since having this procedure. He reports very low back pain with radiation into the buttock's along with numbness to the lateral thigh re gion. He reports the numbness into the lateral thigh comes and goes throughout the day and is not associated with position. He reports this has been improving since icing his low mark k. The patient is awaiting bilateral L5/S1 TFESI to target the spinal stenosis. He has also been a long time patient of Dr. Flores at [facility]. He reports l ast Tuesday 11/07 Dr. Flores abruptly stopped his oxycodone which he has been taking for ov er 10 years and switched him onto Tylenol. The patient started going through withdrawals and thus started taking oxycodone again. He is very upset that Dr. Flores did not offer him an y other choices or medications to bridge on to. We recently performed a GeneSight Testing a nd he is here today to review. He was having left leg symptoms, however [...] (WELLBUTRIN XL) 150 mg 24 hr tablet Take 1 tablet by mouth Daily. 30 tablet 0 carBAMazepine (TEGRETOL) 100 mg chewable tablet Take 1 tablet by mouth 3 times daily (w ith meals). 90 tablet 0 celecoxib (CELEBREX) 200 mg capsule Take 1 capsule by mouth 2 times daily. 60 capsule 2 cholecalciferol (VITAMIN D-3) 1,000 units capsule Take 1,000 Units by mouth Daily. Desoximetasone 0.05 % GEL Apply 1 Application topically 2 times daily. ezetimibe (ZETIA) 10 mg tablet Take 10 mg by mouth Daily. famotidine (PEPCID) 40 MG tablet Take 1 tablet by mouth nightly. 1 levothyroxine (SYNTHROID) 50 mcg tablet Take 50 [...] per tablet Take 1 tablet by mouth 2 times d aily. 60 tablet 0 warfarin (COUMADIN) 5 mg tablet Take 7.5 [...] of systems was negative. PHYSICAL EXAMINATION: Vitals: 12/04/17 1530 BP: 110/64 Pulse: 80 PainSc: 5 PainLoc: Back Body mass index is 39.13 kg/m. GENERAL: [...] has no apparent deficits with short or joint terminal attack controller memory. He has appropriate fund of knowledge [...] the pain to the L5/S1 amrita on and into the buttocks. Lumbar facet loading was positive at L5/S1. Strength testing jono wed 5/5 strength throughout the lower extremities. The patient was able to heel and toe wal k without difficulty. There was no redness, effusion, warmth or joint line tenderness in th e knees or ankles. RADIOGRAPHIC REVIEW: The patient's imaging was reviewed in detail with the patient today during the visit. Lumb ar MRI from 2017 shows lumbar DDD with disc space narrowing at L4/L5, L5/S1, moderate to sev ere facet arthritis/hypertrophy with foraminal stenosis on the left at L4/L5. ASSESSMENT: 1. Lumbar facet arthropathy (HCC) 2. Lumbar spondylosis 3. DDD (degenerative disc disease), lumbar 4. Foraminal stenosis of lumbar region 5. Lumbar radicular pain PLAN: 1. Patient has participated in physical therapy, this was done at [facility], a total of 10 visits, his leg radicular symptoms improved with PT, but not the chronic low mark k pain. 2. Did respond well to the bilateral L3, L4 MBB and L5 dorsal root rami RFA therapy. We d iscussed his MRI in detail with the disc degeneration at L4-L5 and L5-S1 with moderate spina l stenosis at L4-L5. Because of this I offered bilateral L5-S1 TF KASSIDY to be done by Dr. Tamiko bermeo in the near future. He is awaiting to do this next week. 3. Reviewed his GeneSight testing. -- Reduced Folic Acid Conversion - recommend OTC L-methylfolate 1000mg daily -- Due to his reduced folic acid, recommend daily antidepressant: Wellbutrin 150mg q24 gage rs started. Other options can be Zoloft. -- Recommend talk to PCP about switching from Coumadin to Eliquis so he can take NSAIDS - he DOES respond to Celebrex, diclofenax, ibuprofen, meloxicam, naproxen. We will start with Celebrex 200mg BID, as long as his PCP will make changes. 4. After one week of being on NSAIDS, Wellbutrin and L-methylfolate, recommend he wiene of f oxycodone, discussed withdrawal effects, I have given patient Ativan 1mg to take BID durin g this time. 5. After his body normalizes we will see how the steroid injection does, plus NSAIDS, Well butrin and L-methylfolate, and will start on Carbamezapine 100mg up to TID if needed. He does not respond to: Cymbalta Trazadone, Amitriptyline, Nortriptyline, Hydrocodone, oxycodone, Codeine, Tramadol (moderate gene-drug interaction) Flexeril - moderate gene-drug interaction 6. I will follow up with patient 3 weeks after steroid injection. ELECTRONICALLY SIGNED BY: Елена Patino PA-C, 12/04/2017 CC: Tito Velazquezlectronically signed by Елена Patino PA-C at 12/04/2017 5:08 PM PD Tdocumented in this encounter Plan of Treatment Not on filedocumented as of this encounter Procedures + +--------+ + + + | Procedure Name | Priori | Date/Time | Associated Diagnosis | Comments | | | ty | | | | + +--------+ + + + | LABS - EXTERNAL SCAN | | 11/23/2017 | | Results for this | | | | 12:00 AM | | procedure are in the | | | | PDT | | results section. | + +--------+ + + + documented in this encounter Results LABS - EXTERNAL SCAN (11/23/2017 12:00 AM PDT) + + + | [...] | intervertebral disc | + + | Foraminal stenosis of lumbar region Spinal stenosis, lumbar region, without | | neurogenic claudication | + + | Lumbar radicular pain Thoracic or lumbosacral neuritis or radiculitis, unspecified | + + documented in this encounter
--- OUTSIDE RECORDS SUMMARY | ~2019-02-23 | XMS | Encounter Summary ---
Demographics + + + | Address | [address] | | | [place] [address] | + + + | Home Phone [...] Team Providers + +------+ + | Care Foreign Language Professor Name | Role | Phone | + +------+ + | Paul Boss MD | PCP | | + +------+ + Encounter Details +--------+ + + + + | Date | Type | Department | Care Team | Description | +--------+ + + + + | 10/11/ | Hospital | [facility] | Tahir Handley | | | 2018 | Encounter | MED CTR IR INTRA OP | T, MD [address] | | | | | [address] | [address] [place], [place] | | | | | [place], [place] | [address] | | | | | [address] | | | | | | [phone] | | | +--------+ + + + [...] neurotomy, or rhizomotomy. How to say it [id number] No Why radiofrequency denervation is done This [...] up to 4 months Date Last Reviewed: 09/15/201519993570-1891 [employer] [place], [place] [id number]. All righ ts reserved. This information is [...] | + + + + + | [address] | [address] | [place] | [phone] | | [facility] | | [address] | | | - LABORATORY | | [...]
--- OUTSIDE RECORDS SUMMARY | ~2019-02-23 | XMS | Encounter Summary ---
Demographics + + + | Address | [address] | | | [place] [address] | + + + | Home Phone | | + + + | Preferred Language | Unknown | + + + | Marital Status | | + + + | Congregational Affiliation | NRP | + + + [...] Team Providers + +------+ + | Care Archeologist Classical Name | Role | Phone | + +------+ + | Kait Velazquez MD | PCP | | + +------+ + Encounter Details +--------+ + + + + | Date | Type | Department | Care Team | Description | +--------+ + + + + | 02/07/ | Telephone | [facility] | T[place], | | | 2019 | | [facility] [address] | Dhruv Mcmanus MD [address] | | [address] | [address] | | | | | [place], [place] | [address] [place], [place] | | | | | [address] | [address] | | | | | [phone] | | | +--------+ + + + [...] [address] | | | | | | [place], [place] | | | | | | [address] | | | | | | | | +--------+---------+ + + + documented as of this encounter Visit Diagnoses Not on filedocumented in this encounter"
--- OUTSIDE RECORDS SUMMARY | ~2019-02-23 | XMS | Encounter Summary ---
Demographics + + + | Address | [address] | | | [place] [address] | + + + | Home Phone | | + + + | Preferred Language | Unknown | + + + | Marital Status | | + + + | Latter-Day Affiliation | Unknown | + + + | Race | Unknown | + + + | Ethnic Group | Unknown | + + + Author + + + | Author | [facility] | | | and [place] | + + + | Organization | [facility] | | | [...] Team Providers + +------+ + | Care Regional Office Coordinator Name | Role | Phone | + +------+ + | Paul Boss MD | PCP | | + +------+ + Encounter Details +--------+ + + + + | Date | Type | Department | Care Team | Description | +--------+ + + + + | 10/11/ | Hospital | [facility] | Tahir Handley | | | 2018 | Encounter | MED CTR IR INTRA OP | T, MD [address] | | | | | [address] | [address] [place], [place] | | | | | [place], [place] | [address] | | | | | [address] | | | | | | [phone] | | | +--------+ + + + [...] neurotomy, or rhizomotomy. How to say it [id number] No Why radiofrequency denervation is done This [...] up to 4 months Date Last Reviewed: 09/15/201519994435-[address] [place], [place] [address]. All righ ts reserved. This information is [...] [address] | [place] | [phone] | | [facility] | | [address] | | | - LABORATORY | | [...]
--- OUTSIDE RECORDS SUMMARY | ~2019-02-23 | XMS | Clinical Summary ---
Demographics + + + | Address | [address] | | | [place] [address] | + + + | Home Phone | | + + + | Preferred Language | Unknown | + + + | Marital Status | | + + + | Voodoo Affiliation | NRP | + + + | Race | White | + + + | Ethnic Group | Not or | + + + Author + + + | Author | [facility] | + + + | Organization | [facility] | + + + | Address | Unknown | + + + | Phone | Unavailable | + + + Support + + +---------+ + | Name | Relationship | Address | Phone | + + +---------+ + | Lara Azevedo | ECON | Unknown | | + + +---------+ + Care Team Providers + +------+ + | Care Agility Instructor Name | Role | Phone | + +------+ + | Kait Velazquez MD | PCP | | + +------+ + Source Comments LINDSAY is fully live on both [facility] and [facility] Allergies + + + + + + | Active Allergy | Reactions | Severity | Noted | Comments | | | | | Date | | + + + + + + | Formaldehyde | Dyspnea | High | 10/28/19 | | | | | | 17 | | + + + + + + | Hydrocodone-Acetamin | Rash | Medium | 09/21/19 | Does not remember | | ophen | | | 17 | | + + + + + + | Iodinated Contrast | Rash, Dyspnea | High | 10/28/19 | Trouble Breathing | | Media | | | 17 | | + + + + + + | Iodine | Anaphylaxis | High | 10/12/19 | | | | | | 18 | | + + + + + + | Lovastatin | Anaphylaxis, | High | 09/21/19 | Aches and pains | | | Diarrhea, Nausea and | | 17 | Aches and pains | | | Vomiting | | | | + + + + + + | Niacin | Unknown | | 10/28/19 | Doesn't recall | | | | | 17 | | + + + + + + | Nut - Unspecified | Dyspnea | High | 10/11/19 | Seafood, shellfish | | | | | 18 | | + + + + + + | Penicillins | Unknown, Rash, | High | 09/21/19 | Does not remember | | | Dyspnea | | 17 | | + + + + + + | Povidone-Iodine | Urticaria | | 10/26/19 | | | | | | 19 | | + + + + + + | Sodium Chloride | Dyspnea | High | 10/28/19 | "hallogens" | | | | | 17 | | + + + + + + | Sulfa (Sulfonamide | Unknown | | 11/20/19 | | | Antibiotics) | | | 19 | | + + + + + + Medications + + + +---------+------+------+-------+ | Medication | Sig | Dispensed | Refills | Star | End | Statu | | | | | | t | Date | s | | | | | | Date | | | + + + +---------+------+------+-------+ | ELIQUIS 5 mg oral | take 1 tablet by | | 0 | 12/16 | | Activ | | tablet | mouth twice a day | | | 08/03 | | e | | | | | | 19 | | | + + + +---------+------+------+-------+ | levothyroxine 50 | Take 50 mcg by mouth | | 0 | | | Activ | | mcg oral tablet | before breakfast. | | | | | e | + + + +---------+------+------+-------+ | metoprolol | Take 50 mg by mouth | | 0 | 07/2 | | Activ | | succinate 50 mg oral | once daily at | | | 720 | | e | | tablet extended | bedtime. | | | 19 | | | | release 24 hr | | | | | | | + + + +---------+------+------+-------+ | lisinopril 10 mg | Take 10 mg by mouth | | 0 | 08/1 | | Activ | | oral tablet | once daily. | | | 720 | | e | | | | | | 19 | | | + + + +---------+------+------+-------+ | ezetimibe 10 mg | take 1 tablet by | | 0 | 07/1 | | Activ | | oral tablet | mouth once daily | | | 720 | | e | | | | | | 19 | | | + + + +---------+------+------+-------+ | amitriptyline 10 | Take 1 tablet by | 30 | 0 | 10/2 | | Activ | | mg oral tablet | mouth once daily in | tablet | | 8/20 | | e | | | the evening. | | | 19 | | | + + + +---------+------+------+-------+ | oxyCODONE | Take 1 tablet by | 20 | 0 | 10/2 | | Activ | | (immediate release) | mouth every six | tablet | | 8/20 | | e | | 5 mg oral tablet | hours as needed for | | | 19 | | | | | severe pain. | | | | | | + + + +---------+------+------+-------+ | acetaminophen 325 | Take 2 tablets by | | 0 | 10/2 | | Activ | | mg oral | mouth every six | | | 8/20 | | e | | tabletIndications: | hours as needed for | | | 19 | | | | Lumbar degenerative | fever or mild pain. | | | | | | | disc disease | | | | | | | + + + +---------+------+------+-------+ | bisacodyl 10 mg | Unwrap and insert 1 | | 0 | 10/2 | | Activ | | rectal suppository | suppository rectally | | | 8/20 | | e | | | once daily as | | | 19 | | | | | needed (2nd [...] tolerate oral). | | | | | | + + + +---------+------+------+-------+ | dexAMETHasone 2 mg | Take 1 tablet by | 1 | 0 | 10/2 | | Activ | | oral tablet | mouth every | tablet | | 8/20 | | e | | | twenty-four hours. | | | 19 | | | + + + +---------+------+------+-------+ | lactobacillus | Take 1 capsule by | | 0 | 10/2 | | Activ | | rhamnosus (GG) oral | mouth once daily. | | | 8/20 | | e | | capsule | | | | 19 | | | + + + +---------+------+------+-------+ | methocarbamol 500 | Take 1 tablet by | 15 | 0 | 10/2 | | Activ | | mg oral tablet | mouth three times | tablet | | 8/20 | | e | | | daily as needed. | | | 19 | | | + + + +---------+------+------+-------+ | tamsulosin 0.4 mg | Take 1 capsule by | 30 | 0 | 10/2 | | Activ | | oral | mouth once daily. | capsule | | 8/20 | | e | | capsuleIndications: | | | | 19 | | | | Lumbar foraminal | [...] disease | | | | | | | + + + +---------+------+------+-------+ | tiZANidine 2 mg | Take 1-2 tablets by | 60 | 1 | 11/0 | | Activ | | oral tablet | mouth four times | tablet | | 7/20 | | e | | | daily as needed | | | 19 | | | | | (spasms). Max: 36 mg | | | | | | | | / day. 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 | 12/26/2018 | | descending (LAD) artery | | + + + | Lumbar degenerative disc disease | 11/19/2018 | + + + | Lumbar foraminal stenosis | 11/19/2018 | + + + | Lumbar spine scoliosis, early | 11/19/2018 | + + + | Other spondylosis with radiculopathy, lumbar region | 11/19/2018 | + + + | Morbid obesity | 08/08/2017 | + + + | 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 | 10/28/2016 | + + + | Type 2 diabetes mellitus with renal complication | 10/27/2016 | + + + + [...] extremity | | + + + | Obstructive sleep apnea syndrome | 09/20/2016 | + + + + + | Overview: Last Assessment & Plan: | | Uses CPAP at home did not bring, family will bring later today | + + + + + | Paroxysmal atrial fibrillation | 09/20/2016 | + + + + + | Overview: Last Assessment & Plan: Hx PAF, no recentn events | | to his knowledge chronically anticoagulatedIn SR since admission, | | rate in good rangePlan Continue metoprolol Resume Coumadin | | post cath | | Continue metoprolol | | Resume Coumadin post cath | + + Encounters +--------+ + + + + | Date | Type | Specialty | Care Team | Description | +--------+ + + + + | 02/20/ | Telephone | Neurological Surgery | Sanjay Finnegan MD | | | 2018 | | | | | +--------+ + + + + | 02/19/ | Telephone | Neurological Surgery | Sanjay Finnegan MD | | | 2018 | | | | | +--------+ + + + + | 02/14/ | Telephone | Neurological Surgery | Sanjay Finnegan MD | Triage To ED (Severe | | 2018 | | | | Calf cramping ) | +--------+ + + + + | 02/07/ | Telephone | Urology | Tameka, | | | 2018 | | | Dhruv Mcmanus MD | | +--------+ + + + + | 02/03/ | Anesthesia | Surgery | Ivis Williamson, | | | 2018 | Event | | MD | | +--------+ + + + + | 02/03/ | Surgery | Surgery | Sanjay Finnegan MD | EXTREME LATERAL | | 2018 | | | | INTERBODY FUSION | | | | | | L4-5/TRANSFORAMINAL | | | | | | INTERBODY FUSION | | | | | | L5-S1/POSTERIOR | | | | | | L4-S1 FUSION | +--------+ + + + + | 02/03/ | Hospital | Adult Acute Care | Sanjay Finnegan MD | | | 2019 - | Encounter | | | | | | | | | | | 02/10/ | | | | | | 2018 | | | | | +--------+ + + + + | 02/03/ | Travel | | | | | 2018 | | | | | +--------+ + + + + | 02/03/ | Procedure | Surgery | | | | 2018 | Pass | | | | +--------+ + + + + | 01/24/ | Document-Sc | Neurological Surgery | Sanjay Finnegan MD | | | 2018 | anned | | | | +--------+ + + + + | 01/23/ | Anesthesia | Pre-operative | Trini Campa, | | | 2019 | Event | Medicine | [place] | | +--------+ + + + + | 01/23/ | Office | Neurological Surgery | Cosme Baker, | Lumbar degenerative | | 2018 | Visit | | PA-Cachorro | disc disease | | | | | | (Primary Dx); Lumbar | | | | | | foraminal stenosis; | | | | | | Other spondylosis | | | | | | with radiculopathy, | | | | | | lumbar region; Other | | [...] | | | | | (HCC) | +--------+ + + + + | 01/23/ | Office | Pre-operative | Franklin Cody, | Pre-op evaluation | | 2018 | Visit | Medicine | MD | (Primary Dx); Lumbar | | | | | | degenerative disc | | | | | | disease; Obstructive | | | | | | sleep apnea | | | | | | syndrome; Coronary | | | | | | arteriosclerosis in | | | | | | holy cross artery; | | | | | | [...] | | | | | intubation | +--------+ + + + + | 01/23/ | Travel | | | | | 2018 | | | | | +--------+ + + + + | 01/01/ | Telephone | Neurological Surgery | Sanjay Finnegan MD | | | 2018 | | | | | +--------+ + + + + | 12/20/ | Telephone | Neurological Surgery | Cosme Baker, | | | 2018 | | | BALA | | +--------+ + + + + | 11/28/ | Telephone | Neurological Surgery | Sanjay Finnegan MD | Question | | 2018 | | | | | +--------+ + + + + from Last 3 Months Family History + + +------+ + | Medical History | Relation | Name | Comments | + + +------+ + | No Known Problems | Brother | | | + + +------+ + | Heart Attack | Father | | | + + +------+ + | Cancer | Mother | | | + + +------+ + | Diabetes | Mother | | | + + +------+ + | Heart Disease | Mother | | | + + +------+ + | Hypertension | Mother | | | + + +------+ + | Arthritis | Sister | | | + + +------+ + | Atrial fibrillation | Sister | | | + + +------+ + | Lung Cancer | Sister | | | + + +------+ + + +------+ + + | Relation | Name | Status | Comments | + +------+ + + | Brother | | Alive | | + +------+ + + | Father | | | | + +------+ + + | Mother | | | | + +------+ + + | Sister | | Alive | | + +------+ + + | Sister | | | | + +------+ + + Social History + +-------+ +--------+ [...] [place] | | | | | | [place], [place] | | | | | | [address] | | | | | | | | +--------+---------+ + + + + + + + + | Health Maintenance | Due Date | Last Done | Comments | + + + + + | Pneumococcal | | 07/12/2016 | | | vaccination (2 of 2 | 8 | | | | - PCV13) | | | | + + + + + | Influenza (Flu) | Completed | 01/20/2019, 01/31/2018, | | | vaccination | | 03/14/2017, Additional history | | | | | exists | | + + + + + Implants + +------+-------+ +--------+--------+--------+ | Implanted | Type | Area | Manufacture | Device | Shelf | Model | | | | | r | | Expira | / | | | | | | Identi | tion | Serial | | | | | | fier | Date | / Lot | + +------+-------+ +--------+--------+--------+ | Chelety Conorm Maxxeus 10cc / | | N/A: | COMMUNITY | | 10/13/ | 2017-07 | | - [id number]: Qty: | | Spine | TISSUE BANK | | 2020 | 0 | | 1 on 02/03/2019 by Sanjay Finnegan | | | | | | /[id number] | | MD Tamar at [facility] Rev Location | | | | | | 1-358 | | | | | | | | /00-33 | | | | | | | | 50 | + +------+-------+ +--------+--------+--------+ | Bone Infuse Kit X Small | | N/A: | | | | | | [id number] - [id number]: | | Spine | | | | | | Qty: 1 on 02/03/2019 by Sivan, | | | | | | | | Sanjya Boyle MD at [facility] IP Rev | | | | | | | | Location | | | | | | | + +------+-------+ +--------+--------+--------+ | Bone Infuse Kit Xx Small | | N/A: | NUVASIVE | | 01/13/ | [id number] | | [id number] - [id number]: | | Spine | | | 2020 | 0 / | | Qty: 1 on 02/03/2019 by Sivan, | | | | | | /[id number] | | Sanjay Boyle MD at [facility] IP Rev | | | | | | [id number] | | Location | | | | | | | + +------+-------+ +--------+--------+--------+ | Oblique Tlif, Implanted: Qty: | | N/A: | | | | [id number] | | 1 on 02/03/2019 by Sivan, | | Spine | | | | 4 / / | | Sanjay Boyle MD at [facility] IP Rev | | | | | | | | Location | | | | | | | + +------+-------+ +--------+--------+--------+ | Implant Coroent Xl Wide 15 8 | | N/A: | | | | [id number] | | X 22 X 55mm [id number] - | | Spine | | | | 5 / / | | [id number]: Qty: 1 on | | | | | | | | 02/03/2019 by Sanjay Finnegan, | | | | | | | | MD at [facility] Rev Location | | | | | | | + +------+-------+ +--------+--------+--------+ | Screw Precept Polyaxial 7.5 X | | N/A: | | | | [id number] | | 50mm [id number] - | | Spine | | | | 0A / / | | [id number]: Qty: 4 on | | | | | | | | 02/03/2019 by Sanjay Finnegan, | | | | | | | | MD at [facility] Rev Location | | | | | | | + +------+-------+ +--------+--------+--------+ | Screw Precept Polyaxial 8.5 X | | N/A: | | | | [id number] | | 50mm [id number] - | | Spine | | | | 0A / / | | [id number]: Qty: 2 on | | | | | | | | 02/03/2019 by Sanjay Finnegan, | | | | | | | | MD at [facility] IP Rev Location | | | | | | | + +------+-------+ +--------+--------+--------+ | Set Screw Precept [id number] | | N/A: | | | | [id number] | | [id number]: Qty: 6 on | | Spine | | | | 0 / / | | 02/03/2019 by Sanjay Finnegan, | | | | | | | | at [facility] [place] Rev Location | | | | | | | + +------+-------+ +--------+--------+--------+ | Precept Ti RodImplanted: Qty: | | N/A: | | | | [id number] | | 2 on 02/03/2019 by Sivan, | | Tramaine | | | | 5 / / | | Sanjay Boyle MD at [facility] Rev | | | | | | | | Location | | | | | | | + +------+-------+ +--------+--------+--------+ Procedures + +--------+ + + + | [...] section. | + +--------+ + + + from Last 3 Months Results GLUCOSE, POC (02/10/2019 7:34 AM PDT)Only the most recent of 18 results within the time martha bang is included. + +---------+ + + + | Component [...] Note | + -------+ | Service Account, [employer] In Interface - 02/06/2019 3:03 PM [...] RADIOLOGY | [address] | [place] [address] | [phone] | | VOICE RECOGNITION | | | [...] + | [facility] | [address] | [place] [address] | [phone] | | VOICE RECOGNITION | | | [...] [facility] | [address] | [place] [address] | | | LAB | | | [...] | | [facility] | | | NEPALESE | | | | | + +---------+ [...] Disease Education Program. Estimated GFR Interpretive | [facility] | | Information: <60 mL/min/1.73 sq m [...] [facility] | [address] | [place] [address] | | | LAB | | | [...] [facility] | [address] | [place] [address] | | | LAB | | | [...] [facility] | [address] | [place] [address] | | | LAB | | | [...] [facility] | [address] | [place] [address] | | | LAB | | | [...] [facility] | [address] | [place] [address] | | | LAB | | | [...] [facility] | [address] | [place] [address] | | | LAB | | | | + + + + + BASIC METABOLIC SET (NA, K, [...] | | [facility] | | | NEPALESE | | | | | + +---------+ [...] [facility] | [address] | [place] [address] | | | LAB | | | [...] RADIOLOGY | [address] | [place] [address] | [phone] | | VOICE RECOGNITION | | | [...] RADIOLOGY | [address] | [place] [address] | [phone] | + + + + + ETT (02/03/2019 1:56 PM PDT) + + [...] MD Performing | | | Provider: Ivis Ambriz MD | | + + + CONFIRMATORY ABO/RH (02/03/2019 8:51 [...] BLOOD | [address] | [place] [address] | | | BANK | | | | + + + + + CARDIOLOGY (02/03/2019 12:00 AM PDT) + + + | Narrative | Performed At | + + + | | | + + + CULTURE, MRSA/MSSA SCREEN (01/23/2019 [...] | + + + + + | [facility] | [address] | [place] [address] | | | LAB | | | | + + + + + ANTIBODY SCREEN (01/23/2019 12:18 PM PDT) + [...] BLOOD | [address] | [place] [address] | | | BANK | | | [...] BLOOD | [address] | [place] [address] | | | BANK | | | [...] for Diabetes: 5.7-6.4% Provisional Diagnosis of | [facility] | | Diabetes: Greater than, or equal to 6.5% New Reference Range based on | [facility] | | the [place] [employer]'s Standards of Medical Care in | | | Diabetes - 2012. | | + + + + + + + + | Performing | Address | City/State/Zipcode | Phone Number | | Organization | | | | + + + + + | [facility] | [address] | [place] [address] | | | LAB | | | | + + + + + from Last 3 Months Insurance + +--------+ +--------+ + +--------+ | Payer | Benefi | Subscriber | Effect | Phone | Address | Type | | | t Plan | ID | meghann | | | | | | / | | Dates | | | | | | Group | | | | | | + +--------+ +--------+ + +--------+ | MEDICARE | MEDICA | xxxxxxxxxxx | | [phone] | [address] | [address] | | | RE A & | | [phone] | [address] | | | B | | esent | | [place] | | | | | | | | [phone] | | + +--------+ +--------+ + +--------+ | COMMERCIAL GROUP | COMMER | xxxxxxxx | Effect | | | Indemn | | | CIAL | | meghann | | | ity | | | GROUP | | for | | | | | | | | all | | | | | | | | dates | | | | + +--------+ +--------+ + +--------+ | MEDICARE | MEDICA | xxxxxxxxxx | | [phone] | [address] | [address] | | | RE A & | | [phone] | [address] | | | B | | esent | | [place] | | | | | | | | [phone] | | + +--------+ +--------+ + +--------+ | [employer] [place] | MUTUAL | [id number] | Effect | [phone] | MUTUAL OF | Indemn | | MEDICARE SUPPL | OF | | meghann | 0 | [place] | ity | | | [place] | | for | | [place] | | | | MEDICA | | all | | [place] | | | | RE | | dates | | [phone] | | | | SUPPL | | | | | | + +--------+ +--------+ + +--------+ + +--------+ +--------+ + + | Guarantor Name | Accoun | Relation to | Date | Phone | Billing Address | | | t Type | Patient | of | | | | | | | | | | + +--------+ +--------+ + + | Antonio Azevedo | Person | Self [birth year] | [address] | | | al/Fam | | 1945 | [phone] | [place] [address] | | | fernanda | | | 0 (Home) | | + +--------+ +--------+ + + | Antonio Azevedo | Person | Self | [birth year] | [address] | | | al/Fam | | 1945 | [phone] | [place] [address] | | | fernanda | | | 0 (Home) | | + +--------+ +--------+ + + Advance Directives + + + + + | Code Status | Date | Date | Comments | | | Activated | Inactivated | | + + + + + | Full Code | 02/04/2019 | 02/10/2019 | | | | 8:49 AM | 6:09 PM | | + + + + + + + + +---+ | | | | | + + + +---+ | Full Code | 02/03/2019 | 02/03/2019 | | | | 7:13 AM | 6:49 PM | | + + + +---+
--- OUTSIDE RECORDS SUMMARY | ~2019-02-23 | XMS | Encounter Summary ---
Demographics + + + | Address | [address] | | | [place] [address] | + + + | Home Phone [...] Team Providers + +------+ + | Care Electrical Project Engineer Name | Role | Phone | + +------+ + | Paul Boss MD | PCP | | + +------+ + Reason for Visit + + + | Reason | Comments | + + + | Appointment Question | | + + + Encounter Details +--------+ + + + + | Date | Type | Department | Care Team | Description | +--------+ + + + + | 09/17/ | Telephone | [facility] | Tahir Handley | Appointment Question | | 2018 | | PHYSIATRY [address] | | | | | [place], | [place], [place] | | | | | [place] [address] | [address] | | | | | [phone] | | | +--------+ + + + [...] encounter Results FL DESTRUCTION BY NEUROLYTIC AGENT JAYJAY (10/11/2017 1:14 PM PDT) + + | Specimen | + + | | + + + + + | Narrative | Performed At | + + + | | [facility] | | 10/11/2017RADIOFREQUENCY ABLATION CLINICAL HISTORY: ICD-10 Code M47.816 | | | LUMBAR SPONDYLOSIS. Antonio Azevedo presents to the | | | fluoroscopy [...] multiple images from different angles and by sensory and motor | | | stimulation. The patient felt sensory stimulation at each site at | | | approximately 0.4 to 0.6 volts. We were able to obtain muscle | | | contraction with motor stimulation at all of the sites. The needles | | | were adjusted until the patient did not have any symptoms down into | | | the legs with any motor or sensory stimulation. Prior to performing | | | the radiofrequency ablation at each site, a small amount of lidocaine | | | was infused, then ablation was conducted at each site for 90 seconds | | | at 80 degrees Celsius. The needles were slightly readjusted and a | | | second burn was performed at each site. At the conclusion of the | | | procedure approximately 2.5 mg of dexamethasone was injected into each | | | site along with 0.5 mL of 0.5% ropivacaine for post procedure | | | neuritis prophylaxis. The needles were then removed and the areas were | | | bandaged. The procedure was performed using conscious sedation with | | | 2.5 mg of Versed and 200 mcg fentanyl supervised by ut and | | | administered by the radiology nurse during the procedure according to | | | [facility] conscious sedation protocol. At the conclusion of the | | | procedure the patient was transferred to recovery in stable condition. | | | The patient was given verbal as well as written followup instructions | | | post procedure. I personally performed the procedure | | | above.Sedation start time: 13:31Sedation end time: 14:46Estimated | | | blood loss: MinimalComplications: NoneFindings: As | | | expectedAnesthesia: Local 1% Lidocaine, Versed and Fentanyl | | | | | | | | |I personally performed the procedure above. | | |Sedation start time: 13:31 | | |Sedation end time: 14:46 | | |Estimated blood loss: Minimal | | |Complications: None | | |Findings: As expected | | |Anesthesia: Local 1% Lidocaine, Versed and Fentanyl | | | | | + + + + +---------+ + + | Performing | Address | City[facility]State[facility] | Phone Number | | Organization | | | | + +---------+ + + | [facility] | | | | + +---------+ + + documented in this encounter Visit Diagnoses + + | Diagnosis | + + | Spondylosis without myelopathy or radiculopathy, lumbar region - Primary | + + documented in this encounter"
--- OUTSIDE RECORDS SUMMARY | ~2019-02-23 | XMS | Encounter Summary ---
Demographics + + + | Address | [address] | | | [place] [address] | + + + | Home Phone | | + + + | Preferred Language | Unknown | + + + | Marital Status | | + + + | Sabianist Affiliation | Unknown | + + + | Race | Unknown | + + + | Ethnic Group | Unknown | + + + Author + + + | Author | [facility] | | | and [place] | + + + | Organization | [facility] | | | and [...] Team Providers + +------+ + | Care Insole Presser Name | Role | Phone | + +------+ + | Kait Velazquez MD | PCP | | + +------+ + Encounter Details +--------+ + + + + | Date | Type | Department | Care Team | Description | +--------+ + + + + | 05/20/ | Hospital | [facility] | Tahir Handley | Lumbar facet | | 2019 | Encounter | [facility] | MD Joel [address] | arthropathy; Lumbar | | | | [address] | [place], [place] | spondylosis; DDD | | | | [place], [place] | [address] | (degenerative disc | | | | [address] | | disease), lumbar | | | | [phone] | | | +--------+ + + + [...] all the medicines you take. This includes zdlz-auc-frchsyk medicines such as ibupro fen. It also [...] by the pain medicine Date Last Reviewed: 05/17/201619991606-0631 [employer] [place] [address], [place] [address]. All righ ts reserved. This information is [...] neurotomy, or rhizomotomy. How to say it RGK-aio-ah-FRMZ-hloo-qjy frp-exn-LAT-alexandrea Why radiofrequency denervation is done This treatment [...] up to 4 months Date Last Reviewed: 09/15/201519998563-5612 [employer]. [address] [place] [address], [place] [address]. All righ ts reserved. This information is [...] 1:33 PM | arthropathy | | | ([address]) | | PST | | | + [...] | | mL 3 mL, Other, ONCE, 05/20/18 | | 19 2:30 | | | [...] | | (Comment | | Intradermal, ONCE, 05/20/18 at | | PM PST | | | ) | | 1330, For 1 dose | | | | | | + +-------+ +--------+---+ + +---+---+ | | | +---+---+ + +-------+ +------+---+---+ | midazolam (VERSED) 1 mg/mL | Given | 05/20/19 | 1 mg | | | | injection PRN, Starting Sun | | 19 2:13 | | | [...]
--- OUTSIDE RECORDS SUMMARY | ~2019-02-23 | XMS | Encounter Summary ---
Demographics + + + | Address | [address] | | | [place] [address] | + + + | Home Phone | | + + + | Preferred Language | Unknown | + + + | Marital Status | | + + + | Jain Affiliation | Unknown | + + + | Race | Unknown | + + + | Ethnic Group | Unknown | + + + Author + + + | Author | [facility] | | | and [place] | + + + | Organization | [facility] | | | [...] Team Providers + +------+ + | Care Freelance Interpreter/Translator Name | Role | Phone | + [...] [facility] | | | | | Spondylosis | Ender, | [address] | | | | | without | Tahir Maldonado MD | [place], | | | | | myelopathy | [address] | [place] | | | | | or | [place] | [address] | | | | | radiculopath | [place], [place] | Phone: | | | | | y, lumbar | [address] | [phone] | | | | | region | Phone: | Fax: | | | | | Procedures | [phone] | [phone] | | | | | SC INJ | Fax: | | | | | | DX/THER AGNT | [phone] | | | | | | PARAVERT | | | | | | | FACET JOINT, | | | | | | | LUMBAR/SAC, | | | | | | | 1ST LEVEL | | | | | | | SC INJ | | | | | | | DX/THER AGNT | | | | | | | PARAVERT | | | | | | | FACET JOINT, | | | | | | | LUMBAR/SAC, | | | | | | | 2ND LEVEL | | | | | | | APPT 09/11 | | | | | | | Bilateral L3 | | | | | | | and L4 mbb | | | | | | | and L5 | | | | | | | dorsal ramus | | | | | | | block #2 | | | +--------+--------+ + + + + Encounter Details +--------+ + + + + | Date | Type | Department | Care Team | Description | +--------+ + + + + | 09/11/ | Hospital | [facility] | Tahir Handley | Spondylosis without | | 2018 | Encounter | MED CTR XRAY [address] | T, [address] | myelopathy or | | | | [address] [place] | [place] | radiculopathy, | | | | [place] [address] | [address] | lumbar region | | | | [phone] | | | | | | | Cryptoanalysis TeacherJames | | +--------+ + + + + [...] + | Blood Pressure | 155/72 | 09/11/2017 3:10 PM | | | | | PDT [...] | [place] FACET INJECTION | Routin | 09/11/2017 | Spondylosis | Results for this | | LUMBAR SACRAL | e | 2:47 PM | without myelopathy | procedure are in the | | | | PDT | or radiculopathy, | results section. | | | | | lumbar region [...] Spondylosis without myelopathy or radiculopathy, lumbar region | + + documented in this encounter Administered Medications + +--------+ +-------+------+ + | Medication Order | MAR | Action | Dose | Rate | Site | | | Action | Date | | | | + +--------+ +-------+------+ + | lidocaine buffered 1.3% | Given | 09/12/19 | 6 mLs | | Other | | injection 6 mL 6 mL, | | 18 2:54 | | | (Comment | | Intradermal, ONCE, Maegan 09/11/17 at | | PM PDT | | | ) | | 1500, For 1 dose | | | | | | + +--------+ +-------+------+ + +---+---+ | | | +---+---+ + +-------+ +-------+---+---+ | ropivacaine (NAROPIN) 5 mg/mL | Given | 09/12/19 | 3 mLs | | | | (0.5%) injection 3 mL 3 mL, | | 18 2:57 | | | | | PERINEURAL, ONCE, 09/11/17 at | | PM PDT | | | | | 1500, For 1 dose | | | | | | + +-------+ +-------+---+---+ +---+---+ | | | +---+---+ documented in this encounter"
--- OUTSIDE RECORDS SUMMARY | ~2019-02-23 | XMS | Encounter Summary ---
Demographics + + + | Address | [address] | | | [place] [address] | + + + | Home Phone [...] Team Providers + +------+ + | Care Brusher Operator Name | Role | Phone | + +------+ + | Kait Velazquez MD | PCP | | + +------+ + Reason for Visit + + + | Reason | Comments | + + + | Triage To ED | Severe Calf cramping | + + + Encounter Details +--------+ + + + + | Date | Type | Department | Care Team | Description | +--------+ + + + + | 02/14/ | Telephone | [facility] | Sanjay Finnegan MD | Triage To ED (Severe | | 2019 | | Neurosurgery at 7th | [address] | Calf cramping ) | | | | [address] | [address] | | | | | [address] | [place] [address] | | | | | [place], [place] | [phone] | | | | | [address] | | | | | | [phone] | | | +--------+ + + + [...] Kelly | | | | | | [place], [place] | | | | | | [address] | | | | | | | | +--------+---------+ + + + documented as of this encounter Visit Diagnoses Not on filedocumented in this encounter"
--- OUTSIDE RECORDS SUMMARY | ~2019-02-23 | XMS | Encounter Summary ---
Demographics + + + | Address | [address] | | | [place] [address] | + + + | Home Phone | | + + + | Preferred Language | Unknown | + + + | Marital Status | | + + + | Nondenominational Affiliation | Unknown | + + + | Race | Unknown | + + + | Ethnic Group | Unknown | + + + Author + + + | Author | [facility] | | | and [place] | + + + | Organization | [facility] | | | [...] Team Providers + +------+ + | Care Stock Checkerer Name | Role | Phone | + [...] Raffy BERNABE | | | | | [phone] | [place] [address] | | +--------+ + + + + [...] for comparison only - no result from [facility]. | [facility] | + + + + +---------+ + + | Performing | Address | City/State/Zipcode | Phone Number | | Organization | | | | + +---------+ + + | [facility] | | | | + +---------+ + + documented in this encounter Visit Diagnoses Not on filedocumented in this encounter"
--- OUTSIDE RECORDS SUMMARY | ~2019-02-23 | XMS | Encounter Summary ---
Demographics + + + | Address | [address] | | | [place] [address] | + + + | Home Phone | | + + + | Preferred Language | Unknown | + + + | Marital Status | | + + + | Yazdanism Affiliation | Unknown | + + + [...] Team Providers + +------+ + | Care Road Grader Operator Name | Role | Phone | [...] | Lumbar | En[place], | [address] | | | | | spondylosis | Tahir Maldonado MD | [place], | | | | | Lumbar | [address] | [place] | | | | | Spondylosis | [place] | [address] | | | | | Procedures | [place], [place] | Phone: | | | | | [place] INJ | [address] | [phone] | | | | | DX/THER AGNT | Phone: | Fax: | | | | | PARAVERT | [phone] | [phone] | | | | | FACET JOINT, | Fax: | | | | | | LUMBAR/SAC, | [phone] | | | | | | 1ST LEVEL | | | | | | | NM INJ | | | | | | [...] + + | 08/31/ | Hospital | [facility] | Carey, | Lumbar facet | | 2018 | Encounter | MED CTR XRAY [address] | BALA [address]en [address] | arthropathy (HCC); | | | | [address] [place] | [facility], | DDD (degenerative | | | | [place] [address] | [place] [address] | disc disease), | | | | [phone] | [phone] | lumbar; Lumbar | | | | | | spondylosis | | | | | Attendant Lodging FacilitiesJames | | +--------+ + + + + [...]
--- OUTSIDE RECORDS SUMMARY | ~2019-02-23 | XMS | Encounter Summary ---
Demographics + + + | Address | [address] | | | [place] [address] | + + + | Home Phone | | + + + | Preferred Language | Unknown | + + + | Marital Status | | + + + | Protestant Affiliation | NRP | + + + [...] Team Providers + +------+ + | Care Peripheral Edp Equipment Operator Name | Role | Phone | [...] | | | | [address] | [place] [address] | | | | | [place], [place] | [phone] | | | | | [address] | | | | | | [phone] | | | +--------+ + + + [...] Leticia | | | | | | [place], [place] | | | | | | [address] | | | | | | | [...]
--- OUTSIDE RECORDS SUMMARY | ~2019-02-23 | XMS | Encounter Summary ---
Demographics + + + | Address | [address] | | | [place] [address] | + + + | Home Phone | | + + + | Preferred Language | Unknown | + + + | Marital Status | | + + + | Anabaptist Affiliation | NRP | + + + | Race | White | + + + | Ethnic Group | Not or | + + + Author + + + | Author | [facility] | + + + | Organization | [facility] | + + + | Address | Unknown | + + + | Phone | Unavailable | + + + Support + + +---------+ + | Name | Relationship | Address | Phone | + + +---------+ + | Lara Azevedo | ECON | Unknown | | + + +---------+ + Care Team Providers + +------+ + | Care Dry Lumber Grader Name | Role | Phone | + [...] [id number] | | | | | | [place] [facility] | | | | | | and Healing, | | | | | | [facility], [facility] | | | | | | [place], [place] | | | | | | [address] | | | | | | [phone] | | | +--------+ + + + [...] Kelly | | | | | | [place], [place] | | | | | | [address] | | | | | | | [...] skin, | | | | | | [id number]. The surgical | | | | | [...] skin, | | | | | | [id number]. 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
--- OUTSIDE RECORDS SUMMARY | ~2019-02-23 | XMS | Encounter Summary ---
Demographics + + + | Address | [address] | | | [place] [address] | + + + | Home Phone | | + + + | Preferred Language | Unknown | + + + | Marital Status | | + + + | Zoroastrianism Affiliation | NRP | + + + [...] Team Providers + +------+ + | Care Senior Game Developer Name | Role | Phone | + [...] | | | | | disease | [place], [facility] [address] | | | | | Lumbar | [place] [address] | [place], [place] | | | | | foraminal | Phone: | [phone] | | | | | stenosis | [phone] | Phone: | | | | | Other | | [phone] | | | | | idiopathic | | Fax: | | | | | scoliosis, | | [phone] | | | | | lumbar | [...] | | | | | | | MCAT TUTOR | | | | | | | OR LUMBAR | | | | | | | SPINE FUSN | | | | | | | INCLUDE | | | | | | | LAMINECTOMY | | | | | | | AND OR | | | | | | | DISCECTOMY | | | | | | | OR SPINE | | | | | | | FUSN,POST | | | | | | | TECH,EA | | | | | | | ADDNL SGMT | | | | | | | OR LUMBAR | | | | | | | SPINE | | | | | | | FUSION,ANTER | | | | | | | APPRCH OR | | | | | | | INSERT VERT | | | | | | | FIX | | | | | | | DEV,POST,3-6 | | | | | | | SGMTS OR | | | | | | | LAMINEC/FACE | | | | | | | TECT/FORAMIN | | | | | | | ,LUMBAR OR | | | | | | | LAMINEC/FACE | | | | | | | TECT/FORAMIN | | | | | | | ,EACH ADDNL | | | | | | | OR SPIN | | | | | | | BONE | | | | | | | ALLOGRFT | | | | | | | MORSELIZED | | | | | | | OR SCAN PROC | | | | | [...] | | | | | | [address] | | | | | | | [place], [place] | | | | | | | [address] | | | | | | | Phone: | | | | | | | [phone] | | | | | | | Fax: | | | | | | | [phone] | + +--------+ + + + + [...] | | | | [address] | [place] [address] | foraminal stenosis; | | | | [place], [place] | [phone] | Other idiopathic | | | | [address] | | scoliosis, lumbar | | | | [phone] | | region; Other | | | [...] 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 Sanjay Finnegan MD [place] [address] [address] NEUROSURGERY HISTORY AND PHYSICAL EXAMINATION CHIEF COMPLAINT: [...] has no apparent deficits with short or care home memory. CRANIAL NERVES: II: Acuity is intact. [...] Intrinsics 5 5 Ulnar Intrinsics 5 5 Club Director Strength 5 5 Hip Flexion 5 5 [...] | 2018 | Visit | | BALA [address] [place] [address] Avmario | | | | | | [place], [place] | | | | | | [address] | | | | | | | [...]
--- OUTSIDE RECORDS SUMMARY | ~2019-02-23 | XMS | Encounter Summary ---
Demographics + + + | Address | [address] | | | [place] [address] | + + + | Home Phone | | + + + | Preferred Language | Unknown | + + + | Marital Status | | + + + | Gnosticist Affiliation | NRP | + + + [...] | | | | [address] | [place] [address] | | | | | [place], [place] | [phone] | | | | | [address] | | | | | | [phone] | | | +--------+ + + + [...] Leticia | | | | | | [place], [place] | | | | | | [address] | | | | | | | [...]
--- OUTSIDE RECORDS SUMMARY | ~2019-02-23 | XMS | Encounter Summary ---
Demographics + + + | Address | [address] | | | [place] [address] | + + + | Home Phone [...] Team Providers + +------+ + | Care Briar Shop Supervisor Name | Role | Phone | [...] [address] | | | | | [place], | [place] [facility], | | | | | [place] [address] | [place] [address] | | | | | [phone] | [phone] | | | | | | | [...]
--- OUTSIDE RECORDS SUMMARY | ~2019-02-23 | XMS | Encounter Summary ---
Demographics + + + | Address | [address] | | | [place] [address] | + + + | Home Phone | | + + + | Preferred Language | Unknown | + + + | Marital Status | | + + + | Adventism Affiliation | Unknown | + + + | Race | Unknown | + + + | Ethnic Group | Unknown | + + + Author + + + | Author | [facility] | | | and [place] | + + + | Organization | [facility] | | | [...] Team Providers + +------+ + | Care Instrument Lens Grinder Name | Role | Phone | + [...] | MRI Lumbar | [place], | [address] | | | | | Spine wo | [place] [address] | Phone: | | | | | Contrast | Phone: | [phone] | | | | | Let Pt. | [phone] | Fax: | | | | | know when | Fax: | [phone] | | | | | auth. | [phone] | | +--------+--------+ + + + + [...] | (Primary Dx) | | | | [place], | [address] [place] | | | | | [place] [address] | [place] [address] | | | | | [phone] | [phone] | | | | | | | [...]
--- OUTSIDE RECORDS SUMMARY | ~2019-02-23 | XMS | Encounter Summary ---
Demographics + + + | Address | [address] | | | [place] [address] | + + + | Home Phone [...] Team Providers + +------+ + | Care Weaver Tire Cord Name | Role | Phone | + +------+ + | Kait Velazquez MD | PCP | | + +------+ + Reason for Referral Diagnostic Testing (Urgent) + +--------+ + + + + | Status | Reason | Specialty | Diagnoses / | Referred By | Referred To | | | | | Procedures | Contact | Contact | + +--------+ + + + + | Authorized | | Radiology | Diagnoses | Sanjay Finnegan | | | | | | S/P lumbar | MD [address] | | | | | | fusion | [address] | | | | | | Procedures | [address] | | | | | | MRI SPINE | [place], | | | | | | LUMBAR WWO | [place] [address] | | | | | | CONTRAST | Phone: | | | | | | | [phone] | | + +--------+ + + + + Encounter Details +--------+ + + + + | Date | Type | Department | Care Team | Description | +--------+ + + + + | 02/19/ | Telephone | [facility] | Sanjay Finnegan MD | | | 2019 | | Neurosurgery at 7th | [address] | | | | | [address] | [address] | | | | | [address] | [place] [address] | | | | | [place], [place] | [phone] | | | | | [address] | | | | | | [phone] | | | +--------+ + + + [...] Kelly | | | | | | [place], [place] | | | | | | [address] | | | | | | | | +--------+---------+ + + + + +---------+--------+ + + | Name | Type | Priori | Associated Diagnoses | Order Schedule | | | | ty | | | + +---------+--------+ + + | MRI SPINE LUMBAR WWO | Imaging | Urgent | S/P lumbar fusion | Expected: | | CONTRAST | | | | 02/20/2019, Expires: | | | | | | 03/22/2020 | + +---------+--------+ + + | X-RAY SPINE | Imaging | Routin | S/P lumbar fusion | Expected: | | LUMBOSACRAL 2 VIEWS | | e | | 02/20/2019, Expires: | | | | | | 03/22/2020 | + +---------+--------+ + + documented as of this encounter Visit Diagnoses + + | Diagnosis | + + | S/P lumbar fusion - Primary Arthrodesis status | + + documented in this encounter"
--- OUTSIDE RECORDS SUMMARY | ~2019-02-23 | XMS | Encounter Summary ---
Demographics + + + | Address | [address] | | | [place] [address] | + + + | Home Phone [...] Team Providers + +------+ + | Care Lead Supply Worker Name | Role | Phone | + +------+ + | Kait Velazquez MD PCP | | + +------+ + Encounter Details +--------+--------+ + + + | Date | Type | Department | Care Team | Description | +--------+--------+ + + + | 10/10/ | Travel | | | | | [...] Kelly | | | | | | [place] | | | | | | [address] | | | | | | | | +--------+---------+ + + + documented as of this encounter Visit Diagnoses Not on filedocumented in this encounter"
--- OUTSIDE RECORDS SUMMARY | ~2019-02-23 | XMS | Encounter Summary ---
Demographics + + + | Address | [address] | | | [place] [address] | + + + | Home Phone [...] Team Providers + +------+ + | Care Pig Breeder Name | Role | Phone | + [...] Ave | | | | | Ave [place], [place] | [place] [address] | | | | | [address] | [phone] | | +--------+ + + + + [...] Kelly | | | | | | [place], [place] | | | | | | [address] | | | | | | | [...] Ambriz MD | | + + + documented [...] | | | | at 0715, Until 02/03/19 at | | | | | [...] | mcg/kg/m | | | | Starting Sun02/03/19 at 1215, | | PM PDT | [...] 1:00 | | | | | Starting 02/03/19 at 1136, | | PM PDT | [...]
--- OUTSIDE RECORDS SUMMARY | ~2019-02-23 | XMS | Encounter Summary ---
Demographics + + + | Address | [address] | | | [place] [address] | + + + | Home Phone | | + + + | Preferred Language | Unknown | + + + | Marital Status | | + + + | Rastafari Affiliation | Unknown | + + + | Race | Unknown | + + + | Ethnic Group | Unknown | + + + Author + + + | Author | [facility] | | | and [place] | + + + | Organization | [facility] | | | [...] Team Providers + +------+ + | Care Denture Contour Wire Specialist Name | Role | Phone | + +------+ + | Kait Velazquez MD | PCP | | + +------+ + Encounter Details +--------+ + + + + | Date | Type | Department | Care Team | Description | +--------+ + + + + | 05/20/ | Hospital | [facility] | Tahir Handley | Lumbar facet | | 2019 | Encounter | MED CTR IR INTRA OP | MD Joel [address] | arthropathy; Lumbar | | | | [address] | [place], [place] | spondylosis; DDD | | | | [place], [place] | [address] | (degenerative disc | | | | [address] | | disease), lumbar | | | | [phone] | | | +--------+ + + + [...] all the medicines you take. This includes bnbc-wzb-rujxdoz medicines such as ibupro fen. It also [...] by the pain medicine Date Last Reviewed: 05/17/201619995334-5653 [employer]. [address] [place] [address], [place] [address]. All righ ts reserved. This information is [...] neurotomy, or rhizomotomy. How to say it FUF-cgk-al-ILVT-dvfe-rpw jst-gzj-UKO-alexandrea Why radiofrequency denervation is done This treatment [...] up to 4 months Date Last Reviewed: 09/15/201519990619-5580 [employer]. [address] [place] [address], [place] [address]. All righ ts reserved. This information is [...] 1:33 PM | arthropathy | | | ([id number]) | | PST | | | + [...]
--- OUTSIDE RECORDS SUMMARY | ~2019-02-23 | XMS | Encounter Summary ---
Demographics + + + | Address | [address] | | | [place] [address] | + + + | Home Phone | | + + + | Preferred Language | Unknown | + + + | Marital Status | | + + + | Pentecostal Affiliation | Unknown | + + + | Race | Unknown | + + + | Ethnic Group | Unknown | + + + Author + + + | Author | [facility] | | | and [place] | + + + | Organization | [facility] | | | [...] Team Providers + +------+ + | Care Food Tester Name | Role | Phone | + [...] | Medication Question | | | | [place], | [place], [place] | | | | | [place] [address] | [address] | | | | | [phone] | | | +--------+ + + + [...]
--- OUTSIDE RECORDS SUMMARY | ~2019-02-23 | XMS | Encounter Summary ---
Demographics + + + | Address | [address] | | | [place] [address] | + + + | Home Phone | | + + + | Preferred Language | Unknown | + + + | Marital Status | | + + + | Holiness Affiliation | Unknown | + + + | Race | Unknown | + + + | Ethnic Group | Unknown | + + + Author + + + | Author | [facility] | | | and [place] | + + + | Organization | [facility] | | | [...] Team Providers + +------+ + | Care Cupboard Builder Name | Role | Phone | + +------+ + | Kait Velazquez MD | PCP | | + +------+ + Reason for Visit Evaluate & Treat (Routine) + + + [...] Hypercoagula | [address] | | | | | ble [place] | [address] | | | | | (HCC) | [address] [place] | [place], | | | | | | [place] | [place] [address] | | | | | | [address] | Phone: | | | | | | Phone: | [phone] | | | | | | [phone] | Fax: | | | | | | Fax: | [phone] | | | | | | [phone] | | + + + + + + + Encounter Details +--------+ + + + + | Date | Type | Department | Care Team | Description | +--------+ + + + + | 10/30/ | Hospital | [facility] | Mahin Marks, | Chronic deep vein | | 2019 | Encounter | [facility] | [address] | thrombosis (DVT) of | | | | [facility] [address] [place], | femoral vein of left | | | | [address] [place] | [place] [address] | lower extremity | | | | [place] [address] | [phone] | (HCC) (Primary Dx); | | | | [phone] | | Chronic atrial | | | | | | fibrillation (HCC); | | | | | | Anticoagulant | | | | | | long-term use | +--------+ + + + + Social [...] + + + | Blood Pressure | 127/67 | 10/30/2018 2:45 PM | | | | | PDT | | + + + + + | Pulse | 80 | 10/30/2018 2:45 PM | | | [...] + + + | Oxygen Saturation | 94% | 10/30/2018 2:45 PM | | | | | PDT | | + + + + + | Inhaled Oxygen | - | - | | | Concentration | | | | + + + + + | Weight | 124 kg (273 lb 5.9 | 10/30/2018 2:45 PM | | | | oz) | PDT | | + + + + + | Height | - | - | | + + + + + | Body Mass Index | 40.37 | 10/11/2018 12:36 PM | | | | | PDT | | + + + + + documented in this encounter Medications [...] +---------+ + + | ezetimibe (ZETIA) | take 1 tablet by | | 0 | 10/31/19 | | | 10 mg tablet | mouth once daily | | | 19 | 9 | + + + +---------+ + + | ezetimibe (ZETIA) | Take 10 mg by mouth | | 0 | | | | 10 mg tablet | Daily. | | | | 9 | + + + +---------+ [...] | + +--------+ + + + | HYPERCOAG CONSULT, | Routin | 10/30/2018 | Chronic deep vein | Results for this | | EXTENDED PANEL | e | 3:24 PM | thrombosis (DVT) of | procedure are in the | | | | PDT | femoral vein of left | results section. | | | | | lower extremity | | | | | | (HCC) | | + +--------+ + + + | FACTOR Nasrin RICH | Routin | 10/30/2018 | Chronic deep vein | Results for this | | MUTATION | e | 3:24 PM | thrombosis (DVT) of | procedure are in the | | | | PDT | femoral vein of left | results section. | | | | | lower extremity | | | | | | (HCC) | | + +--------+ + + + | CBC WITH | STAT | 10/30/2018 | Chronic deep vein | Results for this | | DIFFERENTIAL | | 3:24 PM | thrombosis (DVT) of | procedure are in the | | | | PDT | femoral vein of left | results section. | | | | | lower extremity | | | | | | (HCC) | | + +--------+ + + + | LABS - EXTERNAL SCAN | | 08/19/2018 | | Results for this | | | | 12:00 AM | | procedure are in the | | | | PDT | | results section. | + +--------+ + + + documented in this encounter Results Hypercoag Consult, Extended Panel (10/30/2018 3:24 PM PDT) + + + + + + | Component | Value | Ref Range | Performed | Pathologist | | | | | At | Signature | + + + + + + | HOMOCYSTEIN | 10.0Comment: | umol/L | REFERENCE | | | E, TOTAL | Homocysteine levels in | | [facility] | | | (REF) | patients >60 years | | - BKR | | | | increase | | | | | | 1-2umol/L.Reference | | | | | | Range:5.0 - 15.0 | | | | + + + + + + | Factor VIII | 220 (H)Comment: FVIII | % | REFERENCE | | | activity | activity can increase in | | [facility] | | | | a variety of | | - BKR | | | | clinicalsituations | | | | | | including normal | | | | | | , in samples | | | | | | drawn frompatients | | | | | | (particularly children) | | | | | | who are visibly stressed | | | | | | atthe time of | | | | | | phlebotomy, as acute | | | | | | phase reactants, or | | | | | | inresponse to certain | | | | | | drug therapies such as | | | | | | DDAVP.Persistently | | | | | | elevated FVIII activity | | | | | | is a risk factor | | | | | | forvenous thrombosis as | | | | | | well as recurrence of | | | | | | venousthrombosis. Risk | | | | | | is graded and increases | | | | | | with the degree | | | | | | ofelevation. Although | | | | | | elevated FVIII activity | | | | | | has beenidentified to | | | | | | cluster within families, | | | | | | a genetic basis forthe | | | | | | elevation has not yet | | | | | | been elucidated (Ciara To | | | | | | Haematol.2012; | | | | | | [phone]).Reference | | | | | | Range:57 - 163 | | | | + + + + + + | ANTITHROMBI | 124Comment: Direct oral | % | REFERENCE | | | N ACTIVITY | anticoagulants such as | | [facility] | | | | rivaroxaban, apixaban | | - BKR | | | | andedoxaban will lead to | | | | | | spuriously elevated | | | | | | antithrombinactivity | | | | | | levels possibly masking | | | | | | a deficiency.Reference | | | | | | Range:7 months and | | | | | | older: 75 - 135 | | | | + + + + + + | Protein C | 173Comment: Reference | % | REFERENCE | | | activity | Range:17 years and | | [facility] | | | | older: 73 - 180 | | - BKR | | | |17 years and older: 73 - 180 | | | | + + + + + + | Protein S | 134Comment: Reference | % | REFERENCE | | | Antigen, | Range:7 months and | | [facility] | | | Free | older: 57 - 157This test | | - BKR | | | | was developed and its | | | | | | performance | | | | | | characteristicsdetermine | | | | | | d by [facility]. It has not | | | | | | been cleared or | | | | | | approvedby the Food and | | | | | | Drug Administration. | | | | + + + + + + | aPTT, | 25.4Comment: This test | sec | REFERENCE | | | Patient | has not been validated | | [facility] | | | | for | | - BKR | | | | monitoringunfractionated | | | | | | heparin therapy. | | | | | | aPTT-based | | | | | | therapeuticranges for | | | | | | unfractionated heparin | | | | | | therapy have not | | | | | | beenestablished. | | | | | | Consider ordering | | | | | | Heparin | | | | | | anti-Xa(unfractionated). | | | | | | Reference Range:18 years | | | | | | and older: 22.9 - 30.2 | | | | + + + + + + | aPTT, | TNP | sec | REFERENCE | | | Patient/Con | Comment: | | [facility] | | | trol Mix | Testing Not Indicated | | - BKR | | | | Not indicated | | | | + + + + + + | APTT 1:1 | TNP | sec | REFERENCE | | | Saline | Comment: | | [facility] | | | | Testing Not Indicated | | - BKR | | | | Not indicated | | | | + + + + + + | LUPUS | CommentComment: Results | | REFERENCE | | | ANTICOAG | are interpreted as | | [facility] | | | INTERP | indeterminate for the | | - BKR | | | | presenceof a lupus | | | | | | anticoagulant (LA). Only | | | | | | one | | | | | | phospholipiddependent | | | | | | assay showed evidence of | | | | | | confirmation, with | | | | | | theDRVVT ratio falling | | | | | | just above the reference | | | | | | interval. Thistest may | | | | | | be falsely positive if | | | | | | the sample is | | | | | | collectedwhile the | | | | | | patient is on warfarin, | | | | | | direct Xa inhibitor, | | | | | | ordirect thrombin | | | | | | inhibitor therapy. Only | | | | | | persistent LA | | | | | | meetlaboratory | | | | | | diagnostic criteria for | | | | | | antiphospholipidsyndrome | | | | | | . To confirm or refute | | | | | | the presence of an LA | | | | | | and todetermine | | | | | | persistence, repeat | | | | | | testing in 12 or more | | | | | | weeksis recommended. | | | | | | Ideally, repeat testing | | | | | | should be performedin | | | | | | the absence of | | | | | | anticoagulant therapy. | | | | | | All | | | | | | DIEGO-basedantiphospholi | | | | | | pid antibodies evaluated | | | | | | are normal. | | | | | | Pleasecontact [facility] | | | | | | Coagulation if further | | | | | | clarification isneeded. | | | | + + + + + + | Protein C | 2.7Comment: The APCR | ratio | REFERENCE | | | Resistance, | result may be falsely | | [facility] | | | Activated | increased (masking | | - BKR | | | | anabnormal, low APCR | | | | | | result) in patients on | | | | | | direct Xainhibitor | | | | | | (e.g., rivaroxaban, | | | | | | apixaban, edoxaban) or | | | | | | adirect thrombin | | | | | | inhibitor (e.g., | | | | | | dabigatran) | | | | | | anticoagulanttherapy due | | | | | | to assay interference | | | | | | by these drugs.Reference | | | | | | Range:2.2 - 3.5 | | | | + + + + + + | dRVVT | 68.9 (H) | sec | REFERENCE | | | | Comment: | | [facility] | | | | Reference Range: | | - BKR | | | | <= 47.0 | | | | + + + + + + | dRVVT | 45.3 | sec | REFERENCE | | | CONFIRMATIO | | | [facility] | | | N | | | - BKR | | + + + + + + | dRVVT, Mix | 1.4 (H)Comment: Testing | ratio | REFERENCE | | | ratio | while the patient is on | | [facility] | | | | anticoagulant | | - BKR | | | | therapy,including | | | | | | warfarin, dabigatran, or | | | | | | a direct Xa inhibitor | | | | | | maycause a false | | | | | | positive | | | | | | result.Reference | | | | | | Range:0.8 - 1.2 | | | | + + + + + + | Hex Phosph | 7Comment: This value is | sec | REFERENCE | | | Test | NEGATIVE.This is a | | [facility] | | | | qualitative assay and is | | - BKR | | | | therefore reported | | | | | | aspositive for lupus | | | | | | anticoagulant or | | | | | | negative. | | | | | | Thequantitative value | | | | | | is provided as an aid in | | | | | | diagnosis.Reference | | | | | | Range:0 - 11 | | | | + + + + + + | Cardiolipin | <10Comment: Reference | GPL | REFERENCE | | | AB IgG | Range:Negative: | | [facility] | | | | <15Indeterminate: 15 - | | - BKR | | | | 20Low to medium | | | | | | positive: >20 - 80High | | | | | | positive: >80 | | | | | |High positive: >80 | | | | + + + + + + | Cardiolipin | 16Comment: Reference | MPL | REFERENCE | | | AB IgM | Range:Negative: | | [facility] | | | | <13Indeterminate: 13 - | | - BKR | | | | 20Low to medium | | | | | | positive: >20 - 80High | | | | | | positive: >80 | | | | | |High positive: >80 | | | | + + + + + + | BETA 2 | <10Comment: The | SGU | REFERENCE | | | GLYCO 1 IGG | reference interval | | [facility] | | | | reflects a 3SD or 99th | | - BKR | | | | percentileinterval, | | | | | | which is thought to | | | | | | represent a | | | | | | potentiallyclinically | | | | | | significant result in | | | | | | accordance with | | | | | | theInternational | | | | | | Consensus Statement on | | | | | | the | | | | | | classificationcriteria | | | | | | for definitive | | | | | | antiphospholipid | | | | | | syndrome (APS). JThromb | | | | | | [id number]:[id number].Refer | | | | | | ence Range:Negative: <21 | | | | + + + + + + | BETA 2 | <10Comment: The | [facility] | REFERENCE | | | GLYCO 1 IGM | reference interval | | [facility] | | | | reflects a 3SD or 99th | | - BKR | | | | percentileinterval, | | | | | | which is thought to | | | | | | represent a | | | | | | potentiallyclinically | | | | | | significant result in | | | | | | accordance with | | | | | | theInternational | | | | | | Consensus Statement on | | | | | | the | | | | | | classificationcriteria | | | | | | for definitive | | | | | | antiphospholipid | | | | | | syndrome (APS). JThromb | | | | | | [id number]:[id number].Refer | | | | | | ence Range:Negative: <33 | | | | + + + + + + | Beta-2 | <10Comment: The | CHARLY | REFERENCE | | | Glyco 1 IgA | reference interval | | [facility] | | | | reflects a 3SD or 99th | | - BKR | | | | percentileinterval.Refer | | | | | | ence Range:Negative: <26 | | | | | |Negative: <26 | | | | + + + + + + | Factor II, | CommentComment: G-G | | REFERENCE | | | Ag | (Normal-Normal)No | | [facility] | | | | prothrombin [id number] | | - BKR | | | | mutation present. | | | | + + + + + + | Interpretat | CommentComment: While | | REFERENCE | | | ion | the patient does not | | [facility] | | | | possess this risk | | - BKR | | | | factor, otherthrombotic | | | | | | risk factors may be | | | | | | detected through | | | | | | systematicclinical | | | | | | laboratory analysis. | | | | + + + + + + | Methodology | CommentComment: Patient | | REFERENCE | | | : | DNA was evaluated for | | [facility] | | | | the factor II gene | | - BKR | | | | mutationat nucleotide | | | | | | [address] using PCR | | | | | | amplification followed | | | | | | byrestriction analysis | | | | | | and gel electrophoresis. | | | | + + + + + + | Comments: | CommentComment: | | REFERENCE | | | | Simultaneous Risks: If a | | [facility] | | | | patient possesses two | | - BKR | | | | or morecongenital or | | | | | | acquired thrombophilic | | | | | | risk factors, the riskof | | | | | | thrombosis may rise to | | | | | | more than the sum of the | | | | | | riskratios for the | | | | | | individual risk factors. | | | | | | For instance, | | | | | | acombination of the | | | | | | prothrombin [id number] | | | | | | mutation and thefactor V | | | | | | Leiden mutation may | | | | | | confer an increase | | | | | | inthrombotic risk in the | | | | | | range of 20-30 | | | | | | fold.Recommendations for | | | | | | Genetic Counseling: The | | | | | | prothrombingene | | | | | | mutation is an inherited | | | | | | characteristic. If | | | | | | themutation is present, | | | | | | we recommend that the | | | | | | patient andtheir family | | | | | | consider genetic | | | | | | counseling to | | | | | | obtainadditional | | | | | | information on | | | | | | inheritance and to | | | | | | identify otherfamily | | | | | | members at risk.Testing | | | | | | Characteristics: Genetic | | | | | | testing | | | | | | providesexceptionally | | | | | | high sensitivity and | | | | | | specificity. | | | | | | Inaccurateresults are | | | | | | limited to rare | | | | | | polymorphisms in primer | | | | | | bindingsites and to | | | | | | misidentification of | | | | | | specimens by | | | | | | collectorsor laboratory | | | | | | personnel. This assay | | | | | | detects only | | | | | | theprothrombin [id number] | | | | | | mutation and does not | | | | | | detect othergenetic | | | | | | abnormalities.This test | | | | | | was developed and its | | | | | | performance | | | | | | characteristicsdetermine | | | | | | d by [email or web address]. It has not | | | | | | been cleared or | | | | | | approvedby the Food and | | | | | | Drug | | | | | | Administration.Reference | | | | | | s: Wai Brown, et al. Br J | | | | | | of Haem. | | | | | | 1996;98:907.Sid CORRAL, | | | | | | et al. Br J of Haem. | | | | | | 1996;98:353. | | | | | | Tiffanie-LaFreniere and | | | | | | McGlennen Mol.Diagn. | | | | | | 2000;6(3):201.Nelly | | | | | | J, et al. Thromb | | | | | | Haemost. | | | | | | 2000;86:809-16.Elly | | | | | | adrián Pedroza, et al. Thromb | | | | | | Haemost. 1998;82:1583. | | | | + + + + + + + + | Specimen | + + | Blood | + + + + + | Narrative | Performed At | + + + | Performed at: 01 - [facility] [address], | REFERENCE LAB | | [place], [place] [id number] Wallcovering Texturer: Vivek Crawford MD, Phone: | [place] | | [phone] | | + + + + + + + + | Performing | Address | City/State/Zipcode | Phone Number | | Organization | | | | + + + + + | REFERENCE LAB | [address] | [place], [place] [address] | [phone] | | [place] | [facility] | | | + + + + + Factor V Leiden Mutation (10/30/2018 3:24 PM PDT) + + + + + + | Component | Value | Ref Range | Performed | Pathologist | | | | | At | Signature | + + + + + + | FACTOR V | CommentComment: Result: | | REFERENCE | | | ACTIVITY | Negative (no mutation | | [facility] | | | | found)Factor V Leiden is | | - BKR | | | | a specific mutation | | | | | | ([id number]) in thefactor V | | | | | | gene that is associated | | | | | | with an increased risk | | | | | | ofvenous thrombosis. | | | | | | Factor V Leiden is more | | | | | | resistant toinactivation | | | | | | by activated protein C. | | | | | | As a result, factor | | | | | | Vpersists in the | | | | | | circulation leading to a | | | | | | mildhypercoagulable | | | | | | state. The Leiden | | | | | | mutation accounts for | | | | | | 90%- 95% of APC | | | | | | resistance. Factor V | | | | | | Leiden has been | | | | | | reportedin patients with | | | | | | deep vein thrombosis, | | | | | | pulmonary | | | | | | embolus,central retinal | | | | | | vein occlusion, cerebral | | | | | | sinus thrombosisand | | | | | | hepatic vein thrombosis. | | | | | | Other risk factors to | | | | | | beconsidered in the | | | | | | workup for venous | | | | | | thrombosis include | | | | | | [id number] mutation in | | | | | | the factor II | | | | | | (prothrombin) | | | | | | gene,protein S and C | | | | | | deficiency, and | | | | | | antithrombin | | | | | | deficiencies.Anticardiol | | | | | | ipin antibody and lupus | | | | | | anticoagulant | | | | | | analysismay be | | | | | | appropriate for certain | | | | | | patients, as well | | | | | | ashomocysteine levels. | | | | | | Contact your local | | | | | | [facility] forinformation | | | | | | on how to order | | | | | | additional testing if | | | | | | desired.Genetic | | | | | | counselors are available | | | | | | for health care | | | | | | providers to discuss | | | | | | results at | | | | | | [phone] | | | | | | [phone]).Methodology:DNA | | | | | | analysis of the Factor V | | | | | | gene was performed by | | | | | | allele-specificPCR. The | | | | | | diagnostic sensitivity | | | | | | and specificity is >99% | | | | | | for both.Molecular-based | | | | | | testing is highly | | | | | | accurate, but as in any | | | | | | laboratorytest, | | | | | | diagnostic errors may | | | | | | occur. All test results | | | | | | must be combinedwith | | | | | | clinical information for | | | | | | the most accurate | | | | | | interpretation.This test | | | | | | was developed and its | | | | | | performance | | | | | | characteristics | | | | | | determinedby [facility]. It | | | | | | has not been cleared or | | | | | | approved by the Food | | | | | | and | | | | | | DrugAdministration.Refer | | | | | | ences:Patricia Brown | | | | | | (1995). Clin Lab Med | | | | | | [phone].Elena | | | | | | Tristin, PhD, | | | | | | FACMGAngela Wheeler, | | | | | | PhD, FACMGPadma Brown | | | | | | Olga Colon, PhD, | | | | | | FACMGEstefanía Sweeney, PhD, | | | | | | FACMGSobeida Balderas, PhD, | | | | | | FACMGTom Garcia | | | | | | PhD, FACMG | | | | + + + + + + + + | Specimen | + + | Blood | + + + + + | Narrative | Performed At | + + + | Performed at: 01 - [facility] [address], | REFERENCE LAB | | [place], [place] [id number] Wallcovering Texturer: Vivek Crawford MD, Phone: | [place] | | [phone] | | + + + + + + + + | Performing | Address | City/State/Zipcode | Phone Number | | Organization | | | | + + + + + | REFERENCE LAB | [address] | [place] [address] | [phone] | | [place] | [facility] | | | + + + + + CBC with Differential (10/30/2018 3:24 PM PDT) + +-------+ + + + | Component | Value | Ref Range | Performed | Pathologist | | | | | At | Signature | + +-------+ + + + | WBC | 7.3 | 4.0 - 11.0 K/uL | [facility] - | | | | | | [facility]ATORY | | + +-------+ + + + | RBC | 5.09 | 4.30 - 5.70 | [facility] | | | | | M/uL | [facility] | | | | | | [facility] | | | | | | [facility] - | | | | | | LABORATORY | | + +-------+ + + + | Hemoglobin | 16.1 | 13.5 - 18.0 | [facility] | | | | | g/dL | [facility] | | | | | | [facility] | | | | | | [facility] - | | | | | | LABORATORY | | + +-------+ + + + | Hematocrit | 48.2 | 40.0 - 51.0 % | [facility] | | | | | | [facility] | | | | | | [facility] | | | | | | [facility] - | | | | | | LABORATORY | | + +-------+ + + + | MCV | 94.7 | 83.0 - 101.0 fL | [facility] | | | | | | [facility] | | | | | | [facility] | | | | | | [facility] - | | | | | | LABORATORY | | + +-------+ + + + | MCH | 31.6 | 28.0 - 35.0 pg | [facility] | | | | | | [facility] | | | | | | [facility] | | | | | | [facility] - | | | | | | LABORATORY | | + +-------+ + + + | MCHC | 33.4 | 32.0 - 36.0 | [facility] | | | | | g/dL | [facility] | | | | | | [facility] | | | | | | [facility] - | | | | | | LABORATORY | | + +-------+ + + + | RDW-CV | 13.0 | <15.0 % | [facility] | | | | | | [facility] | | [facility] | | | [facility] | | | | | | [facility] - | | | | | | LABORATORY | | + +-------+ + + + | RDW-SD | 45.1 | 35.1 - 46.3 fL | [facility] | | | | | | [facility] | | | | | | [facility] | | | | | | [facility] - | | | | | | LABORATORY | | + +-------+ + + + | Platelet | 171 | 140 - 440 K/uL | [facility] | | | Count | | | [facility] | | | | | | [facility] | | | | | | [facility] - | | | | | | LABORATORY | | + +-------+ + + + | MPV | 10.3 | 6.5 - 12.4 fL | [facility] | | | | | | [facility] | | | | | | [facility] | | | | | | [facility] - | | | | | | LABORATORY | | + +-------+ + + + | % | 54.2 | 45.0 - 82.0 % | [facility] | | | Neutrophils | | | [facility] | | | | | | [facility] | | | | | | [facility] - | | | | | | LABORATORY | | + +-------+ + + + | % | 30.4 | 20.0 - 45.0 % | [facility] | | | Lymphocytes | | | [facility] | | | | | | [facility] | | | | | | [facility] - | | | | | | LABORATORY | | + +-------+ + + + | % Monocytes | 9.7 | 4.0 - 12.0 % | [facility] | | | | | | [facility] | | | | | | [facility] | | | | | | [facility] - | | | | | | LABORATORY | | + +-------+ + + + | % | 4.9 | 0.0 - 5.0 % | [facility] | | | Eosinophils | | | [facility] | | | | | | [facility] | | | | | | C[facility] - | | | | | | LABORATORY | | + +-------+ + + + | % Basophils | 0.7 | 0.0 - 1.0 % | [facility] | | | | | | [facility] | | | | | | [facility] | | | | | | [facility] - | | | | | | LABORATORY | | + +-------+ + + + | % Immature | 0.1 | 0.0 - 0.4 % | [facility] | | | Granulocyte | | | [facility] | | | s | | | MEDICAL | | | | | | CENTER - | | | | | | LABORATORY | | + +-------+ + + + | Absolute | 3.96 | 1.80 - 8.50 | [facility] | | | Neutrophils | | K/uL | [facility] | | | | | | [facility] | | | | | | [facility] - | | | | | | LABORATORY | | + +-------+ + + + | Absolute | 2.22 | 0.60 - 3.20 | [facility] | | | Lymphocytes | | K/uL | [facility] | | | | | | [facility] | | | | | | [facility] - | | | | | | LABORATORY | | + +-------+ + + + | Absolute | 0.71 | 0.00 - 1.00 | [facility] | | | Monocytes | | K/uL | [facility] | | | | | | [facility] | | | | | | [facility] - | | | | | | LABORATORY | | + +-------+ + + + | Absolute | 0.36 | 0.00 - 0.40 | [facility] | | | Eosinophils | | K/uL | [facility] | | | | | | MED[facility] | | | | | | CENTER - | | | | | | LABORATORY | | + +-------+ + + + | Absolute | 0.05 | 0.00 - 0.10 | [facility] | | | Basophils | | K/uL | [facility] | | | | | | MEDICAL | | | | | | CENTER - | | | | | | LABORATORY | | + +-------+ + + + | Absolute | 0.01 | 0.00 - 0.03 | [facility] | | | Immature | | K/uL | [facility] | | | Granulocyte | | | MEDICAL | | | s | | | CENTER - | | | | | | LABORATORY | | + +-------+ + + + | % nRBC | 0 | 0 - 2 per 100 | [facility] | | | | | WBCs | [facility] | | | | | | MEDICAL | | | | | | CENTER - | | | | | | LABORATORY | | + +-------+ + + + | Absolute | 0.00 | 0.00 - 0.01 | [facility] | | | nRBC | | K/uL | [facility] | | | | | | MEDICAL [...] | + + + + + | [facility] | [address] | [place] | [phone] | | [facility] | | [id number] | | | - LABORATORY | | | | + + + + + LABS - EXTERNAL SCAN (08/19/2018 12:00 AM PDT) + + + | Narrative | Performed At | + + + | Ordered by an | | | unspecified provider. | | + + + documented in this encounter Visit Diagnoses + + | Diagnosis | + + | Chronic deep vein thrombosis (DVT) of femoral vein of left lower extremity (HCC) - | | Primary | + + | Chronic atrial fibrillation Atrial fibrillation | + + | Anticoagulant long-term use Encounter for long-term (current) use of anticoagulants | + + documented in this encounter"
--- OUTSIDE RECORDS SUMMARY | ~2019-02-23 | XMS | Encounter Summary ---
Demographics + + + | Address | [address] | | | [place] [address] | + + + | Home Phone | | + + + | Preferred Language | Unknown | + + + | Marital Status | | + + + | Sabianist Affiliation | Unknown | + + + | Race | Unknown | + + + | Ethnic Group | Unknown | + + + Author + + + | Author | [facility] | | | and [place] | + + + | Organization | [facility] | | | [...] Team Providers + +------+ + | Care Internet Cafe Manager Name | Role | Phone | [...] | (Primary Dx) | | | | [address], | [address] [place] | | | | | [place] [address] | [place] [address] | | | | | [phone] | [phone] | | | | | | | [...]
--- OUTSIDE RECORDS SUMMARY | ~2019-02-23 | XMS | Encounter Summary ---
Demographics + + + | Address | [address] | | | [place] [address] | + + + | Home Phone [...] Providers + +------+ + | Care Dry Wall Finisher Name | Role | Phone | + +------+ + | Kait Velazquez MD | PCP | | + +------+ + Reason for Visit + + + | Reason | Comments | + + + | Follow-up | Discuss options | + + + Encounter Details +--------+---------+ + + + | Date | Type | Department | Care Team | Description | +--------+---------+ + + + | 01/02/ | Office | [facility] [place] | Thomas Lawler | Lumbar facet | | 2017 | Visit | NEUROSURGERY [address] | [address] | arthropathy (HCC) | | | | [address] | [address] | (Primary Dx); Lumbar | | | | [place], [place] | [place] | radicular pain; | | | | [address] | [id number] | Lumbar spondylosis; | | | | [phone] | | Foraminal stenosis | | | | | | of lumbar region; | | | | | | Coronary artery | | | | | | disease involving | | | | | | [place] coronary | | | | | | artery of [place] | | | | | | heart without angina | | | | | | pectoris | +--------+---------+ + + + Social History [...] + + + | Blood Pressure | 105/65 | 01/02/2018 10:25 AM | | | | | PDT | | + + + + + | Pulse | 58 | 01/02/2018 10:25 AM | | | | | PDT | | + + + + + | Temperature | - | - | | + + + + + | Respiratory Rate | 17 | 01/02/2018 10:25 AM | | | | | PDT | | + + + + + | Oxygen Saturation | - | - | | + + + + + | Inhaled Oxygen | - | - | | | Concentration | | | | + + + + + | Weight | 119.6 kg (263 lb | 01/02/2018 10:25 AM | | | | 10.7 oz) | PDT | | + + + + + | Height | 175.3 cm (5' 9") | 01/02/2018 10:25 AM | | | | | PDT | | + + + + + | Body Mass Index | 38.94 | 01/02/2018 10:25 AM | | | | | PDT | | + + + + + documented in this encounter Patient Instructions Patient Instructions Ronda Caraballo, Naval Engineer - 01/02/2018 10:00 AM PDTIt was a pleasure to see you today. Here is what we discussed. - Let pain be your guide. If you are doing an activity that starts causing you pain back of f and ease back into it slowly. We don't want you taking any risks that do not need to be ta cristóbal. - As we discussed before we can consider surgical options we would need for you to complete a new MRI and also receive a Cardiac and Medical clearance. We also suggest that you should speak with your Primary Care Doctor about seeing a pelletizer operator. - At this point we would like for you to continue your conservative care and return in abou t 6 months to discuss your progress. T documented in this encounter Progress Notes Thomas Lawler PA-C - 01/02/2018 10:00 AM PDTFormatting of this note might be differ ent from the original. Thomas Lawler PA-C [address] [facility], [address] [place], [place] [address] FAX: [phone] NEUROSURGERY FOLLOW-UP CHIEF COMPLAINT: Chief Complaint Patient presents with Follow-up Discuss options HISTORY OF PRESENT ILLNESS: The patient is a 72 y.o. male that was last seen in our office on 07/03/2017 for back and left leg pain. At that time physical therapy was ordered for him, as well as a referral to physiatry for evaluation. He returns with his and overall is doing ok. He complains of back pain that is localized to the middle of his lower back. He reports that he has had no leg pain since the facet ablation therapy. He states that his mark k pain is activity related and worse with progressed activity. He reports that he received facet steroid injections and RFA therapy of the L4/L5, L5/S1 fa cet joints. He reports this procedure gave him 60% improvement. He also had a bilateral L5/ S1 TFESI to target the spinal stenosis at L4/L5. This gave him 50% relief. He has also stop ped taking Oxycodone and had a change in medications. He is now taking Celebrex, and Eliquis . He states that he is taking Eliquis for blood clots and AFIB. He's had 3 different episod es of blood clots in his legs. He takes his eloquence for this as well as his atrial fibril lation really has a history of coronary artery disease with previous stenting. He states he has never had a hematology workup. He will be seeing his internal security manager in the next couple m ont. Although the patient continues to have back pain he has had significant improvements from w hen he started his conservative therapy. The patient has been on narcotics for many years a nd is currently off of all narcotics PAST MEDICAL HISTORY: Past Medical History: Diagnosis [...] Right COLONOSCOPY 2009 [place] CORONARY ANGIOPLASTY 10/27/2016 [place] FEMUR SURGERY Left KNEE ARTHROSCOPY Left 2004 NOSE SURGERY OTHER SURGICAL HISTORY N/A 10/11/2017 Procedure: IR PAIN MANAGEMENT / SKELETAL; Surgeon: Tahir Handley MD; Location: [facility] INTERVENTIONAL RADIOLOGY SHOULDER SURGERY Left 1978 Weeks; '[facility] call[place]. 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 Gonzalez SKIN GRAFT Right Ankle TONSILLECTOMY AND ADENOIDECTOMY TOTAL KNEE ARTHROPLASTY Right 2013 Rojas; [facility] [place]. TOTAL KNEE ARTHROPLASTY Left 2015 Bob; [facility] [place]. VASECTOMY CURRENT MEDICATIONS: Current Outpatient Prescriptions [...] no voice changes, no difficulty swal lowing, no significant snoring, no sleep apnea/CPAP, no sinus problems, no major dental work . NEUROLOGICALLY: Please see the review of systems [...] bladder problems, no impotence. ENDOCRINE: + diabetes, + thyroid disease, no osteopenia or osteoporosis, no breast drainag e. SKIN: No breast lumps, no skin disease or skin changes, no rashes/itches. HEMATOLOGIC/LYMPHATIC: No enlarged lymph nodes, no easy or unusual bleeding, no personal h istory of cancer. RHEUMATOLOGIC: + joint pain/arthritis, no rheumatoid arthritis. INTERIM PHYSICAL EXAMINATION: Blood pressure 105/65, pulse 58, resp. rate 17, height 1.753 m (5' 9"), weight 119.6 kg (26 3 lb 10.7 oz). Body mass index is 38.94 kg/m. GENERAL: Antonio Azevedo Jr. is in [...] has no apparent deficits with short or detention memory. CRANIAL NERVES: Fundoscopic Exam: The optic [...] 5 5 Knee Extension 5 5 Dorsiflexion 4+ 4+ Extensor Hallicus Longus 5 5 Plantarflexion 5 5 SENSORY EXAM: Sensory exam shows no diminished sensation to light touch or pain throughout the upper and lower extremities. REFLEXES: (2 OR 2+ IS NORMAL) REFLEX: RIGHT LEFT PATELLAR 2 2 ACHILLES 2 2 RIZVI'S ABSENT ABSENT PLANTAR DOWNGOING DOWNGOING GAIT: Gait is steady. Toe walking is intact and heel walking shows bilateral weakness. ASSESSMENT: Encounter Diagnoses Name Primary? Lumbar facet arthropathy (HCC) Yes Lumbar radicular pain Lumbar spondylosis Foraminal stenosis of lumbar region Coronary artery disease involving stockbridge coronary artery of stock[place] heart without angina pectoris Past Medical History: Diagnosis Date Atherosclerosis Atrial [...] 10/27/2016 Venous insufficiency Wears partial dentures PLAN: It was a pleasure visiting with this patient again today, and as always I greatly appreciat e the consideration and referral. Overall, the patient is doing well. His leg symptoms hav e improved and his weakness of his left leg has improved since he was seen. He continues wi th some mild dorsiflexion weakness of his feet bilaterally. This is not been progressive. I had a lengthy discussion with the patient about his options for care including surgical a nd non-surgical options. The patient understands that if we were to move forward with surge ry and he would need to have cardiology clearance. In addition I would like him to discuss with his internal security manager and primary care provider the consideration of hematology workup with his unexplained history of thromboembolic disease. In discussing this with him it sounds li ke he has a fairly strong family history of blood clots as well. I do think that prior to s colni we would request hematology consultation. At this time I think we would like to avoid moving forward with surgery. The patient has d one well with conservative therapy and hopefully he will continue to do well. We can follow along with this patient's periodically looking for worsening of symptoms. I would like this patient to follow up with a neurosurgery PA in 6 months to check on your progress. I, Thomas Lawler PA-C, personally performed the services described in this documentation , as scribed by Ronda Kennedy in my presence, and it is both accurate and complete. Thomas Lawler PA-C 01/02/2018 ELECTRONICALLY SIGNED BY: Thomas Lawler PA-C, 01/02/2018 11:09 Portions of this report were transcribed using [employer] voice recognition software. A lthough effort was made in correcting the errors; grammatical and sound alike errors may sti ll be present. documented in this encounter Plan of Treatment [...] | neurogenic claudication | + + | Coronary artery disease involving stockbridge coronary artery of stockbridge heart without | | angina pectoris | + + documented in this encounter
--- OUTSIDE RECORDS SUMMARY | ~2019-02-23 | XMS | Encounter Summary ---
Demographics + + + | Address | [address] | | | [place] [address] | + + + | Home Phone [...] Team Providers + +------+ + | Care Chip Tuner Name | Role | Phone | + [...] [address] | | | | | [place], | [address] [place] | | | | | [place] [address] | [place] [address] | | | | | [phone] | [phone] | | | | | | | [...]
--- OUTSIDE RECORDS SUMMARY | ~2019-02-23 | XMS | Encounter Summary ---
Demographics + + + | Address | [address] | | | [place] [address] | + + + | Home Phone [...] Team Providers + +------+ + | Care Instruction Assistant Principal Name | Role | Phone | + [...] Kelly | | | | | | [place] | | | | | | [address] | | | | | | | | +--------+---------+ + + + documented as of this encounter Visit Diagnoses Not on filedocumented in this encounter"
--- OUTSIDE RECORDS SUMMARY | ~2019-02-23 | XMS | Encounter Summary ---
Demographics + + + | Address | [address] | | | [place] [address] | + + + | Home Phone [...] + + | Author | [facility] | | | and [place] | + + + | Organization | [facility] | | | [...] Team Providers + +------+ + | Care Warm In Name | Role | Phone | + [...] + + | 01/02/ | Office | [facility] [place] | Thomas Lawler | Lumbar facet | | 2017 | Visit | NEUR[address]URGERY [address] | [address] | arthropathy (HCC) | | | | [address] | [address] | (Primary Dx); Lumbar | | | | [place], [place] | [place] | radicular pain; | | | | [address] | [address] | Lumbar spondylosis; | | | | [phone] | | Foraminal stenosis | | | | | | of lumbar region; | | | | | | Coronary artery | | | | | | disease involving | | | | | | [place] coronary | | | | | | artery of [place] | | | | | | heart [...] encounter Patient Instructions Patient Instructions Ronda Caraballo, Aluminum Can Collector - 01/02/2018 10:00 AM PDTIt was a [...] your Primary Care Doctor about seeing a target setter. - At this point we would like for you to continue your conservative care and return in abou t 6 months to discuss your progress. T documented in this encounter Progress Notes Thomas Lawler PA-C - 01/02/2018 10:00 AM PDTFormatting of this note might be differ ent from the original. Thomas Lawler PA-C [address] [facility], [address] [place], [place] [address] FAX: [phone] NEUROSURGERY FOLLOW-UP CHIEF COMPLAINT: Chief Complaint Patient [...] hematology workup. He will be seeing his animal scientist in the next couple m ont. Although [...] Right COLONOSCOPY 2009 [place] CORONARY ANGIOPLASTY 10/27/2016 [place] FEMUR SURGERY Left KNEE ARTHROSCOPY Left 2004 NOSE SURGERY OTHER SURGICAL HISTORY N/A 10/11/2017 Procedure: IR PAIN MANAGEMENT / SKELETAL; Surgeon: Tahir Handley MD; Location: [facility] INTERVENTIONAL RADIOLOGY SHOULDER SURGERY Left 1978 [...] has no apparent deficits with short or skilled nursing memory. CRANIAL NERVES: Fundoscopic Exam: The optic [...] of lumbar region Coronary artery disease involving [place] coronary artery of [place] heart without angina pectoris Past Medical History: [...] would like him to discuss with his animal scientist and primary care provider the consideration of hematology workup with his unexplained history of thromboembolic disease. In discussing this with him it sounds li ke he has a fairly strong family history of blood clots as well. I do think that prior to s colin we would request hematology consultation. At this [...] months to check on your progress. I, Tohmas Lawler PA-C, personally performed the services described in this documentation , as scribed by Ronda Kennedy in my presence, and it is both accurate and complete. Thomas Lawler PA-C 01/02/2018 ELECTRONICALLY SIGNED BY: Thomas Lawler PA-C, 01/02/2018 11:09 Portions of this report were transcribed using [employer] voice recognition software. A lthough effort was [...] + + | Coronary artery disease involving [place] coronary artery of [place]elson [place] heart without | | angina pectoris | + + documented in this encounter
--- OUTSIDE RECORDS SUMMARY | ~2019-02-23 | XMS | Encounter Summary ---
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 | [facility] | [address] | thrombosis (DVT) of | | | | [facility] [address] [place], | femoral vein of left | | | | [address] [place] | [place] [address] | lower extremity | | | | [place] [address] | [phone] | (HCC) (Primary Dx); | | | | [phone] | | Chronic atrial | | | [...] JThromb | | | | | | [id number]:[id number].Refer | | | | | | ence [...] JThromb | | | | | | [id number]:[id number].Refer | | | | | | ence [...] LAB [facility] | | | | prothrombin [id number] | | - BKR | | | [...] nucleotide | | | | | | [id number] using PCR | | | | | [...] | | | | | | prothrombin [id number] | | | | | | mutation [...] | | | | | | theprothrombin [id number] | | | | | | mutation and does not | | | | | | detect othergenetic | | | | | | abnormalities.This test | | | | | | was developed and its | | | | | | performance | | | | | | characteristicsdetermine | | | | | | d by [employer]. It has not | | | | [...] + + | Performed at: 01 - [facility] [address], | REFERENCE LAB | | [place], [place] [id number] Fiberglass Autobody Repairer: Vivek Crawford MD, Phone: | JA[place]EN [place] | | [phone] | | + + + + + + + + | Performing | Address | City/State/Zipcode | Phone Number | | Organization | | | | + + + + + | REFERENCE LAB | [address] | [place], [place] [address] | [phone] | | [facility] [place] | [facility] | | | + + + + [...] include | | | | | | [id number] mutation in | | | | | [...] at | | | | | | [id number] | | | | | | (3933).Methodology:DNA | | | | | | analysis [...] + + | Performed at: 01 - [facility] [address] [facility] [address], | REFERENCE LAB | | [place], [place] [id number] Fiberglass Autobody Repairer: Vivek Crawford MD, Phone: | JAIDEN GALVAN | | [phone] | | + + + + + + + + | Performing | Address | City/State/Zipcode | Phone Number | | Organization | | | | + + + + + | REFERENCE LAB | [address] | [place] [address] | [phone] | | [facility] [place] | [facility] | | | + + + + [...] + + | [facility] | [address] | [place] | [phone] | | [facility] | | [address] | | | - LABORATORY | | [...]
--- OUTSIDE RECORDS SUMMARY | ~2019-02-23 | XMS | Encounter Summary ---
Demographics + + + | Address | [address] | | | [place] [address] | + + + | Home Phone | | + + + | Preferred Language | Unknown | + + + | Marital Status | | + + + | Synagogue Affiliation | Unknown | + + + | Race | Unknown | + + + | Ethnic Group | Unknown | + + + Author + + + | Author | [facility] | | | and [place] | + + + | Organization | [facility] | | [...] Team Providers + +------+ + | Care Fiber Analyst Name | Role | Phone | + +------+ + | Kait Velazquez MD | PCP | | + +------+ + Reason for Visit + + + | Reason | Comments | + + + | Follow-up | Discuss Injections | + + + Encounter Details +--------+---------+ + + + | Date | Type | Department | Care Team | Description | +--------+---------+ + + + | 03/26/ | Office | [facility] | Carey, | Lumbar radicular | | 2018 | Visit | PHYSIATRY [address] | [address] | pain (Primary Dx); | | | | [place], | [address], | DDD (degenerative | | | | [place] [address] | [place] [address] | disc disease), | | | | [phone] | [phone] | lumbar; Lumbar | | | | | | spondylosis | +--------+---------+ + + + Social History [...] + + + | Blood Pressure | 123/65 | 03/26/2018 1:40 PM | | | | | PST | | + + + + + | Pulse | 72 | 03/26/2018 1:40 PM | | | | | PST [...] Weight | 119.3 kg (263 lb) | 03/26/2018 1:40 PM | | | | | PST | | + + + + + | Height | 175.3 cm (5' 9") | 03/26/2018 1:40 PM | | | | | PST | | + + + + + | Body Mass Index | 38.84 | 03/26/2018 1:40 PM | | | | | PST | | + + + + + documented in this encounter Patient Instructions Patient Instructions Елена Patino PA-C - 03/26/2018 1:40 PM PSTLumbar epidural inj ection with Dr. Leonard Spinal Stenosis: Stenosis refers to the narrowing of the spinal cord. This most often occurs with age and generative changes of the spine. Narrowing of the spinal cord causes compression and inflam mation of nerves in the lower back and can cause numbness, pain, and weakness in the back, b uttocks and legs. You may notice you have more pain with standing and walking. It feels be tter to walk more bent over at the waist, while pushing a grocery cart or walker. You get r elief with sitting down. Treatment includes pain medicine, gabapentin, transforaminal epidu ral steroid injections to help reduce swelling, physical therapy and surgery. Steroids are a very strong anti-inflammatory, this helps reduce pain by reducing swelling. Complications of steroids are bleeding, infection, and an increase of blood sugars if you are diabetic. oysterman risk can lead to osteoporosis which is why we limited the number of injections to 3 times per year. Epidural injections target the spinal stenosis by putting the steroid around the nerves that come out of the spine with hopes the steroid gets into t he region of the stenosis. The procedure is about 20 minutes long. You will lie on your mark k while x-rays are taken. Once the region is marked, it is numbed and then injected with st eroids. Follow-up at the hospital thirty minutes before [...] of the procedure you must provide a van driver helper to take you home. For all procedur es it is recommended that someone else drive you home. documented in this encounter Progress Notes Елена Patino PA-C - 03/26/2018 1:40 PM PSTFormatting of this note might be differe nt from the original. Елена Patino PA-C [address] [facility] [address] [place], [place] [address] FAX: PHYSICAL MEDICINE AND REHABILITATION H&P CHIEF COMPLAINT: Chief Complaint Patient presents with Follow-up Discuss Injections HISTORY OF PRESENT ILLNESS: The patient is a 73 y.o. male being seen today for follow up c omplaints of back pain that began a chronic issue for months now. He last received bilatera l L5/S1 TFESI with Dr. Handley 12/13/2017. He reported 50% relief for 3 months. His symp toms recently worsened two weeks ago and he is hoping for another injection. He reports his pain is worse with standing and walking. His pain is relieved with sitting and changing po sitions. He describes his pain is more of the achy throbbing to the lower back buttocks reg ion. She does not report any paresthesias or weakness at this time. He is no longer able t o take Celebrex for pain relief due to kidney injury, he is taking amitriptyline which is he lping him sleep at night. Treatments for these [...] tablet Take 81 mg by mouth Daily. celecoxib (CELEBREX) 200 mg capsule TAKE 1 CAPSULE BY MOUTH TWICE DAILY 60 capsule 0 cetirizine (ZYRTEC) 10 mg tablet Take 10 mg by mouth Daily. Desoximetasone 0.05 % GEL Apply 1 Application topically 2 times daily. ELIQUIS 5 MG tablet Take 1 tablet by mouth Daily. 4 l-methylfolate 15 mg tablet Take 1 tablet by mouth Daily. 30 tablet 2 levothyroxine (SYNTHROID) 50 mcg tablet Take 50 mcg by mouth Daily. methylPREDNISolone (MEDROL DOSEPAK) 4 [...] of systems was negative. PHYSICAL EXAMINATION: Vitals: 03/26/18 1340 BP: 123/65 Pulse: 72 PainSc: 4 PainLoc: Back Body mass index is 38.84 [...] has no apparent deficits with short or correction memory. He has appropriate fund of knowledge [...] the left at L4/L5. ASSESSMENT: 1. Lumbar radicular pain 2. DDD (degenerative disc disease), lumbar 3. Lumbar spondylosis PLAN: 1. The patient has had significant conservative care including medications (NSAIDS and narc otics), PT (multiple sessions over the years) and managed care coordinator. Unfortunately she katie nues to have significant discomfort. It appears to me that the pain is primarily coming fro m the spinal stenosis. I did feel that she would be a good candidate for interventional pro cedures and I offered bilateral L5?s1 TFESI as this has helped in the past. 2. Patient has participated in physical therapy, this was done at [facility]. 3. I will follow up with him in 3 months for another possible injection. 4. I have not made any changes in his medications today. ELECTRONICALLY SIGNED BY: Елена Patino PA-C, 03/26/2018 CC: Aleksander Velazqueztronically signed by Елена Patino PA-C at 03/26/2018 2:20 PM PS Tdocumented in this encounter Plan of Treatment Not on filedocumented as of this encounter Results FL KASSIDY Lumbar Transforaminal (04/04/2018 5:05 PM PST) + + | Specimen | + + | | + + + + -+ | Narrative | Performed At | + + -+ | 04/04/2018 | [facility] | | Bilateral Transforaminal Epidural Steroid Injections Diagnosis: Lumbar | | | radiculopathy ICD-10 Code M54.16 Antonio Azevedo Jr. presents to | | | the fluoroscopy suite for fluoroscopically-guided bilateral bilateral | | | L5-S1 transforaminal epidural steroid injections as part of | | | conservative management for chronic pain with lumbar radiculopathy and | | | degenerative disc disease. After informed consent was obtained, the | | | patient lay in the prone position on the fluoroscopy table. The areas | | | were identified under fluoroscopic guidance. The areas were prepped | | | and draped in sterile fashion. A 25-gauge, 1.5-inch needle was | | | inserted into each region and approximately 3 mL of buffered 1% | | | lidocaine was infused. Then, a 22-gauge spinal needle was inserted | | | into the posterior superior transforaminal space bilaterally and | | | advanced into the epidural space under fluoroscopic guidance. | | | Confirmation into the epidural space with Omnipaque contrast was not | | | performed due to a contrast dye allergy. Once the needles were in | | | position a combination of 2 mL of 1% lidocaine and 2 mL of 6 mg/mL | | | betamethasone was infused, divided between the two sides. The patient | | | tolerated the procedure well without complications. Pre- [...] | | Local 1% Lidocaine | | |positioning and an accurate procedure [...] + | Performing | Address | City/[facility] | Phone Number | | Organization | | | | + +---------+ + + | [facility] | | | | + +---------+ + + documented in this encounter Visit Diagnoses + + | Diagnosis | + + | Lumbar radicular pain - Primary Thoracic or lumbosacral neuritis or radiculitis, | | unspecified | + + | DDD (degenerative disc disease), lumbar Degeneration of lumbar or lumbosacral | | intervertebral disc | + + | Lumbar spondylosis Lumbosacral spondylosis without myelopathy | + + documented in this encounter
--- OUTSIDE RECORDS SUMMARY | ~2019-02-23 | XMS | Encounter Summary ---
Demographics + + + | Address | [address] | | | [place] [address] | + + + | Home Phone | | + + + | Preferred Language | Unknown | + + + | Marital Status | | + + + | Sikh Affiliation | Unknown | + + + | Race | Unknown | + + + | Ethnic Group | Unknown | + + + Author + + + | Author | [facility] | | | and [place] | + + + | Organization | [facility] | | [...] Team Providers + +------+ + | Care Cellar Supervisor Name | Role | Phone | [...] + + | 09/03/ | Telephone | [facility] | Tahir Handley | Other (post | | 2017 | | PHYSIATRY [address] | [address], [address] | procedure results) | | | | [place], | [place], [place] | | | | | [place] [address] | [address] | | | | | [phone] | | | +--------+ + + + [...] + + | Performing | Address | City/State/[facility] | Phone Number | | Organization | | | | + +---------+ + + | [facility] | | | | + +---------+ + + documented in this encounter Visit Diagnoses + + | Diagnosis | + + | Spondylosis without myelopathy or radiculopathy, lumbar region - Primary | + + documented in this encounter"
--- OUTSIDE RECORDS SUMMARY | ~2019-02-23 | XMS | Encounter Summary ---
Demographics + + + | Address | [address] | | | [place] [address] | + + + | Home Phone | | + + + | Preferred Language | Unknown | + + + | Marital Status | | + + + | Catholic Affiliation | Unknown | + + [...] Team Providers + +------+ + | Care Production Superintendent Hydro Name | Role | Phone | + +------+ + | Kait Velazquez MD | PCP | | + +------+ + Reason for Visit +--------+ + | Reason | Comments | +--------+ + | Other | Lumbar MRI request | +--------+ + Encounter Details +--------+ + + + + | Date | Type | Department | Care Team | Description | +--------+ + + + + | 10/02/ | Telephone | [facility] | Shemar Gillis, | Other (Lumbar MRI | | 2019 | | PHYSIATRY [address] | PA-C [address] | request) | | | | [place], | [address] [place] | | | | | [place] [address] | [place] [address] | | | | | [phone] | [phone] | | | | | | | [...]
--- OUTSIDE RECORDS SUMMARY | ~2019-02-23 | XMS | Encounter Summary ---
Demographics + + + | Address | [address] | | | [place] [address] | + + + | Home Phone | | + + + | Preferred Language | Unknown | + + + | Marital Status | | + + + | Anabaptism Affiliation | NRP | + + + [...] Team Providers + +------+ + | Care Director Ehs Name | Role | Phone | + [...] [address] | | | | | | [place] | | | | | | [address] | | | | | | | | +--------+---------+ + + + documented as of this encounter Visit Diagnoses Not on filedocumented in this encounter"
--- OUTSIDE RECORDS SUMMARY | ~2019-02-23 | XMS | Encounter Summary ---
Demographics + + + | Address | [address] | | | [place] [address] | + + + | Home Phone | | + + + | Preferred Language | Unknown | + + + | Marital Status | | + + + | Quaker Affiliation | Unknown | + + + | Race | Unknown | + + + | Ethnic Group | Unknown | + + + Author + + + | Author | [facility] | | | and [place] | + + + | Organization | [facility] | | | [...] Team Providers + +------+ + | Care Scrub Nurse Name | Role | Phone | [...] + + | 02/03/ | Refill | [facility] | Bing Terrazas, | Medication Refill | | 2019 | | CARDIOLOGY [facility] | [address] | | | | | [address] | [place], [place] | | | | | [place], [place] | [address] | | | | | [address] | | | | | | [phone] | | | +--------+--------+ + + + [...]
--- OUTSIDE RECORDS SUMMARY | ~2019-02-23 | XMS | Encounter Summary ---
Demographics + + + | Address | [address] | | | [place] [address] | + + + | Home Phone | | + + + | Preferred Language | Unknown | + + + | Marital Status | | + + + | Orthodoxy Affiliation | NRP | + + + [...] Team Providers + +------+ + | Care Grinder Operator Name | Role | Phone | [...] | | | | [address] | [place] [address] | | | | | [place], [place] | [phone] | | | | | [address] | | | | | | [phone] | | | +--------+ + + + [...] | | 2018 | Visit | | [facility] [address] | | | | | | [place] | | | | | | [address] | | | | | | | | +--------+---------+ + + + documented as of this encounter Visit Diagnoses Not on filedocumented in this encounter"
--- OUTSIDE RECORDS SUMMARY | ~2019-02-23 | XMS | Encounter Summary ---
Demographics + + + | Address | [address] | | | [place] [address] | + + + | Home Phone | | + + + | Preferred Language | Unknown | + + + | Marital Status | | + + + | Tenriism Affiliation | NRP | + + + [...] Team Providers + +------+ + | Care Disabilities Caregiver Name | Role | Phone | + [...] | | | | [address] | [place] [address] | | | | | [place], [place] | [phone] | | | | | [address] | | | | | | [phone] | | | +--------+ + + + [...] [address] | | | | | | [facility] [place] | | | | | | [address] | | | | | | | | +--------+---------+ + + + documented as of this encounter Visit Diagnoses Not on filedocumented in this encounter"
--- OUTSIDE RECORDS SUMMARY | ~2019-02-23 | XMS | Encounter Summary ---
Demographics + + + | Address | [address] | | | [place] [address] | + + + | Home Phone | | + + + | Preferred Language | Unknown | + + + | Marital Status | | + + + | Baptism Affiliation | NRP | + + + | Race | White | + + + | Ethnic Group | Not or | + + + Author + + + | Author | [facility] | + + + | Organization | [facility] | + + + | Address | Unknown | + + + | Phone | Unavailable | + + + Support + + +---------+ + | Name | Relationship | Address | Phone | + + +---------+ + | Lara Azevedo | ECON | Unknown | | + + +---------+ + Care Team Providers + +------+ + | Care Helmet Hat Puncher Name | Role | Phone | + [...] [id number] | | | | | | [place] [facility] | | | | | | and Healing, | | | | | | [facility] [address], [facility] | | | | | | [place], [place] | | | | | | [address] | | | | | | [phone] | | | +--------+ + + + [...] [address] | | | | | | [place], [place] | | | | | | [address] | | | | | | | [...] skin, | | | | | | [id number]. The surgical | | | | | [...] skin, | | | | | | [id number]. 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
--- OUTSIDE RECORDS SUMMARY | ~2019-02-23 | XMS | Clinical Summary ---
Demographics + + + | Address | [address] | | | [place] [address] | + + + | Home Phone | | + + + | Preferred Language | Unknown | + + + | Marital Status | | + + + | Confucianist Affiliation | Unknown | + + + | Race | Unknown | + + + | Ethnic Group | Unknown | + + + Author + + + | Author | [facility] (Historical as of | | | 11-30-18) | + + + | Organization | [facility] (Historical as of | | | 11-30-18) [...] Providers + +------+ + | Care Lead Cytogenetic Technologist Name | Role | Phone | [...] + + | 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
--- OUTSIDE RECORDS SUMMARY | ~2019-02-23 | XMS | Encounter Summary ---
Demographics + + + | Address | [address] | | | [place] [address] | + + + | Home Phone [...] Team Providers + +------+ + | Care Shipping And Receiving Associate Name | Role | Phone | + [...] | Lumbar | En[place], | [address] | | | | | radiculopath | Tahir Maldonado MD | [place], | | | | | y | [address] | [place] | | | | | Procedures | [place] | [address] | | | | | [place] INJECT | [place], [place] | Phone: | | | | | ANES/STEROID | [address] | [phone] | | | | | FORAMEN | Phone: | Fax: | | | | | LUMBAR/SACRA | [phone] | [phone] | | | | | L [address] IMG | Fax: | | | | | | GUIDE ,1 | [phone] | | | | | | LEVEL NC | | | | | | | TRIAMCINOLON | | | | | | | E ACET INJ | | | | | | | NOS, 10 MG | | | | | | | hold | | | | | | | //18 | | | | | | | Bilateral | | | | | | | L5-S1 TFESI | | | +--------+--------+ + + + + Encounter Details +--------+ + + + + | Date | Type | Department | Care Team | Description | +--------+ + + + + | 04/04/ | Hospital | [facility] | Carey, | Lumbar radicular | | 2018 | Encounter | MED CTR XRAY [address] | [address] | pain; DDD | | | | [address] [place] | [facility], | (degenerative disc | | | | [place] [address] | [place] [address] | disease), lumbar; | | | | [phone] | [phone] | Lumbar spondylosis | | | | | | | | | | | Complaint Inspector, James | | +--------+ + + + + [...] +---------+ + + | Blood Pressure | 180/90 | 04/04/2018 5:22 PM | | | | | PST | | + +---------+ + + | Pulse | 109 | 04/04/2018 5:22 PM | | | | | PST [...] celecoxib | TAKE 1 CAPSULE BY | 60 | 0 | 01/04/20 | | | (CELEBREX) 200 mg | MOUTH TWICE DAILY | capsule | | 18 | 9 | | capsule | | | | [...] | FL EPIDURAL STEROID | Routin | 04/04/2018 | Lumbar radicular | Results for this | | INJECTION LUMBAR | e | 5:05 PM | pain DDD | procedure are in the | | TRANSFORAMINAL | | PST | (degenerative disc | results section. | | | | | disease), lumbar | | | | | | Lumbar spondylosis | | + +--------+ + + [...] + + | Performing | Address | City/State/[facility] | Phone Number | | Organization | | | | + +---------+ + + | [facility] | | | | + +---------+ + + documented in this encounter Visit Diagnoses + + | Diagnosis | + + | Lumbar radicular pain Thoracic or lumbosacral neuritis or radiculitis, unspecified | + + | DDD (degenerative [...] | | | + +--------+ +-------+------+------+ | betamethasone (CELESTONE | Given | 04/04/20 | 12 mg | | | | SOLUSPAN) injection 12 mg 12 mg, | | 18 5:15 | | | | | Other, ONCE, Tiara 04/04/18 at | | PM PST | | | | | 1715, For 1 dose, Shake well. Not | | | | | | | for IV use., | | | | | | + +--------+ +-------+------+------+ +---+---+ | | | +---+---+ + +-------+ +-------+---+---+ | lidocaine (PF) 1% injection 2 | Given | 04/04/20 | 2 mLs | | | | mL 2 mL, Other, ONCE, Tiara | | 18 5:15 | | | | | 18 at 1715, For 1 dose, | | PM PST | | | | | EPIDURAL, | | | | | | + +-------+ +-------+---+---+ +---+---+ | | | +---+---+ + +-------+ +-------+---+ + | lidocaine buffered 0.9% | Given | 04/04/20 | 6 mLs | | Other | | injection 6 mL 6 mL, | | 18 5:10 | | | (Comment | | Intradermal, ONCE, [facility] 04/04/18 | | PM PST | | | ) | | at 1715, For 1 dose | | | | | | + +-------+ +-------+---+ + +---+---+ | | | +---+---+ documented in this encounter"
--- OUTSIDE RECORDS SUMMARY | ~2019-02-23 | XMS | Encounter Summary ---
Demographics + + + | Address | [address] | | | [place] [address] | + + + | Home Phone | | + + + | Preferred Language | Unknown | + + + | Marital Status | | + + + | Yarsani Affiliation | NRP | + + + [...] Team Providers + +------+ + | Care Adjunct Spanish Instructor Name | Role | Phone | [...] | | [address] | [place], [place] | (Primary Dx); Lumbar | | | | [address] | [address] | foraminal stenosis; | | | | [place], [place] | | Other spondylosis | | | | [address] | | with radiculopathy, | | | | [phone] | | lumbar region; Other | | [...] MOTRIN, IBUPROFEN, ALEVE), vitamin E, herbal supplements, Kenna 3 fish oil 10 days before surgery [...] bottle of 4.0% Chlorhexidine Gluconate solution from [facility], [facility] [employer], or your local drug [...] for a neurosurgical H&P in preparation [place] [facility] [place]. He is scheduled for an XLIF L4-5/TLIF L5-S1 with L4-S1 case consultant ior fusion on 02/03/2019. He presented to [...] mid-LAD (2017). Asymptomatic. Seen at cardiology office ([place]) last month for preop eval without issues. [...] hematology cons ultation with Dr. Mahin Marks ([place], [place]) on 10/30/18 for periop erative anticoagulation [...] 5 C8 (Wrist Ext) 5 5 C8 (Cemetery Warden) 5 5 T1 (Pinky Abd) 5 5 [...] drawn in December at [facility] in [place], [place]. Not available for review at present. MRSA/MSSA Nasal culture: In process Lab Results Component Value Date A1C 6.6 (H) 01/23/2019 Diagnostic Results: EK02/06/2018: Normal sinus rhythm, low voltage QRS to limb leads, V1. Rate 70 bpm, ID 13 4 ms, QRS 78 ms, QTC 412 ms, old inferior WI, tracing personally reviewed by me EK12/26/2018: Normal sinus rhythm, persistent low voltage QRS to inferior leads consisten t with previous inferior WI, low voltage QRS to limb leads V1, V2. Rate 69 bpm, ID 140 ms, Q RS 82 ms, QTC [...] MEDIA TAB 1 ) Cosme Baker PA-C [facility] [phone] signed by Cosme Baker PA-C at 01/30/2019 [...] 2018 | Visit | | [address] | | | | | | [place], [place] | | | | | | [address] | | | | | | | [...]
--- OUTSIDE RECORDS SUMMARY | ~2019-02-23 | XMS | Encounter Summary ---
Demographics + + + | Address | [address] | | | [place] [address] | + + + | Home Phone | | + + + | Preferred Language | Unknown | + + + | Marital Status | | + + + | Presybeterian Affiliation | Unknown | + + + | Race | Unknown | + + + | Ethnic Group | Unknown | + + + Author + + + | Author | [facility] | | | and [place] | + + + | Organization | [facility] | | | and [...] Team Providers + +------+ + | Care Dermatology Teacher Name | Role | Phone | + +------+ + | Paul Boss MD | PCP | | + +------+ + Reason for Visit + + + | Reason | Comments | + + + | Follow-up | H&P for RFA | + + + Encounter Details +--------+---------+ + + + | Date | Type | Department | Care Team | Description | +--------+---------+ + + + | 10/11/ | Office | [facility] | Shemar Gillis, | Lumbar spondylosis | | 2018 | Visit | PHYSIATRY [address] | PA-C [address] | (Primary Dx); DDD | | | | [place], | [address] [place] | (degenerative disc | | | | [place] [address] | [place] [address] | disease), lumbar; | | | | [phone] | [phone] | Lumbar facet | | | | | | arthropathy (HCC) | +--------+---------+ + + + Social [...] + + + | Blood Pressure | 130/67 | 10/11/2017 10:49 AM | | | | | PDT | | + + + + + | Pulse | 59 | 10/11/2017 10:49 AM | | | | | PDT [...] + + + + | Weight | 123 kg (271 lb 2.7 | 10/11/2017 10:49 AM | | | | oz) | PDT | | + + + + + | Height | 175.3 cm (5' 9") | 10/11/2017 10:49 AM | | | | | PDT | | + + + + + | Body Mass Index | 40.04 | 10/11/2017 10:49 AM | | | | | PDT | | + + + + + documented in this encounter Patient Instructions Patient Instructions Shemar Gillis PA-C - 10/11/2017 11:00 AM PDTRadiofrequency Ablation ( RFA) Burning of the nerves: This procedure is [...] not feel pain. 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 You will feel more bruising pain to the location of the needles for approxima tely 4-5 days after this procedure, but once that clears up, you should be pain free for 8 m onths to 2 years, depends on when the nerve grows back. Facet Pain: Visit this web link for a visually stunning, short, and informative video: [email or web address] The facet joint is located when the vertebrae (bones of the spine) connect to each other. Pain occurs with extension and rotation of the spine (bending backwards and rotating), bend ing over and lifting a heavy load, standing, first things in the morning. Images of the spi ne show facet arthritis, fluid in the facet joints. Treatment included rest, anti-inflammat ories, physical therapy focusing on core strengthening, facet steroid injections. Steroids are a very strong anti-inflammatory, this helps reduce pain by reducing swelling. Complications of steroids are bleeding, infection, and an increase of blood sugars if you are diabetic. assisted risk can lead to osteoporosis which is why we limited the number of injections to 3 times per year. Facet joints are located when the vertebrae (bones of the spine) connect to each other. Typically these joints can have arthritis in this and give a person centralized low back pain. The procedure takes about 20 minutes. You lie on your b ack and x-rays are taken. Once the region is localized, it is numbed and then injected with steroid. Osteoarthritis Osteoarthritis (also called degenerative joint disease)happenswhen the cartilage in a j oint becomes damaged and worn. This may be due to age, wear and tear, overuse of the joint, or other problems. Osteoarthritiscan affect any joint. But it is most common inhands, kn ees, spine, hips, and feet. Symptoms include joint stiffness, pain, and swelling. Home care When a joint is more sore than usual, rest it for a day or two. Heat can help relieve stiffness. Take a hot bath or apply a heating pad for up to 30 min utes at a time. If symptoms are worse in the morning, using heat just after awakening can he lp relax the muscle and soothe the joints. Ice helps relieve pain and swelling. It is often used after activity. Use a cold pack wr apped in a thin cloth on the joint for 10 to 15 minutes at a time. Alternating hot and cold can also help relieve pain. Try this for 20 minutes at a time, several times per day. Exercise helps prevent the muscles and ligaments around the joint from becoming weak.I t also helps maintain function in the joint.Be as active as you can. Talk to your health care provider about what activity program is best for you. Excess weight puts a lot of extra strain on weight-bearing joints of the lower back, hip s, knees, feet and ankles. If you are overweight, talk to your healthcare provider about a s afe and effective weight loss program. Use anti-inflammatory medicines as prescribed for pain. This includes acetaminophen or N SAIDs such as ibuprofen or naproxen. If needed, topical or injected medicines may be recomme nded. Talk to your healthcare provider if these options are not enough to manage your pain. Talk with your healthcare provider about devices that might help improve your function a nd reduce pain. Follow-up care Follow up with your healthcare provider as advised by our staff. When to seek medical advice Call your healthcare provider right away if any of these occur: Redness or swelling of a painful joint Discharge or pus from a painful joint Fever of100.4F (38C)or higher, or as directed by your healthcare provider Worsening joint pain Decreased ability to move the joint or bear weight on the joint Date Last Reviewed: 06/14/201619999772-0916 [employer]. [address] [place] [address]. All righ ts reserved. This information is not intended as a substitute for professional medical care. Always follow your healthcare professional's instructions. documented in this encounter Plan of Treatment Not on filedocumented as of this encounter Visit Diagnoses + + | Diagnosis | + + | Lumbar spondylosis - Primary Lumbosacral spondylosis without myelopathy | + + | DDD (degenerative disc disease), lumbar Degeneration of lumbar or lumbosacral | | intervertebral disc | + + | Lumbar facet arthropathy Lumbosacral spondylosis without myelopathy | + + documented in this encounter
--- OUTSIDE RECORDS SUMMARY | ~2019-02-23 | XMS | Encounter Summary ---
Demographics + + + | Address | [address] | | | [place] [address] | + + + | Home Phone [...] Team Providers + +------+ + | Care Supervisor Phosphoric Acid Name | Role | Phone | + [...] | | | | [address] | [place] [address] | | | | | [place], [place] | [phone] | | | | | [address] | | | | | | [phone] | | | +--------+ + + + [...] [place] | | | | | | [place] | | | | | | [address] | | | | | | | | +--------+---------+ + + + documented as of this encounter Visit Diagnoses Not on filedocumented in this encounter"
--- OUTSIDE RECORDS SUMMARY | ~2019-02-23 | XMS | Encounter Summary ---
Demographics + + + | Address | [address] | | | [place] [address] | + + + | Home Phone | | + + + | Preferred Language | Unknown | + + + | Marital Status | | + + + | Alevism Affiliation | Unknown | + + + [...] Team Providers + +------+ + | Care Double End Tenoner Operator Name | Role | Phone | [...] | (Primary Dx) | | | | [place], | [address] [place] | | | | | [place] [address] | [place] [address] | | | | | [phone] | [phone] | | | | | | | [...]
--- OUTSIDE RECORDS SUMMARY | ~2019-02-23 | XMS | Encounter Summary ---
Demographics + + + | Address | [address] | | | [place] [address] | + + + | Home Phone | | + + + | Preferred Language | Unknown | + + + | Marital Status | | + + + | Yazidism Affiliation | Unknown | + + + [...] Team Providers + +------+ + | Care Principal Trainer Name | Role | Phone | + [...] | | | | | [address] | [address] [place], [place] | | | | | [place], [place] | [address] | | | | | [address] | | | | | | [phone] | | | +--------+---------+ + + + [...] all the medicines you take. This includes gllt-lsf-jfldwxk medicines such as ibupro fen. It also [...] by the pain medicine Date Last Reviewed: 05/17/201619998772-4254 [employer]. [address] [place] [address]. All righ ts reserved. This information is [...] neurotomy, or rhizomotomy. How to say it VQV-qsb-td-WZDZ-eeci-rhzkorina No Why radiofrequency denervation is done This [...] up to 4 months Date Last Reviewed: 09/15/201519992726-8166 [employer]. [address] [place] [address]. All righ ts reserved. This information is [...] 1:33 PM | arthropathy | | | ([address]) | | PST | | | + [...]
--- OUTSIDE RECORDS SUMMARY | ~2019-02-23 | XMS | Encounter Summary ---
Demographics + + + | Address | [address] | | | [place] [address] | + + + | Home Phone [...] Team Providers + +------+ + | Care Payment Collector Name | Role | Phone | + [...] Ave | | | | | Ave [place], [place] | [place] [address] | | | | | [address] | [phone] | | +--------+ + + + + [...] | | on | flank | Moses Alexanrda RN | | +--------+ + + + [...] Kelly | | | | | | [place], [place] | | | | | | [address] | | | | | | | [...]
--- OUTSIDE RECORDS SUMMARY | ~2019-02-23 | XMS | Encounter Summary ---
Demographics + + + | Address | [address] | | | [place] [address] | + + + | Home Phone | | + + + | Preferred Language | Unknown | + + + | Marital Status | | + + + | Mandaeism Affiliation | Unknown | + + + | Race | Unknown | + + + | Ethnic Group | Unknown | + + + Author + + + | Author | [facility] | | | and [place] | + + + | Organization | [facility] | | [...] Providers + +------+ + | Care Senior Manager Name | Role | Phone | [...] | Lumbar | En[place], | [address] | | | | | spondylosis | Tahir T, MD | [place], | | | | | Procedures | [address] | [place] | | | | | [place] IN[place] | [address] [place] | [address] | | | | | DX/THER AGNT | [place], [place] | Phone: | | | | | [place] | [address] | [phone] | | | | | [address] [place], | Phone: | Fax: | | | | | LUMBAR/SAC, | [phone] | [phone] | | | | | 1ST LEVEL | Fax: | | | | | | [place] | [phone] | | | | | | TRIAMCINOLON [...] + + | 05/10/ | Hospital | [facility] | Carey, | Lumbar spondylosis | | 2018 | Encounter | MED CTR XRAY [address] | [address] | | | | | [address] [place] | [facility], | | | | | [place] [address] | [place] [address] | | | | | [phone] | [phone] | | | | | | | | | | | | Accounting Recruiter, [facility] | | +--------+ + + + [...] + + | Performing | Address | City[facility] | Phone Number | | Organization | [...]
--- OUTSIDE RECORDS SUMMARY | ~2019-02-23 | XMS | Encounter Summary ---
Demographics + + + | Address | [address] | | | [place] [address] | + + + | Home Phone | | + + + | Preferred Language | Unknown | + + + | Marital Status | | + + + | Jain Affiliation | Unknown | + + + | Race | Unknown | + + + | Ethnic Group | Unknown | + + + Author + + + | Author | [facility] | | | and [place] | + + + | Organization | [facility] | | | [...] Providers + +------+ + | Care Signal Tower Operator Name | Role | Phone | [...] + + | 12/04/ | Office | [facility] | Carey, | Lumbar facet | | 2018 | Visit | PHYSIATRY [address] | [address] | arthropathy (HCC) | | | | [place], | [address] [place], | (Primary Dx); Lumbar | | | | [place] [address] | [place] [address] | spondylosis; DDD | | | | [phone] | [phone] | (degenerative disc | | | | [...] counter L-methylfolate 1000mg - can get at [facility], [facility] etc. 3- Try anti-depressents either Wellbutrin After [...] from the original. Елена Patino PA-C [address] [facility], [address] [place], [place] [id number] FAX: PHYSICAL MEDICINE AND REHABILITATION H&P CHIEF [...] long time patient of Dr. Flores at [facility]. 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 He has appropriate fund of knowledge [...] in physical therapy, this was done at [facility], a total of 10 visits, his [...]
--- OUTSIDE RECORDS SUMMARY | ~2019-02-23 | XMS | Encounter Summary ---
Demographics + + + | Address | [address] | | | [place] [address] | + + + | Home Phone | | + + + | Preferred Language | Unknown | + + + | Marital Status | | + + + | Methodist Affiliation | Unknown | + + + | Race | Unknown | + + + | Ethnic Group | Unknown | + + + Author + + + | Author | [facility] | | | and [place] | + + + | Organization | [facility] | | | and [...] Providers + +------+ + | Care Supervisor Microfilm Duplicating Unit Name | Role | Phone | + [...] [place], | | | | | [address] [place] | [place] [address] | | | | | [place] [address] | [phone] | | | | | [phone] | | | +--------+ + + + [...]
--- OUTSIDE RECORDS SUMMARY | ~2019-02-23 | XMS | Encounter Summary ---
Demographics + + + | Address | [address] | | | [place] [address] | + + + | Home Phone [...] Team Providers + +------+ + | Care Prison Classification Counselor Name | Role | Phone | [...] | | | | [address] | [place] [address] | | | | | [place], [place] | [phone] | | | | | [address] | | | | | | [phone] | | | +--------+ + + + [...] Kelly | | | | | | [place], [place] | | | | | | [address] | | | | | | | | +--------+---------+ + + + documented as of this encounter Visit Diagnoses Not on filedocumented in this encounter"
--- OUTSIDE RECORDS SUMMARY | ~2019-02-23 | XMS | Encounter Summary ---
Demographics + + + | Address | [address] | | | [place] [address] | + + + | Home Phone | | + + + | Preferred Language | Unknown | + + + | Marital Status | | + + + | Church Affiliation | Unknown | + + + | Race | Unknown | + + + | Ethnic Group | Unknown | + + + Author + + + | Author | [facility] | | | and [place] | + + + | Organization | [facility] | | [...] Providers + +------+ + | Care Senior Ui Ux Developer Name | Role | Phone | + +------+ + | Paul Boss MD | PCP | | + +------+ + Reason for Visit + + + | Reason | Comments | + + + | New Patient | ear cleaning | + + + Encounter Details +--------+---------+ + + + | Date | Type | Department | Care Team | Description | +--------+---------+ + + + | 04/04/ | Office | [facility] | Artur Guerin MD | Bilateral impacted | | 2017 | Visit | OTOLARYNGOLOGY [address] | [address] [place] | cerumen (Primary | | | | [address] | [address] [place], | Dx); Infective | | | | [place], [place] | [place] [address] | otitis externa of | | | | [address] | [phone] | both ears | | | | [phone] | | | +--------+---------+ + + + [...] + + + | Blood Pressure | - | - | | + + + + + | Pulse | 68 | 04/04/2017 11:34 AM | | | | | PST | | + + + + + | Temperature | - | - | | + + + + + | Respiratory Rate | 16 | 04/04/2017 11:34 AM | | | | | PST | | + + + + + | Oxygen Saturation | 95% | 04/04/2017 11:34 AM | | | | | PST | | + + + + + | Inhaled Oxygen | - | - | | | Concentration | | | | + + + + + | Weight | 120.7 kg (266 lb) | 04/04/2017 11:34 AM | | | | | PST | | + + + + + | Height | 175.3 cm (5' 9") | 04/04/2017 11:34 AM | | | | | PST | | + + + + + | Body Mass Index | 39.28 | 04/04/2017 11:34 AM | | | | | PST | | + + + + + documented in this encounter Progress Notes Artur Guerin MD - 04/04/2017 11:45 AM PSTPatient had fairly sudden onset of hearing loss back about 4 weeks ago. He was sent for a hearing examination by Dr. Chrsitina. It was note d that his ear drums were covered with wax and debris and so he was seen to have his ears cl jose before having his audiogram. No other ENT complaints today. Examination: The patient has a very moist wet debris covering both eardrums. With the use of suction at this debris was removed and once removed to get hear much better in both ears. Because of the moisture it does appear to have a mild infective appearance or at least wet from my getting is ears wet. Patient then completed his audiogram. Impression bilateral cerumen impaction with some mild otitis externa. Plan: The ears were cleaned in the patient is given a prescription of some Cortisporin otic suspension to be sure the ears dry up properly. He will follow up with Dr. Christina with h is audiogram and also to be sure the ears a become dry and healthy. Dr. Christina will see rakan im back in [place] next week. documented in this encounter Plan of Treatment Not on filedocumented as of this encounter Visit Diagnoses + + | Diagnosis | + + | Bilateral impacted cerumen - Primary Impacted cerumen | + + | Infective otitis externa of both ears | + + documented in this encounter
--- OUTSIDE RECORDS SUMMARY | ~2019-02-23 | XMS | Encounter Summary ---
Demographics + + + | Address | [address] | | | [place] [address] | + + + | Home Phone [...] Team Providers + +------+ + | Care Real Estate Operations Manager Name | Role | Phone [...] | 2018 | Pass | OP LOC [address] [place] [address] | | | | | | [place], [place] | | | | | | [address] | | | +--------+ + + + [...] Kelly | | | | | | [facility] [place] | | | | | | [address] | | | | | | | | +--------+---------+ + + + documented as of this encounter Visit Diagnoses Not on filedocumented in this encounter"
--- OUTSIDE RECORDS SUMMARY | ~2019-02-23 | XMS | Encounter Summary ---
Demographics + + + | Address | [address] | | | [place] [address] | + + + | Home Phone [...] Team Providers + +------+ + | Care Neonatal Surgeon Name | Role | Phone | + +------+ + | Paul Boss MD | PCP | | + +------+ + Encounter Details +--------+ + + + + | Date | Type | Department | Care Team | Description | +--------+ + + + + | 10/11/ | Hospital | [facility] | Tahir Handley | Spondylosis without | | 2018 | Encounter | MED CTR XRAY [address] | T, [address] | myelopathy or | | | | [place] | [address] [place] | radiculopathy, | | | | [place] [address] | [address] | lumbar region | | | | [phone] | | | | | | | Nurse, [facility] | | | | | | Grill Attendant, [facility] | | +--------+ + + + [...] | FL DESTRUCTION BY | Routin | 10/11/2017 | Spondylosis | Results for this | | NEUROLYTIC AGENT | e | 1:14 PM | without myelopathy | procedure are in the | | LUMBAR SACRAL | | PDT | or radiculopathy, | results section. | | | | | lumbar region | | + +--------+ + + + documented in this encounter Results FL DESTRUCTION BY NEUROLYTIC AGENT LUMBA (10/11/2017 1:14 PM PDT) + + | [...] Versed and 200 mcg fentanyl supervised by me and | | | administered by the radiology nurse during the procedure according to | | | [facility] conscious sedation protocol. At the conclusion of [...] Performing | Address | City/State/[facility] | Phone Number | [...] dexamethasone (PF) 10 mg/mL | Given | 10/12/19 | 15 mg | | | | injection 15 mg 15 mg, | | 18 2:31 | | | | | PERINEURAL, ONCE, Tiara 10/11/17 at | | PM PDT | | | | | 1330, For 1 dose | | | | | | + +--------+ +-------+------+------+ +---+---+ | | | +---+---+ + +-------+ +-------+---+---+ | lidocaine (PF) 4% injection 3 | Given | 10/12/19 | 3 mLs | | | | mL 3 mL, Other, ONCE, Tiara | | 18 2:31 | | | | | 10/11/17 at 1330, For 1 dose | | PM PDT | | | | + +-------+ +-------+---+---+ +---+---+ | | | +---+---+ + +-------+ +-------+---+ + | lidocaine buffered 1.3% | Given | 10/12/19 | 6 mLs | | Other | | injection 6 mL 6 mL, | | 18 1:49 | | | (Comment | | Intradermal, ONCE, Tiara 10/11/17 at | | PM PDT | | | ) | | 1330, For 1 dose | | | | | | + +-------+ +-------+---+ + +---+---+ | | | +---+---+ + +-------+ +-------+---+---+ | ropivacaine (NAROPIN) 5 mg/mL | Given | 10/12/19 | 3 mLs | | | | (0.5%) injection 3 mL 3 mL, | | 18 2:32 | | | | | PERINEURAL, ONCE, Tiara 10/11/17 at | | PM PDT | | | | | 1330, For 1 dose | | | | | | + +-------+ +-------+---+---+ +---+---+ | | | +---+---+ documented in this encounter"
--- OUTSIDE RECORDS SUMMARY | ~2019-02-23 | XMS | Encounter Summary ---
Demographics + + + | Address | [address] | | | [place] [address] | + + + | Home Phone [...] Team Providers + +------+ + | Care Commercial Truck Driver Name | Role | Phone | + +------+ + | Kait Velazquez MD | PCP | | + +------+ + Encounter Details +--------+ + + + + | Date | Type | Department | Care Team | Description | +--------+ + + + + | 11/07/ | Orders Only | [facility] | Provider, | | | 2019 | | SYSTEM GENERIC OP | MD Dave Weber | | | | | [address] | [place] | | | | | [address] [employer] [place], [place] | [place] [address] | | | | | [address] | | | | | | [phone] | | | +--------+ + + + [...]
--- OUTSIDE RECORDS SUMMARY | ~2019-02-23 | XMS | Encounter Summary ---
Demographics + + + | Address | [address] | | | [place] [address] | + + + | Home Phone | | + + + | Preferred Language | Unknown | + + + | Marital Status | | + + + | Shinto Affiliation | NRP | + + + [...] Team Providers + +------+ + | Care Bridal Consultant Name | Role | Phone | [...] Av | | | | | [facility], | [place], [place] | | | | | [place] [address] | [address] | | | | | [phone] | | | +--------+ + + + [...] Kelly | | | | | | [facility] [place] | | | | | | [address] | | | | | | | | +--------+---------+ + + + documented as of this encounter Visit Diagnoses Not on filedocumented in this encounter"
--- OUTSIDE RECORDS SUMMARY | ~2019-02-23 | XMS | Encounter Summary ---
Demographics + + + | Address | [address] | | | [place] [address] | + + + | Home Phone [...] Team Providers + +------+ + | Care Assistant Sales Director Name | Role | Phone | + [...] | | [address] | [place] [address] | location, | | | | [place] | [phone] | unspecified back | | | | [address] | | pain laterality, | | | | [phone] | | unspecified | | | | [...] facet arthrosis. Dictated and Signed by: Quinn Gumzan MD | | | Electronically signed: 02/02/2017 [...]
--- OUTSIDE RECORDS SUMMARY | ~2019-02-23 | XMS | Encounter Summary ---
Demographics + + + | Address | [address] | | | [place] [address] | + + + | Home Phone | | + + + | Preferred Language | Unknown | + + + | Marital Status | | + + + | Mosque Affiliation | Unknown | + + + | Race | Unknown | + + + | Ethnic Group | Unknown | + + + Author + + + | Author | [facility] | | | and [place] | + + + | Organization | [facility] | | | and [place] | + [...] Providers + +------+ + | Care Air Valve Mechanic Name | Role | Phone | + [...] | Specialty | Physical | Diagnoses | Bucky, | | | | Services | Therapy | Lumbar | Thomas | | | | Required | | facet | BALA Dorsey | | | | | | arthropathy | [address] | | | | | | [address] | [address] | | | | | | stenosis of | [address] | | | | | | lumbar | [place], | | | | | | region | [place] [address] | | | | | | Procedures | Phone: | | | | | | HIM 07/11/17 | [phone] | | | | | | | Fax: | | | | | | | [phone] | | +--------+ + + + + + Evaluate & Treat (Routine) +--------+ + + + + + | Status | Reason | Specialty | Diagnoses / | Referred By | Referred To | | | | | Procedures | Contact | Contact | +--------+ + + + + + | Closed | Specialty | Physical | Diagnoses | West, | Jenn, | | | Services | Medicine and | Lumbar | Thomas | Tahir Maldonado MD | | | Required | Rehabilitatio | facet | BALA Dorsey | [address] | | | | n | arthropathy | [address] [place] | | | | | [address] | [address] | [place], [place] | | | | | stenosis of | [address] | [address] Phone: | | | | | lumbar | Laurita Shay, | [phone] | | | | | region | [place] [address] | Fax: | | | | | | Phone: | [phone] | | | | | | [phone] | | | | | | | Fax: | | | | | | | [phone] | | +--------+ + + + + + Reason for Visit + + + | Reason | Comments | + + + | Follow-up | Discuss injections | + + + Encounter Details +--------+---------+ + + + | Date | Type | Department | Care Team | Description | +--------+---------+ + + + | 07/03/ | Office | [facility] | BuckyThomas | Lumbar facet | | 2018 | Visit | NEUROSURGERY [address] | BALA Dorsey [address] | arthropathy (Primary | | | | [address] | [address] | Dx); [place] | | | | [place], [place] | [place], [place] | stenosis of lumbar | | | | [address] | [address] | region | | | | [phone] | | | +--------+---------+ + + + [...] + + + | Blood Pressure | 127/73 | 07/03/2017 3:23 PM | | | | | PDT | | + + + + + | Pulse | 72 | 07/03/2017 3:23 PM | | | | | PDT [...] | 123 kg (271 lb 2.7 | 07/03/2017 3:23 PM | | | | oz) | PDT | | + + + + + | Height | 175.3 cm (5' 9") | 07/03/2017 3:23 PM | | | | | PDT | | + + + + + | Body Mass Index | 40.04 | 07/03/2017 3:23 PM | | | | | PDT | | + + + + + documented in this encounter Patient Instructions Patient Instructions Eli Sy, Shop Mechanic Helper - 07/03/2017 3:15 PM PDTIt was a pleasure seeing you today. Here is what we discussed. I will put in a referral for you to see Dr. Handley. If you have not heard from us by Sunday or Sunday next week give us a call to check on your referral. I will also put in a referral for physical therapy to the [facility] in [place] Electronically s igned by Eli Sy Shop Mechanic Helper at 07/03/2017 3:56 PM PDT documented in this encounter Progress Notes Thomas Lawler PA-C - 07/03/2017 3:15 PM PDTFormatting of this note might be differ ent from the original. Eli Beauchamp Shop Mechanic Helper [address] [facility], [address] [place] [address] FAX: NEUROSURGERY FOLLOW-UP CHIEF COMPLAINT: Chief Complaint Patient presents with Follow-up Discuss injections HISTORY OF PRESENT ILLNESS: The patient is a 72 y.o. male that was seen 02/02/17 and 04/13 for back and left leg pain. He returns and overall is doing ok. The patient has had a major change in their neurologic symptoms . His leg symptoms have improved. He no longer has radicular symptoms pain in his legs but he is had increased back pain he feels like the physical therapy helped it. The patient complains of intermittent mid back pain. This pain is new since he was last seen. He states he no longer has pain in his left calf. He is cur rently doing home therapy. He is walking 5,000 steps a day when the weather is good. Injections of his L4-5 bilateral facets in April 2017. He initially had really good impr ovement of pain for the first couple of hours. The first couple days he experienced 40-50% improvment. 2-3 days after the injection symptoms we back to where they were prior to the in jection. He did go see Dr. Flores. For ongoing pain management Currently he is taking perco cet for his pain. He is having more back pain than leg pain. When he did physical therapy th e pain moved from his leg to his back. He has put on about 25 pounds since last October. He wo uld be interested in further physiatry evaluation and consideration of ablative therapy and felt that would be of benefit. He was still like to avoid surgery. It would also be intere sted in trying physical therapy again for his neck discomfort PAST MEDICAL HISTORY: Past Medical History: Diagnosis [...] Right COLONOSCOPY 2008 [place] CORONARY ANGIOPLASTY 10/27/2016 [place] FEMUR SURGERY Left KNEE ARTHROSCOPY Left 2004 NOSE SURGERY SHOULDER SURGERY Left 1978 [facility]; [facility] 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 TOTAL KNEE ARTHROPLASTY Left 2015 [facility]; .[facility], [place]. VASECTOMY CURRENT MEDICATIONS: Current Outpatient Prescriptions [...] 4 times d aily as needed (Taking 1.5 tablets daily). warfarin (COUMADIN) 5 mg tablet Take 7.5 [...] problems Paternal Uncle Blood Clots REVIEW OF SYSTEMS GENERALLY: No fever, no night sweats, no anemia, no fatigue, no recent profound weight ch anges. EYES: No eye problems, no use of corrective lenses, no eye injury, no double vision, no bl indness. EARS, NOSE, AND THROAT: No changes in [...] pain in back. PSYCHIATRIC: No depression, no sleep disorders, no [...] painful or difficult urination, no incontinence. ENDOCRINE: + diabetes, no thyroid disease, no osteopenia or osteoporosis, no breast draina ge. SKIN: No breast lumps, no skin changes, no rashes, no itches. HEMATOLOGIC/LYMPHATIC: No enlarged lymph nodes, no easy or unusual bleeding, no personal h istory of cancer. RHEUMATOLOGIC: + joint arthritis, no rheumatoid arthritis. INTERIM PHYSICAL EXAMINATION: Blood pressure 127/73, pulse 72, height 1.753 m (5' 9"), weight 123 kg (271 lb 2.7 oz). Bod y mass index is 40.04 kg/m. GENERAL: Antonio Azevedo Jr. is in [...] has no apparent deficits with short or fpc memory. CRANIAL NERVES: Fundoscopic Exam: The optic [...] Intrinsics 5 5 Ulnar Intrinsics 5 5 Medicaid Billing Clerk Strength 5 5 Hip Flexion 5 5 [...] test of the hips is negative bilaterally. ASSESSMENT: No diagnosis found. Past Medical History: Diagnosis Date Atherosclerosis Atrial [...] leg has improved since he was seen. I had a lengthy discussion with the patient about his options for care including surgical a nd non-surgical options. The patient decided that their best option based on my opinion was to continue with weight loss. We will plan for referral to physiatry for formal evaluation and consultation regarding ongoing conservative management. Today we discussed the potenti als for ablative therapy to help with his back pain. I will also provide a referral for physical therapy. After approximately 6 months or so I' ve asked the patient to return to the office to check on his progress ELECTRONICALLY SIGNED BY: Eli Beauchamp, Shop Mechanic Helper, 07/03/2017 15:32 I, Thomas Lawler PA-C, personally performed the services described in this documentation , as scribed by Thao Beauchamp MA in my presence, and it is both accurate and complete. Thomas Lawler PA-C 07/03/2017 documented in this encounter Plan of Treatment + + +--------+ + + | Name | Type | Priori | Associated Diagnoses | Order Schedule | | | | ty | | | + + +--------+ + + | JENN | Outpatient | Routin | Lumbar facet | Ordered: 07/03/2017 | | | Referral | e | arthropathy | | | | | | [place] stenosis | | | | | | of lumbar region | | + + +--------+ + + | OUTPATIENT PT | Outpatient | Routin | Lumbar facet | Ordered: 07/03/2017 | | EXTERNAL | Referral | e | arthropathy | | | | | | [place] stenosis | | | | | | of lumbar region | | + + +--------+ + + documented as of this encounter Visit Diagnoses + + | Diagnosis | + + | Lumbar facet arthropathy - Primary Lumbosacral spondylosis without myelopathy | + + | [place] stenosis of lumbar region Spinal stenosis, lumbar region, without | | neurogenic claudication | + + documented in this encounter
--- OUTSIDE RECORDS SUMMARY | ~2019-02-23 | XMS | Encounter Summary ---
Demographics + + + | Address | [address] | | | [place] [address] | + + + | Home Phone | | + + + | Preferred Language | Unknown | + + + | Marital Status | | + + + | Mandaen Affiliation | Unknown | + + + | Race | Unknown | + + + | Ethnic Group | Unknown | + + + Author + + + | Author | [facility] | | | and [place] | + + + | Organization | [facility] | | | [...] Team Providers + +------+ + | Care Inventory Manager Name | Role | Phone | + +------+ + | Kait Velazquez MD | PCP | | + +------+ + Reason for Visit + + + | Reason | Comments | + + + | Follow-up | Back Pain | + + + Encounter Details +--------+---------+ + + + | Date | Type | Department | Care Team | Description | +--------+---------+ + + + | 08/08/ | Office | [facility] | Shemar Gillis, | Lumbar radiculopathy | | 2019 | Visit | PHYSIATRY [address] | PA-C [address] | (Primary Dx) | | | | [place], | [address] [place] | | | | | [place] [address] | [place] [address] | | | | | [phone] | [phone] | | | | | | | [...] + + + | Blood Pressure | 127/78 | 08/08/2018 4:04 PM | | | | | PDT | | + + + + + | Pulse | 88 | 08/08/2018 4:04 PM | | | | | PDT [...] Weight | 123.4 kg (272 lb) | 08/08/2018 4:04 PM | | | | | PDT | | + + + + + | Height | 175.3 cm (5' 9") | 08/08/2018 4:04 PM | | | | | PDT | | + + + + + | Body Mass Index | 40.17 | 08/08/2018 4:04 PM | | | | | PDT | | + + + + + documented in this encounter Patient Instructions Patient Instructions Shemar Gillis PA-C - 08/08/2018 4:20 PM PDTWe will request updated l abs from Dr Velazquez and call with what we find. Bilateral L5/S1 epidural steroid injections documented in this encounter Progress Notes Shemar Gillis PA-C - 08/08/2018 4:20 PM PDTFormatting of this note might be different fro m the original. [address] [facility] [address] [place], [place] [address] FAX: PHYSICAL MEDICINE AND REHABILITATION H&P CHIEF COMPLAINT: Chief Complaint Patient presents with Follow-up Back Pain HISTORY OF PRESENT ILLNESS: The patient is [...] RFA therapy of the lumbar facet joints 05/2018 and r eports relief of facet type pain. He reports his pain is worse with standing, walking, driving over bumps. His pain is relie garth with sitting especially in the recliner. He describes his pain is more of the achy thro bbing to the lower back buttocks region. He does not report any paresthesias or weakness at this time. He is no longer taking Celebrex due to discontinuation by PCP. He reports Domi brex offered significant relief in pain and symptoms. Treatments for these complaints have included physical [...] tablet by mouth 2 times daily. 4 levothyroxine (SYNTHROID) 50 mcg tablet Take [...] of systems was negative. PHYSICAL EXAMINATION: Vitals: 08/08/18 1604 BP: 127/78 Pulse: 88 PainSc: 5 PainLoc: Back Body mass index is 40.17 kg/m. GENERAL: The patient is well developed and well nourished. does not appear uncomfortable when seated. HEENT: HEAD/FACE: EYES: EARS: NASOPHARNYX: [...] alert, and oriented to time, place, person. follows simple and complex commands. speech is fluent. comprehends speech well. has no apparent deficits with short or halfway memory. has appropriate fund of knowledge Cranial nerves [...] the left at L4/L5. ASSESSMENT: 1. 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 Unfortunately Antonio Mejia Azevedo Jr. continues to have significant discomfort. It appears to me that the pain is primarily coming from L5/S1 region. I did feel that Antonio Azevedo Jr. would be a good candidate for interventional pr ocedures and I offered a repeat bilateral L5/S1 TFEIS to be done. Labs have been requested from PCP regarding kidney function. If kidney function looks n ormal we will restart him on Celebrex due to significant past relief with Celebrex. If kidn ey function is compromised we'll consider topical diclofenac as it is minimally processed th rough kidneys. Discussed spinal cord stimulator today. Patient is not having much radicular symptoms o r nerve-like pain. He may not receive adequate relief with spinal cord stimulator and at th is time does not seem to be a good option. 5) Patient will follow up with me 3 weeks post injection/as needed to discuss any imaging a nd/or progress with today's treatment plan. I spent 30 minutes in visit with Antonio Azevedo Jr. today with the majority of time s pent counselling the patient on diagnosis, options for care, and coordinating care. CC:Kait Velazquez MD documented in this encounter Plan of Treatment [...] +---------+ + + LABS - EXTERNAL SCAN (08/19/2018 [...]
--- OUTSIDE RECORDS SUMMARY | ~2019-02-23 | XMS | Encounter Summary ---
Demographics + + + | Address | [address] | | | [place] [address] | + + + | Home Phone | | + + + | Preferred Language | Unknown | + + + | Marital Status | | + + + | Bahai Affiliation | Unknown | + + + | Race | Unknown | + + + | Ethnic Group | Unknown | + + + Author + + + | Author | [facility] | | | and [place] | + + + | Organization | [facility] | | | [...] Team Providers + +------+ + | Care Checker In Name | Role | Phone | [...] | Lumbar | Ender, | [address] | | | | | radiculopath | Tahir Maldonado, MD | [place], | | | | | y | [address] | [place] | | | | | Procedures | [place] | [address] | | | | | DE INJECT | [place], [place] | Phone: | | | | | ANES/STEROID | [address] | [phone] | | | | | FOR[place] | Phone: | Fax: | | | | | LUMBAR/SACRA | [phone] | [phone] | | | | | L W IMG | Fax: | | | | | | GUIDE ,1 | [phone] | | | | | | LEVEL DE | | | | | | | [...] + + | 05/30/ | Hospital | [facility] | Shemar Gillis, | Lumbar radiculopathy | | 2019 | Encounter | MED CTR XRAY [address] | PA-C [address] | | | | | [place] | [address] [place] | | | | | [place] [address] | [place] [address] | | | | | [phone] | [phone] | | | | | | | | | | | | Button Clamper, [facility] | | +--------+ + + + [...] 3:52 | | | | | ONCE, [facility] 09/12/18 at 1545, For 1 | | [...]
--- OUTSIDE RECORDS SUMMARY | ~2019-02-23 | XMS | Encounter Summary ---
Demographics + + + | Address | [address] | | | [place] [address] | + + + | Home Phone | | + + + | Preferred Language | Unknown | + + + | Marital Status | | + + + | Baptist Affiliation | Unknown | + + + | Race | Unknown | + + + | Ethnic Group | Unknown | + + + Author + + + | Author | [facility] | | | and [place] | + + + | Organization | [facility] | | | [...] Team Providers + +------+ + | Care Pewter Caster Name | Role | Phone | + [...] | Spondylosis | [place], | [address] | | | | | without | Tahir Maldonado MD | [place], | | | | | myelopathy | [address] | [place] | | | | | or | [place] | [address] | | | | | radiculopath | [place], [place] | Phone: | | | | | y, lumbar | [address] | [phone] | | | | | region | Phone: | Fax: | | | | | Procedures | [phone] | [phone] | | | | | [place] INJ | Fax: | | | | | | DX/THER AGNT | [phone] | | | | | | PARAVERT | | | | | | | FACET JOINT, | | | | | | | LUMBAR/SAC, | | | | | | | 1ST LEVEL | | | | | | | [place] INJ | | | | | | [...] + + | 09/11/ | Hospital | [facility] | Tahir Handley | Spondylosis without | | 2018 | Encounter | MED CTR XRAY [address] | T, [address] | myelopathy or | | | | [address] [place] | [address] [place] | radiculopathy, | | | | [place] [address] | [address] | lumbar region | | | | [phone] | | | | | | | Solvent Plant TreaterJames | | +--------+ + + + + [...]
--- OUTSIDE RECORDS SUMMARY | ~2019-02-23 | XMS | Encounter Summary ---
Demographics + + + | Address | [address] | | | [place] [address] | + + + | Home Phone [...] Team Providers + +------+ + | Care Packing Tractor Machine Operator Name | Role | Phone | [...] + + | 10/11/ | Office | [facility] | Shemar Gillis, | Lumbar spondylosis | | 2018 | Visit | PHYSIATRY [address] | PA-C [address] | (Primary Dx); DDD | | | | [place], | [address] [place] | (degenerative disc | | | | [place] [address] | [place] [address] | disease), lumbar; | | | | [phone] | Lumbar facet | | | | [...] not feel pain. You must have a lease purchase truck driver to get home from the hospital. [...] a visually stunning, short, and informative video: [email or web address]/video/[email or web address]-[email or web address]-video The facet joint is located when the [...] of blood sugars if you are diabetic. long-term risk can lead to osteoporosis which is [...] weight on the joint Date Last Reviewed: 06/14/201619991019-0470 [employer]. [address] [place] [address]. All righ ts reserved. This information is [...]
--- OUTSIDE RECORDS SUMMARY | ~2019-02-23 | XMS | Encounter Summary ---
Demographics + + + | Address | [address] | | | [place] [address] | + + + | Home Phone [...] Providers + +------+ + | Care Senior Research Consultant Name | Role | Phone | [...] + + | 01/30/ | Office | [facility] | Mercedes Berrios | Coronary artery | | 2019 | Visit | CARDIOLOGY BARRY | [address] | disease involving | | | | [address] | [place] [address] | [place] coronary | | | | [address] | [place] [address] | artery of [place] | | | | [place] | [phone] | heart without angina | | | | [address] | | pectoris (Primary | | | | [phone] | | Dx); Status post | | [...] d exercise Stop Benadryl, as to much longterm anticholinergic side effects, try saline sinus rinse [...] risk assessment HISTORY OF PRESENT ILLNESS: Mr. 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 He reports he will [...] He quit smoking in 1990 with a 51-hiym-ofgf history but denies any ongoing pulmonary diseas [...] recreational or illicit drug use. Lives in [place] . to [place]. Since June 2018 Outpatient [...] results found for: TOTEPI CARDIAC PROCEDURES/IMAGING Last angiogram:10/27/2016:[facility]. Left main with no significant disease. [...] QRS leads III, aVL, aVF, previous inferior DC. Rate 90 bpm, MD 126 ms, QRS 86 ms, QTC 420 ms, tracing personally reviewed by me EK02/06/2018: Normal sinus rhythm, low voltage QRS to limb leads, V1. Rate 70 bpm, MD 1 34 ms, QRS 78 ms, QTC 412 ms, old inferior DC, tracing personally reviewed by me EK12/26/2018: Normal sinus rhythm, persistent low voltage QRS to inferior leads consisten t with previous inferior DC, low voltage QRS to limb leads V1, V2. Rate 69 bpm, MD 140 ms, QRS 82 ms, QTC 430 [...] risk evaluation for planned back surgery at [facility] in [place], [place] by Dr. Finnegan He has problems [...] echo performed on January 07, 2019 at [facility] was a normal echo with an EF [...] normal testing. 1. Coronary artery disease involving [place] coronary artery of [place] heart without angina pectoris 2. Status post insertion of drug-eluting stent into left anterior descending (LAD) artery 3. Paroxysmal atrial fibrillation (HCC) 4. Essential hypertension 5. Dyslipidemia 6. Statin intolerance 7. Recurrent deep vein thrombosis (DVT) ([facility]) 8. Chronic anticoagulation 9. Hypothyroidism, unspecified type 10. Type 2 diabetes mellitus with stage 3 chronic kidney disease, without long-term current use of insulin ([facility]) 11. Pre-operative cardiovascular examination 12. [...] past surgical history. Problem list. Shreyas CHAMPAGNE [facility] Cardiology 01/31/2019 docum ented in this encounter Plan of Treatment Not on filedocumented as of this encounter Visit Diagnoses + + | Diagnosis | + + | Coronary artery disease involving [place] coronary artery of [place] heart without | | angina pectoris - [...] + | Recurrent deep vein thrombosis (DVT) ([facility]) | + + | Chronic anticoagulation Encounter for long-term (current) use of anticoagulants | + + | Hypothyroidism, unspecified type | + + | Type 2 diabetes mellitus with stage 3 chronic kidney disease, without long-term | | current use of insulin ([facility]) | + + | Pre-operative cardiovascular examination | + + | Screening for iron deficiency anemia | + + documented in this encounter
--- OUTSIDE RECORDS SUMMARY | ~2019-02-23 | XMS | Encounter Summary ---
Demographics + + + | Address | [address] | | | [place] [address] | + + + | Home Phone | | + + + | Preferred Language | Unknown | + + + | Marital Status | | + + + | Restorationist Affiliation | Unknown | + + + | Race | Unknown | + + + | Ethnic Group | Unknown | + + + Author + + + | Author | [facility] | | | and [place] | + + + | Organization | [facility] | | [...] Team Providers + +------+ + | Care Shop Steward Name | Role | Phone | + [...] + + | 04/04/ | Office | [facility] | Artur Guerin MD | Bilateral impacted | | 2017 | Visit | OTOLARYNGOLOGY [address] | [address] [place] | cerumen (Primary | | | | [address] | [address] [place], | Dx); Infective | | | | [place], [place] | [place] [address] | otitis externa of | | | | [address] | [phone] | both ears | | | | [phone] | | | +--------+---------+ + + + [...] sent for a hearing examination by Dr. Christina. It was note d that his ear [...] Christina will see rakan im back in [place] next week. documented in this encounter Plan of Treatment Not on filedocumented as of this encounter Visit Diagnoses + + | Diagnosis | + + | Bilateral impacted cerumen - Primary Impacted cerumen | + + | Infective otitis externa of both ears | + + documented in this encounter
--- OUTSIDE RECORDS SUMMARY | ~2019-02-23 | XMS | Encounter Summary ---
Demographics + + + | Address | [address] | | | [place] [address] | + + + | Home Phone | | + + + | Preferred Language | Unknown | + + + | Marital Status | | + + + | Evangelical Affiliation | NRP | + + + [...] Team Providers + +------+ + | Care Ore Crusher Name | Role | Phone | + [...] | | | | [address] | [place] [address] | | | | | [place], [place] | [phone] | | | | | [address] | | | | | | [phone] | | | +--------+ + + + [...] Kelly | | | | | | [place], [place] | | | | | | [address] | | | | | | | | +--------+---------+ + + + documented as of this encounter Visit Diagnoses Not on filedocumented in this encounter"
--- OUTSIDE RECORDS SUMMARY | ~2019-02-23 | XMS | Encounter Summary ---
Demographics + + + | Address | [address] | | | [place] [address] | + + + | Home Phone | | + + + | Preferred Language | Unknown | + + + | Marital Status | | + + + | Jewish Affiliation | Unknown | + + + [...] Team Providers + +------+ + | Care Sessions Clerk Name | Role | Phone | [...] [address] | | | | | [place], | [address] [place] | | | | | [place] [address] | [place] [address] | | | | | [phone] | [phone] | | | | | | | [...]
--- OUTSIDE RECORDS SUMMARY | ~2019-02-23 | XMS | Encounter Summary ---
Demographics + + + | Address | [address] | | | [place] [address] | + + + | Home Phone | | + + + | Preferred Language | Unknown | + + + | Marital Status | | + + + | Denominational Affiliation | Unknown | + + + | Race | Unknown | + + + | Ethnic Group | Unknown | + + + Author + + + | Author | [facility] | | | and [place] | + + + | Organization | [facility] | | | [...] Team Providers + +------+ + | Care Putty Tinter Maker Name | Role | Phone | + [...] | | [address] | [place] [address] | | | | | [place] | [phone] | | | | | [address] | | | | | | [phone] | | | +--------+ + + + [...]
--- OUTSIDE RECORDS SUMMARY | ~2019-02-23 | XMS | Encounter Summary ---
Demographics + + + | Address | [address] | | | [place] [address] | + + + | Home Phone | | + + + | Preferred Language | Unknown | + + + | Marital Status | | + + + | Faith Affiliation | Unknown | + + + | Race | Unknown | + + + | Ethnic Group | Unknown | + + + Author + + + | Author | [facility] | | | and [place] | + + + | Organization | [facility] | | [...] Team Providers + +------+ + | Care Resident Athletic Trainer Name | Role | Phone | + +------+ + | Kait Velazquez MD | PCP | | + +------+ + Encounter Details +--------+ + + + + | Date | Type | Department | Care Team | Description | +--------+ + + + + | 10/16/ | Imaging | [facility] | Provider, | | | 2019 | Exam | MED CTR EXTERNAL | MD [address] | | | | | IMAGING | [address] | | | | | [phone] | [place] [address] | | +--------+ + + + + [...] MRI LUMBAR SPINE WO | Routin | 10/07/2018 | | Results for this | | CONTRAST | e | 12:00 AM | | procedure are in the | | | | PDT | | results section. | + +--------+ + + + documented in this encounter Results MRI Lumbar Spine wo Contrast (10/07/2018 12:00 AM PDT) + + | Specimen | + + | | + + + + + | Narrative | Performed At | + + + | External films for comparison only | [facility] | | | | | No results will be in the chart. | | + + + + +---------+ + + | Performing | Address | City/State/Zipcode | Phone Number | | Organization | | | | + +---------+ + + | [facility] | | | | + +---------+ + + documented in this encounter Visit Diagnoses Not on filedocumented in this encounter"
--- OUTSIDE RECORDS SUMMARY | ~2019-02-23 | XMS | Encounter Summary ---
Demographics + + + | Address | [address] | | | [place] [address] | + + + | Home Phone | | + + + | Preferred Language | Unknown | + + + | Marital Status | | + + + | Yarsani Affiliation | Unknown | + + + | Race | Unknown | + + + | Ethnic Group | Unknown | + + + Author + + + | Author | [facility] | | | and [place] | + + + | Organization | [facility] | | | and [...] Providers + +------+ + | Care Manager Subway Name | Role | Phone | + [...] [address] | | | | | [place], | [place], | | | | | [place] [address] | [place] [address] | | | | | [phone] | [phone] | | | | | | | [...]
--- OUTSIDE RECORDS SUMMARY | ~2019-02-23 | XMS | Encounter Summary ---
Demographics + + + | Address | [address] | | | [place] [address] | + + + | Home Phone | | + + + | Preferred Language | Unknown | + + + | Marital Status | | + + + | Episcopal Affiliation | Unknown | + + + [...] Team Providers + +------+ + | Care Commissioning Manager Name | Role | Phone | [...] | Specialty | Physical | Diagnoses | Sanjay Finnegan | OP ST | | | Services | Therapy | Lumbar | [address] | [facility] | | | Required | | radiculopath | [address] | HOSPITAL | | | | | y Lumbar | [place], | [address] | | | | | foraminal | [place] [address] | AVE | | | | | stenosis | Phone: | [place], [place] | | | | | Osteoarthrit | [phone] | [address] | | | | | is of lumbar | Fax: | Phone: | | | | | spine, | [phone] | [phone] | | | | | unspecified | | Fax: | | | | | spinal | | [phone] | | | | | osteoarthrit | | | | | | | is | | | | | | | complication | | | | | | | status | | | | | | | Facet | | | | | | | arthropathy, | | | | | | | lumbar | | | +--------+ + + + + + Reason for Visit + + + | Reason | Comments | + + + | Back Pain | left leg pain | + + + Evaluate & Treat (Routine) +--------+--------+ + + + + | Status | Reason | Specialty | Diagnoses / | Referred By | Referred To | | | | | Procedures | Contact | Contact | +--------+--------+ + + + + | Closed | | Neurosurgery | Diagnoses | Gera, | Sanjay Finnegan | | | | | Spondylosis | Paul Boyle MD [address] | | | | | Procedures | MD Alex | [address] | | | | | MS OFFICE | [address] | [place] | | | | | CONSULTATION | Gladys | [address] | | | | | NEW/ESTAB | [address] | Phone: | | | | | PATIENT [address] | [place], | [phone] | | | | | MIN | [place] | Fax: | | | | | | [address] | [phone] | | | | | | Phone: | | | | | | | [phone] | | | | | | | Fax: | | | | | | | [phone] | | +--------+--------+ + + + + Encounter Details +--------+---------+ + + + | Date | Type | Department | Care Team | Description | +--------+---------+ + + + | 02/02/ | Office | [facility] [place] | Sanjay Finnegan MD | Lumbar radiculopathy | | 2017 | Visit | NEUROSURGERY [address] | [address] | (Primary Dx); | | | | [address] | [place] [address] | Lumbar foraminal | | | | [place], [place] | [phone] | stenosis; | | | | [address] | | Osteoarthritis of | | | | [phone] | Edvin Hope, | lumbar spine, | | | | | PA-C [address] | unspecified spinal | | | | | [address] [place] | osteoarthritis | | | | | [place] [address] | complication status; | | | | | [phone] | Facet arthropathy, | | | | | | lumbar [...] + + + | Blood Pressure | 118/64 | 02/02/2017 9:58 AM | | | | | PDT | | + + + + + | Pulse | 72 | 02/02/2017 9:58 AM | | | | | PDT [...] | 121 kg (266 lb 12.1 | 02/02/2017 9:58 AM | | | | oz) | PDT | | + + + + + | Height | 175.3 cm (5' 9") | 02/02/2017 9:58 AM | | | | | PDT | | + + + + + | Body Mass Index | 39.39 | 02/02/2017 9:58 AM | | | | | PDT | | + + + + + documented in this encounter Progress Notes Edvin Hope PA-C - 02/02/2017 9:30 AM PDTFormatting of this note might be diffe rent from the original. Edvin Hope PA-C and Sanjay Finnegan MD [address] [place] [address], [address] [place], [place] [address] FAX: [phone] NEUROSURGERY HISTORY AND PHYSICAL EXAMINATION CHIEF COMPLAINT: Chief Complaint Patient presents with Back Pain left leg pain HISTORY OF PRESENT ILLNESS: The patient is a 72 y.o. male with the complaint of back and l eft leg pain symptoms that have been moderate and intermittent for years . The patient bryant cribes lower back and left leg pain that started worsening since October of 2016. Patient had a coronary angioplasty in October 272016. Patient noticed that two weeks after coronary a ngioplasty his back and leg pain started worsening to the point he has sought out medical ca re and is now taking opioids to help with his back and left leg pain.The patient lives a jessie y active lifestyle normally, and has held on previous ankle surgery due to the time it would lay him up. The symptoms have been gradually worsening. He rates the pain as severe. The symptoms are intermittent. He describes the pain as sharp, numbing, shooting and aching. The patient describes leg symptoms that occur on primarily on the left. The leg symptoms a ccount for over half of his symptoms. The leg symptoms are intermittent, and the symptoms t ravel from the back to his lateral hip. His notes lower leg symptoms that feels like "knife going into his calf".. The patient also describes the loss of the ability to walk distances without sitting. Patient is very active however back and bilateral leg pain have been limit ing him lately from enjoying his active life style. The patient does not report any change in bowel or bladder function recently. His symptoms improve with rest and changing position. His symptoms worsen with standing, sitting, walking, running, kneeling, bending and twistin g. He has tried Opioids and Muscle relaxers. Patient used muscle relaxer's for a while however they made him fuzzy so he stopped taking them. The patient is currently taking opioids Oxy codone-acetaminophen 5/325 mg. Patient is limiting consumption of pain pills because they ma ke him itchy. These measures are still helping. Patient is on Plavix and will be for 6 month s. PAST MEDICAL HISTORY: Past Medical History: Diagnosis [...] Right COLONOSCOPY 2008 [facility] CORONARY ANGIOPLASTY 10/27/2016 [place] FEMUR SURGERY Left KNEE ARTHROSCOPY Left 2005 NOSE SURGERY SHOULDER SURGERY Left 1979 Weeks; '[facility]. SHOULDER SURGERY Right 2006 SKIN CANCER EXCISION 2012 Forehead squamous cell SKIN GRAFT Right Ankle TONSILLECTOMY AND ADENOIDECTOMY TOTAL KNEE ARTHROPLASTY Right 2013 Rojas; '[facility] Or. TOTAL KNEE ARTHROPLASTY Left 2015 Rojas; [place] Or. VASECTOMY CURRENT MEDICATIONS: Current [...] by mouth 4 times d aily as needed. warfarin (COUMADIN) 5 mg tablet Take 7.5 [...] patient reports that he quit smoking about 26 years ago. His smoking use included Ciga [...] THROAT: No changes in taste or smell, + hearing difficulty, + ringing in t he ears, no ear drainage, no dizziness, no voice changes, no difficulty swallowing, + signif icant snoring, + sleep apnea, no sinus problems, + major dental work. NEUROLOGICALLY: Please see the review of systems discussed above in the history of present illness. In addition, the patient has numbness/pain of legs, muscle aching, head injury pa in in back. PSYCHIATRIC: No depression, no sleep disorders, no anxiety, no bipolar disorder, no psycho tic episodes. CARDIOVASCULAR: No heart attacks, no heart murmur, no heart fluttering, + chest pain, + an kle swelling. LUNG DISEASE: No shortness of breath, no cough, no tuberculosis, no bloody cough, no asth ma, no emphysema/COPD. GASTROINTESTINAL: No bowel disease, no nausea or vomiting, no rectal bleeding, no constipa tion, no stool incontinence, no liver disease, no gallbladder disease, no abdominal pain, no ulcers. KIDNEY DISEASE: No urinary frequency, no painful or difficult urination, no incontinence. ENDOCRINE: + diabetes, + thyroid disease, no osteopenia or osteoporosis, no breast drainag e. SKIN: No breast lumps, + skin changes, no rashes, no itches. HEMATOLOGIC/LYMPHATIC: No enlarged lymph nodes, no easy or unusual bleeding, no personal h istory of cancer. RHEUMATOLOGIC: + joint arthritis, no rheumatoid arthritis. PHYSICAL EXAMINATION: Blood pressure 118/64, pulse 72, height 1.753 m (5' 9"), weight 121 [...] tenderness in the midline of the L4, L5, S1 levels. To pal pation, there is no significant myofascial tenderness. There is significant pain to provacative testing of the [...] deficits with short or long term care social worker memory. CRANIAL NERVES: II: Acuity is intact. [...] Intrinsics 5 5 Ulnar Intrinsics 5 5 Product Manager Medical Device Strength 5 5 Hip Flexion 5 4* Hip Extension 5 4+ Knee Flexion 5 4 Knee Extension 5 5 Dorsiflexion 5 5 Extensor Hallicus Longus 5 5 Plantarflexion 5 5 SENSORY EXAM: Sensory exam shows diminished sensation to light touch or pain throughout the lower extremi ties. REFLEXES: (2 OR 2+ IS NORMAL) REFLEX: RIGHT LEFT BICEPS 2 2 BRACHIORADIALIS 2 2 TRICEPS 2 2 PATELLAR 0 0 ACHILLES 2 2 RIZVI'S ABSENT ABSENT PLANTAR DOWNGOING DOWNGOING GAIT: Gait is steady. PERIPHERAL NERVE/MISC: Tinel is negative at the wrists and elbows bilaterally. Phalen is negative. Straight leg raise is negative bilaterally. Quinn's test of the hips is negative bilaterally. TEST AND RADIOGRAPHIC REVIEW: The patient's imaging was reviewed in detail with the patient today during the visit. The MRI from 2017 shows Foraminal stenosis at L4-5 and L5-S1. Lumbar x-rays show degeneration but no major instability. ASSESSMENT: NEUROSURGICAL DIAGNOSES: Encounter Diagnoses Name Primary? Lumbar radiculopathy Yes Lumbar foraminal stenosis Osteoarthritis of lumbar spine, unspecified spinal osteoarthritis complication status Facet arthropathy, lumbar GENERAL DIAGNOSES: Past Medical History: Diagnosis Date Atherosclerosis Atrial fibrillation (HCC) Enlarged prostate with lower urinary tract symptoms (LUTS) Essential hypertension Hyperlipidemia Hypothyroidism Impaired fasting glucose Lumbar disc disease with radiculopathy Obesity Osteoarthrosis Osteoarthrosis involving lower leg Prostate hyperplasia with urinary obstruction Skin neoplasm malignant Venous insufficiency PLAN: Antonio Azevedo Jr. presented today, and it was a pleasure seeing this patient and ass essing his neurologic problems. The patient has Multilevel spondylosis causing foraminal stenosis, worse at L4-5 and L5-S1 on the left. This likely explains a portion of the patient's symptoms. The patient has pro gressive symptoms despite non-operative measures. I had a lengthy discussion with the patient about his options for care including surgical a nd non-surgical options. In discussing the surgical options, we discussed in detail the patient's options for a mini kay invasive decompression at L4-S1. The patient understands that in most instances the r ecovery from surgery can be lengthy and sometimes difficult. Before considering surgery and due to his mandatory time with Plavix, we recommended he try some conservative care. The patient would like to try additional conservative measures that I have prescribed today . He will return in 2-3 months to discuss his progress and options again. ELECTRONICALLY SIGNED BY: Edvin Hope PA-C and Sanjay Finnegan MD, 02/02/2017 10:59 I, Edvin Hope PA-C, personally performed the services described in this documentati on, as scribed by Charmaine Anna CMA in my presence, and it is both accurate and complete. Edvin Hope PA-C 02/02/2017 documented in this encou nter Plan of Treatment + + +--------+ + + | Name | Type | Priori | Associated Diagnoses | Order Schedule | | | | ty | | | + + +--------+ + + | Physical Medicine | Outpatient | Routin | Lumbar | Ordered: 02/03/2017 | | Rehab, External - | Referral | e | radiculopathy | | | AMB Referral | | | Lumbar foraminal | | | | | | stenosis | | | | | | Osteoarthritis of | | | | | | lumbar spine, | | | | | | unspecified spinal | | | | | | osteoarthritis | | | | | | complication status | | | | | | Facet arthropathy, | | | | | | lumbar | | + + +--------+ + + documented as of this encounter Visit Diagnoses + + | Diagnosis | + + | Lumbar radiculopathy - Primary Thoracic or lumbosacral neuritis or radiculitis, | | unspecified | + + | Lumbar foraminal stenosis Spinal stenosis, lumbar region, without neurogenic | | claudication | + + | Osteoarthritis of lumbar spine, unspecified spinal osteoarthritis complication status | + + | Facet arthropathy, lumbar Lumbosacral spondylosis without myelopathy | + + documented in this encounter
--- OUTSIDE RECORDS SUMMARY | ~2019-02-23 | XMS | Encounter Summary ---
Demographics + + + | Address | [address] | | | [place] [address] | + + + | Home Phone | | + + + | Preferred Language | Unknown | + + + | Marital Status | | + + + | Congregational Affiliation | Unknown | + + + [...] Team Providers + +------+ + | Care Steel Post Installer Supervisor Name | Role | Phone | [...] Description | +--------+--------+ + + + | 01/03/ | Refill | [facility] [place] | Carey, | Medication Refill | | 2018 | | PHYSIATRY [address] | [address] | | | | | [place], | [place], | | | | | [place] [address] | [place] [address] | | | | | [phone] | [phone] | | | | | | | [...]
--- OUTSIDE RECORDS SUMMARY | ~2019-02-23 | XMS | Encounter Summary ---
Demographics + + + | Address | [address] | | | [place] [address] | + + + | Home Phone [...] Team Providers + +------+ + | Care Visual Effects Editor Name | Role | Phone | + [...] + + | 01/02/ | Office | [facility] | [place], | Lumbar facet | | 2017 | Visit | PHYSIATRY [address] | [address] | arthropathy (HCC) | | | | [place], | [place], | (Primary Dx); Lumbar | | | | [place] [address] | [place] [address] | radicular pain; | | | | [phone] | [phone] | Lumbar spondylosis; | | | | [...] from the original. Елена Patino PA-C [address] [facility], [address] [place] [address] FAX: PHYSICAL MEDICINE AND REHABILITATION H&P CHIEF [...] has no apparent deficits with short or terminal manager memory. He has appropriate fund of knowledge [...] in physical therapy, this was done at [facility]. 3. I will follow up with [...]
--- OUTSIDE RECORDS SUMMARY | ~2019-02-23 | XMS | Encounter Summary ---
Demographics + + + | Address | [address] | | | [place] [address] | + + + | Home Phone | | + + + | Preferred Language | Unknown | + + + | Marital Status | | + + + | Anglican Affiliation | Unknown | + + + | Race | Unknown | + + + | Ethnic Group | Unknown | + + + Author + + + | Author | [facility] | | | and [place] | + + + | Organization | [facility] | | | and [...] Team Providers + +------+ + | Care Ginner Helper Name | Role | Phone | [...] | Lumbar | [place], | [address] | | | | | radiculopath | Tahir Maldonado MD | [place], | | | | | y | [address] | [place] | | | | | Procedures | [place] | [address] | | | | | AR INJECT | [place], [place] | Phone: | | | | | ANES/STEROID | [address] | [phone] | | | | | FORAMEN | Phone: | Fax: | | | | | LUMBAR/SACRA | [phone] | [phone] | | | | | L [address] IMG | Fax: | | | | | | GUIDE ,1 | [phone] | | | | | | LEVEL AR | | | | | | | [...] + + | 04/04/ | Hospital | [facility] | Carey, | Lumbar radicular | | 2018 | Encounter | MED CTR XRAY [address] | [address] | pain; [address]DD | | | | [place] | [facility], | (degenerative disc | | | | [place] [address] | [place] [address] | disease), lumbar; | | | | [phone] | [phone] | Lumbar spondylosis | | | | | | | | | | | Project Officer, James | | +--------+ + + + [...] + + | Performing | Address | City/State[facility] | Phone Number | | Organization [...] | | (Comment | | Intradermal, ONCE, [facility] 04/04/18 | | PM PST | | | ) | | at 1715, For 1 dose | | | | | | + +-------+ +-------+---+ + +---+---+ | | | +---+---+ documented in this encounter"
--- OUTSIDE RECORDS SUMMARY | ~2019-02-23 | XMS | Encounter Summary ---
Demographics + + + | Address | [address] | | | [place] [address] | + + + | Home Phone [...] Team Providers + +------+ + | Care Cnc Manager Name | Role | Phone | + +------+ + | Kait Velazquez MD | PCP | | + +------+ + Encounter Details +--------+ + + + + | Date | Type | Department | Care Team | Description | +--------+ + + + + | 02/07/ | Telephone | [facility] | [place], | | | 2019 | | Associates [address] | Dhruv Mcmanus MD [address] | | | | [address] | [address] | | | | | [place], [place] | [address] [place], [place] | | | | | [address] | [address] | | | | | [phone] | | | +--------+ + + + [...] Kelly | | | | | | [place], [place] | | | | | | [address] | | | | | | | | +--------+---------+ + + + documented as of this encounter Visit Diagnoses Not on filedocumented in this encounter"
--- OUTSIDE RECORDS SUMMARY | ~2019-02-23 | XMS | Encounter Summary ---
Demographics + + + | Address | [address] | | | [place] [address] | + + + | Home Phone | | + + + | Preferred Language | Unknown | + + + | Marital Status | | + + + | Samaritan Affiliation | Unknown | + + + [...] Team Providers + +------+ + | Care Generator Switchboard Operator Name | Role | Phone | [...] [address] | | | | | [place], | [place], | | | | | [place] [address] | [place] [address] | | | | | [phone] | [phone] | | | | | | | [...]
--- OUTSIDE RECORDS SUMMARY | ~2019-02-23 | XMS | Encounter Summary ---
Demographics + + + | Address | [address] | | | [place] [address] | + + + | Home Phone [...] Team Providers + +------+ + | Care Breakfast Attendant Name | Role | Phone | [...] | | | | | lumbar | [place], | | | | | | region | [place] [address] | | | | | | Procedures | Phone: | | | | | | HIM 07/11/17 | [phone] | | | | | | | Fax: | | | | | | | [phone] | | +--------+ + + + + [...] | stenosis of | [address] | [address] Phone: | | | | | lumbar | [place], | [phone] | | | | | region | [place] [address] | Fax: | | | | | | Phone: | [phone] | | | | | | [phone] | | | | | | | Fax: | | | | | | | [phone] | | +--------+ + + + + [...] | Dx); Foraminal | | | | [place], [place] | [place], [place] | stenosis of lumbar | | | | [address] | [address] | region | | | | [phone] | | | +--------+---------+ + + + [...] encounter Patient Instructions Patient Instructions Eli Sy, Promotion Officer - 07/03/2017 3:15 PM PDTIt was a pleasure seeing you today. Here is what we discussed. I will put in a referral for you to see Dr. Handley. If you have not heard from us by Sunday or Sunday next week give us a call to check on your referral. I will also put in a referral for physical therapy to the [facility] in [place] Electronically s igned by Eli Sy Promotion Officer at 07/03/2017 3:56 PM PDT documented in this encounter Progress Notes Thomas Lawler PA-C - 07/03/2017 3:15 PM PDTFormatting of this note might be differ ent from the original. Eli Beauchamp Promotion Officer [address] [facility], [address] [place] [address] FAX: NEUROSURGERY FOLLOW-UP CHIEF COMPLAINT: Chief Complaint [...] Right COLONOSCOPY 2008 [place] CORONARY ANGIOPLASTY 10/27/2016 [place] FEMUR SURGERY Left KNEE ARTHROSCOPY Left 2004 NOSE SURGERY SHOULDER SURGERY Left 1978 We[facility]; '[facility]jamin [place]. 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 TOTAL KNEE ARTHROPLASTY Left 2015 Rojas; .[facility], [place]. VASECTOMY CURRENT MEDICATIONS: Current Outpatient Prescriptions [...] has no apparent deficits with short or half-way memory. CRANIAL NERVES: Fundoscopic Exam: The optic [...] Intrinsics 5 5 Ulnar Intrinsics 5 5 Inventory Worker Strength 5 5 Hip Flexion 5 5 [...] his progress ELECTRONICALLY SIGNED BY: Eli Beauchamp, Promotion Officer, 07/03/2017 15:32 I, Thomas Lawler PA-C, personally [...]
--- OUTSIDE RECORDS SUMMARY | ~2019-02-23 | XMS | Encounter Summary ---
Demographics + + + | Address | [address] | | | [place] [address] | + + + | Home Phone | | + + + | Preferred Language | Unknown | + + + | Marital Status | | + + + | Hoahaoism Affiliation | Unknown | + + + | Race | Unknown | + + + | Ethnic Group | Unknown | + + + Author + + + | Author | [facility] | | | and [place] | + + + | Organization | [facility] | | | [...] Providers + +------+ + | Care Medical Terminologist Name | Role | Phone | + +------+ + | Kait Velazquez MD | PCP | | + +------+ + Reason for Visit + + + | Reason | Comments | + + + | Medication | | | Administration Only | | + + + Encounter Details +--------+ + + + + | Date | Type | Department | Care Team | Description | +--------+ + + + + | 08/14/ | Telephone | [facility] [place] | Shemar Gillis, | Medication | | 2019 | | PHYSIATRY [address] | PA-C [address] | Administration Only | | | | [place], | [address] [place] | | | | | [place] [address] | [place] [address] | | | | | [phone] | [phone] | | | | | | | [...]
--- OUTSIDE RECORDS SUMMARY | ~2019-02-23 | XMS | Encounter Summary ---
Demographics + + + | Address | [address] | | | [place] [address] | + + + | Home Phone | | + + + | Preferred Language | Unknown | + + + | Marital Status | | + + + | Judaism Affiliation | Unknown | + + + [...] Team Providers + +------+ + | Care Paper Pattern Folder Name | Role | Phone | [...] | +--------+ + + + + | 09/20/ | Telephone | [facility] | Tahir Handley | Other | | 2019 | | PHYSIATRY [address] | T, [address] | | | | | [place], | [place], [place] | | | | | [place] [address] | [address] | | | | | [phone] | | | +--------+ + + + [...]
--- OUTSIDE RECORDS SUMMARY | ~2019-02-23 | XMS | Encounter Summary ---
Demographics + + + | Address | [address] | | | [place] [address] | + + + | Home Phone | | + + + | Preferred Language | Unknown | + + + | Marital Status | | + + + | Christian Affiliation | Unknown | + + + | Race | Unknown | + + + | Ethnic Group | Unknown | + + + Author + + + | Author | [facility] | | | and [place] | + + + | Organization | [facility] | | | [...] Team Providers + +------+ + | Care Electric Accounting Machine Operator Name | Role | Phone [...] + + | 04/25/ | Office | [facility] | Carey, | Lumbar facet | | 2019 | Visit | PHYSIATRY [address] | [address] | arthropathy (Primary | | | | [place], | [address], | Dx); Lumbar | | | | [place] [address] | [place] [address] | spondylosis; DDD | | | | [phone] | [phone] | (degenerative disc | | | | [...] not feel pain. You must have a peg driver to get home from the hospital. You will feel more bruising pain to the location of the needles for taurus maxwell 4-5 days after this procedure, but once that clears up, you should be pain free for 8 m onths to 2 years, depends on when the nerve grows back. [email or web address]/[email or web address] Follow-up at the hospital thirty minutes before [...] of the procedure you must provide a peg driver to take you home. For all procedur es it is recommended that someone else drive you home. documented in this encounter Progress Notes Елена Patino PA-C - 04/25/2018 11:20 AM PSTFormatting of this note might be differe nt from the original. Елена Patino PA-C [address] [facility], [address] [place] [address] FAX: PHYSICAL MEDICINE AND REHABILITATION H&P CHIEF [...] deficits with short or long term care administrator memory. He has appropriate fund of knowledge [...] in physical therapy, this was done at [facility]. 3. I have not made any changes [...]
--- OUTSIDE RECORDS SUMMARY | ~2019-02-23 | XMS | Encounter Summary ---
Demographics + + + | Address | [address] | | | [place] [address] | + + + | Home Phone | | + + + | Preferred Language | Unknown | + + + | Marital Status | | + + + | Spiritism Affiliation | Unknown | + + + [...] Team Providers + +------+ + | Care Maintenance Scheduler Name | Role | Phone | + [...] | Therapy | DDD | Day | [facility] | | | Required | | (degenerativ | [address] | PHYSICAL | | | | | e disc | [address] | THERAPY [address] | | | | | disease), | [address] | [place] | | | | | lumbar | STREET | [place], [place] | | | | | Lumbar | [address] | [address] | | | | | spondylosis | [place], | Phone: | | | | | Obesity, | [place] [address] | [phone] | | | | | unspecified | Phone: | Fax: | | | | | classificati | [phone] | [phone] | | | | | on, | Fax: | | | | | | unspecified | [phone] | | | | | | obesity [...] + + | 07/05/ | Office | [facility] | Day Crawford | DDD (degenerative | | 2019 | Visit | NEUROSURGERY [address] | [address] | disc disease), | | | | [facility] | [facility] [address] | lumbar (Primary Dx); | | | | [place], [place] | [address] [place], [place] | Lumbar spondylosis; | | | | [address] | [address] | Obesity, | | | | [phone] | | unspecified | | | | [...] encounter Patient Instructions Patient Instructions Darlyn Membreno Electronic System Engineer - 07/05/2018 10:00 AM PDT 1. I [...] from the original. Breanna Crawford PA-C [address] [facility], [address] [place] [address] PHONE: FAX: NEUROSURGERY FOLLOW-UP CHIEF COMPLAINT: Chief [...] has no apparent deficits with short or manager terminal memory. CRANIAL NERVES: II: Acuity is intact. [...]
--- OUTSIDE RECORDS SUMMARY | ~2019-02-23 | XMS | Encounter Summary ---
Demographics + + + | Address | [address] | | | [place] [address] | + + + | Home Phone [...] Team Providers + +------+ + | Care Chief Unit Forester Name | Role | Phone | + [...] | | | | y Lumbar | [place], | [address] | | | | | foraminal | [place] [address] | AVE | | | | | stenosis | Phone: | [place], [place] | | | | | Osteoarthrit | [phone] | [address] | | | | | is of lumbar | Fax: | Phone: | | | | | spine, | [phone] | [phone] | | | | | unspecified | | Fax: | | | | | spinal | | [phone] | | | | | osteoarthrit | [...] [address] | | | | | [place] OFFICE | [address] | [place] | | | | | CONSULTATION | Gladys | [address] | | | | | NEW/ESTAB | [address] | Phone: | | | | | PATIENT [address] | [place], | [phone] | | | | | MIN | [place] | Fax: | | | | | | [address] | [phone] | | | | | | Phone: | | | | | | | [phone] | | | | | | | Fax: | | | | | | | [phone] | | +--------+--------+ + + + + [...] | | [address] | [place] [address] | Lumbar foraminal | | | | [place], [place] | [phone] | stenosis; | | | | [address] | | Osteoarthritis of | | | | [phone] | Edvin Hope, | lumbar spine, | | | | | PA-C [address] | unspecified spinal | | | | | [address] [place] | osteoarthritis | | | | | [place] [address] | complication status; | | | | | [phone] | Facet arthropathy, | | | | [...] Edvin Hope PA-C and Sanjay Finnegan MD [address] [place] [address], [address] [place], [place] [address] FAX: [phone] NEUROSURGERY HISTORY AND PHYSICAL EXAMINATION CHIEF COMPLAINT: [...] Right COLONOSCOPY 2008 [place] CORONARY ANGIOPLASTY 10/27/2016 [place] FEMUR SURGERY Left KNEE ARTHROSCOPY Left 2005 [...] has no apparent deficits with short or life teacher memory. CRANIAL NERVES: II: Acuity is intact. [...] Intrinsics 5 5 Ulnar Intrinsics 5 5 Grass Farmer Strength 5 5 Hip Flexion 5 4* [...]
--- OUTSIDE RECORDS SUMMARY | ~2019-02-23 | XMS | Encounter Summary ---
Demographics + + + | Address | [address] | | | [place] [address] | + + + | Home Phone | | + + + | Preferred Language | Unknown | + + + | Marital Status | | + + + | Anglican Affiliation | Unknown | + + + | Race | Unknown | + + + | Ethnic Group | Unknown | + + + Author + + + | Author | [facility] | | | and [place] | + + + | Organization | [facility] | | [...] Team Providers + +------+ + | Care Utility Bill Collector Name | Role | Phone | [...] pain (Primary Dx); | | | | [place], | [address], | DDD (degenerative | | | | [place] [address] | [place] [address] | disc disease), | | | | [phone] | [phone] | lumbar; Lumbar | | | | [...] of blood sugars if you are diabetic. intermediate card tender risk can lead to osteoporosis which is [...] of the procedure you must provide a moving van driver to take you home. For all procedur es it is recommended that someone else drive you home. documented in this encounter Progress Notes Елена Patino PA-C - 03/26/2018 1:40 PM PSTFormatting of this note might be differe nt from the original. Елена Patino PA-C [address] [facility], [address] [place], [place] [address] FAX: PHYSICAL MEDICINE AND REHABILITATION H&P CHIEF [...] has no apparent deficits with short or snf memory. 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 Unfortunately she katie nues to have significant discomfort. It appears to me that the pain is primarily coming fro m the spinal stenosis. I did feel that she would be a good candidate for interventional pro cedures and I offered bilateral L5?s1 TFESI as this has helped in the past. 2. Patient has participated in physical therapy, this was done at [facility]. 3. I will follow up with [...] + + | Performing | Address | City/State[facility] | Phone Number | | [...]
--- OUTSIDE RECORDS SUMMARY | ~2019-02-23 | XMS | Encounter Summary ---
Demographics + + + | Address | [address] | | | [place] [address] | + + + | Home Phone | | + + + | Preferred Language | Unknown | + + + | Marital Status | | + + + | Confucianist Affiliation | NRP | + + + [...] Team Providers + +------+ + | Care Magazine Journalist Name | Role | Phone | + [...] Kelly | | | | | | [place] | | | | | | [address] | | | | | | | | +--------+---------+ + + + documented as of this encounter Visit Diagnoses Not on filedocumented in this encounter"
--- OUTSIDE RECORDS SUMMARY | ~2019-02-23 | XMS | Encounter Summary ---
Demographics + + + | Address | [address] | | | [place] [address] | + + + | Home Phone | | + + + | Preferred Language | Unknown | + + + | Marital Status | | + + + | Restorationism Affiliation | Unknown | + + + [...] Team Providers + +------+ + | Care Human Resources Operations Coordinator Name | Role | Phone | [...] + + | 08/08/ | Office | [facility] | Shemar Gillis, | Lumbar radiculopathy | | 2019 | Visit | PHYSIATRY [address] | PA-C [address] | (Primary Dx) | | | | [place], | [address] [place] | | | | | [place] [address] | [place] [address] | | | | | [phone] | [phone] | | | | | | | [...] be different fro m the original. 301 [facility], [facility] [address] [place], [place] [address] FAX: PHYSICAL MEDICINE AND REHABILITATION H&P CHIEF [...] has no apparent deficits with short or nursing home memory. 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 Unfortunately Antonio Mejia Azevedo Jr. continues to [...]
--- OUTSIDE RECORDS SUMMARY | ~2019-02-23 | XMS | Encounter Summary ---
Demographics + + + | Address | [address] | | | [place] [address] | + + + | Home Phone [...] + +------+ + | Care Manager Of Supply Chain Name | Role | Phone | + [...] | | | | [place]am[place] | [address] [facility] | | | | | | stenosis | [address] | | | | | | Lumbar | [address] | | | | | | degenerative | [place], | | | | | | disc | [place] [address] | | | | | | disease | Phone: | | | | | | Procedures | [phone] | | | | | | OCCUPATIONAL | Fax: | | | | | | THERAPY | [phone] | | | | | | REFERRAL [...] | | | foraminal | [address] [facility] | | | | | | stenosis | Ave Room | | | | | | Lumbar | [address] | | | | | | degenerative | [facility] | | | | | | disc | [place] [address] | | | | | | disease | Phone: | | | | | | Procedures | [phone] | | | | | | PHYSICAL | Fax: | | | | | | THERAPY | [phone] | | | | | | REFERRAL [...] [address] | | | | | [place] [address] | [address] | | | 02/10/ | | [phone] | [place] [address] | | | 2019 | | | [phone] | | +--------+ + + + + [...] See chart review tab [place] For Ad[place] [facility] [place] Course: 74-year-old male with past medical [...] Phone Center 02/28/2019 10:45 AM Cosme Kenny [facility] Neurosurgery at 7th [phone] [facility] Neurosur Code Status for Facility Status: Full Code Condition on Discharge Stable Discharge Follow Up - Facility MD to follow Facility MD to follow patient. Please CC to: Primary Care Provider Kait Velazquez MD [address] [place] [address] If you have any of the following: Difficulty breathing or unusual shortness of breath Excessive bleeding, drainage at the operative site Fevers, chills, increased pain that is not relieved by pain medications Persistent nausea or vomiting Discharging Attending: Chloe Osei DO I spent more than 35 minutes in the discharge planning of this patient with over 50% of my time [id number] with the patient in evaluating and counseling, [...] -No forward bending to the floor to pick pulling machine operator objects -Keep head above the level of [...] NOT RESTART THESE MEDICATIONS UNTIL CLEARED BY [facility] NEUROSURGERY. Activity: -Activity instructions: no strenuous exercise, no bending/twisting, lifting restricted to < 1/2 gallon of milk in weight. -No forward bending to the floor to pick pulling machine operator objects -Keep head above the level of [...] e Building. Office Address: Dr Sanjay Finnegan [facility] [address], [address] [place] [address] PPD per policy Facility MD to follow/manage patient "I certify that post-hospital inpatient jail facility care is medically necessar y on [...] - 02/10/2019 11:27 AM PDTPt discharged to [facility]. Pt left at 1125. Discharged summary sent [...] the hospital. Await c all back from [facility] for report. 12: 02 PM Brigid Cota [...] for d/c: Discharge to swing bed at [facility] ([phone]). RNC M received message regarding call from Javier at [facility]. RNCM left voice message request ing call back to discuss discharge planning. Discharge destination: [facility] ([phone]) Transportation (mode/via): [facility] / [facility] Patient Support/Family Contact (name & #): JASMIN AZEVEDO (spouse) : [phone] Potential Barriers to discharge : None Communication: [...] MD hydrocortisone 1 % cream topical BID Sajnay Finnegan MD insulin lispro (HUMALOG) injection 1-11 [...] 5 C8 (Wrist Ext) 5 5 C8 (Metal Mine Inspector) 5 5 T1 (Pinky Abd) 5 5 [...] Care Post-Op Abx: -Cipro 400 mg IV [id number] Consults: -Hospitalist service to assess medical issues. [...] Discharge to SNF today. Gladys Motta PA-C [facility] MED SURG [address] [place] [address] Chloe Del Angel DO - 02/09/2019 8:55 [...] note was written using the assistance of FormaFina dictation software. I spent more than 25 [...] by RNCM. Document signed and sent to [facility] records to be scanned into EMR. Original document given to Patient. 02/09/19 at 1615 Yvonne DELEON track dresser Marvin Rodríguez M D - 02/09/2019 7:31 [...] Units, 1-11 Units, subcutaneous, TID W/MEALS, Lion Davsi MD, 1 Units at 02/08/19 0100 lactobacillus [...] packet 17 g, 17 g, oral, DAILY, Marivn Coburn MD, 17 g at 1008 polyethylene [...] lumbar region Essential hypertension Coronary arteriosclerosis in [place] artery Chronic anticoagulation Chronic deep vein thrombosis (DVT) of femoral vein of left lower extremity (HCC) Dyslipidemia Hypothyroidism Morbid obesity (HCC) Obstructive sleep apnea syndrome Paroxysmal atrial fibrillation (HCC) Status post insertion of drug-eluting stent into left anterior descending (LAD) artery 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 [...] then voiding trial in their office at [facility] t time. No prophylactic abx indicated for [...] given his procedure and duratio n/distance to [facility].Pt will require medication prior to discharge. I saw and performed a physical examination of the patient and discussed the patient's manag ement with Dr Coburn's. I reviewed Dr Coburn note and agree with the documented findings and plan of care. Jamie Deng MD [facility] Department of Neurological Manager IntelManager Animation Chloe roger, DO - 1 4:24 PM [...] [facility] Chloe Osei DO [facility] Medicine This note was written using the assistance of FormaFina dictation software. 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 [...] for DVT DVT prophylaxis Jamie Deng MD [facility] Department of Neurological Manager IntelManager Animation Almas, Marvin Fofana MD - 02/07/2019 8:07 [...] lumbar region Essential hypertension Coronary arteriosclerosis in [place] artery Chronic anticoagulation Chronic deep vein thrombosis [...] Post-Op Abx: -Continue Cipro 400 mg IV [id number] Consults: -Hospitalist service to assess medical issues. [...] Coburn MD Neurosurgery, PGY-4 8:12 PM 02/07/2019 [facility] - 1 7:01 PM PDT [facility] Medicine Progress Note Hospital Day# 4 [...] note was written using the assistance of FormaFina dictation software. I spent more than 35 [...] for SNF rehab have been placed to [facility], [facility] in [facility] and [facility] Transitional Care unit. All 3 faciliti es has accepted patient. Patient and his would like to go to [facility]. RNCM contacted [facility] and [facility] to advise that patient has elected to go to [facility] in [place] which is where he lives. Transportation discussed. Patient and have elected to use [facility] stretcher transpo rt. They are aware that they may be financially respondsive and [facility] is tentatively scheduled for Sunday @ 9 am. RNCM left message for Mars @ [facility], about their ability to accept patie [...] patient and his . Patient lives in [facility]. They are agreeable to SNF rehab. Provided list of SNF facility in [place] and [facility] as requested from Medicare.gov. [facility] Transitional care unit in [place]. Transport discussed with . Will need to [...] Food [facility] Nutrition Services [address] [facility] [place] [address] [phone] signed by Yue Pagan RD at 02/06/2019 3:06 PM AMIEGimauro, Cosme Mahoney PA-C - 02/06/2019 1:49 PM PDTFormatting of this note might be different from latrice martin original. Neurosurgery - Follow Up Chief Complaint: Back Pain Referring Provider: Snajay Finnegan MD History of Present Illness: Mr. [...] 10 mg, 10 mg, rectal, DAILY PRN, Mavrin Coburn MD dexamethasone (DECADRON) injection 4 mg, [...] lumbar region Essential hypertension Coronary arteriosclerosis in [place] artery Chronic anticoagulation Chronic deep vein thrombosis [...] Post-Op Abx: -Continue Cipro 400 mg IV [id number] Consults: -Hospitalist service to assess medical issues. [...] ready. -Consult case management. COSME KENNY PA-C [facility] Neurosurgery [address] [place] [address] Associated attestation - Jamie Deng MD - 02/06/2019 9:08 PM PDTNeurosurgery Attend ing I saw and performed a physical examination of the patient and discussed the patient's manag ement with MAKSIM Kenny. I reviewed MAKSIM Kenny note and agree with the documented findings and yanci n of care. Jamie Deng MD [facility] Department of Neurological Manager IntelManager Animation Josee Wilson RN - 02/06/2019 2:00 AM [...] lumbar region Essential hypertension Coronary arteriosclerosis in [place] artery Chronic anticoagulation Chronic deep vein thrombosis [...] ready. -Consult case management. Gladys Motta PA-C [facility] [address] [place] [address] Apolonia Pickard RN - 02/04/2019 1:07 PM [...] on 02/03/19. Spoke with patient and Jasmin [phone] at bedside. The plan is to discharge [...] in place BRIONNA outputs since [place]: flank=50, thse=233 OBJECTIVE: Last 24 hour min/max Temp: 37.7 [...] report patient's yeast areas, additional order received. 9236 Fluconazole hung. P DTdocumented in this encounter Plan of Treatment +--------+---------+ + + + | Date | Type | Specialty | Care Team | Description | +--------+---------+ + + + | 02/28/ | Office | Neurological Surgery | Cosme Kenny, | | | 2018 | Visit | | [place] | | | | | | [place], [place] | | | | | | [...] Note | + -------+ | Service Account, Workers On Call In Interface - 02/06/2019 3:03 PM PDT [...] RADIOLOGY | [address] | [place] [address] | [phone] | | VOICE RECOGNITION | | | [...] [address] | [place] [address] | [phone] | | VOICE RECOGNITION | | | [...] CASS/JOYCELYNO | [address] | [place] [address] | | | LAB | | | [...] [address] | [place] [address] | | | LAB | | | [...] | | [facility] | | | DJIBOUTIAN | | | | | + +---------+ [...] TUALITY/[place] | [address] | [place] [address] | | | LAB | | | [...] CASS/REINA | [address] | [place] [address] | | | LAB | | | [...] T[place]/[place] | [address] | [place] [address] | | | LAB | | | [...] CASS/REINA | [address] | [place] [address] | | | LAB | | | [...] TUNI/REINA | [address] | [place] [address] | | | LAB | | | [...] | | [facility] | | | DJIBOUTIAN | | | | | + +---------+ [...] CASS/REINA | [address] | [place] [address] | | | LAB | | | [...] RADIOLOGY | [address] | [place] [address] | [phone] | | VOICE RECOGNITION | | | [...] RADIOLOGY | [address] | [place] [address] | [phone] | + + + + + CONFIRMATORY [...] BLOOD | [address] | [place] [address] | | | BANK | | | [...] | | | | | modification) on [facility] 02/06/19 at | | | | [...] | | | | | dose on [facility] 02/06/19 at 0600, | | | | [...] g, oral, NEEDED, | | | Starting [facility] 02/06/19 at 2220, | | | [...] mL, intravenous, NEEDED, | | | Starting [facility] 02/06/19 at 2220, | | | [...] | | | | First dose on [facility] 02/06/19 at | | AM PDT [...]
--- OUTSIDE RECORDS SUMMARY | ~2019-02-23 | XMS | Encounter Summary ---
Demographics + + + | Address | [address] | | | [place] [address] | + + + | Home Phone | | + + + | Preferred Language | Unknown | + + + | Marital Status | | + + + | Bahai Affiliation | NRP | + + + [...] Team Providers + +------+ + | Care Pants Maker Name | Role | Phone | [...] | | | | MRI SPINE | [place], | | | | | | LUMBAR [place] | [place] [address] | | | | | | CONTRAST | Phone: | | | | | | | [phone] | | + +--------+ + + + [...] | | | | [address] | [place] [address] | | | | | [place], [place] | [phone] | | | | | [address] | | | | | | [phone] | | | +--------+ + + + [...] Kelly | | | | | | [place], [place] | | | | | | [address] | | | | | | | [...]
--- OUTSIDE RECORDS SUMMARY | ~2019-02-23 | XMS | Encounter Summary ---
Demographics + + + | Address | [address] | | | [place] [address] | + + + | Home Phone [...] Team Providers + +------+ + | Care Svp Marketing Name | Role | Phone | + +------+ + | Paul Boss MD | PCP | | + +------+ + Reason for Visit + + + | Reason | Comments | + + + | Back Pain | Discuss symptoms | + + + Encounter Details +--------+---------+ + + + | Date | Type | Department | Care Team | Description | +--------+---------+ + + + | 11/13/ | Office | [facility] | Carey, | Lumbar radicular | | 2018 | Visit | PHYSIATRY [address] | [address] | pain (Primary Dx); | | | | [place], | [address], | Foraminal stenosis | | | | [place] [address] | [place] [address] | of lumbar region; | | | | [phone] | [phone] | DDD (degenerative | | | | | | disc disease), | | | | | | lumbar; Lumbar facet | | | | | | arthropathy (HCC); | | | | | | Lumbar spondylosis | +--------+---------+ + + + Social [...] + + + | Blood Pressure | 130/74 | 11/13/2017 9:42 AM | | | | | PDT | | + + + + + | Pulse | 64 | 11/13/2017 9:42 AM | | | | | PDT [...] Weight | 120.2 kg (265 lb) | 11/13/2017 9:42 AM | | | | | PDT | | + + + + + | Height | 175.3 cm (5' 9") | 11/13/2017 9:42 AM | | | | | PDT | | + + + + + | Body Mass Index | 39.13 | 11/13/2017 9:42 AM | | | | | PDT | | + + + + + documented in this encounter Patient Instructions Patient Instructions Елена Patino PA-C - 11/13/2017 9:40 AM PDT1) Prednisone dose pack 2) Steroid epidural injection targeting the DDD 3) Oxycodone in the meantime, we'll take the gene testing and then bridge you to a rosalinda t medication documented in this encounter Progress Notes Елена Patino PA-C - 11/13/2017 9:40 AM PDTFormatting of this note might be ari nt from the original. Елена Patino PA-C [address] [facility], [address] [place] [address] FAX: PHYSICAL MEDICINE AND REHABILITATION H&P CHIEF COMPLAINT: Chief Complaint Patient presents with Back Pain Discuss symptoms HISTORY OF PRESENT ILLNESS: The patient is a 72 y.o. male being seen today for follow up c omplaints of back pain that began a chronic issue for months now. [facility] and is trying to exhaust conservative therapies. [...] improving since icing his low mark k. He has also been a long time patient of Dr. Flores at [facility]. He reports l ast Tuesday 11/07 Dr. Flores abruptly stopped his oxycodone which he has been taking for ov er 10 years and switched him onto Tylenol. The patient started going through withdrawals and thus started taking oxycodone again. He is very upset that Dr. Flores did not offer him an y other choices or medications to bridge on to. He was having left leg symptoms, however [...] Current Outpatient Prescriptions Medication Sig Dispense Refill acetaminophen (TYLENOL 8 HOUR) 650 MG CR tablet Take 650 mg by mouth 2 times daily. aspirin 81 MG tablet Take 81 mg [...] of systems was negative. PHYSICAL EXAMINATION: Vitals: 11/13/17 0942 BP: 130/74 Pulse: 64 PainSc: 5 PainLoc: Back Body mass index [...] no apparent deficits with short or termite inspector memory. He has appropriate fund of knowledge [...] L4/L5. ASSESSMENT: 1. Lumbar radicular pain 2. Foraminal stenosis of lumbar region 3. DDD (degenerative disc disease), lumbar 4. Lumbar facet arthropathy (HCC) 5. Lumbar spondylosis PLAN: 1. Patient has participated in physical therapy, this was done at [facility], a total of 10 visits, his [...] Dr. Tamiko bermeo in the near future. 3. Medications have been reviewed at today's visit with no changes made at this time. I did renew him Oxycodone for the next month. I also had my MA perform a Genespot testing so we c an determine the best neuropathic pain medicine we can bridge him onto while stopping the Ox ycodone. I discussed with him any way we go about stopping the oxycodone, he will go throug h withdrawals for approximately 4 days, but regarding his pain, hopefully we can target the pain with injections and other neuropathic pain medications while he stops the oxycodone. Arlette martin is willing to stop the narcotics as long as his pain is under control. 4. I did give him a prednisone dose pack to take in the meantime, while we wait for steroi d epidural injection to be done. ELECTRONICALLY SIGNED BY: Елена Patino PA-C, 11/13/2017 CC: Nunu docum ented in this encounter Plan of [...] | radiculopathy ICD-10 Code M54.16 Antonio Azevedo presents to | | | the fluoroscopy [...] | | unspecified | + + | Foraminal stenosis [...]
--- OUTSIDE RECORDS SUMMARY | ~2019-02-23 | XMS | Encounter Summary ---
Demographics + + + | Address | [address] | | | [place] [address] | + + + | Home Phone | | + + + | Preferred Language | Unknown | + + + | Marital Status | | + + + | Restorationist Affiliation | Unknown | + + + | Race | Unknown | + + + | Ethnic Group | Unknown | + + + Author + + + | Author | [facility] | | | and [place] | + + + | Organization | [facility] | | | [...] Team Providers + +------+ + | Care Digital Media Planner Name | Role | Phone | + [...] | | [address] | [place] [address] | | | | | [place] | [phone] | | | | | [address] | | | | | | [phone] | | | +--------+ + + + [...]
--- OUTSIDE RECORDS SUMMARY | ~2019-02-23 | XMS | Encounter Summary ---
Demographics + + + | Address | [address] | | | [place] [address] | + + + | Home Phone | | + + + | Preferred Language | Unknown | + + + | Marital Status | | + + + | Gnosticism Affiliation | Unknown | + + + | Race | Unknown | + + + | Ethnic Group | Unknown | + + + Author + + + | Author | [facility] | | | and [place] | + + + | Organization | [facility] | | [...] Team Providers + +------+ + | Care Shake Table Operator Name | Role | Phone | [...] [place] [place] | | | | | [phone] | [place] [address] | | +--------+ + + + + [...]
--- OUTSIDE RECORDS SUMMARY | ~2019-02-23 | XMS | Encounter Summary ---
Demographics + + + | Address | [address] | | | [place] [address] | + + + | Home Phone [...] Team Providers + +------+ + | Care Security Tester Name | Role | Phone | + +------+ + PCP | Unavailable | + +------+ + Encounter Details +--------+ + + + + | Date | Type | Department | Care Team | Description | +--------+ + + + + | 11/15/ | Press Operator Helper | [facility] | Sanjay Finnegan MD | Back pain, | | 2019 | | Neurosurgery at 7th | [address] | unspecified back | | | | [address] | [address] | location, | | | | [address] | [place] [address] | unspecified back | | | | [place], [place] | [phone] | pain laterality, | | | | [address] | | unspecified | | | | [phone] | | chronicity (Primary | | | [...] Visit | | MAKSIM-Cachorro [address] | | | | | | [place], [place] | | | | | | [address] | | | | | | | | +--------+---------+ + + + documented as of this encounter Results X-RAY SPINE LUMBOSACRAL 4 [...] RADIOLOGY | [address] | [place] [address] | [phone] | | VOICE RECOGNITION | | | | + + + + + documented in this encounter Visit Diagnoses + + | Diagnosis | + + | Back pain, unspecified back location, unspecified back pain laterality, unspecified | | chronicity - Primary | + + documented in this encounter"
--- OUTSIDE RECORDS SUMMARY | ~2019-02-23 | XMS | Encounter Summary ---
Demographics + + + | Address | [address] | | | [place] [address] | + + + | Home Phone [...] Team Providers + +------+ + | Care Meter Installer And Remover Name | Role | Phone | + [...] [address] | | | | | [place], | [place], | | | | | [place] [address] | [place] [address] | | | | | [phone] | [phone] | | | | | | | [...]
--- OUTSIDE RECORDS SUMMARY | ~2019-02-23 | XMS | Encounter Summary ---
Demographics + + + | Address | [address] | | | [place] [address] | + + + | Home Phone [...] Team Providers + +------+ + | Care Cmm Inspector Name | Role | Phone | [...] | Administration Only | | | | [place], | [address] [place] | | | | | [place] [address] | [place] [address] | | | | | [phone] | [phone] | | | | | | | [...]
--- OUTSIDE RECORDS SUMMARY | ~2019-02-23 | XMS | Encounter Summary ---
Demographics + + + | Address | [address] | | | [place] [address] | + + + | Home Phone | | + + + | Preferred Language | Unknown | + + + | Marital Status | | + + + | Restorationist Affiliation | Unknown | + + + | Race | Unknown | + + + | Ethnic Group | Unknown | + + + Author + + + | Author | [facility] | | | and [place] | + + + | Organization | [facility] | | [...] Providers + +------+ + | Care Field Contractor Name | Role | Phone | + [...] [address] | | | | | [place], | [place], [place] | | | | | [place] [address] | [address] | | | | | [phone] | | | +--------+ + + + [...]
--- OUTSIDE RECORDS SUMMARY | ~2019-02-23 | XMS | Encounter Summary ---
Demographics + + + | Address | [address] | | | [place] [address] | + + + | Home Phone [...] Team Providers + +------+ + | Care Pipe Testing Technician Name | Role | Phone | [...] 2017 | Visit | AUDIOLOGY AND | [facility] [address] | hearing loss (SNHL) | | | | [facility] | [address] [place] | of both ears | | | | [address] | [place] [address] | (Primary Dx); | | | | [address] [place] | [phone] | Subjective tinnitus, | | | | [place] [address] | | right | | | | [phone] | | | +--------+---------+ + + + [...]
--- OUTSIDE RECORDS SUMMARY | ~2019-02-23 | XMS | Encounter Summary ---
Demographics + + + | Address | [address] | | | [place] [address] | + + + | Home Phone | | + + + | Preferred Language | Unknown | + + + | Marital Status | | + + + | Latter Day Affiliation | NRP | + + + [...] Team Providers + +------+ + | Care Aviculturist Name | Role | Phone | + [...] INTERBODY FUSION | | | | [address] [place], [place] | [address] | L4-5/TRANSFORAMINAL | | | | [address] | [place] [address] | INTERBODY FUSION | | | | | [phone] | L5-S1/POSTERIOR | | | | | [...] Phone Center 02/28/2019 10:45 AM Cosme Kenny [facility] Neurosurgery at 7th [phone] [facility] Neurosur Code Status for Facility Status: Full Code Condition on Discharge Stable Discharge Follow Up - Facility MD to follow Facility MD to follow patient. Please CC to: Primary Care Provider Kait Velazquez MD [address] [facility] [place] [address] If you have any of the following: Difficulty breathing or unusual shortness of breath Excessive bleeding, drainage at the operative site Fevers, chills, increased pain that is not relieved by pain medications Persistent nausea or vomiting Discharging Attending: Chloe Osei DO I spent more than 35 minutes in the discharge planning of this patient with over 50% of my time [id number] with the patient in evaluating and counseling, [...] -No forward bending to the floor to pickle pumper objects -Keep head above the level of [...] THESE MEDICATIONS UNTIL CLEARED BY [facility]. Activity: -Activity instructions: no strenuous exercise, no bending/twisting, lifting restricted to < 1/2 gallon of milk in weight. -No forward bending to the floor to pickle pumper objects -Keep head above the level of [...] appt. Check in on 1st Floor in [address] [place] [address]. Office Address: Dr Sanjay Finnegan [facility] [address], [address] [place] [address] PPD per policy Facility MD to follow/manage patient "I certify that post-hospital inpatient halfway facility care is medically necessar y on [...] - 02/10/2019 11:27 AM PDTPt discharged to [facility]. Pt left at 1125. Discharged summary [...] for d/c: Discharge to swing bed at [facility] ([phone]). RNC M received message regarding call from Maryann at [facility]. RNCM left voice message request ing call back to discuss discharge planning. Discharge destination: [facility] ([phone]) Transportation (mode/via): [employer] / Stretcher Patient Support/Family Contact (name & #): JASMIN AZEVEDO (spouse) : [phone] Potential Barriers to discharge : None Communication: [...] 10 mg 10 mg oral DAILY Marvin Cobunr MD 10 mg at 02/10 0819 melatonin [...] 5 C8 (Wrist Ext) 5 5 C8 (Prop And Scenery Maker) 5 5 T1 (Pinky Abd) 5 5 [...] Care Post-Op Abx: -Cipro 400 mg IV [id number] Consults: -Hospitalist service to assess medical issues. [...] SNF today. Gladys Motta PA-C [facility] [address] [place] [address] Chloe Del Angel DO - 02/09/2019 8:55 [...] Contact - Anticipated Discharge - Sunday to [facility] Chloe Osei DO [facility] This note was written using the assistance of LiveIntent dictation software. I spent more than 25 [...] by RNCM. [facility] into E[facility]. Original document given to Patient. 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 [...] then voiding trial in their office at [facility] t time. No prophylactic abx indicated for [...] given his procedure and duratio n/distance to [facility].Pt will require medication prior to discharge. I saw and performed a physical examination of the patient and discussed the patient's manag ement with Dr Coburn's. I reviewed Dr Coburn note and agree with the documented findings and plan of care. Jamie Deng MD [facility] Department of Neurological Rn ProductionNitro Worker Mer, Chloe Brown, DO - 1 4:24 [...] Contact - Anticipated Discharge - Sunday to [facility] Chloe Osei, DO [facility] This note was written using the assistance of Dragon dictation software. I spent more than 35 minutes in the care of this patient with over 50% of my time face-to-f chris with the patient in evaluating and counseling, evaluating labs/images and other clinical data, as well as in coordination of care.Electronically signed by Chloe Osei DO at 01/15 10:01 PM Mavrin Rodríguez MD - 02/08/2019 4:00 PM PDT [...] lumbar region Essential hypertension Coronary arteriosclerosis in [place] artery Chronic anticoagulation Chronic deep vein thrombosis (DVT) of femoral vein of left lower extremity (HCC) Dyslipidemia Hypothyroidism Morbid obesity (HCC) Obstructive sleep apnea syndrome Paroxysmal atrial fibrillation (HCC) Status post insertion of drug-eluting stent into left anterior descending (LAD) artery 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 [...] then voiding trial in their office at [facility] t time. No prophylactic abx indicated for [...] for DVT DVT prophylaxis Jamie Deng MD [facility] Department of Neurological Rn ProductionNitro WorkerMarvin Mckoy MD - 02/07/2019 8:07 PM PDTFormatting [...] lumbar region Essential hypertension Coronary arteriosclerosis in [place] artery Chronic anticoagulation Chronic deep vein thrombosis [...] Post-Op Abx: -Continue Cipro 400 mg IV [id number] Consults: -Hospitalist service to assess medical issues. [...] 1-2 days to SNF Chloe Osei DO [facility] This note was written using the assistance of LiveIntent dictation software. I spent more than 35 [...] for SNF rehab have been placed to [facility], [facility] in [facility] and [facility]. All 3 faciliti es has accepted patient. Patient and his would like to go to [facility]. RNCM contacted [facility], and [facility] to advise that patient has elected to go to [facility] in [place] which is where he lives. Transportation discussed. Patient and have elected to use [employer] stretcher transpo rt. They are aware that they may be financially respondsive and [facility]. [facility] is tentatively scheduled for Sunday @ 9 am. RNCM left message for Mars @ [facility], about their ability to accept [...] patient and his . Patient lives in [facility]. They are agreeable to SNF rehab. Provided list of SNF facility in [facility] as requested from Medicare.gov. Referrals sent to [facility], [facility] and [facility] in [place]. Transport discussed with . Will need to [...] [facility] Services [address] [place] [address] Cqmuesklgrqkex signed by Yue Pagan RD at 02/06/2019 [...] lumbar region Essential hypertension Coronary arteriosclerosis in [place] artery Chronic anticoagulation Chronic deep vein thrombosis [...] Post-Op Abx: -Continue Cipro 400 mg IV [id number] Consults: -Hospitalist service to assess medical issues. [...] ready. -Consult case management. COSME KENNY PA-C [facility] Neurosurgery [address] [place] [address] Associated attestation - Jamie Deng MD - 02/06/2019 9:08 PM PDTNeurosurgery Attend ing I saw and performed a physical examination of the patient and discussed the patient's manag ement with MAKSIM Kenny. I reviewed MAKSIM Kenny note and agree with the documented findings and yanci n of care. Jamie Deng MD [facility] Department of Neurological Rn ProductionNitro Worker Josee Wilson RN - 02/06/2019 2:00 AM [...] lumbar region Essential hypertension Coronary arteriosclerosis in [place] artery Chronic anticoagulation Chronic deep vein thrombosis [...] case management. Gladys Motta PA-C [facility] [address] [address] Apolonia Pickard RN - 02/04/2019 1:07 PM [...] Provider: CPAP Home Health/Infusion Agency: N/A Insurance/Funding: @[email or web address]@, Assessment: Antonio Azevedo is a 74 y.o. male HD#1 with lumbar DDD, L4-S1 foraminal stenosi s, degenerative scoliosis s/p L4-5 XLIF/L5-S1 TLIF/L4-S1 PIF on 02/03/19. Spoke with patient and Jasmin [phone] at bedside. The plan is to discharge [...] in place BRIONNA outputs since [place]: flank=50, gqci=139 OBJECTIVE: Last 24 hour min/max Temp: 37.7 [...] sample for T&Sc confirmatory. Lab called . 0045 Lab here to draw spec. Call placed into the [place] to report patient's yeast areas, additional order received. 2004 Fluconazole hung. P DTdocumented in this encounter Plan of Treatment +--------+---------+ + + + | Date | Type | Specialty | Care Team | Description | +--------+---------+ + + + | 02/28/ | Office | Neurological Surgery | Cosme Kenny, | | | 2018 | Visit | | PA-Cachorro [address] | | | | | | [place], [place] | | | | | | [address] | | | | | | | [...] Note | + -------+ | Service Account, [employer] In Interface - 02/06/2019 3:03 PM PDT [...] RADIOLOGY | [address] | [place] [address] | [phone] | | VOICE RECOGNITION | | | [...] Note | + --------+ | Service Account, [employer] In Interface - 02/06/2019 2:55 PM [...] RADIOLOGY | [address] | [place] [address] | [phone] | | VOICE RECOGNITION | | | [...] [address] | [place] [address] | | | LAB | | | [...] TUALITY/[facility] | [address] | [place] [address] | | | LAB | | | [...] | | [facility] | | | [place] | | | | | + +---------+ [...] CASS/GONZALES | [address] | [place] [address] | | | LAB | | | [...] [address] | [place] [address] | | | LAB | | | [...] CASS/GONZALES | [address] | [place] [address] | | | LAB | | | [...] [address] | [place] [address] | | | LAB | | | [...] [address] | [place] [address] | | | LAB | | | [...] | | [facility] | | | [facility] | | | | | + +---------+ [...] TUALITY/GONZALES | [address] | [place] [address] | | | LAB | | | [...] RADIOLOGY | [address] | [place] [address] | [phone] | | VOICE RECOGNITION | | | [...] RADIOLOGY | [address] | [place] [address] | [phone] | + + + + + CONFIRMATORY [...] BLOOD | [address] | [place] [address] | | | BANK | | | [...] | | | | | modification) on [facility] 02/06/19 at | | | | [...] | | | | First dose on [facility] 02/06/19 at | | AM PDT [...]
--- OUTSIDE RECORDS SUMMARY | ~2019-02-23 | XMS | Clinical Summary ---
Demographics + + + | Address | [address] | | | [place] [address] | + + + | Home Phone | | + + + | Preferred Language | Unknown | + + + | Marital Status | | + + + | Uatsdin Affiliation | NRP | + + + [...] Team Providers + +------+ + | Care Value Analyst Name | Role | Phone | + +------+ + | Kait Velazquez MD | PCP | | + +------+ + Source Comments LINDSAY is fully live on both [facility] Ambulatory and [facility] InPatient.[facility] Allergies + + + + + + [...] + + + | Coronary arteriosclerosis in [place] artery | 10/28/2016 | + + + [...] in | | | | | | [place] artery; | | | | | | [...] Kelly | | | | | | [place], [place] | | | | | | [address] | | | | | | | [...] | 10/13/ | 2017-07 | | - [id number]: Qty: | | Spine | TISSUE BANK | | 2020 | 0 | | 1 on 02/03/2019 by Sanjay Finnegan | | | | | | /[id number] | | MD Tamar at [facility] Rev Location | | | | | | 1-358 | | | | | | | | /00-33 | | | | | | | | 50 | + +------+-------+ +--------+--------+--------+ | Bone Infuse Kit X Small | | N/A: | | | | | | [id number] - [id number]: | | Spine | | | | | | Qty: 1 on 02/03/2019 by Sivan, | | | | | | | | Sanjay Boyle MD at [facility] IP Rev | | | | | | | | Location | | | | | | | + +------+-------+ +--------+--------+--------+ | Bone Infuse Kit Xx Small | | N/A: | NUVASIVE | | 01/13/ | [id number] | | [id number] - [id number]: | | Spine | | | 2020 | 0 / | | Qty: 1 on 02/03/2019 by Sivan, | | | | | | /[id number] | | Sanjay Boyle MD at [facility] IP Rev | | | | | | [id number] | | Location | | | | | | | + +------+-------+ +--------+--------+--------+ | Oblique Tlif, Implanted: Qty: | | N/A: | | | | [id number] | | 1 on 02/03/2019 by Sivan, | | Spine | | | | 4 / / | | Sanjay Boyle MD at [facility] IP Rev | | | | | | | | Location | | | | | | | + +------+-------+ +--------+--------+--------+ | Implant Coroent Xl Wide 15 8 | | N/A: | | | | [id number] | | X 22 X 55mm [id number] - | | Spine | | | | 5 / / | | [id number]: Qty: 1 on | | | | | | | | 02/03/2019 by Sanjay Finnegan, | | | | | | | | MD at [facility] IP Rev Location | | | | | | | + +------+-------+ +--------+--------+--------+ | Screw Precept Polyaxial 7.5 X | | N/A: | | | | [id number] | | 50mm [id number] - | | Spine | | | | 0A / / | | [id number]: Qty: 4 on | | | | | | | | 02/03/2019 by Sanjay Finnegan, | | | | | | | | MD at [facility] IP Rev Location | | | | | | | + +------+-------+ +--------+--------+--------+ | Screw Precept Polyaxial 8.5 X | | N/A: | | | | [id number] | | 50mm [id number] - | | Spine | | | | 0A / / | | [id number]: Qty: 2 on | | | | | | | | 02/03/2019 by Sanjay Finnegan, | | | | | | | | MD at [facility] IP Rev Location | | | | | | | + +------+-------+ +--------+--------+--------+ | Set Screw Precept [id number] | | N/A: | | | | [id number] | | [id number]: Qty: 6 on | | Spine | | | | 0 / / | | 02/03/2019 by Sanjay Finnegan, | | | | | | | | at [facility] 7billionideas Rev Location | | | | | | | + +------+-------+ +--------+--------+--------+ | Precept Ti RodImplanted: Qty: | | N/A: | | | | [id number] | | 2 on 02/03/2019 by Sivan, | | Tramaine | | | | 5 / / | | Sanjay Boyle MD at [facility] Rev | | | | | [...] Note | + -------+ | Service Account, Storybirdant Res In Interface - 02/06/2019 3:03 PM [...] RADIOLOGY | [address] | [place] [address] | [phone] | | VOICE RECOGNITION | | | [...] + | [facility] | [address] | [place] [address] | [phone] | | VOICE RECOGNITION | | | [...] [facility] | [address] | [place] [address] | | | LAB | | | [...] | | [facility] | | | [facility] | | | | | + +---------+ [...] [facility] | [address] | [place] [address] | | | LAB | | | [...] [facility] | [address] | [place] [address] | | | LAB | | | [...] [facility] | [address] | [place] [address] | | | LAB | | | [...] [facility] | [address] | [place] [address] | | | LAB | | | [...] [facility] | [address] | [place] [address] | | | LAB | | | [...] [facility] | [address] | [place] [address] | | | LAB | | | [...] | | [facility] | | | [facility] | | | | | + +---------+ [...] [facility] | [address] | [place] [address] | | | LAB | | | [...] RADIOLOGY | [address] | [place] [address] | [phone] | | VOICE RECOGNITION | | | [...] RADIOLOGY | [address] | [place] [address] | [phone] | + + + + + ETT [...] BLOOD | [address] | [place] [address] | | | BANK | | | [...] [facility] | [address] | [place] [address] | | | LAB | | | [...] BLOOD | [address] | [place] [address] | | | BANK | | | [...] BLOOD | [address] | [place] [address] | | | BANK | | | [...] on | RO LAB | | the [place] [employer]'s Standards of Medical Care in | | | Diabetes - 2012. | | + + + + + + + + | Performing | Address | City/State/Zipcode | Phone Number | | Organization | | | | + + + + + | [facility] | [address] | [place] [address] | | | LAB | | | [...] MEDICARE | MEDICA | xxxxxxxxxxx | | [phone] | [address] | Medica | | | RE A & | | 011-Pr | 1 | [address] | re | | | B | | esent | | [place] | | | | | | | | [address] | | + +--------+ +--------+ + +--------+ [...] | | | | | | | [address] | | + +--------+ +--------+ + +--------+ | [employer] [place] | MUTUAL | [id number] | Effect | [phone] | [employer] OF | Indemn | | MEDICARE SUPPL | OF | | meghann | 0 | [place] | ity | | | [place] | | for | | PLAZA | | | | MEDICA | | all | | [place] | | | | RE | | dates | | [phone] | | | | SUPPL | | [...] Person | Self [birth year] | [address] | | | al/Fam | | 1945 | [phone] | [place] [address] | | | fernanda | | | 0 (Home) | | + +--------+ +--------+ + + | Antonio Azevedo | Person | Self | [birth year] | [address] | | | al/Fam | | 1945 | [phone] | [place] [address] | | | fernanda | | | [...]
--- OUTSIDE RECORDS SUMMARY | ~2019-02-23 | XMS | Encounter Summary ---
Demographics + + + | Address | [address] | | | [place] [address] | + + + | Home Phone | | + + + | Preferred Language | Unknown | + + + | Marital Status | | + + + | Jainism Affiliation | NRP | + + + [...] Team Providers + +------+ + | Care Discovery Guide Name | Role | Phone | + [...] | | | | [address] | [place] [address] | | | | | [place], [place] | [phone] | | | | | [address] | | | | | | [phone] | | | +--------+ + + + [...] Kelly | | | | | | [facility] | | | | | | [address] | | | | | | | | +--------+---------+ + + + documented as of this encounter Visit Diagnoses Not on filedocumented in this encounter"
--- OUTSIDE RECORDS SUMMARY | ~2019-02-23 | XMS | Encounter Summary ---
Demographics + + + | Address | [address] | | | [place] [address] | + + + | Home Phone | | + + + | Preferred Language | Unknown | + + + | Marital Status | | + + + | Moravian Affiliation | Unknown | + + + | Race | Unknown | + + + | Ethnic Group | Unknown | + + + Author + + + | Author | [facility] | | | and [place] | + + + | Organization | [facility] | | [...] Team Providers + +------+ + | Care Violin Repairer Name | Role | Phone | + [...] + + | 09/17/ | Telephone | [facility] | Tahir Handley | Appointment Question | | 2018 | | PHYSIATRY [address] | [address] | | | | | [place], | [place], [place] | | | | | [place] [address] | [address] | | | | | [phone] | | | +--------+ + + + [...] Versed and 200 mcg fentanyl supervised by mn and | | | administered by the radiology nurse during the procedure according to | | | [facility] conscious sedation protocol. At the conclusion of [...] + | Performing | Address | City/State[facility] | Phone Number | | Organization | | | | + +---------+ + + | [facility] | | | | + +---------+ + + documented in this encounter Visit Diagnoses + + | Diagnosis | + + | Spondylosis without myelopathy or radiculopathy, lumbar region - Primary | + + documented in this encounter"
--- OUTSIDE RECORDS SUMMARY | ~2019-02-23 | XMS | Encounter Summary ---
Demographics + + + | Address | [address] | | | [place] [address] | + + + | Home Phone | | + + + | Preferred Language | Unknown | + + + | Marital Status | | + + + | Methodist Affiliation | Unknown | + + + | Race | Unknown | + + + | Ethnic Group | Unknown | + + + Author + + + | Author | [facility] | | | and [place] | + + + | Organization | [facility] | | [...] Team Providers + +------+ + | Care Analysis Engineer Name | Role | Phone | [...] | | [address] | [place] [address] | | | | | [place] | [phone] | | | | | [address] | | | | | | [phone] | | | +--------+ + + + [...]
--- OUTSIDE RECORDS SUMMARY | ~2019-02-23 | XMS | Encounter Summary ---
Demographics + + + | Address | [address] | | | [place] [address] | + + + | Home Phone [...] Team Providers + +------+ + | Care Felling Bucking Supervisor Name | Role | Phone | + +------+ + | Paul Boss MD | PCP | | + +------+ + Encounter Details +--------+ + + + + | Date | Type | Department | Care Team | Description | +--------+ + + + + | 10/11/ | Hospital | [facility] | Tahir Handley | Spondylosis without | | 2018 | Encounter | MED CTR XRAY [address] | [address] | myelopathy or | | | | [place] | [address] [place] | radiculopathy, | | | | [place] [address] | [address] | lumbar region | | | | [phone] | | | | | | | Nurse, [facility] | | | | | | [facility], [facility] | | +--------+ + + + [...] the procedure according to | | | [facility] conscious sedation protocol. At the conclusion [...] + + | Performing | Address | City/State/[facility] | Phone Number | | Organization | [...]
--- OUTSIDE RECORDS SUMMARY | ~2019-02-23 | XMS | Encounter Summary ---
Demographics + + + | Address | [address] | | | [place] [address] | + + + | Home Phone | | + + + | Preferred Language | Unknown | + + + | Marital Status | | + + + | Mandaen Affiliation | Unknown | + + + | Race | Unknown | + + + | Ethnic Group | Unknown | + + + Author + + + | Author | [facility] | | | and [place] | + + + | Organization | [facility] | | | and [...] Team Providers + +------+ + | Care Crate Liner Name | Role | Phone | + [...] + + | 11/13/ | Office | [facility] | Carey, | Lumbar radicular | | 2018 | Visit | PHYSIATRY [address] | [address] | pain (Primary Dx); | | | | [place], | [address], | Foraminal stenosis | | | | [place] [address] | [place] [address] | of lumbar region; | | | | [phone] | [phone] | DDD (degenerative | | | | [...] from the original. Елена Patino PA-C [address] [facility], [address] [place] [address] FAX: PHYSICAL MEDICINE AND REHABILITATION H&P CHIEF COMPLAINT: Chief Complaint Patient presents with Back Pain Discuss symptoms HISTORY OF PRESENT ILLNESS: The patient is a 72 y.o. male being seen today for follow up c omplaints of back pain that began a chronic issue for months now. [facility] and is trying to exhaust conservative therapies. [...] long time patient of Dr. Flores at [facility]. He reports l ast [...] has no apparent deficits with short or intermediate frame tender memory. He has appropriate fund of knowledge [...] in physical therapy, this was done at [facility], a total of 10 visits, his [...]
--- OUTSIDE RECORDS SUMMARY | ~2019-02-23 | XMS | Encounter Summary ---
Demographics + + + | Address | [address] | | | [place] [address] | + + + | Home Phone | | + + + | Preferred Language | Unknown | + + + | Marital Status | | + + + | Hinduism Affiliation | Unknown | + + + | Race | Unknown | + + + | Ethnic Group | Unknown | + + + Author + + + | Author | [facility] | | | and [place] | + + + | Organization | [facility] | | [...] Team Providers + +------+ + | Care Coremaker Floor Name | Role | Phone | + +------+ + | Paul Boss MD | PCP | | + +------+ + Reason for Visit + + + | Reason | Comments | + + + | New Patient | back pain | + + + Evaluate & Treat (Routine) +--------+ + + + + + | Status | Reason | Specialty | Diagnoses / | Referred By | Referred To | | | | | Procedures | Contact | Contact | +--------+ + + + + + | Closed | Specialty | Physical | Diagnoses | [place], | [place], | | | Services | [...] | stenosis of | [address] | [address] Phone: | | | | | lumbar | [place], | [phone] | | | | | region | [place] [address] | Fax: | | | | | | Phone: | [phone] | | | | | | [phone] | | | | | | | Fax: | | | | | | | [phone] | | +--------+ + + + + + Encounter Details +--------+---------+ + + + | Date | Type | Department | Care Team | Description | +--------+---------+ + + + | 07/30/ | Office | [facility] [place] | Sushilcz, | Lumbar facet | | 2017 | Visit | [address]SIATRY [address] | [address] | arthropathy (HCC) | | | | [place], | [address] [place], | (Primary Dx); [place]DD | | | | [place] [address] | [place] [address] | (degenerative disc | | | | [phone] | [phone] | disease), lumbar; | | | | | | Lumbar [...] + + + | Blood Pressure | 118/67 | 07/30/2017 9:14 AM | | | | | PDT | | + + + + + | Pulse | 57 | 07/30/2017 9:14 AM | | | | | PDT [...] | 123 kg (271 lb 2.7 | 07/30/2017 9:14 AM | | | | oz) | PDT | | + + + + + | Height | 175.3 cm (5' 9") | 07/30/2017 9:14 AM | | | | | PDT | | + + + + + | Body Mass Index | 40.04 | 07/30/2017 9:14 AM | | | | | PDT | | + + + + + documented in this encounter Patient Instructions Patient Instructions Елена Patino PA-C - 07/30/2017 9:20 AM PDT1) Lidocaine block in preperation for RFA Facet Pain: The facet joint is located when the [...] focusing on core strengthening, facet steroid injections. Radiofrequency Ablation (RFA) Burning of the nerves: [...] not feel pain. You must have a pick up driver to get home from the hospital. You will feel more bruising pain to the location of the needles for taurus maxwell 4-5 days after this procedure, but once that clears up, you should be pain free for 8 m onths to 2 years, depends on when the nerve grows back. documented in this encounter Progress Notes Елена Patino PA-C - 07/30/2017 9:20 AM PDTFormatting of this note might be differe nt from the original. Елена Patino PA-C [address] [facility], [address] [place], [place] [address] FAX: PHYSICAL MEDICINE AND REHABILITATION H&P CHIEF COMPLAINT: Chief Complaint Patient presents with New Patient back pain HISTORY OF PRESENT ILLNESS: The patient is a 72 y.o. male being seen today for complaints of back pain that began a chronic issue for months now. Back in October of 2016, patient had a stent put in, after this procedure he starting having more low back pain, mostly because he was put on Warfarin and can no longer take NSAIDS. Since the symptoms began, he has noticed that symptoms have been stable. He describes the p ain as a aching, numbing, sharp and shooting feeling. He rates the pain as severe. His sympt oms worsen with standing, sitting, walking, running, kneeling, bending, twisting. His sympt oms improve with rest, changing position, he has a lot of pain/stiffness in the AM. He was having left leg symptoms, however this improved with physical therapy. The patient does not describe numbness of the legs. He does not report weakness of the legs. He does not have bowel and bladder dysfunction. He does not have saddle anesthesia. Treatments for these complaints have included physical therapy, use of narcotics, muscle re laxers. Patient's medications, allergies, past medical, surgical, social and family histories were reviewed and updated as appropriate. PAST MEDICAL HISTORY: Past Medical History: Diagnosis [...] Right COLONOSCOPY 2008 [place] CORONARY ANGIOPLASTY 10/27/2016 [place] FEMUR SURGERY Left KNEE ARTHROSCOPY Left 2005 NOSE SURGERY SHOULDER SURGERY Left 1979 Weeks; [facility] [place] SHOULDER SURGERY Right 2006 SKIN CANCER EXCISION 2012 Forehead squamous cell SKIN GRAFT Right Ankle TONSILLECTOMY AND ADENOIDECTOMY TOTAL KNEE ARTHROPLASTY Right 2013 Rojas; [facility] [place] TOTAL KNEE ARTHROPLASTY Left 2015 [facility]; [...] no voice changes, no difficulty swallowing, no sig nificant snoring, no sleep apnea, no sinus problems, no major dental work. NEUROLOGICALLY:The patient has no numbness/pain of arms, no numbness/pain of legs, no awake with numbness/pain, no weakness, no muscle aching, no coordination difficulty, no change in walk, no head injury, no neck injury, no back injury, no pain in neck, no pain in back, no stroke, no fainting spells, no loss of consciousness, no tremor/shaking, no seizures, no hea daches, no migraine, no memory loss, no speech difficulty, no confusion and no numbness of f chris. PSYCHIATRIC: No depression, no sleep disorders, no [...] no personal h istory of cancer. RHEUMATOLOGIC: No joint arthritis, no rheumatoid arthritis. PHYSICAL EXAMINATION: Vitals: 07/30/17 0914 BP: 118/67 Pulse: 57 PainSc: 4 PainLoc: Back Body mass index is 40.04 kg/m. GENERAL: The patient is well developed [...] has no apparent deficits with short or penitentiary memory. He has appropriate fund of knowledge [...] the majority of the pain to the L4/L5, L5/ S1 region. Lumbar facet loading was positive, left greater than right. Strength testing sh owed 5/5 strength throughout the lower extremities. The patient was able to heel and toe wa lk without difficulty. There was no redness, effusion, warmth or joint line tenderness in t he knees or ankles. RADIOGRAPHIC REVIEW: The patient's imaging was reviewed in detail with the patient today during the visit. Lumb ar MRI from 2017 shows lumbar DDD with disc space narrowing at L4/L5, L5/S1, moderate to sev ere facet arthritis/hypertrophy with foraminal stenosis on the left at L4/L5. ASSESSMENT: 1. Lumbar facet arthropathy (HCC) 2. DDD (degenerative disc disease), lumbar 3. Lumbar spondylosis PLAN: 1. Patient has participated in physical therapy, this was done at [facility], a total of 10 visits, his leg radicular symptoms improved with PT, but not the chronic low mark k pain. 2. He did have a bilateral L4/L5 facet steroid injection done with Dr. Handley 8, he reports 50% relief and was told by Dr. Handley that his facet was so arthritis it w as hard to "get in". Because of this and he is on chronic blood thinners (warfarin). I'd l dylan to start the patient off with lidocaine blocks of the L4/L5, L5/S1 facet joints. If posi tive we can performed RFA therapy of the low back. I have ordered bilateral L3, L4 MBB and bilateral L5 dorsal root rami lidocaine blocks to be done soon. 3. Medications have been reviewed at today's visit with no changes made at this time. 4. Patient was instructed to stay in [place] for the four hours after the lidocaine bl ock, to submit the pain log [facility] We will call him with next step. ELECTRONICALLY SIGNED BY: Елена Patino PA-C, 07/30/2017 CC: Paul Boss documented in t his encounter Plan of Treatment Not on filedocumented [...] | | | spondylosis ICD-10 M47.817 Antonio Skyler Azevedo Jr. presents to the [...]
--- OUTSIDE RECORDS SUMMARY | ~2019-02-23 | XMS | Encounter Summary ---
Demographics + + + | Address | [address] | | | [place] [address] | + + + | Home Phone | | + + + | Preferred Language | Unknown | + + + | Marital Status | | + + + | Zoroastrianism Affiliation | Unknown | + + + | Race | Unknown | + + + | Ethnic Group | Unknown | + + + Author + + + | Author | [facility] | | | and [place] | + + + | Organization | [facility] | | [...] Team Providers + +------+ + | Care Lining Caser Name | Role | Phone | + +------+ + | Kait Velazquez MD | PCP | | + +------+ + Encounter Details +--------+ + + + + | Date | Type | Department | Care Team | Description | +--------+ + + + + | 11/07/ | Orders Only | [facility] | Provider, | | | 2019 | | SYSTEM GENERIC OP | MD Dave Weber | | | | | [address] | [place] | | | | | [address] [place], [place] | [place] [address] | | | | | [address] | | | | | | [phone] | | | +--------+ + + + [...]
--- OUTSIDE RECORDS SUMMARY | ~2019-02-23 | XMS | Clinical Summary ---
Demographics + + + | Address | [address] | | | [place] [address] | + + + | Home Phone | | + + + | Preferred Language | Unknown | + + + | Marital Status | | + + + | Mosque Affiliation | Unknown | + + + | Race | Unknown | + + + | Ethnic Group | Unknown | + + + Author + + + | Author | [facility] | | | and [place] | + + + | Organization | [facility] | | | [...] Team Providers + +------+ + | Care Trash Collector Truck Driver Name | Role | Phone [...] + + | Coronary artery disease involving [place] heart without angina | 01/02/2018 | | [...] involving | | | | | | [place] coronary | | | | | | artery of [place] | | | | | | heart [...] | | | | | | ([facility]); Essential | | | | | | hypertension; | | | | | | Dyslipidemia; Statin | | | | | | intolerance; | | | | | | Recurrent deep vein | | | | | | thrombosis (DVT) | | | | | | ([facility]); Chronic | | | | [...] | | | | | | ([facility]); Pre-operative | | | | [...] involving | | | | | | [place] coronary | | | | | | artery of [place] | | | | | | heart [...] the | | | | PDT | [place] coronary | results section. | | | | | artery of [place] | | | | | | heart [...] | | | | | by [facility] Read Only, | | | | | | [facility] aEmon (502), | | | | | | associate editor KARLOS SLAUGHTER | | | | [...] +--------+ +---------+--------+ | MEDICARE | MEDICA | [id number] | | [phone] | | Medica | | | RE | | 011-Pr | 5 | | re | | | PART A | | esent | | | | | | AND B | | | | | | + +--------+ +--------+ +---------+--------+ | MEDICARE | MEDICA | [id number] | | [phone] | | Medica | | | RE | | 011-Pr | 5 | | re | | | PART A | | esent | | | | | | AND B | | | | | | + +--------+ +--------+ +---------+--------+ | [employer] [facility] | [place] | [id number] | | [phone] | | Indemn | | | OF | | 018-Pr | 0 | | ity | | | [facility] | | esent | | | | | | MDCR | | | | | | | | SUPPL | | | | | | + +--------+ +--------+ +---------+--------+ | [employer] [facility] | [place] | [phone] | | [phone] | | Indemn | | | OF | | 018-Pr | 0 | | ity | | | [facility] | | esent | | | | [...] Person | Self | [birth year] | [address] | | . | al/Fam | | 1945 | [phone] | [place] | | | fernanda | | | 0 (Home) | [address] | | | | | | [phone] | | | | | | | 5 (Work) | | + +--------+ +--------+ + + | Antonio Azevedo | Person | Self | [birth year] | | [address] | | Jr. | al/Fam | | 1945 | [phone] | [place] | | | fernanda | | | 0 (Home) | [address] | | | | | | [phone] | | | | | | | 5 (Work) | | + +--------+ +--------+ + + Advance Directives + + + + + | Type | Date Recorded | Patient | Explanation | | | | Surgical Scheduler | | + + + + + | Power of | | | | | Presentation Manager | | | | + + + + + | Advance | 10/11/2017 12:11 | | | | Directive | PM | | | + + + + +
--- OUTSIDE RECORDS SUMMARY | ~2019-02-23 | XMS | Encounter Summary ---
Demographics + + + | Address | [address] | | | [place] [address] | + + + | Home Phone [...] Team Providers + +------+ + | Care Abrasive Worker Name | Role | Phone | [...] POP[place] | request) | | | | [place], | [address] [place] | | | | | [place] [address] | [place] [address] | | | | | [phone] | [phone] | | | | | | | [...]
--- OUTSIDE RECORDS SUMMARY | ~2019-02-23 | XMS | Encounter Summary ---
Demographics + + + | Address | [address] | | | [place] [address] | + + + | Home Phone | | + + + | Preferred Language | Unknown | + + + | Marital Status | | + + + | Zoroastrian Affiliation | Unknown | + + + | Race | Unknown | + + + | Ethnic Group | Unknown | + + + Author + + + | Author | [facility] | | | and [place] | + + + | Organization | [facility] | | [...] Team Providers + +------+ + | Care Veneer Jointer Helper Name | Role | Phone | [...] [address] | | | | | [place], | [address] [place], | | | | | [place] [address] | [place] [address] | | | | | [phone] | [phone] | | | | | | | [...]
--- OUTSIDE RECORDS SUMMARY | ~2019-02-23 | XMS | Encounter Summary ---
Demographics + + + | Address | [address] | | | [place] [address] | + + + | Home Phone [...] Team Providers + +------+ + | Care Night Assistant Name | Role | Phone | [...] [address] | | | | | [place], | [address] [place], [place] | | | | | [place] [address] | [address] | | | | | [phone] | | | +--------+ + + + [...]
--- OUTSIDE RECORDS SUMMARY | ~2019-02-23 | XMS | Encounter Summary ---
Demographics + + + | Address | [address] | | | [place] [address] | + + + | Home Phone [...] Team Providers + +------+ + | Care Managing Attorney Name | Role | Phone | + +------+ + PCP | Unavailable | + +------+ + Encounter Details +--------+ + + + + | Date | Type | Department | Care Team | Description | +--------+ + + + + | 11/15/ | Experimental Box Tester | [facility] | Sanjay Finnegan MD | Back pain, | | 2019 | | Neurosurgery at [address] | [address] | unspecified back | | | | [address] | [address] | location, | | | | [address] | [place] [address] | unspecified back | | | | [place], [place] | [phone] | pain laterality, | | | | [address] | | unspecified | | | | [phone] | | chronicity (Primary | | | [...] Leticia | | | | | | [place], [place] | | | | | | [address] | | | | | | | [...] RADIOLOGY | [address] | [place] [address] | [phone] | | VOICE RECOGNITION | | | | + + + + + documented in this encounter Visit Diagnoses + + | Diagnosis | + + | Back pain, unspecified back location, unspecified back pain laterality, unspecified | | chronicity - Primary | + + documented in this encounter"
--- OUTSIDE RECORDS SUMMARY | ~2019-02-23 | XMS | Encounter Summary ---
Demographics + + + | Address | [address] | | | [place] [address] | + + + | Home Phone [...] + +------+ + | Care Medical Office Assistant Name | Role | Phone | [...] | stenosis of | [address] | [address] Phone: | | | | | lumbar | [place], | [phone] | | | | | region | [place] [address] | Fax: | | | | | | Phone: | [phone] | | | | | | [phone] | | | | | | | Fax: | | | | | | | [phone] | | +--------+ + + + + + Encounter Details +--------+---------+ + + + | Date | Type | Department | Care Team | Description | +--------+---------+ + + + | 07/30/ | Office | [facility] [place] | Sushilcz, | Lumbar facet | | 2017 | Visit | PHYSIATRY [address] | [address] | arthropathy (HCC) | | | | [place], | [address] [place], | (Primary Dx); DDD | | | | [place] [address] | [place] [address] | (degenerative disc | | | | [phone] | [phone] | disease), lumbar; | | | | [...] not feel pain. You must have a party bus driver to get home from the hospital. [...] from the original. Елена Patino PA-C [address] [facility], [address] [place], [place] [address] FAX: PHYSICAL MEDICINE AND REHABILITATION H&P CHIEF [...] Right COLONOSCOPY 2008 Jeevan CORONARY ANGIOPLASTY 10/27/2016 [facility] FEMUR SURGERY Left KNEE ARTHROSCOPY Left 2005 NOSE SURGERY SHOULDER SURGERY Left 1979 Weeks; [facility] [place] SHOULDER SURGERY Right 2006 SKIN CANCER EXCISION 2012 Forehead squamous cell SKIN GRAFT Right Ankle TONSILLECTOMY AND ADENOIDECTOMY TOTAL KNEE ARTHROPLASTY Right 2013 Rojas; [facility] [place] TOTAL KNEE ARTHROPLASTY Left 2015 Rojas; [...] deficits with short or nursing home memory. He has appropriate fund of knowledge [...] in physical therapy, this was done at [facility], a total of 10 visits, his [...] 4. Patient was instructed to stay in [place] for the four hours after the lidocaine bl ock, to submit the pain log before leaving [facility]. We will call him with next step. [...]
--- OUTSIDE RECORDS SUMMARY | ~2019-02-23 | XMS | Encounter Summary ---
Demographics + + + | Address | [address] | | | [place] [address] | + + + | Home Phone | | + + + | Preferred Language | Unknown | + + + | Marital Status | | + + + | Jehovah'S Witness Affiliation | Unknown | + + + [...] Team Providers + +------+ + | Care Departure Clerk Name | Role | Phone | [...] | (Primary Dx) | | | | [place], | [facility], [place] | | | | | [place] [address] | [address] | | | | | [phone] | | | +--------+ + + + [...] + + | Performing | Address | City/State[facility] | Phone Number | | Organization | | | | + +---------+ + + | [facility] | | | | + +---------+ + + documented in this encounter Visit Diagnoses + + | Diagnosis | + + | Lumbar spondylosis - Primary Lumbosacral spondylosis without myelopathy | + + documented in this encounter"
--- OUTSIDE RECORDS SUMMARY | ~2019-02-23 | XMS | Encounter Summary ---
Demographics + + + | Address | [address] | | | [place] [address] | + + + | Home Phone | | + + + | Preferred Language | Unknown | + + + | Marital Status | | + + + | Restorationist Affiliation | NRP | + + + [...] Team Providers + +------+ + | Care Sampler Tester Name | Role | Phone | [...] | | [address] | [place] [address] | disease; Obstructive | | | | [address] | [phone] | sleep apnea | | | | [place], [place] | | syndrome; Coronary | | | | [address] | | arteriosclerosis in | | | | [phone] | | [place] artery; | | | | | | [...] MOTRIN, IBUPROFEN, ALEVE), vitamin E, herbal supplements, Quincy 3 fish oil 7-10 days before surgery [...] bottle of 4.0% Chlorhexidine Gluconate solution from [employer], or your local drug [...] no liver disease Renal: no renal failure Urology/Fire Chief: Within Defined Limits except as noted below [...] no liver disease Renal: no renal failure Urology/Fire Chief: Within Defined Limits except as noted below [...] Date ABO B 01/23/2019 RH Negative 01/23/2019 [facility] ([facility]): EK12/26/2018: Normal sinus rhythm, persistent low voltage QRS to inferior leads consistent with previous inferior MN, low voltage QRS to limb leads V 1, V2. Rate 69 bpm, MO 140 ms, QRS 82 ms, QTC 430 ms, tracing personally reviewed by Mercedes MANCINI, and similar morphology to EKG performed in January 2018 [facility] and "media" tab. Findings pertinent to this [...] mid-LAD (2017). Asymptomatic. Seen at cardiology office ([place]) last month for preop eval without issues. [...] hematology cons ultation with Dr. Mahin Marks ([place], [place]. [phone]) on 10/14 11/01 for perioperative anticoagulation management. [...] the visit) obtaining and reviewing extensive external [facility] records, counseling the pt regarding perioperative [...] to this patient's care. Franklin Cody MD [facility] [address] [place] [address] PREOPERATIVE ASSESSMENT CLINIC [address] [place] [address] Trini Castillo MA - 01/23/2019 10:30 AM [...] Dental Issues: False teeth Trini Campa MA [facility] PREOPERATIVE ASSESSMENT CLINIC [address] [place] [phone] documented in this en counter Plan of Treatment +--------+---------+ + + + | Date | Type | Specialty | Care Team | Description | +--------+---------+ + + + | 02/28/ | Office | Neurological Surgery | Cosme Baker, | | | 2018 | Visit | | [place] [address] | | | | | | [place], [place] | | | | | | [phone] | | | | | | | [...] BLOOD | [address] | [place] [address] | | | BANK | | | [...] BLOOD | [address] | [place] [address] | | | BANK | | | [...] [facility] | [address] | [place] [address] | | | LAB | | | [...] on | RO LAB | | the [place] [employer]'s Standards of Medical Care in | | | Diabetes - 2012. | | + + + + + + + + | Performing | Address | City/State/Zipcode | Phone Number | | Organization | | | | + + + + + | [facility] | [address] | [place] [address] | | | LAB | | | [...] | + + | Coronary arteriosclerosis in [place] artery Coronary atherosclerosis of [place] | | coronary artery | + + [...]
[~2019-02-23 15:35] MED LIST changes: +AMITRIPTYLINE H10 MG PO; +AMITRIPTYLINE H50 MG PO; +DEXAMETHASONE1 MG PO; +ELIQUIS5 MG PO; +FLUTICASONE PRO16 GM NAS; +GABAPENTIN600 MG PO; +LISINOPRIL10 MG PO; +NITROGLYCERIN0.4 MG SL; +OXYCODONE HCL5 MG PO; +POLYETHYLENE GL17 GM PO; +SENNA LAX8.6 MG PO
--- OUTSIDE RECORDS SUMMARY | 2019-02-23 15:38 | XMS ---
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 E.D. VISIT COUNT (12 MO.) 1 [facility] TOTAL 1 NOTE: Visits indicate total known visits. ED/UCC VISIT TRACKING (12 MO.) 02/23/2019 15:36 [facility] [place] TYPE: Emergency COMPLAINT: - JAW PAIN/FACIAL SWELLING INPATIENT VISIT TRACKING (12 MO.) 02/10/2019 15:20 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 - Presence of coronary angioplasty implant and graft - Allergy status to penicillin - Benign prostatic hyperplasia without lower urinry tract symp - Paroxysmal atrial fibrillation - terminal carman (current) use of anticoagulants - Essential (primary) hypertension - Psychophysiologic insomnia - 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 - Allergy status to oth drug/meds/biol subst status - Psychophysiologic insomnia - Arthrodesis status - Other fpc (current) drug therapy - Paroxysmal atrial fibrillation - Personal history of other venous thrombosis and embolism - Obstructive sleep apnea (adult) (pediatric) - Radiculopathy, site unspecified - Personal history of nicotine dependence - Hypothyroidism, unspecified - Presence of coronary angioplasty implant and graft - Essential (primary) hypertension - Other termination clerk (current) drug therapy - Arthrodesis status - terminal carman (current) use of opiate analgesic - Personal history of nicotine dependence - Obstructive sleep apnea (adult) (pediatric) - Encounter for other orthopedic aftercare - Allergy status to narcotic agent status - terminal carman (current) use of opiate analgesic - nursing home (current) use of anticoagulants - Allergy status to penicillin - nursing home (current) use of oral hypoglycemic drugs [facility] DIAGNOSES: 93137. Spinal stenosis, lumbar region without neurogenic robe . Other idiopathic scoliosis, lumbar region . Other intervertebral disc degeneration, lumbar region . Chronic embolism and thrombosis of left femoral vein . Other spondylosis with radiculopathy, lumbar region [email or web address]
[2019-02-23] MEDS ORDERED: TIZANIDINE HCL2 M1 PO (15:54)
[2019-02-23] MEDS ORDERED: CLINDAMYCIN HC300 MG PO (17:43)
== END 2019-02-23 18:07 | disposition home or self-care (01) ==
LOC: ED 15:35
DX: K11.20 Sialoadenitis, unspecified (principal); E11.9 Type 2 diabetes mellitus without complications; I10 Essential (primary) hypertension; E78.00 Pure hypercholesterolemia, unspecified; E03.9 Hypothyroidism, unspecified; Z87.891 Personal history of nicotine dependence; Z88.0 Allergy status to penicillin; Z88.8 Allergy status to other drugs, medicaments and biological substances; Z88.5 Allergy status to narcotic agent; Z88.1 Allergy status to other antibiotic agents; Z79.899 Other long term (current) drug therapy
CPT/HCPCS: 70486; 99283-25

== ENCOUNTER 2020-03-07 19:07 | Inpatient (IN) | payer MEDICARE, OTHER ==
[~2020-03-07] VITALS: Ht 175.3 cm; Wt 117.6 kg
[~2020-03-07 19:07] MED LIST changes: +CLINDAMYCIN HC300 MG PO; +TIZANIDINE HCL2 M1 PO
--- OUTSIDE RECORDS SUMMARY | 2020-03-07 19:10 | XMS ---
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 Care History Medical/Surgical 02/24/2019 [facility] Patient has appt with PCP 02/25/2019 @ 11:40am. Small VISIT COUNT (12 MO.) 1 [facility]. TOTAL 1 NOTE: Visits indicate total known visits. 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
--- NOTE | 2020-03-07 23:59 | EKG ---
[facility] [address] [facility] [place] [address] Signed Normal sinus rhythm Normal ECG When compared with ECG of 26-OCT-2016 20:25, No significant change was found Confirmed by SUREKHA ESPARZA MD ([id number]) on 03/07/2020 11:59:34 PM Electronically Signed By: SUREKHA ESPARZA MD 03/07/20 2359 PATIENT NAME: NOLA VELASCO Electrocardiogram DATE OF : 47 PHYSICIAN: SUREKHA ESPARZA MD REPORT #: [id number] REPORT IS CONFIDENTIAL AND NOT TO BE RELEASED WITHOUT AUTHORIZATION
--- NOTE | 2020-03-08 05:00 | NUR ---
PATIENT ARRIVED VIA STRETCHER. PATIENT ABLE TO ASSIST SOME TO TRANSFER TO THE BED. PATIENT IS ALERT AND ORIENTED. REPORTS PAIN IN TARA SHOULDERS 9/10. TOLERATING ROOM AIR. VS STABLE. IGLESIAS DRAINING CLEAR YELLOW URINE. ABRASION NOTED ON LEFT ELBOW, COVERED WITH ALYVEN. LEFT WEAKNESS AND FACIAL DROOP NOTED. EYE DROPS APPLIED TO BOTH EYES. WARM WET WASH CLOTH APPLIED TO EYES FOR SEVERAL MINS TO CLEAR OUT DRIED DRAINAGE. LIPS CLEARED OF SECREATIONS AND OINTMENT APPLIED. IV FLUIDS STARTED PER ORDER, SITE WNL.
--- NOTE | 2020-03-08 06:05 | NUR ---
PATIENT TOLERATED A FEW SIPS OF WATER. REQUIRES ASSISTANCE DUE TO WEAKNESS. PATIENT IS TREMBLING. ORAL TEMP WNL. WARM BLANKETS PROVIDED.
--- NOTE | 2020-03-08 08:06 | NUR ---
REPORT RECEIVED FROM MADI BROOKS, WILL CONTINUE PLAN OF CARE.
--- NOTE | 2020-03-08 08:51 | NUR ---
PT SITTING UP IN BED SEMIFOWLERS EATING BREAKFAST. PT ALERT BUT ORIENTED ONLY TO SELF, YEAR, AND STATE BUT NOT FACILITY OR EVENT. PT WAS REOIRIENTED. PT REPORTED MILD NECK PAIN WHICH SUBSIDED WHEN SAT UP. PT NOW STATES HE DOES NOT NEED ANY PRN PAIN MEDICATION. PT IV INFUSING AT ORDERED RATE, SPO2 AT 99% ON ROOM AIR. PT REPORTS NO FURTHER NEEDS AT THIS TIME AND IS EATING BREAKFAST. BED IN LOWEST POSITION AND CALL LIGHT WITHIN REACH, WILL CONTINUE PLAN OF CARE.
[2020-03-08] MEDS ORDERED: OXYCODONE HCL5 MG PO (09:38)
[2020-03-08] MEDS ORDERED: AMITRIPTYLINE H50 MG PO (09:39)
--- NOTE | 2020-03-08 10:43 | NUR ---
ULTRASOUND IN ROOM WITH PT. PT. IS CURRENTLY GETTING A RENAL ULTRASOUND. URINE SAMPLE COLLECTED FROM IGLESIAS AND SENT TO LAB. PT REPORTS NO NEEDS AT THIS TIME. ULTRASOUND COMPLETE. WILL CONTINUE PLAN OF CARE. BED IN LOWEST POSITION, CALL LIGHT WITHIN REACH.
--- NOTE | 2020-03-08 11:21 | NUR ---
PT AWAKE IN BED, IV FLUIDS INFUSING ORDERED. ORAL MEDICATIONS ADMINISTERED ORDERED AND PRN OXYCODONE ADMINISTERED DUE TO 7/10 PAIN IN THE LEFT SIDE OF THE NECK. PT REPORTS NO FURTHER NEEDS AT THIS TIME. PHYSICAL THERAPY NOW IN ROOM WITH PT., WILL CONTINUE PLAN OF CARE.
--- NOTE | 2020-03-08 13:01 | NUR ---
SPEECH THERAPY IN WITH PT. TO ASSESS HIM. IV FLUIDS INFUSING ORDERED, PT INFORMED EARLIER THAT WAS COMING TO VISIT HIM. PT REPORTED NO FURTHER NEEDS AT THAT TIME, WILL CONTINUE PLAN OF CARE.
[2020-03-08] MEDS ORDERED: FLUTICASONE PRO16 GM NAS (14:47)
[2020-03-08] MEDS ORDERED: NEURONTIN600 MG PO ×2 (14:48)
--- NOTE | 2020-03-08 14:49 | NUR ---
PT AWAKE IN ROOM LAYING IN BED, AT BEDSIDE. BROUGHT PT'S HOME EYE OINTMENT WHICH WAS GIVEN TO THE PHARMACIST. PT REPORTS NO NEEDS AT THIS TIME, IV FLUIDS INFUSING ORDERED, BED IN LOWEST POSITION, WILL CONTINUE PLAN OF CARE.
[2020-03-08] MEDS ORDERED: ADVANCED EYE R3.5 GM OS (14:51)
--- NOTE | 2020-03-08 14:52 | NUR ---
MED REC COMPLETE
--- NOTE | 2020-03-08 15:50 | NUR ---
PT LAYING IN BED WITH AT BEDSIDE. NEW BAG OF CONTINUOUS IV FLUID STARTED. PT REPORTS NO FURTHER NEEDS AT THIS TIME. BED IN LOWEST POSITION, CALL LIGHT WITHIN REACH. WILL CONTINUE PLAN OF CARE.
--- NOTE | 2020-03-08 16:49 | NUR ---
PATIENT SLEEPING. STAFF STATES IS STILL SOMEWHAT CONFUSED. WILL NOT AWAKEN AT THIS TIME.
[2020-03-08] MEDS ORDERED: TYLENOL EXTRA500 MG PO (16:58)
[2020-03-08] MEDS ORDERED: ASPIRIN81 MG PO (16:59)
[2020-03-08] MEDS ORDERED: MIRALAX119 GM PO (17:00)
--- NOTE | 2020-03-08 19:34 | NUR ---
CALLED AND UPDATED DR. ESPARZA ON PATIENT'S INCREASED HR AND POTENTIAL TO FLIP INTO AFIB. PT NORMALLY TAKES [address] Q NIGHT. [address] ESPARZA ENTERING ORDERS FOR PO METOPROLOL. HR NOW 80s WHILE RESTING. REPORT GIVEN TO REGIONAL RETAIL SALES MANAGER.
--- NOTE | 2020-03-08 19:48 | NUR ---
REPORT RECEIVED FROM DAY SHIFT RN. IN TO CHECK ON PT, PT AWAKE IN BED INFORMED OF RECENT CALL TO DR ESPARZA AND PLAN TO RESTART METOPROLOL, QUESTIONS ANSWERED. PT REQUESTS SOME ICE CREAM WILL CALL FLOAT DIDACTIC PROGRAM IN DIETETICS DIRECTOR. RESTING HR CURRENTLY 95.
--- NOTE | 2020-03-08 20:45 | NUR ---
IN TO DO HS MEDS, PT GIVEN WARM BLANKET AND ASSISTED WITH APPLYING EYE OINTMENT AND TAPE OVER LEFT EYE. IS WANTING TO TRY TO SLEEP FOR THE NIGHT NOW. TOOK MEDS WITHOUT DIFFICULTY.
--- NOTE | 2020-03-08 23:00 | NUR ---
PT HAS CALLED OUT A COUPLE OF TIMES, ASKING HOW TO GET OUT OF THE HOSPITAL, TRYING TO CALL TO COME AND GET HIM, SATLORNA "ADRIAN GOT TO GET HOME AND GET BUSY", IS NOT ABLE TO ANSWER WHERE HE IS AT, HAD BEEN SLEEPING APPROX ONE HOUR BUT JUST WOKE UP THINKING IT WAS MORNING. REORIENTED AND IS NOW LYING BACK TO TRY TO SLEEP, BED ALARM ON.
--- NOTE | 2020-03-09 | NUR ---
PT CALLED TO ASK ABOUT "GAS LEAK INDICATOR" AND POINTS TO RED LIGHT ON TV. CONFUSED REGARDING SITUATION, ATTEMPTED TO REORIENT AND ENCOURAGED TO SLEEP. DENIES NEEDS OR PAIN, CALL LIGHT IN HAND AND BED ALARM ON.
--- NOTE | 2020-03-09 00:25 | NUR ---
PT CALLS TO ASK "HOW DO I GET OUT OF HERE", WHEN ASKED IF HE KNOWS WHERE HE IS AT HE STATES "WELL NO, NOT REALLY". REORIENTED PT TO HOSPITAL AND TIME, HELPED PT TO REPOSITION IN BED AND ENCOURAGED HIM TO TRY TO SLEEP. DENIES PAIN OR OTHER NEEDS. CALL LIGHT IN HAND. BED ALARM ON.
--- NOTE | 2020-03-09 01:30 | NUR ---
PT FOUND TO HAVE PULLED HIS IV OUT. NEW IV STARTED IN RIGHT FOREARM. PT REORIENTED.
--- NOTE | 2020-03-09 02:56 | NUR ---
PATIENT WAS YELLING FROM ROOM. HE STATED THAT HE COULD NOT BREATH. REPLACED HIS PULSE OX AND 02 SAT WAS 97%. ASSISTED WITH BLOWING HIS NOSE. LUNG SOUNDS WERE CLEAR. IGLESIAS EMPTIED OF 360ML CLEAR YELLOW URINE. WILL CONTINUE TO MONITOR
--- NOTE | 2020-03-09 03:10 | NUR ---
PT C/O NOT BEING ABLE TO BREATHE IE STUFFED NOSE. ASKING FOR OXYGEN, EXPLAINED DID NOT NEED OXYGEN FOR STUFFY NOSE. SALINE SPRAYED UP NOSE. PT REASURED.
--- NOTE | 2020-03-09 04:24 | NUR ---
CALLS TO GET UP TO BSC TO TRY TO HAVE BOWEL MOVEMENT BUT CANNOT. HR UP TO 116 BUT HTEN DOWN TO 70'S. STAND BY ASSIST, WAS STEADY ON HIS FEET AND MOVED FAIRLY WELL WITH SOME LEFT ARM WEAKNESS. DENIES PAIN.
--- NOTE | 2020-03-09 06:49 | NUR ---
UP TO BR FOR BM THEN UP TO CHAIR WITH CALL LIGHT IN HAND. PT DOES NOT SEEM CONFUSED THIS MORNING, ANSWERING QUESTIONS APPROPRIATLEY.
--- NOTE | 2020-03-09 07:30 | NUR ---
HANDOFF REPORT RECEIVED FROM CONTROL PANEL TESTER RN.
--- NOTE | 2020-03-09 08:05 | NUR ---
PT SITTING IN CHAIR. PT CONFUSED, UNSURE OF WHERE HE IS, OFF BY A FEW DAYS, TRYING TO CALL SON BUT HAVING DIFFICULTY USING PHONE. PT ON ROOM AIR, LUNG SOUNDS CLEAR, DENIES SOB. BOWEL TONES ACTIVE, DENIES NAUSEA, ASKING ABOUT BREAKFAST. PT WITH SKIN GRAFT FLAP TO LEFT HEAD, PALE IN COLOR. LEFT FACIAL DROOP, SLURRED SPEECH. SKIN GRAFT DONOR SITE TO SEFT THIGH, INCISION WELL APPROXIMATED, WITHOUT S/S OF INFECTION. CMS INTACT, PT WITH 1+ EDEMA TO BLE. IV FLUIDS INFUSING AT LR AT 75ML/HR. IGLESIAS CATH IN PLACE, DRAINING YELLOW URINE.
--- NOTE | 2020-03-09 08:17 | NUR ---
PT ASSISTED WITH DENTURE CARE.
--- NOTE | 2020-03-09 08:42 | NUR ---
MORNING MEDICTIONS ADMINISTERED PER EMAR. PT PROVIDED WITH WARM WASH CLOTH TO WASH FACE AND HANDS. LINENS AND GOWN CHANGED. AWAITING BREAKFAST TRAY. PT DENIES OTHER NEEDS AT THIS TIME.
--- NOTE | 2020-03-09 09:54 | NUR ---
PATIENT SLEEPING. STAFF STATES HE IS STILL A LITTLE CONFUSED. NOT HERE AT THIS TIME. CALLED HER CELL AND LEFT VOICEMAIL FOR CALLBACK.
--- NOTE | 2020-03-09 10:05 | NUR ---
PATIENT WAS WORKING WITH MELVINA, SPEECH THERAPIST, DURING BREAKFAST AT 0900. I STOPPED IN TO BRING HIM CREAM OF WHEAT SINCE HE DIDN'T LIKE THE OVER EASY EGGS. MELVINA MENTIONED DISCUSSING NUTRITIONALLY DENSE FOODS THAT PATIENT CAN CONSUME WHEN HE GOES HOME DUE TO RECENT NECK SURGERY AND TOTAL PAROTIDECTOMY AND TOTAL AURICULECTOMY ALONG WITH TEMPORAL BONE RESECTION AND NECK DISSECTION. HE CAN'T OPEN HIS MOUTH REAL WIDE. HE ALSO HAS SENSITIVITY TO HOT AND COLD. HE WAS EATING APPLESAUCE AND CREAM OF WHEAT WELL WHEN I WAS IN THERE. HIS SIGNIFICANT OTHER, JASMIN, WILL BE GOOD TO TALK TO, TOO. WILL STOP BY LATER TO SEE IF SHE IS HERE. CONTINUE SOFT FOODS PER SPEECH THERAPY.
--- NOTE | 2020-03-09 11:25 | NUR ---
PATIENT JASMIN RETURN CALL. SHE STATES PATIENT HAS BEEN WEAK SINCE CANCER TREATMENT AND RECENT HOSPITALIZATION. SHE STATES HE FELL AFTER COMING HOME FROM HOSPITAL BECAUSE HE CAUGHT THE WALKER ON SOMETHING. SHE STATES THEY HAVE A WHEELCHAIR ALSO. THEY HAVE A RAMP THAT IS ALMOST FINISHED INTO BACK DOOR. HAVE WALK IN SHOWER WITH SEAT. PATIENT USES A CPAP AT HOME, NO OXYGEN. SHE IS NOT CONCERNED FOR COST OF MEDS/FOOD/UTILITIES AT THIS TIME. SHE STATES SHE PLANS ON HIS RETURNING HOME AT DISCHARGE. SHE STATES HE ALWAYS GETS CONFUSED WITH ILLNESS. SHE IS NOT SURE OF ANYTHING THEY NEED TO DISCHARGE SAFELY AT THIS TIME. CM WILL CONTINUE TO FOLLOW NEEDED.
--- NOTE | 2020-03-09 13:00 | NUR ---
DR. ESPARZA HERE TO SEE PATIENT. ORDERS RECIEVED.
--- NOTE | 2020-03-09 13:20 | NUR ---
IGLESIAS CATH DC'D, EMPTIED FOR 240 CC OF CLEAR YELLOW URINE. UP TO BR WITH ASSIST TO EXPELL MED LIQUID BROWN STOOL THEN TRANSFERRED TO CHAIR.
--- NOTE | 2020-03-09 14:30 | NUR ---
PT RESTING IN BED, AT BEDSIDE. PT REQUESTING PAIN MEDICATION, GIVEN TYLENOL AND OXYCODONE. PT ON ROOM AIR, LUNG SOUNDS CLEAR. PT WITHOUT IGLESIAS CATH, DUE TO VOID. NO ACUTE CHANGES. PT DENIES OTHER NEEDS AT THIS TIME.
--- NOTE | 2020-03-09 15:16 | NUR ---
PT UP AND INSISTING TO LEAVE AMA, AMA PAPER SIGNED. PT ASSISTED TO GET DRESSED. IV CATH REMOVED. PT BELONGINGS RETURNED. PT AWAITING RIDE.
--- NOTE | 2020-03-09 16:32 | NUR ---
PT RESTING IN BED AFTER WORKING WITH P.T., PT RATING PAIN 7/10, BUT STATES PAIN MEDICATION WAS EFFECTIVE FOR MANAGING PAIN. PT ASSISTED TO ORDER DINNER. PT DENIES OTHER NEEDS AT THIS TIME.
--- NOTE | 2020-03-09 18:18 | NUR ---
PT WITH REPORT OF HEARTBURN, GIVEN MAALOX. VSS. PT SBA WITH FWW TO BATHROOM, VOIDED 100ML/HR. ASSISTED BACK TO BED. PT DENIES OTHER NEEDS AT THIS TIME.
--- NOTE | 2020-03-09 19:40 | NUR ---
REPORT RECEIVED FROM DAY SHIFT RN. PT UP IN BR, HAD LOOSE STOOL THEN ASSISTED BACK TO BED. ASSESSMENT DONE. DENIES NEEDS OR PAIN AT THIS TIME. CONFUSED TO SITUATION AND TIME.
--- NOTE | 2020-03-09 21:22 | NUR ---
CALLS TO GET UP TO BR FOR LOOSE STOOL AND THEN BACK TO BED USING WALKER, STEADY ON FEET, HS MEDS GIVEN. OXYCODONE GIVEN PER REQUEST AND BED ALARM ON.
--- NOTE | 2020-03-09 22:35 | NUR ---
UP TO BR FOR BM AND BACK TO BED, BED ALARM ON
--- NOTE | 2020-03-10 02:32 | NUR ---
CONT TO BE AWAKE, CALLING FFREQUENTLY FOR QUESTIONS LIKE "AM I SUPPOSED TO BE AWAKE OR ASLEEP" AND "WHATS THAT TV FOR". CONT TO TRY TO REORIENT PT AND ENCOURAAGE HIM TO SLEEP.
--- NOTE | 2020-03-10 04:20 | NUR ---
PT CONT TO BE RESTLESS AND CONFUSED, UP AND DOWN IN BED FREQUENTLY. CALLS TO STATE HE IS COLD THEN HOT AND FOR APPROX THIRTY MINUTES WAS COMPLAINING "IM SO WET, IM JUST SO SWEATY", BUT NO DIAPHORESIS NOTED-PT FELT WARM AND DRY. TEMP CHECKED WAS 98.5 ORALLY. VSS.
--- NOTE | 2020-03-10 04:30 | NUR ---
PT HAS CONTINUED TO BE UP FREQUENTLY TO THE BR TO VOID AND HAVE LOOSE STOOLS, C/O GAS. OUT TO WALK IN HALLS A FEW TIMES WITH WALKER, TOLERATING WELL AND STEADY ON HIS FEET. CONT TO BE CONFUSED AND SAY THINGS LIKE, "CAN YOU FLIP THOSE NUMBERS AROUND ON THE CLOCK THEYRE BACKWARDS" AND "I CANT FIGURE OUT WHERE ALL THE APPLES ARE, WHAT ARE WE GOING TO DO ABOUT THAT."
--- NOTE | 2020-03-10 06:10 | NUR ---
PT UP TO BR, WHEN FINISHED WALKS OUT TO HALLWAY WITH NO CLOTHES ON, ASKING WHAT TIME IS IT AND WHERE ARE THE APPLES. ESCORTED BACK TO ROOM, FRESH GOWN PLACED AND ASSESSMENT DONE.
--- NOTE | 2020-03-10 08:15 | NUR ---
Lying in bed with eyes closed at this time. Call light in reach, bed rails up X2.
--- NOTE | 2020-03-10 08:22 | NUR ---
Ambulates to door and looks out of room to luevano. States he is looking for his spouse. Informed his is not here at this time. Verbalizes understanding, returns to room with ABILIO Nuno
--- NOTE | 2020-03-10 08:41 | NUR ---
Assessment completed. Breakfast provided, patient does not want food at this time. IV site infiltrated to Right arm. No fluids infusing. AM medications administered as prescribed. Patient denies other needs at this time. Call light in reach, bed rails up X2.
--- NOTE | 2020-03-10 08:54 | NUR ---
Informed Dr. Delgado of IV site infiltration. States no need for IV will be DC'd home today.
--- NOTE | 2020-03-10 09:20 | NUR ---
bed bath given linens and gown changed
--- NOTE | 2020-03-10 10:00 | NUR ---
Spoke with Catracho, he denies needs to go home. will pick him up, he states he has all the DME he needs and a ramp to get into his home. Will dc when Dr. Carlos writes orders.
--- NOTE | 2020-03-10 10:11 | NUR ---
IV site remains infiltrated, orders to DC. IV DC'd, catheter intact.
--- NOTE | 2020-03-10 12:24 | NUR ---
DC INSTRUCTIONS TO PATIENT AND SPOUSE. VERBALIZE UNDERSTANDING.
--- NOTE | 2020-03-10 13:08 | NUR ---
ABILIO [place]KE GETTING PT READY IN WC FOR DC. GAVE ENCOURAGEMENT TO PT, GAVE A BLANK STARE AND SEEMED A LITTLE CONFUSED. EYES OPEN A LITTLE MORE AND WAVED EXTENDED A BLESSING
--- NOTE | 2020-03-10 16:00 | NUR ---
Received order fro , called and spoke with Lara. She would like [facility].
--- NOTE | 2020-03-10 17:27 | NUR ---
Face sheet, dc summary, PT/OT eval and notes faxed to [facility].
--- NOTE | 2020-03-11 08:07 | NUR ---
PTS CALLED NURSING NETWORK DIRECTOR TO REPORT SHE BELIEVED PT TO BE IN WITHDRAWL FROM GABAPENTIN. PTS REPORTS THAT PT TAKES 600 MG FOUR TIMES A DAY. HOWEVER THIS IS NOT WHAT WAS ON PTS MED REC. REPORTED TO DR ESPARZA, WHO GAVE AN ORDER FOR PT TO RESTART WHAT HE WAS TAKING AT HOME. CALLED BACK TO PTS AND LET HER KNOW.
== END 2020-03-10 12:20 | disposition home health service (06) | DRG 682 ==
LOC: ED 19:07 → CCU 03-08 04:40
PROVIDERS: ADMIT Internal Medicine; ATTEND Internal Medicine
DX: N17.9 Acute kidney failure, unspecified (principal); G93.41 Metabolic encephalopathy; C77.9 Secondary and unspecified malignant neoplasm of lymph node, unspecified; C79.89 Secondary malignant neoplasm of other specified sites; E86.0 Dehydration; Z20.828 Contact with and (suspected) exposure to other viral communicable diseases; R26.2 Difficulty in walking, not elsewhere classified; E11.9 Type 2 diabetes mellitus without complications; I10 Essential (primary) hypertension; I48.0 Paroxysmal atrial fibrillation; C44.329 Squamous cell carcinoma of skin of other parts of face; G31.84 Mild cognitive impairment of uncertain or unknown etiology; G89.3 Neoplasm related pain (acute) (chronic); E78.5 Hyperlipidemia, unspecified; E03.9 Hypothyroidism, unspecified; G47.33 Obstructive sleep apnea (adult) (pediatric); N40.0 Benign prostatic hyperplasia without lower urinary tract symptoms; I25.10 Atherosclerotic heart disease of native coronary artery without angina pectoris; Z98.61 Coronary angioplasty status; Z86.718 Personal history of other venous thrombosis and embolism; Z88.0 Allergy status to penicillin; Z88.8 Allergy status to other drugs, medicaments and biological substances; Z88.5 Allergy status to narcotic agent; Z79.01 Long term (current) use of anticoagulants; Z79.82 Long term (current) use of aspirin; Z79.891 Long term (current) use of opiate analgesic; Z79.899 Other long term (current) drug therapy
CPT/HCPCS: 36415; 51702; 51798; 71045; 76770; 80048; 80053; 80069; 81001; 82565; 82570; 83605; 84300; 84484; 84520; 84540; 85025; 85610; 85730; 92610; 93005; 93010; 97110; 97116; 97163; 97166; 99285-25; C9803; J7030; J7121; U0003

== ENCOUNTER 2020-03-21 20:57 | Inpatient (IN) | payer MEDICARE, OTHER ==
[~2020-03-21] VITALS: Ht 175.3 cm; Wt 112.4 kg
[~2020-03-21 20:57] MED LIST changes: +ADVANCED EYE R3.5 GM OS; +ASPIRIN81 MG PO; +MIRALAX119 GM PO; +NEURONTIN600 MG PO; +TYLENOL EXTRA500 MG PO
--- OUTSIDE RECORDS SUMMARY | 2020-03-21 21:00 | XMS ---
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 - Has Care Guidelines - PDMP - [facility] - 2 Visits in 30 Days CARE PROVIDERS OSCAR ANTUNEZ [facility] 02/24/2019-Current PHONE: [phone] Derrick has no Care Guidelines for this patient. Care History Medical/Surgical 03/08/2020 [facility] - Patient is currently established with [facility]. If patient is seen in the ED during business hours. Please contact CHWs at [facility]. Care Recommendation: If this patient has had 5 or more Emergency Department visits in the last 12 months.\T\nbsp; Patient will require education on the scope and purpose of the ED as an acute care provider not a Primary Care Provider and should not be utilized for chronic conditions.\T\nbsp; These are guidelines and the provider should exercise clinical judgment when providing care. 02/24/2019 [facility] Patient has appt with PCP 02/25/2019 @ 11:40am. E.D. VISIT COUNT (12 MO.) 2 [facility] TOTAL 2 NOTE: Visits indicate total known visits. ED/UCC VISIT TRACKING (12 MO.) 03/21/2020 20:57 [facility] [place] TYPE: Emergency COMPLAINT: - WEAKNESS 03/07/2020 19:07 [facility] TYPE: Emergency COMPLAINT: - WEAKNESS INPATIENT VISIT TRACKING (12 MO.) 03/08/2020 04:40 [facility] [place] TYPE: Critical Care COMPLAINT: - ACUTE RENAL FAILURE DIAGNOSES: - Allergy status to other drugs, medicaments and biological substances - Secondary and unspecified malignant neoplasm of lymph node, unspecified - Difficulty in walking, not elsewhere classified - Squamous cell carcinoma of skin of other parts of face - Personal history of other venous thrombosis and embolism - Benign prostatic hyperplasia without lower urinary tract symptoms - senior care (current) use of opiate analgesic - Coronary angioplasty status - senior care (current) use of anticoagulants - Hypothyroidism, unspecified - Contact with and (suspected) exposure to other viral communicable diseases - Hyperlipidemia, unspecified - Secondary malignant neoplasm of other specified sites - Paroxysmal atrial fibrillation - Other correction (current) drug therapy - Metabolic encephalopathy - Neoplasm related pain (acute) (chronic) - Dehydration - Acute kidney failure, unspecified - Atherosclerotic heart disease of [place] coronary artery without angina pectoris - Type 2 diabetes mellitus without complications - Allergy status to narcotic agent - Essential (primary) hypertension - Mild cognitive impairment, so stated - Allergy status to penicillin - 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
[2020-03-21] MEDS ORDERED: AMITRIPTYLINE H10 MG PO (21:41)
--- NOTE | 2020-03-22 03:45 | NUR ---
PT ADMITTED FROM ED AT 0245 - HELPED TRANSFER FROM [facility] TO BED. LARGE SCABBING OVER INCISION L SIDE OF HEAD WITH EAR REMOVE. L EYE WITH YEKLLOW DRAINAGE, PUT OINT IN EYE PRIOR TO GOING HOME. PT UNABLE TO SHUT EYRLIED DUE TOPAST SURGERY COMPLICATION. FLUSHED FACE. C/O UNABLE TO USE L ART FROM RECENT FX AND SJOULDER SURGERY, GOOD CMS, WEAK BEHAVIORAL SCIENCES DEPARTMENT CHAIR. BRUISING OVER HANDS AND LE, EDEMA TO ANKLES AND FEET, ELEVATED, FLAT AFFECT. COOPERATIVE, [address], IVF STARTED. TARA CALLED AND WAS CONCERNED ABOUT PT GOING THROUGH MED WITHDRAWALS HE HAS NOT BEEN GETTING HIS GABAPENTIN, AMYTHRIPTYLINE AND OXYCODONE LIKE HE USUALLY DOES/HAS DONE IN THE PAST. PER DR JIMÉNEZ NOTES, HE IS AWARE AND HE WILL NOT RESTART AMYTRIPTYLINE AT THIS DUE TO PTS CURRENT IMPAIRED CONGNITION, AND WILL RESTART GABAPENTIN AT LOWER DOSE , WILL REASSESS NEED FOR NARCOTICS FOR CHRONIC KELLY.
--- NOTE | 2020-03-22 04:22 | NUR ---
bed alarm going off, pt standing side of bed. helped to br, voided large amount of clear urine. back to bed, does fast gait, impulsive. does use L arm slightly.
--- NOTE | 2020-03-22 06:02 | NUR ---
PT ADMIT EARLIER THIS AM. SURGICAL SITE W EAR REMOVAL L LATERAL SIDE OF HEAD, SURGICAL SITE SCABBED OVER WITH YELLOW, NONODOROUS DRAINAGE SCANT AMOUNT OF DRAINAGE PRESENT. L EYE WITH YELLOW DISCHARGE. PT NEEDS TAPE APPLIED TO EYE IT DOES NOT CLOSE ONITS OWN. HAS MULTIPLE DRY PSORIATIC LIKE SKINERUPTIONS ON ARMS AND BACK. EDEMA TO LE. DRY SKIN. TEMP AT THIS TIME IS 99.9, ROOM TEMP DECREAED FROM 77 TO 71, PT HAD 7 WARM BLANKETS, 2 REMOVED, STATED 'MARIE ALWAYS COLD,' INSTRUCTED ON TEMP PRECAUTIONS, . SEMI RECEPTIVE. DECREASED MOTION OF L ARM PER PT DUE TO MULTIPLE FX AND SHOULDER SURGERIES. 1PA, IMPULSIVE TAKES SHORT, FAST SUFFLING GAIT LIKE STEPS. USES URINAL, UP TO BR, NO BM. TOLERATING SIPS WELL, C/.O BACK POAIN AND MEDICATED WITH TYLENOL 650MF. PT AND CONCERNED ABOUT PTS [id number] MEDS NOT BEING GIVEN TO PT. PLEASE SEE DR JIMÉNEZ NOTES FOR THAT. AWARE. PT COOP, FLAT AFFECT
--- NOTE | 2020-03-22 06:55 | NUR ---
ASSISTED PT TO CHAIR. CALL LIGHT WITHIN REACH.
--- NOTE | 2020-03-22 06:56 | NUR ---
UP TO CHAIR ON HIS REQUEST, MILD RELIEF FROM PAIN MEDS, CALL LIGHT AT HANDS REACH. IVF INFUSING
--- NOTE | 2020-03-22 07:21 | NUR ---
pt back to bed from chair, tolerated well,
--- NOTE | 2020-03-22 07:23 | NUR ---
ASSISTED PATIENT FROM CHAIR BACK TO BED. CALL LIGHT IN REACH. NO OTHER NEEDS AT THIS TIME.
--- NOTE | 2020-03-22 08:02 | NUR ---
PT UP IN CHAIR AT TIME OF REPORT, NOC RN REPORTS HE IS MUCH CLEARER OF MIND THAN EARLIER IN HER SHIFT. MOVES FROM CHAIR TO BED FOR COMFORT. BEDSIDE REPORT RECEIVED. PT DENIES NEEDS AT THIS TIME, CALL LIGHT IN HAND
--- NOTE | 2020-03-22 09:59 | NUR ---
PATIENT UP TO BATHROOM AND BACK TO BED, 1PA FWW. PT IN ROOM NOW TO WORK WITH PATIENT. LINENS CHANGED. FRESH WATER GIVEN. CALL LIGHT IN REACH. NO FURTHER NEEDS AT THIS TIME.
--- NOTE | 2020-03-22 11:00 | NUR ---
PT'S PHONES CONCERNED ABOUT ROUTINE MEDS AND TAPE FOR PT EYE. ASSURED HER THESE THINGS WOULD BE ATTENDED TO. SHE REPORTS SHE WILL BE IN LATER. DR ESPARZA ORDERS MEDICATIONS DISCUSSED WITH
--- NOTE | 2020-03-22 12:30 | NUR ---
vancomycin 2500mg IV given. Start vancomycin 1250mg IV q 12 hrs. Draw for vancomycin trough level 10/22/19 @ 1130
--- NOTE | 2020-03-22 14:24 | NUR ---
PT REPORTS PAIN 6/10 AT HIS HEAD. 10MG OXYCODONE ADMINISTERED AT THIS TIME PRN. PT ALERT AND ORIENTED SITTING UP IN RECLINER
--- NOTE | 2020-03-22 14:49 | NUR ---
PT UP IN THE CHAIR IS PRESENT VISITING ACTIVELY. PT AGREES HE IS COMFORTABLE DENIES NEEDS OF. MEDICATIONS REVIEWED WITH PT AND PER THIER REQUEST
[2020-03-22] MEDS ORDERED: DEXAMETHASONE4 MG PO (15:44)
[2020-03-22] MEDS ORDERED: ONDANSETRON ODT8 MG PO (15:44)
--- NOTE | 2020-03-22 16:05 | NUR ---
MED REC COMPLETE
--- NOTE | 2020-03-22 18:09 | NUR ---
PT RESTING IN BED AFTER EVENING MEAL, IS PRESENT IN THE ROOM. DR ESPARZA WILL BE IN TO SEE HIM LATER.
--- NOTE | 2020-03-22 18:47 | NUR ---
DR ESPARZA IN TO SEE PT, IS PRESENT. ALL QUESTIONS ANSWERED. CULTURES TAKEN SENT TO LAB
--- NOTE | 2020-03-22 18:49 | NUR ---
PATIENT IN BED RESTING, AT BEDSIDE. CALL LIGHT IN REACH. NO FURTHER NEEDS AT THIS TIME.
--- NOTE | 2020-03-22 19:45 | NUR ---
REPORT RECEIVED FROM DAY SHIFT RN. PT UP TO BR WITH SBA AND FWW WITH HEALTH SPECIALIST. NO NEEDS AT THIS TIME. IN ROOM. WHITE BOARD UPDATED. CALL LIGHT IN REACH.
--- NOTE | 2020-03-22 21:45 | NUR ---
ASSISTED PATIENT TO THE BATHROOM AND BACK TO BED. NO OTHER NEEDS AT THIS TIME.
--- NOTE | 2020-03-22 22:00 | NUR ---
ASSESSMENT COMPLETE. SCHEDULED MEDS ADMINISTERED. PRN ADMINISTERED FOR 9/10 "HEAD" PAIN. BLOOD SUGAR WNL, SLIDING SCALE INSULIN HELD. LEFT EYE CLEANSED WITH WARM CLOTH, OINTMENT APPLIED. LEFT EYE TAPED SHUT PER PT AND INSTRUCTION. INCISION TO LEFT SIDE OF FACE WITH PURULENT DRAINAGE NEAR BOTTOM. SKIN CLEANSED AND GAUZE PLACED UNDER CHIN TO HELP WITH DRAINAGE. LEFT SIDE OF FACE RED AND SWOLLEN. CLEAN GOWN AND PILLOW CASE PROVIDED. WARM BLANKETS GIVEN. PT DENIES QUESTIONS OR CONCERNS. CALL LIGHT IN REACH.
--- NOTE | 2020-03-22 22:30 | NUR ---
PATIENT CALLED C/O HOT. ROOM TEMP PUT TO 70 FROM 72. SMALL FAN PROVIDED.
--- NOTE | 2020-03-23 00:20 | NUR ---
PT REQUESTING SLEEP AID. PT REPORTS HOME MED AMITRIPTYLINE USED FOR SLEEP DISCUSSED WITH PT THAT IT HAS NOT BEEN ORDERED AT THIS TIME DUE TO ALTERED SENSORIUM UPON ADMISSION. PT VERBALIZES UNDERSTANDING. OFFERED SLEEP MASK AND EAR PLUGS, PT REFUSES. PT AGREED TO TAKE TYLENOL IN AN ATTEMPT TO RELAX. UP TO BR WITH SBA TO VOID 200 ML. GAIT STEADY. BACK TO BED, CASSY WELL. ASSISTED PT TO REPOSITION IN BED. LIGHTS OUT. CALL LIGHT IN REACH.
--- NOTE | 2020-03-23 02:02 | NUR ---
CALL LIGHT ANSWERED. PT REQUESTING GABAPENTIN. DISCUSSED WITH PT HE RECEIVED THAT MED WITH EVENING MEDS. PT EXPRESSED FRUSTRATION WITH SCHEDULED TIMES OF GABAPENTIN, RECOMMENDED DISCUSSING SCHEDULE WITH MD. PT AGREED. PT ALSO C/O 10/23 "HEAD" PAIN. PRN ADMINISTERED PER EMAR. NO FURTHER NEEDS. CALL LIGHT IN REACH.
--- NOTE | 2020-03-23 03:44 | NUR ---
CALL LIGHT ANSWERED. SBA TO THE BATHROOM AND BACK TO BED. NO OTHER NEEDS AT THIS TIME.
--- NOTE | 2020-03-23 06:00 | NUR ---
CALL LIGHT ANSWERED. PT REQUESTING MEDS FOR PAIN. PRN ADMINISTERED PER EMAR.
--- NOTE | 2020-03-23 06:18 | NUR ---
SBA TO THE BATHROOM. PATIENT IS BACK IN BED. WARM BLANKET PROVIDED.
--- NOTE | 2020-03-23 06:42 | NUR ---
CALL LIGHT ANSWERED. PT C/O "DRY" THROAT WHICH HE REPORTS IS CHRONIC. HARD CANDY PROVIDED. PT REPORTS HE HAS LOZENGES AT HOME THAT HIS WILL BRING IN LATER.
--- NOTE | 2020-03-23 07:35 | NUR ---
Patient a&ox4, respirations even and non labored. Skin grafting noted to left side of head where ear was removed. No notable drainage at this time. Per report, drainage has decreased. Incision borders to skin grafting on left side of head are closed; swelling noted under skin grafting. Patient's airway is patent. Patient denies sob. No needs at this time.
--- NOTE | 2020-03-23 08:00 | NUR ---
CALL LIGHT ANSWERED. PATIENT SITTING UP IN CHAIR. DENTURES CARE DONE. CALL LIGHT WITHIN REACH. NO OTHER NEEDS AT THIS TIME
--- NOTE | 2020-03-23 08:58 | NUR ---
Oxycodone 10mg po admin for reports of 7/10 head and right shoulder pain.
--- NOTE | 2020-03-23 11:01 | NUR ---
CALL LIGHT ANSWERED. PATIENT SITTING UP IN BED. PATIENT ASSISTED TO USE THE BATHROOM. PATIENT BACKS TO BED. CALL LIGHT WITHIN REACH. NO OTHER NEEDS AT THIS TIME
--- NOTE | 2020-03-23 11:50 | NUR ---
Spoke with Catracho who is well known to this RN. L side of face is very red and swollen. Wants to go home, but states he cannot with this new issue. Plans on dc to home when he is feeling better. will assist him and he has a walker and a wc. He denies other needs at this time. DC is pending at this time due to his infection and fevers.
--- NOTE | 2020-03-23 12:21 | NUR ---
Patient sitting up in bed, a&ox4. Pt appears anxious; pt verbalized he was worried about his not coming to see him. Discussed plan of care with patient. Patient verbalized he will try to get a bit more rest for now. Left lower face/neck is swollen and firm/warm to touch. Patient denies sob at this time. Small purulent drainage noted. Airway patent.
--- NOTE | 2020-03-23 13:14 | NUR ---
PATIENT IN BED RESTING. PATIENT WANTS TO WAIT FOR TO GET HERE BEFORE SHOWERING IF HE FEELS LIKE HE IS UP TO IT. FRESH WATER GIVEN. CALL LIGHT IN REACH. NO FURTHER NEEDS AT THIS TIME.
--- NOTE | 2020-03-23 13:37 | NUR ---
PT RECLINGING IN BED, BLINDS CLOSED AND TV OFF. PT MENTIONED HE DIDN'T SLEEP WELL LAST NIGHT. ENCOURAGED HIM TO REST NOW, GAVE BLESSING, PT THANKED ME. WILL FOLLOW NEEDED
--- NOTE | 2020-03-23 15:15 | NUR ---
Tylenol 500mg po admin for reports of 7/10 head pain.
--- NOTE | 2020-03-23 16:48 | EKG ---
[facility] [address] [place] [address] Signed Sinus tachycardia Nonspecific ST abnormality Abnormal ECG When compared with ECG of 07-MAR-2020 20:03, Vent. rate has increased BY [address] now depressed in Anterior leads Confirmed by SUREKHA ESPARZA MD ([id number]) on 03/23/2020 4:48:47 PM Electronically Signed By: SUREKHA ESPARZA MD 03/23/20 1648 PATIENT NAME: NOLA VELASCO Electrocardiogram DATE OF : 47 PHYSICIAN: SUREKHA ESPARZA MD REPORT #: [id number] REPORT IS CONFIDENTIAL AND NOT TO BE RELEASED WITHOUT AUTHORIZATION
--- NOTE | 2020-03-23 17:33 | NUR ---
Patient assisted to shower. to assist patient with shower. Shower set up with chair. No needs at this time.
--- NOTE | 2020-03-23 17:59 | NUR ---
PATIENT RESTING IN BED. IN ROOM. VITAL SIGNS AND I&O DONE. CALL LIGHT WITHIN REACH. NO OTHER NEEDS AT THIS TIME
--- NOTE | 2020-03-23 18:59 | NUR ---
Oxycodone 10mg po admin for reports of 7/10 head pain.
--- NOTE | 2020-03-23 19:05 | NUR ---
PT LYING IN BED. SHIFT REPORT RECIEVED BY RN. GRAFT ON FACIAL LEFT SIDE INTACT WITH SOME PURELENT DRAINAGE NOTED. IN ROOM. WHITE BOARD CLEARED. CALL LIGHT IN REACH.
--- NOTE | 2020-03-23 21:06 | NUR ---
PT LYING IN BED. SCHEDULED MEDS GIVEN. PT C/O PAIN 08/23. PRN TYLENOL GIVEN PER REQUEST. GRAFT ON LEFT SIDE OF HEAD INTACT WITH SOME YELLOW PURELENT DRAINAGE. STANDBY ASSIST/ FWW. PT REPOSITIONED IN BED. I AND O'S COMPLETE. CALL LIGHT IN REACH. NO FURTHER CONCERNS.
--- NOTE | 2020-03-23 23:02 | NUR ---
PT LYING IN BED. READING MAGAZINES. GRAFT ON LEFT SIDE OF HEAD INTACT. NO CHANGES AT THIS TIME. NO S/S OF SOB. CALL LIGHT IN REACH.
--- NOTE | 2020-03-24 00:05 | NUR ---
CALL LIGHT ANSWERED. PT UP TO TOILET WITH SBA FWW TO VOID. PT RETURNED TO BED, DENIES FURTHER NEEDS AT THIS TIME. CALL LIGHT AND BEDSIDE TABLE WITHIN REACH.
--- NOTE | 2020-03-24 01:06 | NUR ---
PT LYING IN BED. NO CHANGES NOTED ON L GRAFT ON SIDE OF HEAD. RR WNL WITH UNLABORED BREATHING. CALL LIGHT IN REACH.
--- NOTE | 2020-03-24 01:46 | NUR ---
PT LYING IN BED. EYES CLOSED. RR WNL WITH UNLABORED BREATHING. NO CHANGES ON GRAFT ON LEFT SIDE OF HEAD. CALL LIGHT IN REACH.
--- NOTE | 2020-03-24 03:32 | NUR ---
BED ALARM RINGING; PT SITTING AT BEDSIDE REPORTING HE MUST USE THE TOILET. SBA FWW TO TOILET. PT RETURNED TO BED WITH BED ALARMS BACK ON. CALL LIGHT AND BEDSIDE TABLE WITHIN REACH
--- NOTE | 2020-03-24 04:14 | NUR ---
PT LYING IN BED. EYES CLOSED. RR WNL WITH UNLABORED BREATHING. CALL LIGHT IN REACH.
--- NOTE | 2020-03-24 08:05 | NUR ---
PATIENT RESTING IN BED. WHITE BOARD UPDATED. CALL LIGHT WITHIN REACH. NO OTHER NEEDS AT THIS TIME
--- NOTE | 2020-03-24 08:06 | NUR ---
Tylenol 500mg po admin for reports of 6/10 head pain.
--- NOTE | 2020-03-24 09:14 | NUR ---
PATIENT RESTING IN BED. VITAL SIGNS AND I&O DONE. CALL LIGHT WITHIN REACH. NO OTHER NEEDS AT THIS TIME
--- NOTE | 2020-03-24 09:52 | NUR ---
PATIENT RESTING IN BED. PATIENT REFUSED TO TAKE A SHOWER TODAY BECAUSE HE TOOK A SHOWER YESTERDAY. CALL LIGHT WITHIN REACH. NO OTHER NEEDS AT THIS TIME
--- NOTE | 2020-03-24 10:00 | NUR ---
No change in plan for dc at this time.
--- NOTE | 2020-03-24 10:28 | NUR ---
Patient resting in bed, hob elevated. Patient denies sob, respirations even and non labored. Left neck and inferior portion of graft remain swollen, firm to touch with scant yellow drainage noted. Airway patent and vital signs stable. Patient denies needs at this time. Call light within reach.
--- NOTE | 2020-03-24 12:24 | NUR ---
Cleansed left face wound with hydrogen peroxide/saline 1:1 mix. Scant amount of thick yellow drainage noted to lower graft incision borders. Patient tolerated well.
--- NOTE | 2020-03-24 12:53 | NUR ---
Patient ambulated in hallway with this RN. Tolerated well with SBA using FWW.
--- NOTE | 2020-03-24 13:50 | NUR ---
PT IN BED. PT IS SOMNOLENT, HIS LUNCH IS STILL AT BEDSIDE TABLE. VITAL SIGNS AND I&O DONE. CALL LIGHT WITHIN REACH. NO OTHER NEEDS AT THIS TIME
--- NOTE | 2020-03-24 14:03 | NUR ---
PT SLEEPING, DID NOT DISTURB. WILL RETURN
--- NOTE | 2020-03-24 15:18 | NUR ---
Tylenol 500mg po admin for 5/10 head pain.
--- NOTE | 2020-03-24 15:24 | NUR ---
STOPPED IN TO SEE HOW PATIENT IS DOING EATING. HE SAID HE CAN CHEW FINE BUT HIS BIGGEST ISSUE IS NOT BEING ABLE TO OPEN HIS MOUTH WIDE ENOUGH. HE IS DOING WELL WITH CHOOSING FOODS HERE, BUT WASN'T ABLE TO SQUISH THE HAMBURGER DOWN ENOUGH TO EAT IT FOR LUNCH. HERE NOW AND BROUGHT HIM A SUGAR-FREE MOCHA. PATIENT STILL THINKING ABOUT WHAT HE WANTS FOR DINNER. HE IS ON A 60 GM CARB DIET HERE. HE STATES THERE IS NO OTHER ISSUES I CAN HELP HIM WITH RIGHT NOW. HE HAS AN ENSURE HIGH PROTEIN AT HIS BEDSIDE. HE WAS DRINKING UP TO 3 BOTTLES AT HOME AFTER SURGERY. CONTINUE 60 GM CARB DIET. WILL CONTINUE TO MONITOR.
--- NOTE | 2020-03-24 16:30 | NUR ---
Patient in bed resting, respirations even and non labored. at bedside. No needs. Personal supplies and call light within reach.
--- NOTE | 2020-03-24 17:16 | NUR ---
PATIENT RESTING IN BED. IN ROOM. VITAL SIGNS AND I&O DONE. PATIENT'S DINNER ORDERED. CALL LIGHT WITHIN REACH. NO OTHER NEEDS AT THIS TIME
--- NOTE | 2020-03-24 18:58 | NUR ---
Oxycodone 5mg po admin for 6/10 head pain.
--- NOTE | 2020-03-24 19:05 | NUR ---
REPORT RECEIVED FROM BARB BROOKS, PT RESTING IN BED, AWAKE AND COMFORTABLE AT THIS TIME. AT BEDSIDE, ENGAGED IN CARE. REPOSITIONED IN BED. NO OTHER NEEDS AT THIS TIME, WILL CONT TO MONITOR.
--- NOTE | 2020-03-24 20:05 | NUR ---
CALL LIGHT ANSWERED, PT UP TO BR TO VOID WITH FWW. DENTURE CARE COMPLETE. AT BEDSIDE TO APPLY EYE OINTMENT. BACK TO BED, REPOSITIONED WITH PILLOWS. MADE PLAN WITH PT FOR MEDS, BEDTIME. CALL LIGHT IN REACH.
--- NOTE | 2020-03-24 21:05 | NUR ---
MEDICATIONS ADMINISTERED, IVF INFUSING WNL. VITALS AND I/OS, ASSESSMENT COMPLETE. PT REPOSITIONED IN BED WITH PILLOWS. PEROXIDE/SALINE SOLUTION USED TO CLEANSE GRAFT SITE, DRY GAUZE APPLIED. IV IN R HAND DC'D PATIENT STATES IRRITATED, USING L AC TO INFUSE ABX. PT STATES NO OTHER NEEDS AT THIS TIME, CALL LIGHT IN REACH.
--- NOTE | 2020-03-24 22:16 | NUR ---
IN PT RM TO PROVIDE PILLOW SUPPORT ON PT'S BACK FOR SIDE SLEEPING, NO FURTHER NEEDS AT THIS TIME
--- NOTE | 2020-03-24 23:54 | NUR ---
PT CALLED, UP TO VOID, NOW BACK IN BED, NO FURHTER NEEDS AT THIS TIME
--- NOTE | 2020-03-25 00:49 | NUR ---
CHECKED IN ON PATIENT, RESTING IN BED WITH EYES CLOSED, RR EVEN, NO APPARENT NEEDS. CALL LIGHT IN REACH, WILL CONTINUE TO MONITOR.
--- NOTE | 2020-03-25 02:21 | NUR ---
ROUNDED ON PATIENT, IN BED WITH EYES CLOSED. DID NOT DISTURB AT THIS TIME. NO APPARENT NEEDS, CALL LIGHT IN REACH, WILL CONT TO MONITOR
--- NOTE | 2020-03-25 03:40 | NUR ---
ROUNDED ON PATIENT, IN BED WITH LIGHTS OFF, EYES CLOSED. RR EVEN AND UNLABORED. CALL LIGHT IN REACH, NO APPARENT NEEDS.
--- NOTE | 2020-03-25 04:42 | NUR ---
CALL LIGHT ANSWERED, PT UP TO BR TO VOID WITH FWW. REQUESTS PRN PAIN MEDICATION FOR 7/10 PAIN. BACK TO BED, REPOSITIONED IN BED. ASSESSMENT COMPLETE. NO OTHER NEEDS AT THIS TIME.
--- NOTE | 2020-03-25 06:00 | NUR ---
SCHEDULED MEDICATIONS ADMINISTERED, PRN TYLENOL GIVEN FOR 8/10 SHOULDER PAIN. NO OTHER NEEDS AT THIS TIME.
--- NOTE | 2020-03-25 07:31 | NUR ---
0715: Report received from Criss BROOKS. Pt resting in his bed and states that is pain level is "okay" at this time and he denies any needs. Call llanes within reach.
--- NOTE | 2020-03-25 08:12 | NUR ---
PT RESTING IN HIS BED AND STATES THAT HIS PAIN IS A 6 WHICH IS CONTROLED FOR HIM. LEFT HEAD INCISION SITE NOTED TO HAVE A SMALL AMOUNT OF YELLOW DRAINAGE AND HE STATES HE IS UNSURE IF IT IS CHANGING. SWELLING IS NOTED AT THE LOWER EDGE OF THE INCISION BY HIS NECK. PT DENIES ANY SOB OR TROUBLE SWALLOWING AND HE STATES THAT THE SWELLING IS "DOWN SOME", WILL CONTINUE TO MONITOR. SEE ASSESSMENT.
--- NOTE | 2020-03-25 10:30 | NUR ---
PT RECENTLY COMPLETED HIS PHYSICAL THERAPY AND IS NOW SITTING IN HIS CHAIR. HE STATES HIS BILAT KNEE PAIN IS AN 8/10 AND WAS MEDICATED ORDERED, SEE EMAR. CALL EDWARD WITHIN REACH.
--- NOTE | 2020-03-25 10:40 | NUR ---
Pt resting, denies co.
--- NOTE | 2020-03-25 10:42 | NUR ---
Left lateral neck incision site cleaned with 1:1 hydrogen peroxide and saline, patted dry and covered with dry gauze and held in place with medipore tape. Pt tolerated well. The lower end posterior edge of the incision is producing a scant amount of yellow drainage which was cleaned up and this is the area that was covered with the dressing.
--- NOTE | 2020-03-25 12:58 | NUR ---
PT EATING LUNCH AT THIS TIME. HE CONTINUES TO DENY ANY SOB OR TROUBLE SWALLOWING. DRESSING REMAINS INTACT AND NO NOTED CHANGE IN THE SWELLING ON THE LEFT NECK/FACE AREA. PT STATES HIS CHRONIC KNEE PAIN IS WORSE THAN HIS SURGICAL SITE PAIN AND IT IS UNDER GOOD CONTROL FOR HIM AT THIS TIME. SEE ASSESSMENT FOR A FULL UPDATE. CALL LEON REMAIN WITHIN REACH.
--- NOTE | 2020-03-25 14:24 | NUR ---
Pt was asked about his pain and he states, "I'm okay".
--- NOTE | 2020-03-25 16:05 | NUR ---
PT STATES HE IS HAVING NECK PAIN AT AN 8/10 AND HE REQUESTED SOME TYLENOL AND WAS GIVEN A DOSE PER HIS REQUEST. PT NOW RESTING IN HIS BED VISITING WITH IS AT THIS TIME. PT ENCOURAGED TO CALL IF HIS PAIN DOES NOT IMPROVE.
--- NOTE | 2020-03-25 17:58 | NUR ---
Drainage from the left neck/jaw wound drainage sent to the lab for cultures as ordered.
--- NOTE | 2020-03-25 18:31 | NUR ---
Pt showered and the dressing was replaced as ordered. Pt states his pain level is a 6 at this time, see emar.
--- NOTE | 2020-03-25 19:15 | NUR ---
SHIFT REPORT RECEIVED FROM DAYSMIDEANDRA LYONS AT BEDSIDE. PT RESTING IN BED, DRESSING TO LEFT NECK IN PLACE. SCANT YELLOW DRAINAGE NOTED. PT DENIES NEEDS OR CONCERNS. CALL LIGHT IN REACH. IN ROOM.
--- NOTE | 2020-03-25 21:41 | NUR ---
IN RM TO GET VITALS, TEMP IS HIGHER, WILL TELL RN, FRESH ICE WATER GIVEN, NO FURHTER NEEDS AT THIS TIME
--- NOTE | 2020-03-25 22:00 | NUR ---
ASSESSMENT COMPLETE, SCHEULED MEDS GIVEN (SEE EMAR). PRN PAIN MEDICATION ALSO GIVEN. IV VANCO INFUSING PER MD ORDERS, SITE FLUSHES EASILY. NO SIGNS OF INFILTRATION. SCANT REDDNESS NOTED PRIOR TO INFUSION ABOVE IV SITE AND ON ARM, SKIN ROUGH TO THE TOUCH AND PARTIALLY SCALY. WILL MONITOR. EYE LUBRICATION GIVEN IN LEFT EYE. PAPER TAPE ASSITED TO KEEP EYE CLOSED. DRESSING TO LEFT NECK IN PLACE, MINIMAL DRAINAGE NOTED ON GAUZE. WILL MONITOR. NO ADDITIONAL NEEDS. CALL LIGHT IN REACH.
--- NOTE | 2020-03-26 | NUR ---
IN RN, PT UP TO VOID, NO FURHTHER NEEDS AT THIS TIME
--- NOTE | 2020-03-26 00:15 | NUR ---
IV VANCO COMPLETE, NO CHANGES TO IV SITE. FLUSHES EASILY AND NO SWELLING NOTED. SCANT INDURATION NOTED ABOVE IV SITE. PT DENIES PAIN WITH INFUSION. SITE UNCHANGED AFTER 10MLS NS FLUSH. DIRECT SUPPORT STAFF MEMBERCECILIA PENNINGTON IN ROOM TO ALSO ASSESS. WILL MONITOR. PT SALINE LOCKED AT THIS TIME. ABILIO VASQUEZ IN ROOM TO ASSIST PT WITH VOIDING. CALL LIGHT IN REACH.
--- NOTE | 2020-03-26 00:26 | NUR ---
PT'S JASMIN CALLED AND ASKED FOR PT UPDATE. PT UPSET AND REPORTS CONCERN ABOUT DR ESPARZA PRESSING DOWN AT PT'S INCISION SITE BECAUSE PT HAD LYMPH NODES REMOVED DURING PREVIOUS SURGERY. PT'S FEARFUL THAT PT MAY "HEMORRHAGE". PT STATES, "I JUST COULDN'T SLEEP AND WAS SICK TO MY STOMACH OVER THIS. I SHOULDV'E SAID SOMETHING, BUT HE'S A DOCTOR AND THEY KNOW WHAT THEY'RE DOING". THERAPEUTIC COMMUNICATION PROVIDED AND PT'S UPDATED WITH DR ESPARZA'S PROGRESS NOTE. REASSURED PT'S THAT SHE CAN CALL ANYTIME FOR UPDATES AND THAT SHE CAN DISCUSS CONCERNS AND QUESTIONS WITH DR ESPARZA IN THE MORNING.
--- NOTE | 2020-03-26 02:20 | NUR ---
PT UP TO VOID AT THIS TIME, NOW BACK IN BED, NO FURTHER NEEDS AT THIS TIME
--- NOTE | 2020-03-26 02:42 | NUR ---
ROUNDED ON PT. PT AWAKE AND RESTING IN BED, RECENTLY UP TO VOID. DENIES NEEDS OR CONCERNS. CALL LIGHT IN REACH.
--- NOTE | 2020-03-26 05:33 | NUR ---
assessment complete, no new changes or concerns. pt awake and recently returned from voided. pt reports tolerable 5/10 pain, denies need for pain medication. denies nausea. no changes to neck incision, dressing intact. scant yellow drainage noted. will monitor. call light in reach. vs and i&o's stable.
--- NOTE | 2020-03-26 06:45 | NUR ---
IV TO LEFT AC DUE TO BE ROTATED. MULTIPLE ATTEMPTS UNSUCCESSFUL. INTERNET ARCHITECT IN ROOM, SUGGESTED WE LEAVE CURRENT IV IN PLACE SO PT HAS IV ACCESS. PT SALINE LOCKED AT THIS TIME. KNOT BORER MADE AWARE, APPEARS PT IS SCHEDULED TO TRANSITION TO [facility] AND POSSIBLY DISCHARGE.
--- NOTE | 2020-03-26 07:48 | NUR ---
0735: Report recieved from ariane BROOKS. Pt sleeping at this time, call llanes within reach.
--- NOTE | 2020-03-26 08:44 | NUR ---
Right ac iv site leaking. director script attempted a new iv start x3 with no success. Dr Delgado notified and an order to hold the this vanco dose was given.
--- NOTE | 2020-03-26 08:53 | NUR ---
PT RESTING IN HIS BED AND STATES THAT HIS PAIN IS UNDER GOOD CONTROL. THE SWELLING ON THE LEFT FACE/NECK IS NOTED TO BE LESS THAN IT WAS YESTERDAY AND THE DRESSING IS DRY AND INTACT. VSS, SEE ASSESSMENT FOR A FULL UPDATE.
[2020-03-26] MEDS ORDERED: DOXYCYCLINE HY100 MG PO (10:18)
--- NOTE | 2020-03-26 10:29 | NUR ---
Pt being dc'd today and he states his will be here around 1200 to pick him up. Pt denies any other problems at this time.
--- NOTE | 2020-03-26 12:12 | NUR ---
PT ASLEEP, VERY SHALLOW BREATHING. RN SERENA IN TO CHECK ON PT. GAVE BLESSING, WILL FOLLOW
--- NOTE | 2020-03-26 13:45 | NUR ---
Called and spoke with Lara, as I missed her when she came to pick [facility]. She states they are going through a drive through and will call me back. She states she does need some help with some issues.
--- NOTE | 2020-03-26 15:18 | NUR ---
DC summary faxed to [facility]. They will not accept referral with electronic signature. NOtified Dr. Delgado has left and they will need to get orders from Dr. Velazquez to resume HH of they cannot accept electronic signature on his order.
--- NOTE | 2020-03-26 16:53 | NUR ---
Lengthy visit with [facility] . She is concerned about issues which will arise with pt's cancer diagnosis. Gave her phone numbers and web sites for cg, transportation, and resources.
== END 2020-03-26 12:50 | disposition home health service (06) | DRG 862 ==
LOC: ED 20:57 → MS 20:58
PROVIDERS: ADMIT Internal Medicine; ATTEND Internal Medicine
DX: T81.49XA Infection following a procedure, other surgical site, initial encounter (principal); A41.01 Sepsis due to Methicillin susceptible Staphylococcus aureus; G93.41 Metabolic encephalopathy; L03.211 Cellulitis of face; L03.221 Cellulitis of neck; C77.0 Secondary and unspecified malignant neoplasm of lymph nodes of head, face and neck; C79.89 Secondary malignant neoplasm of other specified sites; T81.44XA Sepsis following a procedure, initial encounter; Z20.828 Contact with and (suspected) exposure to other viral communicable diseases; C44.329 Squamous cell carcinoma of skin of other parts of face; I48.0 Paroxysmal atrial fibrillation; I10 Essential (primary) hypertension; I25.10 Atherosclerotic heart disease of native coronary artery without angina pectoris; G47.33 Obstructive sleep apnea (adult) (pediatric); N40.0 Benign prostatic hyperplasia without lower urinary tract symptoms; E11.9 Type 2 diabetes mellitus without complications; E78.5 Hyperlipidemia, unspecified; E03.9 Hypothyroidism, unspecified; G89.4 Chronic pain syndrome; Z98.61 Coronary angioplasty status; Z86.718 Personal history of other venous thrombosis and embolism; Z88.5 Allergy status to narcotic agent; Z88.8 Allergy status to other drugs, medicaments and biological substances; Z88.0 Allergy status to penicillin; Z79.01 Long term (current) use of anticoagulants; Z79.82 Long term (current) use of aspirin; Z79.891 Long term (current) use of opiate analgesic; Z79.899 Other long term (current) drug therapy
CPT/HCPCS: 36415; 70490; 71045; 80048; 80053; 80202; 81001; 83605; 85025; 87040; 87070; 87075; 87077; 87186; 87205; 87502; 93005; 93010; 96365; 96366; 97110; 97116; 97162; 97165; 97535; 99285-25; C9803; J3370; J7030; J7060; J7121; Q9967; U0003

== ENCOUNTER 2020-04-05 11:44 | Emergency (ER) | payer MEDICARE ==
[~2020-04-05] VITALS: Ht 175.3 cm; Wt 108.9 kg
[~2020-04-05 11:44] MED LIST changes: +DEXAMETHASONE4 MG PO; +DOXYCYCLINE HY100 MG PO; +ONDANSETRON ODT8 MG PO
--- OUTSIDE RECORDS SUMMARY | 2020-04-05 11:46 | XMS ---
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 Care History Medical/Surgical 03/08/2020 [facility] - Patient is currently established with [facility]. If patient is seen in the ED during business hours. Please contact CHWs at [facility]. Care Recommendation: If this patient has had 5 or more Emergency Department visits in the last 12 months.\T\nbsp; Patient will require education on the scope and purpose of the ED as an acute care provider not a Primary Care Provider and should not be utilized for chronic conditions.\T\nbsp; These are guidelines and the provider should exercise clinical judgment when providing care. 02/24/2019 [facility] Patient has appt with PCP 02/25/2019 @ 11:40am. [facility] VISIT COUNT (12 MO.) [address] [facility] TOTAL 3 NOTE: Visits indicate total known visits. ED/UCC VISIT TRACKING (12 MO.) 04/05/2020 11:45 [facility] TYPE: Emergency COMPLAINT: - FALL 03/21/2020 20:57 [facility] TYPE: Emergency COMPLAINT: - WEAKNESS 03/07/2020 19:07 [facility] TYPE: Emergency COMPLAINT: - WEAKNESS INPATIENT VISIT TRACKING (12 MO.) 03/22/2020 09:12 [facility] [place] TYPE: Medical Surgical COMPLAINT: - POST OP WOUND INFECTION DIAGNOSES: - Paroxysmal atrial fibrillation - Metabolic encephalopathy - Atherosclerotic heart disease of [place] coronary artery without angina pectoris - Coronary angioplasty status - Contact with and (suspected) exposure to other viral communicable diseases - terminal manager (current) use of opiate analgesic - snf (current) use of anticoagulants - Obstructive sleep apnea (adult) (pediatric) - Sepsis due to Methicillin susceptible Staphylococcus aureus - Sepsis, unspecified organism - Other retirement (current) drug therapy - Other retirement (current) drug therapy - Essential (primary) hypertension - Personal history of other venous thrombosis and embolism - Allergy status to narcotic agent - Atherosclerotic heart disease of [place] coronary artery without angina pectoris - Secondary malignant neoplasm of other specified sites - Allergy status to penicillin - Sepsis following a procedure, initial encounter - Cellulitis of face - Cellulitis of neck - Hyperlipidemia, unspecified - Chronic pain syndrome - Benign prostatic hyperplasia without lower urinary tract symptoms - Type 2 diabetes mellitus without complications - Hyperlipidemia, unspecified - Paroxysmal atrial fibrillation - snf (current) use of aspirin - Coronary angioplasty status - Secondary and unspecified malignant neoplasm of lymph nodes of head, face and neck - snf (current) use of aspirin - snf (current) use of opiate analgesic - Infection following a procedure, other surgical site, initial encounter - Hypothyroidism, unspecified - Allergy status to narcotic agent - Benign prostatic hyperplasia without lower urinary tract symptoms - Secondary and unspecified malignant neoplasm of lymph nodes of head, face and neck - snf (current) use of anticoagulants - Allergy status to other drugs, medicaments and biological substances - Hypothyroidism, unspecified - Type 2 diabetes mellitus without complications - Sepsis due to Methicillin susceptible Staphylococcus aureus - Cellulitis of face - Chronic pain syndrome - Metabolic encephalopathy - Obstructive sleep apnea (adult) (pediatric) - Allergy status to penicillin - Allergy status to other drugs, medicaments and biological substances - Personal history of other venous thrombosis and embolism - Essential (primary) hypertension - Squamous cell carcinoma of skin of other parts of face - Contact with and (suspected) exposure to other viral communicable diseases - Squamous cell carcinoma of skin of other parts of face - Infection following a procedure, other surgical site, initial encounter - Cellulitis of neck - Secondary malignant neoplasm of other specified sites - Sepsis following a procedure, initial encounter 03/08/2020 04:[address] [facility] [place] TYPE: Critical Care COMPLAINT: - ACUTE [...] hyperplasia without lower urinary tract symptoms - terminal manager (current) use of opiate analgesic - Coronary angioplasty status - snf (current) use of anticoagulants - Hypothyroidism, unspecified - Contact with and (suspected) exposure to other viral communicable diseases - Hyperlipidemia, unspecified - Secondary malignant neoplasm of other specified sites - Paroxysmal atrial fibrillation - Other termite treater (current) drug therapy - Metabolic encephalopathy - Neoplasm related pain (acute) (chronic) - Dehydration - Acute kidney failure, unspecified - Atherosclerotic heart disease of [place] coronary artery without angina pectoris - Type 2 diabetes mellitus without complications - Allergy status to narcotic agent - Essential (primary) hypertension - Mild cognitive impairment, so stated - Allergy status to penicillin - terminal manager (current) use of aspirin - Obstructive sleep apnea (adult) (pediatric) 02/25/2020 05:18 [facility] TYPE: Surgery DIAGNOSES: - Dependence on respirator [...] Morbid (severe) obesity due to excess calories [email or web address]
--- NOTE | 2020-04-05 12:44 | EKG ---
[facility] [address] [place] [address] Signed Normal sinus rhythm Normal ECG When compared with ECG of 21-MAR-2020 21:03, Vent. rate has decreased BY 43 BPM Confirmed by PENELOPE MOONEY MD ([id number]) on 04/05/2020 12:44:07 PM Electronically Signed By: PENELOPE MOONEY MD 04/05/20 1244 PATIENT NAME: VELASCONOLA HERMELINDO Electrocardiogram DATE OF : 47 PHYSICIAN: PENELOPE MOONEY MD REPORT #: [id number] REPORT IS CONFIDENTIAL AND NOT TO BE RELEASED WITHOUT AUTHORIZATION
== END 2020-04-05 15:48 | disposition home or self-care (01) ==
LOC: ED 11:44
DX: S22.32XA Fracture of one rib, left side, initial encounter for closed fracture (principal); W18.30XA Fall on same level, unspecified, initial encounter; E11.9 Type 2 diabetes mellitus without complications; E78.00 Pure hypercholesterolemia, unspecified; I10 Essential (primary) hypertension; E03.9 Hypothyroidism, unspecified; G47.30 Sleep apnea, unspecified; Z87.891 Personal history of nicotine dependence; Z88.0 Allergy status to penicillin; Z88.5 Allergy status to narcotic agent; Z88.8 Allergy status to other drugs, medicaments and biological substances; Z88.1 Allergy status to other antibiotic agents; Z79.899 Other long term (current) drug therapy; Z79.82 Long term (current) use of aspirin
CPT/HCPCS: 70450; 71101; 80053; 83615; 83735; 84484; 85025; 93005; 93010; 99284-25

== ENCOUNTER 2020-04-18 22:19 | Observation (INO) | payer MEDICARE, OTHER ==
[~2020-04-18] VITALS: Ht 175.3 cm; Wt 104.8 kg
--- OUTSIDE RECORDS SUMMARY | 2020-04-18 22:22 | XMS ---
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 Care History Medical/Surgical 03/08/2020 [facility] - Patient is currently established with [facility]. If patient is seen in the ED during business hours. Please contact CHWs at [facility]. Care Recommendation: If this patient has had 5 or more Emergency Department visits in the last 12 months.\T\nbsp; Patient will require education on the scope and purpose of the ED as an acute care provider not a Primary Care Provider and should not be utilized for chronic conditions.\T\nbsp; These are guidelines and the provider should exercise clinical judgment when providing care. 02/24/2019 [facility] Patient has appt with PCP 02/25/2019 @ 11:40am. E.D. VISIT COUNT (12 MO.) [address] [facility] TOTAL 4 NOTE: Visits indicate total known visits. ED/UCC VISIT TRACKING (12 MO.) 04/18/2020 22:21 [facility] [place] TYPE: Emergency COMPLAINT: - UNABLE TO HAVE BOWEL MOVEMENT 04/05/2020 11:45 [facility] TYPE: Emergency COMPLAINT: - FALL DIAGNOSES: - Pure hypercholesterolemia, unspecified - Hypothyroidism, unspecified - Allergy status to other antibiotic agents - Fall on same level, unspecified, initial encounter - Allergy status to penicillin - Type 2 diabetes mellitus without complications - Sleep apnea, unspecified - Other paper machine tender (current) drug therapy - Allergy status to other drugs, medicaments and biological substances - Fracture of one rib, left side, initial encounter for closed fracture - Essential (primary) hypertension - long-term (current) use of aspirin - Personal history of nicotine dependence - Allergy status to narcotic agent 03/21/2020 20:57 [facility] TYPE: Emergency COMPLAINT: - WEAKNESS 03/07/2020 19:07 [facility] TYPE: Emergency COMPLAINT: - WEAKNESS INPATIENT VISIT TRACKING (12 MO.) 03/22/2020 09:12 [facility] TYPE: Medical Surgical COMPLAINT: - POST OP WOUND INFECTION DIAGNOSES: - Paroxysmal atrial fibrillation - Metabolic encephalopathy - Atherosclerotic heart disease of [place] coronary artery without angina pectoris - Coronary angioplasty status - Contact with and (suspected) exposure to other viral communicable diseases - cell geneticist (current) use of opiate analgesic - cell geneticist (current) use of anticoagulants - Obstructive sleep apnea (adult) (pediatric) - Sepsis due to Methicillin susceptible Staphylococcus aureus - Sepsis, unspecified organism - Other paper machine tender (current) drug therapy - Other chcf (current) drug therapy - Essential (primary) hypertension - Personal history of other venous thrombosis and embolism - Allergy status to narcotic agent - Atherosclerotic heart disease of [place] coronary artery without angina pectoris - Secondary [...] Hyperlipidemia, unspecified - Paroxysmal atrial fibrillation - long-term (current) use of aspirin - Coronary angioplasty status - Secondary and unspecified malignant neoplasm of lymph nodes of head, face and neck - cell geneticist (current) use of aspirin - cell geneticist (current) use of opiate analgesic - Infection following a procedure, other surgical site, initial encounter - Hypothyroidism, unspecified - Allergy status to narcotic agent - Benign prostatic hyperplasia without lower urinary tract symptoms - Secondary and unspecified malignant neoplasm of lymph nodes of head, face and neck - cell geneticist (current) use of anticoagulants - Allergy status [...] following a procedure, initial encounter 03/08/2020 04:40 [facility] TYPE: Critical [...] hyperplasia without lower urinary tract symptoms - cell geneticist (current) use of opiate analgesic - Coronary angioplasty status - long-term (current) use of anticoagulants - Hypothyroidism, unspecified - Contact with and (suspected) exposure to other viral communicable diseases - Hyperlipidemia, unspecified - Secondary malignant neoplasm of other specified sites - Paroxysmal atrial fibrillation - Other paper machine tender (current) drug therapy - Metabolic encephalopathy - Neoplasm related pain (acute) (chronic) - Dehydration - Acute kidney failure, unspecified - Atherosclerotic heart disease of [place] coronary artery without angina pectoris - Type 2 diabetes mellitus without complications - Allergy status to narcotic agent - Essential (primary) hypertension - Mild cognitive impairment, so stated - Allergy status to penicillin - cell geneticist (current) use of aspirin - Obstructive sleep [...] Morbid (severe) obesity due to excess calories [email or web address]
--- NOTE | 2020-04-19 03:47 | NUR ---
BEDSIDE REPORT RECEIVED FROM ED RN. PT TRANSPORTED BY ANATOLY TO ROOM 125. PT ALERT AND ORIENTED. ABLE TO TRANSFER SELF TO BED. VS WNL. TELE # 7 PLACED PER ORDER. IVF INFUSING. PT DENIES NAUSEA. REPORTS PAIN IS TOLERABLE AT THIS TIME. PT ORIENTED TO ROOM AND NURSE CALL LIGHT. NO QUESTIONS OR CONCERNS. CALL LIGHT IN REACH.
--- NOTE | 2020-04-19 05:02 | NUR ---
PT LYING IN BED. PT C/O PAIN 8/10 ON L RIBS. PRN PAIN MEDS GIVEN PER REQUEST. CALL LIGHT IN REACH. NO FURTHER NEEDS.
--- NOTE | 2020-04-19 07:15 | NUR ---
REPORT RECIEVED FROM CECILIA COLE. PT APPEARS TO BE SLEEPING. EYES CLOSED RR EVEN AND UNLABORED 14
--- NOTE | 2020-04-19 09:00 | NUR ---
PT REMAINS LAYING IN BED. RR LOW AND EVEN 16. EYES CLOSED.
--- NOTE | 2020-04-19 09:46 | NUR ---
PATIENT IN BED RESTING. WARM WASHCLOTH GIVEN. CALL LIGHT IN REACH. NO FURTHER NEEDS AT THIS TIME.
--- NOTE | 2020-04-19 10:01 | NUR ---
LAB IN ROOM DRAWING. PT LAYING IN BED, STATES HE COULD USE SOMETHING FOR PAIN. TOLD DR MOONEY.
--- NOTE | 2020-04-19 10:40 | NUR ---
FLUSHED G TUBE ORDERED. PT TOLERATED WELL. STATES HE HASN'T USED IT AND NO ONE GAVE THEM ANY INSTRUCTIONS AFTER SURGERY. STATES HOME HEALTH WAS SUPPOSED TO GET [facility] OF THEM. STATES HE HAS BEEN CLEANING HIS FACE WITH HYDROGEN PEROXIDE AT HOME.
[2020-04-19] MEDS ORDERED: LORAZEPAM1 MG PO (10:43)
--- NOTE | 2020-04-19 11:33 | NUR ---
SPOKE WITH ERIKA AT [facility] TO UPDATE THEM THAT PATIENT IS IN HOSPITAL. SHE STATES HE IS ONLY SEEING PHYSICAL THERAPY THROUGH THEM. DISCUSSED HE WILL NEED RN FOR G-TUBE CARE AND TEACHING. SHE STATES TO JUST SEND ORDER AT DISCHARGE AND THEY WILL UPDATE HIS PLAN.
--- NOTE | 2020-04-19 11:54 | NUR ---
ADMINISTERED MEDICATION IN [place]. PT TOLERATED WELL. EDUCATED ON SIDE EFFECTS AND TO CALL IF HE NEEDS ANYTHING. LUNCH ON BEDSIDE TABLE.
--- NOTE | 2020-04-19 12:32 | NUR ---
MED REC COMPLETE
--- NOTE | 2020-04-19 13:00 | NUR ---
PT IN BED SLEEPING. CALL LIGHT IN REACH.
--- NOTE | 2020-04-19 14:15 | NUR ---
PATIENT IN BED RESTING WITH EYES CLOSED. NO VOID AT THIS TIME, WILL CHECK BACK IN A LITTLE WHILE. CALL LIGHT IN REACH. NO FURTHER NEEDS AT THIS TIME.
--- NOTE | 2020-04-19 17:15 | NUR ---
ADMINISTERED TAP WATER ENEMA. PT WAS ABLE TO HOLD FOR QUITE SOME TIME AND THEN HAD A LARGE LOOSE BM. STATES HE FEELS MUCH BETTER AND DOESNT FEEL THE PRESSURE IN THE ABDOMEN. NOW IN ROOM.
--- NOTE | 2020-04-19 17:16 | NUR ---
SPOKE WITH AND PATIENT IN ROOM. PATIENT ORIENTED AND ABLE TO ANSWER QUESTIONS. THEY FEEL THEY HAVE ALL THINGS IN PLACE FOR DISCHARGE HOME. ONLY NEW THING THEY ARE WORRIED ABOUT IS THE G-TUBE. WE DISCUSSED THAT WE CAN ADD NURSING TO HOME HEALTH RESUMPTION ORDER FOR EDUCATION AND SUPPORT OF TUBE. THEY ARE AGREEABLE TO THIS. QUESTIONS ANSWERED. CM WILL CONTINUE TO FOLLOW.
--- NOTE | 2020-04-19 18:29 | NUR ---
SPOKE WITH PT AND HIS . HE FEELS COMPLETLY CLEANED OUT AND HOPES TO GO HOME TOMORROW. TALKED ABOUT A BOWEL ROUTINE AT DISCHARGE TO PREVENT FUTURE EPISODES.
--- NOTE | 2020-04-19 19:00 | NUR ---
BEDSIDE REPORT RECEIVED FROM OFFGOING RNSTANISLAV.
--- NOTE | 2020-04-19 19:50 | NUR ---
SBA TO THE BATHROOM AND BACK TO BED. NO OTHER NEEDS AT THIS TIME. IS IN THE ROOM. PICKED UP DINNER TRAYS AND PUT AWAY.
--- NOTE | 2020-04-19 21:00 | NUR ---
PT ASSESSMENT COMPLETE. PT DENIES PAIN, NAUSEA, OR SOB. PT TYPICALLY USES HOME CPAP, PT'S BROUGHT IN FOR HIM TO USE. PT NOTIFIED OF REQUIREMENT TO MOVE HIM TO A NEGATIVE PRESSURE ROOM AND HAVE RT DOUBLE CHECK THE CPAP . PT STATES "THAT'S TOO MUCH WORK", STATES THAT HE DOES NOT WANT TO WEAR HIS CPAP. INFORMED PT THAT IT WOULD NOT BE A PROBLEM. WE COULD MOVE HIM TO ANOTHER ROOM EASILY. PT DECLINES, STATES "IT WILL BE OK. I WENT WITHOUT MY CPAP WHEN I HAD SURGERY FOR MY FLAP." OFFERED PT O2 WHILE HE SLEEPS INSTEAD, HE DECLINES STATES "ONLY IF I TRIGGER THE ALARMS". PT WITH G TUBE, CLAMPED. PT REPORTS TENDERNESS AT GTUBE SITE. DENIES OTHER ABD TENDERNESS. PT'S EYE OINTMENT APPLIED, EYE TAPED SHUT FOR THE NIGHT. SCHEDULED MEDS ADMINISTERED. PT DENIES FURTHER NEEDS AT THIS TIME. AGREES TO USE CALL LIGHT FOR NEEDS.
--- NOTE | 2020-04-19 22:41 | NUR ---
CALL LIGHT ANSWERED. WARM BLANKET PROVIDED. EMPTIED HAT WITH 700ML VOIDINGS. NO OTHER NEEDS AT THIS TIME.
--- NOTE | 2020-04-19 23:51 | NUR ---
PT RESTING IN BED WITH EYES CLOSED. RESPIRATIONS EVEN AND UNLABORED. PT APPEARS TO BE SLEEPING. TATIANA LIGHT IN REACH.
--- NOTE | 2020-04-20 03:40 | NUR ---
PT FOUND SITTING ON TOILET. REMINDED PT THAT HE NEEDS TO USE THE CALL LIGHT FOR ASSISTANCE GETTING UP. PT STATES UNDERSTANDING. PT ASSESSMENT COMPLETE. PT REPOTS PAIN TO L RIBS AND ABD AT PEG TUBE SIDE. PT REQUESTS PRN PAINMED, ADMINISTERED. SEE EMAR. ASSESSMENT UNCHANGED FROM PREVIOUS. PT DENIES FURTHER NEEDS AT THIS TIME. CALL LIGHT IN REACH.
--- NOTE | 2020-04-20 06:32 | NUR ---
SCHEDULED MEDS ADMINISTERED. PT REPORTS THAT PRN PAIN MEDCIATION HELPED BRING PAIN TO TOLERABLE LEVEL, 4/10. PEG TUBE FLUSHED ORDERED. PT TOLERATED WELL. PT STATES HOME HEALTH WILL BE COMING TO HIS HOUSE TO TEACH HIM HOW TO USE THE PEG TUBE. PT DENIES FURTHER NEEDS AT THIS TIME. CALL LIGHT IN REACH.
--- NOTE | 2020-04-20 07:29 | NUR ---
BEDSIDE REPORT FROM STEFFANY BROOKS RN QUALITY, PT RESTING IN BED ALERT AND ORINETED. NO DISTRESS NOTED, HE HAD NO REQUESTS AT THIS TIME.
[2020-04-20] MEDS ORDERED: MIRALAX17 GM PO (07:54)
--- NOTE | 2020-04-20 09:39 | NUR ---
PT RESTING IN BED REPORTS PAIN 6/10 OXYCODONE ADMINISTERED PRN, PT DECLINES TO AMBULATE WITH STAFF, NO OTHER REQUESTS OR COMPLAINTS, PT REPORTS HE IS PASSING GAS AT THIS TIME.
--- NOTE | 2020-04-20 11:19 | NUR ---
DISCHARGE PACKET GIVEN, GAUZE CHANGED OUT FROM AROUND G-TUBE. DISCUSSED MEDICATIONS AND DRINKING WATER AND ACTIVITY AT HOME. PT'S SPOUSE SAID THEY ARE IN REGULAR CONTACT WITH [facility] FOR CONTINUED CARE AT HOME. DISCUSSED SIGNS AND SYMPTOMS TO SEEK MEDICAL ATTENTION RIGHT AWAY. MARIA L INTO ROOM TO DO MEDICINE EDUCATION WELL.
--- NOTE | 2020-04-21 15:19 | CONS ---
[facility] [address], [place] [address] Signed DATE OF CONSULTATION: 04/19/2020 REQUESTING PHYSICIAN: Brigid Gray MD PROBLEM: "Stercoral colitis." HISTORY: This 75-year-old morbidly obese white man is suffering from a head and neck cancer and has undergone 10 radiation treatments under the direction of Dr. Sabillon. I was consulted for him to have a PEG gastrostomy feeding tube over a week ago, but due to logistical reasons and his recent hospitalization for an infection of his head and neck problem, the PEG tube was not placed by me. A few days ago, he did undergo placement of the PEG tube in [place] by Dr. Moreno who has since gone on a maternity leave for an unknown amount of time. Apparently, there was no particular instruction regarding the G-tube, its function or arrangement for feeding tube and so on. The patient is on opioid medications and was noted not to have had a bowel movement in several days. He presented to the emergency room last night, where he was evaluated by Dr. Spencer for the constipation. No rectal examination was undertaken in the emergency room based on documentation I have seen. A CT scan, however, was performed, which shows a fair amount of stool in the rectum and a diagnosis of "possible early stercoral colitis." I have reviewed the CT scan and I see no such finding of inflammation at all. There is a fair amount of stool, however. The patient does note that he has not had a bowel movement in several days. Lab studies at admission include a normal white count of 7.8 and hematocrit was 38.5. He is admitted to the hospitalist for this problem and also further consideration of his G-tube. REVIEW OF SYSTEMS: He denies any shortness of breath or chest pain. He is having no upper abdominal pain. He does not have pain at the rectum or low abdomen that he knows of. He does note no bowel movement in a few days. PHYSICAL EXAMINATION: GENERAL: This is an obese white man who looks markedly debilitated compared to the past. He has distortion of his left face and neck related to his head and neck tumor no doubt. Electronically Signed By: NOLA MCGOWAN MD 04/21/20 1519 PATIENT NAME: NOLA VELASCO CONSULTATION DATE OF : 47 REPORT #: [id number] PHYSICIAN: NOLA MCGOWAN MD PCP: OSCAR ANTUNEZ MD REPORT IS CONFIDENTIAL AND NOT TO BE RELEASED WITHOUT AUTHORIZATION [facility] [address], [place] [address] Signed CHEST: Shows normal respiratory excursion. Pulses regular. ABDOMEN: Quite obese, but soft. Examination of the anorectal area shows no sign of inflammation. Digital rectal examination shows soft stool in the rectum. Review of his medication shows he is on Eliquis, apixaban. He has been taking oxycodone on a routine basis. ASSESSMENT: The patient has constipation and a fair amount of stool in the rectum, but no sign of hard rock like mass of the stool in the rectum, which would be requisite for stercoral colitis. Indeed a CT scan does not show perirectal inflammation to my examination at least. He will not require elaborate sedation for fecal disimpaction. I believe the most appropriate approach at this point would be tap water enemas which will help clear the rectum. A bowel regimen since he is on oxycodone for potential basis would be appropriate as well. As regards to his gastrostomy feeding tube, it is recently placed and as long as not dislodged can be used in the near future. Reviewed this with Dr. Gray. Nola Mcgowan MD /ANHL /[id number] cc: Joseph Sabillon MD, PH.D. MD Dr. Isi Forte Copies: JOSEPH SABILLON CYNTHIA MD ~ Electronically Signed By: NOLA MCGOWAN MD 04/21/20 1519 PATIENT NAME: RODNOLA ACSAREZ CONSULTATION DATE OF : 47 REPORT #: [id number] PHYSICIAN: NOLA MCGOWAN MD PCP: OSCAR ANTUNEZ MD REPORT IS CONFIDENTIAL AND NOT TO BE RELEASED WITHOUT AUTHORIZATION
== END 2020-04-20 11:45 | disposition home or self-care (01) ==
LOC: ED 22:19 → MS 22:22
PROVIDERS: ADMIT Internal Medicine; ATTEND Internal Medicine
DX: K52.89 Other specified noninfective gastroenteritis and colitis (principal); C76.0 Malignant neoplasm of head, face and neck; I25.10 Atherosclerotic heart disease of native coronary artery without angina pectoris; E03.9 Hypothyroidism, unspecified; K59.09 Other constipation; I12.9 Hypertensive chronic kidney disease with stage 1 through stage 4 chronic kidney disease, or unspecified chronic kidney disease; E11.22 Type 2 diabetes mellitus with diabetic chronic kidney disease; N18.30 Chronic kidney disease, stage 3 unspecified; E66.01 Morbid (severe) obesity due to excess calories; G47.33 Obstructive sleep apnea (adult) (pediatric); Z86.718 Personal history of other venous thrombosis and embolism; Z79.01 Long term (current) use of anticoagulants; Z79.891 Long term (current) use of opiate analgesic; Z95.5 Presence of coronary angioplasty implant and graft; Z92.3 Personal history of irradiation; Z92.21 Personal history of antineoplastic chemotherapy; Z87.891 Personal history of nicotine dependence; Z93.1 Gastrostomy status; Z88.0 Allergy status to penicillin; Z88.8 Allergy status to other drugs, medicaments and biological substances; Z20.822 Contact with and (suspected) exposure to COVID-19
CPT/HCPCS: 36415; 74176; 80053; 83690; 83735; 85025; 85610; 85730; 96372; 99284-25; C9803; G0378; J2212; U0003

== ENCOUNTER 2020-10-03 07:03 | Emergency (ER) | payer MEDICARE, BC ==
[~2020-10-03] VITALS: Ht 175.3 cm; Wt 100.2 kg
[~2020-10-03 07:03] MED LIST changes: +LORAZEPAM1 MG PO
--- OUTSIDE RECORDS SUMMARY | 2020-10-03 07:06 | XMS ---
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 Current PHONE: [phone] OSCAR ANTUNEZ [facility] 02/24/2019-Current PHONE: [phone] Derrick has no Care Guidelines for this patient. Care History Medical/Surgical 03/08/2020 [facility] - Patient is currently established with [facility]. If patient is seen in the ED during business hours. Please contact CHWs at [facility]. Care Recommendation: If this patient has had 5 or more Emergency Department visits in the last 12 months.\T\nbsp; Patient will require education on the scope and purpose of the ED as an acute care provider not a Primary Care Provider and should not be utilized for chronic conditions.\T\nbsp; These are guidelines and the provider should exercise clinical judgment when providing care. 02/24/2019 [facility] Patient has appt with PCP 02/25/2019 @ 11:40am. E.D. VISIT COUNT (12 MO.) 5 [facility] TOTAL 5 NOTE: Visits indicate total known visits. ED/UCC VISIT TRACKING (12 MO.) 10/03/2020 07:05 [facility] [place] TYPE: Emergency COMPLAINT: - FEEDING TUBE PROBLEM 04/18/2020 22:21 [facility] [place] TYPE: Emergency COMPLAINT: - UNABLE TO HAVE BOWEL MOVEMENT 04/05/2020 11:45 [facility] [place] TYPE: Emergency COMPLAINT: - FALL DIAGNOSES: - Other terminal clerk (current) drug therapy - Allergy status to narcotic agent - Personal history of nicotine dependence - Allergy status to other antibiotic agents - terminal manager (current) use of aspirin - Essential (primary) hypertension - Fracture of one rib, left side, initial encounter for closed fracture - Allergy status to narcotic agent - Allergy status to other drugs, medicaments and biological substances - Pure hypercholesterolemia, unspecified - Sleep apnea, unspecified - Type 2 diabetes mellitus without complications - Allergy status to penicillin - Fall on same level, unspecified, initial encounter - Allergy status to other drugs, medicaments and biological substances - Allergy status to other antibiotic agents - Hypothyroidism, unspecified 03/21/2020 20:57 [facility] [place] TYPE: Emergency COMPLAINT: - WEAKNESS 03/07/2020 19:07 [facility] [place] TYPE: Emergency COMPLAINT: - WEAKNESS INPATIENT VISIT TRACKING (12 MO.) 04/18/2020 22:22 [facility] TYPE: Observation COMPLAINT: - STERCORAL COLITIS, CONSTIPATION DIAGNOSES: - Personal history of irradiation - Chronic kidney disease, stage 3 unspecified - Other constipation - long-term (current) use of anticoagulants - long-term (current) use of opiate analgesic - Hypertensive chronic kidney disease with stage 1 through stage 4 chronic kidney disease, or unspecified chronic kidney disease - Allergy status to other drugs, medicaments and biological substances - Personal history of other venous thrombosis and embolism - Obstructive sleep apnea (adult) (pediatric) - Allergy status to penicillin - Malignant neoplasm of head, face and neck - Chronic kidney disease, stage 3 unspecified - Other specified noninfective gastroenteritis and colitis - Atherosclerotic heart disease of [place] coronary artery without angina pectoris - Type 2 diabetes mellitus with diabetic chronic kidney disease - Personal history of antineoplastic chemotherapy - Personal history of nicotine dependence - Presence of coronary angioplasty implant and graft - Gastrostomy status - Allergy status to other drugs, medicaments and biological substances - Morbid (severe) obesity due to excess calories - Hypothyroidism, unspecified 03/22/2020 09:12 [facility] [place] TYPE: Medical Surgical COMPLAINT: - POST OP WOUND INFECTION DIAGNOSES: - Allergy status to narcotic agent - Metabolic encephalopathy - Atherosclerotic heart disease of [place] coronary artery without angina pectoris - Coronary angioplasty status - Contact with and (suspected) exposure to other viral communicable diseases - long-term (current) use of opiate analgesic - Allergy status to other drugs, medicaments and biological substances - terminal manager (current) use of anticoagulants - Obstructive sleep apnea (adult) (pediatric) - Sepsis due to Methicillin susceptible Staphylococcus aureus - Sepsis, unspecified organism - Other terminal clerk (current) drug therapy - Other terminal clerk (current) drug therapy - Essential (primary) hypertension - Personal history of other venous thrombosis and embolism - Atherosclerotic heart disease of [place] coronary artery without angina pectoris - Paroxysmal atrial fibrillation - Secondary malignant neoplasm of other specified [...] of aspirin - Coronary angioplasty status - Metabolic encephalopathy - terminal manager (current) use of aspirin - terminal manager (current) use of opiate analgesic - Infection following a procedure, other surgical site, initial encounter - Hypothyroidism, unspecified - Allergy status to narcotic agent - Benign prostatic hyperplasia without lower urinary tract symptoms - Secondary and unspecified malignant neoplasm of lymph nodes of head, face and neck - long-term (current) use of anticoagulants - Allergy status to other drugs, medicaments and biological substances - Hypothyroidism, unspecified - Type 2 diabetes mellitus without complications - Sepsis due to Methicillin susceptible Staphylococcus aureus - Cellulitis of face - Secondary and unspecified malignant neoplasm of lymph nodes of head, face and neck - Chronic pain syndrome - Obstructive sleep apnea (adult) (pediatric) - Allergy status to penicillin - Allergy status to narcotic agent - Allergy status to other drugs, medicaments [...] COMPLAINT: - ACUTE RENAL FAILURE DIAGNOSES: - Metabolic encephalopathy - Secondary and unspecified malignant neoplasm of lymph node, unspecified - Difficulty in walking, not elsewhere classified - Squamous cell carcinoma of skin of other parts of face - Personal history of other venous thrombosis and embolism - Benign prostatic hyperplasia without lower urinary tract symptoms - long-term (current) use of opiate analgesic - Coronary angioplasty status - long-term (current) use of anticoagulants - Hypothyroidism, unspecified - Contact with and (suspected) exposure to other viral communicable diseases - Hyperlipidemia, unspecified - Secondary malignant neoplasm of other specified sites - Paroxysmal atrial fibrillation - Allergy status to other drugs, medicaments and biological substances - Allergy status to other drugs, medicaments and biological substances - Neoplasm related pain (acute) (chronic) - Dehydration - Acute kidney failure, unspecified - Atherosclerotic heart disease of [place] coronary artery without angina pectoris - Type 2 diabetes mellitus without complications - Allergy status to narcotic agent - Essential (primary) hypertension - Allergy status to narcotic agent - Mild cognitive impairment, so stated - Allergy status to penicillin - terminal manager (current) use of aspirin - Obstructive sleep apnea (adult) (pediatric) - Other custodial (current) drug therapy 02/25/2020 05:18 [facility] TYPE: Surgery DIAGNOSES: - Dependence on [...] Morbid (severe) obesity due to excess calories [email or web address]
[2020-10-03] MEDS ORDERED: ZETIA10 MG PO (07:17)
== END 2020-10-03 08:20 | disposition home or self-care (01) ==
LOC: ED 07:03
DX: Z43.1 Encounter for attention to gastrostomy (principal); E11.9 Type 2 diabetes mellitus without complications; E78.00 Pure hypercholesterolemia, unspecified; I10 Essential (primary) hypertension; E03.9 Hypothyroidism, unspecified; G47.30 Sleep apnea, unspecified; Z87.891 Personal history of nicotine dependence; Z88.8 Allergy status to other drugs, medicaments and biological substances; Z88.0 Allergy status to penicillin; Z88.5 Allergy status to narcotic agent; Z88.1 Allergy status to other antibiotic agents; Z79.899 Other long term (current) drug therapy; Z79.82 Long term (current) use of aspirin
CPT/HCPCS: 99283

== ENCOUNTER 2021-03-04 17:13 | Emergency (ER) | payer MEDICARE, BC ==
[~2021-03-04] VITALS: Ht 175.3 cm; Wt 99.1 kg
[~2021-03-04 17:13] MED LIST changes: +ZETIA10 MG PO
[2021-03-04] MEDS ORDERED: ZOFRAN4 MG PO (23:34)
--- NOTE | 2021-03-05 15:01 | EKG ---
[facility] [address] [place] [address] Signed Sinus bradycardia Otherwise normal ECG When compared with ECG of 05-APR-2020 12:20, Vent. rate has decreased BY 37 BPM Confirmed by SUREKHA ESPARZA MD ([id number]) on 03/05/2021 3:01:24 PM Electronically Signed By: SUREKHA ESPARZA MD 03/05/21 1501 PATIENT NAME: NOLA VELASCO Electrocardiogram DATE OF : 47 PHYSICIAN: SUREKHA ESPARZA MD REPORT #: [id number] REPORT IS CONFIDENTIAL AND NOT TO BE RELEASED WITHOUT AUTHORIZATION
== END 2021-03-04 23:43 | disposition home or self-care (01) ==
LOC: ED 17:13
DX: G89.18 Other acute postprocedural pain (principal); R10.84 Generalized abdominal pain; M54.50 Low back pain, unspecified; R11.2 Nausea with vomiting, unspecified; R06.02 Shortness of breath; E11.9 Type 2 diabetes mellitus without complications; E78.00 Pure hypercholesterolemia, unspecified; I10 Essential (primary) hypertension; E03.9 Hypothyroidism, unspecified; Z87.891 Personal history of nicotine dependence; Z85.828 Personal history of other malignant neoplasm of skin; Z96.653 Presence of artificial knee joint, bilateral; Z96.612 Presence of left artificial shoulder joint; Z90.89 Acquired absence of other organs; Z91.048 Other nonmedicinal substance allergy status; Z88.0 Allergy status to penicillin; Z88.5 Allergy status to narcotic agent; Z88.8 Allergy status to other drugs, medicaments and biological substances; Z79.82 Long term (current) use of aspirin; Z79.899 Other long term (current) drug therapy; Z20.822 Contact with and (suspected) exposure to COVID-19
CPT/HCPCS: 70486; 71045; 74176; 80053; 81001; 83690; 83735; 84484; 85025; 85379; 93005; 93010; 96374; 96375; 96376; 99284-25; A9270; C9803; J2270; J2405; U0003